=== PATIENT | male | born 1950 | race Caucasian/White ===

== ENCOUNTER → 2018-10-17 07:57 | Outpatient (CLI) | payer OTHER, SELFPAY ==
[2017-06-26 15:34] VITALS: BMI 36.1
[2018-10-17 09:27] LABS: Anion Gap 7 (5-15); BUN 20 mg/dL (7-18); Calcium,Total 8.2 mg/dL (8.5-10.1); Chloride 108 mmol/L (98-107); Cholesterol 152 mg/dL (200); Creatinine, Serum 0.95 mg/dL (0.70-1.30); EST Glomerular Filtration Rate 84 mL/min (>60); Est Glom Filt Rate - Afr Amer 101 mL/min (>60); Glucose 95 mg/dL (74-106); High Density Lipoprotein 37 mg/dL; Potassium 4.1 mmol/L (3.5-5.1); Sodium Level 143 mmol/L (136-145); Thyroid Stim Hormone (TSH) 1.39 uIU/mL (0.358-3.74); Triglycerides 137 mg/dL; Very Low Density Lipoprotein 27 mg/dL (5-40)
== END ==
PROVIDERS: Family Provider Family Medicine; PCP Family Medicine; Referring Provider Family Medicine; Visit Provider Family Medicine
DX: E78.5 Hyperlipidemia, unspecified (principal); E03.9 Hypothyroidism, unspecified; G20 Parkinson's disease
CPT/HCPCS: 36415; 80048; 80061; 84443

== ENCOUNTER → 2019-04-15 17:01 | Outpatient (CLI) | payer OTHER, SELFPAY ==
[2017-06-26 15:34] VITALS: BMI 36.1
[2019-04-15 17:41] LABS: Absolute Neutrophil Count 3.8 X10^3/uL (2.0-7.7); Basophil# 0.02 X10^3/uL; Basophil% 0.3 % (0-1); Eosinophil# 0.12 X10^3/uL; Hematocrit 42.6 % (40-54); Hemoglobin 13.5 g/dl (13.0-16.5); Lymphocyte % 25.2 % (19-41); Mean Corp Hgb Conc 31.7 g/gl (32-36); Mean Corpuscular Hgb 29.2 pg (27.0-32.0); Mean Corpuscular Volume 92.2 fL (80-94); Mean Platelet Vol. 9.6 fl (6.2-12.0); Monocyte# 0.47 X10^3/uL; Monocyte% 7.9 % (0-10); Neutrophil # 3.83 X10^3/uL (2.7-7.7); Neutrophil % 64.4 % (47-70); Platelet Count 257 K/mm3 (150-450); RBC Distribution Width CV 14.3 % (11.6-14.6); RBC Distribution Width SD 47.6 fl (35.1-43.9); Red Blood Count 4.62 M/mm3 (4.6-6.2)
[2019-04-15 17:45] LABS: POSITIVE COUNT NO; POSITIVE DIFFERENTIAL NO; POSITIVE MORPHOLOGY NO
[2019-04-15 18:35] LABS: D-Dimer Quantitative (DVT/PE) 0.73 FEU/ug/m (0.27-0.49)
[2019-04-15 18:41] LABS: ALB/GLOB Ratio 1.1 RATIO (0.9-2.4); AST(SGOT) 18 U/L (15-37); Alanine Aminotransfer ALT/SGPT 16 U/L (16-61); Albumin, Serum 3.6 g/dL (3.2-5.0); Alkaline Phosphatase 72 U/L (45-117); Anion Gap 5 (5-15); BUN 15 mg/dL (7-18); BUN/Creat Ratio 15.7 RATIO (10-20); Calcium,Total 8.3 mg/dL (8.5-10.1); Chloride 108 mmol/L (98-107); Creatinine, Serum 0.96 mg/dL (0.70-1.30); EST Glomerular Filtration Rate 83 mL/min (>60); Est Glom Filt Rate - Afr Amer 101 mL/min (>60); Globulin 3.2 g/dL (2.2-4.2); Glucose 107 mg/dL (74-106); PSA,Total - Annual Screen 2.14 ng/mL (0.00-4.00); Potassium 4.2 mmol/L (3.5-5.1); Protein, Total 6.8 g/dL (6.4-8.2); Sodium Level 142 mmol/L (136-145); Thyroid Stim Hormone (TSH) 1.02 uIU/mL (0.358-3.74)
== END ==
PROVIDERS: Family Provider Family Medicine; PCP Family Medicine; Referring Provider Family Medicine; Visit Provider Family Medicine
DX: Z12.5 Encounter for screening for malignant neoplasm of prostate (principal); M79.89 Other specified soft tissue disorders
CPT/HCPCS: 36415; 80053; 84153; 84443; 85025; 85379; G0103

== ENCOUNTER 2019-04-16 10:03 | Emergency (ER) | payer OTHER, SELFPAY ==
[2019-04-16 10:04] VITALS: BP 151/90; PULSE 70; RESP 19; TEMP 36.5; O2SAT 95; BMI 39.5
--- NOTE | 2019-04-16 10:24 | EKG12_ITS ---
Test Reason : SOB Blood Pressure : / mmHG Vent. Rate : 069 BPM Atrial Rate : 069 BPM P-R Int : 190 ms QRS Dur : 086 ms QT Int : 388 ms P-R-T Axes : 073 -32 003 degrees QTc Int : 415 ms Normal sinus rhythm Left axis deviation Inferior infarct , age undetermined Abnormal ECG When compared with ECG of 01-DEC-2012 05:54, Premature atrial complexes are no longer Present Inferior infarct is now Present Nonspecific T wave abnormality no longer evident in Lateral leads Confirmed by JIL ARREDONDO ([id number]), writer editor FRIDA ANTUNEZ ([id number]) on 04/28/2019 1:01:52 PM Referred By: Zana Antunez Confirmed By:SHERRELL ARREDONDO
--- NOTE | 2019-04-16 10:29 | ED.VIS.GEN ---
History of Present Illness Chief Complaint: Shortness of Breath Detail of Chief Complaint: Sent because of elevated d-dimer Informant: Patient, PCP Onset: Weeks Context: Gradual Onset Timing: Continuous Quality: Shortness of breath for approximately 3 weeks and swelling greater than 1 w Location: Respiratory and lower extremity Current Severity: Mild Maximum Severity: Moderate Worsened by: Increased shortness of breath with exertion Relieved by: Nothing Associated Symptoms: 5 pound weight gain and stable two-pillow orthopnea Narrative: Patient is an elderly male with no history of coronary disease, congestive heart failure who was sent to the emergency room because of a d-dimer of 0.73. I took the call from his physician, Dr. MILIND Antunez. He informed me that he did not believe he had a PE or DVT when he ordered a d-dimer. He ordered it because of bilateral leg swelling. Patient denies fever, chills night sweats. He denies ocular, visual auditory symptoms. He denies rhinorrhea, congestion or postnasal drainage. He denies sore throat. He denies cough or pleuritic chest pain. He denies exertional chest pain. He denies diaphoresis. He denies hematemesis, melena hematochezia. He states he has not been as active and sitting more. He does report stable two-pillow orthopnea. He denies PND. He states he had outpatient tests drawn yesterday and was contacted last evening because of abnormal blood test. - Past Medical History (1) Glaucoma Status: Chronic (2) Hypothyroidism Status: Chronic (3) SAUL (obstructive sleep apnea) Status: Chronic Past Medical History - Allergies and Home Meds Allergies/Adverse Reactions: Allergies varicella virus vaccine live [From Varivax (PF)] Allergy (Verified 04/16/19 10:07) Swelling swelling Primary Care Physician: Zana Antunez MD [Primary Care Provider] - Prior records reviewed: Yes - Obstructive sleep apnea Lives: Alone Smoking Status: Never smoker Alcohol: None Drugs: None - Family History Maternal Family History: Reports: No pertinent history Review of Systems General: Denies: Chills, Fever, Sweats Eyes: Denies: Visual changes - bilaterally, Blurred Vision - bilaterally, Diplopia ENT: Denies: Rhinorrhea, Sore throat Cardiovascular: Denies: Chest pain, Palpitations Respiratory: Reports: Dyspnea, Dyspnea on exertion, Orthopnea. Denies: Cough, Sputum, Paroxysmal nocturnal dyspnea, -, - Gastrointestinal: Denies: Abdominal pain, Nausea, Vomiting, Diarrhea, Melena, Hematochezia Genitourinary: Denies: Dysuria, Hematuria, Frequency Musculoskeletal: Reports: Swelling - Both lower extremities to groin. Denies: Myalgias, Arthralgias, Back pain, Extremity Pain Skin: Denies: Rash, Wounds Neurological: Reports: Weakness. Denies: Headache, Parasthesia, Numbness Hematologic: Denies: Easy bruising, Easy bleeding Allergy: Denies: Uticaria, Swelling of the mouth Physical Exam Vital Signs/Narrative: Vital Signs Temp Pulse Resp BP Pulse Ox 04/16/19 10:04 97.7 F L 70 19 H 151/90 H 95 Inital Vital Signs reviewed: Yes General: Well nourished, Well developed, Obese, No Acute Distress Head: Normocephalic, Atraumatic Eyes: Perrl, EOMI. Negative for: Pale conjunctiva, Scleral icterus, - ENT: Moist mucous membranes, No rhinorrhea Neck: Supple, Nontender, No lymphadenopathy, No JVD, - Cardiovascular: Regular rate, Regular rhythm, No murmurs Respiratory: No distress, CTA bilaterally, Chest nontender Abdomen: Soft, Nontender, Nondistended, Normal bowel sounds, No masses Rectal: Deferred : - - Patient states he saw his urologist last week and was informed that his prostate is slightly enlarged. Back: Nontender, Normal Inspection, - - Mild pitting edema of the sacral region Extremities: Nontender, Edema - 3+ pitting Skin: Normal color, No rash, No Trauma. Negative for: Cyanosis, Jaundice Neurological: Alert, Oriented x3, Cranial nerves II-XII grossly intact, Normal Strength, Normal Sensation Psychological: Depressed Diagnostic/Tx/Re-eval Chest X-Ray - ED: 2 View, Read by ED Physician, Normal, Heart, Lungs, Mediastinum, Bony Structures, No Acute Disease Impressions Chest X-Ray 04/16/19 11:01 IMPRESSION: Stable examination. No acute abnormality is seen. Electronically Signed: Og Esquivel, at 11:16 EDT , Service support , 04/16/19 11:01 Chest PA and Lateral [RAD] Stat Laboratory Results 04/16/19 04/16/19 10:43 10:43 Troponin I < 0.015 B-Natriuretic Peptide 36.3 - Rhythm Strip Rhythm Strip: Sinus Rhythm Rate: 71 Ectopy: None - EKG Initial EKG Interpretation: Sinus Rhythm - Ventricular rate 69. HI interval, QRS duration QT interval are normal. Telephone to the left. Artifact secondary to movements noted. Computer read inferior infarct of undetermined age. There is a insignificant flipped T wave in lead III which is a normal variant. - Medical Decision Making Work from yesterday was reviewed. CBC, conference of metabolic panel were normal. D-dimer was 0.73. Using MD calculator conclusion when corrected for age unlikely pulmonary embolus. With history of weight gain, decreased mobility chronic 2 pillow orthopnea history obstructive sleep apnea suspect right heart failure and not pulmonary embolus. To evaluate patient's symptoms chest x-ray was ordered as well as EKG and troponin. Will also order BNP. Patient was informed of his test results from yesterday and today. Suspect patient's bilateral leg edema secondary to noncompliance with his BiPAP machine for obstructive sleep apnea. Will obtain venous duplex study to evaluate for DVT. If negative will discharge with appropriate home-going instruction for obstructive sleep apnea. And will place or adjust dosage of diuretics. Venous duplex study reveals lymphedema. There is no evidence of DVT. With history of weight gain, lymphedema and noncompliance with CPAP/BiPAP suspect this is contributing to patient's bilateral lymphedema. Since patient is on no diuretic will start on 20 mg a day and have him follow-up with Dr. MILIND Antunez in 3 to 5 days. ED Disposition - Plan for ED Patient: Disposition: Home or Assisted Living Diagnosis: Lymphedema of both lower extremities, Obstructive sleep apnea Instructions: ED Lymphedema, ED Apnea Sleep Obstructive Prescriptions: Furosemide [Lasix] 20 mg PO DAILY #30 tab Referrals: Zana Antunez MD [Primary Care Provider] - 1 Week Additional Instructions: Many of your symptoms are probably related to noncompliance with CPAP/BiPAP machine for your obstructive sleep apnea. It is very important for you to use your machine. Noncompliance may lead to pulmonary hypertension, heart failure, increasing leg edema, hypertension and generalized weakness/fatigue.
--- NOTE | 2019-04-16 11:01 | RAD_ITS ---
STUDY: X-RAY CHEST REASON FOR EXAM: Male, 68 years old. Shortness of breath. History of anasarca. TECHNIQUE: PA and lateral views of the chest. COMPARISON: Comparison is made with prior study dated December 27, 2017. FINDINGS: EKG electrodes are seen. Mild elevation of the right hemidiaphragm. There is no demonstrated pleural abnormality. Normal size heart. Normal mediastinum and lazara. There is prominence of the pulmonary hilar arteries without peripheral pulmonary vascular congestion, suggesting pulmonary hypertension. There is atherosclerotic tortuosity of the aortic arch and descending thoracic aorta. There are diffuse degenerative changes of the visualized thoracic spine. Normal visualized ribs, clavicles, and shoulders. There is no demonstrated abnormality of the visualized soft tissue structures of the upper abdomen. RAD/Chest PA and Lateral IMPRESSION: Stable examination. No acute abnormality is seen. Electronically Signed: Og Esquivel, at 11:16 EDT , Service support ,
[2019-04-16 11:23] LABS: BNP,B-Type NATRIURETIC PEPTIDE 36.3 pg/mL (0-100)
--- NOTE | 2019-04-16 11:29 | VDLE_ITS ---
Reason For Study: Elevated D-dimer RIGHT LEFT GSV is normal. GSV is normal. CFV is compressible, spontaneous, phasic, CFV is compressible, spontaneous, phasic, competent and demonstrates normal competent, and demonstrates normal augmentation. augmentation. FV is compressible, spontaneous, phasic, FV is compressible, spontaneous, phasic, competent and demonstrates normal competent and demonstrates normal augmentation. augmentation. POP V is compressible, spontaneous, phasic, POP V is compressible, spontaneous, phasic, competent and demonstrates normal competent and demonstrates normal augmentation. augmentation. T/P Trunk is compressible. T/P Trunk is compressible. PTV is compressible. PTV is compressible. RT PerV is compressible. LT PerV is compressible. Procedure Exam performed in department. A preliminary report was called and/or faxed to Dr. Wan. Interpretation Summary No evidence for acute deep venous thrombosis bilateral lower extremities with patent and compressible bilateral great saphenous veins. Ordering Physician: Robby Wan Referring Physician: Zana Antunez M.D. Performed By: Destini King RVT
[2019-04-16 12:55] VITALS: BP 146/98; PULSE 66; O2SAT 99
== END 2019-04-16 12:55 | disposition home or self-care (01) ==
PROVIDERS: Emergency Provider Emergency Medicine; Family Provider Family Medicine; PCP Family Medicine
DX: I89.0 Lymphedema, not elsewhere classified (principal); G47.33 Obstructive sleep apnea (adult) (pediatric); E03.9 Hypothyroidism, unspecified; H40.9 Unspecified glaucoma; E66.9 Obesity, unspecified; Z68.39 Body mass index [BMI] 39.0-39.9, adult
CPT/HCPCS: 71046; 83880; 84484; 93005; 93970; 99285; A4216

== ENCOUNTER → 2019-07-12 13:55 | Outpatient (CLI) | payer OTHER, SELFPAY ==
[2019-07-12 15:18] LABS: Absolute Lymphocyte Count 1.65 X10^3/uL (0.83-4.51); Absolute Neutrophil Count 3.8 X10^3/uL (2.0-7.7); Basophil# 0.04 X10^3/uL; Basophil% 0.7 % (0-1); Eosinophil# 0.06 X10^3/uL; Hematocrit 46.3 % (40-54); Hemoglobin 15.1 g/dL (13.0-16.5); Lymphocyte # 1.65 X10^3/ul (4.0); Lymphocyte % 27.2 % (19-41); Mean Corp Hgb Conc 32.6 g/dL (32-36); Mean Corpuscular Hgb 30.3 pg (27.0-32.0); Mean Corpuscular Volume 92.8 fL (80-94); Monocyte% 8.2 % (0-10); NRBC Flagged by Analyzer 0 % (0-5); Neutrophil % 62.6 % (47-70); Platelet Count 256 K/mm3 (150-450); RBC Distribution Width CV 13.7 % (11.6-14.6); RBC Distribution Width SD 46.6 fl (35.1-43.9); Red Blood Count 4.99 M/mm3 (4.6-6.2); White Blood Count 6.1 K/mm3 (4.4-11.0)
[2019-07-12 15:34] LABS: ALB/GLOB Ratio 1.1 RATIO (0.9-2.4); AST(SGOT) 18 U/L (15-37); Alanine Aminotransfer ALT/SGPT 17 U/L (16-61); Albumin, Serum 3.9 g/dL (3.2-5.0); Alkaline Phosphatase 66 U/L (45-117); Anion Gap 4 (5-15); BUN 20 mg/dL (7-18); BUN/Creat Ratio 20.1 RATIO (10-20); Calcium,Total 8.5 mg/dL (8.5-10.1); Chloride 107 mmol/L (98-107); EST Glomerular Filtration Rate 80 mL/min (>60); Est Glom Filt Rate - Afr Amer 96 mL/min (>60); Globulin 3.7 g/dL (2.2-4.2); Glucose 98 mg/dL (74-106); Potassium 3.7 mmol/L (3.5-5.1); Protein, Total 7.6 g/dL (6.4-8.2); Sodium Level 140 mmol/L (136-145)
== END ==
PROVIDERS: Family Provider Family Medicine; PCP Family Medicine; Visit Provider Nurse Practitioner Family
DX: R10.31 Right lower quadrant pain (principal)
CPT/HCPCS: 36415; 80053; 85025

== ENCOUNTER → 2019-07-17 10:01 | Outpatient (CLI) | payer OTHER, SELFPAY ==
--- NOTE | 2019-07-17 10:19 | RAD_ITS ---
STUDY: X-RAY - LUMBAR SPINE REASON FOR EXAM: Male, 69 years old. Back pain TECHNIQUE: 5 view(s) of the lumbar spine were obtained. COMPARISON: None FINDINGS: Normal lumbar lordosis. There is no substantial scoliosis. There is a normal alignment of the vertebrae. There is multilevel endplate spondylosis of the lumbar vertebrae. There is multi-level degenerative disc disease with multi-level disc space narrowing. Postsurgical fusion at L4-5 with artificial intervertebral disc spacer The soft tissue structures are unremarkable. RAD/L/S Spine Min 4 Views IMPRESSION: Degenerative changes of the spine, as detailed above. Electronically Signed: Rodney Tate DO at 11:15 EDT Tel , Service support ,
--- NOTE | 2019-07-17 10:19 | RAD_ITS ---
STUDY: X-RAY - THORACIC SPINE REASON FOR EXAM: Male, 69 years old. Back pain TECHNIQUE: 3 view(s) of the thoracic spine were obtained. COMPARISON: None. FINDINGS: Normal kyphosis of the thoracic spine. There is no substantial scoliosis. There is multilevel endplate spondylosis of the thoracic vertebrae. There is multilevel disc space narrowing of the thoracic spine. The soft tissue structures are unremarkable. RAD/Thoracic Spine 3 Views IMPRESSION: Degenerative disc disease without acute findings Electronically Signed: Rodney Tate DO at 11:15 EDT Tel , Service support ,
== END ==
PROVIDERS: Family Provider Family Medicine; PCP Family Medicine; Referring Provider Family Medicine; Visit Provider Family Medicine
DX: M54.5 Low back pain (principal); M54.6 Pain in thoracic spine
CPT/HCPCS: 72072; 72110

== ENCOUNTER → 2019-10-13 17:05 | Outpatient (CLI) | payer OTHER, SELFPAY ==
[2019-10-13 17:53] LABS: Hemoglobin A1c 5.6 % (4.2-6.3)
[2019-10-13 18:16] LABS: ALB/GLOB Ratio 1.2 RATIO (0.9-2.4); AST(SGOT) 19 U/L (15-37); Alanine Aminotransfer ALT/SGPT 18 U/L (16-61); Albumin, Serum 3.9 g/dL (3.2-5.0); Alkaline Phosphatase 76 U/L (45-117); Anion Gap 6 (5-15); BUN 18 mg/dL (7-18); BUN/Creat Ratio 20.3 RATIO (10-20); Calcium,Total 8.9 mg/dL (8.5-10.1); Chloride 107 mmol/L (98-107); Creatinine, Serum 0.89 mg/dL (0.70-1.30); EST Glomerular Filtration Rate 91 mL/min (>60); Est Glom Filt Rate - Afr Amer 110 mL/min (>60); Globulin 3.3 g/dL (2.2-4.2); Glucose 110 mg/dL (74-106); Potassium 4.2 mmol/L (3.5-5.1); Protein, Total 7.2 g/dL (6.4-8.2); Sodium Level 141 mmol/L (136-145); T4 Free Direct 1.15 ng/dL (0.76-1.46); Thyroid Stim Hormone (TSH) 1.54 uIU/mL (0.358-3.74)
== END ==
PROVIDERS: Family Provider Family Medicine; PCP Family Medicine; Referring Provider Family Medicine; Visit Provider Family Medicine
DX: R73.09 Other abnormal glucose (principal); E66.9 Obesity, unspecified; E03.9 Hypothyroidism, unspecified
CPT/HCPCS: 36415; 80053; 83036; 84439; 84443

== ENCOUNTER → 2019-11-12 20:00 | Outpatient (CLI) | payer OTHER, SELFPAY | PROVIDERS: Family Provider Family Medicine; PCP Family Medicine; Referring Provider Family Medicine; Visit Provider Family Medicine | DX: G47.33 Obstructive sleep apnea (adult) (pediatric) (principal) | CPT/HCPCS: 95811 ==

== ENCOUNTER 2019-11-19 01:56 | Inpatient (IN) | payer OTHER, MEDICARE, SELFPAY ==
[2019-11-19] VITALS (16 sets, daily range): BP systolic 103–189; BP diastolic 66–109; PULSE 57–74; RESP 16–19; TEMP 36.5–37.7; O2SAT 94–99; BMI 38.1; BMI 36.9; BMI 36.8
--- NOTE | 2019-11-19 02:13 | CT_ITS ---
STUDY: CT BRAIN WITHOUT CONTRAST REASON FOR EXAM: Male, 69 years old. Headache for two weeks. Patient has Parkinson''s disease. RADIATION DOSAGE (If Supplied By Facility): CTDIvol = ( 44.99 ) mGy, DLP = ( 846.73 ) mGycm TECHNIQUE: Transaxial CT imaging of the brain was performed without administration of intravenous contrast material. Multiplanar reformations are submitted for interpretation. Individualized dose optimization techniques were used for this CT. COMPARISON: MRI of the brain dated December 23, 2014. FINDINGS: Normal soft tissue structures. Normal calvarium. There is mild cerebral atrophy with widening of the extra-axial spaces and ventricular dilatation. Normal white matter tracts of the cerebral hemispheres. Normal basal ganglia and thalami. Normal brainstem. There is mild cerebellar atrophy. There is no intracranial hemorrhage. There is minimal atherosclerotic calcification of the intracranial arteries. There is mild mucoperiosteal thickening within the ethmoid sinuses. There is moderate deviation of nasal septum towards the right. CT/Brain/Head without Contrast IMPRESSION: 1. Chronic involutional changes of the brain. 2. No CT evidence of acute intracranial hemorrhage. Electronically Signed: Kaylin Antunez MD at 3:36 EST , Service support ,
[2019-11-19] MEDS: Ketorolac 15 MG/ML Vial IV ×2 (02:32→04:45)
[2019-11-19] MEDS: Metoclopramide 10 MG/2 ML Vial 5 MG IV (02:32)
[2019-11-19] MEDS: DiphenhydrAMINE 50 MG/ML Syringe 12.5 MG IV (02:32)
[2019-11-19 02:35] LABS: Absolute Lymphocyte Count 1.73 X10^3/uL (0.83-4.51); Absolute Neutrophil Count 5.1 X10^3/uL (2.0-7.7); Basophil# 0.06 X10^3/uL; Basophil% 0.8 % (0-1); Eosinophil# 0.12 X10^3/uL; Eosinophils% 1.6 % (0-5); Hematocrit 47.1 % (40-54); Hemoglobin 15.2 g/dL (13.0-16.5); Lymphocyte # 1.73 X10^3/ul (4.0); Lymphocyte % 22.6 % (19-41); Mean Corp Hgb Conc 32.3 g/dL (32-36); Mean Corpuscular Hgb 29.7 pg (27.0-32.0); Mean Corpuscular Volume 92.2 fL (80-94); Mean Platelet Vol. 9.1 fl (6.2-12.0); Monocyte# 0.63 X10^3/uL; Monocyte% 8.2 % (0-10); NRBC Flagged by Analyzer 0 % (0-5); Neutrophil # 5.11 X10^3/uL (2.7-7.7); Neutrophil % 66.7 % (47-70); Platelet Count 250 K/mm3 (150-450); RBC Distribution Width CV 13.3 % (11.6-14.6); RBC Distribution Width SD 45.1 fl (35.1-43.9); Red Blood Count 5.11 M/mm3 (4.6-6.2); White Blood Count 7.7 K/mm3 (4.4-11.0)
[2019-11-19 02:52] LABS: Anion Gap 5 (5-15); BUN 20 mg/dL (7-18); BUN/Creat Ratio 19.8 RATIO (10-20); Calcium,Total 9.1 mg/dL (8.5-10.1); Chloride 107 mmol/L (98-107); Creatinine, Serum 1.01 mg/dL (0.70-1.30); EST Glomerular Filtration Rate 78 mL/min (>60); Est Glom Filt Rate - Afr Amer 95 mL/min (>60); Estimated Creatinine Clearance 80.21 ml/min; Glucose 111 mg/dL (74-106); Potassium 3.9 mmol/L (3.5-5.1); Sodium Level 140 mmol/L (136-145)
--- NOTE | 2019-11-19 03:31 | ED.VIS.GEN ---
History of Present Illness Chief Complaint: Headache Informant: Patient, Family Onset: Weeks - 2 weeks Context: Gradual Onset Timing: Waxes and wanes Current Severity: Moderate Maximum Severity: Severe Narrative: Patient presents with a two-week history of headache. He describes a bandlike sensation around his head. He denies light sensitivity or vomiting. No recent head injury. Patient does have a history of Parkinson's and his Mirapex was recently stopped. He is unsure if this is correlating with his headaches. Patient states his headaches do improve for short time after taking carbidopa, but never completely resolved. He was seen by neurology and is scheduled for an outpatient CAT scan of his head next week. - Past Medical History (1) Parkinsons Status: Chronic (2) BPH (benign prostatic hyperplasia) Status: Chronic (3) GERD (gastroesophageal reflux disease) Status: Chronic (4) Glaucoma Status: Chronic (5) Hypothyroidism Status: Chronic (6) SAUL (obstructive sleep apnea) Status: Chronic Past Medical History - Allergies and Home Meds Allergies/Adverse Reactions: Allergies varicella virus vaccine live [From Varivax (PF)] Allergy (Verified 11/19/19 01:57) Swelling swelling Primary Care Physician: Zana Vásquez MD [Primary Care Provider] - Prior records reviewed: Yes Lives: Spouse/ Significant Other Smoking Status: Never smoker - Family History Maternal Family History: Reports: No pertinent history Review of Systems General: Denies: Chills, Fever Eyes: Denies: Visual changes - bilaterally ENT: Denies: Bilateral ear pain Cardiovascular: Denies: Chest pain Respiratory: Denies: Dyspnea, Cough Gastrointestinal: Denies: Abdominal pain, Nausea, Vomiting, Diarrhea Musculoskeletal: Denies: Swelling, Extremity Pain Skin: Denies: Rash Neurological: Reports: Headache. Denies: Parasthesia, Numbness Hematologic: Denies: Easy bruising Allergy: Denies: Uticaria Physical Exam Vital Signs/Narrative: Vital Signs Temp Pulse Resp BP Pulse Ox 11/19/19 02:35 98 11/19/19 01:57 97.7 F L 69 16 188/109 H 98 Inital Vital Signs reviewed: Yes General: Well nourished, Well developed Head: Normocephalic ENT: Moist mucous membranes Neck: Supple Cardiovascular: Regular rate, Regular rhythm Respiratory: No distress, CTA bilaterally Abdomen: Soft, Nontender Skin: Normal color, No rash Neurological: Alert, Oriented x3, - - Good strength and sensation. Underlying Parkinson's noted. Psychological: Normal affect Diagnostic/Tx/Re-eval Impressions Brain CT 11/19/19 02:13 IMPRESSION: 1. Chronic involutional changes of the brain. 2. No CT evidence of acute intracranial hemorrhage. Electronically Signed: Kaylin Antunez MD at 3:36 EST , Service support , 11/19/19 02:13 Brain/Head without Contrast [CT] Stat Laboratory Results 11/19/19 11/19/19 02:33 02:33 WBC 7.7 RBC 5.11 Hgb 15.2 Hct 47.1 MCV 92.2 MCH 29.7 MCHC 32.3 RDW Std Deviation 45.1 H RDW Coeff of Madisyn 13.3 Plt Count 250 MPV 9.1 Immature Gran % (Auto) 0.100 Neut % (Auto) 66.7 Lymph % (Auto) 22.6 Throckmorton % (Auto) 8.2 Eos % (Auto) 1.6 Baso % (Auto) 0.8 Absolute Neuts (auto) 5.1 Absolute Lymphs (auto) 1.73 Nucleated RBC % 0 Sodium 140 Potassium 3.9 Chloride 107 Carbon Dioxide 28.0 Anion Gap 5 BUN 20 H Creatinine 1.01 Estim Creat Clear Calc 80.21 Est GFR (MDRD) Af Amer 95 Est GFR (MDRD) Non-Af 78 BUN/Creatinine Ratio 19.8 Glucose 111 H Calcium 9.1 - Medical Decision Making Patient was initially given small doses of Toradol, Reglan, Benadryl. On repeat evaluation he stated his headache was down to a 4. His blood pressure was still quite elevated, in the 180s systolic. He was given a dose of labetalol and blood pressure improved to the 160s. When I went back into reevaluate him he stated his headache was worsening again and as I recycled the blood pressure in the room it was back in the high 180s systolic. Patient was given another round of Toradol along with a dose of steroids. At this time he states his headache is somewhat improved, but blood pressure when I walk in the room is 220 systolic. Patient's heart rate is in the mid to high 50s. I will start Cardene as it does not tend to drop the heart rate and we can slowly bring his blood pressure down. This may be contributing to his headache. I will speak with hospitalist regarding admission. ED Disposition - Plan for ED Patient: Disposition: Acute Care Hospital [facility] Diagnosis: Hypertensive urgency Referrals: Zana Vásquez MD [Primary Care Provider] -
[2019-11-19] MEDS: MethylPREDNISolone 125 MG/2 ML Vial IV (04:45)
[2019-11-19] MEDS: fentaNYL 100 MCG/2 ML Ampul 25 MCG IV (06:07)
--- NOTE | 2019-11-19 06:38 | EKG12_ITS ---
Test Reason : Blood Pressure : / mmHG Vent. Rate : 060 BPM Atrial Rate : 060 BPM P-R Int : 168 ms QRS Dur : 090 ms QT Int : 412 ms P-R-T Axes : 052 -35 -09 degrees QTc Int : 412 ms Normal sinus rhythm Left axis deviation Abnormal ECG Confirmed by EVELIN WALKER, GALLITO ([id number]), assistant film editor FRIDA ESCOBAR ([id number]) on 11/22/2019 1:30:28 PM Referred By: JEFF Confirmed By:GALLITO WATERS MD
[2019-11-19] MEDS: LORazepam 2 MG/ML Syringe 1 MG IV ×2 (09:42→14:32)
[2019-11-19] MEDS: Aspirin E.C. 81 MG Tablet PO (09:42)
[2019-11-19] MEDS: cloNIDine HCl 0.2 MG Tablet PO (09:42)
[2019-11-19] MEDS: Dorzolamide HCL/Timolol 10 ml Bottle 1 DRP OPHTHALMIC ×2 (10:42→22:05)
[2019-11-19] MEDS: Heparin Injection (Vial) 5,000 UNIT/ML VIAL 5000 UNIT SC ×2 (10:44→22:05)
[2019-11-19] MEDS: Tolterodine Tartrate 4 MG CAP.SA PO (10:45)
[2019-11-19] MEDS: Carbidopa/Levodopa 25/100 Tablet PO ×4 (10:45→22:38)
[2019-11-19] MEDS: CARBIDOPA/LEVODOPA CR 50/200 Tablet PO (10:53)
[2019-11-19] MEDS: Tamsulosin HCl 0.4 MG Capsule PO ×2 (11:19→18:16)
--- NOTE | 2019-11-19 11:50 | CASEMGMT ---
RN ANA [employer] CM to room to meet with patient for initial transition planning/care coordination assessment. RN ANA introduced self and role at [facility]. Pt voices understanding and consents to assessment at this time. Pt resting in bed in no distress at this time. Pt is A/O at this time and answers all questions appropriately. Care providers, pharmacy, and demographics verified/updated at this time. PCP: Thalia Specialists: Tayla (neuro), Veronica (urology) Preferred Pharmacy: [facility] Insurance: [employer], babberly A Prescription Benefit: Yes Living Will/HPOA: States does not have LW or HCPOA . Interested in more information and would like to talk with SW but would like to have his present. SW, Carmen, made aware. Pt asked to let staff know when his comes in to see if SW is available to come talk with them. LNOK: Living Arrangements: Lives with his in one-story home w/basement. Denies difficulty with stairs. Is independent with ADL's, except needs some assistance with donning shoes/socks since his back surgery in 2017. does home mgmt tasks. Transportation: Pt does not drive. Another teacher takes him to/from work. drives and will take him home @ discharge. Denies transportation concerns. DME: States has the following DME: CPAP. Pt states no need for further DME at this time. HHC/SNF: Hx RU in 2017 after back surgery. No history of HHC. Pt wishes to return home and states has no concerns with going home at time of discharge. 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 CM to follow for any discharge planning/needs. Pt voices no further concerns/needs at this time. Advised pt to ask for CM if any further questions/concerns/needs arise. Voices understanding. PLAN: Home PT/OT evals pending. CM to follow. Beatriz PINK RN, CM
--- NOTE | 2019-11-19 12:15 | HP.PCM_ITS ---
Problem List (1) Parkinsons Status: Chronic (2) BPH (benign prostatic hyperplasia) Status: Chronic (3) GERD (gastroesophageal reflux disease) Status: Chronic (4) Hypertensive urgency Status: Acute (5) Glaucoma Status: Chronic (6) Hypothyroidism Status: Chronic (7) SAUL (obstructive sleep apnea) Status: Chronic History of Present Illness Date of Admission: 11/19/19 Chief Complaint: Intractable headache x2 weeks. The patient is a 69 year old M who presents the emergency room due to intractable headache which is been ongoing for 2 weeks. He denies vision changes, unilateral weakness or other neuro symptoms. Patient's blood pressure was noted to be elevated on admission. He denies chest pain, shortness of breath. He was given Toradol and Solu-Medrol in ER, headache somewhat improved however not resolved. Patient reports recent increased anxiety and states he was placed on Zoloft by his neurologist which he began taking yesterday. He has a past medical history of Parkinson's disease, glaucoma, hypothyroidism, obstructive sleep apnea and GERD. Past Medical History Past Medical History (Chronic Problems): Chronic Problems Parkinsons (Chronic) BPH (benign prostatic hyperplasia) (Chronic) GERD (gastroesophageal reflux disease) (Chronic) Glaucoma (Chronic) Hypothyroidism (Chronic) SAUL (obstructive sleep apnea) (Chronic) Allergies varicella virus vaccine live [From Varivax (PF)] Allergy (Verified 11/19/19 01:57) Swelling swelling Home Medications: Ambulatory Orders Medication Instructions Recorded Aspirin E.C. [Ecotrin] 81 mg PO DAILY@0800 06/26/17 Bimatoprost [Lumigan Opthalmic] 1 drop EACH EYE QHS 06/26/17 Dorzolamide HCL/Timolol [Cosopt 1 drop OPHTHALMIC BID 06/26/17 Opth Drops] Levothyroxine Sodium [Synthroid] 200 mcg PO DAILY 06/26/17 Tamsulosin HCl [Flomax] 0.4 mg PO BID 06/26/17 Carbidopa/Levodopa 50/200 [Sinemet 1 tab PO DAILY 11/19/19 CR 50/200] Carbidopa/Levodopa [Carbidopa-Levo 50 mg PO 4X/DAY 11/19/19 25-100 mg Odt] Multivitamin [Daily Multiple 1 ea PO DAILY 11/19/19 Vitamin] Netarsudil Mesylate [Rhopressa] 1 drp OTIC (EAR) DAILY 11/19/19 Tolterodine Tartrate [Detrol LA] 4 mg PO DAILY 11/19/19 Surgical History: - - Lumbar fusion, partial thyroidectomy, uro-lift, cataract surgery, glaucoma drainage implant Psychiatric History: Anxiety Lives: Spouse/ Significant Other Smoking Status: Never smoker Alcohol: None Drugs: None - *Family History Maternal History Items: - - Pacemaker, type 2 diabetes mellitus Paternal History Items: - - Esophageal cancer Review of Systems Constitutional: Denies: Chills, Fever, Weight Change HEENT: Denies: Head Aches, Sinus Congestion, Sinus Drainage Cardiovascular: Denies: Chest Pain, Palpitations Respiratory: Denies: Cough, Shortness of breath at rest, Sputum production Gastrointestinal: Denies: Abdominal Pain, Nausea, Vomiting Genitourinary: Denies: Dysuria Musculoskeletal: Denies: Joint Pain, Joint Tenderness Skin: Denies: Rash, Wounds Neurological: Reports: Headaches. Denies: Change in Speech, Slurred speech, Confusion, Focal weakness, Numbness, Tingling Psychiatric: Reports: Anxiety Hematologic/ Lymphatic: Denies: Easy Bruising, Easy Bleeding VTE Information - Inpt Only VTE Present on Admission: No VTE Mechan Device Prophylaxis: None VTE Pharm Prophylaxis ordered?: Yes Patient Problems: Active and Suspected Problems Hypertensive urgency (Acute) - Physical Exam Vitals/I&O's: Vital Signs Temp Pulse Resp BP Pulse Ox 98.1 F 69 18 119/70 96 11/19/19 11:22 11/19/19 11:22 11/19/19 11:22 11/19/19 11:22 11/19/19 11:22 Oxygen Flow Rate (L/min) 2 Oxygen Delivery Method Room Air Weight: 279 lb 5.211 oz Body Mass Index (BMI) 36.8 Intake and Output for Last 24 Hours 11/17/19 11/18/19 11/19/19 23:59 23:59 23:59 Intake Total 538.33 / 538.33 Balance 538.33 / 538.33 General: Alert, Oriented x3, Cooperative HEENT: Atraumatic, PERRLA, EOMI, Normocephalic, - - Right eye ptosis, chronic Neck: Supple, No JVD, Negative Carotid Bruits Lungs: Clear to auscultation, Normal air movement Cardiovascular: Regular rate, Regular Rhythm, Normal S1, Normal S2, No murmurs Abdomen: Bowel Sounds Present, Soft, Non Tender, Non-Distended Extremities: No clubbing, No cyanosis, No edema, Capillary Refill Less than 3 Seconds Skin: No rashes, No breakdown Musculoskeletal: No Tenderness to Palpation of Joints or Extremities Neurological: Cranial nerves II-XII grossly intact, Neuro grossly intact Psych/Mental Status: Normal Affect, Appropriate Laboratory Results 11/19/19 02:33: WBC 7.7, RBC 5.11, Hgb 15.2, Hct 47.1, MCV 92.2, MCH 29.7, MCHC 32.3, RDW Std Deviation 45.1 H, RDW Coeff of Madisyn 13.3, Plt Count 250, MPV 9.1, Immature Gran % (Auto) 0.100, Neut % (Auto) 66.7, Lymph % (Auto) 22.6, [place] % (Auto) 8.2, Eos % (Auto) 1.6, Baso % (Auto) 0.8, Absolute Neuts (auto) 5.1, Absolute Lymphs (auto) 1.73, Nucleated RBC % 0 11/19/19 02:33: Sodium 140, Potassium 3.9, Chloride 107, Carbon Dioxide 28.0, Anion Gap 5, BUN 20 H, Creatinine 1.01, Estim Creat Clear Calc 80.21, Est GFR (MDRD) Af Amer 95, Est GFR (MDRD) Non-Af 78, BUN/Creatinine Ratio 19.8, Glucose 111 H, Calcium 9.1 Current Medications Aspirin (Ecotrin) 81 mg PO DAILY@0800 [facility] Last Admin: 11/19/19 09:42 Dose: 81 mg Documented by: Carbidopa/Levodopa (Sinemet Cr) 1 tablet PO 0600 [facility] Last Admin: 11/19/19 10:53 Dose: 1 tablet Documented by: Carbidopa/Levodopa (Sinemet) 2 tablet PO 0730,1130,1630,2200 [facility] Dorzolamide/Timolol (Cosopt Opth Drops) 1 drop OPHTHALMIC BID [facility] Last Admin: 11/19/19 10:42 Dose: 1 drop Documented by: Heparin Sodium (Porcine) (Heparin Na) 5,000 unit SC Q12 [facility] Last Admin: 11/19/19 10:44 Dose: 5,000 unit Documented by: Latanoprost (Xalatan Opthalmic) 1 drop EACH EYE QHS [facility] Levothyroxine Sodium (Synthroid) 200 mcg PO DAILY@0600 [facility] Non-Formulary Medication (Netarsudil Mesylate) 1 drp otic (ear) DAILY [facility] Oxycodone HCl (Oxyir) 5 - 10 mg PO Q4H PRN PRN PRN Reason: Pain Score 1-10/10 Pramipexole Dihydrochloride (Mirapex) 1 mg PO TID [facility] Sodium Chloride () 10 - 40 ml IV UD PRN PRN Reason: SALINE FLUSH Tamsulosin HCl (Flomax) 0.4 mg PO BID@0830,1730 [facility] Last Admin: 11/19/19 11:19 Dose: 0.4 mg Documented by: Tolterodine Tartrate (Detrol La) 4 mg PO DAILY [facility] Last Admin: 11/19/19 10:45 Dose: 4 mg Documented by: Assessment/Plan All Active Problems Hypertensive urgency (Acute) 1. Intractable headache-somewhat improved following Toradol, IV Solu-Medrol in ER. IV Depakote x1. Brain CT shows chronic changes. Obtain MRI of brain. 2. Hypertensive urgency-currently improved. Patient is not on antihypertensive regimen at home. He received clonidine x1 on admission. Elevated blood pressure possibly related to #1 as well as patient report of increased anxiety. Continue to monitor. 3. Parkinson's Disease-continue home carbidopa/levodopa regimen. 4. Glaucoma-continue home medication. 5. Hypothyroidism-continue Synthroid. 6. Obstructive sleep apnea-continue home CPAP regimen. 7. Anxiety-initiated on Zoloft yesterday by neurology. Continue Zoloft 50 mg p.o. daily. 9. BPH-continue Flomax, Detrol LA regimen. DVT prophylaxis-heparin subcu This patient was seen by INÉS Brock under the supervision of Dr. Rodriguez.
--- NOTE | 2019-11-19 12:17 | MRI_ITS ---
STUDY: MRI BRAIN WITH AND WITHOUT CONTRAST REASON FOR EXAM: Male, 69 years old. intactable headache, HIGH BLOOD PRESSURE TECHNIQUE: Standardized multiplanar fat and water weighted pulse sequences were obtained. DOTAREM 25 IV was administered for the contrast portion of the examination. COMPARISON: CT brain without contrast November 19, 2019 FINDINGS: Mild diffuse cerebral atrophy.. Normal white matter tracts of the supratentorial brain. Normal bilateral basal ganglia. Normal thalami. There is no extra-axial fluid accumulation. Normal flow voids within the major intracranial circulation suggesting patency by spin echo criteria. Normal venous enhancement. There is no enhancing intra-axial or extra-axial abnormality. Normal sella turcica, pituitary gland, infundibular stalk, optic chiasm and hypothalamus. Normal tectal plate and pineal gland. Normal midbrain, margarita and medulla. Normal cerebellum. Normal basal cisterns. Normal bilateral temporal bones. Normal bilateral internal auditory canals. Moderate bilateral ethmoid sinus disease. Postsurgical changes of the orbits.. Normal calvarium and skull base. Normal visualized soft tissue structures. Normal visualized upper cervical spine. MRI/Brain W/WO Contrast IMPRESSION: Mild cerebral atrophy without evidence for significant white matter disease or acute infarct. No enhancing lesions following contrast administration. Electronically Signed: Trip Hong MD at 16:33 EST , Service support ,
[2019-11-19] MEDS: oxyCODONE 5 MG Tablet PO (12:33)
[2019-11-19] MEDS: Pramipexole Di-HCl 1 MG Tablet PO ×2 (13:36→22:06)
--- NOTE | 2019-11-19 13:54 | CASEMGMT ---
Social Work Received referral from GREGG PEREZ that pt would like to complete Advance directives. SW met with pt and and explained living will and health care POA. Both pt and would like to complete documents and SW assisted with completion. Original given to pt and copy place on chart. ANNETTE Freitas
[2019-11-19] MEDS: 0.9% Saline Lock 10 ML Syringe IV ×2 (14:32→22:16)
--- NOTE | 2019-11-19 15:20 | CASEMGMT ---
GREGG PEREZ NOTE: Reviewed PT/OT notes. Walker and further therapy recommended. To room to talk with pt. Pt out of room at this time @ MRI, but , Ludy, present in room. GREGG PEREZ introduced self and role. Ludy made aware of recommendations. Ludy states that they do have a walker available at home if pt would need it, but she states she does not think pt will need it, once this medication they put him back on starts to kick in. Discussed OP PT/OT. states pt has had OP therapy in the past and also does not feel pt will need it. She was made aware, that if pt decides he would like it, to discuss this with PCP. She voices understanding. Ludy states pt has an appt with his PCP, Dr Vásquez, on 11/26 @ 1400. . Ludy states pt had a CT scan scheduled for 11/23 and she is not sure that it has been cancelled. Call placed to Radiology. Confirmed that CT scan that was scheduled for 11/23 has been cancelled. Beatriz PINK RN, CM
[2019-11-19] MEDS: Latanoprost 0.005% 1 Bottle 1 DRP EACH EYE (22:09)
[2019-11-19] MEDS: Sertraline 50 MG Tablet PO (22:10)
[2019-11-20] VITALS (9 sets, daily range): BP systolic 107–157; BP diastolic 54–96; PULSE 51–66; RESP 16–18; TEMP 36.3–37.4; O2SAT 95–96
[2019-11-20] MEDS: Acetaminophen/Butalbital/Caffe 1 Tablet 2 TABLET PO (03:15)
[2019-11-20] MEDS: Pramipexole Di-HCl 1 MG Tablet PO ×3 (05:34→21:25)
[2019-11-20] MEDS: Levothyroxine 100 MCG Tablet 200 MCG PO (05:35)
[2019-11-20] MEDS: Carbidopa/Levodopa 25/100 Tablet PO ×4 (05:35→17:18)
[2019-11-20] MEDS: CARBIDOPA/LEVODOPA CR 50/200 Tablet PO (05:35)
[2019-11-20] MEDS: Aspirin E.C. 81 MG Tablet PO (08:53)
[2019-11-20] MEDS: Dorzolamide HCL/Timolol 10 ml Bottle 1 DRP OPHTHALMIC ×2 (08:54→21:25)
[2019-11-20] MEDS: Tolterodine Tartrate 4 MG CAP.SA PO (08:54)
[2019-11-20] MEDS: Tamsulosin HCl 0.4 MG Capsule PO ×2 (08:54→17:18)
[2019-11-20] MEDS: Heparin Injection (Vial) 5,000 UNIT/ML VIAL 5000 UNIT SC ×2 (08:55→21:24)
--- NOTE | 2019-11-20 09:08 | NURSING ---
Another bottle home rhopressa eye drops brought in by patient . Sent to pharmacy at this time.
--- NOTE | 2019-11-20 11:27 | PN_ITS ---
Patient Problems: Active and Suspected Problems Hypertensive urgency (Acute) Subjective: XIAO is much better today although not completely resolved. States that he was taking APAP at home 2 tabs q 8 hrs for it but it wasn't helping. States that his neurologist abruptly d/c his Mirapex recently. Pt states that his has felt anxious, had internal tremor, and agitation since the d/c of the Mirapex in addition to his worsened XIAO. Denies any other issues other than dry eyes. Appetite is good. Vitals/I&O's: Vital Signs Temp Pulse Resp BP Pulse Ox 98.3 F 65 16 107/54 L 95 11/20/19 08:52 11/20/19 11:03 11/20/19 08:52 11/20/19 08:52 11/20/19 08:52 Oxygen Flow Rate (L/min) 2 Oxygen Delivery Method Room Air Weight: 126.7 kg Body Mass Index (BMI) 36.8 Intake and Output for Last 24 Hours 11/18/19 11/19/19 11/20/19 23:59 23:59 23:59 Intake Total 1608.33 / 1608.33 360 / 360 Balance 1608.33 / 1608.33 360 / 360 General: Alert, Oriented x3, Cooperative, No apparent distress, Well developed, Well nourished, - - at bedside, sitting up in chair watching TV HEENT: Atraumatic, PERRLA, EOMI, Normocephalic, EAC Clear Oral: Moist Mucosa, No Gingival or Mucosal Lesions/ Ulcerations, - - no thrush Neck: Supple Lungs: Clear to auscultation, Normal air movement, No rhonchi, No wheeze, No rales Cardiovascular: Regular rate, Regular Rhythm, Normal S1, Normal S2, No murmurs, No Ectopic Activity Abdomen: Bowel Sounds Present, Soft, Non Tender, Non-Distended, Obese Extremities: No clubbing, No cyanosis Skin: No rashes, No breakdown Musculoskeletal: No Tenderness to Palpation of Joints or Extremities, No Muscle Wasting Lymphatic: No Cervical, Supraclavicular, or Inguinal Adenopathy Neurological: Cranial nerves II-XII grossly intact, Deep Tendon Reflexes 2+/4 and Symmetrical, Neuro grossly intact, - - no current rigidity Current Medications Acetaminophen/Butalbital/Caffeine (Fioricet) 2 tablet PO Q4H PRN PRN PRN Reason: HEADACHE Last Admin: 11/20/19 03:15 Dose: 2 tablet Documented by: Aspirin (Ecotrin) 81 mg PO DAILY@0800 [facility] Last Admin: 11/20/19 08:53 Dose: 81 mg Documented by: Carbidopa/Levodopa (Sinemet Cr) 1 tablet PO 0600 [facility] Last Admin: 11/20/19 05:35 Dose: 1 tablet Documented by: Carbidopa/Levodopa (Sinemet) 2 tablet PO 0600,1000,1400,1800 [facility] Last Admin: 11/20/19 08:55 Dose: 2 tablet Documented by: Dorzolamide/Timolol (Cosopt Opth Drops) 1 drop OPHTHALMIC BID [facility] Last Admin: 11/20/19 08:54 Dose: 1 drop Documented by: Heparin Sodium (Porcine) (Heparin Na) 5,000 unit SC Q12 [facility] Last Admin: 11/20/19 08:55 Dose: 5,000 unit Documented by: Valproic Acid 500 mg/ Dextrose 55 mls @ 50 mls/hr IV Q8 [facility] Last Infusion: 11/20/19 06:41 Dose: Infused Documented by: Latanoprost (Xalatan Opthalmic) 1 drop EACH EYE QHS [facility] Last Admin: 11/19/19 22:09 Dose: 1 drop Documented by: Levothyroxine Sodium (Synthroid) 200 mcg PO DAILY@0600 [facility] Last Admin: 11/20/19 05:35 Dose: 200 mcg Documented by: Oxycodone HCl (Oxyir) 5 - 10 mg PO Q4H PRN PRN PRN Reason: Pain Score 1-10/10 Last Admin: 11/19/19 12:33 Dose: 10 mg Documented by: Pramipexole Dihydrochloride (Mirapex) 1 mg PO TID [facility] Last Admin: 11/20/19 05:34 Dose: 1 mg Documented by: Sertraline HCl (Zoloft) 50 mg PO QHS [facility] Last Admin: 11/19/19 22:10 Dose: 50 mg Documented by: Sodium Chloride () 10 - 40 ml IV UD PRN PRN Reason: SALINE FLUSH Last Admin: 11/19/19 22:16 Dose: 10 ml Documented by: Tamsulosin HCl (Flomax) 0.4 mg PO BID@0830,1730 [facility] Last Admin: 11/20/19 08:54 Dose: 0.4 mg Documented by: Tolterodine Tartrate (Detrol La) 4 mg PO DAILY [facility] Last Admin: 11/20/19 08:54 Dose: 4 mg Documented by: STROKE Vital Signs/Narrative: Vital Signs Temp Pulse Resp BP Pulse Ox 11/20/19 11:03 65 11/20/19 08:52 98.3 F 61 16 107/54 L 95 Medical Necessity - Tobacco Use Smoking Status: Never smoker Assessment/Plan All Active Problems Hypertensive urgency (Acute) Severe XIAO -much improved but not resolved BP has normalized -? related to Mirapex withdrawal -d/c Depakote and monitor -if remains improved will d/c tomorrow HTN Urgency -suspect related to XIAO and anxiety/Agitation -no meds required -trend BP -resolved Anxiety/Internal Tremor/Agitation -Seems to correlate with discontinuation of Mirapex -all sx can be associate with dopamine agonist withdrawal -Mirapex restarted yesterday and sx are better -continue Mirapex and would recommend weaning if need to d/c Parkinson's Disease -was dx 4 yrs ago -has had increasing doses of Sinemet-->continue home meds -Mirapex was discontinued abruptly -restarted -pt asking for referral to another Neurologist -checking with [facility] -was unable to go to [place] 2/2 insurance ([employer]) Glaucoma -continue home meds -saline eye ggts added Hypothyroidism -continue home meds SAUL -continue home CPAP GERD -continue home meds BPH -continue Flomax Depression -continue zoloft Code Visit Inpatient E&M: 03274 Subs Hosp L2
[2019-11-20] MEDS: Glycerin/Hypromellose/PEG400 15 ml Bottle 2 DRP EACH EYE (17:18)
[2019-11-20] MEDS: Latanoprost 0.005% 1 Bottle 1 DRP EACH EYE (21:26)
[2019-11-20] MEDS: Sertraline 50 MG Tablet PO (21:27)
[2019-11-21] VITALS: PULSE 47
[2019-11-21] MEDS: oxyCODONE 5 MG Tablet PO ×2 (01:32→07:36)
[2019-11-21 02:36] VITALS: BP 129/74; PULSE 57; RESP 18; TEMP 37.4; O2SAT 94
[2019-11-21 04:00] VITALS: PULSE 53
[2019-11-21] MEDS: Levothyroxine 100 MCG Tablet 200 MCG PO (05:00)
[2019-11-21] MEDS: Carbidopa/Levodopa 25/100 Tablet PO ×2 (05:00→09:24)
[2019-11-21] MEDS: Pramipexole Di-HCl 1 MG Tablet PO (05:01)
[2019-11-21] MEDS: CARBIDOPA/LEVODOPA CR 50/200 Tablet PO (05:01)
[2019-11-21 06:55] VITALS: PULSE 53
[2019-11-21 07:23] VITALS: BP 139/80; PULSE 59; RESP 16; TEMP 37.1; O2SAT 96
[2019-11-21] MEDS: Glycerin/Hypromellose/PEG400 15 ml Bottle 2 DRP EACH EYE (07:25)
[2019-11-21] MEDS: Tamsulosin HCl 0.4 MG Capsule PO (07:36)
[2019-11-21] MEDS: Aspirin E.C. 81 MG Tablet PO (07:36)
--- NOTE | 2019-11-21 08:26 | PCM.DC.SUM ---
Discharge Date and Diagnosis - Problem List Patient Problems: Active and Suspected Problems Hypertensive urgency (Acute) Date of Admission: 11/19/19 Date of Discharge: 11/21/19 - Primary Discharge Diagnosis Active and Suspected Problems Hypertensive urgency (Acute) - Secondary Discharge Diagnosis Chronic Problems Parkinsons (Chronic) BPH (benign prostatic hyperplasia) (Chronic) GERD (gastroesophageal reflux disease) (Chronic) Glaucoma (Chronic) Hypothyroidism (Chronic) SAUL (obstructive sleep apnea) (Chronic) Hospital Course and Treatment Imaging Results: CT Head-negative for acute findings MRI-No acute findings Operations: None Procedures: None Summary of Care Provided: Mr Antunez is a 69 year old M who presented to the ED on 11/19/19 with intractable XAIO that had been progressively worsening over the 2-3 weeks prior to admission. He was also found to have markedly elevated BP at that time as well without known h/o HTN. He was treated with Steroids and IV Depakote and admitted to the hospital. He stated that since he was taken off of his Mirapex he has had worsening XIAO, internal tremor, panic attacks and anxiety. He also noticed that his XIAO were worsened when his Sinemet wears off. In addition to the Depakote his Mirapex was reinitiated. His XIAO improved but did not resolve with this and his anxiety was better and internal tremulous feeling abated but he still was having some panic attacks. He was started on Zoloft as outpt for his anxiety but had not started this yet. Depakote was discontinued on 11/20 and he was stable regarding his XIAO and although he still had a XIAO it was much better than he was on admission. It is suspected that his sx are related to dopamine agonist withdrawal. Upon d/c he was instructed to restart his Mirapex and hold off on the Zoloft for about 1.5 weeks and not start if anxiety was better but to start it if it was not improved. He was also given Ativan 1 mg tab BID PRN for panic attacks to help until the full effect of the Mirapex was back in system. He is to F/U with his PCP in 1-2 weeks (has appt on Friday) and was given names of new neurologists as he is currently dissatisfied with his current one. Patient Problems: Active and Suspected Problems Hypertensive urgency (Acute) - Physical Exam Vitals/I&O's: Vital Signs Temp Pulse Resp BP Pulse Ox 98.8 F 59 L 16 139/80 H 96 11/21/19 07:23 11/21/19 07:23 11/21/19 07:23 11/21/19 07:23 11/21/19 07:23 Oxygen Flow Rate (L/min) 2 Oxygen Delivery Method Room Air Weight: 126.7 kg Body Mass Index (BMI) 36.8 Intake and Output for Last 24 Hours 11/19/19 11/20/19 11/21/19 23:59 23:59 23:59 Intake Total 1608.33 / 1608.33 960 / 1200 240 / 240 Output Total 300 / 300 Balance 1608.33 / 1608.33 960 / 1200 -60 / -60 General: Alert, Oriented x3, Cooperative, No apparent distress, Well developed, Well nourished, - - at bedside, sitting up in a chair, appears comfortable HEENT: Atraumatic, PERRLA, EOMI, Normocephalic, EAC Clear Oral: Moist Mucosa, No Gingival or Mucosal Lesions/ Ulcerations, - - mallampati 3 Neck: Supple, No JVD, Negative Carotid Bruits, Negative Hepatojugular Reflux, No Nodes, No Nuchal Rigidity, Trachea Midline, Thyroid Normal Size and Texture Lungs: Clear to auscultation, Normal air movement, No rhonchi, No wheeze, No rales Cardiovascular: Regular rate, Regular Rhythm, Normal S1, Normal S2, No murmurs, No Ectopic Activity Abdomen: Bowel Sounds Present, Soft, Non Tender, Non-Distended, No Hepato-splenomegaly, Obese, No hernias noted Extremities: No clubbing, No cyanosis, No edema, Peripheral Pulses Normal Skin: No rashes, No breakdown Musculoskeletal: No Tenderness to Palpation of Joints or Extremities, No Muscle Wasting Lymphatic: No Cervical, Supraclavicular, or Inguinal Adenopathy Neurological: Cranial nerves II-XII grossly intact, Deep Tendon Reflexes 2+/4 and Symmetrical, Neuro grossly intact, Motor Exam 5/5 strength throughout, - - mild rigidity, mild masked facies Psych/Mental Status: Appropriate, Alert and oriented to time, place, person, mood and affect Current Medications Aspirin (Ecotrin) 81 mg PO DAILY@0800 [facility] Last Admin: 11/21/19 07:36 Dose: 81 mg Documented by: Carbidopa/Levodopa (Sinemet Cr) 1 tablet PO 0600 [facility] Last Admin: 11/21/19 05:01 Dose: 1 tablet Documented by: Carbidopa/Levodopa (Sinemet) 2 tablet PO 0600,1000,1400,1800 [facility] Last Admin: 11/21/19 05:00 Dose: 2 tablet Documented by: Dorzolamide/Timolol (Cosopt Opth Drops) 1 drop OPHTHALMIC BID [facility] Last Admin: 11/20/19 21:25 Dose: 1 drop Documented by: Heparin Sodium (Porcine) (Heparin Na) 5,000 unit SC Q12 [facility] Last Admin: 11/20/19 21:24 Dose: 5,000 unit Documented by: Latanoprost (Xalatan Opthalmic) 1 drop EACH EYE QHS [facility] Last Admin: 11/20/19 21:26 Dose: 1 drop Documented by: Levothyroxine Sodium (Synthroid) 200 mcg PO DAILY@0600 [facility] Last Admin: 11/21/19 05:00 Dose: 200 mcg Documented by: Oxycodone HCl (Oxyir) 5 - 10 mg PO Q4H PRN PRN PRN Reason: Pain Score 1-10/10 Last Admin: 11/21/19 07:36 Dose: 5 mg Documented by: Pramipexole Dihydrochloride (Mirapex) 1 mg PO TID [facility] Last Admin: 11/21/19 05:01 Dose: 1 mg Documented by: Sertraline HCl (Zoloft) 50 mg PO QHS [facility] Last Admin: 11/20/19 21:27 Dose: 50 mg Documented by: Sodium Chloride () 10 - 40 ml IV UD PRN PRN Reason: SALINE FLUSH Last Admin: 11/19/19 22:16 Dose: 10 ml Documented by: Tamsulosin HCl (Flomax) 0.4 mg PO BID@0830,1730 [facility] Last Admin: 11/21/19 07:36 Dose: 0.4 mg Documented by: Tolterodine Tartrate (Detrol La) 4 mg PO DAILY [facility] Last Admin: 11/20/19 08:54 Dose: 4 mg Documented by: Discharge Diet: No Restrictions Discharge Activity: Return to Normal Activity Return to work on:: 11/22/19 May resume sexual activity in: No Restrictions Call your doctor if you observe: Dizziness, Fainting spells Home Medications: Medications to take at Discharge Aspirin E.C. [Ecotrin] 81 mg PO DAILY@0800 06/26/17 Bimatoprost [Lumigan Opthalmic] 1 drop EACH EYE QHS 06/26/17 Dorzolamide HCL/Timolol [Cosopt Opth Drops] 1 drop OPHTHALMIC BID 06/26/17 Levothyroxine Sodium [Synthroid] 200 mcg PO DAILY 06/26/17 Tamsulosin HCl [Flomax] 0.4 mg PO BID 06/26/17 Carbidopa/Levodopa 50/200 [Sinemet CR 50/200] 1 tab PO DAILY 11/19/19 Carbidopa/Levodopa [Carbidopa-Levo 25-100 mg Odt] 50 mg PO 4X/DAY 11/19/19 Multivitamin [Daily Multiple Vitamin] 1 ea PO DAILY 11/19/19 Netarsudil Mesylate [Rhopressa] 1 drp OTIC (EAR) DAILY 11/19/19 Tolterodine Tartrate [Detrol LA] 4 mg PO DAILY 11/19/19 Lorazepam [Ativan] 1 mg PO BID PRN #14 tablet 11/21/19 Pramipexole Di-HCl [Mirapex] 1 mg PO TID tab 11/21/19 Primary Care Physician: Zana Vásquez MD [Primary Care Provider] - Please follow up with your Primary Care Physician in: 1-2 weeks Please Follow Up With: Zana Vásquez MD Medical Necessity - Tobacco Use Smoking Status: Never smoker Tobacco Use: Non-smoker Meaningful Use Info Meaningful Use Diagnoses (Choose all that apply): None applicable Code Visit Inpatient E&M: 36041 Disch Hosp
--- NOTE | 2019-11-21 08:58 | PCM.DC ---
- Discharge Diagnoses Current Active Problems: Current Active and Chronic Problems Parkinsons (Chronic) BPH (benign prostatic hyperplasia) (Chronic) GERD (gastroesophageal reflux disease) (Chronic) Hypertensive urgency (Acute) You will use the following diet at home:: No restrictions Your food should be the consistency of: Regular Discharge Activity: Return to Normal Activity Return to work on:: 11/22/19 May resume sexual activity in: No Restrictions Call your doctor if you observe: Dizziness, Fainting spells Allergies/Adverse Reactions: Allergies varicella virus vaccine live [From Varivax (PF)] Allergy (Verified 11/19/19 01:57) Swelling swelling Medications to take at Discharge Aspirin E.C. [Ecotrin] 81 mg PO DAILY@0800 06/26/17 Bimatoprost [Lumigan Opthalmic] 1 drop EACH EYE QHS 06/26/17 Dorzolamide HCL/Timolol [Cosopt Opth Drops] 1 drop OPHTHALMIC BID 06/26/17 Levothyroxine Sodium [Synthroid] 200 mcg PO DAILY 06/26/17 Tamsulosin HCl [Flomax] 0.4 mg PO BID 06/26/17 Carbidopa/Levodopa 50/200 [Sinemet CR 50/200] 1 tab PO DAILY 11/19/19 Carbidopa/Levodopa [Carbidopa-Levo 25-100 mg Odt] 50 mg PO 4X/DAY 11/19/19 Multivitamin [Daily Multiple Vitamin] 1 ea PO DAILY 11/19/19 Netarsudil Mesylate [Rhopressa] 1 drp OTIC (EAR) DAILY 11/19/19 Tolterodine Tartrate [Detrol LA] 4 mg PO DAILY 11/19/19 Lorazepam [Ativan] 1 mg PO BID PRN #14 tablet 11/21/19 Pramipexole Di-HCl [Mirapex] 1 mg PO TID tab 11/21/19 The following prescriptions were given: Lorazepam [Ativan] 1 mg PO BID PRN #14 tablet PRN Reason: Anxiety Transmission Status: Received by [facility]/pharmacy #[id number] Primary Care Physician: Zana Vásquez MD [Primary Care Provider] - Please follow up with your Primary Care Physician in: 1-2 weeks Test Results: Test results from this visit will be discussed in further detail at your follow-up appointment, if applicable. Please Follow Up With: Zana Vásquez MD
[2019-11-21 09:18] VITALS: BP 123/59; PULSE 60; RESP 14; TEMP 36.9; O2SAT 95
[2019-11-21] MEDS: Tolterodine Tartrate 4 MG CAP.SA PO (09:24)
[2019-11-21] MEDS: Heparin Injection (Vial) 5,000 UNIT/ML VIAL 5000 UNIT SC (09:24)
[2019-11-21] MEDS: Dorzolamide HCL/Timolol 10 ml Bottle 1 DRP OPHTHALMIC (09:25)
== END 2019-11-21 11:03 | disposition home or self-care (01) | DRG 305 ==
LOC: ED 06:38 → PCU 08:03
PROVIDERS: Admitting Provider Internal Medicine; Emergency Provider Emergency Medicine; Family Provider Family Medicine; PCP Family Medicine; Visit Provider Internal Medicine
DX: I16.0 Hypertensive urgency (principal); R51 Headache; G20 Parkinson's disease; H40.9 Unspecified glaucoma; E03.9 Hypothyroidism, unspecified; N40.0 Benign prostatic hyperplasia without lower urinary tract symptoms; G47.33 Obstructive sleep apnea (adult) (pediatric); K21.9 Gastro-esophageal reflux disease without esophagitis
CPT/HCPCS: 70450; 70553; 80048; 85025; 93005; 97110; 97116; 97162; 97166; 97530; 97535; 99284; A9575; J7030; J7050; A4216

== ENCOUNTER → 2020-01-25 16:37 | Outpatient (CLI) | payer OTHER, SELFPAY ==
[2019-11-23 06:26] VITALS: BMI 35.6
== END ==
PROVIDERS: PCP Family Medicine; Referring Provider Urology; Visit Provider Urology
DX: N40.1 Benign prostatic hyperplasia with lower urinary tract symptoms (principal)
CPT/HCPCS: 36415; 84153

== ENCOUNTER → 2020-02-22 14:48 | Outpatient (CLI) | payer OTHER, SELFPAY ==
[2019-11-23 06:26] VITALS: BMI 35.6
[2020-02-22 17:30] LABS: Absolute Lymphocyte Count 1.78 X10^3/uL (0.83-4.51); Absolute Neutrophil Count 4.6 X10^3/uL (2.0-7.7); Basophil# 0.06 X10^3/uL; Basophil% 0.8 % (0-1); Eosinophil# 0.11 X10^3/uL; Eosinophils% 1.6 % (0-5); Hematocrit 45.6 % (40-54); Hemoglobin 14.1 g/dL (13.0-16.5); Lymphocyte # 1.78 X10^3/ul (4.0); Lymphocyte % 25.2 % (19-41); Mean Corp Hgb Conc 30.9 g/dL (32-36); Mean Corpuscular Hgb 29.8 pg (27.0-32.0); Mean Corpuscular Volume 96.4 fL (80-94); Monocyte# 0.51 X10^3/uL; Monocyte% 7.2 % (0-10); NRBC Flagged by Analyzer 0 % (0-5); Neutrophil # 4.59 X10^3/uL (2.7-7.7); Neutrophil % 65.1 % (47-70); Platelet Count 256 K/mm3 (150-450); RBC Distribution Width SD 50.1 fl (35.1-43.9); Red Blood Count 4.73 M/mm3 (4.6-6.2); White Blood Count 7.1 K/mm3 (4.4-11.0)
[2020-02-22 17:51] LABS: ALB/GLOB Ratio 1.1 RATIO (0.9-2.4); AST(SGOT) 29 U/L (15-37); Alanine Aminotransfer ALT/SGPT 18 U/L (16-61); Albumin, Serum 3.8 g/dL (3.2-5.0); Alkaline Phosphatase 66 U/L (45-117); Anion Gap 6 (5-15); BUN 14 mg/dL (7-18); BUN/Creat Ratio 15.3 RATIO (10-20); Calcium,Total 8.8 mg/dL (8.5-10.1); Chloride 108 mmol/L (98-107); Creatinine, Serum 0.92 mg/dL (0.70-1.30); EST Glomerular Filtration Rate 88 mL/min (>60); Est Glom Filt Rate - Afr Amer 106 mL/min (>60); Globulin 3.5 g/dL (2.2-4.2); Glucose 120 mg/dL (74-106); Potassium 4.2 mmol/L (3.5-5.1); Protein, Total 7.3 g/dL (6.4-8.2); Sodium Level 140 mmol/L (136-145); T4 Free Direct 1.09 ng/dL (0.76-1.46); Thyroid Stim Hormone (TSH) 0.92 uIU/mL (0.358-3.74)
[2020-02-23 11:26] LABS: Hemoglobin A1c 5.5 % (4.2-6.3)
== END ==
PROVIDERS: PCP Family Medicine; Referring Provider Family Medicine; Visit Provider Family Medicine
DX: I10 Essential (primary) hypertension (principal); E03.9 Hypothyroidism, unspecified; R73.09 Other abnormal glucose
CPT/HCPCS: 36415; 80053; 83036; 84439; 84443; 85025

== ENCOUNTER → 2020-06-29 07:46 | Outpatient (CLI) | payer OTHER, SELFPAY ==
[2019-11-23 06:26] VITALS: BMI 35.6
--- NOTE | 2020-06-29 07:52 | US_ITS ---
STUDY: SCROTUM ULTRASOUND REASON FOR EXAM: Male, 70 years old. SWELLING PALPABLE LT MASS TECHNIQUE: Ultrasound evaluation of the scrotum was performed with color Doppler and static harris-scale imaging. COMPARISON: None. FINDINGS: RIGHT TESTICLE INTRATESTICULAR: There is a normal size of the right testicle. The right testicle measures 4.9 cm x 4 cm x 3.1 cm. There is a homogenous echotexture. There is normal arterial and normal venous vascularity. There is no demonstrated right testicular mass or cyst. EXTRATESTICULAR: The epididymis is normal in size. The epididymis head measures 1.1 cm x 1.0 cm x 0.6 cm. There is normal vascularity of the epididymis. There is no demonstrated epididymal cystic structure. There is a large hydrocele. There is no demonstrated varicocele. There is no demonstrated extratesticular mass or cyst. LEFT TESTICLE INTRATESTICULAR: There is a normal size of the left testicle. The left testicle measures 4.2 cm x 4.1 cm x 2.1 cm. There is a homogenous echotexture. There is normal arterial and normal venous vascularity. There is no demonstrated left testicular mass or cyst. EXTRATESTICULAR: The epididymis is normal in size. The epididymis head measures 1 cm x 0.7 cm x 0.7 cm. There is normal vascularity of the epididymis. There is no demonstrated epididymal cystic structure. There is a moderate size hydrocele. There are prominent extratesticular veins consistent with a varicocele. There is no demonstrated extratesticular mass or cyst. US/Testicular with Arterial Flow IMPRESSION: Bilateral hydroceles right greater than left. Left varicocele which correlates with the palpable abnormality. Electronically Signed: Og Esquivel, at 10:06 EDT , Service support ,
== END ==
PROVIDERS: PCP Family Medicine; Referring Provider Family Medicine; Visit Provider Family Medicine
DX: N50.89 Other specified disorders of the male genital organs (principal)
CPT/HCPCS: 76870; 93976

== ENCOUNTER → 2020-08-31 06:57 | Outpatient (CLI) | payer OTHER, SELFPAY ==
[2020-08-10 05:50] VITALS: BMI 37.4
--- NOTE | 2020-08-31 15:50 | PFTCOMP ---
COMPLETE PULMONARY FUNCTION TEST INTERPRETATION Brief HPI: Patient is a 70 year old male, currently under the care of myself, who presents to [facility] for complete pulmonary function tests secondary to diagnosis of wheezing. Respiratory therapist reports good effort and reproducible results. Interpretation: Forced expiration spirometry shows a moderately severe large airways obstructive ventilatory defect with an FEV1 of 59% predicted. There is no significant bronchodilator response by strict ATS criteria. Spirograms are of good quality and plateau slowly, indicating slowly emptying areas of the lungs. The respiratory flow volume loop shows decreased expiratory flow rates at all lung volumes consistent with airway obstruction. Lung volumes by body plethysmography show a decreased total lung capacity at 5.6 L, 77% predicted. All other lung volumes are reduced symmetrically. Diffusion capacity by carbon monoxide is normal at 100% predicted. The airway resistance is elevated. No previous pulmonary function tests were available for review. Impression: Irreversible moderately severe mixed ventilatory defect with preserved diffusion capacity. There was some improvement with bronchodilators, but this did not reach significance by strict ATS criteria.
== END ==
PROVIDERS: PCP Family Medicine; Referring Provider Internal Medicine Critical Care Medicine; Visit Provider Internal Medicine Critical Care Medicine
DX: R06.2 Wheezing (principal)
CPT/HCPCS: 94060; 94726; 94729

== ENCOUNTER → 2020-10-07 07:30 | Outpatient (CLI) | payer OTHER, SELFPAY ==
[2020-08-10 05:50] VITALS: BMI 37.4
[2020-10-07 07:35] LABS: Mucous, Urine 0 SEEN /hpf (<or=2+); Red Blood Cells-Urine 0 SEEN /hpf (0-5); Squamous Epithelial Cells - UA 0 SEEN /hpf (0-5); White Blood Cells 0 SEEN /hpf (0-5)
[2020-10-07 08:48] LABS: Absolute Lymphocyte Count 1.43 X10^3/uL (0.83-4.51); Basophil# 0.03 X10^3/uL; Basophil% 0.6 % (0-1); Eosinophil# 0.08 X10^3/uL; Eosinophils% 1.6 % (0-5); Hematocrit 43.9 % (40-54); Hemoglobin 13.7 g/dL (13.0-16.5); Lymphocyte # 1.43 X10^3/ul (4.0); Lymphocyte % 28.7 % (19-41); Mean Corp Hgb Conc 31.2 g/dL (32-36); Mean Corpuscular Hgb 30.4 pg (27.0-32.0); Mean Corpuscular Volume 97.3 fL (80-94); Mean Platelet Vol. 9.6 fl (6.2-12.0); Monocyte# 0.42 X10^3/uL; Monocyte% 8.4 % (0-10); NRBC Flagged by Analyzer 0 % (0-5); Neutrophil # 3.01 X10^3/uL (2.7-7.7); Neutrophil % 60.3 % (47-70); Platelet Count 255 K/mm3 (150-450); RBC Distribution Width CV 13.9 % (11.6-14.6); RBC Distribution Width SD 49.9 fl (35.1-43.9); Red Blood Count 4.51 M/mm3 (4.6-6.2)
[2020-10-07 09:10] LABS: ALB/GLOB Ratio 0.9 RATIO (0.9-2.4); AST(SGOT) 20 U/L (15-37); Alanine Aminotransfer ALT/SGPT 12 U/L (16-61); Albumin, Serum 3.6 g/dL (3.2-5.0); Alkaline Phosphatase 68 U/L (45-117); Anion Gap 4 (5-15); BUN 18 mg/dL (7-18); BUN/Creat Ratio 20.4 RATIO (10-20); Calcium,Total 8.5 mg/dL (8.5-10.1); Chloride 108 mmol/L (98-107); Cholesterol 147 mg/dL (200); Creatinine, Serum 0.88 mg/dL (0.70-1.30); EST Glomerular Filtration Rate 91 mL/min (>60); Est Glom Filt Rate - Afr Amer 110 mL/min (>60); Globulin 3.8 g/dL (2.2-4.2); Glucose 89 mg/dL (74-106); High Density Lipoprotein 45 mg/dL; Potassium 4.1 mmol/L (3.5-5.1); Protein, Total 7.4 g/dL (6.4-8.2); Sodium Level 141 mmol/L (136-145); Thyroid Stim Hormone (TSH) 0.94 uIU/mL (0.358-3.74); Triglycerides 112 mg/dL; Very Low Density Lipoprotein 22 mg/dL (5-40)
[2020-10-07 09:12] LABS: Color, Urine Yellow (Yellow); Glucose, Dipstick Normal (Normal); Ketone-Dipstick 5 mg/dl (Negative); Leukocyte Esterase-Dipstick Negative /ul (Negative); Nitrite-Dipstick Negative (Negative); Occult Blood-Urine Negative /ul (Negative); Protein-Dipstick Negative (Negative); Urine Bilirubin Dipstick Negative (Negative); Urine Clarity Clear (Clear); Urine Urobilinogen Normal (Normal)
[2020-10-07 09:25] LABS: Bacteria RARE /hpf (None Seen)
== END ==
PROVIDERS: PCP Family Medicine; Visit Provider Family Medicine
DX: I10 Essential (primary) hypertension (principal); E03.9 Hypothyroidism, unspecified
CPT/HCPCS: 36415; 80053; 80061; 81001; 84439; 84443; 85025

== ENCOUNTER → 2020-11-14 15:50 | Outpatient (CLI) | payer OTHER, SELFPAY ==
[2020-08-10 05:50] VITALS: BMI 37.4
[2020-11-14 16:33] LABS: Anion Gap 3 (5-15); BUN 21 mg/dL (7-18); BUN/Creat Ratio 22.2 RATIO (10-20); Calcium,Total 8.6 mg/dL (8.5-10.1); Chloride 105 mmol/L (98-107); Creatinine, Serum 0.94 mg/dL (0.70-1.30); EST Glomerular Filtration Rate 84 mL/min (>60); Est Glom Filt Rate - Afr Amer 102 mL/min (>60); Glucose 121 mg/dL (74-106); Sodium Level 138 mmol/L (136-145)
== END ==
PROVIDERS: PCP Family Medicine; Visit Provider Nurse Practitioner Adult Health
DX: I10 Essential (primary) hypertension (principal)
CPT/HCPCS: 36415; 80048

== ENCOUNTER → 2021-02-08 16:06 | Outpatient (CLI) | payer OTHER, SELFPAY ==
[2020-11-22 07:48] VITALS: BMI 37.4
[2021-02-08 17:27] LABS: Absolute Lymphocyte Count 1.95 X10^3/uL (0.83-4.51); Absolute Neutrophil Count 6.4 X10^3/uL (2.0-7.7); Basophil# 0.06 X10^3/uL; Basophil% 0.7 % (0-1); Eosinophil# 0.12 X10^3/uL; Eosinophils% 1.3 % (0-5); Hematocrit 44.1 % (40-54); Hemoglobin 14.1 g/dL (13.0-16.5); Lymphocyte # 1.95 X10^3/ul (4.0); Lymphocyte % 21.4 % (19-41); Mean Corpuscular Hgb 31.2 pg (27.0-32.0); Mean Corpuscular Volume 97.6 fL (80-94); Mean Platelet Vol. 9.5 fl (6.2-12.0); Monocyte# 0.59 X10^3/uL; Monocyte% 6.5 % (0-10); NRBC Flagged by Analyzer 0 % (0-5); Neutrophil # 6.39 X10^3/uL (2.7-7.7); Neutrophil % 69.9 % (47-70); Platelet Count 317 K/mm3 (150-450); RBC Distribution Width CV 13.5 % (11.6-14.6); RBC Distribution Width SD 48.6 fl (35.1-43.9); Red Blood Count 4.52 M/mm3 (4.6-6.2); White Blood Count 9.1 K/mm3 (4.4-11.0)
[2021-02-08 18:05] LABS: ALB/GLOB Ratio 1.1 RATIO (0.9-2.4); AST(SGOT) 21 U/L (15-37); Alanine Aminotransfer ALT/SGPT 13 U/L (16-61); Albumin, Serum 4.1 g/dL (3.2-5.0); Alkaline Phosphatase 62 U/L (45-117); Anion Gap 6 (5-15); BUN 23 mg/dL (7-18); BUN/Creat Ratio 22.8 RATIO (10-20); Calcium,Total 9.2 mg/dL (8.5-10.1); Chloride 104 mmol/L (98-107); Creatinine, Serum 1.01 mg/dL (0.70-1.30); EST Glomerular Filtration Rate 78 mL/min (>60); Est Glom Filt Rate - Afr Amer 94 mL/min (>60); Globulin 3.8 g/dL (2.2-4.2); Glucose 87 mg/dL (74-106); Potassium 4.2 mmol/L (3.5-5.1); Protein, Total 7.9 g/dL (6.4-8.2); Sodium Level 137 mmol/L (136-145); T4 Free Direct 1.33 ng/dL (0.76-1.46); Thyroid Stim Hormone (TSH) 1.02 uIU/mL (0.358-3.74)
== END ==
PROVIDERS: PCP Family Medicine; Referring Provider Family Medicine; Visit Provider Family Medicine
DX: I10 Essential (primary) hypertension (principal); E03.9 Hypothyroidism, unspecified
CPT/HCPCS: 36415; 80053; 84439; 84443; 85025

== ENCOUNTER → 2021-03-08 13:00 | Outpatient (CLI) | payer OTHER, SELFPAY ==
[2021-03-02 11:18] VITALS: BMI 37.3
== END ==
PROVIDERS: PCP Family Medicine; Referring Provider Internal Medicine Critical Care Medicine; Visit Provider Internal Medicine Critical Care Medicine
DX: G47.33 Obstructive sleep apnea (adult) (pediatric) (principal)
CPT/HCPCS: 98960; G0463

== ENCOUNTER 2021-06-06 12:00 | Outpatient (RCR) | payer OTHER, SELFPAY ==
[2021-03-02 11:18] VITALS: BMI 37.3
--- NOTE | 2021-04-18 18:03 | HP.PTEVAL ---
Patient's Visit Information JERED ESCOBAR is a 70 year old M referred to Physical Therapy by Dr. Mel Aguero DPM with a diagnosis of PD and unstable gait. Date of Evaluation: 04/18/21 Physical Therapist: ELISSA German - Visit Plan Frequency: 1x/Week Duration: 6 Weeks Plan: 1X/ week for dual tasking, balance with compliant surfaces and without and EO/EC, gait mechainics, functional dynamic balance, ankle gastroc stretching and DF strengthening with detailed HEP over the next 6 weeks so he can continue at home with the help of his family. HEP; seated opp arm and leg, gastroc towel stretching, and standing heel and toe raises holding onto countertop - Subjective Pt was Dx with PD 8-9 years ago. He is on PD meds. He uses no AD. 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 He does have some episodes of freezing. This past M and T the meds did not kick in from -. But this morning the meds did kick in. He takes the meds the same time everyday. He walks everyday for 30 min. He has an elliptical bike and a TM. Pt has had no falls. He notices that he walks on the sides of his feet and he has to veer sometimes to catch his balance. He is able to do stairs 2 step pattern and uses a railing. He has no dizziness. - Objective Gait: walks with good arm swing, increase veering with gait, trouble walking with head turns, decreased ankle DF with gait and increase feet shuffle. FGA: 12. TUG 10.8 sec. CATSIB: 105. LE MMT: WFL LE strength. Pt does struggle with B ankle DF (only 1/4 normal ROM in standing). Tight B HS and gastroc complex B. Sit to stands: Able to get up without using his arms. Stairs: up and down recip with 2 hand rails. Standing stepping fw and return to feet shoulder width apart.... pt had increase LOB with this activity. Standing opp arm and leg... pt struggled with opp arm and leg and would do the same arm and leg. Sitting opp arm and leg.... pt struggled wtih this as well but not as much as with standing - Balance Scores Functional Gait Assessment Score: 12 % Disability: 60.0000 CATSIB Score (Max score 120 seconds): 105 - Goals Goal 1:: I HEP Goal Time Frame: 6-8 Weeks Goal 2:: Be able to raise toes to 1/2 normal standing ROM with UE support if needed Goal Time Frame: 6-8 Weeks Goal 3:: Increase FGA by 5 points to decrease fall risk (score was 12 at eval) Goal Time Frame: 6-8 Weeks Goal 4:: Increase ability to stand on black foam for 30 seconds with EC and with head movements without LOB Goal Time Frame: 6-8 Weeks Goal 5:: Be able to walk 75 feet without veering Goal Time Frame: 6-8 Weeks Goal 6:: Be able to perform standing opp arm and leg X 5 each leg without messing up Goal Time Frame: 6-8 Weeks - Rehabilitation Potential Rehabilitation Potential: Good - Anticipated Interventions Patient/Client Instruction: Educate patient on: Condition, Plan of Care For the Purpose of:: To increase ROM, To improve muscle performance and motor function, To improve ability to perform ADL's, To increase tolerance to activity/condition/position, To improve performance and independence with ADL's, To decrease level of supervision to perform tasks, To improve ability of physical actions for home/community/work/leisure, To improve gait and locomotor functions, To improve health of tissue, To decrease soft tissue restriction, To increase flexibility/ROM, To improve endurance, To improve balance, To improve safety with gait Therapeutic Exercise to Include: Strength training, Endurance training, Balance training, Coordination, Body mechanics, Postural training, Flexibilty training, Gait and locomotor training, Neuromotor development, Passive ROM, Active ROM For the Purpose of:: To improve muscle performance and motor function, To improve ability to perform ADL's, To increase tolerance to activity/condition/position, To improve performance and independence with ADL's, To decrease level of supervision to perform tasks, To improve ability of physical actions for home/community/work/leisure, To improve gait and locomotor functions, To improve health of tissue, To decrease soft tissue restriction, To increase flexibility/ROM, To improve endurance, To improve balance, To improve safety with gait For the Purpose of:: To improve gait and locomotor functions, To improve safety with gait Manual Therapy Techniques to Include: Passive ROM For the Purpose of:: To increase ROM Thank you for the opportunity to evaluate your patient. For Medicare and Medicare HMO plans, please review the plan of care and approve it. It will need to be FAXED BACK to us at [phone] for Medicare purposes. For Medicare only, by signing this I certify the plan of care. Please let me know if there are questions or concerns regarding this plan of care. Physician Signature: Date:
--- NOTE | 2021-06-06 13:50 | HP.PTREVAL ---
Dr. Mel Aguero, DPM, It has been my pleasure to treat JERED ESCOBAR over the last 7 visits for PD and unstable gait. Please see the progress note below for an update on the physical therapy plan of care! Subjective: Pt reports that this is the last one scheduled. Pt feels that he sees improvement and is more aware of trying to move his head and keep his toes up. He reports that his balance has been good and has not had any falls. He feels that his multi-tasking exercises are good most of the time unless his head is not functioning properly.... and once he gets going it goes smoother. Objective/Function: Standing opp arm and leg X 10 each leg before messing up sequence and no LOB. FGA 22. Able to raise toes up 1/2 normal ROM with hand support Plan Plan: Pt has met all of his goal. See the pt one additional time in 2 weeks to review HEP and see if it needs updating or if pt has questions with HEP. HEP; seated opp arm and leg, gastroc towel stretching, and standing heel and toe raises holding onto countertop Goals Goal 1:: I HEP Goal Time Frame: 6-8 Weeks Goal Progress: Goal Met Goal 2:: Be able to raise toes to 1/2 normal standing ROM with UE support if needed Goal Time Frame: 6-8 Weeks Goal Progress: Goal Met Goal 3:: Increase FGA by 5 points to decrease fall risk (score was 12 at eval) Goal Time Frame: 6-8 Weeks Goal Progress: Goal Met Goal 4:: Increase ability to stand on black foam for 30 seconds with EC and with head movements without LOB Goal Time Frame: 6-8 Weeks Goal Progress: Goal Met Goal 5:: Be able to walk 75 feet without veering Goal Time Frame: 6-8 Weeks Goal Progress: Goal Met Goal 6:: Be able to perform standing opp arm and leg X 5 each leg without messing up Goal Time Frame: 6-8 Weeks Goal Progress: Goal Met Anticipated Interventions Patient/Client Instruction: Educate patient on: Condition, Plan of Care For the Purpose of:: To increase ROM, To improve muscle performance and motor function, To improve ability to perform ADL's, To increase tolerance to activity/condition/position, To improve performance and independence with ADL's, To decrease level of supervision to perform tasks, To improve ability of physical actions for home/community/work/leisure, To improve gait and locomotor functions, To improve health of tissue, To decrease soft tissue restriction, To increase flexibility/ROM, To improve endurance, To improve balance, To improve safety with gait Therapeutic Exercise to Include: Strength training, Endurance training, Balance training, Coordination, Body mechanics, Postural training, Flexibilty training, Gait and locomotor training, Neuromotor development, Passive ROM, Active ROM For the Purpose of:: To improve muscle performance and motor function, To improve ability to perform ADL's, To increase tolerance to activity/condition/position, To improve performance and independence with ADL's, To decrease level of supervision to perform tasks, To improve ability of physical actions for home/community/work/leisure, To improve gait and locomotor functions, To improve health of tissue, To decrease soft tissue restriction, To increase flexibility/ROM, To improve endurance, To improve balance, To improve safety with gait For the Purpose of:: To improve gait and locomotor functions, To improve safety with gait Manual Therapy Techniques to Include: Passive ROM For the Purpose of:: To increase ROM Please do not hesitate to contact me at [phone] by phone or if you have questions or concerns regarding this new plan of care! Sincerely, Mary Grace Flaherty MPT
--- NOTE | 2021-11-07 17:02 | HP.PTDCSUM ---
It has been my pleasure to treat JERED ESCOBAR referred by Dr. Mel Aguero, [facility], with the diagnosis of PD and unstable gait for a total of 7 visit(s). Discharge Date: 11/07/21 Please see the following information for a summary of their discharge status. Subjective: Pt reports that this is the last one scheduled. Pt feels that he sees improvement and is more aware of trying to move his head and keep his toes up. He reports that his balance has been good and has not had any falls. He feels that his multi-tasking exercises are good most of the time unless his head is not functioning properly.... and once he gets going it goes smoother. % Improvement: 50 Objective/Function: Standing opp arm and leg X 10 each leg before messing up sequence and no LOB. FGA 22. Able to raise toes up 1/2 normal ROM with hand support Goal 1:: I HEP Goal Progress: Goal Met Goal 2:: Be able to raise toes to 1/2 normal standing ROM with UE support if needed Goal Progress: Goal Met Goal 3:: Increase FGA by 5 points to decrease fall risk (score was 12 at eval) Goal Progress: Goal Met Goal 4:: Increase ability to stand on black foam for 30 seconds with EC and with head movements without LOB Goal Progress: Goal Met Goal 5:: Be able to walk 75 feet without veering Goal Progress: Goal Met Goal 6:: Be able to perform standing opp arm and leg X 5 each leg without messing up Goal Progress: Goal Met Plan: Pt has met all of his goal. See the pt one additional time in 2 weeks to review HEP and see if it needs updating or if pt has questions with HEP. HEP; seated opp arm and leg, gastroc towel stretching, and standing heel and toe raises holding onto countertop Discharge Comments: Pt did not need further PT exercises and will be discharged If there are questions or concerns regarding this patient's physical therapy, please feel free to call me at [phone]. Thank you for the referral of this patient. Sincerely, Mary Grace Flaherty, MPT Balance/Gait/Functional tests - Balance/Special Test Scores Functional Gait Assessment Score: 22 % Disability: 26.6700 CATSIB Score (Max score 120 seconds): 105 Lower Extremity Functional Score: 48
== END 2021-06-06 19:00 | disposition home or self-care (01) ==
LOC: PT 12:00
PROVIDERS: PCP Family Medicine; Visit Provider Podiatrist
DX: G20 Parkinson's disease (principal); R26.89 Other abnormalities of gait and mobility
CPT/HCPCS: 97110; 97162; 97530

== ENCOUNTER → 2021-06-28 14:38 | Outpatient (CLI) | payer OTHER, SELFPAY ==
[2021-06-08 08:12] VITALS: BMI 36.1
[2021-06-28 18:17] LABS: PSA,Total - Annual Screen 2.68 ng/mL (0.00-4.00)
== END ==
PROVIDERS: PCP Family Medicine; Referring Provider Family Medicine; Visit Provider Family Medicine
DX: Z12.5 Encounter for screening for malignant neoplasm of prostate (principal)
CPT/HCPCS: 36415; 84153; G0103

== ENCOUNTER → 2021-09-22 07:11 | Outpatient (CLI) | payer OTHER, SELFPAY ==
[2021-09-22 07:26] LABS: Bacteria 0 SEEN /hpf (None Seen); Mucous, Urine 0 SEEN /hpf (<or=2+); Red Blood Cells-Urine 0 SEEN /hpf (0-5); Squamous Epithelial Cells - UA 0 SEEN /hpf (0-5)
[2021-09-22 07:46] LABS: Absolute Lymphocyte Count 1.93 X10^3/uL (0.83-4.51); Absolute Neutrophil Count 4.8 X10^3/uL (2.0-7.7); Basophil# 0.04 X10^3/uL; Basophil% 0.5 % (0-1); Eosinophil# 0.11 X10^3/uL; Eosinophils% 1.5 % (0-5); Hematocrit 40.1 % (40-54); Hemoglobin 12.9 g/dL (13.0-16.5); Lymphocyte # 1.93 X10^3/ul (0.83-4.51); Lymphocyte % 25.8 % (19-41); Mean Corp Hgb Conc 32.2 g/dL (32-36); Mean Corpuscular Hgb 31.4 pg (27.0-32.0); Mean Corpuscular Volume 97.6 fL (80-94); Mean Platelet Vol. 9.2 fl (6.2-12.0); Monocyte# 0.61 X10^3/uL; Monocyte% 8.2 % (0-10); NRBC Flagged by Analyzer 0 % (0-5); Neutrophil # 4.76 X10^3/uL (2.7-7.7); Neutrophil % 63.7 % (47-70); Platelet Count 269 K/mm3 (150-450); RBC Distribution Width CV 13.6 % (11.6-14.6); RBC Distribution Width SD 48.7 fl (35.1-43.9); Red Blood Count 4.11 M/mm3 (4.6-6.2); White Blood Count 7.5 K/mm3 (4.4-11.0)
[2021-09-22 07:57] LABS: Color, Urine Yellow (Yellow); Glucose, Dipstick Normal (Normal); Ketone-Dipstick 5 mg/dl (Negative); Leukocyte Esterase-Dipstick Negative /ul (Negative); Nitrite-Dipstick Negative (Negative); Occult Blood-Urine Negative /ul (Negative); Protein-Dipstick 15 mg/dl (Negative); Specific Gravity, Urine 1.025 (1.002-1.030); Urine Bilirubin Dipstick Negative (Negative); Urine Clarity Clear (Clear); Urine Urobilinogen Normal (Normal)
[2021-09-22 08:14] LABS: White Blood Cells 0-5 SEEN /hpf (0-5)
[2021-09-22 08:23] LABS: AST(SGOT) 17 U/L (15-37); Alanine Aminotransfer ALT/SGPT 8 U/L (16-61); Albumin, Serum 3.5 g/dL (3.2-5.0); Alkaline Phosphatase 63 U/L (45-117); Anion Gap 5 (5-15); BUN 22 mg/dL (7-18); BUN/Creat Ratio 27.2 RATIO (10-20); Calcium,Total 8.5 mg/dL (8.5-10.1); Chloride 107 mmol/L (98-107); Cholesterol 162 mg/dL (200); Creatinine, Serum 0.81 mg/dL (0.70-1.30); EST Glomerular Filtration Rate 100 mL/min (>60); Est Glom Filt Rate - Afr Amer 121 mL/min (>60); Globulin 3.6 g/dL (2.2-4.2); Glucose 97 mg/dL (74-106); High Density Lipoprotein 41 mg/dL; Potassium 3.9 mmol/L (3.5-5.1); Protein, Total 7.1 g/dL (6.4-8.2); Sodium Level 141 mmol/L (136-145); T4 Free Direct 1.28 ng/dL (0.76-1.46); Thyroid Stim Hormone (TSH) 0.54 uIU/mL (0.358-3.74); Triglycerides 102 mg/dL; Very Low Density Lipoprotein 20 mg/dL (5-40)
[2021-09-24 16:22] LABS: Ferritin 147 ng/mL (26-388); Iron 82 ug/dL (65-175); Iron Binding Capacity,Total 263 ug/dL (250-450); PERCENT IRON SATURATION 31.2 % (15.0-55.0)
== END ==
PROVIDERS: PCP Family Medicine; Referring Provider Family Medicine; Visit Provider Family Medicine
DX: I10 Essential (primary) hypertension (principal); E03.9 Hypothyroidism, unspecified; D64.9 Anemia, unspecified
CPT/HCPCS: 80053; 80061; 81001; 82728; 83540; 83550; 84439; 84443; 85025

== ENCOUNTER → 2021-10-16 16:50 | Outpatient (CLI) | payer OTHER, SELFPAY ==
--- NOTE | 2021-10-16 16:51 | RAD_ITS ---
EXAM: XR LEFT KNEE COMPLETE, 4 OR MORE VIEWS : 1950 CLINICAL INDICATION: PAIN TECHNIQUE: Four or more views of the left knee. This report was created using [employer] report generation technology. COMPARISON: None. FINDINGS: BONES/JOINTS: There is mild degenerative change with narrowing of the medial knee joint. No acute fracture. No subluxation. Normal alignment. No sclerotic or destructive changes observed. SOFT TISSUES: Unremarkable. No soft tissue swelling or gas. No radiopaque foreign body. RAD/Knee 4 or More Views IMPRESSION: Degenerative changes with narrowing of the medial knee joint. There are no acute osseous abnormalities. at 0317 Reported and signed by: Bonilla Smith MD Electronically Signed: Bonilla Smith MD at 3:16 EST Tel , Service support ,
--- NOTE | 2021-10-16 16:51 | RAD_ITS ---
STUDY: X-RAY - LEFT KNEE REASON FOR EXAM: Male, 71 years old. PAIN TECHNIQUE: 5 view(s) of the knee. COMPARISON: Right knee x-ray July 13, 2013 FINDINGS: There is demineralization of the visualized distal femur. There is demineralization of the tibia and fibula. There is arthrosis of the proximal tibiofibular articulation. There is worsening moderate degenerative arthrosis of the medial femorotibial compartment with moderate joint space narrowing. There is stable mild degenerative arthrosis of the lateral femorotibial compartment. There is moderate degenerative arthrosis of the patellofemoral articulation. There is enthesopathy at the quadriceps insertion. The soft tissue structures are unremarkable. RAD/Knee 4 or More Views IMPRESSION: Worsening arthrosis of the left knee, especially involving the medial compartment.. Electronically Signed: Pennie Stevenson MD at 3:44 EST Tel , Service support ,
== END ==
PROVIDERS: PCP Family Medicine; Referring Provider Family Medicine; Visit Provider Family Medicine
DX: M17.12 Unilateral primary osteoarthritis, left knee (principal); M25.561 Pain in right knee
CPT/HCPCS: 73564

== ENCOUNTER 2022-01-23 16:25 | Outpatient (CLI) | payer OTHER, SELFPAY ==
--- NOTE | 2022-01-23 16:39 | MRI_ITS ---
STUDY: MRI BRAIN WITH AND WITHOUT CONTRAST REASON FOR EXAM: Male, 71 years old. Visual disturbance, Parkinson''s, headache TECHNIQUE: Standardized multiplanar fat and water weighted pulse sequences were obtained. IV 23cc dotarem was administered for the contrast portion of the examination. COMPARISON: 11/19/2019 FINDINGS: There is mild cerebral volume loss with widening of the extra-axial spaces and ventricular dilatation. Normal white matter tracts of the supratentorial brain. There is no evidence for recent intracranial ischemia or other cause of cytotoxic edema on diffusion weighted imaging (DWI). Normal T2* images of the brain without demonstrated susceptibility artifact. There is no demonstrated hemosiderin stain. Normal bilateral basal ganglia. Normal thalami. There is no extra-axial fluid accumulation. Normal flow voids within the major intracranial circulation suggesting patency by spin echo criteria. Normal venous enhancement. There is no enhancing intra-axial or extra-axial abnormality. Normal sella turcica, pituitary gland, infundibular stalk, optic chiasm and hypothalamus. Normal tectal plate and pineal gland. Normal midbrain, margarita and medulla. Normal cerebellum. Normal basal cisterns. Normal bilateral temporal bones. Normal bilateral internal auditory canals. There are bilateral ocular lens implants with otherwise normal intraorbital contents. Normal visualized paranasal sinuses. Normal calvarium and skull base. Normal visualized soft tissue structures. Normal visualized upper cervical spine. MRI/Brain W/WO Contrast IMPRESSION: No acute abnormal intracranial finding. Mild cerebral volume loss. Electronically Signed: Jh Vazquez MD at 5:46 EST ,
[2022-01-23 17:06] LABS: CREATININE FINGERSTICK 0.7 mg/dL (0.70-1.30); EGFR FINGERSTICK > 60.0000 mL/min (>60)
== END 2022-01-23 23:59 | disposition home or self-care (01) ==
PROVIDERS: PCP Family Medicine; Visit Provider Family Medicine
DX: H53.9 Unspecified visual disturbance (principal); G20 Parkinson's disease; R51.9 Headache, unspecified
CPT/HCPCS: 70553; A9575

== ENCOUNTER 2022-02-11 13:54 | Emergency (ER) | payer OTHER, SELFPAY ==
[2022-02-11 13:56] VITALS: BP 179/99; PULSE 69; RESP 18; TEMP 36.9; O2SAT 98; BMI 33.7
--- NOTE | 2022-02-11 14:11 | EKG12_ITS ---
Test Reason : WEAKNESS Blood Pressure : / mmHG Vent. Rate : 074 BPM Atrial Rate : 074 BPM P-R Int : 168 ms QRS Dur : 100 ms QT Int : 408 ms P-R-T Axes : 038 -42 021 degrees QTc Int : 452 ms Normal sinus rhythm Left axis deviation Poor R wave progression Abnormal ECG Confirmed by AKSHAT WALKER, ASHLYN ([id number]), editor department JOEY MACK ([id number]) on 02/14/2022 9:47:37 AM Referred By: JEFF Confirmed By:ASHLYN ODEN MD
--- NOTE | 2022-02-11 14:12 | EDS_ITS ---
HPI History of Present Illness Chief Complaint: Weakness Informant: patient and spouse/S.O. Onset/Context/Timing Onset: Today Narrative Narrative: Patient presents via EMS secondary to generalized weakness. Patient has a history of Parkinson's. He is on medications prescribed by his neurologist in [place]. states lately they have been noticing him having jittery episodes in the evenings. He recently lost around 45 pounds and are wondering if he may be overmedicated now. This morning patient was more animated and jittery which typically only occurs at night. dropped him off at school. Patient states that after going up a flight of steps at school he was very weak and tired and sat down to rest. He did not think he had the strength to walk further and EMS was called. Patient does complain of a headache. He report he does get a headache with these episodes has been having. While in the emergency room they realized patient missed his 9 AM medications today. Patient does report some mild chest tightness. He denies shortness of breath. [facility] Medical History (Updated 02/11/22 @ 17:[address] Mary Parker MD) BPH (benign prostatic hyperplasia) Cataract fragments in both eyes following surgery GERD (gastroesophageal reflux disease) Glaucoma Hypertensive urgency Hypothyroidism SAUL (obstructive sleep apnea) Parkinsons Home Medications aspirin 81 mg PO DAILY@0800 06/26/17 [History Last Taken 11/17/19] bimatoprost 1 drp EACH EYE QHS 06/26/17 [History Last Taken 11/18/19] dorzolamide-timolol 1 drp OPHTHALMIC (EYE) BID 06/26/17 [History Last Taken 11/18/19] levothyroxine 200 mcg PO DAILY 06/26/17 [History Last Taken 11/18/19] tamsulosin 0.4 mg PO BID 06/26/17 [History Last Taken 11/18/19] carbidopa-levodopa 1 tab PO DAILY 11/19/19 [History Last Taken 11/18/19] carbidopa-levodopa 50 mg PO 4X/DAY 11/19/19 [History Last Taken 11/19/19 1] multivitamin 1 ea PO DAILY 11/19/19 [History Last Taken 11/18/19] netarsudil 1 drp OTIC (EAR) DAILY 12/20/19 [History Last Taken 11/18/19] tolterodine 4 mg PO DAILY 11/19/19 [History Last Taken Unknown] lorazepam 1 mg PO BID PRN #14 tab 11/21/19 [Rx Last Taken Unknown] pramipexole 1 mg PO TID tab 11/21/19 [Rx Last Taken Unknown] albuterol sulfate 90 mcg/actuation aerosol inhaler 2 puff INHALATION Q4H PRN #18 g 11/22/20 [Rx Last Taken Unknown] Allergy/AdvReac Type Severity Reaction Status Date / Time varicella virus vaccine live Allergy Swelling Verified 12/11/21 07:11 [From Varivax (PF)] Family History Father Cancer Esophageal Surgical History Fusion of lumbar spine History of thyroidectomy, subtotal Social History Smoking Status: Never smoker ROS ROS ED Constitutional Constitutional ED: Denies chills or fever(s) Eyes Eyes: Denies change in vision ENT ENT ED: Denies sore throat Cardiovascular Cardiovascular: Reports chest pain Respiratory/Chest Respiratory/Chest: Denies cough or dyspnea Gastrointestinal Gastrointestinal: Denies abdominal pain, nausea or vomiting Genitourinary Genitourinary ED: Denies dysuria Musculoskeletal Musculoskeletal: Denies back pain Integumentary Denies rash Neurologic Neurologic: Reports headache(s); Denies weakness Allergic/Immunologic Allergic/Immunologic ED: Denies urticaria EXAM Physical Exam Const Vital Signs: 02/11/22 13:56 02/11/22 14:03 02/11/22 16:34 Temperature 98.4 F Temperature Source Temporal Pulse Rate 69 66 Respiratory Rate 18 14 Respiratory Effort Normal Blood Pressure 179/99 H 152/72 H Blood Pressure Mean 125 98 Pulse Ox 98 98 Oxygen Delivery Method Room Air Room Air Positive well nourished and well developed General Appearance ED: well developed HEENT Reports moist mucous membranes Eyes PERRL and EOMs intact bilaterally Neck supple Chest Wall inspection of chest normal and palpation of chest normal Resp normal respiratory effort and clear to auscultation bilaterally Cardio regular rate and regular rhythm GI normal to inspection, nondistended, normoactive bowel sounds and non-tender Palpation: soft Extremity normal to inspection Neuro oriented x3 Neuro Narrative: No focal neurologic deficits. Sensorium / Orientation: alert Psych mental status grossly normal Skin no rashes or lesions noted MDM MDM MDM Narrative Medical decision making narrative: Lab work and head CT obtained. Patient did take his medications that he had missed earlier this afternoon. Lab Data Attestation: I reviewed the patient's lab results. Labs: Laboratory Results - last 24 hr 02/11/22 02/11/22 14:20 14:20 WBC 10.5 RBC 5.10 Hgb 15.9 Hct 49.0 MCV 96.1 H MCH 31.2 MCHC 32.4 RDW Std Deviation 45.7 H RDW Coeff of Madisyn 12.9 Plt Count 339 MPV 9.6 Immature Gran % (Auto) 0.300 Neut % (Auto) 77.0 H Lymph % (Auto) 14.8 L [place] % (Auto) 6.2 Eos % (Auto) 1.1 Baso % (Auto) 0.6 Absolute Neuts (auto) 8.1 H Absolute Lymphs (auto) 1.56 Nucleated RBC % 0 Sodium 139 Potassium 3.7 Chloride 106 Carbon Dioxide 30.0 Anion Gap 3 L BUN 18 Creatinine 0.88 Estim Creat Clear Calc 89.53 Est GFR (MDRD) Af Amer 110 Est GFR (MDRD) Non-Af 91 BUN/Creatinine Ratio 20.5 H Glucose 116 H Calcium 9.7 Troponin I High Sens 6 Radiography Diagnostic Testing: Clinical Impression(s) from Imaging Studies Brain CT 02/11/22 14:12 IMPRESSION: Normal unenhanced CT scan of the brain. Electronically Signed: Sohan Ramirez MD at 14:46 EDT , EKG Initial EKG: Attestation: I personally reviewed and interpreted this EKG as follows: Interpretation: Sinus Rhythm (Sinus at 74 with no acute ischemia.) Treatment and Re-Evaluation Narrative: Repeat evaluation patient resting comfortably. Vital signs of been stable. I did speak with the patient's neurologist, Dr. Mccain from [facility]. I relayed was concerned about possibly needing medication adjusted as he has recently lost weight. He did request that we cut out the evening dose of Mirapex as this may be causing some of his symptoms. They are to make this adjustment and then monitor his symptoms. is comfortable this plan. Discharge Plan Triage Chief Complaint: Weakness ED Provider: Mary Parker Dx/Rx/DC Orders Clinical Impression: Weakness Instructions: ED Weakness (Uncertain Cause) Prescriptions: No Action albuterol sulfate [Ventolin HFA] 90 mcg/actuation HFA aerosol inhaler 2 puff INHALATION Q4H PRN (Reason: shortness of breath or wheezing) Qty: 18 RF: 6 aspirin 81 MG tablet 81 mg PO DAILY@0800 RF: 0 tamsulosin 0.4 MG capsule 0.4 mg PO BID RF: 0 dorzolamide-timolol 1 DROP bottle 1 drp ophthalmic (eye) BID RF: 0 levothyroxine 200 MCG tablet 200 mcg PO DAILY RF: 0 bimatoprost 1 DROP bottle 1 drp EACH EYE QHS RF: 0 multivitamin 1 EACH tablet 1 ea PO DAILY RF: 0 tolterodine 4 MG capsule,extended release 24hr 4 mg PO DAILY RF: 0 carbidopa-levodopa 50MG-20 tablet extended release 1 tab PO DAILY RF: 0 netarsudil 0.02 % drops 1 drp otic (ear) DAILY RF: 0 carbidopa-levodopa 1 EACH tablet,disintegrating 50 mg PO 4X/DAY RF: 0 pramipexole 1 MG tablet 1 mg PO TID RF: 0 lorazepam 1 MG tablet 1 mg PO BID PRN (Reason: Anxiety) Qty: 14 RF: 0 Primary Care Provider: Zana Vásquez Referrals: Zana Vásquez MD [Primary Care Provider] - Activity Restrictions/Additional Instructions: As discussed with Dr. Mccain, please eliminate your bedtime dose of Mirapex. Disposition Disposition: Home, Self Care
--- NOTE | 2022-02-11 14:12 | CT_ITS ---
STUDY: CT BRAIN WITHOUT CONTRAST REASON FOR EXAM: Male, 71 years old. headache RADIATION DOSAGE (If Supplied By Facility): CTDIvol = ( 44.99 ) mGy, DLP = ( 829.85 ) mGycm TECHNIQUE: Transaxial CT imaging of the brain was performed without administration of intravenous contrast material. Individualized dose optimization techniques were used for this CT. COMPARISON: 11/19/2019 FINDINGS: Normal soft tissue structures. Normal calvarium. Normal size ventricles and extra-axial spaces for the patient''s age. Normal white matter tracts of the cerebral hemispheres. Normal basal ganglia and thalami. Normal brainstem. Normal cerebellum. There is no intracranial hemorrhage. There are no findings of an acute ischemic infarction. Normal visualized paranasal sinuses. CT/Brain/Head without Contrast IMPRESSION: Normal unenhanced CT scan of the brain. Electronically Signed: Sohan Ramirez MD at 14:46 EDT ,
[2022-02-11 14:28] LABS: Absolute Lymphocyte Count 1.56 X10^3/uL (0.83-4.51); Absolute Neutrophil Count 8.1 X10^3/uL (2.0-7.7); Basophil# 0.06 X10^3/uL; Basophil% 0.6 % (0-1); Eosinophil# 0.12 X10^3/uL; Eosinophils% 1.1 % (0-5); Hemoglobin 15.9 g/dL (13.0-16.5); Lymphocyte # 1.56 X10^3/ul (0.83-4.51); Lymphocyte % 14.8 % (19-41); Mean Corp Hgb Conc 32.4 g/dL (32-36); Mean Corpuscular Hgb 31.2 pg (27.0-32.0); Mean Corpuscular Volume 96.1 fL (80-94); Mean Platelet Vol. 9.6 fl (6.2-12.0); Monocyte# 0.65 X10^3/uL; Monocyte% 6.2 % (0-10); NRBC Flagged by Analyzer 0 % (0-5); Neutrophil # 8.09 X10^3/uL (2.7-7.7); Platelet Count 339 K/mm3 (150-450); RBC Distribution Width CV 12.9 % (11.6-14.6); RBC Distribution Width SD 45.7 fl (35.1-43.9); White Blood Count 10.5 K/mm3 (4.4-11.0)
[2022-02-11 14:45] LABS: Anion Gap 3 (5-15); BUN 18 mg/dL (7-18); BUN/Creat Ratio 20.5 RATIO (10-20); Calcium,Total 9.7 mg/dL (8.5-10.1); Chloride 106 mmol/L (98-107); Creatinine, Serum 0.88 mg/dL (0.70-1.30); EST Glomerular Filtration Rate 91 mL/min (>60); Est Glom Filt Rate - Afr Amer 110 mL/min (>60); Estimated Creatinine Clearance 89.53 ml/min; Glucose 116 mg/dL (74-106); Potassium 3.7 mmol/L (3.5-5.1); Sodium Level 139 mmol/L (136-145); Troponin-I HS 6 pg/mL (3.0-78.0)
[2022-02-11 16:34] VITALS: BP 152/72; PULSE 66; RESP 14; O2SAT 98
[2022-02-11 17:23] VITALS: BP 133/88; PULSE 66; RESP 14; TEMP 36.9; O2SAT 98
== END 2022-02-11 17:24 | disposition home or self-care (01) ==
PROVIDERS: Emergency Provider Emergency Medicine; PCP Family Medicine; Visit Provider Emergency Medicine
DX: R53.1 Weakness (principal); G20 Parkinson's disease; E03.9 Hypothyroidism, unspecified; N40.0 Benign prostatic hyperplasia without lower urinary tract symptoms; Z79.82 Long term (current) use of aspirin; Z79.899 Other long term (current) drug therapy
CPT/HCPCS: 70450; 80048; 84484; 85025; 93005; 99285

== ENCOUNTER → 2022-03-21 | Outpatient (CLI) | payer OTHER, SELFPAY ==
[2022-03-21 16:49] LABS: Bacteria 0 SEEN /hpf (None Seen); Red Blood Cells-Urine 0 SEEN /hpf (0-5); Squamous Epithelial Cells - UA 0 SEEN /hpf (0-5); White Blood Cells 0 SEEN /hpf (0-5)
[2022-03-21 17:48] LABS: Absolute Lymphocyte Count 2.69 X10^3/uL (0.83-4.51); Basophil# 0.05 X10^3/uL; Basophil% 0.5 % (0-1); Eosinophil# 0.12 X10^3/uL; Eosinophils% 1.2 % (0-5); Hematocrit 43.2 % (40-54); Hemoglobin 13.7 g/dL (13.0-16.5); Lymphocyte # 2.69 X10^3/ul (0.83-4.51); Mean Corp Hgb Conc 31.7 g/dL (32-36); Mean Corpuscular Hgb 29.9 pg (27.0-32.0); Mean Corpuscular Volume 94.3 fL (80-94); Mean Platelet Vol. 9.2 fl (6.2-12.0); Monocyte# 0.71 X10^3/uL; Monocyte% 7.4 % (0-10); NRBC Flagged by Analyzer 0 % (0-5); Neutrophil # 6.02 X10^3/uL (2.7-7.7); Neutrophil % 62.6 % (47-70); Platelet Count 334 K/mm3 (150-450); RBC Distribution Width CV 13.1 % (11.6-14.6); RBC Distribution Width SD 44.9 fl (35.1-43.9); Red Blood Count 4.58 M/mm3 (4.6-6.2); White Blood Count 9.6 K/mm3 (4.4-11.0)
[2022-03-21 17:54] LABS: Color, Urine Yellow (Yellow); Glucose, Dipstick Normal (Normal); Ketone-Dipstick 15 mg/dl (Negative); Leukocyte Esterase-Dipstick 25 /ul (Negative); Nitrite-Dipstick Negative (Negative); Occult Blood-Urine Negative /ul (Negative); Protein-Dipstick 15 mg/dl (Negative); Urine Bilirubin Dipstick Negative (Negative); Urine Clarity Clear (Clear); Urine Urobilinogen 1 mg/dl (Normal)
[2022-03-21 18:09] LABS: Mucous, Urine 1+ /hpf (<or=2+)
[2022-03-21 18:36] LABS: ALB/GLOB Ratio 1.1 RATIO (0.9-2.4); AST(SGOT) 19 U/L (15-37); Alanine Aminotransfer ALT/SGPT 10 U/L (16-61); Albumin, Serum 3.7 g/dL (3.2-5.0); Alkaline Phosphatase 70 U/L (45-117); Anion Gap 5 (5-15); BUN 20 mg/dL (7-18); BUN/Creat Ratio 25.8 RATIO (10-20); Calcium,Total 8.7 mg/dL (8.5-10.1); Chloride 106 mmol/L (98-107); Cholesterol 167 mg/dL (200); Creatinine, Serum 0.77 mg/dL (0.70-1.30); EST Glomerular Filtration Rate 106 mL/min (>60); Est Glom Filt Rate - Afr Amer 128 mL/min (>60); Globulin 3.5 g/dL (2.2-4.2); Glucose 91 mg/dL (74-106); High Density Lipoprotein 38 mg/dL; Protein, Total 7.2 g/dL (6.4-8.2); Sodium Level 140 mmol/L (136-145); T4 Free Direct 1.21 ng/dL (0.76-1.46); Thyroid Stim Hormone (TSH) 1.67 uIU/mL (0.358-3.74); Triglycerides 141 mg/dL; Very Low Density Lipoprotein 28 mg/dL (5-40)
== END | disposition home or self-care (01) ==
LOC: MFPLAB 16:46
PROVIDERS: PCP Family Medicine; Visit Provider Family Medicine
DX: I10 Essential (primary) hypertension (principal); E03.9 Hypothyroidism, unspecified
CPT/HCPCS: 36415; 80053; 80061; 81001; 84439; 84443; 85025

== ENCOUNTER 2022-05-01 09:29 | Observation (INO) | payer OTHER, SELFPAY ==
[2022-05-01] VITALS (13 sets, daily range): BP systolic 78–159; BP diastolic 51–86; PULSE 46–95; RESP 16–20; TEMP 36.2–37.1; O2SAT 95–100; BMI 32.0; BMI 32.1
--- NOTE | 2022-05-01 09:33 | PCM.HP.STD ---
HPI - General HPI Narrative JERED ESCOBAR, is a 71 M who presents for a TURP and removal of urolift clips [facility] Medical History (Updated 04/24/22 @ 10:12 by Kristen Posada) Anxiety Bladder disease BPH (benign prostatic hyperplasia) Cataract fragments in both eyes following surgery CPAP (continuous positive airway pressure) dependence GERD (gastroesophageal reflux disease) Glaucoma Heartburn History of stress test Hypertension Hypertensive urgency Hypothyroidism Non-smoker SAUL (obstructive sleep apnea) Parkinsons Prostate disease Wears glasses Home Medications aspirin 81 mg PO DAILY@0800 06/26/17 [History Last Taken 04/23/22] bimatoprost 1 drp EACH EYE QHS 06/26/17 [History Last Taken 11/18/19] dorzolamide-timolol 1 drp OPHTHALMIC (EYE) BID 06/26/17 [History Last Taken 11/18/19] levothyroxine 200 mcg PO DAILY 06/26/17 [History Last Taken 05/01/22] multivitamin 1 ea PO DAILY 11/19/19 [History Last Taken 11/18/19] netarsudil 1 drp OTIC (EAR) DAILY 11/19/19 [History Last Taken 11/18/19] lorazepam 1 mg PO BID PRN #14 tab 11/21/19 [Rx Last Taken Unknown] pramipexole 1 mg PO TID tab 11/21/19 [Rx Last Taken Unknown] albuterol sulfate 90 mcg/actuation aerosol inhaler 2 puff INHALATION Q4H PRN #18 g 11/22/20 [Rx Last Taken Unknown] Rytary 3 cap PO TID 04/24/22 [History Last Taken 05/01/22] Rytary 4 cap PO DAILY 04/24/22 [History Last Taken Unknown] carbidopa-levodopa 0.5 tab PO QHS 04/24/22 [History Last Taken Unknown] lisinopril 10 mg PO DAILY 04/24/22 [History Last Taken 05/01/22] rasagiline 1 mg PO DAILY 04/24/22 [History Last Taken Unknown] verapamil 300 mg PO DAILY 04/24/22 [History Last Taken 05/01/22] ciprofloxacin HCl [Cipro] 500 mg PO BID #10 tab 05/01/22 [Rx Last Taken Unknown] Allergy/AdvReac Type Severity Reaction Status Date / Time varicella virus vaccine live Allergy Swelling Verified 05/01/22 08:52 [From Varivax (PF)] Family History Father Cancer Esophageal Surgical History (Updated 04/24/22 @ 10:12 by Kristen Posada) Fusion of lumbar spine History of thyroidectomy, subtotal Hx of bladder repair surgery Hx of colonoscopy Social History Smoking Status: Never smoker Vital Signs Vital Signs Vital Signs: 05/01/22 08:53 Temperature 98.7 F Temperature Source Temporal Pulse Rate 68 Respiratory Rate 16 Respiratory Pattern Normal Blood Pressure 118/81 H Blood Pressure Mean 93 Blood Pressure Source Monitor Blood Pressure Position Semi-Fowlers Blood Pressure Location Left Arm Pulse Ox 100 Oxygen Delivery Method Room Air Weight Weight: 110 kg Body Mass Index (BMI) 32.0
--- NOTE | 2022-05-01 09:34 | PCM.DC ---
Discharge Instructions Diet Discharge Diet: No restrictions Activity Discharge Activity: Return to Normal Activity and May Not Drive (while taking narcotic pain medications.) Dressing / Incision Call your doctor if you observe: Fever of 101 or Higher Follow Up Care Please Follow Up With: Gigi Martin MD When: Call [phone] for an appointment Test Results: Test results from this visit will be discussed in further detail at your follow-up appointment, if applicable. Discharge Plan Admission Primary Reason for Your Visit: TUR Attending Provider: Gigi Martin Primary Care Provider: Zana Vásquez Instructions Patient Instructions: [facility] Discharge Orders/Prescriptions Prescriptions: New ciprofloxacin HCl [Cipro] 500 mg tablet 500 mg PO BID Qty: 10 RF: 0 Continued albuterol sulfate [Ventolin HFA] 90 mcg/actuation HFA aerosol inhaler 2 puff INHALATION Q4H PRN (Reason: shortness of breath or wheezing) Qty: 18 RF: 6 dorzolamide-timolol 1 DROP bottle 1 drp ophthalmic (eye) BID RF: 0 levothyroxine 200 MCG tablet 200 mcg PO DAILY RF: 0 bimatoprost 1 DROP bottle 1 drp EACH EYE QHS RF: 0 multivitamin 1 EACH tablet 1 ea PO DAILY RF: 0 netarsudil 0.02 % drops 1 drp otic (ear) DAILY RF: 0 pramipexole 1 MG tablet 1 mg PO TID RF: 0 lorazepam 1 MG tablet 1 mg PO BID PRN (Reason: Anxiety) Qty: 14 RF: 0 carbidopa-levodopa 50-200 mg Tablet Extended Release 0.5 tab PO QHS RF: 0 lisinopril 10 mg Tablet 10 mg PO DAILY RF: 0 verapamil 300 mg Capsule, [address] 300 mg PO DAILY RF: 0 rasagiline 1 mg Tablet 1 mg PO DAILY RF: 0 Rytary 48.75-195 mg Capsule, Extended Release 4 cap PO DAILY RF: 0 Rytary 48.75-195 mg Capsule, Extended Release 3 cap PO TID RF: 0 Held aspirin 81 MG tablet 81 mg PO DAILY@0800 RF: 0 Hold Instructions: Resume on 05/08/22. Discontinued tamsulosin 0.4 MG capsule 0.4 mg PO QHS RF: 0 mirabegron 50 mg Tablet Extended Release 24 Hr 50 mg PO DAILY RF: 0 Referrals / Follow Up: Gigi Martin MD [STAFF PHYSICIAN] - Zana Vásquez MD [Primary Care Provider] - Disposition Disposition (needs filled in before D/C Order can be placed): Home, Self Care
[2022-05-01] MEDS: Cefazolin 2 GM in 0.9% Normal Saline 100 ML IV (09:48)
--- NOTE | 2022-05-01 09:50 | PROS_PTH ---
PATIENT: JERED ESCOBAR LOC: [facility] U#:[id number] AGE/SX: 71/M ROOM: VT305 RE05/01/[address]: Dr. Gigi Martin MD : 1950 BED: 1 DIS: 05/02/2022 SPEC #: [id number] RECD: 05/01/22 11:04 STATUS: MARIPOSA BOTELLO #: [id number] BRANDI: 05/01/22 09:[address]: Gigi Martin DEPT: SURGICAL PATHOLOGY RECD BY: Radha Roy ENTERED: 05/01/22 11:24 SP TYPE: TURP OTHR DR: Dr. Zana Vásquez MD Tissues: Prostate, NOS Procedures: Surgery Specimen Level IV HEADER OPERATION: Cysto, TUR prostate, Olympus, litholapaxy, removal Urolift clip PRE-OP DIAGNOSIS: BPH, urge incontinence, OAB TISSUE SUBMITTED: Prostate chips MICROSCOPIC DIAGNOSIS Prostate, transurethral resection: Benign nodular hyperplasia, glandular and stromal types. Mild chronic inflammation. AM:hany 05/02/2022 MICROSCOPIC DESCRIPTION Slides are reviewed. GROSS DESCRIPTION Received is one container labeled with the patient's name and designated prostate tissue. The specimen consists of multiple irregular fragments of pink-chen, rubbery, soft tissue that in aggregate weigh 10.5 gm and measure in aggregate 6 x 4 x 0.8 cm. Specification Consultant portions are submitted in seven cassettes. / AM:hany 05/01/2022 TC:5 CPT: 38965
--- NOTE | 2022-05-01 10:44 | OP.PCM_ITS ---
Report of Operation Date of Procedure: 05/01/22 Pre-Operative Diagnosis: foriegn object and bph with obstruction Post-Operative Diagnosis: same Surgery/Procedure Performed:: TURP and cystolithalopaxy (removal of foreign object) small Description of Surgical Findings:: In the preoperative setting I discussed with the patient how the surgery would be done with expect afterwards. We discussed how a prostate resection is done and we discussed the risk of the surgery including, bleeding, infection, retrograde ejaculation, changes with ejaculation or intercourse,. We discussed the possibility that the resection of the prostate may not alleviate his urinary symptoms. We discussed the small risk of developing scar tissue along the urethral channel and strictures. We also discussed the chance of the prostate could grow back and he may need further surgery or treatment in the future for prostate problems. Patient was taken back to the operating room, timeout procedure was performed, he was identified and marked and placed on the operating room table. He underwent general anesthesia. He was placed in dorsolithotomy position. Penis and testicles were prepped and draped in usual sterile fashion. Went into the bladder using the visual obturator with a resectoscope. Once inside the bladder identified the right and left ureteral orifice. I then went into the bladder using a 24 Vincentian cystoscope. We used the bridge through the scope for continuous irrigation. Then using the resectoscope the foreign object (urolift clips) in the prostate was trapped against the back wall and pulled out of the bladder, all 6 clips were removed. There was one stone on one of the clips. I then identified the prostate and the anatomy of the prostate. I marked out the area of the sphincter and the verumontanum was identified. I then proceeded with the prostate resection first resected the median lobe. And then resected the right lobe of the prostate. Then to resect the left lobe of the prostate. I then resected the apical tissue of the prostate. This was a complete resection of all obstructive tissue to improve voiding and relieve obstruction. I then made sure that there was no injury to the sphincter or the verumontanum was still intact. At the end of the resection all the chips were Ellik out of the bladder. I then identified the left and right ureteral orifice and these were confirmed to be in good position and effluxing and not injured. The resectoscope was removed, a 22 Vincentian catheter was placed into the bladder on continuous irrigation. And the urine was fairly light pink color and draining normally. He was taken back to the PACU in good condition. Surgeon: mona Type of Anesthesia: General Drains: [address] Ad[address] VTE Documentation VTE Present on Admission: No VTE Mechan Device Prophylaxis: SCD's VTE Pharm Prophylaxis ordered?: No
[2022-05-01] MEDS: Pramipexole Di-HCl 0.5 MG Tablet PO (16:21)
[2022-05-01] MEDS: Lactated Ringers 1,000 ML 999 ML IV (18:02)
[2022-05-01] MEDS: CARBIDOPA/LEVODOPA 1 EACH CAPSULE.ER 3 EACH PO (18:04)
[2022-05-01] MEDS: NETARSUDIL MESYLATE 1 DRP OPHTHALMIC (20:13)
[2022-05-01] MEDS: CARBIDOPA/LEVODOPA CR 50/200 Tablet PO (21:51)
[2022-05-01] MEDS: Latanoprost 0.005% 1 Bottle 1 DRP EACH EYE (21:52)
[2022-05-02] MEDS: LORazepam 1 MG Tablet PO (01:28)
[2022-05-02 01:47] VITALS: BMI 32.1
[2022-05-02 04:00] VITALS: BP 140/74; PULSE 53; RESP 16; TEMP 36.6; O2SAT 98
[2022-05-02] MEDS: Pramipexole Di-HCl 1 MG Tablet PO (04:19)
[2022-05-02] MEDS: Levothyroxine 100 MCG Tablet 200 MCG PO (04:20)
[2022-05-02] MEDS: CARBIDOPA/LEVODOPA 1 EACH CAPSULE.ER 4 EACH PO (04:22)
[2022-05-02 05:47] VITALS: BMI 32.1
[2022-05-02 08:39] VITALS: BP 103/55; PULSE 67; RESP 18; TEMP 36.7; O2SAT 99
[2022-05-02] MEDS: CARBIDOPA/LEVODOPA 1 EACH CAPSULE.ER 3 EACH PO ×2 (09:08→13:22)
[2022-05-02] MEDS: Pramipexole Di-HCl 0.5 MG Tablet PO ×2 (09:08→13:22)
[2022-05-02] MEDS: Dorzolamide HCL/Timolol 10 ml Bottle 1 DRP EACH EYE (09:09)
== END 2022-05-02 15:45 | disposition home or self-care (01) ==
LOC: SDC 13:10 → MS3 13:10
PROVIDERS: Admitting Provider Urology; PCP Family Medicine; Referring Provider Urology; Visit Provider Urology
PROC: (CPT 52601; principal; 2022-05-01 09:40)
DX: N40.1 Benign prostatic hyperplasia with lower urinary tract symptoms (principal); N13.8 Other obstructive and reflux uropathy; N39.46 Mixed incontinence; N32.81 Overactive bladder; Z79.899 Other long term (current) drug therapy; Z79.82 Long term (current) use of aspirin; I10 Essential (primary) hypertension; N42.0 Calculus of prostate
CPT/HCPCS: 52601; 00914; 52317; 88305; 96360; 99218; J7120; G0378; J2405

== ENCOUNTER 2022-06-15 21:48 | Inpatient (IN) | payer OTHER, MEDICARE, SELFPAY ==
[2022-06-15 21:49] VITALS: BP 108/74; PULSE 69; RESP 13; TEMP 36.3; O2SAT 100; BMI 32.3
--- NOTE | 2022-06-15 22:04 | CT_ITS ---
STUDY: CT BRAIN WITHOUT CONTRAST REASON FOR EXAM: Male, 72 years old. Injury/Pain RADIATION DOSAGE (If Supplied By Facility): CTDIvol = ( 44.99 ) mGy, DLP = ( 880.47 ) mGycm TECHNIQUE: Transaxial CT imaging of the brain was performed without administration of intravenous contrast material. Individualized dose optimization techniques were used for this CT. COMPARISON: No relevant priors. FINDINGS: Normal soft tissue structures. Normal calvarium. There is mild cerebral atrophy with widening of the extra-axial spaces and ventricular dilatation. There are areas of decreased attenuation within the white matter tracts of the supratentorial brain, consistent with microvascular disease changes. Normal basal ganglia and thalami. Normal brainstem. There is mild cerebellar atrophy. There is no intracranial hemorrhage. There are no findings of an acute ischemic infarction. Normal visualized paranasal sinuses. CT/Brain/Head without Contrast IMPRESSION: Chronic involutional changes of the brain. Electronically Signed: Rodney Tate DO at 23:08 EDT ,
--- NOTE | 2022-06-15 22:04 | CT_ITS ---
STUDY: CT CERVICAL SPINE WITHOUT CONTRAST REASON FOR EXAM: Male, 72 years old. Injury/Pain RADIATION DOSAGE (If Supplied By Facility): CTDIvol = ( 23.96 ) mGy, DLP = ( 560.95 ) mGycm TECHNIQUE: High resolution transaxial imaging was performed without contrast material. Sagittal and coronal images were reconstructed. Individualized dose optimization techniques were used for this CT. COMPARISON: None FINDINGS: Normal craniovertebral junction. Normal anterior atlantoaxial articulation. Normal odontoid process. Normal cervical lordosis. Normal vertebral bodies and posterior osseous elements. No acute fracture or listhesis. [id number] multilevel degenerative disc disease without critical stenosis. Normal visualized soft tissue structures. CT/Spine Cervical without Contras IMPRESSION: Multilevel degenerative changes, as described above. Electronically Signed: Rodney Tate DO at 23:08 EDT ,
--- NOTE | 2022-06-15 22:06 | ED.VIS.FALL ---
HPI HPI - Fall History of Present Illness Chief Complaint: Fall Informant: patient Narrative Narrative: Patient is a 72-year-old male presenting from home after mechanical fall. Patient states he tripped over cinderblock. Patient does have Parkinson's disease and is on a daily aspirin but is not on any other blood thinners. He states he landed on his right side and did hit his head. No reported loss of consciousness. He had friends that helped him up. Has not really been able to walk since and when his came home she brought him to the emergency room. Patient is complain of significant pain in his right hip. No other complaints at this time. No numbness or tingling. Did have lumbar fusion approximately [address] Antunez at the [facility]. Denies any back pain at this time. Tetanus Immunization: Unknown [facility] Medical History (Updated 06/16/22 @ 01:[address] Gisselle Dockery, DO) Anxiety Bladder disease BPH (benign prostatic hyperplasia) Cataract fragments in both eyes following surgery CPAP (continuous positive airway pressure) dependence GERD (gastroesophageal reflux disease) Glaucoma Heartburn History of stress test Hypertension Hypertensive urgency Hypothyroidism Non-smoker SAUL (obstructive sleep apnea) Parkinsons Prostate disease Wears glasses Home Medications aspirin 81 mg tablet,delayed release 81 mg PO DAILY@0800 Anticoag 06/26/17 [History Last Taken 04/23/22] bimatoprost 0.03 % drops with applicator, eyelash base 1 drp topical QHS eye drop 06/26/17 [History Last Taken 11/18/19] dorzolamide 22.3 mg-timolol 6.8 mg/mL eye drops 1 drp ophthalmic (eye) BID Eye drops 06/26/17 [History Last Taken 11/18/19] levothyroxine 200 mcg tablet 200 mcg PO DAILY hypothyroid 06/26/17 [History Last Taken 05/01/22] multivitamin 3 tab PO DAILY Supplement 11/19/19 [History Last Taken 11/18/19] lorazepam 1 mg tablet 1 mg PO BID PRN Anxiety #14 tabs 11/21/19 [Rx Last Taken Unknown] carbidopa ER 48.75 mg-levodopa 195 mg capsule,extended release (Rytary) 3 cap PO 4XD SHAKES 04/24/22 [History Last Taken 05/01/22] carbidopa ER 50 mg-levodopa 200 mg tablet,extended release 1 tab PO QHS 04/24/22 [History Last Taken Unknown] lisinopril 10 mg tablet 10 mg PO DAILY BP 04/24/22 [History Last Taken 05/01/22] rasagiline 1 mg tablet 1 mg PO DAILY SHAKES 04/24/22 [History Last Taken 06/15/22 04:30] verapamil 300 mg capsule 24hr pellet CT,ext.release 300 mg PO DAILY BP 04/24/22 [History Last Taken 05/01/22] netarsudil 0.02 % eye drops 1 drp LEFT EYE QPM 05/01/22 [History Last Taken Unknown] pramipexole 0.5 mg tablet (Mirapex) 0.5 mg PO BID SHAKES 05/01/22 [History Last Taken Unknown] pramipexole 1 mg tablet (Mirapex) 1 mg PO DAILY PARKINSONS 05/01/22 [History Last Taken 06/15/22 04:30] Allergy/AdvReac Type Severity Reaction Status Date / Time varicella virus vaccine live Allergy Swelling Verified 06/15/22 21:51 [From Varivax (PF)] Family History (Updated 06/15/22 @ 23:[address] Zari Corbett MD) Father Cancer Esophageal Diabetes Mother Diabetes Family History no significant family his no significant family history Surgical History (Updated 06/15/22 @ 23:[address] Zari Corbett MD) Fusion of lumbar spine History of eye surgery History of thyroidectomy, subtotal Hx of bladder repair surgery Hx of colonoscopy Social History (Updated 06/15/22 @ 23:[address] Zari Corbett MD) household members: spouse Smoking Status: Never smoker alcohol intake: never substance use type: does not use ROS ROS ED Constitutional Constitutional ED: Denies chills or fever(s) Eyes Eyes: Denies change in vision ENT ENT ED: Denies rhinorrhea or sore throat Cardiovascular Cardiovascular: Denies chest pain Respiratory/Chest Respiratory/Chest: Reports cough and other Details: chronic cough ; Denies dyspnea or dyspnea on exertion Gastrointestinal Gastrointestinal: Denies abdominal pain or nausea Genitourinary Genitourinary ED: Denies dysuria or hematuria Musculoskeletal Musculoskeletal: Reports other Details: right hip pain Integumentary Denies rash Neurologic Neurologic: Denies headache(s), paresthesias or weakness Psychiatric Psychiatric: Denies anxiety Hematologic/Lymphatic Hematologic/Lymphatic: Denies easy bleeding or easy bruising EXAM Physical Exam Const Vital Signs: 06/15/22 21:49 06/15/22 22:01 Temperature 97.4 F L Temperature Source Temporal Pulse Rate 69 Respiratory Rate 13 Respiratory Effort Normal Non-Labored Respiratory Depth Normal Respiratory Pattern Normal Blood Pressure 108/74 Blood Pressure Mean 85 Pulse Ox 100 Oxygen Delivery Method Room Air Room Air Positive well nourished and well developed General Appearance ED: well developed HEENT normocephalic and atraumatic; Negative for Rasmussen's sign, raccoon eyes or scalp tenderness Nose: no nasal discharge Tympanic Membrane ED: Yes TM's normal bilaterally Mouth ED: Yes other Mouth: other Other Details: No Malocclusion Eyes PERRL Neck full ROM Neck Narrative: No midline tenderness Thyroid: Negative for tender Chest Wall inspection of chest normal and palpation of chest normal Chest: Negative for crepitus Resp normal respiratory effort, no retractions and clear to auscultation bilaterally Cardio regular rate and regular rhythm Jugular Venous Distention: Negative for JVD Peripheral Pulses: pulses 2+ throughout GI non-tender and non-distended Palpation: soft; Negative for guarding or rebound tenderness present Back/Spine Cervical Spine: Negative for cervical spine tenderness Thoracic Spine / Upper Back: Negative for thoracic spinal tenderness Lumbar Spine / Lower Back: Negative for lumbar spinal tenderness Extremity normal to inspection and full ROM Extremity Narrative: pelvis stable, no deformity of the lower extremities. Patient does have pain in the right hip with logroll of the right lower extremity Neuro oriented x3, moves all extremities and no sensory deficits noted Sensorium / Orientation: alert Motor Exam: strength 5/5 throughout Psych mental status grossly normal Skin no wounds Trauma: Negative for abrasion MDM MDM MDM Narrative Medical decision making narrative: Patient is a 9-year-old male presenting with right hip pain after mechanical fall. He did hit his head and head CT and C-spine is also ordered in addition to x-ray of the right hip. Clinically I suspect patient has a hip fracture given his pain with range of motion of the hip and mechanism of injury. He is initially given IV morphine for pain control with no significant improvement. Then given a dose of IV Dilaudid with improvement. CT of the head and C-spine do not show any acute fracture or acute intracranial process. X-ray interpreted by myself as well as radiology does show femoral neck fracture of the right hip. Case is discussed with Dr. Turner, who will evaluate the patient and likely manage the fracture operatively. Case is discussed with hospitalist will admit the patient. Lab Data Attestation: I reviewed the patient's lab results. Labs: Laboratory Results - last 24 hr 06/15/22 06/15/22 22:15 22:15 WBC 8.6 RBC 4.25 L Hgb 13.2 Hct 41.9 MCV 98.6 H MCH 31.1 MCHC 31.5 L RDW Std Deviation 50.0 H RDW Coeff of Madisyn 13.7 Plt Count 308 MPV 9.2 Immature Gran % (Auto) 0.500 Neut % (Auto) 72.2 H Lymph % (Auto) 18.8 L [place] % (Auto) 7.3 Eos % (Auto) 0.9 Baso % (Auto) 0.3 Absolute Neuts (auto) 6.2 Absolute Lymphs (auto) 1.62 Nucleated RBC % 0 Sodium 141 Potassium 4.0 Chloride 109 H Carbon Dioxide 27.0 Anion Gap 5 BUN 32 H Creatinine 1.03 Estim Creat Clear Calc 75.42 Est GFR (MDRD) Af Amer 92 Est GFR (MDRD) Non-Af 76 BUN/Creatinine Ratio 31.1 H Glucose 120 H Calcium 8.4 L Radiography Diagnostic Testing: Clinical Impression(s) from Imaging Studies Brain CT 06/15/22 22:04 IMPRESSION: Chronic involutional changes of the brain. Electronically Signed: Rodney Tate DO at 23:08 EDT Reading Location ID and State: [address] [place] [address] Tel , Service support , Cervical Spine CT 06/15/22 22:04 IMPRESSION: Multilevel degenerative changes, as described above. Electronically Signed: Rodney Tate DO at 23:08 EDT Reading Location ID and State: [facility] / [place] Tel , Service support , Hip/Pelvis X-Ray 06/15/22 22:30 IMPRESSION: As above Electronically Signed: Rodney Tate DO at 23:09 EDT , Rhythm Strip Rhythm Strip: Sinus Rhythm Rate: 56 Ectopy: None EKG Initial EKG: Attestation: I personally reviewed and interpreted this EKG as follows: Interpretation: Sinus Bradycardia Comments: Sinus bradycardia rate of 56 Left axis Normal intervals Normal ST segments Compared to prior EKG on 02/11/2022 patient is now bradycardic but has no other changes Discharge Plan Dx/Rx/DC Orders Clinical Impression: Closed right hip fracture, Parkinsons, Fall from other slipping, tripping, or stumbling Disposition Disposition: Acute Care Hospital [facility] Discharge Date/Time: 06/16/22 01:24
[2022-06-15] MEDS: Morphine 4 MG/ML Syringe IV (22:17)
[2022-06-15] MEDS: Diphth,Pertuss(Acell),Tet Vac 0.5 ML Vial IM (22:18)
--- NOTE | 2022-06-15 22:30 | RAD_ITS ---
STUDY: X-RAY - PELVIS AND RIGHT HIP REASON FOR EXAM: Male, 72 years old. Injury/Pain TECHNIQUE: 3 views of the pelvis and hip. COMPARISON: None. FINDINGS: Nondisplaced complete fracture of the right femoral neck without evidence of trochanteric involvement RAD/HIP, UNI W/ Pelvis 2-3 Views IMPRESSION: As above Electronically Signed: Rodney Tate DO at 23:09 EDT ,
[2022-06-15 22:52] LABS: Absolute Lymphocyte Count 1.62 X10^3/uL (0.83-4.51); Absolute Neutrophil Count 6.2 X10^3/uL (2.0-7.7); Basophil# 0.03 X10^3/uL; Basophil% 0.3 % (0-1); Eosinophil# 0.08 X10^3/uL; Eosinophils% 0.9 % (0-5); Hematocrit 41.9 % (40-54); Hemoglobin 13.2 g/dL (13.0-16.5); Lymphocyte # 1.62 X10^3/ul (0.83-4.51); Lymphocyte % 18.8 % (19-41); Mean Corp Hgb Conc 31.5 g/dL (32-36); Mean Corpuscular Hgb 31.1 pg (27.0-32.0); Mean Corpuscular Volume 98.6 fL (80-94); Mean Platelet Vol. 9.2 fl (6.2-12.0); Monocyte# 0.63 X10^3/uL; Monocyte% 7.3 % (0-10); NRBC Flagged by Analyzer 0 % (0-5); Neutrophil # 6.21 X10^3/uL (2.7-7.7); Neutrophil % 72.2 % (47-70); Platelet Count 308 K/mm3 (150-450); RBC Distribution Width CV 13.7 % (11.6-14.6); Red Blood Count 4.25 M/mm3 (4.6-6.2); White Blood Count 8.6 K/mm3 (4.4-11.0)
--- NOTE | 2022-06-15 23:10 | EKG12_ITS ---
Test Reason : FALL Blood Pressure : / mmHG Vent. Rate : 056 BPM Atrial Rate : 056 BPM P-R Int : 162 ms QRS Dur : 100 ms QT Int : 418 ms P-R-T Axes : 021 -27 015 degrees QTc Int : 403 ms Sinus bradycardia Otherwise normal ECG Confirmed by EVELIN WALKER, GALLITO ([id number]), associate editor TAWANNA JIM ([id number]) on 06/17/2022 11:09:50 AM Referred By: MARINA Confirmed By:GALLITO WATERS MD
[2022-06-15 23:19] LABS: Anion Gap 5 (5-15); BUN 32 mg/dL (7-18); BUN/Creat Ratio 31.1 RATIO (10-20); Calcium,Total 8.4 mg/dL (8.5-10.1); Chloride 109 mmol/L (98-107); Creatinine, Serum 1.03 mg/dL (0.70-1.30); EST Glomerular Filtration Rate 76 mL/min (>60); Est Glom Filt Rate - Afr Amer 92 mL/min (>60); Estimated Creatinine Clearance 75.42 ml/min; Glucose 120 mg/dL (74-106); Sodium Level 141 mmol/L (136-145)
--- NOTE | 2022-06-15 23:31 | HP.PCM.HOS_ITS ---
HPI - General General Date of Admission: 06/15/22 Date of Service: 06/15/22 Chief Complaint: Fall, Right hip pain. HPI Narrative The patient is a 72 y/o M w/ PMHx: Parkinson's disease, Anxiety and Depression, GERD, SAUL on CPAP q HS, BPH, COPD, Hypothyroidism s/p subtotal thyroidectomy, HTN, HLD, Obesity who presents to the [facility] ED on 06/15/22 with history of mechanical fall noted to have tripped over a cinder block landing on his right side and unfortunately hitting his head at the same time but no loss of consciousness associated with assistance getting up from his friends however he is not been able to walk since prompting his to bring him to the ED for evaluation with ongoing severe significant right hip pain since. He denies any associated paresthesias to the extremity. Notes at rest his pain is 3-4/10, aching but with movement pain 10/10, sharp. Work-up in the ED included T97.4, heart rate 69, BP 108/74, respiratory rate 13, 100% on room air, CBC with WC 8.6, hemoglobin 13.2, platelets 308 without marked shift, BMP chloride 109, BUN/creat 32/1.03, glucose 120 otherwise unremarkable, CT brain with chronic involutional changes, CT cervical spine with multilevel degenerative changes, plain film of the right hip with a nondisplaced complete fracture of the right femoral neck without evidence of trochanteric involvement, EKG SB without acute evidence of ischemia. In the ED patient tetanus updated and patient admi nistered morphine 4 mg IV x1. ED physician discussed case with Dr. Turner. In the ED patient administered morphine, Dilaudid and tetanus update. [facility] Medical History (Updated 06/15/22 @ 23:[address] Zari Corbett MD) Anxiety Bladder disease BPH (benign prostatic hyperplasia) Cataract fragments in both eyes following surgery CPAP (continuous positive airway pressure) dependence GERD (gastroesophageal reflux disease) Glaucoma Heartburn History of stress test Hypertension Hypertensive urgency Hypothyroidism Non-smoker SAUL (obstructive sleep apnea) Parkinsons Prostate disease Wears glasses Home Medications aspirin 81 mg tablet,delayed release 81 mg PO DAILY@0800 Anticoag 06/26/17 [History Last Taken 04/23/22] bimatoprost 0.03 % drops with applicator, eyelash base 1 drp topical QHS eye drop 06/26/17 [History Last Taken 11/18/19] dorzolamide 22.3 mg-timolol 6.8 mg/mL eye drops 1 drp ophthalmic (eye) BID Eye drops 06/26/17 [History Last Taken 11/18/19] levothyroxine 200 mcg tablet 200 mcg PO DAILY hypothyroid 06/26/17 [History Last Taken 05/01/22] multivitamin 3 tab PO DAILY Supplement 11/19/19 [History Last Taken 11/18/19] lorazepam 1 mg tablet 1 mg PO BID PRN Anxiety #14 tabs 11/21/19 [Rx Last Taken Unknown] carbidopa ER 48.75 mg-levodopa 195 mg capsule,extended release (Rytary) 3 cap PO DAILY SHAKES 04/24/22 [History Last Taken 05/01/22] carbidopa ER 50 mg-levodopa 200 mg tablet,extended release 1 tab PO QHS 04/24/22 [History Last Taken Unknown] lisinopril 10 mg tablet 10 mg PO DAILY BP 04/24/22 [History Last Taken 05/01/22] rasagiline 1 mg tablet 1 mg PO DAILY SHAKES 04/24/22 [History Last Taken Unknown] verapamil 300 mg capsule [address]hr pellet CT,ext.release 300 mg PO DAILY BP 04/24/22 [History Last Taken 05/01/22] netarsudil 0.02 % eye drops 1 drp LEFT EYE QPM 05/01/22 [History Last Taken Unknown] pramipexole 0.5 mg tablet (Mirapex) 0.5 mg PO DAILY SHAKES 05/01/22 [History Last Taken Unknown] pramipexole 0.5 mg tablet (Mirapex) 0.5 mg PO DAILY SHAKES 05/01/22 [History Last Taken Unknown] pramipexole 1 mg tablet (Mirapex) 1 mg PO BREAKFAST PARKINSONS 05/01/22 [History Last Taken Unknown] Allergy/AdvReac Type Severity Reaction Status Date / Time varicella virus vaccine live Allergy Swelling Verified 06/15/22 21:51 [From Varivax (PF)] Family History (Updated 06/15/22 @ 23:[address] Zari Corbett MD) Father Cancer Esophageal Diabetes Mother Diabetes Family History no significant family his Surgical History (Updated 06/15/22 @ 23:[address] Zari Corbett MD) Fusion of lumbar spine History of eye surgery History of thyroidectomy, subtotal Hx of bladder repair surgery Hx of colonoscopy Social History (Updated 06/15/22 @ 23:[address] Zari Corbett MD) household members: spouse Smoking Status: Never smoker alcohol intake: never substance use type: does not use ROS ROS Narrative Admission Review of Systems: CONSTITUTIONAL: No weight loss, fever, chills, + weakness or fatigue. HEENT: + History of significant glaucoma. Eyes: No new visual loss, new blurred vision, double vision or yellow sclerae. Ears, Nose, Throat: No hearing loss, sneezing, congestion, runny nose or sore throat. SKIN: No rash or itching, lesions, wounds. CARDIOVASCULAR: No chest pain, chest pressure or chest discomfort, palpitations, edema, orthopnea, syncopal events. RESPIRATORY: No shortness of breath, cough or sputum, wheezing, hemoptysis. GASTROINTESTINAL: No anorexia, nausea, vomiting or diarrhea, abdominal pain, melena, BRBPR. GENITOURINARY: No dysuria, frequency, urgency or retention. NEUROLOGICAL: + Some gait instability/tremors with underlying Parkinson's disease. No headache, dizziness, syncope, paralysis, ataxia, numbness or tingling in the extremities, focal weakness, change in bowel or bladder control, seizure. MUSCULOSKELETAL: + muscle, back pain, joint pain or stiffness. HEMATOLOGIC: No anemia, bleeding or bruising. LYMPHATICS: No enlarged nodes. No history of splenectomy. PSYCHIATRIC: + history of depression or anxiety. ENDOCRINOLOGIC: No reports of sweating, cold or heat intolerance. No polyuria or polydipsia. ALLERGIES: No history of asthma, hives, eczema or rhinitis. Vital Signs Vital Signs Vital Signs: 06/15/22 21:49 06/15/22 22:01 Temperature 97.4 F L Temperature Source Temporal Pulse Rate 69 Respiratory Rate 13 Respiratory Effort Normal Non-Labored Respiratory Depth Normal Respiratory Pattern Normal Blood Pressure 108/74 Blood Pressure Mean 85 Pulse Ox 100 Oxygen Delivery Method Room Air Room Air Weight Weight: 245 lb Body Mass Index (BMI) 32.3 Physical Exam Narrative Physical Examination: General: Awake, alert, oriented x 3 and cooperative, laying in the ED bed, fatigued, uncomfortable appearing. Skin: Normal color, normal turgor, no icterus, no cyanosis. HEENT: AT/NC, EOMI, PERRLA, mildly dry MM, no carotid bruits or JVD noted. Lungs: Mild diminished, greater bases, appropriate effort, no rales, ronchi or wheezing. Heart: Currently regular rate and rhythm; no gallop, rub audible. Abdomen: Soft, obese, NTTP, ND, distant normal BS, no HSM. Extremities: No cyanosis, clubbing, or edema, status post mechanical fall with right hip fracture, rotated, peripheral pulses intact. Neurological: Patient awake, alert, oriented as noted, cognitive function appears baseline intact; pupils equally reactive to light and accommodation, cranial nerves II-XII grossly normal, moving all 4 extremities except expected severe limitation right lower extremity given fall with right hip fracture, strength accordingly severely globally decreased. Psychiatric: Affect appears fatigued, uncomfortable, no acute evidence of depressive or anxiety feelings. Results Lab / Micro Data Result Diagrams: 06/15/22 22:15 06/15/22 22:15 Labs: Laboratory Results - last 24 hr 06/15/22 22:15: WBC 8.6, RBC 4.25 L, Hgb 13.2, Hct 41.9, MCV 98.6 H, MCH 31.1, MCHC 31.5 L, RDW Std Deviation 50.0 H, RDW Coeff of Madisyn 13.7, Plt Count 308, MPV 9.2, Immature Gran % (Auto) 0.500, Neut % (Auto) 72.2 H, Lymph % (Auto) 18.8 L, [place] % (Auto) 7.3, Eos % (Auto) 0.9, Baso % (Auto) 0.3, Absolute Neuts (auto) 6.2, Absolute Lymphs (auto) 1.62, Nucleated RBC % 0 06/15/22 22:15: Sodium 141, Potassium 4.0, Chloride 109 H, Carbon Dioxide 27.0, Anion Gap 5, BUN 32 H, Creatinine 1.03, Estim Creat Clear Calc 75.42, Est GFR (MDRD) Af Amer 92, Est GFR (MDRD) Non-Af 76, BUN/Creatinine Ratio 31.1 H, Glucose 120 H, Calcium 8.4 L Radiology Impression Brain CT 06/15/22 22:04 IMPRESSION: Chronic involutional changes of the brain. Electronically Signed: Rodney Tate DO at 23:08 EDT , Cervical Spine CT 06/15/22 22:04 IMPRESSION: Multilevel degenerative changes, as described above. Electronically Signed: Rodney Tate DO at 23:08 EDT , Hip/Pelvis X-Ray 06/15/22 22:30 IMPRESSION: As above Electronically Signed: Rodney Tate DO at 23:09 EDT , Assessment & Plan Assessment/Plan (1) Closed right hip fracture: PLAN: Plan The patient is a 72 y/o M w/ PMHx: Parkinson's disease, Anxiety and Depression, GERD, SAUL on CPAP q HS, BPH, COPD, Hypothyroidism s/p subtotal thyroidectomy, HTN, HLD, Obesity who presents to the [facility] ED on 06/15/22 with history of mechanical fall noted to have tripped over a cinder block landing on his right side and unfortunately hitting his head at the same time but no loss of consciousness associated with assistance getting up from his friends however he is not been able to walk since prompting his to bring him to the ED for evaluation with ongoing severe significant right hip pain since. #1. General debility, R hip pain s/p mechanical fall w/ right nondisplaced c omplete fracture of the femoral neck without any evidence of trochanteric involvement: Orthopedic surgery consulted from ED. Will admit to [facility], maintain NPO, continue gentle IVFs, trotter placement, monitor I/Os, frequent positioning, fall precautions, PRN pain and anti-emetic regimen. PT/OT following operative intervention. CM consulted for discharge planning. Per NSQIP patient with expected average risk however given history will place this slightly higher for perioperative infection but not specifically any perioperative cardiac event and given underlying committees would expect skilled facility placement following. Agree with progression to OR. #2. Parkinson disease: We will continue patient home pramipexole, rasagiline and rytary home regimen. Complicates presentation, maintain on fall precautions, therapies consulted as well as case management for discharge planning. #3. Anxiety and depression: We will continue patient home as needed Ativan however will hold for sedation or if concern for fall. #4. Hypothyroidism: History of prior subtotal thyroidectomy, continue home synthroid regimen. #5. 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 #6. GERD: Not on any chronic regimen per current list, place on famotidine while NPO. #7. Hypertension: Continue home regimen including verapamil, lisinopril with hold parameters as needed, PRN hydralazine. #8. Hyperlipidemia: Not on regimen, defer to outpatient. #9. Obesity: Weight loss and lifestyle changes encouraged. #10. BPH: From current list not on any chronic regimen, add if necessary or any concern for retention. #11. SAUL: CPAP nightly. #12. DVT prophylaxis: SCDs, hold chemoprophylaxis for planned intervention. #13. CODE status: Patient SHANIA is his who is present and living will is currently in place. Discussed CODE status at length including difference between FULL code, DNR-CCA and DNR-CC status. Following discussions about the differences in these status, requested Full Code status. Advanced Care Planning Face to Face Time: 16 minutes. Charges/Coding Visit Charges Inpatient E&M: 83950 Init Hosp L3 Procedures Hospitalists Procedures: 93879 Advncd Care Plan 30 Min
[2022-06-15] MEDS: HYDROmorphone 0.5 MG/0.5 ML SYRINGE IV (23:32)
--- NOTE | 2022-06-15 23:45 | RAD_ITS ---
STUDY: X-RAY CHEST REASON FOR EXAM: Male, 72 years old. pre op TECHNIQUE: Single AP portable view of the chest. COMPARISON: None. FINDINGS: The lungs are clear and expanded. There is no demonstrated pleural abnormality. Normal size heart. Normal mediastinum and lazara. Normal visualized pulmonary arteries. Normal visualized aortic arch and descending thoracic aorta. Normal visualized thoracic spine. Normal visualized ribs, clavicles, and shoulders. There is no demonstrated abnormality of the visualized soft tissue structures of the upper abdomen. RAD/Chest 1 View (Portable) IMPRESSION: Normal x-ray examination of the chest. Electronically Signed: Rodney Tate DO at 0:12 EDT ,
[2022-06-15 23:53] VITALS: BP 105/60; PULSE 65; RESP 15; TEMP 37.1; O2SAT 97
[2022-06-16] VITALS (14 sets, daily range): BP systolic 93–138; BP diastolic 63–92; PULSE 55–93; RESP 16–18; TEMP 36.6–37.3; O2SAT 93–98; BMI 32.5
[2022-06-16 00:26] LABS: International Normalized Ratio 1.4
[2022-06-16] MEDS: Famotidine 20 MG Tablet PO ×2 (01:57→09:03)
[2022-06-16] MEDS: Morphine 4 MG/ML Syringe IV ×3 (01:57→08:01)
[2022-06-16] MEDS: 0.9% Normal Saline 1,000 ML 100 ML IV (01:57)
[2022-06-16 02:41] LABS: ALB/GLOB Ratio 1.1 RATIO (0.9-2.4); AST(SGOT) 15 U/L (15-37); Alanine Aminotransfer ALT/SGPT 8 U/L (16-61); Albumin, Serum 3.4 g/dL (3.2-5.0); Alkaline Phosphatase 60 U/L (45-117); Anion Gap 6 (5-15); BUN 32 mg/dL (7-18); BUN/Creat Ratio 37.9 RATIO (10-20); Calcium,Total 8.3 mg/dL (8.5-10.1); Chloride 110 mmol/L (98-107); Creatinine, Serum 0.84 mg/dL (0.70-1.30); EST Glomerular Filtration Rate 96 mL/min (>60); Est Glom Filt Rate - Afr Amer 116 mL/min (>60); Estimated Creatinine Clearance 92.48 ml/min; Glucose 112 mg/dL (74-106); Potassium 4.2 mmol/L (3.5-5.1); Protein, Total 6.4 g/dL (6.4-8.2); Sodium Level 140 mmol/L (136-145)
[2022-06-16] MEDS: CLARIFY ORDER 1 EACH NOTE (04:52)
[2022-06-16] MEDS: Levothyroxine 100 MCG Tablet 200 MCG PO (04:54)
[2022-06-16] MEDS: CARBIDOPA/LEVODOPA 1 EACH CAPSULE.ER 3 EACH PO ×4 (04:54→18:28)
[2022-06-16] MEDS: Pramipexole Di-HCl 1 MG Tablet PO (04:54)
[2022-06-16 06:03] LABS: Absolute Lymphocyte Count 2.32 X10^3/uL (0.83-4.51); Absolute Neutrophil Count 9.6 X10^3/uL (2.0-7.7); Basophil# 0.04 X10^3/uL; Basophil% 0.3 % (0-1); Eosinophil# 0.04 X10^3/uL; Eosinophils% 0.3 % (0-5); Hemoglobin 12.3 g/dL (13.0-16.5); Lymphocyte # 2.32 X10^3/ul (0.83-4.51); Lymphocyte % 17.8 % (19-41); Mean Corp Hgb Conc 31.5 g/dL (32-36); Mean Corpuscular Hgb 30.7 pg (27.0-32.0); Mean Corpuscular Volume 97.3 fL (80-94); Mean Platelet Vol. 9.3 fl (6.2-12.0); Monocyte# 0.96 X10^3/uL; Monocyte% 7.4 % (0-10); NRBC Flagged by Analyzer 0 % (0-5); Neutrophil # 9.62 X10^3/uL (2.7-7.7); Neutrophil % 73.8 % (47-70); Platelet Count 262 K/mm3 (150-450); RBC Distribution Width CV 13.7 % (11.6-14.6); RBC Distribution Width SD 48.8 fl (35.1-43.9); Red Blood Count 4.01 M/mm3 (4.6-6.2)
[2022-06-16 06:32] LABS: ALB/GLOB Ratio 1.1 RATIO (0.9-2.4); AST(SGOT) 14 U/L (15-37); Alanine Aminotransfer ALT/SGPT 9 U/L (16-61); Albumin, Serum 3.3 g/dL (3.2-5.0); Alkaline Phosphatase 59 U/L (45-117); Anion Gap 4 (5-15); BUN 28 mg/dL (7-18); BUN/Creat Ratio 41.3 RATIO (10-20); Calcium,Total 8.1 mg/dL (8.5-10.1); Chloride 109 mmol/L (98-107); Creatinine, Serum 0.68 mg/dL (0.70-1.30); EST Glomerular Filtration Rate 123 mL/min (>60); Est Glom Filt Rate - Afr Amer 149 mL/min (>60); Estimated Creatinine Clearance 77.68 ml/min; Glucose 102 mg/dL (74-106); Potassium 3.9 mmol/L (3.5-5.1); Protein, Total 6.3 g/dL (6.4-8.2); Sodium Level 139 mmol/L (136-145)
[2022-06-16 06:42] LABS: Thyroid Stim Hormone (TSH) 0.83 uIU/mL (0.358-3.74)
--- NOTE | 2022-06-16 07:50 | CPS ---
RT set up pt's home CPAP w/humidity for comfort.
[2022-06-16] MEDS: Dorzolamide HCL/Timolol 10 ml Bottle 1 DRP EACH EYE ×2 (09:04→21:35)
[2022-06-16] MEDS: Pramipexole Di-HCl 0.5 MG Tablet PO ×2 (09:05→13:38)
--- NOTE | 2022-06-16 09:36 | NURSING ---
ok to give parkinsons meds per dr. givens. or time still stands at 1100. family and pt aware. pt more intense after clipper prep. will give ms when can
--- NOTE | 2022-06-16 10:33 | RAD_ITS ---
STUDY: FLUOROSCOPIC SPOT FILMS OF THE RIGHT HIP OF 1213 HOURS ON 06/16/2022 REASON FOR EXAM: 72-year-old male for internal hip nailing. TECHNIQUE: 3 views of the pelvis and hip. COMPARISON: None. FINDINGS: There is a documentation of surgical bolting of a right hip fracture in anatomic position. There is stabilized with an intramedullary fred in the proximal femur. RAD/Hip 1 view with Pelvis IMPRESSION: Surgical bolting of a right hip fracture in anatomic position--documented with fluoroscopic spot films. Electronically Signed: Aiden Bradley MD at 23:21 EDT ,
--- NOTE | 2022-06-16 10:48 | NURSING ---
consent for rt hip nailing went over and signed. preop checklist and surgery checkin went over with pt. report called to adelina fan. family here for surgery. pt to ac with chart via bed.
[2022-06-16] MEDS: 0.9% Normal Saline 1,000 ML 15 ML IV (10:51)
--- NOTE | 2022-06-16 10:58 | CON.PCM_ITS ---
Assessment & Plan Assessment/Plan (1) Basicervical fracture of neck of right femur: PLAN: Right hip minimally displaced basicervical femoral neck fracture. Natural history of the disease process and treatment options were discussed the patient. Patient's family was at bedside for the entirety of the encounter. Operative and nonoperative treatment options were discussed. At this time nonoperative treatment was not felt to be an appropriate plan. Cephalomedullary nail was discussed with the appropriate treatment option moving forward. Based on the fracture pattern age and overall health of the patient. Risk and benefits of t his procedure were discussed with the patient and family including but not limited to blood loss, DVTs, PEs, nervous damage, infection, the risk of anesthesia including loss of life. We also discussed risk of nonunion, malunion, hardware failure, avascular necrosis and posttraumatic osteoarthritis. Patient demonstrates an understanding wishes to proceed. 2 g of Ancef were ordered on-call to the operating room. Patient is cleared for surgery. We will proceed with surgery this morning. All parties are in agreement and able to sign informed consent at this time. [facility] Office: HPI Consult Data Date of Consult: 06/16/22 HPI Narrative Reason for Consultation: Right hip pain HPI Narrative: JERED ESCOBAR, is a 72 M who presents today after a mechanical fall yesterday. Patient notes he was walking briskly and not paying attention he tripped over a cinder block. He fell onto his right side. He bumped his right elbow with mild pain today. He also skinned up his right thumb and right knee. However his most significant pain is 8 out of 10 in the right hip worse with motion better with immobilization and pain medications. It was 10 out of 10 at the time of injury. He is unable to bear weight. No associated numbness and tingling. Florencio carrizales lives at home with his family. He ambulates without a cane or walker. He denies any gait disturbances from his Parkinson's disease to date. He was admitted by medicine last night and cleared for surgery this morning. Denies any chest pain or shortness of breath at this time. Does report that his CPAP machine relieves some of the pain. Patient denies any antecedent hip pain. [facility] Medical History Anxiety Bladder disease BPH (benign prostatic hyperplasia) Cataract fragments in both eyes following surgery CPAP (continuous positive airway pressure) dependence GERD (gastroesophageal reflux disease) Glaucoma Heartburn History of stress test Hypertension Hypertensive urgency Hypothyroidism Kidney stones Migraines Non-smoker SAUL (obstructive sleep apnea) Parkinsons Prostate disease Sleep apnea Wears glasses Home Medications aspirin 81 mg tablet,delayed release 81 mg PO DAILY@0800 Anticoag 06/26/17 [History Last Taken 04/23/22] bimatoprost 0.03 % drops with applicator, eyelash base 1 drp topical QHS eye drop 06/26/17 [History Last Taken 11/18/19] dorzolamide 22.3 mg-timolol 6.8 mg/mL eye drops 1 drp ophthalmic (eye) BID Eye drops 06/26/17 [History Last Taken 11/18/19] levothyroxine 200 mcg tablet 200 mcg PO DAILY hypothyroid 06/26/17 [History Last Taken 05/01/22] multivitamin 3 tab PO DAILY Supplement 11/19/19 [History Last Taken 11/18/19] lorazepam 1 mg tablet 1 mg PO BID PRN Anxiety #14 tabs 11/21/19 [Rx Last Taken Unknown] carbidopa ER 48.75 mg-levodopa 195 mg capsule,extended release (Rytary) 3 cap PO 4XD SHAKES 04/24/22 [History Last Taken 05/01/22] carbidopa ER 50 mg-levodopa 200 mg tablet,extended release 1 tab PO QHS 04/24/22 [History Last Taken Unknown] lisinopril 10 mg tablet 10 mg PO DAILY BP 04/24/22 [History Last Taken 05/01/22] rasagiline 1 mg tablet 1 mg PO DAILY SHAKES 04/24/22 [History Last Taken 06/15/22 04:30] verapamil 300 mg capsule 24hr pellet CT,ext.release 300 mg PO DAILY BP 04/24/22 [History Last Taken 05/01/22] netarsudil 0.02 % eye drops 1 drp LEFT EYE QPM eyes 05/01/22 [History Last Taken Unknown] pramipexole 0.5 mg tablet (Mirapex) 0.5 mg PO BID SHAKES 05/01/22 [History Last Taken Unknown] pramipexole 1 mg tablet (Mirapex) 1 mg PO DAILY PARKINSONS 05/01/22 [History Last Taken 06/15/22 04:30] Allergy/AdvReac Type Severity Reaction Status Date / Time varicella virus vaccine live Allergy Swelling Verified 06/15/22 21:51 [From Varivax (PF)] Family History Father Cancer Esophageal Diabetes Mother Diabetes Family History no significant family his Surgical History Fusion of lumbar spine History of eye surgery History of thyroidectomy, subtotal Hx of bladder repair surgery Hx of colonoscopy Social History household members: spouse Smoking Status: Never smoker alcohol intake: never substance use type: does not use ROS Constitutional Constitutional: Reports systems reviewed and no addt'l complaints, except as documented Eyes Eyes: Reports systems reviewed and no addt'l complaints, except as documented ENT HEENT: Reports systems reviewed and no addt'l complaints, except as documented Cardiovascular Cardiovascular: Reports systems reviewed and no addt'l complaints, except as documented Respiratory/Chest Respiratory/Chest: Reports systems reviewed and no addt'l complaints, except as documented Gastrointestinal Gastrointestinal: Reports systems reviewed and no addt'l complaints, except as d ocumented Genitourinary Genitourinary: Reports systems reviewed and no addt'l complaints, except as documented Musculoskeletal Musculoskeletal: Reports systems reviewed and no addt'l complaints, except as documented Integumentary Integumentary: Reports other Details: Abrasion on right thumb and right knee. Neurologic Neurologic: Reports systems reviewed and no addt'l complaints, except as documented Psychiatric Psychiatric: Reports systems reviewed and no addt'l complaints, except as documented Endocrine Endocrinology: Reports systems reviewed and no addt'l complaints, except as documented Hematologic/Lymphatic Hematologic/Lymphatic: Reports systems reviewed and no addt'l complaints, except as documented Allergic/Immunologic Allergic/Immunologic: Reports systems reviewed and no addt'l complaints, except as documented Physical Exam Const alert, oriented x3 and no apparent distress General Appearance: cooperative and comfortable HEENT normocephalic Eyes PERRL Neck No nuchal rigidity Resp normal respiratory effort Cardio Cardio Narrative: Regular pulse rate GI non-distended Extremity Extremity Narrative: Right lower extremity: Skin clean, dry, and intact. Pain with logroll. Lower extremity edema. Motor is intact dorsiflexion, EHL and plantar flexion. Sensation is intact to light touch saphenous, hodan,l superficial peroneal, deep peroneal and tibial distributions. Calves are soft and supple. Skin Skin Narrative: 2 cm abrasion over the anterior knee. Abrasion over dorsal thumb. Neuro oriented x3 and moves all extremities Psych mental status grossly normal Medical Records Data Attestation: I reviewed the patient's medical records Lab / Micro Data Attestation: I reviewed the patient's lab results. Lab results narrative: Chest x-ray, hip x-ray and cervical spine results were reviewed. Patient has a minimally displaced basicervical right femoral neck fracture. Result Diagrams: 06/16/22 05:05 06/16/22 05:05 Labs: Laboratory Results - last 24 hr 06/15/22 22:15: WBC 8.6, RBC 4.25 L, Hgb 13.2, Hct 41.9, MCV 98.6 H, MCH 31.1, MCHC 31.5 L, RDW Std Deviation 50.0 H, RDW Coeff of Madisyn 13.7, Plt Count 308, MPV 9.2, Immature Gran % (Auto) 0.500, Neut % (Auto) 72.2 H, Lymph % (Auto) 18.8 L, Addison % (Auto) 7.3, Eos % (Auto) 0.9, Baso % (Auto) 0.3, Absolute Neuts (auto) 6.2, Absolute Lymphs (auto) 1.62, Nucleated RBC % 0 06/15/22 22:15: Sodium 141, Potassium 4.0, Chloride 109 H, Carbon Dioxide 27.0, Anion Gap 5, BUN 32 H, Creatinine 1.03, Estim Creat Clear Calc 75.42, Est GFR (MDRD) Af Amer 92, Est GFR (MDRD) Non-Af 76, BUN/Creatinine Ratio 31.1 H, Glucose 120 H, Calcium 8.4 L 06/15/22 23:35: PT 17.0 H, INR 1.4 06/16/22 02:10: Sodium 140, Potassium 4.2, Chloride 110 H, Carbon Dioxide 24.0, Anion Gap 6, BUN 32 H, Creatinine 0.84, Estim Creat Clear Calc 92.48, Est GFR (MDRD) Af Amer 116, Est GFR (MDRD) Non-Af 96, BUN/Creatinine Ratio 37.9 H, Glucose 112 H, Calcium 8.3 L, Total Bilirubin 0.40, AST 15, ALT 8 L, Alkaline Phosphatase 60, Total Protein 6.4, Albumin 3.4, Globulin 3.0, Albumin/Globulin Ratio 1.1 06/16/22 05:05: WBC 13.0 H, RBC 4.01 L, Hgb 12.3 L, Hct 39.0 L, MCV 97.3 H, MCH 30.7, MCHC 31.5 L, RDW Std Deviation 48.8 H, RDW Coeff of Madisyn 13.7, Plt Count 262, MPV 9.3, Immature Gran % (Auto) 0.400, Neut % (Auto) 73.8 H, Lymph % (Auto) 17.8 L, Addison % (Auto) 7.4, Eos % (Auto) 0.3, Baso % (Auto) 0.3, Absolute Neuts (auto) 9.6 H, Absolute Lymphs (auto) 2.32, Nucleated RBC % 0 06/16/22 05:05: Sodium 139, Potassium 3.9, Chloride 109 H, Carbon Dioxide 26.0, Anion Gap 4 L, BUN 28 H, Creatinine 0.68 L, Estim Creat Clear Calc 77.68, Est GFR (MDRD) Af Amer 149, Est GFR (MDRD) Non-Af 123, BUN/Creatinine Ratio 41.3 H, Glucose 102, Calcium 8.1 L, Total Bilirubin 0.40, AST 14 L, ALT 9 L, Alkaline Phosphatase 59, Total Protein 6.3 L, Albumin 3.3, Globulin 3.0, Albumin/Globulin Ratio 1.1 06/16/22 05:05: TSH 0.83 06/16/22 05:05: Blood Type O POSITIVE, Antibody Screen NEGATIVE Micro: Microbiology 06/16/22 02:45 Nasal Secretion SARS-CoV-2 Antigen (Rapid) - Final Rhythm Strip Rhythm Strip: Sinus Rhythm Rate: 56 Ectopy: None Radiology Impression Brain CT 06/15/22 22:04 IMPRESSION: Chronic involutional changes of the brain. Electronically Signed: Rodney Tate DO at 23:08 EDT Reading Location ID and State: [facility] / [place] Tel , Service support , Cervical Spine CT 06/15/22 22:04 IMPRESSION: Multilevel degenerative changes, as described above. Electronically Signed: Rodney Tate DO at 23:08 EDT Reading Location ID and State: [facility] / [place] Tel , Service support , Hip/Pelvis X-Ray 06/15/22 22:30 IMPRESSION: As above Electronically Signed: Rodney Tate DO at 23:09 EDT Reading Location ID and State: [facility] / [place] Tel , Service support , Chest X-Ray 06/15/22 23:45 IMPRESSION: Normal x-ray examination of the chest. Electronically Signed: Rodney Tate DO at 0:12 EDT Reading Location ID and State: [facility] / [place] Tel , Service support ,
--- NOTE | 2022-06-16 11:11 | OP.PCM_ITS ---
Report of Operation Date of Procedure: 06/16/22 Pre-Operative Diagnosis: Right basicervical femoral neck hip fracture Post-Operative Diagnosis: Right basicervical femoral neck hip fracture Surgery/Procedure Performed:: Right hip nail Description of Surgical Findings:: Stable reduction Surgeon: Dameon Turner history faculty member: None Type of Anesthesia: Spinal Anesthesiologist: Alfredo Perrin Special Medications: 2 g Ancef Estimated Blood Loss (mL): 200 Fluids Replaced: 1000 mL crystalloid Description of Procedure: Components used: 1. [employer] InterTAN short nail 10 mm, 125 degree neck angle 2. [employer] InterTAN lag screw 100 mm 3. [employer] 32.5 millimeter interlocking screw Procedure: On the date of the procedure the patient's r hip was marked in the preoperative area and patient was taken back to the operating room. Anesthetic was administered and patient was transferred to the table were all bony prominence identified well-padded and the ipsilateral arm was placed across the chest. Patient was then translated down to the perineal post and the operative leg was placed in the boot while the nonoperative leg was lowered and secured. The operative leg was placed in traction and internal rotation and live fluoroscopy was used to verify adequate reduction. The operative leg was then prepped in a sterile fashion with chlorhexidine while the surgeon scrubbed. Upon reentering the room the operative extremity was draped in the standard orthopedic fashion. Skin incision was marked and a timeout was called. Everyone agreed upon the side, the site, the procedure be performed, patient's identity, and antibiotics given. Skin incision was made and the position of the entry guidepin was verified using live fluoroscopy. Once we were satisfied with our position the pin was advanced in the soft tissue protector was placed over the pin. The entry reamer was then advanced into the proximal portion of the femur. A guidewire was placed down the intramedullary canal and fluoroscopy was used to verify that the anterior cortex had not been breached distally as well as satisfactory distal positioning. We then used live fluoroscopy to verify the length of the nail and a [employer] InterTAN short 10 mm 125 degree neck angle hip nail was selected. The nail was then attached to the inserter promotional item and inserted into the intramedullary canal. The appropriate depth was verified and the skin incision for the lag screw was made. The lag screw guidepin was then placed under live fluoroscopy and when a satisfactory position was obtained the length of the screw was measured and the standard technique to drill for the lag screws was performed. The anti-rotation bar was used. At this time a 100 mm lag screw was selected with its corresponding compression screw. The lag screw was then passed and traction was left off the leg. The compression screw was then passed and the fracture was compressed. The final position of the lag screw was verified under fluoroscopy. Attention was then turned to the distal portion of the nail and the distal interlocking guide and fluoroscopy were used to place the distal interlocking screw and a 32.5 mm mm distal interlocking screw was placed using this technique. Live fluoroscopy was used to verify the position of the interlocking screw and the final position of the hip components. Once we were satisfied with our positioning the wounds were copiously irrigated out with normal saline skin was closed with 2-0 Vicryl and alonzo for final skin closure. A sterile dressing was placed with Xeroform. Patient was then awakened by anesthesia transferred from the fracture table back to their hospital bed and transferred to the PACU for recovery. Postoperative plan: Patient will be weight-bear as tolerated. Aspirin 81 mg twice a day for DVT prophylaxis with thigh-high stockings. Follow up in the office in 2 weeks. Complications none Admit VTE Documentation VTE Present on Admission: No VTE Mechan Device Prophylaxis: SCD's and Thigh High ASHLEE Hose VTE Pharm Prophylaxis ordered?: Yes
[2022-06-16] MEDS: Cefazolin 2 GM in 0.9% Normal Saline 100 ML IV (11:36)
--- NOTE | 2022-06-16 12:30 | RAD_ITS ---
STUDY: AP PELVIS AND RIGHT HIP X-RAY SERIES--2 VIEWS 1255 HOURS ON 06/16/2022 REASON FOR EXAM: 72-year-old male post-operative for a right hip orthopedic procedure. TECHNIQUE: 2 views of the pelvis and hip. COMPARISON: None. FINDINGS: 2 surgical screws and a short proximal intramedullary fred and are noted to secure a right femoral neck fracture in anatomic position. There is no dislocation of the femoral head. There is evidence of a mild right joint effusion, mild soft tissue swelling, and mild subcutaneous emphysema lateral to the right hip. There is no evidence of pelvic bone or other hip fractures. RAD/Hip Min 2 Views (Portable) IMPRESSION: 1. Orthopedic stabilization of a right femoral neck fracture in anatomic position. 2. No dislocation of the femoral head. 3. No evidence of fractures or dislocations. 4. Associated soft tissue swelling, joint effusion, and subcutaneous emphysema. Electronically Signed: Aiden Bradley MD at 19:41 EDT ,
--- NOTE | 2022-06-16 14:04 | PCM.PN.HOSP ---
Subjective Subjective Patient reports he is sore but his pain is under control. He reports he was told he is going to the OR today at 11. Currently comfortable with current medications. Hopeful to go home tomorrow if possible. Objective Data Objective Data Vital Signs: Vital Signs Temp Pulse Resp BP Pulse Ox O2 Del Method 98.0 F 93 16 122/67 H 96 Room Air 06/16/22 13:29 06/16/22 13:29 06/16/22 13:29 06/16/22 13:29 06/16/22 13:29 06/16/22 13:29 Oxygen Delivery Method Room Air Weight: 112 kg Body Mass Index (BMI) 32.5 Intake & Output: Intake and Output for Last 24 Hours 06/14/22 06/15/22 06/16/22 23:59 23:59 23:59 Intake Total 1060 / 1060 Output Total 575 / 575 Balance 485 / 485 Lab / Micro Data Result Diagrams: 06/16/22 05:05 06/16/22 05:05 Labs: Laboratory Results - last 24 hr 06/15/22 22:15: WBC 8.6, RBC 4.25 L, Hgb 13.2, Hct 41.9, MCV 98.6 H, MCH 31.1, MCHC 31.5 L, RDW Std Deviation 50.0 H, RDW Coeff of Madisyn 13.7, Plt Count 308, MPV 9.2, Immature Gran % (Auto) 0.500, Neut % (Auto) 72.2 H, Lymph % (Auto) 18.8 L, Mariposa % (Auto) 7.3, Eos % (Auto) 0.9, Baso % (Auto) 0.3, Absolute Neuts (auto) 6.2, Absolute Lymphs (auto) 1.62, Nucleated RBC % 0 06/15/22 22:15: Sodium 141, Potassium 4.0, Chloride 109 H, Carbon Dioxide 27.0, Anion Gap 5, BUN 32 H, Creatinine 1.03, Estim Creat Clear Calc 75.42, Est GFR (MDRD) Af Amer 92, Est GFR (MDRD) Non-Af 76, BUN/Creatinine Ratio 31.1 H, Glucose 120 H, Calcium 8.4 L 06/15/22 23:35: PT 17.0 H, INR 1.4 06/16/22 02:10: Sodium 140, Potassium 4.2, Chloride 110 H, Carbon Dioxide 24.0, Anion Gap 6, BUN 32 H, Creatinine 0.84, Estim Creat Clear Calc 92.48, Est GFR (MDRD) Af Amer 116, Est GFR (MDRD) Non-Af 96, BUN/Creatinine Ratio 37.9 H, Glucose 112 H, Calcium 8.3 L, Total Bilirubin 0.40, AST 15, ALT 8 L, Alkaline Phosphatase 60, Total Protein 6.4, Albumin 3.4, Globulin 3.0, Albumin/Globulin Ratio 1.1 06/16/22 05:05: WBC 13.0 H, RBC 4.01 L, Hgb 12.3 L, Hct 39.0 L, MCV 97.3 H, MCH 30.7, MCHC 31.5 L, RDW Std Deviation 48.8 H, RDW Coeff of Madisyn 13.7, Plt Count 262, MPV 9.3, Immature Gran % (Auto) 0.400, Neut % (Auto) 73.8 H, Lymph % (Auto) 17.8 L, Mariposa % (Auto) 7.4, Eos % (Auto) 0.3, Baso % (Auto) 0.3, Absolute Neuts (auto) 9.6 H, Absolute Lymphs (auto) 2.32, Nucleated RBC % 0 06/16/22 05:05: Sodium 139, Potassium 3.9, Chloride 109 H, Carbon Dioxide 26.0, Anion Gap 4 L, BUN 28 H, Creatinine 0.68 L, Estim Creat Clear Calc 77.68, Est GFR (MDRD) Af Amer 149, Est GFR (MDRD) Non-Af 123, BUN/Creatinine Ratio 41.3 H, Glucose 102, Calcium 8.1 L, Total Bilirubin 0.40, AST 14 L, ALT 9 L, Alkaline Phosphatase 59, Total Protein 6.3 L, Albumin 3.3, Globulin 3.0, Albumin/Globulin Ratio 1.1 06/16/22 05:05: TSH 0.83 06/16/22 05:05: Blood Type O POSITIVE, Antibody Screen NEGATIVE Micro: Microbiology 06/16/22 02:45 Nasal Secretion SARS-CoV-2 Antigen (Rapid) - Final Radiography Diagnostic Testing: Radiology Impression Brain CT 06/15/22 22:04 IMPRESSION: Chronic involutional changes of the brain. Electronically Signed: Rodney Tate DO at 23:08 EDT , Cervical Spine CT 06/15/22 22:04 IMPRESSION: Multilevel degenerative changes, as described above. Electronically Signed: Rodney Tate DO at 23:08 EDT , Hip/Pelvis X-Ray 06/15/22 22:30 IMPRESSION: As above Electronically Signed: Rodney Tate DO at 23:09 EDT , Chest X-Ray 06/15/22 23:45 IMPRESSION: Normal x-ray examination of the chest. Electronically Signed: Rodney Tate DO at 0:12 EDT , Rhythm Strip Rhythm Strip: Sinus Rhythm Rate: 56 Ectopy: None Physical Exam Const alert, oriented x3, no apparent distress, healthy appearing and well nourished Constitutional Narrative: Obese, older white male lying in bed flat, appears comfortable, nontoxic, at bedside HEENT head/scalp atraumatic and moist oral mucous membranes HEENT Narrative: Mallampati 3, no thrush Resp normal respiratory effort, no retractions, no use of accessory muscles and clear to auscultation bilaterally Auscultation: Negative for crackles, rales, rhonchi or wheezes Cardio regular rate, regular rhythm, S1 normal heart sound, S2 normal heart sound, no murmurs, no rub, no gallops, no clicks and no JVD GI normal to inspection, nondistended, normoactive bowel sounds, soft to palpation, non-tender and non-distended Extremity no clubbing, cyanosis or edema Extremity Narrative: Right lower extremity is shortened and externally rotated Neuro oriented x3, CN's II-XII intact bilaterally, no focal motor deficits and no sensory deficits noted Neuro Narrative: Decreased movement right lower extremity secondary to pain all other extremities with normal and symmetrical movement Speech: speech normal Psych affect normal Psych Narrative: Very pleasant Assessment & Plan Assessment/Plan (1) Basicervical fracture of neck of right femur: (2) Leukocytosis: PLAN: Plan Nondisplaced complete right femoral neck fracture status post mechanical fall -OR today -Hold aspirin -PT/OT after surgery -DVT prophylaxis per surgery -Weightbearing status per surgery Leukocytosis -Suspect reactive -We will continue to monitor -Would expect increased tomorrow potentially with surgery today. Parkinson's disease -Continue home medications -Physical and Occupational Therapy consults for gait training with fracture prior to discharge postoperatively Hypothyroidism -Continue Synthroid COPD -As needed albuterol -Patient is not on any medications -No PFTs noted GERD -Documented history but not on any chronic medications -Continue famotidine Hypertension -Continue verapamil, lisinopril -As needed hydralazine Hyperlipidemia -Not on an outpatient regimen -Will defer to outpatient management BPH -Patient not on chronic medication -Monitor for postoperative retention SAUL -Continue nightly CPAP Anxiety/depression -Continue home as needed medications Obesity -Complicates treatment, prognosis, outcomes -Recommend weight loss DVT prophylaxis -SCDs -Chemoprophylaxis per orthopedic surgery CODE STATUS -Full code Charges/Coding Visit Charges Inpatient E&M: 95297 Subs Hosp L2
[2022-06-16] MEDS: Acetaminophen 500 MG Tablet 1000 MG PO ×2 (14:40→21:43)
[2022-06-16] MEDS: oxyCODONE 5 MG Tablet PO ×2 (14:40→18:29)
[2022-06-16] MEDS: Aspirin 81 MG TAB.CHEW PO (18:28)
[2022-06-16] MEDS: Ensure Surgery 237 ML LIQUID PO (18:29)
[2022-06-16] MEDS: Cefazolin 1 GM/50 ML BAG IV (20:02)
[2022-06-16] MEDS: 0.9% Saline Lock 10 ML Syringe IV (20:02)
[2022-06-16] MEDS: NETARSUDIL MESYLATE 1 DRP OPHTHALMIC (21:35)
[2022-06-16] MEDS: Senna/Docusate Sodium 1 Tablet 2 TABLET PO (21:38)
[2022-06-16] MEDS: CARBIDOPA/LEVODOPA CR 50/200 Tablet PO (21:39)
[2022-06-16] MEDS: MELATONIN 3 MG TABLET PO (21:43)
[2022-06-16] MEDS: LORazepam 1 MG Tablet PO (21:43)
[2022-06-16] MEDS: Latanoprost 0.005% 1 Bottle 1 DRP EACH EYE (21:44)
[2022-06-17 02:00] VITALS: BP 153/93; PULSE 60; RESP 18; TEMP 36.8; O2SAT 98
[2022-06-17] MEDS: Cefazolin 1 GM/50 ML BAG IV (04:26)
[2022-06-17] MEDS: Pramipexole Di-HCl 1 MG Tablet PO (04:27)
[2022-06-17] MEDS: CARBIDOPA/LEVODOPA 1 EACH CAPSULE.ER 3 EACH PO ×3 (04:28→13:45)
[2022-06-17] MEDS: Acetaminophen 500 MG Tablet 1000 MG PO ×2 (06:14→13:45)
[2022-06-17] MEDS: Levothyroxine 100 MCG Tablet 200 MCG PO (06:14)
[2022-06-17] MEDS: oxyCODONE 5 MG Tablet PO (06:24)
[2022-06-17 06:27] LABS: Absolute Lymphocyte Count 1.22 X10^3/uL (0.83-4.51); Absolute Neutrophil Count 9.3 X10^3/uL (2.0-7.7); Basophil# 0.02 X10^3/uL; Basophil% 0.2 % (0-1); Hematocrit 39.9 % (40-54); Hemoglobin 12.6 g/dL (13.0-16.5); Lymphocyte # 1.22 X10^3/ul (0.83-4.51); Lymphocyte % 10.7 % (19-41); Mean Corp Hgb Conc 31.6 g/dL (32-36); Mean Corpuscular Hgb 30.5 pg (27.0-32.0); Mean Corpuscular Volume 96.6 fL (80-94); Mean Platelet Vol. 9.1 fl (6.2-12.0); Monocyte# 0.81 X10^3/uL; Monocyte% 7.1 % (0-10); NRBC Flagged by Analyzer 0 % (0-5); Neutrophil # 9.34 X10^3/uL (2.7-7.7); Neutrophil % 81.7 % (47-70); Platelet Count 263 K/mm3 (150-450); RBC Distribution Width CV 13.5 % (11.6-14.6); RBC Distribution Width SD 48.2 fl (35.1-43.9); Red Blood Count 4.13 M/mm3 (4.6-6.2); White Blood Count 11.4 K/mm3 (4.4-11.0)
[2022-06-17 07:02] LABS: Anion Gap 6 (5-15); BUN 22 mg/dL (7-18); BUN/Creat Ratio 31.4 RATIO (10-20); Calcium,Total 8.7 mg/dL (8.5-10.1); Chloride 104 mmol/L (98-107); EST Glomerular Filtration Rate 119 mL/min (>60); Est Glom Filt Rate - Afr Amer 143 mL/min (>60); Estimated Creatinine Clearance 77.68 ml/min; Glucose 129 mg/dL (74-106); Potassium 4.1 mmol/L (3.5-5.1); Sodium Level 138 mmol/L (136-145)
--- NOTE | 2022-06-17 07:18 | PCM.PN.ORT ---
Subjective Subjective Patient is doing well. Pain under control. No chest pain or shortness of breath. No acute events overnight. Patient does report this morning that he has a father who had significant blood clots related to malignancy and surgeries to the best of his knowledge. He does not think there is any other history of spontaneous or significant DVTs in the family. 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 Objective Data Objective Data Vital Signs: Vital Signs Temp Pulse Resp BP Pulse Ox O2 Del Method 98.2 F 60 18 153/93 H 98 Room Air 06/17/22 02:00 06/17/22 02:00 06/17/22 02:00 06/17/22 02:00 06/17/22 02:00 06/17/22 02:00 Oxygen Delivery Method Room Air Weight: 246 lb 14.684 oz Body Mass Index (BMI) 32.5 Intake & Output: Intake and Output for Last 24 Hours 06/15/22 06/16/22 06/17/22 23:59 23:59 23:59 Intake Total 1470 / 1710 290 / 290 Output Total 875 / 1325 900 / 900 Balance 595 / 385 -610 / -610 Lab / Micro Data Attestation: I reviewed the patient's lab results. Result Diagrams: 06/17/22 Unknown 06/17/22 Unknown Labs: Laboratory Results - last 24 hr 06/16/22 05:05: Blood Type O POSITIVE, Antibody Screen NEGATIVE 06/17/22 : WBC 11.4 H, RBC 4.13 L, Hgb 12.6 L, Hct 39.9 L, MCV 96.6 H, MCH 30.5, MCHC 31.6 L, RDW Std Deviation 48.2 H, RDW Coeff of Madisyn 13.5, Plt Count 263, MPV 9.1, Immature Gran % (Auto) 0.300, Neut % (Auto) 81.7 H, Lymph % (Auto) 10.7 L, [place] % (Auto) 7.1, Eos % (Auto) 0.0, Baso % (Auto) 0.2, Absolute Neuts (auto) 9.3 H, Absolute Lymphs (auto) 1.22, Nucleated RBC % 0 06/17/22 : Sodium 138, Potassium 4.1, Chloride 104, Carbon Dioxide 28.0, Anion Gap 6, BUN 22 H, Creatinine 0.70, Estim Creat Clear Calc 77.68, Est GFR (MDRD) Af Amer 143, Est GFR (MDRD) Non-Af 119, BUN/Creatinine Ratio 31.4 H, Glucose 129 H, Calcium 8.7 Micro: Microbiology 06/16/22 02:45 Nasal Secretion SARS-CoV-2 Antigen (Rapid) - Final Radiography Diagnostic Testing: Radiology Impression Hip/Pelvis X-Ray 06/16/22 10:33 IMPRESSION: Surgical bolting of a right hip fracture in anatomic position--documented with fluoroscopic spot films. Electronically Signed: Aiden Bradley MD at 23:21 EDT , Hip X-Ray 06/16/22 12:30 IMPRESSION: 1. Orthopedic stabilization of a right femoral neck fracture in anatomic position. 2. No dislocation of the femoral head. 3. No evidence of fractures or dislocations. 4. Associated soft tissue swelling, joint effusion, and subcutaneous emphysema. Electronically Signed: Aiden Bradley MD at 19:41 EDT , Rhythm Strip Rate: 56 Physical Exam Const alert, oriented x3 and no apparent distress Resp normal respiratory effort Effort and Inspection: able to speak in complete sentences Extremity Extremity Narrative: Right lower extremity: Proximal dressing is clean dry and intact. Distal dressing does have spotting roughly half dollar in size does not appear to be expanding Sensations intact to light touch saphenous, sural, superficial peroneal, deep peroneal, and tibial distributions Motors intact EHL, DF, PF calves are soft and supple Assessment & Plan Assessment/Plan (1) Basicervical fracture of neck of right femur: PLAN: Postop day 1 right hip cephalomedullary nail Pain control: Per primary service recommend Tylenol and NSAIDs as first-line, narcotics as needed currently well controlled DVT prophylaxis: Aspirin 81 mg twice daily. Patient has no personal history of DVTs. He has a father who had it related to malignancy we discussed this. He is going to check and see if there is any other significant family history. If not aspirin to be sufficient upon discharge. Therapy: Weightbearing as tolerated, activity as tolerated we will see how response to therapy to determine intensiveness of therapy on discharge Dressing: Discontinue dressing on postop day 5. Change dressings as needed. Patient may shower with current dressing on. Disposition: Per primary service. Patient orthopedically stable. Appears medically stable at this time. Recommend follow-up in the office in 2 weeks after surgery. Remove dressing postop day 5 leave open to air if clean and dry. Cristine can be removed on postop day 12. Aspirin 81 mg twice daily for DVT prophylaxis for 4 weeks. Please call orthopedics for any further questions or concerns [facility] Office:
[2022-06-17 08:34] VITALS: BP 129/80; PULSE 105; RESP 16; TEMP 36.6; O2SAT 99
[2022-06-17] MEDS: Ensure Surgery 237 ML LIQUID PO (08:48)
[2022-06-17] MEDS: Aspirin 81 MG TAB.CHEW PO (08:48)
[2022-06-17] MEDS: Pramipexole Di-HCl 0.5 MG Tablet PO ×2 (08:48→13:45)
[2022-06-17] MEDS: Dorzolamide HCL/Timolol 10 ml Bottle 1 DRP EACH EYE (09:55)
[2022-06-17] MEDS: Senna/Docusate Sodium 1 Tablet 2 TABLET PO (09:56)
[2022-06-17] MEDS: VERAPAMIL HCL 300 MG CAP24H.PCT PO (09:56)
[2022-06-17] MEDS: Lisinopril 10 MG Tablet PO (09:57)
--- NOTE | 2022-06-17 10:24 | CASEMGMT ---
Social Work SW met with pt and and introduced self and role of SW. Met for assessment and to discuss discharge plan. Pt is A/O at this time and answers some questions and defers others to his . appropriately. Care providers and pharmacy verified at this time. 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 Pt has a living will and a health care POA naming his Ludy Antunez. Documents are on file. LNOK: Ludy Antunez Living Arrangements: Pt lives at home with his in a one story home with 4 steps with handrails to enter. Pt is independent with ADLs. Pt continues to work. Transportation: Pt does not drive. Pt's provides needed transportation DME: Pt has a walker that was his mother in laws. If pt needs a walker at discharge it may benefit him to get a new one that fits correctly. HHC/SNF: pt was previously in [facility]. No previous home health or SNF Plan: SW spoke with pt regarding discharge plan. Pt and do no feel pt can return home at this time and will need rehabilitation prior to returning home. SW provided pt with list of IRF providers including quality and resource use data and consistent with the patient's preferred geographic region, medical needs and insurance network. Pt preferred provider is [facility]. Referral to Julia in [facility] and they are able to accept pt. Precert to be started at this time. Pt and made aware that [facility] can accept pt and precert will be needed prior to d/c. Pt agreeable to d/c plan. [facility] Inpatient Rehab Unit, pending precert. ANNETTE Freitas
--- NOTE | 2022-06-17 12:32 | PCM.PN.HOSP ---
Subjective Subjective Follow-up on postop medical management/acute right femoral neck fracture: Patient was seen and examined. His pain is fairly controlled. He worked with PT and OT earlier on. Objective Data Objective Data Vital Signs: Vital Signs Temp Pulse Resp BP Pulse Ox O2 Del Method 97.8 F 105 H 16 129/80 H 99 Room Air 06/17/22 08:34 06/17/22 08:34 06/17/22 08:34 06/17/22 08:34 06/17/22 08:34 06/17/22 09:01 Oxygen Delivery Method Room Air Weight: 112 kg Body Mass Index (BMI) 32.5 Intake & Output: Intake and Output for Last 24 Hours 06/15/22 06/16/22 06/17/22 23:59 23:59 23:59 Intake Total 1470 / 1710 290 / 290 Output Total 875 / 1325 1250 / 1250 Balance 595 / 385 -960 / -960 Lab / Micro Data Result Diagrams: 06/17/22 Unknown 06/17/22 Unknown Labs: Laboratory Results - last 24 hr 06/17/22 : WBC 11.4 H, RBC 4.13 L, Hgb 12.6 L, Hct 39.9 L, MCV 96.6 H, MCH 30.5, MCHC 31.6 L, RDW Std Deviation 48.2 H, RDW Coeff of Madisyn 13.5, Plt Count 263, MPV 9.1, Immature Gran % (Auto) 0.300, Neut % (Auto) 81.7 H, Lymph % (Auto) 10.7 L, [place] % (Auto) 7.1, Eos % (Auto) 0.0, Baso % (Auto) 0.2, Absolute Neuts (auto) 9.3 H, Absolute Lymphs (auto) 1.22, Nucleated RBC % 0 06/17/22 : Sodium 138, Potassium 4.1, Chloride 104, Carbon Dioxide 28.0, Anion Gap 6, BUN 22 H, Creatinine 0.70, Estim Creat Clear Calc 77.68, Est GFR (MDRD) Af Amer 143, Est GFR (MDRD) Non-Af 119, BUN/Creatinine Ratio 31.4 H, Glucose 129 H, Calcium 8.7 Micro: Microbiology 06/16/22 02:45 Nasal Secretion SARS-CoV-2 Antigen (Rapid) - Final Radiography Diagnostic Testing: Radiology Impression Hip/Pelvis X-Ray 06/16/22 10:33 IMPRESSION: Surgical bolting of a right hip fracture in anatomic position--documented with fluoroscopic spot films. Electronically Signed: Aiden Bradley MD at 23:21 EDT , Hip X-Ray 06/16/22 12:30 IMPRESSION: 1. Orthopedic stabilization of a right femoral neck fracture in anatomic position. 2. No dislocation of the femoral head. 3. No evidence of fractures or dislocations. 4. Associated soft tissue swelling, joint effusion, and subcutaneous emphysema. Electronically Signed: Aiden Bradley MD at 19:41 EDT , Rhythm Strip Rhythm Strip: Sinus Rhythm Rate: 56 Ectopy: None Physical Exam Narrative Physical exam: General: Alert, Oriented x3, Cooperative, sitting up in a chair, HEENT: Atraumatic Oral: Moist Mucosa Neck: Supple Lungs: Clear to auscultation Cardiovascular: HS I+II, regular, no murmurs Abdomen: Bowel Sounds Present, Soft, Non Tender Extremities: No edema, in thigh-high ASHLEE hoses, dressing over the right hip with cooling mat over the hip Skin: No rashes, No breakdown Neurological: Grossly intact Psych/Mental Status: Appropriate Assessment & Plan Assessment/Plan (1) Basicervical fracture of neck of right femur: (2) Leukocytosis: PLAN: Plan 1. POD #1 status post right cephalomedullary nailing for acute nondisplaced complete right femoral neck fracture Status post mechanical fall, traumatic Continue on pain regimen per orthopedic surgery PT and OT to evaluate and treat Social work/case management for discharge planning 2. Parkinson's disease, continue Sinemet, pramipexole, rasagiline 3. Hypertension, controlled, continue on lisinopril, hydralazine as needed, verapamil 4. Rest of chronic medical conditions including hypothyroidism, COPD/GERD/BPH, SAUL on CPAP/anxiety/depression Remained stable, home meds reviewed 5. DVT prophylaxis?aspirin twice daily per orthopedic surgery Charges/Coding Visit Charges Inpatient E&M: 81779 Subs Hosp L2
[2022-06-17 13:34] VITALS: BP 122/71; PULSE 74; RESP 16; TEMP 36.4; O2SAT 93
--- NOTE | 2022-06-17 14:21 | DCINST_ITS ---
Discharge Instructions Diet Discharge Diet: Low fat / Low cholesterol and 2000 mg Sodium Diet Activity Discharge Activity: Return to Normal Activity Weight Bearing Status: Weight bearing as tolerated Follow Up Care Test Results: Test results from this visit will be discussed in further detail at your follow- up appointment, if applicable. Discharge Plan Admission Admit Date/Time: 06/15/22 23:32 Attending Provider: Gemma Vasquez Primary Care Provider: Zana Vásquez Consulting Providers: Dameon Turner ; Zari Corbett ; Nehal Che Instructions Additional Instructions / Restrictions: Discontinue dressing on postop day 5.? Change dressings as needed.? Patient may shower with current dressing on. Recommend follow-up in the office in 2 weeks after surgery.? Remove dressing postop day 5 leave open to air if clean and dry.? [place] can be removed on postop day 12.? Aspirin 81 mg twice daily for DVT prophylaxis for 4 weeks. Discharge Orders/Prescriptions Prescriptions: New acetaminophen 500 mg Tablet 1,000 mg PO Q8 Qty: 0 0RF aspirin 81 mg Tablet,Chewable 81 mg PO BIDCM Qty: 0 0RF Ensure Surgery 0.08-1.4 gram-kcal/mL Liquid 237 ml PO TIDCM Qty: 0 0RF sennosides-docusate sodium [Stool Softener-Stimulant Laxat] 8.6-50 mg Tablet 2 tab PO BID 30 Days Qty: 0 0RF pramipexole 0.5 mg Tablet 0.5 mg PO 1330 30 Days Qty: 30 0RF oxycodone 5 mg Tablet 2.5 - 5 mg PO Q4H PRN PRN (Reason: Pain Score 4-10) Qty: 0 0RF Continued dorzolamide-timolol 1 DROP bottle 1 drp ophthalmic (eye) BID Label Comments: glaucoma medication Rx Instructions: LEFT EYE ONLY levothyroxine 200 MCG tablet 200 mcg PO DAILY Label Comments: hypothyroidism bimatoprost 1 DROP bottle 1 drp topical QHS Label Comments: glaucoma medication Rx Instructions: LEFT EYE multivitamin 1 EACH tablet 3 tab PO DAILY lorazepam 1 MG tablet 1 mg PO BID PRN (Reason: Anxiety) Qty: 14 0RF carbidopa-levodopa 50-200 mg Tablet Extended Release 1 tab PO QHS lisinopril 10 mg Tablet 10 mg PO DAILY verapamil 300 mg Capsule, [address] 300 mg PO DAILY rasagiline 1 mg Tablet 1 mg PO DAILY Rx Instructions: GIVEN AT 0430 EVERY MORNING Rytary 48.75-195 mg Capsule, Extended Release 3 cap PO 4XD Rx Instructions: GIVEN AT 0430, 0900, 1330 & 1830 pramipexole [Mirapex] 1 mg Tablet 1 mg PO DAILY Rx Instructions: GIVE AT 0430 DAILY pramipexole [Mirapex] 0.5 mg Tablet 0.5 mg PO BID Rx Instructions: GIVEN AT 0900 & 1330 netarsudil 0.02 % Drops 1 drp LEFT EYE QPM Discontinued aspirin 81 MG tablet 81 mg PO DAILY@0800 Hold Instructions: Resume on 05/08/22. Label Comments: heart health Referrals / Follow Up: Zana Vásquez MD [Primary Care Provider] - Within 1 Week Disposition Disposition (needs filled in before D/C Order can be placed): Inpatient Rehab Unit/Facility
--- NOTE | 2022-06-17 14:26 | PCM.DC.SUM ---
Providers Date of Admission: 06/15/22 Date of Discharge: 06/17/22 Primary Care Physician: Dr. Zana Vásquez MD Consultations 06/16/22 01:38 Consult: Orthopedics Routine Consulting Provider: Dameon Turner Reason for Consult: Fall, R hip fracture EMERGENT Consult: No MD Notified: Yes Date Notified: 06/15/22 Time Notified: 23:35 Method of Notification: ED Physician Initiated Reason For Visit: FALL, R HIP FRACTURE Diagnosis Discharge Diagnosis (1) Basicervical fracture of neck of right femur: Status: Acute Code(s): S72.041A - Displaced fracture of base of neck of right femur, initial encounter for closed fracture (2) Leukocytosis: Status: Acute Code(s): D72.829 - Elevated white blood cell count, unspecified Medications at Discharge Home Medications bimatoprost 0.03 % drops with applicator, eyelash base 1 drp topical QHS eye drop 06/26/17 dorzolamide 22.3 mg-timolol 6.8 mg/mL eye drops 1 drp ophthalmic (eye) BID Eye drops 06/26/17 levothyroxine 200 mcg tablet 200 mcg PO DAILY hypothyroid 06/26/17 multivitamin 3 tab PO DAILY Supplement 11/19/19 lorazepam 1 mg tablet 1 mg PO BID PRN Anxiety #14 tabs 11/21/19 carbidopa ER 48.75 mg-levodopa 195 mg capsule,extended release (Rytary) 3 cap PO 4XD SHAKES 04/24/22 carbidopa ER 50 mg-levodopa 200 mg tablet,extended release 1 tab PO QHS 04/24/22 lisinopril 10 mg tablet 10 mg PO DAILY BP 04/24/22 rasagiline 1 mg tablet 1 mg PO DAILY SHAKES 04/24/22 verapamil 300 mg capsule 24hr pellet CT,ext.release 300 mg PO DAILY BP 04/24/22 netarsudil 0.02 % eye drops 1 drp LEFT EYE QPM eyes 05/01/22 pramipexole 0.5 mg tablet (Mirapex) 0.5 mg PO BID SHAKES 05/01/22 pramipexole 1 mg tablet (Mirapex) 1 mg PO DAILY PARKINSONS 05/01/22 acetaminophen 500 mg tablet 1,000 mg PO Q8 #0 tabs 06/17/22 aspirin 81 mg chewable tablet 81 mg PO BIDCM #0 tabs 06/17/22 nut.tx.comp. immune systm,reg 0.08 gram-1.4 kcal/mL oral liquid (Ensure Surgery) 237 ml PO TIDCM #0 mL 06/17/22 oxycodone 5 mg tablet 2.5 - 5 mg PO Q4H PRN PRN Pain Score 4-10 #0 tabs 06/17/22 pramipexole 0.5 mg tablet 0.5 mg PO 1330 30 days #30 tabs 06/17/22 sennosides 8.6 mg-docusate sodium 50 mg tablet (Stool Softener-Stimulant Laxative) 2 tab PO BID 30 days #0 tabs 06/17/22 Hospital Course Operations total hip replacement (right, 06/16/22) Procedures None Summary of Care Provided Minutes Spent on Discharge: 35 Hospital Course: 72-year-old male with past medical history of Parkinson's disease, anxiety/depression, GERD, SAUL on CPAP who presented after mechanical fall. Patient tripped over a cinder block and landed on his right side, hitting his head but did not lose consciousness. He was unable to walk after that. In the ED, CT of the brain was negative. CT of the cervical spine showed chronic degenerative changes. X-ray of the hip showed nondisplaced fracture of the right femoral neck. Patient underwent right hip cephalomedullary nailing on 06/16/22. Postoperatively, patient continued to do well. He was seen by PT and OT and skilled for discharged to acute rehab. Patient will follow up with orthopedics in 2 weeks. Wound instructions attached. He will be on aspirin 81 mg twice daily for DVT prophylaxis. Physical Exam Narrative See progress note of the day Weight / BMI Weight Weight: 112 kg Body Mass Index (BMI) 32.5 ABG / Lab / Microbiology Data Result Diagrams: 06/17/22 Unknown 06/17/22 Unknown Laboratory: Laboratory Results - last 24 hr 06/17/22 : WBC 11.4 H, RBC 4.13 L, Hgb 12.6 L, Hct 39.9 L, MCV 96.6 H, MCH 30.5, MCHC 31.6 L, RDW Std Deviation 48.2 H, RDW Coeff of Madisyn 13.5, Plt Count 263, MPV 9.1, Immature Gran % (Auto) 0.300, Neut % (Auto) 81.7 H, Lymph % (Auto) 10.7 L, [place] % (Auto) 7.1, Eos % (Auto) 0.0, Baso % (Auto) 0.2, Absolute Neuts (auto) 9.3 H, Absolute Lymphs (auto) 1.22, Nucleated RBC % 0 06/17/22 : Sodium 138, Potassium 4.1, Chloride 104, Carbon Dioxide 28.0, Anion Gap 6, BUN 22 H, Creatinine 0.70, Estim Creat Clear Calc 77.68, Est GFR (MDRD) Af Amer 143, Est GFR (MDRD) Non-Af 119, BUN/Creatinine Ratio 31.4 H, Glucose 129 H, Calcium 8.7 Microbiology: Microbiology 06/16/22 02:45 Nasal Secretion SARS-CoV-2 Antigen (Rapid) - Final Radiography Diagnostic Testing: Radiology Impression Hip/Pelvis X-Ray 06/16/22 10:33 IMPRESSION: Surgical bolting of a right hip fracture in anatomic position--documented with fluoroscopic spot films. Electronically Signed: Aiden Bradley MD at 23:21 EDT , Hip X-Ray 06/16/22 12:30 IMPRESSION: 1. Orthopedic stabilization of a right femoral neck fracture in anatomic position. 2. No dislocation of the femoral head. 3. No evidence of fractures or dislocations. 4. Associated soft tissue swelling, joint effusion, and subcutaneous emphysema. Electronically Signed: Aiden Bradley MD at 19:41 EDT , D/C Instructions Discharge Diet: Low fat / Low cholesterol and 2000 mg Sodium Diet Weight Bearing Status: Weight bearing as tolerated Meaningful Use Info Meaningful Use Diagnoses (Choose all that apply): None applicable Discharge Plan Admission Admit Date/Time: 06/15/22 23:32 Primary Reason for Your Visit: Acute right femoral neck fracture Attending Provider: Gemma Vasquez Primary Care Provider: Zana Vásquez Consulting Providers: Dameon Turner ; Zari Corbett ; Nehal Che Instructions Additional Instructions / Restrictions: Discontinue dressing on postop day 5.? Change dressings as needed.? Patient may shower with current dressing on. Recommend follow-up in the office in 2 weeks after surgery.? Remove dressing postop day 5 leave open to air if clean and dry.? Cristine can be removed on postop day 12.? Aspirin 81 mg twice daily for DVT prophylaxis for 4 weeks. Discharge Orders/Prescriptions Prescriptions: New acetaminophen 500 mg Tablet 1,000 mg PO Q8 Qty: 0 0RF aspirin 81 mg Tablet,Chewable 81 mg PO BIDCM Qty: 0 0RF Ensure Surgery 0.08-1.4 gram-kcal/mL Liquid 237 ml PO TIDCM Qty: 0 0RF sennosides-docusate sodium [Stool Softener-Stimulant Laxat] 8.6-50 mg Tablet 2 tab PO BID 30 Days Qty: 0 0RF pramipexole 0.5 mg Tablet 0.5 mg PO 1330 30 Days Qty: 30 0RF oxycodone 5 mg Tablet 2.5 - 5 mg PO Q4H PRN PRN (Reason: Pain Score 4-10) Qty: 0 0RF Continued dorzolamide-timolol 1 DROP bottle 1 drp ophthalmic (eye) BID Label Comments: glaucoma medication Rx Instructions: LEFT EYE ONLY levothyroxine 200 MCG tablet 200 mcg PO DAILY Label Comments: hypothyroidism bimatoprost 1 DROP bottle 1 drp topical QHS Label Comments: glaucoma medication Rx Instructions: LEFT EYE multivitamin 1 EACH tablet 3 tab PO DAILY lorazepam 1 MG tablet 1 mg PO BID PRN (Reason: Anxiety) Qty: 14 0RF carbidopa-levodopa 50-200 mg Tablet Extended Release 1 tab PO QHS lisinopril 10 mg Tablet 10 mg PO DAILY verapamil 300 mg Capsule, [address] 300 mg PO DAILY rasagiline 1 mg Tablet 1 mg PO DAILY Rx Instructions: GIVEN AT 0430 EVERY MORNING Rytary 48.75-195 mg Capsule, Extended Release 3 cap PO 4XD Rx Instructions: GIVEN AT 0430, 0900, 1330 & 1830 pramipexole [Mirapex] 1 mg Tablet 1 mg PO DAILY Rx Instructions: GIVE AT 0430 DAILY pramipexole [Mirapex] 0.5 mg Tablet 0.5 mg PO BID Rx Instructions: GIVEN AT 0900 & 1330 netarsudil 0.02 % Drops 1 drp LEFT EYE QPM Discontinued aspirin 81 MG tablet 81 mg PO DAILY@0800 Hold Instructions: Resume on 05/08/22. Label Comments: heart health Referrals / Follow Up: Zana Vásquez MD [Primary Care Provider] - Within 1 Week Disposition Disposition (needs filled in before D/C Order can be placed): Inpatient Rehab Unit/Facility Charges/Coding Visit Charges Inpatient E&M: 83330 Disch Hosp
--- NOTE | 2022-06-17 14:31 | CASEMGMT ---
Social Work SW received message from Inpatient Rehab that precert has been obtained and pt can be admitted. Pt notified and agreeable to discharge plan. Physician notified and will discharge pt today. [facility] notified that pt is to be discharged today. Nursing updated. Plan: [facility] Inpatient Rehab, today ANNETTE Freitas
== END 2022-06-17 16:39 | DRG 482 ==
LOC: ED 23:57 → MS3 06-16 00:15
PROVIDERS: Anesthesiology; Internal Medicine; Specialist; Admitting Provider Family Medicine; Emergency Provider Emergency Medicine; PCP Family Medicine; Visit Provider Internal Medicine
PROC: 0QS606Z Reposition Right Upper Femur with Intramedullary Internal Fixation Device, Open Approach (ICD-10-PCS; principal; 2022-06-16 11:00)
DX: S72.041A Displaced fracture of base of neck of right femur, initial encounter for closed fracture (principal); Z68.32 Body mass index [BMI] 32.0-32.9, adult; G20 Parkinson's disease; J44.9 Chronic obstructive pulmonary disease, unspecified; I10 Essential (primary) hypertension; W01.10XA Fall on same level from slipping, tripping and stumbling with subsequent striking against unspecified object, initial encounter; E78.5 Hyperlipidemia, unspecified; K21.9 Gastro-esophageal reflux disease without esophagitis; E89.0 Postprocedural hypothyroidism; G47.33 Obstructive sleep apnea (adult) (pediatric); F41.9 Anxiety disorder, unspecified; N40.0 Benign prostatic hyperplasia without lower urinary tract symptoms; F32.A Depression, unspecified; E66.9 Obesity, unspecified; Z98.1 Arthrodesis status; Z79.82 Long term (current) use of aspirin; Z79.899 Other long term (current) drug therapy; Z23 Encounter for immunization
CPT/HCPCS: 36415; 70450; 71045; 72125; 73501; 73502; 76000; 80048; 80053; 84443; 85025; 85610; 86850; 86900; 86901; 87426; 90715; 93005; 97162; 97166; 99251; 99284; C1713; J7030; A4216; G0463; J2405

== ENCOUNTER 2022-06-17 17:04 | Inpatient (IN) | payer OTHER, MEDICARE, SELFPAY ==
[2022-06-17 17:12] VITALS: BP 102/52; PULSE 79; RESP 18; TEMP 37; O2SAT 97; BMI 33.2
--- NOTE | 2022-06-17 17:29 | HP.PCM_ITS ---
[facility] - General General Date of Admission: 06/17/22 Date of Service: 06/17/22 Chief Complaint: Debility secondary to a recent fall resulting in a R hip fracture complicated by the pt suffering from PD. HPI Narrative JERED ESCOBAR, is a 72 YO M with a past medical history of Parkinson's disease, obstructive sleep apnea on CPAP, anxiety/depression, BPH, GERD, glaucoma (has a stent in the R eye to decrease the pressure and has ptosis of t he R eye which is chronic), COPD, hypothyroidism(status post subtotal thyroidectomy),HTN, HLD and obesity who presented to the ED at [facility] on 06/15/22 c/o R hip pain after a fall over a cinder block c/o severe R hip pain and inability to ambulate. He also struck his head during the fall. A noncontrast CT brain showed chronic involutional changes only. CT scan of the cervical spine showed multilevel degenerative changes with no fractures or dislocations. X-ray of the right hip revealed a nondisplaced complete fracture of the right femoral neck without evidence of trochanteric involvement. He was admitted to the hospital and Dr. Hector Turner was consulted to repair the fx. He was taken to surgery on 06/16/22 for placement of a R hip nail. Post-operatively he was seen by PT/OT and admission to acute inpt rehab was recommended. He was transferred to acute inpt rehab on 06/17/22 for 3 hours of therapy daily to restore function/independence at or near his level prior to the fall. 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 All lab, imaging and notes from the acute hospital stay were reviewed. He tells me that his pain is adequately controlled. He had difficulty sleeping last night due to anxiety and this is a chronic problem. He takes a OTC sleep aid he gets from [employer] and a CBD gummy every night to sleep at home. [facility] Medical History (Updated 06/17/22 @ 18:[address] Sheryl López DO) Anxiety Bladder disease BPH (benign prostatic hyperplasia) Cataract fragments in both eyes following surgery GERD (gastroesophageal reflux disease) Glaucoma History of stress test Hypertension Hypothyroidism Kidney stones Migraines Non-smoker SAUL (obstructive sleep apnea) Parkinsons Prostate disease Wears glasses Home Medications bimatoprost 0.03 % drops with applicator, eyelash base 1 drp topical QHS eye drop 06/26/17 [History Last Taken 06/16/22] dorzolamide 22.3 mg-timolol 6.8 mg/mL eye drops 1 drp ophthalmic (eye) BID Eye drops 06/26/17 [History Last Taken 06/17/22] levothyroxine 200 mcg tablet 200 mcg PO DAILY hypothyroid 06/26/17 [History Last Taken 06/17/22] multivitamin 3 tab PO DAILY Supplement 11/19/19 [History Last Taken 11/18/19] lorazepam 1 mg tablet 1 mg PO BID PRN Anxiety #14 tabs 11/21/19 [Rx Last Taken 06/16/22] carbidopa ER 48.75 mg-levodopa 195 mg capsule,extended release (Rytary) 3 cap PO 4XD SHAKES 04/24/22 [History Last Taken 06/17/22 13:45] carbidopa ER 50 mg-levodopa 200 mg tablet,extended release 1 tab PO QHS Check with primary doctor 04/24/22 [History Last Taken 06/16/22] lisinopril 10 mg tablet 10 mg PO DAILY BP 04/24/22 [History Last Taken 06/17/22] rasagiline 1 mg tablet 1 mg PO DAILY SHAKES 04/24/22 [History Last Taken 06/17/22] verapamil 300 mg capsule 24hr pellet CT,ext.release 300 mg PO DAILY BP 04/24/22 [History Last Taken 06/17/22] netarsudil 0.02 % eye drops 1 drp LEFT EYE QPM eyes 05/01/22 [History Last Taken 06/16/22] pramipexole 0.5 mg tablet (Mirapex) 0.5 mg PO BID SHAKES 05/01/22 [History Last Taken 06/17/22] pramipexole 1 mg tablet (Mirapex) 1 mg PO DAILY PARKINSONS 05/01/22 [History Last Taken 06/17/22] acetaminophen 500 mg tablet 1,000 mg PO Q8 Check with primary doctor 06/17/22 [History Last Taken 06/17/22 13:45] aspirin 81 mg chewable tablet 81 mg PO BIDCM Check with primary doctor 06/17/22 [History Last Taken 06/17/22 08:45] nut.tx.comp. immune systm,reg 0.08 gram-1.4 kcal/mL oral liquid (Ensure Surgery) 237 ml PO TIDCM Check with primary doctor 06/17/22 [History Last Taken Unknown] oxycodone 5 mg tablet 2.5 - 5 mg PO Q4H PRN PRN Pain Score 4-10 #0 tabs 06/17/22 [Rx Last Taken 06/17/22 06:25] pramipexole 0.5 mg tablet 0.5 mg PO 1330 Check with primary doctor 06/17/22 [History Last Taken 06/17/22 13:45] sennosides 8.6 mg-docusate sodium 50 mg tablet (Stool Softener-Stimulant Laxative) 2 tab PO BID Check with primary doctor 06/17/22 [History Last Taken 06/17/22] Allergy/AdvReac Type Severity Reaction Status Date / Time varicella virus vaccine live Allergy Swelling Verified 06/15/22 21:51 [From Varivax (PF)] Family History (Updated 06/18/22 @ 10:[address] Sheryl López DO) Father Cancer Esophageal Diabetes VTE (venous thromboembolism) Multiple blood clots every time he went into the hospital. Pt can not recall whether the blood clots started before or after he was diagnosed with esophageal CA. Mother Diabetes Other COPD (chronic obstructive pulmonary disease) Surgical History (Updated 06/17/22 @ 18:[address] Sheryl López DO) Fusion of lumbar spine History of eye surgery History of thyroidectomy, subtotal Hx of bladder repair surgery Hx of colonoscopy Social History (Updated 06/17/22 @ 18:[address] Sheryl López DO) household members: spouse and other details: Spouse's name is Ludy. 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 Smoking Status: Never smoker alcohol intake: never substance use type: does not use ROS Review of Systems ROS Unobtainable: Denies due to encephalopathy, due to endotracheal tube, due to mental condition or due to mental status Constitutional Constitutional: Reports weakness; Denies anorexia, change in weight, chills, fatigue, fever(s) or night sweats Eyes Eyes: Reports blurry vision right (due to Glaucoma and high pressures. He has a drain in the R eye that has caused ptosis but, at least he has some vision in the eye. ) and ptosis; Denies discharge from eye(s) ENT HEENT: Denies abnormal hearing, dysphagia, headache(s), hearing loss, nasal congestion or sore throat Cardiovascular Cardiovascular: Denies chest pain, dyspnea on exertion, edema, lightheadedness, orthopnea, palpitations, paroxysmal nocturnal dyspnea or syncope Respiratory/Chest Respiratory/Chest: Denies cough, dyspnea, shortness of breath at rest, shortness of breath with exertion or wheezing Gastrointestinal Gastrointestinal: Reports other Details: Had a BM today ; Denies abdominal pain, constipation, diarrhea, dyspepsia, hematemesis, hematochezia, nausea or vomiting Genitourinary Genitourinary: Denies dysuria, hematuria, nocturia, urinary frequency, urinary hesitancy, urinary incontinence or urinary urgency Musculoskeletal Musculoskeletal: Reports joint pain and other Details: R hip pain due to fx and subsequent nailing to repair. ; Denies back pain, joint swelling or neck pain Neurologic Neurologic: Denies confusion, disequilibrium, dizziness, focal weakness, headache(s), paresthesias, seizures or tremor(s) Psychiatric Psychiatric: Reports anxiety; Denies depression, homicidal ideation or suicidal ideation Endocrine Endocrinology: Denies change in body appearance, polydipsia or polyuria Hematologic/Lymphatic Hematologic/Lymphatic: Denies easy bleeding, easy bruising or lymphadenopathy Allergic/Immunologic Allergic/Immunologic: Denies rhinitis, eczemia or asthma Vital Signs Vital Signs Vital Signs: 06/17/22 17:12 Temperature 98.6 F Temperature Source Oral Pulse Rate 79 Respiratory Rate 18 Blood Pressure 102/52 L Blood Pressure Mean 68 Blood Pressure Source Monitor Blood Pressure Position Sitting Blood Pressure Location Right Arm Pulse Ox 97 Oxygen Delivery Method Room Air Weight Weight: 251 lb 12.286 oz Body Mass Index (BMI) 33.2 Physical Exam Const alert, oriented x3 and no apparent distress Constitutional Narrative: Making good eye contact, appropriate General Appearance: cooperative, comfortable and well kempt HEENT normocephalic HEENT Narrative: Dry mucous membranes Eyes PERRL, EOMs intact bilaterally, conjunctivae normal and no scleral icterus Eyes Narrative: He has ptosis of the right eye which is chronic. Visual Acuity: other Other Details: Decreased vision in the right eye secondary to glaucoma. Neck no lymphadenopathy, supple, no JVD and no carotid bruits Chest inspection of chest normal Chest: symmetrical chest wall rise Resp normal respiratory effort, no use of accessory muscles and clear to auscultation bilaterally Resp Narrative: Not tachypneic and no conversational dyspnea. Cardio regular rate, regular rhythm, S1 normal heart sound, S2 normal heart sound, no murmurs, no rub, no gallops and peripheral pulses 2+ throughout GI normal to inspection, nondistended, normoactive bowel sounds, soft to palpation and non-tender GI Narrative: No guarding with palpation. Bladder is not distended. Extremity no clubbing, cyanosis or edema and no calf tenderness Extremity Narrative: Negative Gabriel's and Whitney's signs Peripheral Pulses: Yes pulses 2+ throughout Skin Skin Narrative: No rashes, no skin breakdown. The dressing over the R hip is to remain on for 7 days post op. There is a small amount of dried blood on the dressing and it extends a little past the blue line marked on the dressing. Neuro oriented x3, CN's II-XII intact bilaterally, moves all extremities and no focal motor deficits Motor Exam: strength 5/5 throughout Psych mental status grossly normal, thought process normal, cooperative, affect normal, speech normal, activity/motor behavior normal, denies hallucinations and denies suicidal ideation Psych Narrative: Appropriate, making good eye contact. Able to stay on topic and focus. No flight of ideas. Does not appear anxious or depressed. Conversant and relating well to staff. Speech: normal speech Mood & Affect: euthymic mood Results Lab / Micro Data Result Diagrams: 06/18/22 05:22 06/18/22 05:22 Assessment & Plan Assessment/Plan (1) Physical debility: (2) Fall from other slipping, tripping, or stumbling: (3) Basicervical fracture of neck of right femur: (4) History of open reduction and internal fixation (ORIF) procedure: (5) Acute blood loss as cause of postoperative anemia: (6) S/P TURP: PLAN: On 05/01/[address] Martin. 6 clips from a prior urolift were removed at that time as well. (7) Obstructive Sleep Apnea-Hypopnea Syndrome: PLAN: Continue CPAP....pt brought his machine with him to rehab. (8) Parkinsons: (9) Glaucoma: (10) Stage 2 moderate COPD by GOLD classification: (11) Fusion of lumbar spine: (12) BPH (benign prostatic hyperplasia): (13) GERD (gastroesophageal reflux disease): (14) Hypothyroidism: (15) History of thyroidectomy, subtotal: (16) Obesity (BMI 30-39.9): PLAN: Plan PLAN PT for gait stability OT for ADL's ST for evaluation Analgesics as needed Bowel protocol Fall precautions Assess for Anxiety/Depression GI prophylaxis not necessary - no hx of PUD and asymptomatic at this time. Not c/o GERD at this time. DVT prophylaxis with Eliquis 2.5 mg p.o. twice daily. The patient's father had an extensive history of VTE and Jered does not know if the hx preceded the esophageal cancer or not. He has never had a DVT and he denies DVT in siblings but, he is very worried about having a blood clot and it is increasing his anxiety. Dr. Turner is agreeable with the Eliquis. Follow up with Dr. Turner, Dr. Vásquez, neurology and ophthalmology following DC from [facility] Rehab AM lab including CMP, CBC, Mag and Phos ordered for the AM Unit Exclusion This patient is an acute care inpatient being housed in the excluded unit because of capacity issues related to the disaster or emergency.: Yes Charges/Coding Visit Charges Inpatient E&M: 45125 Init Hosp L3
[2022-06-17] MEDS: oxyCODONE 5 MG Tablet PO ×2 (18:32→22:48)
[2022-06-17] MEDS: CARBIDOPA/LEVODOPA 1 EACH CAPSULE.ER 3 EACH PO (18:48)
[2022-06-17 19:15] VITALS: BP 104/49; PULSE 84; RESP 18; TEMP 36.8; O2SAT 98
[2022-06-17] MEDS: Acetaminophen 500 MG Tablet 1000 MG PO (21:28)
[2022-06-17] MEDS: Senna/Docusate Sodium 1 Tablet 2 TABLET PO (21:29)
[2022-06-17] MEDS: CARBIDOPA/LEVODOPA CR 50/200 Tablet PO (21:29)
[2022-06-17] MEDS: APIXABAN 2.5 MG TABLET PO (21:31)
[2022-06-17] MEDS: Latanoprost 0.005% 1 Bottle 1 DRP LEFT EYE (21:32)
[2022-06-17] MEDS: Dorzolamide HCL/Timolol 10 ml Bottle 1 DRP LEFT EYE (21:33)
[2022-06-17] MEDS: NETARSUDIL MESYLATE 1 DRP OPHTHALMIC (21:33)
--- NOTE | 2022-06-17 23:33 | NURSING ---
Pt called staff re;pain to rt hip. While in room pt wondered if his blood pressure had dropped because he felt so tired all of a sudden. VS were wnl. BP was 135/78, HR 82, SpO2 94%, RR 17, and Temp was 97.8. Pt took Oxyir 5mg for 9/10 pain. This RN assisted pt in repositioning for more comfort in bed and provided snack. Will continue to monitor.
--- NOTE | 2022-06-18 01:32 | NURSING ---
Pt questioning dose of Rytary ER states he only takes ER tab once per day between 2129 and 2199. Notified Marielle ESCOBEDO with pt concerns, will leave note for Dr. López with concern.
--- NOTE | 2022-06-18 02:11 | NURSING ---
Reviewed and agree with TRAIN ANNOUNCER documentation and assessment charting.
[2022-06-18] MEDS: Pramipexole Di-HCl 1 MG Tablet PO (04:42)
[2022-06-18] MEDS: CARBIDOPA/LEVODOPA 1 EACH CAPSULE.ER 4 EACH PO ×2 (05:10→09:57)
[2022-06-18 05:28] LABS: Hematocrit 38.8 % (40-54); Hemoglobin 12.2 g/dL (13.0-16.5); Mean Corp Hgb Conc 31.4 g/dL (32-36); Mean Corpuscular Hgb 30.7 pg (27.0-32.0); Mean Corpuscular Volume 97.7 fL (80-94); Mean Platelet Vol. 8.8 fl (6.2-12.0); Platelet Count 263 K/mm3 (150-450); RBC Distribution Width CV 13.6 % (11.6-14.6); RBC Distribution Width SD 49.4 fl (35.1-43.9); Red Blood Count 3.97 M/mm3 (4.6-6.2); White Blood Count 11.5 K/mm3 (4.4-11.0)
[2022-06-18 05:50] LABS: Anion Gap 6 (5-15); BUN 22 mg/dL (7-18); BUN/Creat Ratio 29.7 RATIO (10-20); Calcium,Total 8.3 mg/dL (8.5-10.1); Chloride 106 mmol/L (98-107); Creatinine, Serum 0.74 mg/dL (0.70-1.30); EST Glomerular Filtration Rate 111 mL/min (>60); Est Glom Filt Rate - Afr Amer 134 mL/min (>60); Estimated Creatinine Clearance 77.68 ml/min; Glucose 105 mg/dL (74-106); Potassium 3.8 mmol/L (3.5-5.1); Sodium Level 141 mmol/L (136-145)
[2022-06-18] MEDS: Levothyroxine 100 MCG Tablet 200 MCG PO (06:36)
[2022-06-18] MEDS: Acetaminophen 500 MG Tablet 1000 MG PO ×3 (06:36→21:20)
--- NOTE | 2022-06-18 07:17 | NURSING ---
Pt took off CPAP @ 0215, stating it was making his nose sore. Applied 2L O2, pt wore O2 remaining of this am.
[2022-06-18] MEDS: Multivitamins,Therapeutic Tablet 3 TABLET PO (08:03)
[2022-06-18] MEDS: Pramipexole Di-HCl 0.5 MG Tablet PO ×2 (08:03→13:41)
[2022-06-18] MEDS: Ensure Surgery 237 ML LIQUID PO ×2 (08:04→12:13)
[2022-06-18] MEDS: oxyCODONE 5 MG Tablet PO ×3 (08:19→17:03)
[2022-06-18] MEDS: Lisinopril 10 MG Tablet PO (09:56)
[2022-06-18] MEDS: APIXABAN 2.5 MG TABLET PO ×2 (09:56→20:05)
[2022-06-18] MEDS: Senna/Docusate Sodium 1 Tablet 2 TABLET PO ×2 (09:56→20:08)
[2022-06-18] MEDS: Dorzolamide HCL/Timolol 10 ml Bottle 1 DRP LEFT EYE ×2 (09:56→20:06)
[2022-06-18] MEDS: VERAPAMIL HCL 300 MG CAP24H.PCT PO (09:57)
[2022-06-18 10:00] VITALS: BP 108/52; PULSE 77; RESP 16; TEMP 36.6; O2SAT 96
--- NOTE | 2022-06-18 10:01 | SLEEP ---
Assessed patient's home CPAP device for c/o water coming out the tubing when he tried to use it last night. It appears his humidifier was overfilled. I re-educated him making sure to not fill past the max line on the water chamber. His device filter was dirty so I also changed that, as well as verified his CPAP setting of 14cm as prescribed. He will alert nursing and/or sleep lab if he needs further assistance while in RU.
[2022-06-18] MEDS: Menthol/Lanolin/Calamine/Znox 113 GM Tube 1 APPLIC TOPICAL ×2 (13:41→21:20)
[2022-06-18] MEDS: CARBIDOPA/LEVODOPA 1 EACH CAPSULE.ER 3 EACH PO ×2 (13:43→18:06)
--- NOTE | 2022-06-18 16:04 | CHAPLAIN ---
Type of Pastoral Visit ___ Initial Visit ___ Follow-up Visit ___ On-call Visit ___ General Patient Visit ___ Spiritual Assessment ___ Family Conference ___ Bereavement ___ Rapid Response ___ Code Blue ___ Other (describe below) Pastoral Care Referral From ___ Patient ___ Family ___ Nurse ___ Physician ___ Doctorate Of Chiropractic ___ [employer] Off Bearer ___ Other (describe below) Sacrament/Intervention ___ Active listening ___ Anointing ___ Presybeterian ___ Bereavement ___ Communion ___ Yoanna exploration ___ ___ Life review ___ Prayer ___ Reconciliation ___ Sacrament of Sick ___ Supportive presence ___ Wedding ___ Other (describe below) Pastoral Comments introduced self and role to patient; pt is lying down in bed with eyes closed but awake; pt states that he is very tired after therapy; offered a visit at another time and pt readily agreed to the same
[2022-06-18 19:34] VITALS: BP 127/77; PULSE 71; RESP 16; TEMP 37.1; O2SAT 98
[2022-06-18] MEDS: NETARSUDIL MESYLATE 1 DRP OPHTHALMIC (20:06)
[2022-06-18] MEDS: Latanoprost 0.005% 1 Bottle 1 DRP LEFT EYE (20:09)
[2022-06-18] MEDS: CARBIDOPA/LEVODOPA CR 50/200 Tablet PO (21:20)
[2022-06-18 21:27] VITALS: PULSE 78; RESP 17
[2022-06-19] MEDS: oxyCODONE 5 MG Tablet PO ×2 (03:20→09:21)
[2022-06-19] MEDS: Pramipexole Di-HCl 1 MG Tablet PO (04:55)
[2022-06-19] MEDS: Acetaminophen 500 MG Tablet 1000 MG PO ×3 (05:47→21:30)
[2022-06-19] MEDS: Levothyroxine 100 MCG Tablet 200 MCG PO (05:49)
[2022-06-19] MEDS: CARBIDOPA/LEVODOPA 1 EACH CAPSULE.ER 3 EACH PO ×4 (05:49→17:57)
[2022-06-19] MEDS: Menthol/Lanolin/Calamine/Znox 113 GM Tube 1 APPLIC TOPICAL ×3 (05:50→21:27)
[2022-06-19] MEDS: Multivitamins,Therapeutic Tablet 3 TABLET PO (08:06)
[2022-06-19 08:12] VITALS: BP 142/84; PULSE 61; RESP 16; TEMP 37.2; O2SAT 97
[2022-06-19] MEDS: Senna/Docusate Sodium 1 Tablet 2 TABLET PO ×2 (09:16→21:31)
[2022-06-19] MEDS: Dorzolamide HCL/Timolol 10 ml Bottle 1 DRP LEFT EYE ×2 (09:16→21:28)
[2022-06-19] MEDS: Pramipexole Di-HCl 0.5 MG Tablet PO ×2 (09:17→13:41)
[2022-06-19] MEDS: Lisinopril 10 MG Tablet PO (09:17)
[2022-06-19] MEDS: VERAPAMIL HCL 300 MG CAP24H.PCT PO (09:17)
[2022-06-19] MEDS: APIXABAN 2.5 MG TABLET PO ×2 (09:17→21:32)
--- NOTE | 2022-06-19 11:08 | PCM.PN.BLA ---
Progress Note Afebrile VSS Maintaining appropriate oxygen saturation on RA Oral intake is good Discussed with nursing - no problems that need addressed Reviewed the PT/OT/ST notes Medication list reviewed. Kan is c/o severe pain in the R lateral hip and thigh. He denies pain in the R buttock or distal to the knee. Pain increases with movement. He has been getting 5 mg of Oxycodone about 3 X's a day and tells me that it is not relieving the pain at all. He slept well last night. Denies SOB, CP, palpitations, lightheadedness, dysuria, calf pain. He is glad to be on Eliquis because he is afraid of getting a blood clot. Physical Exam Const alert and oriented x3 Constitutional Narrative: Appears uncomfortable.......just finished with therapy. General Appearance: cooperative Resp Resp Narrative: Clear to auscultation Cardio Cardio Narrative: Regular rate and rhythm, no gallop GI GI Narrative: Soft, nontender, nondistended, normal bowel sounds heard, no guarding with palpation. Extremity Extremity Narrative: No significant ankle edema. No calf pain. Skin Skin Narrative: The incision is intact with no purulent discharge, dg-incisional erythema or increased warmth to touch. Bruising is resolving. Assessment & Plan Assessment/Plan (1) Physical debility: PLAN: Continue PT/OT. (2) Basicervical fracture of neck of right femur: PLAN: Pain control is not adequate and it is impairing his ability to do therapy. 5 mg of oxycodone is not effective in relieving pain. We will increase the oxycodone to 10 mg p.o. every 4 hours as needed for pain. Continue scheduled Tylenol. I reviewed his OARRS report and he has had no prescriptions for any controlled substances in the past 2 years. (3) History of open reduction and internal fixation (ORIF) procedure: PLAN: Continue Eliquis 2.5 mg twice daily for DVT prophylaxis. (4) Acute blood loss as cause of postoperative anemia: PLAN: Hemoglobin is stable. Visit Charges Inpatient E&M: 19597 Subs Hosp L2
[2022-06-19] MEDS: oxyCODONE 5 MG Tablet 10 MG PO ×2 (13:40→17:57)
--- NOTE | 2022-06-19 16:45 | CHAPLAIN ---
Type of Pastoral Visit _x__ Initial Visit ___ Follow-up Visit ___ On-call Visit ___ General Patient Visit ___ Spiritual Assessment ___ Family Conference ___ Bereavement ___ Rapid Response ___ Code Blue ___ Other (describe below) Pastoral Care Referral From _x__ Patient ___ Family ___ Nurse ___ Physician ___ Weathercaster ___ Gauge Controller ___ Other (describe below) Sacrament/Intervention _x__ Active listening ___ Anointing ___ Gnosticism ___ Bereavement ___ Communion _x__ Yoanna exploration ___ _x__ Life review _x__ Prayer ___ Reconciliation ___ Sacrament of Sick _x__ Supportive presence ___ Wedding ___ Other (describe below) Pastoral Comments patient was lying in bed and awake following therapy this afternoon; pt was able to talk and he gave life review and perspective; pt disclosed that he has Parkinsons and his fall resulted in this break/surgery/need for rehab; 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
[2022-06-19 20:36] VITALS: BP 108/60; PULSE 62; RESP 16; TEMP 36.7; O2SAT 95
[2022-06-19] MEDS: NETARSUDIL MESYLATE 1 DRP OPHTHALMIC (21:22)
[2022-06-19] MEDS: Latanoprost 0.005% 1 Bottle 1 DRP LEFT EYE (21:30)
[2022-06-19] MEDS: CARBIDOPA/LEVODOPA CR 50/200 Tablet PO (21:31)
[2022-06-19 22:00] VITALS: PULSE 62; RESP 17; O2SAT 95
--- NOTE | 2022-06-19 23:03 | NURSING ---
francine warning issued at 2054 and pt moved into hallway in wheelchair till warning lifted at 2129.
[2022-06-20] MEDS: oxyCODONE 5 MG Tablet 10 MG PO ×5 (04:27→21:35)
[2022-06-20] MEDS: Pramipexole Di-HCl 1 MG Tablet PO (04:30)
[2022-06-20] MEDS: CARBIDOPA/LEVODOPA 1 EACH CAPSULE.ER 3 EACH PO ×4 (04:30→17:35)
[2022-06-20] MEDS: Menthol/Lanolin/Calamine/Znox 113 GM Tube 1 APPLIC TOPICAL ×3 (04:30→21:09)
[2022-06-20] MEDS: Acetaminophen 500 MG Tablet 1000 MG PO ×3 (06:32→21:03)
[2022-06-20] MEDS: Levothyroxine 100 MCG Tablet 200 MCG PO (06:32)
[2022-06-20 07:36] VITALS: BP 105/66; PULSE 58; RESP 17; TEMP 36.9; O2SAT 95
[2022-06-20] MEDS: Pramipexole Di-HCl 0.5 MG Tablet PO ×2 (09:10→13:32)
[2022-06-20] MEDS: Lisinopril 10 MG Tablet PO (09:10)
[2022-06-20] MEDS: Senna/Docusate Sodium 1 Tablet 2 TABLET PO ×2 (09:10→21:04)
[2022-06-20] MEDS: APIXABAN 2.5 MG TABLET PO ×2 (09:10→21:04)
[2022-06-20] MEDS: Multivitamins,Therapeutic Tablet 3 TABLET PO (09:10)
[2022-06-20] MEDS: Dorzolamide HCL/Timolol 10 ml Bottle 1 DRP LEFT EYE ×2 (09:10→21:05)
[2022-06-20] MEDS: VERAPAMIL HCL 300 MG CAP24H.PCT PO (09:11)
--- NOTE | 2022-06-20 13:31 | CASEMGMT ---
Social Work IDT met with patient and for Team meeting. Discussed patient's progress in PT/OT/SN. Explained [facility] CM insurance with [employer] 06/25 and continued stay is not guaranteed with each review. The goal is for pt to return home with and 17 y.o. granddaughter. 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 Will ReTeam next week. SW to continue to follow for discharge planning. LEYDI MeadowsW
[2022-06-20] MEDS: Polyethylene Glycol 3350 17 GM PACKET PO ×2 (13:33→21:04)
--- NOTE | 2022-06-20 16:45 | PCM.PN.BLA ---
Progress Note Louie was seen on team rounds today. His Ludy was present in the room. Afebrile VSS Maintaining appropriate oxygen saturation on RA Oral intake is good. He is not on I&O's but is eating 75 to 100% of his meals. Discussed with nursing - I got a note from assistant casino shift manager that he is sleeping poorly. He tells me that he wakes up every few hours and does not know why......states it is not pain that awakens him. He has chronic insomnia and uses sleep aid medications OTC at home and CBD gummies. Reviewed the PT/OT notes Medication list reviewed. He did not take any pain medication after 5 PM yesterday and this morning was in pain. He tells me that the 10 mg works better for him. He denies chest pain, shortness of breath, palpitations, lightheadedness, N/V/abdominal pain, dysuria, and cough. Physical Exam Const alert, oriented x3 and no apparent distress Constitutional Narrative: Appears uncomfortable.......just finished with therapy. General Appearance: cooperative, comfortable and well kempt Eyes Eyes Narrative: He has ptosis of the right eye which is chronic. Neck supple Resp normal respiratory effort and clear to auscultation bilaterally Resp Narrative: Clear to auscultation Cardio regular rate, regular rhythm, no murmurs and no gallops GI normal to inspection, nondistended, normoactive bowel sounds, soft to palpation and non-tender GI Narrative: Soft, nontender, nondistended, normal bowel sounds heard, no guarding with palpation. Extremity no calf tenderness Extremity Narrative: No significant ankle edema. No calf pain. Skin Skin Narrative: The incision is intact with no purulent discharge, dg-incisional erythema or increased warmth to touch. Bruising is resolving. Psych cooperative and affect normal Speech: normal speech Mood & Affect: euthymic mood Assessment & Plan Assessment/Plan (1) Physical debility: PLAN: Continue PT/OT. (2) Basicervical fracture of neck of right femur: PLAN: Pain control is not adequate and it is impairing his ability to do therapy. 5 mg of oxycodone is not effective in relieving pain. We will increase the oxycodone to 10 mg p.o. every 4 hours as needed for pain. Continue scheduled Tylenol. I reviewed his OARRS report and he has had no prescriptions for any controlled substances in the past 2 years. (3) History of open reduction and internal fixation (ORIF) procedure: PLAN: Continue Eliquis 2.5 mg twice daily for DVT prophylaxis. (4) Acute blood loss as cause of postoperative anemia: PLAN: Hemoglobin is stable. PLAN: Plan Continue PT/OT. Visit Charges Inpatient E&M: 41900 Subs Hosp L2
[2022-06-20 19:51] VITALS: BP 117/67; PULSE 66; RESP 15; TEMP 36.7; O2SAT 100
[2022-06-20] MEDS: Morphine 4 MG/ML Syringe 2 MG IV (20:27)
[2022-06-20] MEDS: 0.9% Saline Lock 10 ML Syringe IV (20:29)
--- NOTE | 2022-06-20 20:43 | RAD_ITS ---
STUDY: RIGHT HIP AND PELVIS X-RAY SERIES OF 2039 HOURS ON 06/20/2022 REASON FOR EXAM: 72-year-old male with right hip pain. TECHNIQUE: 3 views of the pelvis and right hip. COMPARISON: None. FINDINGS: Mild demineralization. Internal fixation of a right hip fracture with 2 surgical bolts and a proximal right femoral intramedullary fred-- in anatomic position. No dislocation of the right hip joint. No pelvic bone fractures. Evidence of a previous L4-5 laminectomy with pedicle screws and posterior suspension rods. No osteomyelitis or periostitis. Moderate constipation. RAD/HIP, UNI W/ Pelvis 2-3 Views IMPRESSION: 1. Internal fixation right hip fracture with 2 surgical bolts in the proximal right femoral intramedullary ferd--in anatomic position. 2. Previous L4-5 laminectomy with pedicle screws and posterior suspension rods. 3. No new fractures or dislocations. 4. No osteomyelitis or periostitis. 5. Moderate constipation. 6. Mild demineralization. Electronically Signed: Aiden Bradley MD at 23:58 EDT ,
[2022-06-20] MEDS: traZODone 100 MG Tablet PO (21:03)
[2022-06-20] MEDS: CARBIDOPA/LEVODOPA CR 50/200 Tablet PO (21:03)
[2022-06-20] MEDS: Latanoprost 0.005% 1 Bottle 1 DRP LEFT EYE (21:05)
[2022-06-20] MEDS: NETARSUDIL MESYLATE 1 DRP OPHTHALMIC (21:05)
--- NOTE | 2022-06-21 01:13 | NURSING ---
Pt states he heard a popping sound at 6pm and when attempted to move from chair to bed. pt states his hip was more painful and feels stiff. contacted hospitalist and got an order for Iv morphine x1 and hip xray.
[2022-06-21] MEDS: Pramipexole Di-HCl 1 MG Tablet PO (04:34)
[2022-06-21] MEDS: CARBIDOPA/LEVODOPA 1 EACH CAPSULE.ER 3 EACH PO ×4 (04:34→17:57)
[2022-06-21] MEDS: Menthol/Lanolin/Calamine/Znox 113 GM Tube 1 APPLIC TOPICAL ×3 (04:35→20:17)
[2022-06-21] MEDS: Acetaminophen 500 MG Tablet 1000 MG PO ×3 (05:32→20:25)
[2022-06-21] MEDS: oxyCODONE 5 MG Tablet 10 MG PO ×4 (05:33→21:06)
[2022-06-21] MEDS: Levothyroxine 100 MCG Tablet 200 MCG PO (05:33)
[2022-06-21 07:57] VITALS: BP 142/79; PULSE 65; RESP 16; TEMP 36.4; O2SAT 96
[2022-06-21] MEDS: Dorzolamide HCL/Timolol 10 ml Bottle 1 DRP LEFT EYE ×2 (08:05→20:26)
[2022-06-21] MEDS: APIXABAN 2.5 MG TABLET PO ×2 (08:06→20:25)
[2022-06-21] MEDS: Polyethylene Glycol 3350 17 GM PACKET PO ×2 (08:06→20:25)
[2022-06-21] MEDS: Senna/Docusate Sodium 1 Tablet 2 TABLET PO ×2 (08:06→20:26)
[2022-06-21] MEDS: VERAPAMIL HCL 300 MG CAP24H.PCT PO (08:06)
[2022-06-21] MEDS: Lisinopril 10 MG Tablet PO (08:10)
[2022-06-21] MEDS: Multivitamins,Therapeutic Tablet 3 TABLET PO (08:13)
[2022-06-21] MEDS: Pramipexole Di-HCl 0.5 MG Tablet PO ×2 (09:12→14:15)
[2022-06-21] MEDS: NETARSUDIL MESYLATE 1 DRP OPHTHALMIC (20:15)
[2022-06-21] MEDS: Latanoprost 0.005% 1 Bottle 1 DRP LEFT EYE (20:27)
[2022-06-21 20:38] VITALS: BP 109/66; PULSE 67; RESP 16; TEMP 36.8; O2SAT 97
[2022-06-21] MEDS: CARBIDOPA/LEVODOPA CR 50/200 Tablet PO (21:04)
[2022-06-21] MEDS: traZODone 100 MG Tablet PO (21:04)
[2022-06-21] MEDS: LORazepam 1 MG Tablet PO (22:47)
[2022-06-22] MEDS: CARBIDOPA/LEVODOPA 1 EACH CAPSULE.ER 3 EACH PO ×4 (04:57→18:09)
[2022-06-22] MEDS: Pramipexole Di-HCl 1 MG Tablet PO (04:57)
[2022-06-22] MEDS: Menthol/Lanolin/Calamine/Znox 113 GM Tube 1 APPLIC TOPICAL ×3 (05:01→21:38)
[2022-06-22] MEDS: oxyCODONE 5 MG Tablet 10 MG PO ×4 (05:04→19:44)
[2022-06-22] MEDS: Levothyroxine 100 MCG Tablet 200 MCG PO (05:56)
[2022-06-22] MEDS: Acetaminophen 500 MG Tablet 1000 MG PO ×3 (05:56→21:41)
[2022-06-22 07:15] VITALS: BP 97/72; PULSE 63; RESP 18; TEMP 36.4; O2SAT 94
[2022-06-22] MEDS: Multivitamins,Therapeutic Tablet 3 TABLET PO (07:42)
[2022-06-22] MEDS: APIXABAN 2.5 MG TABLET PO ×2 (07:43→21:39)
[2022-06-22] MEDS: Polyethylene Glycol 3350 17 GM PACKET PO ×2 (07:45→21:40)
[2022-06-22] MEDS: Senna/Docusate Sodium 1 Tablet 2 TABLET PO ×2 (07:45→21:41)
[2022-06-22] MEDS: Dorzolamide HCL/Timolol 10 ml Bottle 1 DRP LEFT EYE ×2 (07:47→21:38)
[2022-06-22 08:00] VITALS: BP 83/50; PULSE 68
[2022-06-22] MEDS: Pramipexole Di-HCl 0.5 MG Tablet PO ×2 (09:06→13:49)
[2022-06-22 09:53] VITALS: BP 87/57; PULSE 66
[2022-06-22 19:12] VITALS: BP 118/57; PULSE 76; RESP 16; TEMP 36.2; O2SAT 95
[2022-06-22] MEDS: NETARSUDIL MESYLATE 1 DRP OPHTHALMIC (20:10)
[2022-06-22] MEDS: traZODone 100 MG Tablet PO (21:39)
[2022-06-22] MEDS: CARBIDOPA/LEVODOPA CR 50/200 Tablet PO (21:41)
[2022-06-22] MEDS: Latanoprost 0.005% 1 Bottle 1 DRP LEFT EYE (21:42)
[2022-06-22] MEDS: 0.9% Saline Lock 10 ML Syringe IV (23:07)
[2022-06-22] MEDS: LORazepam 1 MG Tablet PO (23:16)
[2022-06-23] MEDS: Pramipexole Di-HCl 1 MG Tablet PO (04:38)
[2022-06-23] MEDS: oxyCODONE 5 MG Tablet 10 MG PO (04:48)
[2022-06-23] MEDS: Acetaminophen 500 MG Tablet 1000 MG PO ×3 (05:15→22:10)
[2022-06-23] MEDS: CARBIDOPA/LEVODOPA 1 EACH CAPSULE.ER 3 EACH PO ×4 (05:15→18:01)
[2022-06-23] MEDS: Menthol/Lanolin/Calamine/Znox 113 GM Tube 1 APPLIC TOPICAL ×3 (05:16→22:06)
[2022-06-23] MEDS: Levothyroxine 100 MCG Tablet 200 MCG PO (05:16)
[2022-06-23 07:02] VITALS: BP 149/85; PULSE 62; RESP 12; TEMP 36.5; O2SAT 98
[2022-06-23] MEDS: Polyethylene Glycol 3350 17 GM PACKET PO ×2 (08:23→22:08)
[2022-06-23] MEDS: Dorzolamide HCL/Timolol 10 ml Bottle 1 DRP LEFT EYE ×2 (08:23→22:07)
[2022-06-23] MEDS: Multivitamins,Therapeutic Tablet 3 TABLET PO (08:23)
[2022-06-23] MEDS: APIXABAN 2.5 MG TABLET PO ×2 (08:24→22:08)
[2022-06-23] MEDS: Senna/Docusate Sodium 1 Tablet 2 TABLET PO ×2 (08:24→22:10)
[2022-06-23] MEDS: VERAPAMIL HCL 300 MG CAP24H.PCT PO (08:28)
[2022-06-23] MEDS: Lisinopril 10 MG Tablet PO (08:28)
[2022-06-23] MEDS: Pramipexole Di-HCl 0.5 MG Tablet PO ×2 (09:02→13:50)
[2022-06-23] MEDS: 0.9% Saline Lock 10 ML Syringe IV ×2 (13:05→22:17)
[2022-06-23 19:00] VITALS: BP 124/71; PULSE 63; RESP 16; TEMP 36.4; O2SAT 100
[2022-06-23] MEDS: NETARSUDIL MESYLATE 1 DRP OPHTHALMIC (22:05)
[2022-06-23] MEDS: traZODone 100 MG Tablet PO (22:07)
[2022-06-23] MEDS: CARBIDOPA/LEVODOPA CR 50/200 Tablet PO (22:10)
[2022-06-23] MEDS: Latanoprost 0.005% 1 Bottle 1 DRP LEFT EYE (22:11)
--- NOTE | 2022-06-24 01:54 | NURSING ---
REVIEWED AND AGREE WITH WOOD STOCK BLANK HANDLER'S FUNCTIONAL ASSESSMENT AND HANDOFF CHARTING.
[2022-06-24] MEDS: Pramipexole Di-HCl 1 MG Tablet PO (04:49)
[2022-06-24] MEDS: CARBIDOPA/LEVODOPA 1 EACH CAPSULE.ER 3 EACH PO ×4 (04:50→17:25)
[2022-06-24] MEDS: Menthol/Lanolin/Calamine/Znox 113 GM Tube 1 APPLIC TOPICAL ×3 (06:05→20:54)
[2022-06-24] MEDS: Acetaminophen 500 MG Tablet 1000 MG PO ×3 (06:06→21:00)
[2022-06-24] MEDS: Levothyroxine 100 MCG Tablet 200 MCG PO (06:06)
[2022-06-24 07:03] VITALS: BP 145/76; PULSE 67; RESP 18; TEMP 36.4; O2SAT 98
[2022-06-24] MEDS: Dorzolamide HCL/Timolol 10 ml Bottle 1 DRP LEFT EYE ×2 (07:49→20:54)
[2022-06-24] MEDS: Lisinopril 10 MG Tablet PO (07:53)
[2022-06-24] MEDS: Multivitamins,Therapeutic Tablet 3 TABLET PO (07:53)
[2022-06-24] MEDS: APIXABAN 2.5 MG TABLET PO ×2 (07:53→20:53)
[2022-06-24] MEDS: Polyethylene Glycol 3350 17 GM PACKET PO ×2 (07:53→20:55)
[2022-06-24] MEDS: Senna/Docusate Sodium 1 Tablet 2 TABLET PO ×2 (07:53→20:56)
[2022-06-24] MEDS: Pramipexole Di-HCl 0.5 MG Tablet PO ×2 (09:12→13:32)
[2022-06-24] MEDS: VERAPAMIL HCL 300 MG CAP24H.PCT PO (09:13)
[2022-06-24] MEDS: oxyCODONE 5 MG Tablet 10 MG PO ×2 (10:24→17:19)
--- NOTE | 2022-06-24 14:58 | PN_ITS ---
Subjective Subjective Afebrile VSS Maintaining appropriate oxygen saturation on RA Oral intake is good Discussed with nursing - no problems that need addressed Reviewed the PT/OT/ST notes Medication list reviewed. He has not taken any Ativan since 06/22/2022. He has been taking oxycodone 10 mg usually 4 times a day. Louie tells me that he is sleeping better at night. Pain is adequately controlled at the present time. He denies chest pain, shortness of breath, palpitations, lightheadedness, calf pain, nausea/vomiting. He is having regular bowel movements and eating well. Objective Data Objective Data Vital Signs: Vital Signs Temp Pulse Resp BP Pulse Ox O2 Del Method O2 Flow Rate 97.5 F L 67 18 145/76 H 98 Room Air 2 06/24/22 07:03 06/24/22 07:03 06/24/22 07:03 06/24/22 07:03 06/24/22 07:03 06/24/22 07:03 06/22/22 07:15 Oxygen Flow Rate (L/min) 2 Oxygen Delivery Method Room Air Weight: 250 lb 10.649 oz Body Mass Index (BMI) 33.2 Intake & Output: Intake and Output for Last 24 Hours 06/22/22 06/23/22 06/24/22 23:59 23:59 23:59 Intake Total 1360 / 1360 240 / 240 50 / 50 Output Total 800 / 800 775 / 775 Balance 560 / 560 240 / 240 -725 / -725 Lab / Micro Data Result Diagrams: 06/18/22 05:22 06/18/22 05:22 Physical Exam Const alert, oriented x3 and no apparent distress Constitutional Narrative: Appears uncomfortable.......just finished with therapy. General Appearance: cooperative, comfortable and well kempt Eyes Eyes Narrative: He has ptosis of the right eye which is chronic. Chest inspection of chest normal Chest: symmetrical chest wall rise Resp normal respiratory effort, no use of accessory muscles and clear to auscultation bilaterally Cardio regular rate, regular rhythm, no murmurs and no gallops GI normal to inspection, nondistended, normoactive bowel sounds, soft to palpation and non-tender GI Narrative: Soft, nontender, nondistended, normal bowel sounds heard, no guarding with palpation. Extremity no calf tenderness Extremity Narrative: No significant ankle edema. Skin Skin Narrative: The incision is intact with no purulent discharge, dg-incisional erythema or increased warmth to touch. Bruising is resolving. Neuro oriented x3, CN's II-XII intact bilaterally and moves all extremities Psych mental status grossly normal, thought process normal, cooperative, affect normal, speech normal, activity/motor behavior normal, denies hallucinations and denies suicidal ideation Psych Narrative: the staff mentioned that he sometimes says odd things, like burping makes the pain better....meaning the leg pain? He has non sequiturs. Speech: normal speech Mood & Affect: euthymic mood Thought Content: No delusion(s) and No hallucination(s) Assessment & Plan Assessment/Plan (1) Physical debility: PLAN: Continue PT/OT. (2) Basicervical fracture of neck of right femur: PLAN: Pain control is not adequate and it is impairing his ability to do t herapy. 5 mg of oxycodone is not effective in relieving pain. We will increase the oxycodone to 10 mg p.o. every 4 hours as needed for pain. Continue scheduled Tylenol. I reviewed his [place] report and he has had no prescriptions for any controlled substances in the past 2 years. (3) History of open reduction and internal fixation (ORIF) procedure: PLAN: Continue Eliquis 2.5 mg twice daily for DVT prophylaxis for 4 weeks from the date of the surgery. (4) Acute blood loss as cause of postoperative anemia: PLAN: Hemoglobin is stable. PLAN: Plan Continue PT/OT. Charges/Coding Visit Charges Inpatient E&M: 59312 Subs Hosp L2
[2022-06-24 19:25] VITALS: BP 144/66; PULSE 81; RESP 15; TEMP 37.2; O2SAT 96
[2022-06-24] MEDS: NETARSUDIL MESYLATE 1 DRP OPHTHALMIC (20:03)
[2022-06-24] MEDS: traZODone 100 MG Tablet PO (20:54)
[2022-06-24] MEDS: CARBIDOPA/LEVODOPA CR 50/200 Tablet PO (20:56)
[2022-06-24] MEDS: Latanoprost 0.005% 1 Bottle 1 DRP LEFT EYE (20:56)
[2022-06-24 22:00] VITALS: PULSE 81; RESP 16; O2SAT 96
[2022-06-24] MEDS: 0.9% Saline Lock 10 ML Syringe IV (22:34)
[2022-06-25] MEDS: oxyCODONE 5 MG Tablet 10 MG PO ×4 (04:32→18:11)
[2022-06-25] MEDS: Pramipexole Di-HCl 1 MG Tablet PO (04:32)
[2022-06-25] MEDS: 0.9% Saline Lock 10 ML Syringe IV (04:34)
[2022-06-25] MEDS: CARBIDOPA/LEVODOPA 1 EACH CAPSULE.ER 3 EACH PO ×4 (04:41→18:09)
[2022-06-25] MEDS: Levothyroxine 100 MCG Tablet 200 MCG PO (05:27)
[2022-06-25] MEDS: Acetaminophen 500 MG Tablet 1000 MG PO ×3 (05:27→21:48)
[2022-06-25] MEDS: Menthol/Lanolin/Calamine/Znox 113 GM Tube 1 APPLIC TOPICAL ×2 (05:29→20:22)
[2022-06-25 07:56] VITALS: BP 151/85; PULSE 70; RESP 16; TEMP 36.9; O2SAT 98
[2022-06-25] MEDS: Senna/Docusate Sodium 1 Tablet 2 TABLET PO ×2 (08:59→20:25)
[2022-06-25] MEDS: VERAPAMIL HCL 300 MG CAP24H.PCT PO (08:59)
[2022-06-25] MEDS: Pramipexole Di-HCl 0.5 MG Tablet PO ×2 (09:00→13:36)
[2022-06-25] MEDS: Dorzolamide HCL/Timolol 10 ml Bottle 1 DRP LEFT EYE ×2 (09:00→20:25)
[2022-06-25] MEDS: Lisinopril 10 MG Tablet PO (09:00)
[2022-06-25] MEDS: APIXABAN 2.5 MG TABLET PO ×2 (09:00→20:24)
[2022-06-25] MEDS: Multivitamins,Therapeutic Tablet 3 TABLET PO (09:00)
[2022-06-25 19:13] VITALS: BP 147/78; PULSE 72; RESP 16; TEMP 36.6; O2SAT 98
[2022-06-25] MEDS: NETARSUDIL MESYLATE 1 DRP OPHTHALMIC (20:20)
[2022-06-25] MEDS: traZODone 100 MG Tablet PO (20:24)
[2022-06-25] MEDS: Polyethylene Glycol 3350 17 GM PACKET PO (20:24)
[2022-06-25] MEDS: Latanoprost 0.005% 1 Bottle 1 DRP LEFT EYE (20:43)
[2022-06-25] MEDS: CARBIDOPA/LEVODOPA CR 50/200 Tablet PO (21:48)
[2022-06-25 22:00] VITALS: PULSE 55; RESP 16; O2SAT 98
[2022-06-26] MEDS: Pramipexole Di-HCl 1 MG Tablet PO (04:34)
[2022-06-26] MEDS: CARBIDOPA/LEVODOPA 1 EACH CAPSULE.ER 3 EACH PO ×4 (04:35→18:09)
[2022-06-26] MEDS: Menthol/Lanolin/Calamine/Znox 113 GM Tube 1 APPLIC TOPICAL ×2 (05:06→21:26)
[2022-06-26] MEDS: Acetaminophen 500 MG Tablet 1000 MG PO ×3 (05:06→21:43)
[2022-06-26] MEDS: Levothyroxine 100 MCG Tablet 200 MCG PO (05:07)
[2022-06-26 07:32] VITALS: BP 125/77; PULSE 63; RESP 16; TEMP 36.9; O2SAT 95
[2022-06-26] MEDS: VERAPAMIL HCL 300 MG CAP24H.PCT PO (09:01)
[2022-06-26] MEDS: Senna/Docusate Sodium 1 Tablet 2 TABLET PO ×2 (09:02→21:28)
[2022-06-26] MEDS: Multivitamins,Therapeutic Tablet 3 TABLET PO (09:02)
[2022-06-26] MEDS: Dorzolamide HCL/Timolol 10 ml Bottle 1 DRP LEFT EYE ×2 (09:02→21:26)
[2022-06-26] MEDS: Lisinopril 10 MG Tablet PO (09:02)
[2022-06-26] MEDS: APIXABAN 2.5 MG TABLET PO ×2 (09:02→21:28)
[2022-06-26] MEDS: oxyCODONE 5 MG Tablet 10 MG PO (09:02)
[2022-06-26] MEDS: Pramipexole Di-HCl 0.5 MG Tablet PO ×2 (09:02→13:05)
--- NOTE | 2022-06-26 14:05 | PCM.PROGNOTE ---
Subjective Subjective Afebrile VSS Maintaining appropriate oxygen saturation on RA Oral intake is not being followed. He is eating well and has good urine output. Discussed with nursing - He seems to forget that he has taken pain medication and is asking for it more often than he can get it. He does not appear to be in pain....he is not restless/fidgety or grimacing. He is able to do PT and is doing better. Reviewed the PT/OT notes - he is having some difficulty following instructions per the therapists and is having difficulty with memory. He nods off to sleep during the day easily and he is wearing the CPAP at night. therapy wonders if he is being overmedicated. Medication list reviewed. He tells me that he is feeling better and he is sleeping better. Objective Data Objective Data Vital Signs: Vital Signs Temp Pulse Resp BP Pulse Ox O2 Del Method O2 Flow Rate 98.5 F 63 16 125/77 H 95 Room Air 2 06/26/22 07:32 06/26/22 07:32 06/26/22 07:32 06/26/22 07:32 06/26/22 07:32 06/26/22 07:32 06/22/22 07:15 Oxygen Flow Rate (L/min) 2 Oxygen Delivery Method Room Air Weight: 254 lb 3.088 oz Body Mass Index (BMI) 33.2 Intake & Output: Intake and Output for Last 24 Hours 06/24/22 06/25/22 06/26/22 23:59 23:59 23:59 Intake Total 50 / 50 720 / 720 360 / 360 Output Total 775 / 775 Balance -725 / -725 720 / 720 360 / 360 Lab / Micro Data Result Diagrams: 06/18/22 05:22 06/18/22 05:22 Assessment & Plan Assessment/Plan (1) Physical debility: (2) Basicervical fracture of neck of right femur: (3) History of open reduction and internal fixation (ORIF) procedure: (4) Acute blood loss as cause of postoperative anemia: (5) Obstructive Sleep Apnea-Hypopnea Syndrome: (6) Parkinsons: (7) SAUL (obstructive sleep apnea): PLAN: Plan 1. Continue PT/OT 2. PT and OT are concerned about he cognitive function. Will consult ST for cognitive evaluation. 3. Decrease the Oxycodone to 5 mg Q 4H PRN pain 4. Continue Trazodone for sleep/insomnia Charges/Coding Visit Charges Inpatient E&M: 04658 Subs Hosp L2
[2022-06-26] MEDS: NETARSUDIL MESYLATE 1 DRP OPHTHALMIC (21:26)
[2022-06-26] MEDS: traZODone 100 MG Tablet PO (21:27)
[2022-06-26] MEDS: oxyCODONE 5 MG Tablet PO (21:30)
[2022-06-26] MEDS: CARBIDOPA/LEVODOPA CR 50/200 Tablet PO (21:31)
[2022-06-26] MEDS: Latanoprost 0.005% 1 Bottle 1 DRP LEFT EYE (21:43)
[2022-06-26 22:00] VITALS: BP 103/56; PULSE 70; RESP 16; TEMP 36.4; O2SAT 95
[2022-06-27] MEDS: Pramipexole Di-HCl 1 MG Tablet PO (04:45)
[2022-06-27] MEDS: Menthol/Lanolin/Calamine/Znox 113 GM Tube 1 APPLIC TOPICAL ×2 (04:46→13:11)
[2022-06-27] MEDS: Levothyroxine 100 MCG Tablet 200 MCG PO (04:46)
[2022-06-27] MEDS: CARBIDOPA/LEVODOPA 1 EACH CAPSULE.ER 3 EACH PO ×4 (04:47→17:05)
[2022-06-27] MEDS: Acetaminophen 500 MG Tablet 1000 MG PO ×3 (04:47→21:20)
--- NOTE | 2022-06-27 06:29 | NURSING ---
Patient alert and oriented, medications taken without difficulty, prn pain med given at HS with good results. Cpap worn at HS. Patient slept throughout night waking only to use urinal.
[2022-06-27 07:12] VITALS: BP 130/73; PULSE 63; RESP 18; TEMP 36.6; O2SAT 96
[2022-06-27] MEDS: LORazepam 1 MG Tablet PO ×2 (07:53→21:19)
[2022-06-27] MEDS: Multivitamins,Therapeutic Tablet 3 TABLET PO (07:55)
[2022-06-27] MEDS: Polyethylene Glycol 3350 17 GM PACKET PO (08:01)
[2022-06-27] MEDS: Pramipexole Di-HCl 0.5 MG Tablet PO ×2 (08:05→13:02)
[2022-06-27] MEDS: Senna/Docusate Sodium 1 Tablet 2 TABLET PO ×2 (08:06→21:21)
[2022-06-27] MEDS: Lisinopril 10 MG Tablet PO (08:07)
[2022-06-27] MEDS: VERAPAMIL HCL 300 MG CAP24H.PCT PO (08:07)
[2022-06-27] MEDS: Dorzolamide HCL/Timolol 10 ml Bottle 1 DRP LEFT EYE ×2 (08:08→21:19)
[2022-06-27] MEDS: APIXABAN 2.5 MG TABLET PO ×2 (08:10→21:21)
[2022-06-27] MEDS: oxyCODONE 5 MG Tablet PO ×2 (09:53→14:51)
--- NOTE | 2022-06-27 10:17 | PN_ITS ---
Subjective Subjective Kan will be seen on TEAM rounds today. Afebrile VSS-blood pressure is well controlled and the heart rate is within normal limits. Maintaining appropriate oxygen saturation on RA Oral intake is adequate Discussed with nursing - no problems that need addressed Reviewed the PT/OT notes - His ability to do PT and stay focused varies with the time of day.....suspect this is due to the timing of the Parkinson's medications more than the narcotics. Medication list reviewed. Tells me that he slept well last night. He denies any calf pain, shortness of breath, chest pain, palpitations, lightheadedness, nausea/vomiting/abdominal pain, dysuria. there are times during the day when his energy and attention w ane......mid morning, mod afternoon and about 6-7 PM. These times seem to coordinate with the time just prior to the next dose of carbidopa/levodopa. He denies anxiety and is feeling pretty good. Having regular BM's. He has pain in the leg but, it is tolerable now and improves when he sits down and rests. After reviewing the nurses notes I found out that he was incontinent of urine today and he has frequency and urgency. Objective Data Objective Data Vital Signs: Vital Signs Temp Pulse Resp BP Pulse Ox O2 Del Method O2 Flow Rate 97.8 F 63 18 130/73 H 96 Room Air 2 06/27/22 07:12 06/27/22 07:12 06/27/22 07:12 06/27/22 07:12 06/27/22 07:12 06/27/22 07:12 06/22/22 07:15 Oxygen Flow Rate (L/min) 2 Oxygen Delivery Method Room Air Weight: 254 lb 3.088 oz Body Mass Index (BMI) 33.2 Intake & Output: Intake and Output for Last 24 Hours 06/25/22 06/26/22 06/27/22 23:59 23:59 23:59 Intake Total 720 / 720 360 / 360 360 / 360 Balance 720 / 720 360 / 360 360 / 360 Lab / Micro Data Result Diagrams: 06/18/22 05:22 06/18/22 05:22 Physical Exam Narrative Appears comfortable sitting back in the recliner resting prior to his PT session at 11AM. He arouses easily by calling his name. He does not appear anxious. No tremors. He is calm and cooperative. Const oriented x3 HEENT normocephalic Neck supple Resp normal respiratory effort, normal air movement and clear to auscultation bilaterally Cardio regular rate, regular rhythm and no gallops GI normal to inspection, nondistended, normoactive bowel sounds, soft to palpation and non-tender Extremity normal capillary refill and no calf tenderness General Extremity: Negative for edema Skin General Skin Exam: no breakdown Rashes: no rashes Assessment & Plan Assessment/Plan (1) Physical debility: PLAN: Continue therapy. (2) History of open reduction and internal fixation (ORIF) procedure: PLAN: Will follow up with orthospedics. (3) Leukocytosis: (4) Basicervical fracture of neck of right femur: (5) Parkinsons: PLAN: Continue the current drug regimen. I suspect we are getting some increased fatigue due to end of dose failure......will D/W therapy and have them schedule before 9 AM and after 11 AM. (6) Urinary urgency: PLAN: Check a UA. Charges/Coding Visit Charges Inpatient E&M: 30376 Subs Hosp L2
--- NOTE | 2022-06-27 13:30 | CASEMGMT ---
Team meeting held in pt room with pt present. Pt progress in PT/OT were discussed and pt is making significant functional gains. SW informed pt that insurance has authorized continued stay with next review on 07/04/22. Pt is appreciative that more time has been given and feels he is making progress toward goal of independence. Pt plans to return home with his at time of discharge. Will reteam next week. SW to continue to follow for support and d/c planning. ANNETTE Freitsa
[2022-06-27 19:17] VITALS: BP 128/46; PULSE 70; RESP 18; TEMP 36.6; O2SAT 97
[2022-06-27 20:10] VITALS: O2SAT 98
[2022-06-27] MEDS: NETARSUDIL MESYLATE 1 DRP OPHTHALMIC (21:19)
[2022-06-27] MEDS: traZODone 100 MG Tablet PO (21:20)
[2022-06-27] MEDS: CARBIDOPA/LEVODOPA CR 50/200 Tablet PO (21:21)
[2022-06-27] MEDS: Latanoprost 0.005% 1 Bottle 1 DRP LEFT EYE (21:22)
[2022-06-28] MEDS: Pramipexole Di-HCl 1 MG Tablet PO (05:04)
[2022-06-28] MEDS: CARBIDOPA/LEVODOPA 1 EACH CAPSULE.ER 3 EACH PO ×4 (05:05→18:04)
[2022-06-28] MEDS: Levothyroxine 100 MCG Tablet 200 MCG PO (06:04)
[2022-06-28] MEDS: Acetaminophen 500 MG Tablet 1000 MG PO ×3 (06:06→21:41)
[2022-06-28] MEDS: Menthol/Lanolin/Calamine/Znox 113 GM Tube 1 APPLIC TOPICAL ×3 (06:07→21:42)
[2022-06-28 07:47] VITALS: BP 135/91; PULSE 69; RESP 16; TEMP 36.5; O2SAT 95
[2022-06-28] MEDS: Dorzolamide HCL/Timolol 10 ml Bottle 1 DRP LEFT EYE ×2 (09:12→21:42)
[2022-06-28] MEDS: VERAPAMIL HCL 300 MG CAP24H.PCT PO (09:12)
[2022-06-28] MEDS: oxyCODONE 5 MG Tablet PO ×2 (09:13→22:03)
[2022-06-28] MEDS: Pramipexole Di-HCl 0.5 MG Tablet PO ×2 (09:16→13:17)
[2022-06-28] MEDS: Multivitamins,Therapeutic Tablet 3 TABLET PO (09:16)
[2022-06-28] MEDS: Senna/Docusate Sodium 1 Tablet 2 TABLET PO ×2 (09:16→21:41)
[2022-06-28] MEDS: Lisinopril 10 MG Tablet PO (09:17)
[2022-06-28] MEDS: APIXABAN 2.5 MG TABLET PO ×2 (09:17→21:42)
[2022-06-28] MEDS: LORazepam 1 MG Tablet PO (15:53)
[2022-06-28 16:51] LABS: Mucous, Urine 0 SEEN /hpf (<or=2+)
[2022-06-28 16:54] LABS: Color, Urine Yellow (Yellow); Glucose, Dipstick Normal (Normal); Ketone-Dipstick Negative (Negative); Leukocyte Esterase-Dipstick 500 /ul (Negative); Nitrite-Dipstick Negative (Negative); Occult Blood-Urine 50 /ul (Negative); Protein-Dipstick 15 mg/dl (Negative); Urine Bilirubin Dipstick Negative (Negative); Urine Clarity Clear (Clear); Urine Urobilinogen Normal (Normal)
[2022-06-28 17:18] LABS: Bacteria RARE /hpf (None Seen); Red Blood Cells-Urine 10-25 SEEN /hpf (0-5); Squamous Epithelial Cells - UA 0-5 SEEN /hpf (0-5); White Blood Cells 10-25 SEEN /hpf (0-5)
[2022-06-28 19:33] VITALS: BP 146/84; PULSE 72; RESP 16; TEMP 36.2; O2SAT 98
[2022-06-28] MEDS: NETARSUDIL MESYLATE 1 DRP OPHTHALMIC (21:21)
[2022-06-28] MEDS: Latanoprost 0.005% 1 Bottle 1 DRP LEFT EYE (21:41)
[2022-06-28] MEDS: CARBIDOPA/LEVODOPA CR 50/200 Tablet PO (21:41)
[2022-06-28] MEDS: Polyethylene Glycol 3350 17 GM PACKET PO (21:42)
[2022-06-28] MEDS: traZODone 100 MG Tablet PO (21:42)
[2022-06-29] MEDS: CARBIDOPA/LEVODOPA 1 EACH CAPSULE.ER 3 EACH PO ×4 (04:57→17:56)
[2022-06-29] MEDS: Pramipexole Di-HCl 1 MG Tablet PO (04:59)
[2022-06-29] MEDS: Menthol/Lanolin/Calamine/Znox 113 GM Tube 1 APPLIC TOPICAL ×3 (05:59→21:16)
[2022-06-29] MEDS: Acetaminophen 500 MG Tablet 1000 MG PO ×3 (05:59→21:20)
[2022-06-29] MEDS: Levothyroxine 100 MCG Tablet 200 MCG PO (06:00)
[2022-06-29 07:52] VITALS: BP 143/75; PULSE 66; RESP 16; TEMP 37; O2SAT 95
[2022-06-29] MEDS: oxyCODONE 5 MG Tablet PO ×2 (08:09→12:07)
[2022-06-29] MEDS: LORazepam 1 MG Tablet PO ×2 (08:09→21:20)
[2022-06-29] MEDS: Lisinopril 10 MG Tablet PO (08:09)
[2022-06-29] MEDS: Pramipexole Di-HCl 0.5 MG Tablet PO ×2 (08:10→13:25)
[2022-06-29] MEDS: Senna/Docusate Sodium 1 Tablet 2 TABLET PO ×2 (08:10→21:19)
[2022-06-29] MEDS: Multivitamins,Therapeutic Tablet 3 TABLET PO (08:10)
[2022-06-29] MEDS: APIXABAN 2.5 MG TABLET PO ×2 (08:10→21:19)
[2022-06-29] MEDS: Polyethylene Glycol 3350 17 GM PACKET PO (08:11)
[2022-06-29] MEDS: VERAPAMIL HCL 300 MG CAP24H.PCT PO (08:11)
[2022-06-29] MEDS: Dorzolamide HCL/Timolol 10 ml Bottle 1 DRP LEFT EYE ×2 (08:14→21:16)
[2022-06-29 21:09] VITALS: BP 125/70; PULSE 72; RESP 18; TEMP 36.9; O2SAT 97
[2022-06-29] MEDS: NETARSUDIL MESYLATE 1 DRP OPHTHALMIC (21:16)
[2022-06-29] MEDS: Latanoprost 0.005% 1 Bottle 1 DRP LEFT EYE (21:16)
[2022-06-29] MEDS: traZODone 100 MG Tablet PO (21:19)
[2022-06-29] MEDS: CARBIDOPA/LEVODOPA CR 50/200 Tablet PO (21:20)
[2022-06-30] MEDS: CARBIDOPA/LEVODOPA 1 EACH CAPSULE.ER 3 EACH PO ×4 (05:09→17:53)
[2022-06-30] MEDS: Pramipexole Di-HCl 1 MG Tablet PO (05:11)
[2022-06-30] MEDS: Levothyroxine 100 MCG Tablet 200 MCG PO (06:11)
[2022-06-30] MEDS: Acetaminophen 500 MG Tablet 1000 MG PO ×3 (06:13→21:16)
[2022-06-30] MEDS: Menthol/Lanolin/Calamine/Znox 113 GM Tube 1 APPLIC TOPICAL ×3 (06:14→21:17)
[2022-06-30] MEDS: Multivitamins,Therapeutic Tablet 3 TABLET PO (08:28)
[2022-06-30] MEDS: Pramipexole Di-HCl 0.5 MG Tablet PO ×2 (08:29→13:32)
[2022-06-30] MEDS: LORazepam 1 MG Tablet PO ×2 (08:37→21:20)
[2022-06-30] MEDS: VERAPAMIL HCL 300 MG CAP24H.PCT PO (08:39)
[2022-06-30] MEDS: Lisinopril 10 MG Tablet PO (08:39)
[2022-06-30] MEDS: Dorzolamide HCL/Timolol 10 ml Bottle 1 DRP LEFT EYE ×2 (08:40→21:15)
[2022-06-30] MEDS: Senna/Docusate Sodium 1 Tablet 2 TABLET PO ×2 (08:42→21:15)
[2022-06-30] MEDS: APIXABAN 2.5 MG TABLET PO ×2 (08:42→21:15)
[2022-06-30] MEDS: Polyethylene Glycol 3350 17 GM PACKET PO ×2 (08:46→21:16)
[2022-06-30 10:00] VITALS: BP 115/64; PULSE 66; RESP 18; TEMP 36.3; O2SAT 99
[2022-06-30] MEDS: NETARSUDIL MESYLATE 1 DRP OPHTHALMIC (21:12)
[2022-06-30] MEDS: traZODone 100 MG Tablet PO (21:15)
[2022-06-30] MEDS: CARBIDOPA/LEVODOPA CR 50/200 Tablet PO (21:15)
[2022-06-30] MEDS: Latanoprost 0.005% 1 Bottle 1 DRP LEFT EYE (21:16)
[2022-06-30 21:31] VITALS: BP 136/77; PULSE 62; RESP 16; TEMP 36.9; O2SAT 98
[2022-06-30 22:00] VITALS: PULSE 62
[2022-07-01] MEDS: CARBIDOPA/LEVODOPA 1 EACH CAPSULE.ER 3 EACH PO ×3 (04:31→18:32)
[2022-07-01] MEDS: Pramipexole Di-HCl 1 MG Tablet PO (04:40)
[2022-07-01] MEDS: Levothyroxine 100 MCG Tablet 200 MCG PO (06:11)
[2022-07-01] MEDS: Acetaminophen 500 MG Tablet 1000 MG PO ×3 (06:11→21:36)
[2022-07-01] MEDS: Menthol/Lanolin/Calamine/Znox 113 GM Tube 1 APPLIC TOPICAL ×3 (06:12→21:50)
[2022-07-01 07:27] VITALS: BP 102/61; PULSE 77; RESP 16; TEMP 36.8; O2SAT 96
[2022-07-01] MEDS: Pramipexole Di-HCl 0.5 MG Tablet PO ×2 (09:14→13:32)
[2022-07-01] MEDS: APIXABAN 2.5 MG TABLET PO ×2 (09:14→21:36)
[2022-07-01] MEDS: Multivitamins,Therapeutic Tablet 3 TABLET PO (09:14)
[2022-07-01] MEDS: VERAPAMIL HCL 300 MG CAP24H.PCT PO (09:15)
[2022-07-01] MEDS: Senna/Docusate Sodium 1 Tablet 2 TABLET PO ×2 (09:15→21:36)
[2022-07-01] MEDS: Lisinopril 10 MG Tablet PO (09:15)
[2022-07-01] MEDS: Polyethylene Glycol 3350 17 GM PACKET PO ×2 (09:15→21:37)
[2022-07-01] MEDS: Dorzolamide HCL/Timolol 10 ml Bottle 1 DRP LEFT EYE ×2 (09:16→21:46)
[2022-07-01] MEDS: oxyCODONE 5 MG Tablet PO ×3 (09:27→18:37)
--- NOTE | 2022-07-01 10:44 | PN_ITS ---
Subjective Subjective Afebrile VSS Maintaining appropriate oxygen saturation on RA Oral intake is good Discussed with nursing - no problems that need addressed Reviewed the PT/OT notes Medication list reviewed. The UA done last week had RBC's and WBC's in equal amounts and rare bacteria. I elected not to start an antibiotic because he was afebrile. The urine culture had no growth. Kan wanted to discuss the dosing of the PD meds. He had been getting hyper during the day and His neurologist at [facility] decreased the dosage on 2 of the 4 doses he takes a day (he was taking 4 tablets 4 X's a day. This helped but, he still felt a little hyper so he took it upon himself to decrease the dose on the all of 4 doses to 3 tabs. He is wondering if this is why he is feeling so fatigued at around 9 AM and in the early afternoon. Kan denies chest pain, shortness of breath, lightheadedness, palpitations, dysuria, calf pain, constipation. He is sleeping well at night and appetite is good. No cough and no sore throat or nasal congestion. Objective Data Objective Data Vital Signs: Vital Signs Temp Pulse Resp BP Pulse Ox O2 Del Method O2 Flow Rate 98.3 F 77 16 102/61 96 Room Air 2 07/01/22 07:27 07/01/22 07:27 07/01/22 07:27 07/01/22 07:27 07/01/22 07:27 07/01/22 07:27 06/22/22 07:15 Oxygen Flow Rate (L/min) 2 Oxygen Delivery Method Room Air Weight: 254 lb 3.088 oz Body Mass Index (BMI) 33.2 Intake & Output: Intake and Output for Last 24 Hours 06/29/22 06/30/22 07/01/22 23:59 23:59 23:59 Intake Total 1110 / 1110 550 / 550 120 / 120 Output Total 1300 / 1300 1150 / 1150 350 / 350 Balance -190 / -190 -600 / -600 -230 / -230 Lab / Micro Data Result Diagrams: 06/18/22 05:22 06/18/22 05:22 Micro: Microbiology 06/29/22 11:40 Urine, Clean Catch Urine Culture - Preliminary Culture exhibits no growth. Physical Exam Const alert, oriented x3 and no apparent distress General Appearance: cooperative, comfortable and well kempt Eyes PERRL, EOMs intact bilaterally and conjunctivae normal Eyes Narrative: He has ptosis of the right eye which is chronic. Chest Chest: symmetrical chest wall rise Resp normal respiratory effort, normal air movement and clear to auscultation bilaterally Cardio regular rate, regular rhythm, no murmurs and no gallops GI normal to inspection, nondistended, normoactive bowel sounds, soft to palpation and non-tender Extremity no calf tenderness Extremity Narrative: No significant ankle edema. General Extremity: Negative for edema Skin Skin Narrative: The incision is intact with no purulent discharge, dg-incisional erythema or increased warmth to touch. Bruising is resolving. General Skin Exam: no breakdown Rashes: no rashes Psych Psych Narrative: the staff mentioned that he sometimes says odd things, like burping makes the pain better....meaning the leg pain? He has non sequiturs. Speech: normal speech Mood & Affect: euthymic mood Thought Content: No delusion(s) and No hallucination(s) Assessment & Plan Assessment/Plan (1) Physical debility: PLAN: Continue PT/OT. (2) History of open reduction and internal fixation (ORIF) procedure: (3) Acute blood loss as cause of postoperative anemia: (4) Leukocytosis: (5) Basicervical fracture of neck of right femur: (6) Parkinsons: PLAN: 1. Increase the first 3 doses of carbidopa/levodopa to 4 tablets. Continue the other Parkinson's meds as previously ordered. PLAN: Plan 1. Check a CBC without differential, mag, Phos, BMP, albumin in the AM. Charges/Coding Visit Charges Inpatient E&M: 01314 Subs Hosp L2
[2022-07-01] MEDS: CARBIDOPA/LEVODOPA 1 EACH CAPSULE.ER 4 EACH PO (13:33)
[2022-07-01 19:15] VITALS: BP 123/63; PULSE 77; RESP 20; TEMP 36.7; O2SAT 95
[2022-07-01 19:30] VITALS: BP 135/75; PULSE 78
[2022-07-01 21:30] VITALS: PULSE 77; RESP 20; O2SAT 95
[2022-07-01] MEDS: NETARSUDIL MESYLATE 1 DRP OPHTHALMIC (21:34)
[2022-07-01] MEDS: CARBIDOPA/LEVODOPA CR 50/200 Tablet PO (21:36)
[2022-07-01] MEDS: traZODone 100 MG Tablet PO (21:36)
[2022-07-01] MEDS: LORazepam 1 MG Tablet PO (21:45)
[2022-07-01] MEDS: Latanoprost 0.005% 1 Bottle 1 DRP LEFT EYE (22:06)
--- NOTE | 2022-07-02 03:08 | NURSING ---
07/01/2022 @ 1915. Pt spouse alerted staff of pt feeling funny. Staff assessed pt of any status change. Pt sitting in chair and VS WNL, bp- 135/75 & HR- 78. Pt alert with no s/sx of disorientation, but anxiety exhibited, stating he was having a good day and now feels a setback. Pt able to transfer to bed from recliner and got self into bed. Dr Caldwell made aware of pt concerns via voicemail message by previous shift RN. Dr Caldwell called RU and this RN talked to Dr Caldwell. No new orders at this time. Ativan prn provided for anxiety before bed. This nurse has continued to monitor for any changes and thus far has found pt calmly reclining in bed with tv on, CPAP on.
--- NOTE | 2022-07-02 03:58 | NURSING ---
Reviewed and agree with SCRAP PREPARER documentation and assessment charting.
[2022-07-02] MEDS: CARBIDOPA/LEVODOPA 1 EACH CAPSULE.ER 4 EACH PO ×3 (04:39→13:53)
[2022-07-02] MEDS: Pramipexole Di-HCl 1 MG Tablet PO (04:41)
[2022-07-02 05:38] LABS: Hematocrit 37.1 % (40-54); Hemoglobin 11.3 g/dL (13.0-16.5); Mean Corp Hgb Conc 30.5 g/dL (32-36); Mean Corpuscular Hgb 29.9 pg (27.0-32.0); Mean Corpuscular Volume 98.1 fL (80-94); Mean Platelet Vol. 8.4 fl (6.2-12.0); Platelet Count 417 K/mm3 (150-450); RBC Distribution Width CV 13.2 % (11.6-14.6); RBC Distribution Width SD 47.1 fl (35.1-43.9); Red Blood Count 3.78 M/mm3 (4.6-6.2); White Blood Count 6.7 K/mm3 (4.4-11.0)
[2022-07-02 06:04] LABS: Albumin, Serum 3.1 g/dL (3.2-5.0); Anion Gap 5 (5-15); BUN 20 mg/dL (7-18); BUN/Creat Ratio 25.8 RATIO (10-20); Calcium,Total 8.8 mg/dL (8.5-10.1); Chloride 105 mmol/L (98-107); Creatinine, Serum 0.77 mg/dL (0.70-1.30); EST Glomerular Filtration Rate 106 mL/min (>60); Est Glom Filt Rate - Afr Amer 128 mL/min (>60); Estimated Creatinine Clearance 77.68 ml/min; Glucose 103 mg/dL (74-106); Magnesium 2.2 mg/dL (1.6-2.6); Phosphorus 3.7 mg/dL (2.5-4.9); Potassium 4.1 mmol/L (3.5-5.1); Sodium Level 140 mmol/L (136-145)
[2022-07-02] MEDS: Levothyroxine 100 MCG Tablet 200 MCG PO (06:30)
[2022-07-02] MEDS: Acetaminophen 500 MG Tablet 1000 MG PO ×3 (06:30→22:36)
[2022-07-02] MEDS: Menthol/Lanolin/Calamine/Znox 113 GM Tube 1 APPLIC TOPICAL ×3 (06:31→22:39)
[2022-07-02 07:45] VITALS: BP 139/84; PULSE 68; RESP 17; TEMP 36.6; O2SAT 98
[2022-07-02] MEDS: Multivitamins,Therapeutic Tablet 3 TABLET PO (08:25)
[2022-07-02] MEDS: Polyethylene Glycol 3350 17 GM PACKET PO (08:25)
[2022-07-02] MEDS: APIXABAN 2.5 MG TABLET PO ×2 (08:26→22:36)
[2022-07-02] MEDS: Senna/Docusate Sodium 1 Tablet 2 TABLET PO ×2 (08:26→22:36)
[2022-07-02] MEDS: Dorzolamide HCL/Timolol 10 ml Bottle 1 DRP LEFT EYE ×2 (08:26→22:37)
[2022-07-02] MEDS: Lisinopril 10 MG Tablet PO (08:26)
[2022-07-02] MEDS: Pramipexole Di-HCl 0.5 MG Tablet PO ×2 (08:26→13:54)
[2022-07-02] MEDS: VERAPAMIL HCL 300 MG CAP24H.PCT PO (08:27)
--- NOTE | 2022-07-02 10:54 | PN_ITS ---
Subjective Subjective Afebrile VSS Maintaining appropriate oxygen saturation on RA Oral intake is good Discussed with nursing - Kan not infrequently c/o feeling funny to the nurses. He perseverates on his health and anything he thinks is out of the ordinary he notifies nursing. PE and mental status are stable. Reviewed the PT/OT/ST notes Medication list reviewed. All lab today was personally reviewed. White blood cell count today is down to 6.7. Hemoglobin is 11.3, down from 12.2 on 06/18/2022 however he is better hydrated. Platelets are 417,000 which is normal. BMP is unremarkable. Mag, Phos and calcium are all within normal limits. He continues to sleep well. He feels like he is less tired with the increase in the carbidopa /levodopa from 3 tablets to 4 tablets TID. He denies chest pain, shortness of breath, palpitations, lightheadedness, dysuria, nausea/vomiting. Objective Data Objective Data Vital Signs: Vital Signs Temp Pulse Resp BP Pulse Ox O2 Del Method O2 Flow Rate 97.9 F 68 17 139/84 H 98 Room Air 2 07/02/22 07:45 07/02/22 07:45 07/02/22 07:45 07/02/22 07:45 07/02/22 07:45 07/02/22 07:45 06/22/22 07:15 Oxygen Flow Rate (L/min) 2 Oxygen Delivery Method Room Air Weight: 254 lb 3.088 oz Body Mass Index (BMI) 33.2 Intake & Output: Intake and Output for Last 24 Hours 06/30/22 07/01/22 07/02/22 23:59 23:59 23:59 Intake Total 550 / 550 120 / 120 120 / 120 Output Total 1150 / 1150 350 / 350 950 / 950 Balance -600 / -600 -230 / -230 -830 / -830 Lab / Micro Data Result Diagrams: 07/02/22 05:26 07/02/22 05:26 Labs: Laboratory Results - last 24 hr 07/02/22 05:26: WBC 6.7, RBC 3.78 L, Hgb 11.3 L, Hct 37.1 L, MCV 98.1 H, MCH 29.9, MCHC 30.5 L, RDW Std Deviation 47.1 H, RDW Coeff of Madisyn 13.2, Plt Count 417, MPV 8.4 07/02/22 05:26: Sodium 140, Potassium 4.1, Chloride 105, Carbon Dioxide 30.0, Anion Gap 5, BUN 20 H, Creatinine 0.77, Estim Creat Clear Calc 77.68, Est GFR (MDRD) Af Amer 128, Est GFR (MDRD) Non-Af 106, BUN/Creatinine Ratio 25.8 H, Glucose 103, Calcium 8.8, Phosphorus 3.7, Magnesium 2.2, Albumin 3.1 L Micro: Microbiology 06/29/22 11:40 Urine, Clean Catch Urine Culture - Final Culture exhibits no growth. Physical Exam Const alert, oriented x3 and no apparent distress General Appearance: cooperative HEENT moist oral mucous membranes Resp normal respiratory effort and clear to auscultation bilaterally Cardio regular rate, regular rhythm and no gallops GI normal to inspection, nondistended, normoactive bowel sounds, soft to palpation and non-tender Extremity no calf tenderness General Extremity: Negative for edema Skin General Skin Exam: no breakdown Rashes: no rashes Assessment & Plan Assessment/Plan (1) Physical debility: PLAN: Continue PT/OT. (2) Acute blood loss as cause of postoperative anemia: PLAN: Stable (3) History of open reduction and internal fixation (ORIF) procedure: (4) Basicervical fracture of neck of right femur: (5) Parkinsons: PLAN: Continue the current dose of carbidopa/levodopa and he will follow-up with his neurologist at the [facility] post discharge. Charges/Coding Visit Charges Inpatient E&M: 02317 Subs Hosp L1
[2022-07-02] MEDS: CARBIDOPA/LEVODOPA 1 EACH CAPSULE.ER 3 EACH PO (18:07)
[2022-07-02 19:10] VITALS: BP 112/60; PULSE 71; RESP 18; TEMP 36.5; O2SAT 94
[2022-07-02 20:00] VITALS: PULSE 71; RESP 18; O2SAT 94
[2022-07-02] MEDS: NETARSUDIL MESYLATE 1 DRP OPHTHALMIC (20:47)
[2022-07-02] MEDS: CARBIDOPA/LEVODOPA CR 50/200 Tablet PO (22:36)
[2022-07-02] MEDS: traZODone 100 MG Tablet PO (22:36)
[2022-07-02] MEDS: Latanoprost 0.005% 1 Bottle 1 DRP LEFT EYE (22:37)
[2022-07-02] MEDS: LORazepam 1 MG Tablet PO (23:19)
--- NOTE | 2022-07-03 03:39 | NURSING ---
Reviewed and agree with ELECTRONICS COMMODITY MANAGER documentation and assessment charting.
[2022-07-03] MEDS: CARBIDOPA/LEVODOPA 1 EACH CAPSULE.ER 4 EACH PO ×3 (04:17→13:32)
[2022-07-03] MEDS: Pramipexole Di-HCl 1 MG Tablet PO ×2 (04:17→13:32)
[2022-07-03] MEDS: Levothyroxine 100 MCG Tablet 200 MCG PO (06:23)
[2022-07-03] MEDS: Menthol/Lanolin/Calamine/Znox 113 GM Tube 1 APPLIC TOPICAL ×3 (06:23→22:13)
[2022-07-03] MEDS: Acetaminophen 500 MG Tablet 1000 MG PO ×3 (06:23→20:21)
[2022-07-03 07:57] VITALS: BP 138/81; PULSE 66; RESP 17; TEMP 36.4; O2SAT 98
[2022-07-03] MEDS: Pramipexole Di-HCl 0.5 MG Tablet PO ×2 (08:47→13:33)
[2022-07-03] MEDS: Multivitamins,Therapeutic Tablet 3 TABLET PO (08:47)
[2022-07-03] MEDS: Lisinopril 10 MG Tablet PO (08:48)
[2022-07-03] MEDS: APIXABAN 2.5 MG TABLET PO ×2 (08:48→22:11)
[2022-07-03] MEDS: Senna/Docusate Sodium 1 Tablet 2 TABLET PO (08:48)
[2022-07-03] MEDS: Dorzolamide HCL/Timolol 10 ml Bottle 1 DRP LEFT EYE ×2 (08:49→22:11)
[2022-07-03] MEDS: VERAPAMIL HCL 300 MG CAP24H.PCT PO (08:50)
[2022-07-03] MEDS: oxyCODONE 5 MG Tablet PO ×2 (11:57→17:35)
[2022-07-03] MEDS: CARBIDOPA/LEVODOPA 1 EACH CAPSULE.ER 3 EACH PO (18:16)
[2022-07-03] MEDS: NETARSUDIL MESYLATE 1 DRP OPHTHALMIC (20:21)
[2022-07-03 20:25] VITALS: BP 106/56; PULSE 76; RESP 16; TEMP 36.7; O2SAT 96
[2022-07-03] MEDS: LORazepam 1 MG Tablet PO (22:10)
[2022-07-03] MEDS: Latanoprost 0.005% 1 Bottle 1 DRP LEFT EYE (22:11)
[2022-07-03] MEDS: CARBIDOPA/LEVODOPA CR 50/200 Tablet PO (22:12)
[2022-07-03] MEDS: traZODone 100 MG Tablet PO (22:12)
[2022-07-04] MEDS: CARBIDOPA/LEVODOPA 1 EACH CAPSULE.ER 4 EACH PO ×3 (04:13→13:12)
[2022-07-04] MEDS: Pramipexole Di-HCl 1 MG Tablet PO (04:33)
[2022-07-04] MEDS: Acetaminophen 500 MG Tablet 1000 MG PO ×3 (06:44→21:36)
[2022-07-04] MEDS: Levothyroxine 100 MCG Tablet 200 MCG PO (06:44)
[2022-07-04] MEDS: Menthol/Lanolin/Calamine/Znox 113 GM Tube 1 APPLIC TOPICAL ×3 (06:44→21:40)
[2022-07-04] MEDS: oxyCODONE 5 MG Tablet PO (06:58)
[2022-07-04] MEDS: Dorzolamide HCL/Timolol 10 ml Bottle 1 DRP LEFT EYE ×2 (09:20→21:36)
[2022-07-04] MEDS: VERAPAMIL HCL 300 MG CAP24H.PCT PO (09:21)
[2022-07-04] MEDS: Senna/Docusate Sodium 1 Tablet 2 TABLET PO ×2 (09:22→21:37)
[2022-07-04] MEDS: Polyethylene Glycol 3350 17 GM PACKET PO ×2 (09:22→21:38)
[2022-07-04] MEDS: Pramipexole Di-HCl 0.5 MG Tablet PO ×2 (09:23→13:11)
[2022-07-04] MEDS: APIXABAN 2.5 MG TABLET PO ×2 (09:23→21:37)
[2022-07-04] MEDS: Multivitamins,Therapeutic Tablet 3 TABLET PO (09:23)
[2022-07-04] MEDS: Lisinopril 10 MG Tablet PO (09:24)
--- NOTE | 2022-07-04 09:49 | PCM.PROGNOTE ---
Subjective Subjective Louie was seen on team rounds today. His Ludy was present in the room for rounds. Afebrile VSS Maintaining appropriate oxygen saturation on RA Oral intake is good Discussed with nursing - no problems that need addressed Reviewed the PT/OT/ST notes Medication list reviewed. He is complaining of feeling fatigued today. He requested Ativan this morning but he was requesting it to help his fatigue and not for anxiety. He usually takes 1 mg daily, mostly at bedtime. He is open to trying something else for anxiety that will not interfere with his level of awareness and cause confusion/disequilibrium/fatigue. Louie denies chest pain, shortness of breath, palpitations, lightheadedness, N/V/D/C/abdominal pain, dysuria. Objective Data Objective Data Vital Signs: Vital Signs Temp Pulse Resp BP Pulse Ox O2 Del Method O2 Flow Rate 98.1 F 76 16 106/56 L 96 CPAP 2 07/03/22 20:25 07/03/22 20:25 07/03/22 20:25 07/03/22 20:25 07/03/22 20:25 07/03/22 22:15 06/22/22 07:15 Oxygen Flow Rate (L/min) 2 Oxygen Delivery Method CPAP Weight: 251 lb 12.286 oz Body Mass Index (BMI) 33.2 Intake & Output: Intake and Output for Last 24 Hours 07/02/22 07/03/22 07/04/22 23:59 23:59 23:59 Intake Total 120 / 120 720 / 720 240 / 240 Output Total 950 / 950 825 / 825 Balance -830 / -830 -105 / -105 240 / 240 Lab / Micro Data Result Diagrams: 07/02/22 05:26 07/02/22 05:26 Micro: Microbiology 06/29/22 11:40 Urine, Clean Catch Urine Culture - Final Culture exhibits no growth. Physical Exam Const alert, oriented x3 and no apparent distress General Appearance: cooperative Resp clear to auscultation bilaterally Cardio regular rate, regular rhythm and no gallops GI normal to inspection, nondistended, normoactive bowel sounds, soft to palpation and non-tender Extremity no calf tenderness General Extremity: Negative for edema Skin Skin Narrative: The incision is intact with no dehiscence, no purulent discharge, and no erythema. Swelling and ecchymosis are resolving. Assessment & Plan Assessment/Plan (1) Chronic anxiety: PLAN: DC the Ativan. It is long acting and I suspect this is causing the fatigue today. Will order Xanax 0.25 mg BID PRN panic attack only and start Buspar 5 mg BID to treat chronic anxiety. (2) Basicervical fracture of neck of right femur: (3) History of open reduction and internal fixation (ORIF) procedure: (4) Parkinsons: PLAN: 1. Continue PT/OT 2. Continue the increased dose of carbidopa/levodopa 3 times a day 3. Continue trazodone at bed to help him sleep 4. Ativan has been discontinued and will start BuSpar 5 mg twice daily. 5. Continue to monitor. 6. We are getting closer to the point where he is independent enough to be at home with his to assist him. I suspect will be able to DC the end of next week and his will come in for family training prior to DC. Charges/Coding Visit Charges Inpatient E&M: 21690 Subs Hosp L2
[2022-07-04 10:00] VITALS: BP 146/87; PULSE 72; RESP 16; TEMP 36.4; O2SAT 99
[2022-07-04] MEDS: LORazepam 1 MG Tablet PO (10:34)
--- NOTE | 2022-07-04 13:45 | CASEMGMT ---
Social Work Team meeting held. Patient present as well as patient spouse, Ludy. Patient progressing in physical and occupational therapy. Team recommending for patient to continue with further care and treatment on the Rehab Unit. This delinquency prevention social worker communicating that continued stay approval was obtained by insurance with next update due on 07/11/2022. Patient agreeable with continued stay on the Rehab Unit, I am just not ready to go home yet. Patient to be re-teamed next week. Social Work to continue to follow. Mike HOLLEY, ORIANA
[2022-07-04] MEDS: CARBIDOPA/LEVODOPA 1 EACH CAPSULE.ER 3 EACH PO (18:41)
[2022-07-04 19:50] VITALS: BP 113/70; PULSE 66; RESP 22; TEMP 36.7; O2SAT 95
[2022-07-04] MEDS: NETARSUDIL MESYLATE 1 DRP OPHTHALMIC (21:34)
[2022-07-04] MEDS: Latanoprost 0.005% 1 Bottle 1 DRP LEFT EYE (21:36)
[2022-07-04] MEDS: busPIRone 5 MG Tablet PO (21:36)
[2022-07-04] MEDS: CARBIDOPA/LEVODOPA CR 50/200 Tablet PO (21:37)
[2022-07-04] MEDS: traZODone 100 MG Tablet PO (21:38)
[2022-07-05] MEDS: Pramipexole Di-HCl 1 MG Tablet PO (04:22)
[2022-07-05] MEDS: CARBIDOPA/LEVODOPA 1 EACH CAPSULE.ER 4 EACH PO ×3 (04:23→13:42)
[2022-07-05] MEDS: Levothyroxine 100 MCG Tablet 200 MCG PO (06:17)
[2022-07-05] MEDS: Acetaminophen 500 MG Tablet 1000 MG PO ×3 (06:17→21:35)
[2022-07-05] MEDS: Menthol/Lanolin/Calamine/Znox 113 GM Tube 1 APPLIC TOPICAL ×3 (06:17→21:55)
[2022-07-05 07:36] VITALS: BP 144/72; PULSE 62; RESP 16; TEMP 36.7; O2SAT 96
[2022-07-05] MEDS: Multivitamins,Therapeutic Tablet 3 TABLET PO (09:50)
[2022-07-05] MEDS: Pramipexole Di-HCl 0.5 MG Tablet PO ×2 (09:50→13:42)
[2022-07-05] MEDS: Senna/Docusate Sodium 1 Tablet 2 TABLET PO ×2 (09:51→21:37)
[2022-07-05] MEDS: busPIRone 5 MG Tablet PO ×2 (09:51→21:34)
[2022-07-05] MEDS: Lisinopril 10 MG Tablet PO (09:51)
[2022-07-05] MEDS: VERAPAMIL HCL 300 MG CAP24H.PCT PO (09:51)
[2022-07-05] MEDS: APIXABAN 2.5 MG TABLET PO ×2 (09:51→21:38)
[2022-07-05] MEDS: Polyethylene Glycol 3350 17 GM PACKET PO (09:51)
[2022-07-05] MEDS: Dorzolamide HCL/Timolol 10 ml Bottle 1 DRP LEFT EYE ×2 (09:52→21:54)
[2022-07-05] MEDS: oxyCODONE 5 MG Tablet PO ×2 (12:02→20:20)
[2022-07-05] MEDS: CARBIDOPA/LEVODOPA 1 EACH CAPSULE.ER 3 EACH PO (18:52)
[2022-07-05] MEDS: NETARSUDIL MESYLATE 1 DRP OPHTHALMIC (20:19)
[2022-07-05 20:23] VITALS: BP 100/57; PULSE 65; RESP 18; TEMP 36.9; O2SAT 98
[2022-07-05] MEDS: Latanoprost 0.005% 1 Bottle 1 DRP LEFT EYE (21:34)
[2022-07-05] MEDS: CARBIDOPA/LEVODOPA CR 50/200 Tablet PO (21:37)
[2022-07-05] MEDS: traZODone 100 MG Tablet PO (21:38)
[2022-07-05] MEDS: ALPRAZolam 0.25 MG Tablet 0.125 MG PO (21:42)
[2022-07-06] MEDS: CARBIDOPA/LEVODOPA 1 EACH CAPSULE.ER 4 EACH PO ×3 (04:03→13:42)
[2022-07-06] MEDS: Pramipexole Di-HCl 1 MG Tablet PO (04:06)
[2022-07-06] MEDS: Acetaminophen 500 MG Tablet 1000 MG PO ×3 (06:30→22:35)
[2022-07-06] MEDS: Levothyroxine 100 MCG Tablet 200 MCG PO (06:30)
[2022-07-06] MEDS: Menthol/Lanolin/Calamine/Znox 113 GM Tube 1 APPLIC TOPICAL ×3 (06:33→22:37)
[2022-07-06] MEDS: Polyethylene Glycol 3350 17 GM PACKET PO (08:44)
[2022-07-06] MEDS: APIXABAN 2.5 MG TABLET PO ×2 (08:44→22:35)
[2022-07-06] MEDS: Dorzolamide HCL/Timolol 10 ml Bottle 1 DRP LEFT EYE ×2 (08:44→22:38)
[2022-07-06] MEDS: Senna/Docusate Sodium 1 Tablet 2 TABLET PO ×2 (08:44→22:35)
[2022-07-06] MEDS: busPIRone 5 MG Tablet PO ×2 (08:45→22:35)
[2022-07-06] MEDS: VERAPAMIL HCL 300 MG CAP24H.PCT PO (08:45)
[2022-07-06] MEDS: Pramipexole Di-HCl 0.5 MG Tablet PO ×2 (08:45→13:42)
[2022-07-06] MEDS: Multivitamins,Therapeutic Tablet 3 TABLET PO (08:45)
[2022-07-06] MEDS: Lisinopril 10 MG Tablet PO (08:46)
[2022-07-06 09:36] VITALS: BP 148/83; PULSE 68; RESP 16; TEMP 36.4; O2SAT 96
[2022-07-06] MEDS: CARBIDOPA/LEVODOPA 1 EACH CAPSULE.ER 3 EACH PO (17:52)
--- NOTE | 2022-07-06 18:06 | NURSING ---
pt outside via [place] with granddaughter. in very good spirits, stated, im going to have a good night tonight. i hope your hear bambi with me
[2022-07-06] MEDS: NETARSUDIL MESYLATE 1 DRP OPHTHALMIC (21:52)
[2022-07-06] MEDS: Latanoprost 0.005% 1 Bottle 1 DRP LEFT EYE (22:29)
[2022-07-06 22:35] VITALS: BP 105/48; PULSE 77; RESP 18; TEMP 36.9; O2SAT 100
[2022-07-06] MEDS: CARBIDOPA/LEVODOPA CR 50/200 Tablet PO (22:36)
[2022-07-06] MEDS: oxyCODONE 5 MG Tablet PO (22:38)
[2022-07-06] MEDS: traZODone 100 MG Tablet PO (22:40)
[2022-07-06] MEDS: ALPRAZolam 0.25 MG Tablet 0.125 MG PO (22:40)
[2022-07-07] MEDS: Pramipexole Di-HCl 1 MG Tablet PO (04:20)
[2022-07-07] MEDS: CARBIDOPA/LEVODOPA 1 EACH CAPSULE.ER 4 EACH PO ×3 (04:21→14:04)
[2022-07-07] MEDS: Levothyroxine 100 MCG Tablet 200 MCG PO (06:39)
[2022-07-07] MEDS: Acetaminophen 500 MG Tablet 1000 MG PO ×3 (06:39→21:39)
[2022-07-07] MEDS: Menthol/Lanolin/Calamine/Znox 113 GM Tube 1 APPLIC TOPICAL ×2 (06:39→21:41)
[2022-07-07 07:46] VITALS: BP 114/72; PULSE 54; RESP 16; TEMP 36.4; O2SAT 98
[2022-07-07] MEDS: busPIRone 5 MG Tablet PO ×2 (08:44→21:39)
[2022-07-07] MEDS: Pramipexole Di-HCl 0.5 MG Tablet PO ×2 (08:44→14:04)
[2022-07-07] MEDS: Lisinopril 10 MG Tablet PO (08:44)
[2022-07-07] MEDS: Multivitamins,Therapeutic Tablet 3 TABLET PO (08:44)
[2022-07-07] MEDS: Senna/Docusate Sodium 1 Tablet 2 TABLET PO ×2 (08:44→21:39)
[2022-07-07] MEDS: Polyethylene Glycol 3350 17 GM PACKET PO (08:44)
[2022-07-07] MEDS: Dorzolamide HCL/Timolol 10 ml Bottle 1 DRP LEFT EYE ×2 (08:44→21:55)
[2022-07-07] MEDS: APIXABAN 2.5 MG TABLET PO ×2 (08:45→21:39)
[2022-07-07] MEDS: VERAPAMIL HCL 300 MG CAP24H.PCT PO (08:46)
--- NOTE | 2022-07-07 13:02 | PN_ITS ---
Progress Note Afebrile VSS Maintaining appropriate oxygen saturation on RA Oral intake is [] Discussed with nursing - no problems that need addressed Reviewed the PT/OT/ST notes Medication list reviewed. No withdrawal sx from discontinuing the Ativan 1 mg PRN. He tells the nurses he is having a panic attack but, He is not tachycardic or tachypneic, he is not diaphoretic and he is sitting in his recliner and appears in no distress. He was in the BR and had a BM and urinated and then he was worried about urinating on the floor and he good a head sensation and he thinks this is a panic attack. We had a long discussion about stress/panic attacks/benzodiazepine use in patients with PD who fall and psychotherapy. I suggested he follow up with a psychologist to help him identify what constitutes a panic attack and how to control sx without taking a medication that can impair mental status and balance and lead to falls. Physical Exam Const alert, oriented x3 and no apparent distress Constitutional Narrative: Does not appear anxious. Not restless, no fidgeting, no tremors, no diaphoretic. He is perseverating about having a funny sensation in the area of his forehead. Appear Comfortable sitting in the recliner. Looking forward to a visit from his family. General Appearance: cooperative HEENT normocephalic and moist oral mucous membranes Eyes PERRL, EOMs intact bilaterally, conjunctivae normal and no scleral icterus Resp normal respiratory effort, normal air movement and clear to auscultation bilaterally Cardio regular rate, regular rhythm and no gallops GI normal to inspection, nondistended, normoactive bowel sounds, soft to palpation and non-tender Assessment & Plan Assessment/Plan (1) Chronic anxiety: PLAN: I suggested to Kan that he follow up with a MUSCULOSKELETAL PHYSICIAN or a psychologist for tx of anxiety. He admits to having a lot of stress in his life for the past 3 years. He was not sleeping well at home. Saw someone who put him on Stress Vitamins and he also has been taking Ativan BUT, no appropriately. The other day he felt tired so he took Ativan thinking it would make him feel better. Benzodiazepines are dangerous drugs in a pt who does not know the indications for taking the medications and he has PD and this will increase his risk for falls. Will Ask for him to be seen by Behavioral Health or SW and given resources to follow up for counselling. (2) Physical debility: PLAN: Continue therapy. Plan is for DC home and I suspect by the end of the week he will be stable for DC. I am going to DC the benzo's Visit Charges Inpatient E&M: 97212 Subs Hosp L2
[2022-07-07] MEDS: CARBIDOPA/LEVODOPA 1 EACH CAPSULE.ER 3 EACH PO (18:04)
[2022-07-07 19:29] VITALS: BP 114/71; PULSE 72; RESP 18; TEMP 36.8; O2SAT 98
[2022-07-07 21:30] VITALS: PULSE 72; RESP 18; O2SAT 98
[2022-07-07] MEDS: NETARSUDIL MESYLATE 1 DRP OPHTHALMIC (21:37)
[2022-07-07] MEDS: traZODone 100 MG Tablet PO (21:39)
[2022-07-07] MEDS: CARBIDOPA/LEVODOPA CR 50/200 Tablet PO (21:40)
[2022-07-07] MEDS: Latanoprost 0.005% 1 Bottle 1 DRP LEFT EYE (21:48)
--- NOTE | 2022-07-08 03:04 | NURSING ---
Reviewed and agree with BOBCAT OPERATOR documentation and assessment charting.
[2022-07-08] MEDS: oxyCODONE 5 MG Tablet PO ×2 (03:34→22:25)
[2022-07-08] MEDS: CARBIDOPA/LEVODOPA 1 EACH CAPSULE.ER 4 EACH PO ×3 (04:31→14:13)
[2022-07-08] MEDS: Pramipexole Di-HCl 1 MG Tablet PO (04:31)
[2022-07-08] MEDS: Levothyroxine 100 MCG Tablet 200 MCG PO (06:17)
[2022-07-08] MEDS: Acetaminophen 500 MG Tablet 1000 MG PO ×3 (06:18→22:24)
[2022-07-08] MEDS: Lisinopril 10 MG Tablet PO (09:13)
[2022-07-08] MEDS: APIXABAN 2.5 MG TABLET PO ×2 (09:13→22:24)
[2022-07-08] MEDS: VERAPAMIL HCL 300 MG CAP24H.PCT PO (09:13)
[2022-07-08] MEDS: Senna/Docusate Sodium 1 Tablet 2 TABLET PO ×2 (09:13→22:24)
[2022-07-08] MEDS: Multivitamins,Therapeutic Tablet 3 TABLET PO (09:13)
[2022-07-08] MEDS: busPIRone 5 MG Tablet PO (09:13)
[2022-07-08] MEDS: Pramipexole Di-HCl 0.5 MG Tablet PO ×2 (09:13→14:13)
[2022-07-08] MEDS: Polyethylene Glycol 3350 17 GM PACKET PO (09:14)
[2022-07-08] MEDS: Dorzolamide HCL/Timolol 10 ml Bottle 1 DRP LEFT EYE ×2 (09:14→22:26)
[2022-07-08] MEDS: Menthol/Lanolin/Calamine/Znox 113 GM Tube 1 APPLIC TOPICAL ×2 (09:18→22:26)
[2022-07-08 10:00] VITALS: BP 152/88; PULSE 63; RESP 17; TEMP 36.9; O2SAT 97
[2022-07-08] MEDS: CARBIDOPA/LEVODOPA 1 EACH CAPSULE.ER 3 EACH PO (17:39)
[2022-07-08 19:19] VITALS: BP 110/69; PULSE 79; RESP 14; TEMP 37.1; O2SAT 95
[2022-07-08] MEDS: NETARSUDIL MESYLATE 1 DRP OPHTHALMIC (21:04)
[2022-07-08 22:20] VITALS: PULSE 87; RESP 14; O2SAT 95
[2022-07-08] MEDS: Latanoprost 0.005% 1 Bottle 1 DRP LEFT EYE (22:23)
[2022-07-08] MEDS: CARBIDOPA/LEVODOPA CR 50/200 Tablet PO (22:24)
[2022-07-08] MEDS: traZODone 100 MG Tablet PO (22:24)
--- NOTE | 2022-07-09 01:36 | NURSING ---
Reviewed and agree with COMMERCIAL LENDER documentation and assessment charting.
[2022-07-09] MEDS: CARBIDOPA/LEVODOPA 1 EACH CAPSULE.ER 4 EACH PO ×3 (04:48→13:49)
[2022-07-09] MEDS: Pramipexole Di-HCl 1 MG Tablet PO (04:48)
[2022-07-09] MEDS: Levothyroxine 100 MCG Tablet 200 MCG PO (05:10)
[2022-07-09] MEDS: Acetaminophen 500 MG Tablet 1000 MG PO ×3 (05:10→21:16)
[2022-07-09 07:24] VITALS: BP 118/70; PULSE 61; RESP 16; TEMP 35.9; O2SAT 96
[2022-07-09] MEDS: oxyCODONE 5 MG Tablet PO ×2 (08:39→17:14)
[2022-07-09] MEDS: VERAPAMIL HCL 300 MG CAP24H.PCT PO (09:24)
[2022-07-09] MEDS: Lisinopril 10 MG Tablet PO (09:25)
[2022-07-09] MEDS: Multivitamins,Therapeutic Tablet 3 TABLET PO (09:25)
[2022-07-09] MEDS: APIXABAN 2.5 MG TABLET PO ×2 (09:25→21:16)
[2022-07-09] MEDS: Dorzolamide HCL/Timolol 10 ml Bottle 1 DRP LEFT EYE ×2 (09:25→21:15)
[2022-07-09] MEDS: Pramipexole Di-HCl 0.5 MG Tablet PO ×2 (09:25→13:50)
[2022-07-09] MEDS: Menthol/Lanolin/Calamine/Znox 113 GM Tube 1 APPLIC TOPICAL ×2 (09:29→21:19)
[2022-07-09] MEDS: CARBIDOPA/LEVODOPA 1 EACH CAPSULE.ER 3 EACH PO (17:58)
[2022-07-09 19:46] VITALS: BP 135/72; PULSE 60; RESP 20; TEMP 36.9; O2SAT 100
[2022-07-09] MEDS: Latanoprost 0.005% 1 Bottle 1 DRP LEFT EYE (21:15)
[2022-07-09] MEDS: NETARSUDIL MESYLATE 1 DRP OPHTHALMIC (21:15)
[2022-07-09] MEDS: Polyethylene Glycol 3350 17 GM PACKET PO (21:15)
[2022-07-09] MEDS: traZODone 100 MG Tablet PO (21:16)
[2022-07-09] MEDS: Senna/Docusate Sodium 1 Tablet 2 TABLET PO (21:16)
[2022-07-09] MEDS: CARBIDOPA/LEVODOPA CR 50/200 Tablet PO (21:16)
[2022-07-10] MEDS: CARBIDOPA/LEVODOPA 1 EACH CAPSULE.ER 4 EACH PO ×3 (04:38→13:29)
[2022-07-10] MEDS: Pramipexole Di-HCl 1 MG Tablet PO (04:39)
[2022-07-10] MEDS: Acetaminophen 500 MG Tablet 1000 MG PO ×3 (04:54→22:05)
[2022-07-10] MEDS: Levothyroxine 100 MCG Tablet 200 MCG PO (04:55)
[2022-07-10 07:45] VITALS: BP 104/62; PULSE 56; RESP 16; TEMP 36.7; O2SAT 98
[2022-07-10] MEDS: APIXABAN 2.5 MG TABLET PO ×2 (09:23→22:05)
[2022-07-10] MEDS: Multivitamins,Therapeutic Tablet 3 TABLET PO (09:23)
[2022-07-10] MEDS: Dorzolamide HCL/Timolol 10 ml Bottle 1 DRP LEFT EYE ×2 (09:23→22:07)
[2022-07-10] MEDS: Pramipexole Di-HCl 0.5 MG Tablet PO ×2 (09:23→13:30)
[2022-07-10] MEDS: VERAPAMIL HCL 300 MG CAP24H.PCT PO ×2 (09:24→22:05)
[2022-07-10] MEDS: Lisinopril 10 MG Tablet PO (09:24)
[2022-07-10] MEDS: Polyethylene Glycol 3350 17 GM PACKET PO ×2 (09:25→22:08)
[2022-07-10] MEDS: Senna/Docusate Sodium 1 Tablet 2 TABLET PO ×2 (09:25→22:05)
[2022-07-10] MEDS: oxyCODONE 5 MG Tablet PO ×4 (09:28→22:04)
[2022-07-10] MEDS: Menthol/Lanolin/Calamine/Znox 113 GM Tube 1 APPLIC TOPICAL ×2 (09:32→22:08)
--- NOTE | 2022-07-10 15:33 | CASEMGMT ---
Social Work Spoke with pt to discuss DC plans as pt is progressing very well and insurance update is 07/11. IDT recommending DC home and to set date with pt. Pt phoned to inquire about DC date. All parties agreeable to DC 07/12. Discussed HHC vs OP. Pt requesting OP at [facility]. No DME needs. to transport. Plan: DC home with 07/12, [facility] PT Referral made to [facility]. Shala Garcia ,HIDE COOKING OPERATOR DYE PADDER OPERATOR
[2022-07-10] MEDS: CARBIDOPA/LEVODOPA 1 EACH CAPSULE.ER 3 EACH PO (17:30)
[2022-07-10 22:05] VITALS: BP 149/79; PULSE 80; RESP 18; TEMP 36.4; O2SAT 95
[2022-07-10] MEDS: traZODone 100 MG Tablet PO (22:05)
[2022-07-10] MEDS: NETARSUDIL MESYLATE 1 DRP OPHTHALMIC (22:07)
[2022-07-10] MEDS: Latanoprost 0.005% 1 Bottle 1 DRP LEFT EYE (22:07)
[2022-07-10] MEDS: CARBIDOPA/LEVODOPA CR 50/200 Tablet PO (22:09)
[2022-07-11] MEDS: Levothyroxine 100 MCG Tablet 200 MCG PO (04:44)
[2022-07-11] MEDS: Acetaminophen 500 MG Tablet 1000 MG PO ×3 (04:44→22:07)
[2022-07-11] MEDS: Pramipexole Di-HCl 1 MG Tablet PO (04:44)
[2022-07-11] MEDS: CARBIDOPA/LEVODOPA 1 EACH CAPSULE.ER 4 EACH PO ×3 (04:46→13:42)
[2022-07-11] MEDS: oxyCODONE 5 MG Tablet PO ×2 (04:49→09:57)
[2022-07-11] MEDS: Multivitamins,Therapeutic Tablet 3 TABLET PO (07:38)
[2022-07-11 08:00] VITALS: BP 159/73; PULSE 60; RESP 16; TEMP 36.7; O2SAT 100
[2022-07-11] MEDS: Pramipexole Di-HCl 0.5 MG Tablet PO ×2 (09:07→13:40)
[2022-07-11] MEDS: Polyethylene Glycol 3350 17 GM PACKET PO (09:08)
[2022-07-11] MEDS: Senna/Docusate Sodium 1 Tablet 2 TABLET PO ×2 (09:08→22:08)
[2022-07-11] MEDS: APIXABAN 2.5 MG TABLET PO ×2 (09:08→22:08)
[2022-07-11] MEDS: Lisinopril 10 MG Tablet PO (09:08)
[2022-07-11] MEDS: Dorzolamide HCL/Timolol 10 ml Bottle 1 DRP LEFT EYE ×2 (09:09→22:08)
--- NOTE | 2022-07-11 13:22 | CASEMGMT ---
Social Work IDT met with patient and for Team meeting. Discussed patient's progress in PT/OT/SN. Explained [employer] insurance. Confirmed DC plan is to return home with 07/12 with [facility] PT, no DME needs. Shala Garcia, JEWELRY MECHANIC IMAGING MANAGER
[2022-07-11] MEDS: Menthol/Lanolin/Calamine/Znox 113 GM Tube 1 APPLIC TOPICAL ×2 (13:41→22:09)
[2022-07-11] MEDS: CARBIDOPA/LEVODOPA 1 EACH CAPSULE.ER 3 EACH PO (17:57)
--- NOTE | 2022-07-11 18:03 | NURSING ---
agree with tong leija clinical assessment and findings this shift 07/11
[2022-07-11] MEDS: NETARSUDIL MESYLATE 1 DRP OPHTHALMIC (20:48)
[2022-07-11 22:00] VITALS: BP 107/58; PULSE 68; RESP 16; TEMP 36.7; O2SAT 97
[2022-07-11] MEDS: Latanoprost 0.005% 1 Bottle 1 DRP LEFT EYE (22:07)
[2022-07-11] MEDS: CARBIDOPA/LEVODOPA CR 50/200 Tablet PO (22:08)
[2022-07-11] MEDS: traZODone 100 MG Tablet PO (22:08)
[2022-07-12] MEDS: CARBIDOPA/LEVODOPA 1 EACH CAPSULE.ER 4 EACH PO ×2 (04:38→09:47)
[2022-07-12] MEDS: Pramipexole Di-HCl 1 MG Tablet PO (04:41)
[2022-07-12] MEDS: Levothyroxine 100 MCG Tablet 200 MCG PO (05:33)
[2022-07-12] MEDS: Acetaminophen 500 MG Tablet 1000 MG PO ×2 (05:33→13:34)
[2022-07-12 08:29] VITALS: BP 144/86; PULSE 58; RESP 16; TEMP 36.3; O2SAT 98
[2022-07-12] MEDS: oxyCODONE 5 MG Tablet PO (09:46)
[2022-07-12] MEDS: Polyethylene Glycol 3350 17 GM PACKET PO (09:46)
[2022-07-12] MEDS: Multivitamins,Therapeutic Tablet 3 TABLET PO (09:46)
[2022-07-12] MEDS: Dorzolamide HCL/Timolol 10 ml Bottle 1 DRP LEFT EYE (09:48)
[2022-07-12] MEDS: APIXABAN 2.5 MG TABLET PO (09:49)
[2022-07-12] MEDS: VERAPAMIL HCL 300 MG CAP24H.PCT PO (09:52)
[2022-07-12] MEDS: Pramipexole Di-HCl 0.5 MG Tablet PO ×2 (09:52→13:34)
[2022-07-12] MEDS: Senna/Docusate Sodium 1 Tablet 2 TABLET PO (09:52)
[2022-07-12] MEDS: Lisinopril 10 MG Tablet PO (09:54)
--- NOTE | 2022-07-12 10:44 | DCINST_ITS ---
Discharge Instructions Diet Discharge Diet: - (Heart healthy diet- LOW FAT and LOW SALT) Activity Discharge Activity: May Not Drive, May Shower, Use Walker and - Ice area for (Minutes): 15 (Icing the incision area for 15 minutes after exercise is a good idea it helps with pain and with decreasing inflammation. ) Weight Bearing Status: Full weight bearing Lifting Restrictions: no more than 10 lbs Keep extremity elevated above heart level: Right Leg Dressing / Incision Call your doctor if your incision/area has: Continuous Slow Oozing, Increased Pain/ Swelling, Increased Redness and Foul Smelling Discharge Call your doctor if you observe: Fever of 101 or Higher, Shortness of breath, Dizziness, Fainting spells, Chest pain, Calf discomfort and Uncontrolled pain Suture Line Care: Avoid Pulling/Pushing and Avoid Pinching/Bending Cleanse incision/area with: Soap & Water Additional Dressing/Incision Instructions:: You can leave the incision area open to air with no dressing but, if your clothes are irritating the area you can cover with a dry dressing. Follow Up Care Please Follow Up With: Dameon Turner MD Test Results: Test results from this visit will be discussed in further detail at your follow- up appointment, if applicable. Pending Tests Upon Discharge: none Discharge Plan Admission Admit Date/Time: 06/17/22 17:04 Primary Reason for Your Visit: Debility secondary to right hip fracture Attending Provider: Sheryl López Primary Care Provider: Zana Vásquez Instructions Patient Instructions: Journaling for Mental Health, Anxiety Disorders Tx, BARBRA Additional Instructions / Restrictions: 1. You have done very well in therapy. Maintaining the progress you have achieved in therapy is a good goal. They have a exercise program at [facility] for Parkinson's patients on it focuses on maintaining mobility/balance and strength. I think you would really benefit from attending this program. you will also0 have a chance to socialize with other folks with Parkinson's and talk about what you have been experiencing. 2. Parkinson's disease causes problems with balance and walking. Medications like CBD, Ativan, Xanax and Valium can make the balance worse and increases your risk for falls. I have stopped these medications while you have been in therapy and you are doing well. You have a lot of stress and have a hard time letting go of things. You tend to perseverate on problems. As we get older this often happens and people worry about all kind of things - their health, inflation, government, finances, what will happen in the future, your kids etc. This can make you crazy and leads to not being able to sleep, startling easily, having palpitations and episodic lightheadedness. Some people somaticize stress and having headaches, neck pain, dizziness, palpitations, a sensation of not being right and this can lead to multiple trips to the doctor. Often medications get prescribed that actually make things worse and cause confusion, falls, sedation. I think you would do great in therapy to learn how to manage your stress. I have given you some literature to read about how to control stress without medication. I am sending you home on Trazodone which is the medication I have been giving you to help you sleep at night. You are on many medications for Parkinson's and all medications have interactions with other medications. It would be best if you could learn to relax and control stress with meditation, yoga, journaling, finding a hobby that interests you and distracts you from worrying, talking online in a chat for people suffering from anxiety or in person (support group). I think that getting some psychotherapy would really help to identify what is making you anxious. The [facility] is on [facility] and the phone number is [phone]. Many of the hospital staff went there during when we were insanely busy and people were dying right and left........many of the nurses had to change where they work in order to relieve the stress......we lost several ICU nurses because of this. 3. If you or Ludy have any questions after you leave rehab please do not hesit ate to call me. OFFICE: [phone] CELL: [phone] You are going to great at home, congratulations! You have worked hard and you are READY to make some changes in your life and focus on quality of life and this means good emotional health as well as good physical health. Discharge Orders/Prescriptions Prescriptions: New oxycodone 5 mg Tablet 5 mg PO Q6H PRN PRN (Reason: Pain Score 4-10) 7 Days Qty: 28 0RF polyethylene glycol 3350 17 gram Powder In Packet 17 g PO BID Qty: 60 0RF trazodone 100 mg Tablet 100 mg PO QHS Qty: 30 0RF Continued dorzolamide-timolol 1 DROP bottle 1 drp ophthalmic (eye) BID Label Comments: glaucoma medication Rx Instructions: LEFT EYE ONLY levothyroxine 200 MCG tablet 200 mcg PO DAILY Label Comments: hypothyroidism bimatoprost 1 DROP bottle 1 drp topical QHS Label Comments: glaucoma medication Rx Instructions: LEFT EYE multivitamin 1 EACH tablet 3 tab PO DAILY carbidopa-levodopa 50-200 mg Tablet Extended Release 1 tab PO QHS lisinopril 10 mg Tablet 10 mg PO DAILY verapamil 300 mg Capsule, [address] 300 mg PO DAILY Rytary 48.75-195 mg Capsule, Extended Release 3 cap PO 4XD Rx Instructions: GIVEN AT 0430, 0900, 1330 & 1830 pramipexole [Mirapex] 0.5 mg Tablet 0.5 mg PO BID Rx Instructions: GIVEN AT 0900 & 1330 netarsudil 0.02 % Drops 1 drp LEFT EYE QPM acetaminophen 500 mg tablet 1,000 mg PO Q8 pramipexole 0.5 mg tablet 0.5 mg PO 1330 Changed aspirin 81 mg tablet,chewable 81 mg PO DAILY Qty: 1 0RF Senna Plus 8.6-50 mg capsule 2 tab-cap PO BID Qty: 120 0RF Discontinued lorazepam 1 MG tablet 1 mg PO BID PRN (Reason: Anxiety) Qty: 14 0RF oxycodone 5 mg Tablet 2.5 - 5 mg PO Q4H PRN PRN (Reason: Pain Score 4-10) Qty: 0 0RF Ensure Surgery 0.08-1.4 gram-kcal/mL liquid 237 ml PO TIDCM No Action rasagiline 1 mg Tablet 1 mg PO DAILY Rx Instructions: GIVEN AT 0430 EVERY MORNING pramipexole [Mirapex] 1 mg Tablet 1 mg PO DAILY Rx Instructions: GIVE AT 0430 DAILY Referrals / Follow Up: Zana Vásquez MD [Primary Care Provider] - 07/19/22 2:20 pm Dameon Turner MD [Med Staff - Active Staff] - 07/15/22 3:15 pm Disposition Disposition (needs filled in before D/C Order can be placed): Home, Self Care
--- NOTE | 2022-07-12 11:34 | PCM.DC.SUM ---
Providers Date of Admission: 06/17/22 Date of Discharge: 07/12/22 Primary Care Physician: Dr. Zana Vásquez MD Reason For Visit: R HIP FRACTURE Diagnosis Discharge Diagnosis (1) Physical debility: Status: Acute Code(s): R53.81 - Other malaise Plan: Continue therapy as an OP at [facility]. (2) Basicervical fracture of neck of right femur: Status: Acute Code(s): S72.041A - Displaced fracture of base of neck of right femur, initial encounter for closed fracture (3) History of open reduction and internal fixation (ORIF) procedure: Status: Acute Code(s): Z98.890 - Other specified postprocedural states Plan: Dr. Turner - surgery 06/16/22 for placement of R hip nail (4) Acute blood loss as cause of postoperative anemia: Status: Acute Code(s): D62 - Acute posthemorrhagic anemia (5) Chronic anxiety: Status: Chronic Code(s): F41.9 - Anxiety disorder, unspecified Plan: I suggested to Jered that he follow up with a POWER EQUIPMENT TECHNOLOGY INSTRUCTOR or a psychologist for tx of anxiety. He admits to having a lot of stress in his life for the past 3 years. He was not sleeping well at home. Saw someone who put him on Stress Vitamins and he also has been taking Ativan BUT, not appropriately. The other day he felt tired so he took Ativan thinking it would make him feel better. Ativan was discontinued during his stay in rehab. (6) Parkinson's disease: Status: Acute Code(s): G20 - Parkinson's disease Plan: Will follow with the neurologist he sees at [facility] Plan 1. DC home. No DME needed. OP PT at [facility] 2. follow up with a therapist at the [facility] on [facility] to learn to control anxiety. 3. Follow up with Dr. Vásquez and Dr. Turner post DC. Medications at Discharge Home Medications bimatoprost 0.03 % drops with applicator, eyelash base 1 drp topical QHS eye drop 06/26/17 dorzolamide 22.3 mg-timolol 6.8 mg/mL eye drops 1 drp ophthalmic (eye) BID Eye drops 06/26/17 levothyroxine 200 mcg tablet 200 mcg PO DAILY hypothyroid 06/26/17 multivitamin 3 tab PO DAILY Supplement 11/19/19 carbidopa ER 48.75 mg-levodopa 195 mg capsule,extended release (Rytary) 3 cap PO 4XD SHAKES 04/24/22 carbidopa ER 50 mg-levodopa 200 mg tablet,extended release 1 tab PO QHS Check with primary doctor 04/24/22 lisinopril 10 mg tablet 10 mg PO DAILY BP 04/24/22 rasagiline 1 mg tablet 1 mg PO DAILY SHAKES 04/24/22 verapamil 300 mg capsule 24hr pellet CT,ext.release 300 mg PO DAILY BP 04/24/22 netarsudil 0.02 % eye drops 1 drp LEFT EYE QPM eyes 05/01/22 pramipexole 0.5 mg tablet (Mirapex) 0.5 mg PO BID SHAKES 05/01/22 pramipexole 1 mg tablet (Mirapex) 1 mg PO DAILY PARKINSONS 05/01/22 acetaminophen 500 mg tablet 1,000 mg PO Q8 Check with primary doctor 06/17/22 pramipexole 0.5 mg tablet 0.5 mg PO 1330 Check with primary doctor 06/17/22 aspirin 81 mg chewable tablet 81 mg PO DAILY Check with primary doctor #1 TAB 07/12/22 oxycodone 5 mg tablet 5 mg PO Q6H PRN PRN Pain Score 4-10 7 days #28 tabs 07/12/22 polyethylene glycol 3350 17 gram oral powder packet 17 g PO BID #60 ea 07/12/22 sennosides 8.6 mg-docusate sodium 50 mg capsule (Senna Plus) 2 tab-cap PO BID #120 caps 07/12/22 trazodone 100 mg tablet 100 mg PO QHS #30 tabs 07/12/22 Hospital Course Operations - (Right hip nailing on 06/16/[address] 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 He also struck his head during the fall.? A noncontrast CT brain showed chronic involutional changes only.? CT scan of the cervical spine showed multilevel degenerative changes with no fractures or dislocations.? X-ray of the right hip revealed a nondisplaced complete fracture of the right femoral neck without evidence of trochanteric involvement.? He was admitted to the hospital and Dr. Hector Turner was consulted to repair the fx. He was taken to surgery on 06/16/22 for placement of a R hip nail.? Post-operatively he was seen by PT/OT and admission to acute inpt rehab was recommended.? He was transferred to acute inpt rehab on 06/17/22 for 3 hours of therapy daily to restore function/independence at or near his level prior to the fall.? 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 .? Jered is an anxious person and takes Ativan PRN and CBD gummies. He can not sleep at night and this has been a problem for some time. He tends to perseverate on his health and has somatic sx related to anxiety. He equates any physical symptom he is having with anxiety. for example. One day he was feeling very tired and he thought Ativan might help so he took Ativan and became even more tired. We discussed sx of anxiety and panic attacks during his admission. I explained to Jered that Ativan and sedating medications are not really very good for people with PD because it affects consciousness and can lead to increased gait instability and falls. I started him on Trazodone at night and he has been sleeping well most nights. We initially decreased the dose of the Ativan and then prior to DC discontinued Ativan completely. I also recommended he avoid CBD gummies, antihistamines and ETOH. Prior to DC his balance was much improved and so was his strength. Prior to discharge he was able to complete 14 sit to stands in 30 seconds using his arms to assist. He was able to complete the tug test and 18.8 seconds using a wheeled walker which was down from 45.34 seconds at admission. He was able to ambulate with a front wheeled walker 125 feet at standby assist demonstrating efficient praful speed and step length. He was able to stand using the urinal at contact-guard assist and manage his close and the urinal. He could ascend/descend 13 steps in the stairwell with 2 handrails at contact-guard assist. Louie was discharged on 07/12/2022 to home with his Ludy. He plans on going to [email or web address] for PT. He had no DME needs. Prior to discharge he and I discussed attending the exercise classes for patients with Parkinson's disease offered at [facility] after he is done with PT for the hip fracture. I work release was given to him to return to work on 08/31/22. He plans on following up with a psychotherapist to learn how to control his anxiety without needing medication that would potentially increase his risk for falls due to gait instability due to PD. Weight / BMI Weight Weight: 250 lb 7.122 oz Body Mass Index (BMI) 33.2 ABG / Lab / Microbiology Data Result Diagrams: 07/02/22 05:26 07/02/22 05:26 Microbiology: Microbiology 06/29/22 11:40 Urine, Clean Catch Urine Culture - Final Culture exhibits no growth. D/C Instructions Discharge Diet: - (Heart healthy diet- LOW FAT and LOW SALT) Ice area for (Minutes): 15 (Icing the incision area for 15 minutes after exercise is a good idea it helps with pain and with decreasing inflammation. ) Weight Bearing Status: Full weight bearing Keep extremity elevated above heart level: Right Leg Call your doctor if your incision/area has: Continuous Slow Oozing, Increased Pain/ Swelling, Increased Redness and Foul Smelling Discharge Call your doctor if you observe: Fever of 101 or Higher, Shortness of breath, Dizziness, Fainting spells, Chest pain, Calf discomfort and Uncontrolled pain Suture Line Care: Avoid Pulling/Pushing and Avoid Pinching/Bending Cleanse incision/area with: Soap & Water Additional Dressing/Incision Instructions: You can leave the incision area open to air with no dressing but, if your clothes are irritating the area you can cover with a dry dressing. Pending Tests Upon Discharge: none Please Follow Up With: Dameon Turner MD Meaningful Use Info Meaningful Use Diagnoses (Choose all that apply): None applicable Discharge Plan Admission Admit Date/Time: 06/17/22 17:04 Primary Reason for Your Visit: Debility secondary to right hip fracture Attending Provider: Sheryl López Primary Care Provider: Zana Vásquez Instructions Forms: Work Excuse, Work / School Excuse Patient Instructions: Journaling for Mental Health, Anxiety Disorders Tx, BARBRA Additional Instructions / Restrictions: 1. You have done very well in therapy. Maintaining the progress you have achieved in therapy is a good goal. They have a exercise program at [facility] for Parkinson's patients on it focuses on maintaining mobility/balance and strength. I think you would really benefit from attending this program. you will also0 have a chance to socialize with other folks with Parkinson's and talk about what you have been experiencing. 2. Parkinson's disease causes problems with balance and walking. Medications like CBD, Ativan, Xanax and Valium can make the balance worse and increases your risk for falls. I have stopped these medications while you have been in therapy and you are doing well. You have a lot of stress and have a hard time letting go of things. You tend to perseverate on problems. As we get older this often happens and people worry about all kind of things - their health, inflation, government, finances, what will happen in the future, your kids etc. This can make you crazy and leads to not being able to sleep, startling easily, having palpitations and episodic lightheadedness. Some people somaticize stress and having headaches, neck pain, dizziness, palpitations, a sensation of not being right and this can lead to multiple trips to the doctor. Often medications get prescribed that actually make things worse and cause confusion, falls, sedation. I think you would do great in therapy to learn how to manage your stress. I have given you some literature to read about how to control stress without medication. I am sending you home on Trazodone which is the medication I have been giving you to help you sleep at night. You are on many medications for Parkinson's and all medications have interactions with other medications. It would be best if you could learn to relax and control stress with meditation, yoga, journaling, finding a hobby that interests you and distracts you from worrying, talking online in a chat for people suffering from anxiety or in person (support group). I think that getting some psychotherapy would really help to identify what is making you anxious. The [facility] is on [facility] and the phone number is [phone]. Many of the hospital staff went there during when we were insanely busy and people were dying right and left........many of the nurses had to change where they work in order to relieve the stress......we lost several ICU nurses because of this. 3. If you or Ludy have any questions after you leave rehab please do not hesitate to call me. OFFICE: [phone] CELL: [phone] You are going to great at home, congratulations! You have worked hard and you are READY to make some changes in your life and focus on quality of life and this means good emotional health as well as good physical health. Discharge Orders/Prescriptions Prescriptions: New oxycodone 5 mg Tablet 5 mg PO Q6H PRN PRN (Reason: Pain Score 4-10) 7 Days Qty: 28 0RF polyethylene glycol 3350 17 gram Powder In Packet 17 g PO BID Qty: 60 0RF trazodone 100 mg Tablet 100 mg PO QHS Qty: 30 0RF Continued dorzolamide-timolol 1 DROP bottle 1 drp ophthalmic (eye) BID Label Comments: glaucoma medication Rx Instructions: LEFT EYE ONLY levothyroxine 200 MCG tablet 200 mcg PO DAILY Label Comments: hypothyroidism bimatoprost 1 DROP bottle 1 drp topical QHS Label Comments: glaucoma medication Rx Instructions: LEFT EYE multivitamin 1 EACH tablet 3 tab PO DAILY carbidopa-levodopa 50-200 mg Tablet Extended Release 1 tab PO QHS lisinopril 10 mg Tablet 10 mg PO DAILY verapamil 300 mg Capsule, [address] 300 mg PO DAILY Rytary 48.75-195 mg Capsule, Extended Release 3 cap PO 4XD Rx Instructions: GIVEN AT 0430, 0900, 1330 & 1830 pramipexole [Mirapex] 0.5 mg Tablet 0.5 mg PO BID Rx Instructions: GIVEN AT 0900 & 1330 netarsudil 0.02 % Drops 1 drp LEFT EYE QPM acetaminophen 500 mg tablet 1,000 mg PO Q8 pramipexole 0.5 mg tablet 0.5 mg PO 1330 Changed aspirin 81 mg tablet,chewable 81 mg PO DAILY Qty: 1 0RF Senna Plus 8.6-50 mg capsule 2 tab-cap PO BID Qty: 120 0RF Discontinued lorazepam 1 MG tablet 1 mg PO BID PRN (Reason: Anxiety) Qty: 14 0RF oxycodone 5 mg Tablet 2.5 - 5 mg PO Q4H PRN PRN (Reason: Pain Score 4-10) Qty: 0 0RF Ensure Surgery 0.08-1.4 gram-kcal/mL liquid 237 ml PO TIDCM No Action rasagiline 1 mg Tablet 1 mg PO DAILY Rx Instructions: GIVEN AT 0430 EVERY MORNING pramipexole [Mirapex] 1 mg Tablet 1 mg PO DAILY Rx Instructions: GIVE AT 0430 DAILY Referrals / Follow Up: Zana Vásquez MD [Primary Care Provider] - 07/19/22 2:20 pm Dameon Turner MD [Med Staff - Active Staff] - 07/15/22 3:15 pm Disposition Disposition (needs filled in before D/C Order can be placed): Home, Self Care Charges/Coding Visit Charges Inpatient E&M: 46489 Disch Hosp
[2022-07-12 13:40] VITALS: BP 144/86; PULSE 58; RESP 16; TEMP 36.3; O2SAT 98
--- NOTE | 2022-07-12 13:40 | NURSING ---
Discharge instruct provided and and patient verbalized understanding.
== END 2022-07-12 13:40 | disposition home or self-care (01) | DRG 561 ==
PROVIDERS: Admitting Provider Internal Medicine; PCP Family Medicine; Visit Provider Internal Medicine
DX: S72.001D Fracture of unspecified part of neck of right femur, subsequent encounter for closed fracture with routine healing (principal); E66.9 Obesity, unspecified; G20 Parkinson's disease; J44.9 Chronic obstructive pulmonary disease, unspecified; E78.5 Hyperlipidemia, unspecified; K21.9 Gastro-esophageal reflux disease without esophagitis; W01.0XXD Fall on same level from slipping, tripping and stumbling without subsequent striking against object, subsequent encounter; E89.0 Postprocedural hypothyroidism; G47.33 Obstructive sleep apnea (adult) (pediatric); F41.9 Anxiety disorder, unspecified; I10 Essential (primary) hypertension; G47.00 Insomnia, unspecified; H40.9 Unspecified glaucoma; F32.A Depression, unspecified; N40.0 Benign prostatic hyperplasia without lower urinary tract symptoms; Z68.33 Body mass index [BMI] 33.0-33.9, adult; Z79.899 Other long term (current) drug therapy; Z79.890 Hormone replacement therapy; Z79.82 Long term (current) use of aspirin
CPT/HCPCS: 36415; 73502; 80048; 81001; 82040; 83735; 84100; 85027; 87086; 92523; 97110; 97112; 97116; 97140; 97162; 97166; 97530; 97535; 97802; 97803; A4216

== ENCOUNTER 2022-08-13 17:36 | Inpatient (IN) | payer OTHER, MEDICARE, SELFPAY ==
[2022-08-13] VITALS (7 sets, daily range): BP systolic 84–112; BP diastolic 69–80; PULSE 93–127; RESP 18–32; TEMP 35.7–36.7; O2SAT 90–98; BMI 32.4; BMI 31.7
--- NOTE | 2022-08-13 18:27 | EKG12_ITS ---
Test Reason : PALPS Blood Pressure : / mmHG Vent. Rate : 107 BPM Atrial Rate : 000 BPM P-R Int : 000 ms QRS Dur : 086 ms QT Int : 286 ms P-R-T Axes : 000 -31 027 degrees QTc Int : 381 ms Atrial fibrillation with rapid ventricular response Left axis deviation Abnormal ECG Confirmed by EVELIN WALKER, GALLITO ([id number]), supervising editor news reel JOEY MACK ([id number]) on 08/14/2022 2:02:52 PM Referred By: SONYA Confirmed By:GALLITO WATERS MD
--- NOTE | 2022-08-13 18:29 | EX.ED.DYSGE1 ---
HPI History of Present Illness Chief Complaint: Palpitations Informant: patient Narrative Narrative: Sent in by PCP office today after evaluation for new onset A. fib. Patient reports was lightheaded today fell to the ground the driveway when going to doctors office. Unclear of any syncopal episodes no chest pains. Sinus congestion cough for 3 weeks. History of Parkinson's syndrome. He did have a fall in May right hip fracture with surgery he is back home he still going through therapy last therapy this coming Friday. Denies any history of dysrhythmias. Denies urinary symptoms denies vomiting or diarrhea. Decreased p.o. intake at home. Blood pressure in the 80s in the office. [facility] Medical History Anxiety Bladder disease BPH (benign prostatic hyperplasia) Cataract fragments in both eyes following surgery Chronic anxiety GERD (gastroesophageal reflux disease) Glaucoma History of stress test Hypertension Hypothyroidism Kidney stones Migraines Non-smoker Obesity (BMI 30-39.9) Obstructive Sleep Apnea-Hypopnea Syndrome Parkinsons Prostate disease Stage 2 moderate COPD by GOLD classification Wears glasses Home Medications bimatoprost 0.03 % drops with applicator, eyelash base 1 drp topical QHS eye drop 06/26/17 [History Last Taken 06/16/22] dorzolamide 22.3 mg-timolol 6.8 mg/mL eye drops 1 drp ophthalmic (eye) BID Eye drops 06/26/17 [History Last Taken 06/17/22] levothyroxine 200 mcg tablet 200 mcg PO DAILY hypothyroid 06/26/17 [History Last Taken 06/17/22] multivitamin 3 tab PO DAILY Supplement 11/19/19 [History Last Taken 11/18/19] carbidopa ER 48.75 mg-levodopa 195 mg capsule,extended release (Rytary) 3 cap PO 4XD SHAKES 04/24/22 [History Last Taken 06/17/22 13:45] carbidopa ER 50 mg-levodopa 200 mg tablet,extended release 1 tab PO QHS Check with primary doctor 04/24/22 [History Last Taken 06/16/22] lisinopril 10 mg tablet 10 mg PO DAILY BP 04/24/22 [History Last Taken 06/17/22] rasagiline 1 mg tablet 1 mg PO DAILY SHAKES 04/24/22 [History Last Taken 06/17/22] verapamil 300 mg capsule 24hr pellet CT,ext.release 300 mg PO DAILY BP 04/24/22 [History Last Taken 06/17/22] netarsudil 0.02 % eye drops 1 drp LEFT EYE QPM eyes 05/01/22 [History Last Taken 06/16/22] pramipexole 0.5 mg tablet (Mirapex) 0.5 mg PO BID SHAKES 05/01/22 [History Last Taken 06/17/22] pramipexole 1 mg tablet (Mirapex) 1 mg PO DAILY PARKINSONS 05/01/22 [History Last Taken 06/17/22] acetaminophen 500 mg tablet 1,000 mg PO Q8 Check with primary doctor 06/17/22 [History Last Taken 06/17/22 13:45] pramipexole 0.5 mg tablet 0.5 mg PO 1330 Check with primary doctor 06/17/22 [History Last Taken 06/17/22 13:45] aspirin 81 mg chewable tablet 81 mg PO DAILY Check with primary doctor #1 TAB 07/12/22 [Rx Last Taken 06/17/22 08:45] oxycodone 5 mg tablet 5 mg PO Q6H PRN PRN Pain Score 4-10 7 days #28 tabs 07/12/22 [Rx Last Taken Unknown] polyethylene glycol 3350 17 gram oral powder packet 17 g PO BID #60 ea 07/12/22 [Rx Last Taken Unknown] sennosides 8.6 mg-docusate sodium 50 mg capsule (Senna Plus) 2 tab-cap PO BID #120 caps 07/12/22 [Rx Last Taken Unknown] trazodone 100 mg tablet 100 mg PO QHS #30 tabs 07/12/22 [Rx Last Taken Unknown] Allergy/AdvReac Type Severity Reaction Status Date / Time varicella virus vaccine live Allergy Swelling Verified 06/15/22 21:51 [From Varivax (PF)] Family History Father Cancer Esophageal Diabetes VTE (venous thromboembolism) Multiple blood clots every time he went into the hospital. Pt can not recall whether the blood clots started before or after he was diagnosed with esophageal CA. Mother Diabetes Other COPD (chronic obstructive pulmonary disease) Surgical History Fusion of lumbar spine History of eye surgery History of thyroidectomy, subtotal Hx of bladder repair surgery Hx of colonoscopy S/P TURP Social History household members: spouse and other details: Spouse's name is Ludy. 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 Smoking Status: Never smoker alcohol intake: never substance use type: does not use ROS ROS ED Constitutional Constitutional ED: Denies chills, fever(s) or sweats Eyes Eyes: Denies change in vision ENT ENT ED: Denies dysphagia or sore throat Cardiovascular Cardiovascular: Reports other Details: Lightheaded symptoms ; Denies chest pain, leg edema, palpitations or racing heartbeat Respiratory/Chest Respiratory/Chest: Denies cough, dyspnea or dyspnea on exertion Gastrointestinal Gastrointestinal: Denies abdominal pain, diarrhea, nausea or vomiting Genitourinary Genitourinary ED: Denies dysuria, hematuria or urinary frequency Musculoskeletal Musculoskeletal: Denies back pain, extremity pain or neck pain Integumentary Denies rash or wounds Neurologic Neurologic: Denies headache(s), paresthesias or weakness EXAM Physical Exam Const Vital Signs: 08/13/22 17:37 08/13/22 17:50 08/13/22 18:31 Temperature 96.3 F L Temperature Source Temporal Pulse Rate 127 H 103 H Respiratory Rate 32 H 20 H Respiratory Effort Normal Non-Labored Respiratory Pattern Normal Blood Pressure 84/69 L Blood Pressure Mean 74 Pulse Ox 93 95 Oxygen Delivery Method Room Air Room Air 08/13/22 19:32 08/13/22 20:23 Temperature Temperature Source Pulse Rate 106 H 125 H Respiratory Rate 20 H 25 H Respiratory Effort Respiratory Pattern Blood Pressure 103/80 Blood Pressure Mean 87 Pulse Ox 94 90 Oxygen Delivery Method Room Air Room Air Positive well nourished and well developed General Appearance ED: well developed and NAD HEENT Reports dry mucous membranes normocephalic and atraumatic Mouth ED: Yes dry mucous membranes Mouth: dry mucous membranes Eyes PERRL, EOMs intact bilaterally and conjunctivae normal General Eye ED: Yes normal appearance of both eyes Neck no lymphadenopathy and supple General: Negative for tenderness Chest Wall Chest: Negative for tenderness Resp normal respiratory effort and normal air movement Effort and Inspection: symmetric chest movement; Negative for respiratory distress Cardio no murmurs Rate: tachycardic Rhythm: abnormal rhythm Peripheral Pulses: pulses 2+ throughout GI normal to inspection, nondistended, normoactive bowel sounds and non-tender Palpation: Negative for guarding or rebound tenderness present Back/Spine no CVA tenderness and no thoracic nor lumbar tenderness Extremity normal to inspection General Extremety ED: Negative for edema or tenderness General Extremity: Negative for edema Neuro oriented x3 and no sensory deficits noted Sensorium / Orientation: awake and alert Skin Skin Narrative: Healed incisions right hip region. Superficial abrasion and proximal anterior tib-fib on the right. No bleeding. No ecchymosis. MDM MDM MDM Narrative Medical decision making narrative: Patient presents hypotension 84/69 on arrival. Dry mucosal membranes. No recent vomiting diarrhea admits to decreased p.o. intake. He is nearly done with a liter of fluids blood pressure still in the 80s additional liter was given. EKG A. fib with RVR however rate was only 107. He reported upper respiratory symptoms for the past 3 weeks COVID-negative chest x-ray reviewed by myself and read by radiology shows no acute process. Urine did note signs of infection culture sent. His white count is 14.6. Hemoglobin 12.8. Creatinine 1.08 up from 0.77 previously. Blood pressure responding to fluids. He was given 1 dose of IV Lopressor on recheck heart rate in the 120s. After 1 dose heart rate in the 90s to low 100s. Blood pressure 106 systolic. [id number] score is a 2. I spoke with hospitalist Dr. Laboy for admission. We will give therapeutic Lovenox. I was asked by hospitalist to discuss with cardiology on-call to update. I spoke with Dr. Tabares updated patient's history and findings. He will see as an inpatient. Lab Data Attestation: I reviewed the patient's lab results. Labs: Laboratory Results - last 24 hr 08/13/22 08/13/22 08/13/22 17:40 17:40 17:40 WBC 14.6 H RBC 4.25 L Hgb 12.8 L Hct 40.6 MCV 95.5 H MCH 30.1 MCHC 31.5 L RDW Std Deviation 46.2 H RDW Coeff of Madisyn 13.2 Plt Count 459 H MPV 9.0 Immature Gran % (Auto) 0.500 Neut % (Auto) 74.8 H Lymph % (Auto) 16.2 L Culberson % (Auto) 7.8 Eos % (Auto) 0.4 Baso % (Auto) 0.3 Absolute Neuts (auto) 10.9 H Absolute Lymphs (auto) 2.35 Nucleated RBC % 0 Sodium 139 Potassium 4.1 Chloride 105 Carbon Dioxide 28.0 Anion Gap 6 BUN 27 H Creatinine 1.08 Estim Creat Clear Calc 71.93 Est GFR (MDRD) Af Amer 87 Est GFR (MDRD) Non-Af 72 BUN/Creatinine Ratio 25.0 H Glucose 95 Calcium 9.1 Magnesium 2.0 Total Bilirubin 0.50 AST 13 L ALT 7 L Alkaline Phosphatase 162 H Total Protein 7.1 Albumin 3.3 Globulin 3.8 Albumin/Globulin Ratio 0.9 Urine Color Urine Clarity Urine pH Ur Specific [place] Urine Protein Urine Glucose (UA) Urine Ketones Urine Occult Blood Urine Nitrite Urine Bilirubin Urine Urobilinogen Ur Leukocyte Esterase Urine RBC Urine WBC Ur Squamous Epith Cells Urine Bacteria Hyaline Casts Fine Granular Casts Urine Mucus 08/13/22 19:04 WBC RBC Hgb Hct MCV MCH MCHC RDW Std Deviation RDW Coeff of Madisyn Plt Count MPV Immature Gran % (Auto) Neut % (Auto) Lymph % (Auto) [place]bers[place] % (Auto) Eos % (Auto) Baso % (Auto) Absolute Neuts (auto) Absolute Lymphs (auto) Nucleated RBC % Sodium Potassium Chloride Carbon Dioxide Anion Gap BUN Creatinine Estim Creat Clear Calc Est GFR (MDRD) Af Amer Est GFR (MDRD) Non-Af BUN/Creatinine Ratio Glucose Calcium Magnesium Total Bilirubin AST ALT Alkaline Phosphatase Total Protein Albumin Globulin Albumin/Globulin Ratio Urine Color Yellow Urine Clarity Clear Urine pH 5.0 Ur Specific [place] 1.025 Urine Protein 30 H Urine Glucose (UA) Normal Urine Ketones 15 H Urine Occult Blood Negative Urine Nitrite Negative Urine Bilirubin Negative Urine Urobilinogen 1 H Ur Leukocyte Esterase 100 H Urine RBC 0-5 SEEN Urine WBC 10-25 SEEN Ur Squamous Epith Cells 5-10 SEEN Urine Bacteria 2+ Hyaline Casts 10-25 SEEN Fine Granular Casts 25-50 SEEN Urine Mucus 3+ Radiography Diagnostic Testing: Clinical Impression(s) from Imaging Studies Chest X-Ray 08/13/22 18:36 IMPRESSION: No acute cardiopulmonary pathology. Electronically Signed: Trip Hong MD at 18:59 EDT , EKG Initial EKG: Attestation: I personally reviewed and interpreted this EKG as follows: Comments: A. fib RVR 107, no ST or T wave changes. Discharge Plan Dx/Rx/DC Orders Clinical Impression: Atrial fibrillation with RVR, Parkinson's disease, Acute UTI, Acute renal insufficiency, Near syncope, Transient hypotension, Abrasion of leg, right Disposition Disposition: Acute Care Hospital [facility] Discharge Date/Time: 08/13/22 21:45
[2022-08-13 18:34] LABS: Absolute Lymphocyte Count 2.35 X10^3/uL (0.83-4.51); Absolute Neutrophil Count 10.9 X10^3/uL (2.0-7.7); Basophil# 0.05 X10^3/uL; Basophil% 0.3 % (0-1); Eosinophil# 0.06 X10^3/uL; Eosinophils% 0.4 % (0-5); Hematocrit 40.6 % (40-54); Hemoglobin 12.8 g/dL (13.0-16.5); Lymphocyte # 2.35 X10^3/ul (0.83-4.51); Lymphocyte % 16.2 % (19-41); Mean Corp Hgb Conc 31.5 g/dL (32-36); Mean Corpuscular Hgb 30.1 pg (27.0-32.0); Mean Corpuscular Volume 95.5 fL (80-94); Monocyte# 1.14 X10^3/uL; Monocyte% 7.8 % (0-10); NRBC Flagged by Analyzer 0 % (0-5); Neutrophil # 10.87 X10^3/uL (2.7-7.7); Neutrophil % 74.8 % (47-70); Platelet Count 459 K/mm3 (150-450); RBC Distribution Width CV 13.2 % (11.6-14.6); RBC Distribution Width SD 46.2 fl (35.1-43.9); Red Blood Count 4.25 M/mm3 (4.6-6.2); White Blood Count 14.6 K/mm3 (4.4-11.0)
--- NOTE | 2022-08-13 18:36 | RAD_ITS ---
STUDY: X-RAY CHEST REASON FOR EXAM: Male, 72 years old. cough TECHNIQUE: AP portable COMPARISON: 04/16/2019. FINDINGS: The lungs are clear and expanded. There is no demonstrated pleural abnormality. Normal size heart. Normal mediastinum and lazara. Normal visualized pulmonary arteries. Normal visualized aortic arch and descending thoracic aorta. Dorsal spine and shoulders demonstrate degenerative change. Normal visualized ribs, clavicles, and shoulders. There is no demonstrated abnormality of the visualized soft tissue structures of the upper abdomen. RAD/Chest 1 View (Portable) IMPRESSION: No acute cardiopulmonary pathology. Electronically Signed: Trip Hong MD at 18:59 EDT ,
[2022-08-13] MEDS: 0.9% Normal Saline 1,000 ML 1000 ML IV (18:38)
[2022-08-13 18:49] LABS: ALB/GLOB Ratio 0.9 RATIO (0.9-2.4); AST(SGOT) 13 U/L (15-37); Alanine Aminotransfer ALT/SGPT 7 U/L (16-61); Albumin, Serum 3.3 g/dL (3.2-5.0); Alkaline Phosphatase 162 U/L (45-117); Anion Gap 6 (5-15); BUN 27 mg/dL (7-18); Calcium,Total 9.1 mg/dL (8.5-10.1); Chloride 105 mmol/L (98-107); Creatinine, Serum 1.08 mg/dL (0.70-1.30); EST Glomerular Filtration Rate 72 mL/min (>60); Est Glom Filt Rate - Afr Amer 87 mL/min (>60); Estimated Creatinine Clearance 71.93 ml/min; Globulin 3.8 g/dL (2.2-4.2); Glucose 95 mg/dL (74-106); Potassium 4.1 mmol/L (3.5-5.1); Protein, Total 7.1 g/dL (6.4-8.2); Sodium Level 139 mmol/L (136-145)
[2022-08-13 19:24] LABS: Color, Urine Yellow (Yellow); Glucose, Dipstick Normal (Normal); Ketone-Dipstick 15 mg/dl (Negative); Leukocyte Esterase-Dipstick 100 /ul (Negative); Nitrite-Dipstick Negative (Negative); Occult Blood-Urine Negative /ul (Negative); Protein-Dipstick 30 mg/dl (Negative); Specific Gravity, Urine 1.025 (1.002-1.030); Urine Bilirubin Dipstick Negative (Negative); Urine Clarity Clear (Clear); Urine Urobilinogen 1 mg/dl (Normal)
[2022-08-13 19:34] LABS: White Blood Cells 10-25 SEEN /hpf (0-5)
[2022-08-13 19:35] LABS: Bacteria 2+ /hpf (None Seen); Mucous, Urine 3+ /hpf (<or=2+); Red Blood Cells-Urine 0-5 SEEN /hpf (0-5)
[2022-08-13 19:36] LABS: Fine Granular Cast- Urine 25-50 SEEN /lpf (0-5); Hyaline Cast 10-25 SEEN /lpf (0-5)
[2022-08-13 19:37] LABS: Squamous Epithelial Cells - UA 5-10 SEEN /hpf (0-5)
[2022-08-13] MEDS: Ceftriaxone 1 GM/50 ML BAG IV (20:33)
[2022-08-13] MEDS: Metoprolol Tartrate 5 MG/5 ML Vial IV (20:45)
--- NOTE | 2022-08-13 20:53 | PCM.HP.STD ---
[facility] - General General Date of Admission: 08/13/22 Date of Service: 08/13/22 Chief Complaint: Palpitations HPI Narrative JERED ESCOBAR, is a 72 M with a significant history of Parkinson disease; hypertension and who had right hip fracture status post pinning 2 months ago with follow-up rehabilitation with eventual discharge home presented to the emergency department with palpitation that started on the same day of presentation. Associated with symptom is nasal congestion; a productive cough with thick yellow sputum and malaise. The patient went to his PCPs on the same day on presentation. Patient fell to his knees at the PCPs office. Because PCP realized the patient was in A. fib; patient was sent to the emergency department. Patient report that both at home and at PCPs office patient blood pressure could not be obtained. At the emergency department patient was found to be hypotensive and received normal saline bolus. [facility] Medical History Anxiety Bladder disease BPH (benign prostatic hyperplasia) Cataract fragments in both eyes following surgery Chronic anxiety GERD (gastroesophageal reflux disease) Glaucoma History of stress test Hypertension Hypothyroidism Kidney stones Migraines Non-smoker Obesity (BMI 30-39.9) Obstructive Sleep Apnea-Hypopnea Syndrome Parkinsons Prostate disease Stage 2 moderate COPD by GOLD classification Wears glasses Home Medications bimatoprost 0.03 % drops with applicator, eyelash base 1 drp topical QHS eye drop 06/26/17 [History Last Taken 06/16/22] dorzolamide 22.3 mg-timolol 6.8 mg/mL eye drops 1 drp ophthalmic (eye) BID Eye drops 06/26/17 [History Last Taken 06/17/22] levothyroxine 200 mcg tablet 200 mcg PO DAILY hypothyroid 06/26/17 [History Last Taken 06/17/22] multivitamin 3 tab PO DAILY Supplement 11/19/19 [History Last Taken 11/18/19] carbidopa ER 48.75 mg-levodopa 195 mg capsule,extended release (Rytary) 3 cap PO 4XD SHAKES 04/24/22 [History Last Taken 06/17/22 13:45] carbidopa ER 50 mg-levodopa 200 mg tablet,extended release 1 tab PO QHS Check with primary doctor 04/24/22 [History Last Taken 06/16/22] lisinopril 10 mg tablet 10 mg PO DAILY BP 04/24/22 [History Last Taken 06/17/22] rasagiline 1 mg tablet 1 mg PO DAILY SHAKES 04/24/22 [History Last Taken 06/17/22] verapamil 300 mg capsule 24hr pellet CT,ext.release 300 mg PO DAILY BP 04/24/22 [History Last Taken 06/17/22] netarsudil 0.02 % eye drops 1 drp LEFT EYE QPM eyes 05/01/22 [History Last Taken 06/16/22] pramipexole 0.5 mg tablet (Mirapex) 0.5 mg PO BID SHAKES 05/01/22 [History Last Taken 06/17/22] pramipexole 1 mg tablet (Mirapex) 1 mg PO DAILY PARKINSONS 05/01/22 [History Last Taken 06/17/22] acetaminophen 500 mg tablet 1,000 mg PO Q8 Check with primary doctor 06/17/22 [History Last Taken 06/17/22 13:45] pramipexole 0.5 mg tablet 0.5 mg PO 1330 Check with primary doctor 06/17/22 [History Last Taken 06/17/22 13:45] aspirin 81 mg chewable tablet 81 mg PO DAILY Check with primary doctor #1 TAB 07/12/22 [Rx Last Taken 06/17/22 08:45] oxycodone 5 mg tablet 5 mg PO Q6H PRN PRN Pain Score 4-10 7 days #28 tabs 07/12/22 [Rx Last Taken Unknown] polyethylene glycol 3350 17 gram oral powder packet 17 g PO BID #60 ea 07/12/22 [Rx Last Taken Unknown] sennosides 8.6 mg-docusate sodium 50 mg capsule (Senna Plus) 2 tab-cap PO BID #120 caps 07/12/22 [Rx Last Taken Unknown] trazodone 100 mg tablet 100 mg PO QHS #30 tabs 07/12/22 [Rx Last Taken Unknown] Allergy/AdvReac Type Severity Reaction Status Date / Time varicella virus vaccine live Allergy Swelling Verified 06/15/22 21:51 [From Varivax (PF)] Family History Father Cancer Esophageal Diabetes VTE (venous thromboembolism) Multiple blood clots every time he went into the hospital. Pt can not recall whether the blood clots started before or after he was diagnosed with esophageal CA. Mother Diabetes Other COPD (chronic obstructive pulmonary disease) Surgical History Fusion of lumbar spine History of eye surgery History of thyroidectomy, subtotal Hx of bladder repair surgery Hx of colonoscopy S/P TURP Social History household members: spouse and other details: Spouse's name is Ludy. 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 Smoking Status: Never smoker alcohol intake: never substance use type: does not use ROS ROS Narrative Constitutional: Denies fever, chills, fatigue, anorexia and change in weight. Reports diaphoresis Eyes: Denies blurry vision, change in eye color, change in vision, discharge from eye(s), double vision, erythema, eye pain, loss of vision or other HEENT: Reports nasal congestion. Denies abnormal hearing, dysphagia, ear pain, epistaxis, headache(s), hearing loss, nasal discharge, or other Cardiovascular: Denies chest pain or palpitations. Denies dyspnea on exertion, orthopnea and paroxysmal nocturnal dyspnea Respiratory/Chest: Reports productive cough. Denies wheezing Gastrointestinal: Denies abdominal pain, coffee ground emesis, constipation, diarrhea, dyspepsia, hematemesis, hematochezia, loose stools, melena, nausea, vomiting or other Genitourinary: Denies burning urination, difficulty urinating, dysuria, hematuria, nocturia, urinary frequency, urinary hesitancy, urinary incontinence, urinary urgency or other Musculoskeletal: Reports right hip pain. Denies myalgia. Neurologic: Dyskinetic movements. Psychiatric: Denies anxiety, depression, homicidal ideation, suicidal ideation or other Endocrinology: Denies change in body appearance, cold intolerance, excessive sweating, heat intolerance, polydipsia, polyuria or other Hematologic/Lymphatic: Denies anemia, easy bleeding, easy bruising, lymphadenopathy or other Integumentary: Abrasion on bilateral knees. Denies rashes Allergic/Immunologic: Denies rhinitis, hives, eczema, or other Vital Signs Vital Signs Vital Signs: 08/13/22 17:37 08/13/22 17:50 08/13/22 18:31 Temperature 96.3 F L Temperature Source Temporal Pulse Rate 127 H 103 H Respiratory Rate 32 H 20 H Respiratory Effort Normal Non-Labored Respiratory Pattern Normal Blood Pressure 84/69 L Blood Pressure Mean 74 Pulse Ox 93 95 Oxygen Delivery Method Room Air Room Air 08/13/22 19:32 08/13/22 20:23 Temperature Temperature Source Pulse Rate 106 H 125 H Respiratory Rate 20 H 25 H Respiratory Effort Respiratory Pattern Blood Pressure 103/80 Blood Pressure Mean 87 Pulse Ox 94 90 Oxygen Delivery Method Room Air Room Air Weight Weight: 111.6 kg Body Mass Index (BMI) 32.4 Physical Exam Narrative Physical exam: General: Well-nourished, well-developed. Head: Normocephalic, atraumatic, no tenderness Eyes: Vision is grossly intact. EOMI ENT, no trauma, moist mucous membranes, no rhinorrhea Neck: Nontender, full range of motion. CVS: Regular rate and rhythm. S1-S2 present. No murmur, gallop or rub. Respiratory : clear to auscultation bilaterally, chest wall nontender, no wheezing Abdomen: Soft, nontender, nondistended, normal bowel sounds, no masses : Deferred Back: Nontender, no CVA tenderness. Extremities: Nontender full range of motion, no trauma Skin: Diaphoretic. Abrasions on bilateral knees; right worse than left. Neuro: Alert, oriented, cranial nerves II through XII grossly intact. Dyskinetic body movements. Psychiatry: Normal mood. Normal affect. Not depressed. Not anxious. Results Lab / Micro Data Result Diagrams: 08/13/22 17:40 08/13/22 17:40 Labs: Laboratory Results - last 24 hr 08/13/22 17:40: WBC 14.6 H, RBC 4.25 L, Hgb 12.8 L, Hct 40.6, MCV 95.5 H, MCH 30.1, MCHC 31.5 L, RDW Std Deviation 46.2 H, RDW Coeff of Madisyn 13.2, Plt Count 459 H, MPV 9.0, Immature Gran % (Auto) 0.500, Neut % (Auto) 74.8 H, Lymph % (Auto) 16.2 L, [place] % (Auto) 7.8, Eos % (Auto) 0.4, Baso % (Auto) 0.3, Absolute Neuts (auto) 10.9 H, Absolute Lymphs (auto) 2.35, Nucleated RBC % 0 08/13/22 17:40: Sodium 139, Potassium 4.1, Chloride 105, Carbon Dioxide 28.0, Anion Gap 6, BUN 27 H, Creatinine 1.08, Estim Creat Clear Calc 71.93, Est GFR (MDRD) Af Amer 87, Est GFR (MDRD) Non-Af 72, BUN/Creatinine Ratio 25.0 H, Glucose 95, Calcium 9.1, Total Bilirubin 0.50, AST 13 L, ALT 7 L, Alkaline Phosphatase 162 H, Total Protein 7.1, Albumin 3.3, Globulin 3.8, Albumin/Globulin Ratio 0.9 08/13/22 19:04: Urine Color Yellow, Urine Clarity Clear, Urine pH 5.0, Ur Specific [place] 1.025, Urine Protein 30 H, Urine Glucose (UA) Normal, Urine Ketones 15 H, Urine Occult Blood Negative, Urine Nitrite Negative, Urine Bilirubin Negative, Urine Urobilinogen 1 H, Ur Leukocyte Esterase 100 H, Urine RBC 0-5 SEEN, Urine WBC 10-25 SEEN, Ur Squamous Epith Cells 5-10 SEEN, Urine Bacteria 2+, Hyaline Casts 10-25 SEEN, Fine Granular Casts 25-50 SEEN, Urine Mucus 3+ Micro: Microbiology 08/13/22 18:31 Nasal Secretion SARS-CoV-2 Antigen (Rapid) - Final Radiology Impression Chest X-Ray 08/13/22 18:36 IMPRESSION: No acute cardiopulmonary pathology. Electronically Signed: Trip Hong MD at 18:59 EDT Reading Location ID and State: [facility] [place] / [place] , Service support , Assessment & Plan Assessment/Plan (1) Atrial fibrillation with RVR: (2) Acute UTI: (3) BECKY (acute kidney injury): PLAN: Plan Afib with RVR Notified by ED doctor that on monitor patient's heart rate was in the 130s; A. fib. EKG showed heart rate of 107, A. fib. Received Lopressor IV at emergency department Place on PCU on telemetry Obtain echo [id number] VASc score of at least 2. Lovenox 1 mg per kilogram subcutaneous every 12 hours Potassium normal. Check magnesium Checks x-ray was visualized and independent interpreted. No acute cardiopulmonary pathology. I agree with radiologist interpretation. Consult [facility] Hypotension Systolic blood pressure in the ED in the 80s. Improved with IV fluids. Parameters placed on home verapamil. Home lisinopril held for BECKY and hypotension. Trend blood pressures. Acute UTI Patient with abnormal urinalysis. CBC showed white count of 14.6 with neutrophilia; and lymphopenia. Denies urinary symptoms. In view of his constellation of symptoms ceftriaxone started emergency department and continued. Follow urine culture BECKY Creatinine on presentation was 1.08. Baseline creatinine is approximately 0.75. Gentle IV hydration ordered. Avoid nephrotoxins. Home lisinopril held. Trend BMP. Hypothyroidism In view of A. fib with RVR, TSH ordered. Levothyroxine continued. History of Right basicervical femoral neck hip fracture status post right hip nail Date of procedure 06/16/2022 As needed Tylenol ordered for pain. DVT prophylaxis: Not indicated as patient has been started on Lovenox for A. fib Charges/Coding Visit Charges Inpatient E&M: 81054 Init Hosp L3
[2022-08-13] MEDS: Enoxaparin 120 MG/0.8 ML Syringe SC (21:25)
--- NOTE | 2022-08-13 21:32 | ED.RN ---
pt's bp and hr wnl (106/86, 93). ok to give one dose of metoprolol, per dr hawkins
[2022-08-13] MEDS: 0.9% Normal Saline 1,000 ML 100 ML IV (22:08)
[2022-08-13] MEDS: Dorzolamide HCL/Timolol 10 ml Bottle 1 DRP LEFT EYE (22:11)
[2022-08-13] MEDS: guaiFENesin 1,200 MG Tablet 1200 MG PO (22:13)
[2022-08-13] MEDS: traZODone 100 MG Tablet PO (22:13)
[2022-08-13] MEDS: Latanoprost 0.005% 1 Bottle 1 DRP LEFT EYE (22:14)
[2022-08-13] MEDS: Senna/Docusate Sodium 1 Tablet PO (22:14)
[2022-08-13] MEDS: CLARIFY ORDER 1 EACH NOTE (22:14)
[2022-08-13] MEDS: CARBIDOPA/LEVODOPA CR 50/200 Tablet PO (22:14)
[2022-08-13] MEDS: Acetaminophen 500 MG Tablet 1000 MG PO (22:18)
[2022-08-14] VITALS (32 sets, daily range): BP systolic 99–136; BP diastolic 63–97; PULSE 72–130; RESP 13–24; TEMP 36.2–36.8; O2SAT 95–100
[2022-08-14] MEDS: Pramipexole Di-HCl 1 MG Tablet PO (04:32)
--- NOTE | 2022-08-14 05:46 | NURSING ---
Pt takes Rytary (carbidopa 48.75 mg/levodopa 195 mg) at home 4x daily. This medication is nonformulary and pt states his can bring it in later today for pharmacy to verify. However, pt takes 4 capsules Rytary at 0430, and states that it is very important for him to receive this. Pt did have his medications in a pill organizer with him on admission. Pt asked if he could take it from there since his had not brought the bottle in yet. Pharmacy unable to verify medication since it wasn't in the original bottle. This RN spoke w/ Dr. Laboy and he gave permission to allow pt to take the 4 Rytary pills from his organizer. This RN also verified medication via drug identifier online and with patient. Patient states that he will have his bring the bottle in later today.
--- NOTE | 2022-08-14 05:55 | ECHOD_ITS ---
Reason For Study: AFIB Procedure This was a 2D Doppler, Color Flow transthoracic echocardiogram. The exam was of adequate technical quality. Exam performed in department. Left Ventricle Normal LV size. Left ventricular systolic function is normal. The estimated ejection fraction is 70 %. Unable to assess diastolic dysfunction due to arrhythmia. No regional wall motion abnormalities noted. Right Ventricle Normal RV size. Normal systolic function. Atria Normal left atrium. Normal right atrium. No doppler evidence for ASD. Mitral Valve There is no mitral annular calcification. Normal mitral valve. Trivial mitral valve insufficiency. Tricuspid Valve Normal tricuspid valve. Mild tricuspid valve insufficiency. Right ventricular systolic pressure estimated to be 34 mmHg. Aortic Valve Trisinus/trileaflet aortic valve. Mild focal aortic valve calcification. Pulmonic Valve The pulmonic valve is not well visualized. Trivial pulmonic valve insufficiency. Great Vessels Normal sized aortic root. Pericardium/Pleural No pericardial effusion. MMode/2D Measurements & Calculations LVIDd: 4.2 cm IVSd: 1.1 cm Ao root diam: 3.6 cm LVIDs: 1.9 cm LVPWd: 2.0 cm RVDd: 4.5 cm FS: 55.0 % LAV(MOD-bp): 71.9 ml LVAd ap4: 28.2 cm2 SV(MOD-sp4): 53.6 ml LAV(MOD-bp) Indexed: 30.9 ml/m2 LVLd ap4: 8.0 cm LAV(MOD-sp2): 83.3 ml EDV(MOD-sp4): 79.1 ml LAV(MOD-sp4): 52.8 ml EDV(sp4-el): 83.6 ml LVAs ap4: 13.1 cm2 LVLs ap4: 6.4 cm ESV(MOD-sp4): 25.5 ml ESV(sp4-el): 23.0 ml EF(MOD-sp4): 67.8 % EF(sp4-el): 72.5 % SV(sp4-el): 60.6 ml LA A4 area: 19.1 cm2 LA dimension(2D): 3.4 cm RA A4 area: 22.1 cm2 Doppler Measurements & Calculations MV E max abad: 91.0 cm/sec Ao V2 max: 155.5 cm/sec LV V1 max: 108.4 cm/sec Ao max P.7 mmHg LV V1 max P.7 mmHg Ao V2 mean: 105.0 cm/sec LV V1 mean P.8 mmHg Ao mean P.1 mmHg LV V1 mean: 78.4 cm/sec Ao V2 VTI: 24.2 cm LV V1 VTI: 16.9 cm PA V2 max: 86.6 cm/sec TR max abad: 279.2 cm/sec PA V2 mean: 61.1 cm/sec TR max P.2 mmHg ECHO/Echo Complete Interpretation Summary Left ventricular systolic function is normal. The estimated ejection fraction is 70 %. Trivial mitral valve insufficiency. Mild tricuspid valve insufficiency. Mild focal aortic valve calcification. Trivial pulmonic valve insufficiency. Right ventricular systolic pressure estimated to be 34 mmHg. Unable to assess diastolic dysfunction due to arrhythmia. Ordering Physician: Romulo Laboy Referring Physician: Zana Vásquez Performed By: Abbey Abarca RCS
[2022-08-14] MEDS: Levothyroxine 100 MCG Tablet 200 MCG PO (06:03)
[2022-08-14 06:33] LABS: Absolute Lymphocyte Count 2.22 X10^3/uL (0.83-4.51); Absolute Neutrophil Count 4.4 X10^3/uL (2.0-7.7); Basophil# 0.05 X10^3/uL; Basophil% 0.7 % (0-1); Eosinophil# 0.07 X10^3/uL; Eosinophils% 0.9 % (0-5); Hematocrit 36.4 % (40-54); Hemoglobin 11.5 g/dL (13.0-16.5); Lymphocyte # 2.22 X10^3/ul (0.83-4.51); Lymphocyte % 30.1 % (19-41); Mean Corp Hgb Conc 31.6 g/dL (32-36); Mean Corpuscular Hgb 30.7 pg (27.0-32.0); Mean Corpuscular Volume 97.1 fL (80-94); Mean Platelet Vol. 8.9 fl (6.2-12.0); Monocyte# 0.64 X10^3/uL; Monocyte% 8.7 % (0-10); NRBC Flagged by Analyzer 0 % (0-5); Neutrophil # 4.37 X10^3/uL (2.7-7.7); Neutrophil % 59.3 % (47-70); Platelet Count 362 K/mm3 (150-450); RBC Distribution Width CV 13.3 % (11.6-14.6); RBC Distribution Width SD 47.6 fl (35.1-43.9); Red Blood Count 3.75 M/mm3 (4.6-6.2); White Blood Count 7.4 K/mm3 (4.4-11.0)
[2022-08-14 07:05] LABS: Anion Gap 4 (5-15); BUN 27 mg/dL (7-18); BUN/Creat Ratio 38.6 RATIO (10-20); Chloride 108 mmol/L (98-107); EST Glomerular Filtration Rate 119 mL/min (>60); Est Glom Filt Rate - Afr Amer 144 mL/min (>60); Estimated Creatinine Clearance 77.68 ml/min; Glucose 92 mg/dL (74-106); Potassium 4.1 mmol/L (3.5-5.1); Sodium Level 141 mmol/L (136-145); Thyroid Stim Hormone (TSH) 0.09 uIU/mL (0.358-3.74)
[2022-08-14] MEDS: 0.9% Normal Saline 1,000 ML 100 ML IV ×2 (07:40→20:00)
[2022-08-14] MEDS: Aspirin 81 MG TAB.CHEW PO (07:42)
[2022-08-14] MEDS: Multivitamins,Therapeutic Tablet 1 TABLET PO (07:42)
--- NOTE | 2022-08-14 09:10 | PCM.CONS.C ---
Assessment & Plan Assessment/Plan (1) Atrial fibrillation with RVR: PLAN: The patient presented with atrial fibrillation with RVR. The etiology may be multifactorial secondary to the patient's age, history of hypertension, superimposed upon the patient's recent noncardiac surgical procedures. There may be also concern as the patient has undergone recent noncardiac surgical procedures and hospitalizations as to whether or not there could be any thromboembolic disease such as pulmonary emboli which would contribute to this finding despite his lack of acute respiratory related symptoms. Also, the duration of the atrial fibrillation is uncertain, however, based upon the patient's history it may have initiated yesterday. At the present time the patient is being monitored. It would not be unreasonable to obtain a D-dimer level. If this is abnormal the patient would be considered for a chest CTA to evaluate for any thromboembolic disease that would be a contributing factor. The patient is also to undergo further evaluation of his cardiac anatomy and function with a transthoracic echocardiogram. In the interim it would be reasonable to continue medical management. This could include attempt at rate control therapy with agents such as beta-blockers and/or calcium channel antagonist. It may be reasonable, especially if it is thought the atrial fibrillation initiated yesterday, to attempt regaining sinus rhythm with an agent such as IV amiodarone. The patient will also continue anticoagulant therapy with adjustment as deemed appropriate. Ideally the patient would be on long-term oral systemic anticoagulant therapy as long as the risk factor benefit is felt to be in his favor taking into consideration his Parkinson's disease and any concerns of potential falls/injuries. (2) Transient hypotension: PLAN: The patient was noted to have transient hypotension. Is unclear as to whether this was related to his atrial dysrhythmia. At the same time according to the [facility] ED staff in the hospital staff there was concerns about possible decreased intravascular volume and dehydration. The patient was treated as noted above with improvement in his blood pressure. (3) HTN (hypertension): PLAN: The patient is reported as having a history of hypertension. He has been on medical therapy with a a calcium channel antagonist (verapamil) as well as PHAN inhibitor (lisinopril). These medications can be adjusted as deemed appropriate. (4) Parkinson's disease: PLAN: The patient has a history of Parkinson's disease. This would have to be taken into consideration with respect to his ongoing cardiovascular evaluation and care. Addt'l Comments The patient's case was discussed and reviewed with the patient and previously with the [facility] emergency department staff. This note was generated using a voice recognition system and there may be incorrect words, spelling or punctuation that were not noted when reviewing the office note prior to saving. 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 The patient states to the best of his knowledge he has no previous cardiovascular history/diagnosis. It appears he did undergo a pharmacologic stress nuclear imaging study on 12-13-2012 at [facility] which was reported as a normal pharmacologic myocardial perfusion scan with a preserved ejection fraction of 65%. He states that he has been told in the past on physical examinations that he has a irregular heartbeat . He did have ECGs performed at [facility] in January and May of this year which were reported as demonstrating sinus rhythm at that time. He states that yesterday he did not feel well. He felt somewhat more lightheaded. He states that he did feel as if his heart may have been going faster. After a while he felt better then worse again. Based upon feeling worse he requested an outpatient visit with his PCP group. This was performed. An ECG was obtained which demonstrated atrial fibrillation. He was subsequent recommended to be evaluated in the emergency department. In the [facility] emergency department he was evaluated and found to be in atrial fibrillation. There was concerns of hypotension. For his atrial fibrillation and hypotension he was treated with a combination of IV Lopressor and IV fluids. He was reported as having slowing of his ventricular rate and improvement of his blood pressure. He was subsequently treated with additional medical therapy with subcutaneous enoxaparin/Lovenox. He was recommended for further inpatient evaluation and care. The patient states that he does not recall having any chest discomfort. He does not recall having any respiratory symptoms with respect to acute shortness of breath/dyspnea. He has denied any ongoing longstanding lower extremity peripheral pitting edema. There is been no report of near syncope or syncope. He states while walking from his automobile, with his walker, into the PCP office he subsequently felt as if he went down to his knees but did not lose consciousness. He states he was assisted upright and was able to continue walking into the office. He notes that he does not usually have falling episodes and/or associated injuries. His ED evaluation demonstrated that he had an elevated WBC. There was concerns of a UTI. There were also concerns based upon respiratory related symptoms as to whether or not he may have had an underlying pulmonary disease process present. His chest x-ray was reported as clear by radiology. He states this morning he feels good . He has not sensed any of the symptoms that he had yesterday. Based upon his cardiac quality assurance monitor final he remains in atrial fibrillation with variable ventricular response. He has not received any additional rate limiting therapy, antiarrhythmic therapy, but has continued with orders for work anticoagulation therapy with enoxaparin/Lovenox. He has also been requested to have further evaluation with a transthoracic echocardiogram. [facility] Medical History Anxiety Bladder disease BPH (benign prostatic hyperplasia) Cataract fragments in both eyes following surgery Chronic anxiety GERD (gastroesophageal reflux disease) Glaucoma History of stress test Hypertension Hypothyroidism Kidney stones Migraines Non-smoker Obesity (BMI 30-39.9) Obstructive Sleep Apnea-Hypopnea Syndrome Parkinsons Prostate disease Stage 2 moderate COPD by GOLD classification Wears glasses Home Medications bimatoprost 0.03 % drops with applicator, eyelash base 1 drp topical QHS eye drop 06/26/17 [History Last Taken 06/16/22] dorzolamide 22.3 mg-timolol 6.8 mg/mL eye drops 1 drp ophthalmic (eye) BID Eye drops 06/26/17 [History Last Taken 06/17/22] levothyroxine 200 mcg tablet 200 mcg PO DAILY hypothyroid 06/26/17 [History Last Taken 06/17/22] multivitamin 3 tab PO DAILY Supplement 11/19/19 [History Last Taken 11/18/19] carbidopa ER 48.75 mg-levodopa 195 mg capsule,extended release (Rytary) 3 cap PO 4XD SHAKES 04/24/22 [History Last Taken 06/17/22 13:45] carbidopa ER 50 mg-levodopa 200 mg tablet,extended release 1 tab PO QHS Check with primary doctor 04/24/22 [History Last Taken 06/16/22] lisinopril 10 mg tablet 10 mg PO DAILY BP 04/24/22 [History Last Taken 06/17/22] rasagiline 1 mg tablet 1 mg PO DAILY SHAKES 04/24/22 [History Last Taken 06/17/22] verapamil 300 mg capsule 24hr pellet CT,ext.release 300 mg PO DAILY BP 04/24/22 [History Last Taken 06/17/22] netarsudil 0.02 % eye drops 1 drp LEFT EYE QPM eyes 05/01/22 [History Last Taken 06/16/22] pramipexole 0.5 mg tablet (Mirapex) 0.5 mg PO BID SHAKES 05/01/22 [History Last Taken 06/17/22] pramipexole 1 mg tablet (Mirapex) 1 mg PO DAILY PARKINSONS 05/01/22 [History Last Taken 06/17/22] acetaminophen 500 mg tablet 1,000 mg PO Q8 Check with primary doctor 06/17/22 [History Last Taken 06/17/22 13:45] pramipexole 0.5 mg tablet 0.5 mg PO 1330 Check with primary doctor 06/17/22 [History Last Taken 06/17/22 13:45] aspirin 81 mg chewable tablet 81 mg PO DAILY Check with primary doctor #1 TAB 07/12/22 [Rx Last Taken 06/17/22 08:45] oxycodone 5 mg tablet 5 mg PO Q6H PRN PRN Pain Score 4-10 7 days #28 tabs 07/12/22 [Rx Last Taken Unknown] polyethylene glycol 3350 17 gram oral powder packet 17 g PO BID #60 ea 07/12/22 [Rx Last Taken Unknown] sennosides 8.6 mg-docusate sodium 50 mg capsule (Senna Plus) 2 tab-cap PO BID #120 caps 07/12/22 [Rx Last Taken Unknown] trazodone 100 mg tablet 100 mg PO QHS #30 tabs 07/12/22 [Rx Last Taken Unknown] Allergy/AdvReac Type Severity Reaction Status Date / Time varicella virus vaccine live Allergy Swelling Verified 06/15/22 21:51 [From Varivax (PF)] Family History Father Cancer Esophageal Diabetes VTE (venous thromboembolism) Multiple blood clots every time he went into the hospital. Pt can not recall whether the blood clots started before or after he was diagnosed with esophageal CA. Mother Diabetes Other COPD (chronic obstructive pulmonary disease) Surgical History Fusion of lumbar spine History of eye surgery History of thyroidectomy, subtotal Hx of bladder repair surgery Hx of colonoscopy S/P TURP Social History household members: spouse and other details: Spouse's name is Ludy. 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 Smoking Status: Never smoker alcohol intake: never substance use type: does not use ROS Constitutional Constitutional: Reports as per HPI Eyes Eyes: Reports as per HPI ENT HEENT: Reports as per HPI Cardiovascular Cardiovascular: Reports lightheadedness and palpitations Respiratory/Chest Respiratory/Chest: Reports as per HPI Gastrointestinal Gastrointestinal: Reports as per HPI Genitourinary Genitourinary: Reports as per HPI Musculoskeletal Musculoskeletal: Reports as per HPI Integumentary Integumentary: Reports as per HPI Neurologic Neurologic: Reports as per HPI Psychiatric Psychiatric: Reports as per HPI Physical Exam Const alert, oriented x3 and no apparent distress HEENT normocephalic, head/scalp atraumatic and hearing grossly normal bilaterally Eyes PERRL, EOMs intact bilaterally, conjunctivae normal and no scleral icterus Neck full ROM, supple and no JVD Carotids: normal carotid upstroke Resp normal respiratory effort and clear to auscultation bilaterally Cardio Rhythm: abnormal rhythm irregularly irregular Heart Sounds: S1 normal and S2 normal GI normal to inspection, nondistended, normoactive bowel sounds Extremity no pedal edema Skin no rashes or lesions noted Psych mental status grossly normal Risk Stratification Risk Stratification Applicable: Yes Age >/= 65: Yes >/= 3 CAD Risk Factors (HTN, HLD, DM, family hx of CAD, or current smoker): No Aspirin Use in the Past 7 Days: Yes Severe Angina (>/= episodes in 24 hours): No EKG ST Changes >/= 0.5mm: No Positive Cardiac Marker: No XIOMARA Risk Stratification Score: 2 XIOMARA % Risk: 8% Risk Procedure Criteria Type of Procedure Procedure Type: Elective Elective Risks - COVID COVID Risk Discussion: The surgeon/proceduralist and patient have discussed in detail the risk of exposure to and/or potential harm posed by the COVID-19 virus with having a surgery/procedure at this time versus the risk of delaying the surgery/procedure. It is not possible to know either the risk of delaying the surgery or procedure or chance of getting an infection with perfect accuracy, but a joint decision was made between the patient and the surgeon/proceduralist to proceed at this time with the scheduled surgery/procedure as indicated on the consent form. Objective Data Vital Signs: Vital Signs Temp Pulse Resp BP Pulse Ox O2 Del Method 98.1 F 93 18 112/67 98 Room Air 08/14/22 08:08/14/22 08:26 08/14/22 08:08/14/22 08:08/14/22 08:08/14/22 08:26 Oxygen Delivery Method Room Air Weight: 240 lb 11.916 oz Body Mass Index (BMI) 31.7 Intake & Output: Intake and Output for Last 24 Hours 08/12/22 08/13/22 08/14/22 23:59 23:59 23:59 Intake Total 1050 / 1450 1653.33 / 1653.33 Output Total 200 / 200 Balance 1050 / 1450 1453.33 / 1453.33 Lab / Micro Data Result Diagrams: 08/14/22 05:45 08/14/22 05:45 Labs: Laboratory Results - last 24 hr 08/13/22 17:40: WBC 14.6 H, RBC 4.25 L, Hgb 12.8 L, Hct 40.6, MCV 95.5 H, MCH 30.1, MCHC 31.5 L, RDW Std Deviation 46.2 H, RDW Coeff of Madisyn 13.2, Plt Count 459 H, MPV 9.0, Immature Gran % (Auto) 0.500, Neut % (Auto) 74.8 H, Lymph % (Auto) 16.2 L, [place] % (Auto) 7.8, Eos % (Auto) 0.4, Baso % (Auto) 0.3, Absolute Neuts (auto) 10.9 H, Absolute Lymphs (auto) 2.35, Nucleated RBC % 0 08/13/22 17:40: Sodium 139, Potassium 4.1, Chloride 105, Carbon Dioxide 28.0, Anion Gap 6, BUN 27 H, Creatinine 1.08, Estim Creat Clear Calc 71.93, Est GFR (MDRD) Af Amer 87, Est GFR (MDRD) Non-Af 72, BUN/Creatinine Ratio 25.0 H, Glucose 95, Calcium 9.1, Total Bilirubin 0.50, AST 13 L, ALT 7 L, Alkaline Phosphatase 162 H, Total Protein 7.1, Albumin 3.3, Globulin 3.8, Albumin/Globulin Ratio 0.9 08/13/22 17:40: Magnesium 2.0 08/13/22 19:04: Urine Color Yellow, Urine Clarity Clear, Urine pH 5.0, Ur Specific [place] 1.025, Urine Protein 30 H, Urine Glucose (UA) Normal, Urine Ketones 15 H, Urine Occult Blood Negative, Urine Nitrite Negative, Urine Bilirubin Negative, Urine Urobilinogen 1 H, Ur Leukocyte Esterase 100 H, Urine RBC 0-5 SEEN, Urine WBC 10-25 SEEN, Ur Squamous Epith Cells 5-10 SEEN, Urine Bacteria 2+, Hyaline Casts 10-25 SEEN, Fine Granular Casts 25-50 SEEN, Urine Mucus 3+ 08/14/22 05:45: WBC 7.4, RBC 3.75 L, Hgb 11.5 L, Hct 36.4 L, MCV 97.1 H, MCH 30.7, MCHC 31.6 L, RDW Std Deviation 47.6 H, RDW Coeff of Madisyn 13.3, Plt Count 362, MPV 8.9, Immature Gran % (Auto) 0.300, Neut % (Auto) 59.3, Lymph % (Auto) 30.1, [place] % (Auto) 8.7, Eos % (Auto) 0.9, Baso % (Auto) 0.7, Absolute Neuts (auto) 4.4, Absolute Lymphs (auto) 2.22, Nucleated RBC % 0 08/14/22 05:45: Sodium 141, Potassium 4.1, Chloride 108 H, Carbon Dioxide 29.0, Anion Gap 4 L, BUN 27 H, Creatinine 0.70, Estim Creat Clear Calc 77.68, Est GFR (MDRD) Af Amer 144, Est GFR (MDRD) Non-Af 119, BUN/Creatinine Ratio 38.6 H, Glucose 92, Calcium 8.0 L, TSH 0.09 L Micro: Microbiology 08/13/22 18:31 Nasal Secretion SARS-CoV-2 Antigen (Rapid) - Final Cardiology Labs/Tests 08/13/22 17:40: WBC 14.6 H, RBC 4.25 L, Hgb 12.8 L, Hct 40.6, MCV 95.5 H, MCH 30.1, MCHC 31.5 L, Plt Count 459 H, MPV 9.0, Immature Gran % (Auto) 0.500, Neut % (Auto) 74.8 H, Lymph % (Auto) 16.2 L, [place] % (Auto) 7.8, Eos % (Auto) 0.4, Baso % (Auto) 0.3, Absolute Neuts (auto) 10.9 H, Nucleated RBC % 0 08/13/22 17:40: Sodium 139, Potassium 4.1, Chloride 105, Carbon Dioxide 28.0, Anion Gap 6, BUN 27 H, Creatinine 1.08, Est GFR (MDRD) Af Amer 87, Est GFR (MDRD) Non-Af 72, BUN/Creatinine Ratio 25.0 H, Glucose 95, Calcium 9.1, Total Bilirubin 0.50 08/13/22 17:40: Magnesium 2.0 08/13/22 19:04: Urine Color Yellow, Urine Clarity Clear, Urine pH 5.0, Ur Specific [place] 1.025, Urine Protein 30 H, Urine Glucose (UA) Normal, Urine Ketones 15 H, Urine Occult Blood Negative, Urine Nitrite Negative, Urine Bilirubin Negative, Urine Urobilinogen 1 H, Ur Leukocyte Esterase 100 H, Urine RBC 0-5 SEEN, Urine WBC 10-25 SEEN 08/14/22 05:45: WBC 7.4, RBC 3.75 L, Hgb 11.5 L, Hct 36.4 L, MCV 97.1 H, MCH 30.7, MCHC 31.6 L, Plt Count 362, MPV 8.9, Immature Gran % (Auto) 0.300, Neut % (Auto) 59.3, Lymph % (Auto) 30.1, [place] % (Auto) 8.7, Eos % (Auto) 0.9, Baso % (Auto) 0.7, Absolute Neuts (auto) 4.4, Nucleated RBC % 0 08/14/22 05:45: Sodium 141, Potassium 4.1, Chloride 108 H, Carbon Dioxide 29.0, Anion Gap 4 L, BUN 27 H, Creatinine 0.70, Est GFR (MDRD) Af Amer 144, Est GFR (MDRD) Non-Af 119, BUN/Creatinine Ratio 38.6 H, Glucose 92, Calcium 8.0 L Rhythm: Atrial fibrillation EKG: Atrial fibrillation ECHO: Pending Stress Test: As noted above Radiography Diagnostic Testing: Radiology Impression Chest X-Ray 08/13/22 18:36 IMPRESSION: No acute cardiopulmonary pathology. Electronically Signed: Trip Hong MD at 18:59 EDT ,
--- NOTE | 2022-08-14 09:25 | NURSING ---
This RN gave pt's home medication, Rytary 3 capsules from pt's home pill organizer per nursing communication order.
[2022-08-14] MEDS: guaiFENesin 1,200 MG Tablet 1200 MG PO ×2 (09:31→21:59)
[2022-08-14] MEDS: Pramipexole Di-HCl 0.5 MG Tablet PO ×2 (09:32→12:46)
[2022-08-14] MEDS: Senna/Docusate Sodium 1 Tablet PO ×2 (09:32→22:02)
[2022-08-14] MEDS: Enoxaparin 120 MG/0.8 ML Syringe 110 MG SC ×2 (09:33→22:00)
[2022-08-14] MEDS: Dorzolamide HCL/Timolol 10 ml Bottle 1 DRP LEFT EYE ×2 (09:34→22:12)
[2022-08-14] MEDS: Acetaminophen 500 MG Tablet 1000 MG PO (10:05)
--- NOTE | 2022-08-14 10:35 | CASEMGMT ---
GREGG PEREZ assessment: Face to Face with patient for initial transition planning/care coordination assessment. GREGG PEREZ introduced self and role at [facility], pt voices understanding and consents to assessment. Pt is A/Ox4 and answers all questions appropriately. Pt is lying in bed in no distress on room air.? Care providers, pharmacy,?and demographics verified. ? Presentation: Pt sent from PCP office for new onset afib, dizziness, fall, hypotensive in office Admitting dx: New onset Afib RVR, UTI, hypotension PCP: Thalia Specialists: emily Tsang for parkinsons; More podiatry Preferred Pharmacy: [facility] Insurance: [employer] A Prescription Benefit:? Yes Living Will/HPOA: Pt has LW/HPOA and is aware that they are on file at [facility]. Pt's , Ludy Antunez, is listed as HPOA. LNOK: Ludy Antunez, /HPOA Living Arrangements: Pt lives with in 1 story home and states no concerns at home. Pt is independent with ADL's. Transportation: Pt's drives and states no transportation concerns. Pt states had recent hip fx in May 2022 and is still off work for same. DME/HHC: Pt has a [employer] and grab bars. Pt states no need for any further DME. Pt states has been to IP rehab recently for hip fx and then was set up with OP therapy at [facility]. Pt states no concerns with going home at time of discharge. 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 Pt does not smoke cigarettes or drink ETOH. Pt states no further concerns/needs. CM to follow for anti-coagulant and any further discharge planning/needs. Advised pt to ask for CM if any further questions/concerns/needs arise, voices understanding. Pt Goal: Home ? Plan[place] GREGG PEREZ
[2022-08-14] MEDS: Amiodarone 360 MG in Dextrose 5% Viaflo Bag 192.8 ML 33.3 MG CONT INF (10:52)
[2022-08-14 11:15] LABS: D-Dimer Quantitative (DVT/PE) 0.92 FEU/ug/m (0.27-0.49)
--- NOTE | 2022-08-14 11:56 | CT_ITS ---
STUDY: CTA CHEST REASON FOR EXAM: Male, 72 years old. Abnormal D Dimer; atrial fibrillation; r/o PE RADIATION DOSAGE (If Supplied By Facility): CTDIvol = ( 11.47 ) mGy, DLP = ( 525.80 ) mGycm TECHNIQUE: The examination was performed with the intravenous administration of IV 100mL [id number]-370. Post-processing of the angiographic images was performed, with multiplanar reformation and 3D reconstruction. Individualized dose optimization techniques were used for this CT. COMPARISON: Comparison is made with prior chest radiograph dated 08/13/2022. FINDINGS: Normal enhancement of the main pulmonary artery and right and left pulmonary arteries. Normal enhancement of the bilateral peripheral pulmonary arteries. There is no demonstrated pulmonary embolism. Normal thoracic aorta and visualized great vessels. There is no demonstrated aortic dissection. There are calcifications of the coronary arteries. Normal mediastinum. Normal hilar regions. Normal visualized trachea and bronchi. The lungs are well expanded. Mild degree of increased markings at the lung bases suggestive of a atelectasis and/or infiltrate slightly worse on the left lung base. Normal pleura. Normal chest wall structures. There are degenerative changes of thoracic spine. There is a 1.4 cm hypodensity in the posterior aspect of the right lobe liver suggestive of a small cyst. CT/CTA Chest W/WO Contrast IMPRESSION: No evidence of pulmonary embolism. Increased markings at the lung bases most prominent at the left lung base suggestive of bibasilar atelectasis. Electronically Signed: Og Esquivel MD at 13:10 EDT ,
[2022-08-14] MEDS: VERAPAMIL HCL 300 MG CAP24H.PCT PO (12:46)
[2022-08-14] MEDS: CARBIDOPA/LEVODOPA 1 EACH CAPSULE.ER 3 EACH PO ×2 (12:47→18:08)
--- NOTE | 2022-08-14 13:28 | PN.HOSP_ITS ---
Documented by User: Destiny Mccrary NP, NETWORK SECURITY CONSULTANT-C 08/14/22 13:41 Subjective Subjective Patient seen and examined. States he feels fatigued. Denies chest pain, shortness of breath, palpitations. Denies other symptoms or complaints. Objective Data Objective Data Vital Signs: Vital Signs Temp Pulse Resp BP Pulse Ox O2 Del Method 97.9 F 102 H 22 H 110/83 H 99 Room Air 08/14/22 10:52 08/14/22 11:00 08/14/22 11:00 08/14/22 11:00 08/14/22 11:00 08/14/22 11:00 Oxygen Delivery Method Room Air Weight: 240 lb 11.916 oz Body Mass Index (BMI) 31.7 Intake & Output: Intake and Output for Last 24 Hours 08/12/22 08/13/22 08/14/22 23:59 23:59 23:59 Intake Total 1050 / 1450 2260.77 / 2260.77 Output Total 200 / 200 Balance 1050 / 1450 2060.77 / 2060.77 Lab / Micro Data Result Diagrams: 08/14/22 05:45 08/14/22 05:45 Labs: Laboratory Results - last 24 hr 08/13/22 17:40: WBC 14.6 H, RBC 4.25 L, Hgb 12.8 L, Hct 40.6, MCV 95.5 H, MCH 30.1, MCHC 31.5 L, RDW Std Deviation 46.2 H, RDW Coeff of Madisyn 13.2, Plt Count 459 H, MPV 9.0, Immature Gran % (Auto) 0.500, Neut % (Auto) 74.8 H, Lymph % (Auto) 16.2 L, [place] % (Auto) 7.8, Eos % (Auto) 0.4, Baso % (Auto) 0.3, Absolute Neuts (auto) 10.9 H, Absolute Lymphs (auto) 2.35, Nucleated RBC % 0 08/13/22 17:40: Sodium 139, Potassium 4.1, Chloride 105, Carbon Dioxide 28.0, Anion Gap 6, BUN 27 H, Creatinine 1.08, Estim Creat Clear Calc 71.93, Est GFR (MDRD) Af Amer 87, Est GFR (MDRD) Non-Af 72, BUN/Creatinine Ratio 25.0 H, Glucose 95, Calcium 9.1, Total Bilirubin 0.50, AST 13 L, ALT 7 L, Alkaline Phosphatase 162 H, Total Protein 7.1, Albumin 3.3, Globulin 3.8, Albumin/Globulin Ratio 0.9 08/13/22 17:40: Magnesium 2.0 08/13/22 19:04: Urine Color Yellow, Urine Clarity Clear, Urine pH 5.0, Ur Specific [place] 1.025, Urine Protein 30 H, Urine Glucose (UA) Normal, Urine Ketones 15 H, Urine Occult Blood Negative, Urine Nitrite Negative, Urine Bilirubin Negative, Urine Urobilinogen 1 H, Ur Leukocyte Esterase 100 H, Urine RBC 0-5 SEEN, Urine WBC 10-25 SEEN, Ur Squamous Epith Cells 5-10 SEEN, Urine Bacteria 2+, Hyaline Casts 10-25 SEEN, Fine Granular Casts 25-50 SEEN, Urine Mucus 3+ 08/14/22 05:45: WBC 7.4, RBC 3.75 L, Hgb 11.5 L, Hct 36.4 L, MCV 97.1 H, MCH 30.7, MCHC 31.6 L, RDW Std Deviation 47.6 H, RDW Coeff of Madisyn 13.3, Plt Count 362, MPV 8.9, Immature Gran % (Auto) 0.300, Neut % (Auto) 59.3, Lymph % (Auto) 30.1, [place] % (Auto) 8.7, Eos % (Auto) 0.9, Baso % (Auto) 0.7, Absolute Neuts (auto) 4.4, Absolute Lymphs (auto) 2.22, Nucleated RBC % 0 08/14/22 05:45: Sodium 141, Potassium 4.1, Chloride 108 H, Carbon Dioxide 29.0, Anion Gap 4 L, BUN 27 H, Creatinine 0.70, Estim Creat Clear Calc 77.68, Est GFR (MDRD) Af Amer 144, Est GFR (MDRD) Non-Af 119, BUN/Creatinine Ratio 38.6 H, Glucose 92, Calcium 8.0 L, TSH 0.09 L 08/14/22 10:55: D-Dimer Quant (PE/DVT) 0.92 H* Micro: Microbiology 08/13/22 19:04 Urine, Clean Catch Urine Culture - Preliminary Culture exhibits no growth. 08/13/22 18:31 Nasal Secretion SARS-CoV-2 Antigen (Rapid) - Final Radiography Diagnostic Testing: Radiology Impression Chest X-Ray 08/13/22 18:36 IMPRESSION: No acute cardiopulmonary pathology. Electronically Signed: Trip Hong MD at 18:59 EDT , Echocardiogram 08/14/22 05:55 Interpretation Summary Left ventricular systolic function is normal. The estimated ejection fraction is 70 %. Trivial mitral valve insufficiency. Mild tricuspid valve insufficiency. Mild focal aortic valve calcification. Trivial pulmonic valve insufficiency. Right ventricular systolic pressure estimated to be 34 mmHg. Unable to assess diastolic dysfunction due to arrhythmia. Ordering Physician: Romulo Laboy Referring Physician: Zana Vásquez Performed By: Abbey Abarca RCS Chest CTA 08/14/22 11:56 IMPRESSION: No evidence of pulmonary embolism. Increased markings at the lung bases most prominent at the left lung base suggestive of bibasilar atelectasis. Electronically Signed: Og Esquivel MD at 13:10 EDT , Physical Exam Const alert and oriented x3 HEENT normocephalic and moist oral mucous membranes Eyes PERRL, EOMs intact bilaterally and conjunctivae normal Neck no lymphadenopathy Resp normal respiratory effort and clear to auscultation bilaterally Cardio no murmurs Cardio Narrative: A. fib with RVR Peripheral Pulses: pulses 2+ throughout GI normal to inspection, nondistended, normoactive bowel sounds, non-tender and non-distended Extremity normal to inspection Skin no rashes or lesions noted Lesions: no lesions Rashes: no rashes Trauma: no lacerations or abrasions Neuro CN's II-XII intact bilaterally, no focal motor deficits, no sensory deficits no cal and deep tendon reflexes 2+ bilaterally Psych mental status grossly normal and affect normal Assessment & Plan Assessment/Plan (1) Atrial fibrillation with RVR: PLAN: Plan 1.? New onset A. fib with RVR-cardiology consulted. Therapeutic Lovenox. Echocardiogram with EF 70%. IV amiodarone. Patient will need NOAC at discharge. 2.? Acute UTI-ruled out. Urine culture with no growth. DC Rocephin. 3. Parkinson's Disease-continue home carbidopa/levodopa regimen. 4. Glaucoma-continue home medication. 5. Hypothyroidism-continue Synthroid. TSH low. Check T4 6. Obstructive sleep apnea-continue home CPAP regimen. 7. Anxiety-continue home regimen. 9. Hypertension-continue BP regimen with hold parameters. DVT prophylaxis-Lovenox sc This patient was seen by INÉS Brock under the supervision of Dr. Rice. Time spent examining patient, reviewing data and subsequent management of care: 15 minutes Documented by User: Dr. Griffin Rice, 08/14/22 14:20 Objective Data Lab / Micro Data Result Diagrams: 08/14/22 05:45 08/14/22 05:45 Assessment & Plan Assessment/Plan (1) Atrial fibrillation with RVR: Charges/Coding Addendum Addendum: Patient seen and examined independently. Data and vitals reviewed. I agree with the above note by the nurse practitioner. Feels well. No acute distress and afebrile. Heart rate irregularly irregular. Lungs are clear to auscultation bilaterally. Abdomen is soft nontender nondistended with normal bowel sounds. Assessment and plan 1. Atrial fibrillation with RVR: Ongoing. Started on amiodarone drip. Cardiology following. 2D echocardiogram showed an EF of 70%. Visit Charges Inpatient E&M: 78494 Subs Hosp L2
[2022-08-14 14:05] LABS: T4 Free Direct 1.47 ng/dL (0.76-1.46)
[2022-08-14] MEDS: Digoxin 250 MCG/ML Ampul 500 MCG IV (14:30)
[2022-08-14] MEDS: 0.9% Saline Lock 10 ML Syringe IV (14:31)
[2022-08-14] MEDS: Amiodarone 360 MG in Dextrose 5% Viaflo Bag 192.8 ML 16.7 MG CONT INF (16:34)
[2022-08-14] MEDS: Latanoprost 0.005% 1 Bottle 1 DRP LEFT EYE (21:58)
[2022-08-14] MEDS: traZODone 100 MG Tablet PO (22:00)
[2022-08-14] MEDS: NETARSUDIL MESYLATE 1 DRP OPHTHALMIC (22:01)
[2022-08-14] MEDS: CARBIDOPA/LEVODOPA CR 50/200 Tablet PO (22:02)
[2022-08-14] MEDS: Digoxin 250 MCG/ML Ampul IV (22:13)
[2022-08-15] VITALS (29 sets, daily range): BP systolic 91–130; BP diastolic 62–95; PULSE 73–100; RESP 14–34; TEMP 35.8–36.9; O2SAT 94–100
[2022-08-15] MEDS: Amiodarone 360 MG in Dextrose 5% Viaflo Bag 192.8 ML 16.7 MG CONT INF (04:25)
[2022-08-15] MEDS: Pramipexole Di-HCl 1 MG Tablet PO (04:33)
[2022-08-15] MEDS: CARBIDOPA/LEVODOPA 1 EACH CAPSULE.ER 4 EACH PO (04:34)
[2022-08-15] MEDS: 0.9% Normal Saline 1,000 ML 100 ML IV (05:38)
[2022-08-15] MEDS: Levothyroxine 100 MCG Tablet 200 MCG PO (05:57)
[2022-08-15 06:41] LABS: Absolute Lymphocyte Count 1.98 X10^3/uL (0.83-4.51); Absolute Neutrophil Count 3.1 X10^3/uL (2.0-7.7); Basophil# 0.03 X10^3/uL; Basophil% 0.5 % (0-1); Eosinophil# 0.11 X10^3/uL; Eosinophils% 1.9 % (0-5); Hemoglobin 11.6 g/dL (13.0-16.5); Lymphocyte # 1.98 X10^3/ul (0.83-4.51); Lymphocyte % 33.8 % (19-41); Mean Corp Hgb Conc 31.4 g/dL (32-36); Mean Corpuscular Hgb 30.5 pg (27.0-32.0); Mean Corpuscular Volume 97.4 fL (80-94); Mean Platelet Vol. 8.8 fl (6.2-12.0); Monocyte# 0.58 X10^3/uL; Monocyte% 9.9 % (0-10); NRBC Flagged by Analyzer 0 % (0-5); Neutrophil # 3.14 X10^3/uL (2.7-7.7); Neutrophil % 53.6 % (47-70); Platelet Count 350 K/mm3 (150-450); RBC Distribution Width CV 13.4 % (11.6-14.6); RBC Distribution Width SD 47.8 fl (35.1-43.9); White Blood Count 5.9 K/mm3 (4.4-11.0)
[2022-08-15 07:17] LABS: Anion Gap 6 (5-15); BUN 12 mg/dL (7-18); BUN/Creat Ratio 17.9 RATIO (10-20); Calcium,Total 8.1 mg/dL (8.5-10.1); Chloride 108 mmol/L (98-107); Creatinine, Serum 0.67 mg/dL (0.70-1.30); EST Glomerular Filtration Rate 124 mL/min (>60); Est Glom Filt Rate - Afr Amer 151 mL/min (>60); Estimated Creatinine Clearance 77.68 ml/min; Glucose 102 mg/dL (74-106); Potassium 3.9 mmol/L (3.5-5.1); Sodium Level 141 mmol/L (136-145)
--- NOTE | 2022-08-15 08:24 | PN.HOSP_ITS ---
Subjective Subjective Feels very hyperactive with his parkinson's. This is typical for him. Objective Data Objective Data Vital Signs: Vital Signs Temp Pulse Resp BP Pulse Ox O2 Del Method 35.9 C L 91 20 H 102/62 94 Room Air 08/15/22 07:30 08/15/22 08:00 08/15/22 08:00 08/15/22 08:00 08/15/22 08:00 08/15/22 08:06 Oxygen Delivery Method Room Air Weight: 109.2 kg Body Mass Index (BMI) 31.7 Intake & Output: Intake and Output for Last 24 Hours 08/13/22 08/14/22 08/15/22 23:59 23:59 23:59 Intake Total 1050 / 1450 3963.77 / 3980.47 1113.63 / 1113.63 Output Total 1575 / 1575 400 / 400 Balance 1050 / 1450 2388.77 / 2405.47 713.63 / 713.63 Lab / Micro Data Result Diagrams: 08/15/22 06:05 08/15/22 06:05 Labs: Laboratory Results - last 24 hr 08/14/22 05:45: Free T4 1.47 H 08/14/22 10:55: D-Dimer Quant (PE/DVT) 0.92 H* 08/15/22 06:05: WBC 5.9, RBC 3.80 L, Hgb 11.6 L, Hct 37.0 L, MCV 97.4 H, MCH 30.5, MCHC 31.4 L, RDW Std Deviation 47.8 H, RDW Coeff of Madisyn 13.4, Plt Count 350, MPV 8.8, Immature Gran % (Auto) 0.300, Neut % (Auto) 53.6, Lymph % (Auto) 33.8, [place] % (Auto) 9.9, Eos % (Auto) 1.9, Baso % (Auto) 0.5, Absolute Neuts (auto) 3.1, Absolute Lymphs (auto) 1.98, Nucleated RBC % 0 08/15/22 06:05: Sodium 141, Potassium 3.9, Chloride 108 H, Carbon Dioxide 27.0, Anion Gap 6, BUN 12, Creatinine 0.67 L, Estim Creat Clear Calc 77.68, Est GFR (MDRD) Af Amer 151, Est GFR (MDRD) Non-Af 124, BUN/Creatinine Ratio 17.9, Glucose 102, Calcium 8.1 L Micro: Microbiology 08/13/22 19:04 Urine, Clean Catch Urine Culture - Preliminary Culture exhibits no growth. 08/13/22 18:31 Nasal Secretion SARS-CoV-2 Antigen (Rapid) - Final Radiography Diagnostic Testing: Radiology Impression Echocardiogram 08/14/22 05:55 Interpretation Summary Left ventricular systolic function is normal. The estimated ejection fraction is 70 %. Trivial mitral valve insufficiency. Mild tricuspid valve insufficiency. Mild focal aortic valve calcification. Trivial pulmonic valve insufficiency. Right ventricular systolic pressure estimated to be 34 mmHg. Unable to assess diastolic dysfunction due to arrhythmia. Ordering Physician: Romulo Laboy Referring Physician: Zana Vásquez Performed By: Abbey Abarca RCS Chest CTA 08/14/22 11:56 IMPRESSION: No evidence of pulmonary embolism. Increased markings at the lung bases most prominent at the left lung base suggestive of bibasilar atelectasis. Electronically Signed: Og Esquivel MD at 13:10 EDT , Physical Exam Neck no lymphadenopathy Resp normal respiratory effort, no retractions, no use of accessory muscles and clear to auscultation bilaterally Cardio regular rate, regular rhythm and S1 normal heart sound GI normal to inspection, nondistended, normoactive bowel sounds and soft to palpation Extremity normal to inspection Psych affect normal Assessment & Plan Assessment/Plan (1) Atrial fibrillation with RVR: PLAN: Ongoing.? Started on amiodarone drip.? Cardiology following.? 2D echocardiogram showed an EF of 70%. Cardiology on consult PLAN: Plan Acute UTI-ruled out. Urine culture with no growth. DC Rocephin. Chronic conditions: * Parkinson's Disease-continue home carbidopa/levodopa regimen. * Glaucoma-continue home medication. * Hypothyroidism-continue Synthroid. TSH low. Check T4 * Obstructive sleep apnea-continue home CPAP regimen. * Anxiety-continue home regimen. * Hypertension-continue BP regimen with hold parameters. DVT prophylaxis-Lovenox sc Charges/Coding Visit Charges Inpatient E&M: 93301 Subs Hosp L2
[2022-08-15] MEDS: Multivitamins,Therapeutic Tablet 1 TABLET PO (09:14)
[2022-08-15] MEDS: Senna/Docusate Sodium 1 Tablet PO ×2 (09:14→22:01)
[2022-08-15] MEDS: Pramipexole Di-HCl 0.5 MG Tablet PO ×2 (09:14→14:31)
[2022-08-15] MEDS: Aspirin 81 MG TAB.CHEW PO (09:14)
[2022-08-15] MEDS: guaiFENesin 1,200 MG Tablet 1200 MG PO ×2 (09:14→22:00)
[2022-08-15] MEDS: Dorzolamide HCL/Timolol 10 ml Bottle 1 DRP LEFT EYE ×2 (09:15→22:00)
[2022-08-15] MEDS: CARBIDOPA/LEVODOPA 1 EACH CAPSULE.ER 3 EACH PO ×3 (09:16→18:27)
[2022-08-15] MEDS: Enoxaparin 120 MG/0.8 ML Syringe 110 MG SC ×2 (09:18→22:00)
--- NOTE | 2022-08-15 09:33 | PN.CARD_ITS ---
Subjective Subjective The patient nena awake and alert. He states he feels better today. He has no new acute complaints. Objective Data Vital Signs: Vital Signs Temp Pulse Resp BP Pulse Ox O2 Del Method 96.7 F L 92 24 H 114/72 96 Room Air 08/15/22 07:30 08/15/22 09:32 08/15/22 09:00 08/15/22 09:32 08/15/22 09:00 08/15/22 09:00 Oxygen Delivery Method Room Air Weight: 240 lb 11.916 oz Body Mass Index (BMI) 31.7 Intake & Output: Intake and Output for Last 24 Hours 08/13/22 08/14/22 08/15/22 23:59 23:59 23:59 Intake Total 1050 / 1450 3963.77 / 3980.47 1130.33 / 1130.33 Output Total 1575 / 1575 400 / 400 Balance 1050 / 1450 2388.77 / 2405.47 730.33 / 730.33 Lab / Micro Data Result Diagrams: 08/15/22 06:05 08/15/22 06:05 Labs: Laboratory Results - last 24 hr 08/14/22 05:45: Free T4 1.47 H 08/14/22 10:55: D-Dimer Quant (PE/DVT) 0.92 H* 08/15/22 06:05: WBC 5.9, RBC 3.80 L, Hgb 11.6 L, Hct 37.0 L, MCV 97.4 H, MCH 30.5, MCHC 31.4 L, RDW Std Deviation 47.8 H, RDW Coeff of Madisyn 13.4, Plt Count 350, MPV 8.8, Immature Gran % (Auto) 0.300, Neut % (Auto) 53.6, Lymph % (Auto) 33.8, [place] % (Auto) 9.9, Eos % (Auto) 1.9, Baso % (Auto) 0.5, Absolute Neuts (auto) 3.1, Absolute Lymphs (auto) 1.98, Nucleated RBC % 0 08/15/22 06:05: Sodium 141, Potassium 3.9, Chloride 108 H, Carbon Dioxide 27.0, Anion Gap 6, BUN 12, Creatinine 0.67 L, Estim Creat Clear Calc 77.68, Est GFR (MDRD) Af Amer 151, Est GFR (MDRD) Non-Af 124, BUN/Creatinine Ratio 17.9, Glucose 102, Calcium 8.1 L Micro: Microbiology 08/13/22 19:04 Urine, Clean Catch Urine Culture - Preliminary Culture exhibits no growth. Cardiology Labs/Tests 08/14/22 10:55: D-Dimer Quant (PE/DVT) 0.92 H* 08/15/22 06:05: WBC 5.9, RBC 3.80 L, Hgb 11.6 L, Hct 37.0 L, MCV 97.4 H, MCH 30.5, MCHC 31.4 L, Plt Count 350, MPV 8.8, Immature Gran % (Auto) 0.300, Neut % (Auto) 53.6, Lymph % (Auto) 33.8, [place] % (Auto) 9.9, Eos % (Auto) 1.9, Baso % (Auto) 0.5, Absolute Neuts (auto) 3.1, Nucleated RBC % 0 08/15/22 06:05: Sodium 141, Potassium 3.9, Chloride 108 H, Carbon Dioxide 27.0, Anion Gap 6, BUN 12, Creatinine 0.67 L, Est GFR (MDRD) Af Amer 151, Est GFR (MDRD) Non-Af 124, BUN/Creatinine Ratio 17.9, Glucose 102, Calcium 8.1 L Rhythm: Atrial fibrillation Radiography Diagnostic Testing: Radiology Impression Echocardiogram 08/14/22 05:55 Interpretation Summary Left ventricular systolic function is normal. The estimated ejection fraction is 70 %. Trivial mitral valve insufficiency. Mild tricuspid valve insufficiency. Mild focal aortic valve calcification. Trivial pulmonic valve insufficiency. Right ventricular systolic pressure estimated to be 34 mmHg. Unable to assess diastolic dysfunction due to arrhythmia. Ordering Physician: Romulo Laboy Referring Physician: Zana Vásquez Performed By: Abbey Abarca RCS Chest CTA 08/14/22 11:56 IMPRESSION: No evidence of pulmonary embolism. Increased markings at the lung bases most prominent at the left lung base suggestive of bibasilar atelectasis. Electronically Signed: Og Esquivel MD at 13:10 EDT , Physical Exam Const alert, oriented x3 and no apparent distress HEENT normocephalic, head/scalp atraumatic and hearing grossly normal bilaterally Eyes PERRL, EOMs intact bilaterally, conjunctivae normal and no scleral icterus Neck full ROM, supple and no JVD Carotids: normal carotid upstroke Resp normal respiratory effort and clear to auscultation bilaterally Cardio Rhythm: abnormal rhythm irregularly irregular Heart Sounds: S1 normal and S2 normal GI normal to inspection, nondistended, normoactive bowel sounds Extremity no pedal edema Skin no rashes or lesions noted Psych mental status grossly normal Assessment & Plan Assessment/Plan (1) Atrial fibrillation with RVR: PLAN: The patient presented with atrial fibrillation with RVR. The etiology may be multifactorial secondary to the patient's age, history of hypertension, superimposed upon the patient's recent noncardiac surgical procedures. There may be also concern as the patient has undergone recent noncardiac surgical procedures and hospitalizations as to whether or not there could be any thromboembolic disease such as pulmonary emboli which would contribute to this finding despite his lack of acute respiratory related symptoms. The patient has undergone further evaluation with a transthoracic echocardiogram. The results are noted. At the present time the patient will continue rate control therapy with adjustment of his rate control medications from his calcium channel antagonist to a beta-miley. He will also continue his antiarrhythmic therapy with attempts at regaining sinus rhythm with adjustment of his IV medication to oral medication. He will continue his current anticoagulant therapy. If it does not appear he requires any other invasive evaluation or care then he will be altered to an oral anticoagulant. (2) Transient hypotension: PLAN: The patient was noted to have transient hypotension. Is unclear as to whether this was related to his atrial dysrhythmia. At the same time according to the [facility] ED staff in the hospital staff there was concerns about possible decreased intravascular volume and dehydration. The patient was treated as noted above with improvement in his blood pressure. His blood pressures medications will be adjusted over time. (3) HTN (hypertension): PLAN: His blood pressures have not been elevated at this time. His medications will continue to be adjusted. (4) Parkinson's disease: PLAN: The patient has a history of Parkinson's disease. This would have to be taken into consideration with respect to his ongoing car diovascular evaluation and care. Addt'l Comments This note was generated using a voice recognition system and there may be incorrect words, spelling or punctuation that were not noted when reviewing the office note prior to saving.
[2022-08-15] MEDS: Acetaminophen 500 MG Tablet 1000 MG PO (09:37)
[2022-08-15] MEDS: Metoprolol Tartrate 50 MG Tablet PO ×2 (09:38→21:59)
--- NOTE | 2022-08-15 11:47 | CASEMGMT ---
Patient has a Healthcare Power of Metal Door Assembler and a Healthcare Living Will on file at [facility]. Patient's Healthcare Power of Metal Door Assembler is his Ludy. Gale BEE
[2022-08-15] MEDS: Amiodarone 200 MG Tablet PO ×2 (14:37→22:00)
--- NOTE | 2022-08-15 19:29 | PN_ITS ---
Sepsis Attestation Supportive Findings: The patient presented with sepsis due to [infection] with acute sepsis related organ dysfunction as evidenced by [organ dysfunction/s - list below]. Organ Dysfunction Criteria * SBP < 90 mmHg or MAP < 65 mmHg * SBP decrease of more than 40 mmHg * Acute Respiratory Failure -> New need for BiPAP/CPAP or mechanical ventilation * Creatinine > 2.0 mg/dL * UOP < 0.5 mL/kg/hour for 2 consecutive hours * Total Bili > 2 mg/dL * Platelet < 100,000 * INR > 1.5 or aPTT > 60 sec * Lactate > 2 mmol/LThe patient presented with sepsis due to [infection] with acute sepsis related organ dysfunction as evidenced by [organ dysfunction/s - list below]. Organ Dysfunction Criteria * SBP < 90 mmHg or MAP < 65 mmHg * SBP decrease of more than 40 mmHg * Acute Respiratory Failure -> New need for BiPAP/CPAP or mechanical ventilation * Creatinine > 2.0 mg/dL * UOP < 0.5 mL/kg/hour for 2 consecutive hours * Total Bili > 2 mg/dL * Platelet < 100,000 * INR > 1.5 or aPTT > 60 sec * Lactate > 2 mmol/L Fluid resuscitation [was/was not] ordered for patient. Fluid resuscitation [wa s/was not] ordered at a volume of 30 mLs/kg due to [see Fluid Volume Resuscitation below]. Fluid Volume Resuscitation * Concern for fluid overload * Heart Failure * Renal Failure * BP responded to a lesser volume * Patient has an implanted VAD * Patient or authorized advocate refused IV fluid administration * * Fluid resuscitation [was/was not] ordered for patient. Fluid resuscitation [was/was not] ordered at a volume of 30 mLs/kg due to [see list below]. Potential reasons for adjusting volume of Fluid Resuscitation Concern for fluid overload Heart Failure Renal Failure BP responded to a lesser volume Patient has an implanted VAD Patient or authorized advocate refused IV fluid administration
--- NOTE | 2022-08-15 19:29 | PCM.PN.BLA ---
Sepsis Attestation Supportive Findings: The patient presented with sepsis due to [infection] with acute sepsis related organ dysfunction as evidenced by [organ dysfunction/s - list below]. Organ Dysfunction Criteria SBP < 90 mmHg or MAP < 65 mmHg SBP decrease of more than 40 mmHg Acute Respiratory Failure -> New need for BiPAP/CPAP or mechanical ventilation Creatinine > 2.0 mg/dL UOP < 0.5 mL/kg/hour for 2 consecutive hours Total Bili > 2 mg/dL Platelet < 100,000 INR > 1.5 or aPTT > 60 sec Lactate > 2 mmol/LThe patient presented with sepsis due to [infection] with acute sepsis related organ dysfunction as evidenced by [organ dysfunction/s - list below]. Organ Dysfunction Criteria SBP < 90 mmHg or MAP < 65 mmHg SBP decrease of more than 40 mmHg Acute Respiratory Failure -> New need for BiPAP/CPAP or mechanical ventilation Creatinine > 2.0 mg/dL UOP < 0.5 mL/kg/hour for 2 consecutive hours Total Bili > 2 mg/dL Platelet < 100,000 INR > 1.5 or aPTT > 60 sec Lactate > 2 mmol/L Fluid resuscitation [was/was not] ordered for patient. Fluid resuscitation [was/was not] ordered at a volume of 30 mLs/kg due to [see Fluid Volume Resuscitation below]. Fluid Volume Resuscitation Concern for fluid overload Heart Failure Renal Failure BP responded to a lesser volume Patient has an implanted VAD Patient or authorized advocate refused IV fluid administration Fluid resuscitation [was/was not] ordered for patient. Fluid resuscitation [was/was not] ordered at a volume of 30 mLs/kg due to [see list below]. Potential reasons for adjusting volume of Fluid Resuscitation Concern for fluid overload Heart Failure Renal Failure BP responded to a lesser volume Patient has an implanted VAD Patient or authorized advocate refused IV fluid administration
[2022-08-15] MEDS: traZODone 100 MG Tablet PO (22:00)
[2022-08-15] MEDS: CARBIDOPA/LEVODOPA CR 50/200 Tablet PO (22:01)
[2022-08-15] MEDS: NETARSUDIL MESYLATE 1 DRP OPHTHALMIC (22:01)
[2022-08-15] MEDS: BENZOCAINE/MENTHOL 1 LOZENGE MUCOUS MEM (22:02)
[2022-08-15] MEDS: Latanoprost 0.005% 1 Bottle 1 DRP LEFT EYE (22:02)
[2022-08-16 03:00] VITALS: BP 131/99; PULSE 68; RESP 12; TEMP 36.6; O2SAT 97
[2022-08-16] MEDS: Pramipexole Di-HCl 1 MG Tablet PO (04:30)
[2022-08-16] MEDS: CARBIDOPA/LEVODOPA 1 EACH CAPSULE.ER 4 EACH PO (04:31)
[2022-08-16] MEDS: Levothyroxine 100 MCG Tablet 200 MCG PO (05:26)
[2022-08-16] MEDS: Amiodarone 200 MG Tablet PO (05:26)
[2022-08-16 07:32] VITALS: PULSE 95
--- NOTE | 2022-08-16 08:05 | PCM.PN.CARD ---
Subjective Subjective The patient states he is feeling well. He has no new acute complaints from a cardiovascular standpoint. Objective Data Vital Signs: Vital Signs Temp Pulse Resp BP Pulse Ox O2 Del Method 97.8 F 95 12 131/99 H 97 CPAP 08/16/22 03:00 08/16/22 07:32 08/16/22 03:00 08/16/22 03:00 08/16/22 03:00 08/16/22 03:21 Oxygen Delivery Method CPAP Weight: 240 lb 11.916 oz Body Mass Index (BMI) 31.7 Intake & Output: Intake and Output for Last 24 Hours 08/14/22 08/15/22 08/16/22 23:59 23:59 23:59 Intake Total 3963.77 / 3980.47 2938.79 / 2938.79 400 / 400 Output Total 1575 / 1575 3125 / 3125 825 / 825 Balance 2388.77 / 2405.47 -186.21 / -186.21 -425 / -425 Lab / Micro Data Result Diagrams: 08/15/22 06:05 08/15/22 06:05 Cardiology Labs/Tests Rhythm: Atrial fibrillation EKG: ECHO: Stress Test: Cardiac Cath: PCI: CT Surgery: Holter monitor: EPS: PPM: CXR: Chest CT Scan: Physical Exam Const alert, oriented x3 and no apparent distress HEENT normocephalic, head/scalp atraumatic and hearing grossly normal bilaterally Eyes PERRL, EOMs intact bilaterally, conjunctivae normal and no scleral icterus Neck full ROM, supple and no JVD Carotids: normal carotid upstroke Resp normal respiratory effort and clear to auscultation bilaterally Cardio Rhythm: abnormal rhythm irregularly irregular Heart Sounds: S1 normal and S2 normal GI normal to inspection, nondistended, normoactive bowel sounds Extremity no pedal edema Skin no rashes or lesions noted Psych mental status grossly normal Assessment & Plan Assessment/Plan (1) Atrial fibrillation with RVR: PLAN: The patient presented with atrial fibrillation with RVR. The etiology may be multifactorial secondary to the patient's age, history of hypertension, superimposed upon the patient's recent noncardiac surgical procedures. There may be also concern as the patient has undergone recent noncardiac surgical procedures and hospitalizations as to whether or not there could be any thromboembolic disease such as pulmonary emboli which would contribute to this finding despite his lack of acute respiratory related symptoms. The patient has undergone further evaluation with a transthoracic echocardiogram. The results are noted. The patient's medications have been adjusted. His calcium channel antagonist has been placed on hold. He has been placed on a beta-miley to assist with rate control. His IV amiodarone has been converted to oral amiodarone. As his rate appears to have come under better control and there are no immediate plans for any additional invasive evaluation at this time it appears his subcutaneous anticoagulant can be changed to an oral anticoagulant such as apixaban/Eliquis. As he appears to be symptomatically stable and his heart rate has come under better control and his blood pressure appears to be stable at this time the tentative plan will be to continue medical therapy for rate control, antiarrhythmic control, and anticoagulant therapy with future outpatient cardiovascular follow-up with plans to consider synchronized biphasic DC cardioversion in the future if the patient does not convert to sinus rhythm in the interim. (2) Transient hypotension: PLAN: The patient was noted to have transient hypotension. Is unclear as to whether this was related to his atrial dysrhythmia. At the same time according to the [facility] ED staff in the hospital staff there was concerns about possible decreased intravascular volume and dehydration. The patient was treated as noted above with improvement in his blood pressure. As his blood pressure has improved he will reinitiate his antihypertensive therapy. (3) HTN (hypertension): PLAN: As the patient's blood pressure has elevated it would be reasonable to reinitiate his antihypertensive therapy with his lisinopril as long as tolerated. (4) Parkinson's disease: PLAN: The patient has a history of Parkinson's disease. This would have to be taken into consideration with respect to his ongoing cardiovascular evaluation and care. Addt'l Comments Overall, from a cardiovascular standpoint, the patient does appear to be symptomatically and hemodynamically improved compared to admission. He will continue combined medical management as noted. The tentative plan will be if he remains stable for the patient to be released home for continued outpatient follow-up. The above was discussed and reviewed with the patient. This note was generated using a voice recognition system and there may be incorrect words, spelling or punctuation that were not noted when reviewing the office note prior to saving.
[2022-08-16 08:22] VITALS: BP 133/83; PULSE 97
[2022-08-16] MEDS: Pramipexole Di-HCl 0.5 MG Tablet PO (08:22)
[2022-08-16] MEDS: Metoprolol Tartrate 50 MG Tablet PO (08:22)
[2022-08-16] MEDS: Aspirin 81 MG TAB.CHEW PO (08:23)
[2022-08-16] MEDS: Multivitamins,Therapeutic Tablet 1 TABLET PO (08:23)
[2022-08-16] MEDS: guaiFENesin 1,200 MG Tablet 1200 MG PO (08:24)
[2022-08-16] MEDS: CARBIDOPA/LEVODOPA 1 EACH CAPSULE.ER 3 EACH PO (08:25)
[2022-08-16] MEDS: Dorzolamide HCL/Timolol 10 ml Bottle 1 DRP LEFT EYE (08:26)
[2022-08-16] MEDS: Lisinopril 10 MG Tablet PO (08:34)
[2022-08-16] MEDS: APIXABAN 5 MG TABLET PO (08:35)
[2022-08-16] MEDS: Senna/Docusate Sodium 1 Tablet PO (08:35)
[2022-08-16] MEDS: BENZOCAINE/MENTHOL 1 LOZENGE MUCOUS MEM (08:36)
--- NOTE | 2022-08-16 08:55 | PN.HOSP_ITS ---
Subjective Subjective Feels good. Objective Data Objective Data Vital Signs: Vital Signs Temp Pulse Resp BP Pulse Ox O2 Del Method 36.6 C 97 12 133/83 H 97 CPAP 08/16/22 03:00 08/16/22 08:22 08/16/22 03:00 08/16/22 08:22 08/16/22 03:00 08/16/22 03:21 Oxygen Delivery Method CPAP Weight: 109.2 kg Body Mass Index (BMI) 31.7 Intake & Output: Intake and Output for Last 24 Hours 08/14/22 08/15/22 08/16/22 23:59 23:59 23:59 Intake Total 3963.77 / 3980.47 2938.79 / 2938.79 400 / 400 Output Total 1575 / 1575 3125 / 3125 825 / 825 Balance 2388.77 / 2405.47 -186.21 / -186.21 -425 / -425 Lab / Micro Data Result Diagrams: 08/15/22 06:05 08/15/22 06:05 Micro: Microbiology 08/13/22 19:04 Urine, Clean Catch Urine Culture - Final Culture exhibits no growth. 08/13/22 18:31 Nasal Secretion SARS-CoV-2 Antigen (Rapid) - Final Physical Exam Const Constitutional Narrative: noted diffuse chorea Resp normal respiratory effort and no retractions Cardio regular rate, regular rhythm, S1 normal heart sound and S2 normal heart sound GI normal to inspection, nondistended, normoactive bowel sounds Psych affect normal Assessment & Plan Assessment/Plan (1) Atrial fibrillation with RVR: PLAN: Improved on PO Amiodarone, metoprolol anticoagulation with Apixaban Follow up with cardiology PLAN: Plan Chronic conditions: * Parkinson's Disease-continue home carbidopa/levodopa regimen. * Glaucoma-continue home medication. * Hypothyroidism-continue Synthroid.? TSH low.? Check T4 * Obstructive sleep apnea-continue home CPAP regimen. * Anxiety-continue home regimen. * Hypertension-continue BP regimen with hold parameters. DVT prophylaxis-anticoagulated Charges/Coding Visit Charges Inpatient E&M: 06401 Subs Hosp L2
[2022-08-16 09:00] VITALS: BP 133/83; PULSE 97; RESP 18; TEMP 36.4; O2SAT 97
--- NOTE | 2022-08-16 10:51 | PCM.DC ---
Discharge Instructions Diet Discharge Diet: Low fat / Low cholesterol Dressing / Incision Call your doctor if you observe: Increased palpitations (irregular heartbeat) Follow Up Care Test Results: Test results from this visit will be discussed in further detail at your follow-up appointment, if applicable. Discharge Plan Admission Admit Date/Time: 08/13/22 20:41 Primary Reason for Your Visit: atrial fibrillation with RVR Attending Provider: Griffin Rice Primary Care Provider: Zana Vásquez Consulting Providers: Jh Tabares ; Romulo Laboy Discharge Orders/Prescriptions Prescriptions: New amiodarone 200 mg Tablet 200 mg PO DAILY Qty: 60 0RF Rx Instructions: 3 times daily through 08/21/2022, then 2 times daily from 08/22-, then daily starting 08/29/2022 Eliquis 5 mg Tablet 5 mg PO BID Qty: 60 0RF metoprolol tartrate 50 mg Tablet 50 mg PO BID Qty: 60 0RF Continued dorzolamide-timolol 1 DROP bottle 1 drp ophthalmic (eye) BID Label Comments: glaucoma medication Rx Instructions: LEFT EYE ONLY levothyroxine 200 MCG tablet 200 mcg PO DAILY Label Comments: hypothyroidism bimatoprost 1 DROP bottle 1 drp topical QHS Label Comments: glaucoma medication Rx Instructions: LEFT EYE multivitamin 1 EACH tablet 3 tab PO DAILY carbidopa-levodopa 50-200 mg Tablet Extended Release 1 tab PO QHS lisinopril 10 mg Tablet 10 mg PO DAILY verapamil 300 mg Capsule, [address] 300 mg PO DAILY rasagiline 1 mg Tablet 1 mg PO DAILY Rx Instructions: GIVEN AT 0430 EVERY MORNING Rytary 48.75-195 mg Capsule, Extended Release See Rx Instructions .ROUTE .COMPLEX Rx Instructions: 3 cap orally ;GIVEN AT 0430, 0900, 1330 & 1830.Takes 3 capsules all times except for 0430 when he takes 4 capsules. pramipexole [Mirapex] 1 mg Tablet 1 mg PO DAILY Rx Instructions: GIVE AT 0430 DAILY pramipexole [Mirapex] 0.5 mg Tablet 0.5 mg PO BID Rx Instructions: GIVEN AT 0900 & 1330 netarsudil 0.02 % Drops 1 drp LEFT EYE QPM acetaminophen 500 mg tablet 1,000 mg PO Q8 pramipexole 0.5 mg tablet 0.5 mg PO 1330 polyethylene glycol 3350 17 gram Powder In Packet 17 g PO BID Qty: 60 0RF trazodone 100 mg Tablet 100 mg PO QHS Qty: 30 0RF aspirin 81 mg tablet,chewable 81 mg PO DAILY Qty: 1 0RF Senna Plus 8.6-50 mg capsule 2 tab-cap PO BID Qty: 120 0RF Discontinued oxycodone 5 mg Tablet 5 mg PO Q6H PRN PRN (Reason: Pain Score 4-10) 7 Days Qty: 28 0RF Referrals / Follow Up: [facility] [Provider Group] - Within 1 Month Zana Vásquez MD [Primary Care Provider] - Within 2 Weeks Disposition Disposition (needs filled in before D/C Order can be placed): Home, Self Care
--- NOTE | 2022-08-16 10:59 | DS.PCM_ITS ---
Providers Date of Admission: 08/13/22 Primary Care Physician: Dr. Zana Vásquez MD Consultations 08/13/22 21:41 Consult: Cardiology Routine Consulting Provider: Jh Tabares Reason for Consult: Afib with RVR EMERGENT Consult: Yes MD Notified: Yes Date Notified: 08/13/22 Time Notified: 20:51 Method of Notification: ED Physician Initiated Method of Consult:: In-Person Reason For Visit: AFIB RVR, UTI, TRANSIENT HYPOTENSION Diagnosis Discharge Diagnosis (1) Atrial fibrillation with RVR: Status: Acute Code(s): I48.91 - Unspecified atrial fibrillation Plan: Improved on PO Amiodarone, metoprolol anticoagulation with Apixaban Follow up with cardiology Plan Chronic conditions: * Parkinson's Disease-continue home carbidopa/levodopa regimen. * Glaucoma-continue home medication. * Hypothyroidism-continue Synthroid.? TSH low.? Check T4 * Obstructive sleep apnea-continue home CPAP regimen. * Anxiety-continue home regimen. * Hypertension-continue BP regimen with hold parameters. DVT prophylaxis-anticoagulated Medications at Discharge Home Medications bimatoprost 0.03 % drops with applicator, eyelash base 1 drp topical QHS eye drop 06/26/17 dorzolamide 22.3 mg-timolol 6.8 mg/mL eye drops 1 drp ophthalmic (eye) BID Eye drops 06/26/17 levothyroxine 200 mcg tablet 200 mcg PO DAILY hypothyroid 06/26/17 multivitamin 3 tab PO DAILY Supplement 11/19/19 carbidopa ER 48.75 mg-levodopa 195 mg capsule,extended release (Rytary) See Rx Instructions .Route .COMPLEX SHAKES 04/24/22 carbidopa ER 50 mg-levodopa 200 mg tablet,extended release 1 tab PO QHS Check with primary doctor 04/24/22 lisinopril 10 mg tablet 10 mg PO DAILY BP 04/24/22 rasagiline 1 mg tablet 1 mg PO DAILY SHAKES 04/24/22 verapamil 300 mg capsule 24hr pellet CT,ext.release 300 mg PO DAILY BP 04/24/22 netarsudil 0.02 % eye drops 1 drp LEFT EYE QPM eyes 05/01/22 pramipexole 0.5 mg tablet (Mirapex) 0.5 mg PO BID SHAKES 05/01/22 pramipexole 1 mg tablet (Mirapex) 1 mg PO DAILY PARKINSONS 05/01/22 acetaminophen 500 mg tablet 1,000 mg PO Q8 Check with primary doctor 06/17/22 pramipexole 0.5 mg tablet 0.5 mg PO 1330 Check with primary doctor 06/17/22 aspirin 81 mg chewable tablet 81 mg PO DAILY Check with primary doctor #1 TAB 07/12/22 polyethylene glycol 3350 17 gram oral powder packet 17 g PO BID #60 ea 07/12/22 sennosides 8.6 mg-docusate sodium 50 mg capsule (Senna Plus) 2 tab-cap PO BID #120 caps 07/12/22 trazodone 100 mg tablet 100 mg PO QHS #30 tabs 07/12/22 amiodarone 200 mg tablet 200 mg PO DAILY #60 tabs 08/16/22 apixaban 5 mg tablet (Eliquis) 5 mg PO BID #60 tabs 08/16/22 metoprolol tartrate 50 mg tablet 50 mg PO BID #60 tabs 08/16/22 Hospital Course Operations None Procedures 2-D Echocardiogram Summary of Care Provided Minutes Spent on Discharge: 32 Weight / BMI Weight Weight: 109.2 kg Body Mass Index (BMI) 31.7 ABG / Lab / Microbiology Data Result Diagrams: 08/15/22 06:05 08/15/22 06:05 Microbiology: Microbiology 08/13/22 19:04 Urine, Clean Catch Urine Culture - Final Culture exhibits no growth. 08/13/22 18:31 Nasal Secretion SARS-CoV-2 Antigen (Rapid) - Final D/C Instructions Discharge Diet: Low fat / Low cholesterol Call your doctor if you observe: Increased palpitations (irregular heartbeat) Meaningful Use Info Meaningful Use Diagnoses (Choose all that apply): None applicable Discharge Plan Admission Admit Date/Time: 08/13/22 20:41 Primary Reason for Your Visit: atrial fibrillation with RVR Attending Provider: Griffin Rice Primary Care Provider: Zana Vásquez Consulting Providers: Jh Tabares ; Rmoulo Laboy Discharge Orders/Prescriptions Prescriptions: New amiodarone 200 mg Tablet 200 mg PO DAILY Qty: 60 0RF Rx Instructions: 3 times daily through 08/21/2022, then 2 times daily from 08/22-, then daily starting 08/29/2022 Eliquis 5 mg Tablet 5 mg PO BID Qty: 60 0RF metoprolol tartrate 50 mg Tablet 50 mg PO BID Qty: 60 0RF Continued dorzolamide-timolol 1 DROP bottle 1 drp ophthalmic (eye) BID Label Comments: glaucoma medication Rx Instructions: LEFT EYE ONLY levothyroxine 200 MCG tablet 200 mcg PO DAILY Label Comments: hypothyroidism bimatoprost 1 DROP bottle 1 drp topical QHS Label Comments: glaucoma medication Rx Instructions: LEFT EYE multivitamin 1 EACH tablet 3 tab PO DAILY carbidopa-levodopa 50-200 mg Tablet Extended Release 1 tab PO QHS lisinopril 10 mg Tablet 10 mg PO DAILY verapamil 300 mg Capsule, [address] 300 mg PO DAILY rasagiline 1 mg Tablet 1 mg PO DAILY Rx Instructions: GIVEN AT 0430 EVERY MORNING Rytary 48.75-195 mg Capsule, Extended Release See Rx Instructions .ROUTE .COMPLEX Rx Instructions: 3 cap orally ;GIVEN AT 0430, 0900, 1330 & 1830.Takes 3 capsules all times except for 0430 when he takes 4 capsules. pramipexole [Mirapex] 1 mg Tablet 1 mg PO DAILY Rx Instructions: GIVE AT 0430 DAILY pramipexole [Mirapex] 0.5 mg Tablet 0.5 mg PO BID Rx Instructions: GIVEN AT 0900 & 1330 netarsudil 0.02 % Drops 1 drp LEFT EYE QPM acetaminophen 500 mg tablet 1,000 mg PO Q8 pramipexole 0.5 mg tablet 0.5 mg PO 1330 polyethylene glycol 3350 17 gram Powder In Packet 17 g PO BID Qty: 60 0RF trazodone 100 mg Tablet 100 mg PO QHS Qty: 30 0RF aspirin 81 mg tablet,chewable 81 mg PO DAILY Qty: 1 0RF Senna Plus 8.6-50 mg capsule 2 tab-cap PO BID Qty: 120 0RF Discontinued oxycodone 5 mg Tablet 5 mg PO Q6H PRN PRN (Reason: Pain Score 4-10) 7 Days Qty: 28 0RF Referrals / Follow Up: [facility] [Provider Group] - Within 1 Month Zana Vásquez MD [Primary Care Provider] - Within 2 Weeks Disposition Disposition (needs filled in before D/C Order can be placed): Home, Self Care Charges/Coding Visit Charges Inpatient E&M: 36461 Disch Hosp
[2022-08-16 11:51] VITALS: PULSE 83
--- NOTE | 2022-08-16 12:00 | CASEMGMT ---
Pt to be sent home on Eliquis at discharge at discharge and med e-scribed to pharmacy. Call to pharmacy and per tech, pt has no co-pay for med. Pt updated, voices understanding. Pt was already getting OP therapy and states has one more therapy session to go. Pt states will discuss need for any further therapy at his last session and voices no further questions/concerns/needs. Regi ESCOBEDO CM
--- NOTE | 2022-08-16 13:30 | CHAPLAIN ---
Type of Pastoral Visit _x__ Initial Visit ___ Follow-up Visit ___ On-call Visit ___ General Patient Visit ___ Spiritual Assessment ___ Family Conference ___ Bereavement ___ Rapid Response ___ Code Blue ___ Other (describe below) Pastoral Care Referral From _x__ Patient ___ Family ___ Nurse ___ Physician ___ Injection Molding Supervisor ___ Co Founder And Cto ___ Other (describe below) Sacrament/Intervention _x__ Active listening ___ Anointing ___ Lutheran ___ Bereavement ___ Communion ___ Yoanna exploration ___ ___ Life review _x__ Prayer ___ Reconciliation ___ Sacrament of Sick _x__ Supportive presence ___ Wedding ___ Other (describe below) Pastoral Comments this patient was seen in a previous admission and remembers this hammer driver; pt gives update on his health situation and reason for being admitted; 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
[2022-08-16 14:13] VITALS: BP 120/91; PULSE 83; RESP 16; TEMP 36.7; O2SAT 98
== END 2022-08-16 14:10 | disposition home or self-care (01) | DRG 309 ==
LOC: ED 20:50 → PCU 20:58
PROVIDERS: Internal Medicine Cardiovascular Disease; Nurse Practitioner Family; Admitting Provider Hospitalist; Emergency Provider Emergency Medicine; PCP Family Medicine
DX: I48.91 Unspecified atrial fibrillation (principal); N17.9 Acute kidney failure, unspecified; I95.89 Other hypotension; J44.9 Chronic obstructive pulmonary disease, unspecified; G20 Parkinson's disease; E89.0 Postprocedural hypothyroidism; I10 Essential (primary) hypertension; G47.33 Obstructive sleep apnea (adult) (pediatric); F41.9 Anxiety disorder, unspecified; H40.9 Unspecified glaucoma; E66.9 Obesity, unspecified; Z68.32 Body mass index [BMI] 32.0-32.9, adult; Z79.01 Long term (current) use of anticoagulants; Z79.82 Long term (current) use of aspirin; Z79.899 Other long term (current) drug therapy
CPT/HCPCS: 36415; 71045; 71275; 80048; 80053; 81001; 83735; 84439; 84443; 85025; 85379; 87086; 87811; 93005; 93306; 97162; 97166; 97535; 99285; J7030; Q9967; A4216

== ENCOUNTER → 2022-08-24 | Outpatient (CLI) | payer OTHER, SELFPAY ==
[2022-08-24 08:08] LABS: Anion Gap 5 (5-15); BUN 20 mg/dL (7-18); BUN/Creat Ratio 24.5 RATIO (10-20); Calcium,Total 8.7 mg/dL (8.5-10.1); Chloride 106 mmol/L (98-107); Cholesterol 116 mg/dL (200); Creatinine, Serum 0.82 mg/dL (0.70-1.30); EST Glomerular Filtration Rate 99 mL/min (>60); Est Glom Filt Rate - Afr Amer 120 mL/min (>60); Free T3 2.2 pg/mL (2.18-3.98); Glucose 108 mg/dL (74-106); High Density Lipoprotein 39 mg/dL; Sodium Level 141 mmol/L (136-145); T4 Free Direct 1.98 ng/dL (0.76-1.46); Thyroid Stim Hormone (TSH) 0.18 uIU/mL (0.358-3.74); Triglycerides 78 mg/dL; Very Low Density Lipoprotein 16 mg/dL (5-40)
== END | disposition home or self-care (01) ==
LOC: MTLAB 07:00 → LAB 07:01
PROVIDERS: PCP Family Medicine; Referring Provider Family Medicine; Visit Provider Family Medicine
DX: E03.9 Hypothyroidism, unspecified (principal); I10 Essential (primary) hypertension
CPT/HCPCS: 36415; 80048; 80061; 84439; 84443; 84481

== ENCOUNTER → 2022-09-12 | Outpatient (CLI) | payer OTHER, SELFPAY ==
[2022-09-12 17:47] LABS: Absolute Lymphocyte Count 2.66 X10^3/uL (0.83-4.51); Absolute Neutrophil Count 6.9 X10^3/uL (2.0-7.7); Basophil# 0.08 X10^3/uL; Basophil% 0.8 % (0-1); Eosinophil# 0.15 X10^3/uL; Eosinophils% 1.4 % (0-5); Hematocrit 42.8 % (40-54); Hemoglobin 13.1 g/dL (13.0-16.5); Lymphocyte # 2.66 X10^3/ul (0.83-4.51); Mean Corp Hgb Conc 30.6 g/dL (32-36); Mean Corpuscular Hgb 29.8 pg (27.0-32.0); Mean Corpuscular Volume 97.3 fL (80-94); Mean Platelet Vol. 9.2 fl (6.2-12.0); Monocyte# 0.87 X10^3/uL; Monocyte% 8.2 % (0-10); NRBC Flagged by Analyzer 0 % (0-5); Neutrophil # 6.85 X10^3/uL (2.7-7.7); Neutrophil % 64.2 % (47-70); Platelet Count 303 K/mm3 (150-450); RBC Distribution Width CV 13.9 % (11.6-14.6); RBC Distribution Width SD 50.2 fl (35.1-43.9); White Blood Count 10.7 K/mm3 (4.4-11.0)
[2022-09-12 18:28] LABS: Vitamin B12 402 pg/mL (211-911)
[2022-09-12 19:07] LABS: ALB/GLOB Ratio 1.1 RATIO (0.9-2.4); AST(SGOT) 11 U/L (15-37); Alanine Aminotransfer ALT/SGPT 7 U/L (16-61); Albumin, Serum 3.6 g/dL (3.2-5.0); Alkaline Phosphatase 151 U/L (45-117); Anion Gap 5 (5-15); BUN 30 mg/dL (7-18); BUN/Creat Ratio 25.6 RATIO (10-20); Calcium,Total 8.9 mg/dL (8.5-10.1); Chloride 106 mmol/L (98-107); Creatinine, Serum 1.17 mg/dL (0.70-1.30); EST Glomerular Filtration Rate 66 mL/min (>60); Est Glom Filt Rate - Afr Amer 79 mL/min (>60); Ferritin 149 ng/mL (26-388); Globulin 3.4 g/dL (2.2-4.2); Glucose 81 mg/dL (74-106); Iron 41 ug/dL (65-175); Iron Binding Capacity,Total 297 ug/dL (250-450); Magnesium 2.1 mg/dL (1.6-2.6); Potassium 4.2 mmol/L (3.5-5.1); Sodium Level 140 mmol/L (136-145); T4 Free Direct 1.79 ng/dL (0.76-1.46); Thyroid Stim Hormone (TSH) 0.29 uIU/mL (0.358-3.74)
== END | disposition home or self-care (01) ==
LOC: MFPLAB 16:44
PROVIDERS: PCP Family Medicine; Referring Provider Family Medicine; Visit Provider Family Medicine
DX: I48.91 Unspecified atrial fibrillation (principal); D64.9 Anemia, unspecified; E03.9 Hypothyroidism, unspecified
CPT/HCPCS: 36415; 80053; 82607; 82728; 82746; 83540; 83550; 83735; 84439; 84443; 85025

== ENCOUNTER 2022-09-18 17:30 | Outpatient (RCR) | payer OTHER, SELFPAY ==
--- NOTE | 2022-07-17 14:52 | HP.PTEVAL_ITS ---
Patient's Visit Information JERED ESCOBAR is a 72 year old M referred to Physical Therapy by Dr. Sheryl López DO with a diagnosis of R hip fx with nailing. Date of Evaluation: 07/17/22 Physical Therapist: Erick De La Cruz DPT - Visit Plan Frequency: 3x /Week Duration: 6 Weeks Plan: Start with L hip ROM, especially to ext to regain neutral positioning, add in hip/core strengthening. Progress walking pattern and endurance. Add in general strengthening. WBAT. - Subjective Pt. is here today for his initial evaluation with diagnosis of R hip fracture after mechanical fall. He reports falling over cinder block at home. DOS: 06/16/22. Pt. had a R hip nailing. 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 He reports sleeping pretty well, he has some increase in pain, but is doing better now. He was on inpatient rehab for ~1 month. He got back home on Friday07/12/22. He lives with spouse and grand daughter. He is walking with FWW at home, but reports increased pain while doing so. Pt. denies N/T. PMH: Parkinson's, thyroid disease, back surgery ~5 years ago. He is hopeful to reduce symptoms in order to get back to all recreational walking and work without limitations. - Pain R groin Pain Intensity (Out of 10): 4 Pain Intensity Range: 0, 7 - Objective POSTURE: Pt. has increased wt. shift to L side in stance. Pt. off loads RLE with use of UEs on walker. Tends to lean fwrd onto walker. Normal sitting balance noted. PALPATION: pt. had no pain with palpation of quad or IT band. He does have tenderness at anterior hip and hip flexor region. No calf pain, no distal LE symptoms. NEURO: Pt. has normal DTR of BLEs, normal sensation in BLEs. ROM: L LE: normal ROM of ankle, knee and hip. Tightness noted in hip flexor and HS. RLE: ankle- full motion, knee- full motion; hip: PROM: flexion 90deg, abd 30deg, ext lacking 10deg. MMT: LLE 5/5 throughout without increase in symptoms. RLE: ankle 5/5 throughout no issues; knee: flexion 5/5 NE, ext 4/5 increase NW at anterior hip; hip: flexion 3/5, abd 3/5, ext 4/5. GAIT: pt. ambulates with FWW with heavy use of AD. Pt. has antalgic pattern during R stance phase. He. lacks extension during R stance phase as well, resulting in a more step to pattern on L side. He has increased pain occasionally during stance phase as well. TU.9sec with FWW. 30sec sit to stand rep test: 11 with use of UEs - Balance/Special Test Scores Lower Extremity Functional Score: 4 TUG Test Time Seconds: 27.9 30 Second Chair Rise Test Seconds: 11 - Goals Goal 1:: LTG: Pt. to be I with HEP. Goal Time Frame: 4-6 Weeks Goal 2:: STG: Pt. to be able to sleep throughout the night without increase in symptoms. Goal Time Frame: 2 Weeks Goal 3:: STG: Pt. to have increased R hip extension to 5 deg allowing for increased tolerance to lying flat and to allow for better gait mechanics. Goal Time Frame: 2-4 Weeks Goal 4:: LTG: Pt. to have increase R hip strength to at least 5-/5 throughout allowing for increased ability to negotiate steps and complete all work duties without increase in symptoms. Goal Time Frame: 4-6 Weeks Goal 5:: LTG: Pt. to complete TUG with time less than 12 sec. indicating increased functional mobility. Goal Time Frame: 4-6 Weeks Goal 6:: LTG: Pt. to ambulate with SPC vs no AD with normal gait pattern without increase in pain for at least 750' allowing for safety mobility at work and community. Goal Time Frame: 4-6 Weeks - Rehabilitation Potential Physical Therapy Diagnosis: Pt. has signs and symptoms consistent with R hip fx and subsequent nailing. DOS: 06/16/22. Pt. now has marked hypomobility, weakness, increased pain, and increased difficulty walking. Pt. would benefit from PT to address his hypomobility, weakness then progressing back to all functional mobility. Rehabilitation Potential: Excellent - Anticipated Interventions Patient/Client Instruction: Educate patient on: Condition, Plan of Care, Risk Factors, Benefits of Fitness Program For the Purpose of:: To foster healthy habits, To improve decision making, To facilitate caregiver knowledge, To improve self management, To prevent re- injury, To improve ability to perform tasks related to life management, To improve tolerance to ADL's Therapeutic Exercise to Include: Strength training, Power training, Endurance training, Balance training, Coordination, Agility training, Postural training, Flexibilty training, Gait and locomotor training, Passive ROM, Active ROM, Dynamic Lumbar Stabilization For the Purpose of:: To decrease pain, To decrease swelling/inflammation, To increase ROM, To improve nutrient delivery to tissue, To increase oxygenation perfusion, To improve muscle performance and motor function, To improve ability to perform ADL's, To increase tolerance to activity/condition/position, To improve performance and independence with ADL's, To decrease level of supervision to perform tasks, To improve ability of physical actions for rommel e/community/work/leisure, To improve gait and locomotor functions, To improve health of tissue, To decrease soft tissue restriction, To increase flexibility/ROM Thank you for the opportunity to evaluate your patient. For Medicare and Medicare HMO plans, please review the plan of care and approve it. It will need to be FAXED BACK to us at [phone] for Medicare purposes. For Medicare only, by signing this I certify the plan of care. Please let me know if there are questions or concerns regarding this plan of care. Physician Signature: Date:
--- NOTE | 2022-09-30 11:01 | HP.PTREVAL ---
Dr. Zana Vásquez MD, It has been my pleasure to treat KAN ESCOBAR over the last 9 visits for R hip fx with nailing 06/16/22. Please see the progress note below for an update on the physical therapy plan of care! Subjective: Pt. reports he is still having some issues with his R hip, but overall is doing better. He reports 2 weeks ago going into Afib and had to be admitted to hospital. The following week he had a retinal detachment and had to have a procedure to correct. Due to his recent eye surgery he reports having a black area where he has limited vision. he arrives using FWW today, but reports not using in home, except for at night and AMs when he is not felling the best. Objective/Function: TU.3 sec without AD. This timing does suggest use of AD for some stability. FGA: with out use of AD. GAIT: Pt. ambulated with FWW with good stability, but is a bit impulsive with his movements. He occasional picks up his walker and just walks with it, takes 1 arm off frequently to talk and gets AD out in from of his at times. He will have intermittent shuffling pattern, but is able to correct with VC/TCing. GAIT: without AD he has a more crouched pattern with B knees bent, but still stable. He has less fwrd lean, but more lateral balance instability noted. I did walk with SPC as well. He had decent pattern with this for most of his gait, but would occassionally get the cane too close and having to step around. I talked to him about continuing to use FWW currently, but we will progress to cane if able. pt. is recovering from a retinal surgery and is haivng some trouble with vision as well. Plan Plan: I would like to continue to see Kan. He is progressing, but still has some pain in his hip, but also has some gait issues that I would like to be more improved with his balance and gait. Cont. to work on reduced use of AD, consider cane if doing well. Progress as able. Balance/Gait/Functional tests - Balance/Special Test Scores Functional Gait Assessment Score: 20 % Disability: 33.3400 Lower Extremity Functional Score: 4 TUG Test Time Seconds: 15.3 Tug Test: <20 sec.=mostly independent 30 Second Chair Rise Test Seconds: 15 Goals Goal 1:: LTG: Pt. to be I with HEP. Goal Time Frame: 4-6 Weeks Goal 2:: STG: Pt. to be able to sleep throughout the night without increase in symptoms. Goal Time Frame: 2 Weeks Goal 3:: STG: Pt. to have increased R hip extension to 5 deg allowing for increased tolerance to lying flat and to allow for better gait mechanics. Goal Time Frame: 2-4 Weeks Goal 4:: LTG: Pt. to have increase R hip strength to at least 5-/5 throughout allowing for increased ability to negotiate steps and complete all work duties without increase in symptoms. Goal Time Frame: 4-6 Weeks Goal 5:: LTG: Pt. to complete TUG with time less than 12 sec. indicating increased functional mobility. Goal Time Frame: 4-6 Weeks Goal 6:: LTG: Pt. to ambulate with SPC vs no AD with normal gait pattern without increase in pain for at least 750' allowing for safety mobility at work and community. Goal Time Frame: 4-6 Weeks Anticipated Interventions Patient/Client Instruction: Educate patient on: Condition, Plan of Care, Risk Factors, Benefits of Fitness Program For the Purpose of:: To foster healthy habits, To improve decision making, To facilitate caregiver knowledge, To improve self management, To prevent re-injury, To improve ability to perform tasks related to life management, To improve tolerance to ADL's Therapeutic Exercise to Include: Strength training, Power training, Endurance training, Balance training, Coordination, Agility training, Postural training, Flexibilty training, Gait and locomotor training, Passive ROM, Active ROM, Dynamic Lumbar Stabilization For the Purpose of:: To decrease pain, To decrease swelling/inflammation, To increase ROM, To improve nutrient delivery to tissue, To increase oxygenation perfusion, To improve muscle performance and motor function, To improve ability to perform ADL's, To increase tolerance to activity/condition/position, To improve performance and independence with ADL's, To decrease level of supervision to perform tasks, To improve ability of physical actions for home/community/work/leisure, To improve gait and locomotor functions, To improve health of tissue, To decrease soft tissue restriction, To increase flexibility/ROM Please do not hesitate to contact me at [phone] by phone or if you have questions or concerns regarding this new plan of care! Sincerely, Erick De La Cruz, DPT
== END 2022-09-18 19:00 | disposition home or self-care (01) ==
LOC: PT 17:30
PROVIDERS: PCP Family Medicine; Referring Provider Internal Medicine; Visit Provider Family Medicine
DX: S72.001D Fracture of unspecified part of neck of right femur, subsequent encounter for closed fracture with routine healing (principal)
CPT/HCPCS: 97110; 97161; 97164

== ENCOUNTER → 2022-10-14 | Outpatient (CLI) | payer OTHER, SELFPAY ==
[2022-10-14 16:01] LABS: PSA,Total- Diagnostic 0.91 ng/mL (0.0-4.0)
== END | disposition home or self-care (01) ==
PROVIDERS: PCP Family Medicine; Referring Provider Registered Nurse; Visit Provider Registered Nurse
DX: Z12.5 Encounter for screening for malignant neoplasm of prostate (principal)
CPT/HCPCS: 36415; 84153

== ENCOUNTER → 2022-10-23 | Outpatient (CLI) | payer OTHER, SELFPAY ==
[2022-10-23 13:26] LABS: Free T3 2.2 pg/mL (2.18-3.98); T4 Free Direct 1.73 ng/dL (0.76-1.46); Thyroid Stim Hormone (TSH) 0.52 uIU/mL (0.358-3.74)
== END | disposition home or self-care (01) ==
LOC: MFPLAB 09:40
PROVIDERS: PCP Family Medicine; Visit Provider Family Medicine
DX: E03.9 Hypothyroidism, unspecified (principal)
CPT/HCPCS: 36415; 84439; 84443; 84481

== ENCOUNTER → 2022-11-21 | Outpatient (CLI) | payer OTHER, SELFPAY ==
--- NOTE | 2022-11-21 11:19 | RAD_ITS ---
STUDY: X-RAY CHEST REASON FOR EXAM: Male, 72 years old. BRONCHITIS TECHNIQUE: XR Chest 2 Views COMPARISON: 08.13.22 FINDINGS: There is atherosclerotic calcification of the aortic arch with tortuosity. There are diffuse degenerative changes of the visualized thoracic spine. There is degenerative osteoarthritis of the bilateral shoulders. There is no demonstrated pleural abnormality. Normal size heart. Normal mediastinum and lazara. Normal visualized pulmonary arteries. There is no demonstrated abnormality of the visualized soft tissue structures of the upper abdomen. RAD/Chest PA and Lateral IMPRESSION: There are no acute findings. Electronically Signed: Rosendo Balderrama MD at 20:16 EST ,
== END | disposition home or self-care (01) ==
LOC: MTRAD 11:17
PROVIDERS: PCP Family Medicine; Referring Provider Family Medicine; Visit Provider Family Medicine
DX: M19.011 Primary osteoarthritis, right shoulder (principal); M19.012 Primary osteoarthritis, left shoulder; J20.9 Acute bronchitis, unspecified
CPT/HCPCS: 71046

== ENCOUNTER → 2023-01-03 | Outpatient (CLI) | payer OTHER, SELFPAY ==
[2023-01-03] MEDS: CARBIDOPA/LEVODOPA CR 50/200 Tablet PO (22:09)
--- NOTE | 2023-01-04 05:10 | NURSING ---
Addendum entered by Jesica Victoria 01/04/23 05:16: verified with Moraima wright, not [employer] Original Note: azilect 1mg tablet given, 3 capsules levodopa given, verifeid with alexus wright
[2023-01-04] MEDS: CARBIDOPA/LEVODOPA 1 EACH CAPSULE.ER 3 EACH PO (05:15)
== END | disposition home or self-care (01) ==
LOC: SL 21:00
PROVIDERS: PCP Family Medicine; Referring Provider Internal Medicine Critical Care Medicine; Visit Provider Internal Medicine Critical Care Medicine
DX: G47.33 Obstructive sleep apnea (adult) (pediatric) (principal); J44.9 Chronic obstructive pulmonary disease, unspecified
CPT/HCPCS: 95811

== ENCOUNTER → 2023-02-18 | Outpatient (CLI) | payer OTHER, SELFPAY ==
[2023-02-18 18:05] LABS: Absolute Neutrophil Count 3.9 X10^3/uL (2.0-7.7); Basophil# 0.05 X10^3/uL; Basophil% 0.7 % (0-1); Eosinophil# 0.14 X10^3/uL; Eosinophils% 1.9 % (0-5); Hematocrit 42.7 % (40-54); Hemoglobin 13.1 g/dL (13.0-16.5); Lymphocyte % 33.9 % (19-41); Mean Corp Hgb Conc 30.7 g/dL (32-36); Mean Corpuscular Hgb 31.3 pg (27.0-32.0); Mean Corpuscular Volume 101.9 fL (80-94); Mean Platelet Vol. 9.2 fl (6.2-12.0); Monocyte# 0.73 X10^3/uL; Monocyte% 9.9 % (0-10); NRBC Flagged by Analyzer 0 % (0-5); Neutrophil # 3.94 X10^3/uL (2.7-7.7); Neutrophil % 53.5 % (47-70); Platelet Count 329 K/mm3 (150-450); RBC Distribution Width CV 13.1 % (11.6-14.6); RBC Distribution Width SD 48.8 fl (35.1-43.9); Red Blood Count 4.19 M/mm3 (4.6-6.2); White Blood Count 7.4 K/mm3 (4.4-11.0)
[2023-02-18 19:08] LABS: Bacteria 0 SEEN /hpf (None Seen); Mucous, Urine 0 SEEN /hpf (<or=2+); Red Blood Cells-Urine 0 SEEN /hpf (0-5); Squamous Epithelial Cells - UA 0 SEEN /hpf (0-5)
[2023-02-18 19:17] LABS: Color, Urine Yellow (Yellow); Glucose, Dipstick Normal (Normal); Ketone-Dipstick 15 mg/dl (Negative); Leukocyte Esterase-Dipstick Negative /ul (Negative); Nitrite-Dipstick Negative (Negative); Occult Blood-Urine Negative /ul (Negative); Protein-Dipstick 15 mg/dl (Negative); Specific Gravity, Urine 1.025 (1.002-1.030); Urine Bilirubin Dipstick Negative (Negative); Urine Clarity Clear (Clear); Urine Urobilinogen 1 mg/dl (Normal)
[2023-02-18 19:32] LABS: White Blood Cells 0-5 SEEN /hpf (0-5)
[2023-02-18 20:40] LABS: ALB/GLOB Ratio 1.2 RATIO (0.9-2.4); AST(SGOT) 19 U/L (15-37); Alanine Aminotransfer ALT/SGPT 15 U/L (16-61); Albumin, Serum 3.8 g/dL (3.2-5.0); Alkaline Phosphatase 84 U/L (45-117); Anion Gap 8 (5-15); BUN 16 mg/dL (7-18); BUN/Creat Ratio 20.5 RATIO (10-20); Calcium,Total 8.7 mg/dL (8.5-10.1); Chloride 105 mmol/L (98-107); Cholesterol 173 mg/dL (200); Creatinine, Serum 0.78 mg/dL (0.70-1.30); EST Glomerular Filtration Rate 105 mL/min (>60); Est Glom Filt Rate - Afr Amer 127 mL/min (>60); Globulin 3.2 g/dL (2.2-4.2); Glucose 86 mg/dL (74-106); High Density Lipoprotein 39 mg/dL; Potassium 3.9 mmol/L (3.5-5.1); Sodium Level 141 mmol/L (136-145); Triglycerides 211 mg/dL; Very Low Density Lipoprotein 42 mg/dL (5-40)
== END | disposition home or self-care (01) ==
LOC: MTLAB 15:15
PROVIDERS: Family Medicine; PCP Family Medicine; Referring Provider Family Medicine; Visit Provider Family Medicine
DX: I10 Essential (primary) hypertension (principal); E03.9 Hypothyroidism, unspecified
CPT/HCPCS: 36415; 80053; 80061; 81001; 83735; 84436; 84439; 84443; 84481; 85025

== ENCOUNTER → 2023-06-06 | Outpatient (CLI) | payer OTHER, SELFPAY ==
[2023-06-06 12:35] LABS: Absolute Neutrophil Count 4.4 X10^3/uL (2.0-7.7); Basophil# 0.05 X10^3/uL; Basophil% 0.7 % (0-1); Eosinophil# 0.05 X10^3/uL; Eosinophils% 0.7 % (0-5); Hemoglobin 13.9 g/dL (13.0-16.5); Mean Corp Hgb Conc 32.3 g/dL (32-36); Mean Corpuscular Volume 99.1 fL (80-94); Mean Platelet Vol. 8.9 fl (6.2-12.0); Monocyte# 0.57 X10^3/uL; Monocyte% 8.4 % (0-10); NRBC Flagged by Analyzer 0 % (0-5); Neutrophil # 4.42 X10^3/uL (2.7-7.7); Neutrophil % 64.9 % (47-70); Platelet Count 301 K/mm3 (150-450); RBC Distribution Width CV 13.7 % (11.6-14.6); RBC Distribution Width SD 50.4 fl (35.1-43.9); Red Blood Count 4.34 M/mm3 (4.6-6.2); White Blood Count 6.8 K/mm3 (4.4-11.0)
[2023-06-06 22:35] LABS: ALB/GLOB Ratio 1.1 RATIO (0.9-2.4); AST(SGOT) 18 U/L (15-37); Alanine Aminotransfer ALT/SGPT 10 U/L (16-61); Albumin, Serum 3.9 g/dL (3.2-5.0); Alkaline Phosphatase 74 U/L (45-117); Anion Gap 3 (5-15); BUN 21 mg/dL (7-18); BUN/Creat Ratio 23.1 RATIO (10-20); Calcium,Total 8.8 mg/dL (8.5-10.1); Chloride 105 mmol/L (98-107); Cholesterol 170 mg/dL (200); Creatinine, Serum 0.91 mg/dL (0.70-1.30); EST Glomerular Filtration Rate 87 mL/min (>60); Est Glom Filt Rate - Afr Amer 106 mL/min (>60); Globulin 3.4 g/dL (2.2-4.2); Glucose 98 mg/dL (74-106); High Density Lipoprotein 41 mg/dL; Magnesium 2.2 mg/dL (1.6-2.6); Potassium 4.6 mmol/L (3.5-5.1); Protein, Total 7.3 g/dL (6.4-8.2); Sodium Level 140 mmol/L (136-145); T4 Free Direct 1.32 ng/dL (0.76-1.46); Thyroid Stim Hormone (TSH) 0.71 uIU/mL (0.358-3.74); Triglycerides 188 mg/dL; Very Low Density Lipoprotein 38 mg/dL (5-40)
== END | disposition home or self-care (01) ==
LOC: MTLAB 10:59
PROVIDERS: PCP Family Medicine; Referring Provider Family Medicine; Visit Provider Family Medicine
DX: E03.9 Hypothyroidism, unspecified (principal); I48.91 Unspecified atrial fibrillation; I10 Essential (primary) hypertension
CPT/HCPCS: 36415; 80053; 80061; 83735; 84439; 84443; 85025

== ENCOUNTER → 2023-06-20 | Outpatient (CLI) | payer OTHER, SELFPAY ==
--- NOTE | 2023-06-20 12:21 | STRESSREP ---
Stress Test Report Date: 06/20/2023 Procedure: Pharmacologic stress nuclear imaging study Indications: Chest pain Consent: Per the patient Procedure: The patient underwent pharmacologic (Regadenoson 0.4mg ) evaluation with a peak heart rate of 102 beats per minute (68%predicted maximal heart rate) and a peak blood pressure of 140/61 mmHg. The baseline ECG demonstrated normal sinus rhythm. The peak pharmacologic ECG demonstrated no ischemic changes. There were no cardiac dysrhythmias pretest, during pharmacologic infusion, or recovery. There was no complaint of chest discomfort during pharmacologic infusion or recovery. The patient was injected with 15.0 millicuries of technetium 99m Cardiolite and subsequently rest SPECT Cardiolite nuclear imaging was obtained in the horizontal long, vertical long, and short axis views. The patient underwent pharmacologic (Regadenoson) evaluation. The patient was injected with 44.7 millicuries of technetium 99m Cardiolite and subsequently stress SPECT Cardiolite nuclear imaging was obtained in the horizontal long, vertical long, and short axis views. A gated Cardiolite study at peak stress was obtained. The examination was stopped secondary to completion of protocol. Rest and stress SPECT Cardiolite nuclear imaging status post realignment, normalization, and attenuation correction demonstrate no fixed or reversible perfusion defects. There is end systolic thickening and brightening. The gated Cardiolite study demonstrates myocardial thickening and inward wall motion. The reported LVEF is 73%. Impression: 1. Pharmacologic (Regadenoson) evaluation 2. Peak pharmacologic ECG with no ischemic changes. 3. There were no cardiac dysrhythmias pretest, during pharmacologic infusion, or recovery. 5. Rest and stress SPECT Cardiolite nuclear imaging demonstrate relative uniform tracer uptake and myocardial perfusion appearing within normal limits. 6. The gated Cardiolite study reports an LVEF of 73%. This note was generated with [employer] software. It may contain incorrect words, spelling, and punctuation that were not noted in checking the note before signing.
== END | disposition home or self-care (01) ==
LOC: CVS 06:29
PROVIDERS: PCP Family Medicine; Referring Provider Nurse Practitioner Family; Visit Provider Nurse Practitioner Family
DX: R07.9 Chest pain, unspecified (principal); I48.91 Unspecified atrial fibrillation; I10 Essential (primary) hypertension; Z79.899 Other long term (current) drug therapy
CPT/HCPCS: 78452; 93017; A9500; A4216; J2785

== ENCOUNTER → 2023-07-14 | Outpatient (CLI) | payer OTHER, SELFPAY ==
[2023-07-14 16:31] LABS: PSA,Total - Annual Screen 1.24 ng/mL (0.00-4.00)
== END | disposition home or self-care (01) ==
LOC: MFPLAB 12:23
PROVIDERS: PCP Family Medicine; Visit Provider Family Medicine
DX: R35.0 Frequency of micturition (principal)
CPT/HCPCS: 36415; 84153; 87086; G0103

== ENCOUNTER → 2023-07-18 | Outpatient (CLI) | payer OTHER, SELFPAY ==
--- NOTE | 2023-07-18 10:30 | RAD_ITS ---
STUDY: X-RAY - ABDOMEN/PELVIS REASON FOR EXAM: Male, 73 years old. Hematuria TECHNIQUE: Two AP supine views of the abdomen and pelvis. COMPARISON: None. FINDINGS: Normal visualized lung bases. There is an abundance of fecal material throughout the colon. There is no demonstrated free abdominal air. The visualized liver, spleen and kidneys are grossly normal in size and morphology. Normal soft tissue structures. Normal visualized osseous structures. Surgical hardware at L4 4 and L5 free of complication. Surgical hardware in the right femur free of complication RAD/Abdomen Single View IMPRESSION: No abnormal findings, retained stool Electronically Signed: Eric Garcia MD at 14:22 EDT ,
== END | disposition home or self-care (01) ==
PROVIDERS: PCP Family Medicine; Referring Provider Family Medicine; Visit Provider Family Medicine
DX: R35.0 Frequency of micturition (principal); R31.9 Hematuria, unspecified
CPT/HCPCS: 74018; 87086

== ENCOUNTER → 2023-08-19 | Outpatient (CLI) | payer OTHER, SELFPAY | END | disposition home or self-care (01) | LOC: PSN 09:18 | PROVIDERS: PCP Family Medicine; Referring Provider Nurse Practitioner Family; Visit Provider Nurse Practitioner Family | DX: R55 Syncope and collapse (principal); I48.0 Paroxysmal atrial fibrillation | CPT/HCPCS: 93225; 93226 ==

== ENCOUNTER → 2023-09-10 | Outpatient (CLI) | payer OTHER, SELFPAY ==
--- NOTE | 2023-09-10 14:28 | CT_ITS ---
INDICATION: GROSS HEMATURIA EXAMINATION: CT Abdomen And Pelvis WO/W Contrast Injection TECHNIQUE: Helically acquired images were obtained of the abdomen and pelvis before and after IV contrast. A radiation dose optimization technique was used for this scan. IV Contrast dosage and agent: [id number] Oral contrast: None. COMPARISON: None. FINDINGS: Visualized lung bases: Unremarkable Liver: Scattered hepatic cysts. Gallbladder: Few small intraluminal stones seen. Spleen: Unremarkable Pancreas: Unremarkable Adrenal Glands: Unremarkable Kidneys/Ureters: Multiple bilateral simple cysts. No hydronephrosis. No obstructing stone, mass or stricture. Vasculature: Mild scattered aortoiliac atherosclerotic calcifications. GI Tract: Unremarkable Lymphadenopathy: None Peritoneum: No ascites. Bladder: Unremarkable Reproductive organs: Unremarkable Bones/Soft tissues: There are diffuse degenerative changes of the spine. Posterior fusion L4-L5. Small left inguinal fat-containing hernia. Right proximal femur hardware. CT/CT Abd/Pelvis W/WO Contrast IMPRESSION: No acute abnormalities in the abdomen or pelvis. Specifically, no findings to explain patient''s hematuria. Electronically Signed: Stan Hayes MD at 17:07 EDT ,
[2023-09-10 15:00] LABS: CREATININE FINGERSTICK < 0.9 mg/dL (0.70-1.30); EGFR FINGERSTICK > 60.0000 mL/min (>60)
== END | disposition home or self-care (01) ==
LOC: CT 14:27
PROVIDERS: PCP Family Medicine; Referring Provider Urology; Visit Provider Urology
DX: R31.0 Gross hematuria (principal)
CPT/HCPCS: 74178; Q9967

== ENCOUNTER → 2023-09-18 | Outpatient (CLI) | payer OTHER, SELFPAY ==
[2023-09-18 09:43] LABS: Hematocrit 43.3 % (40-54); Hemoglobin 13.5 g/dL (13.0-16.5); Mean Corp Hgb Conc 31.2 g/dL (32-36); Mean Corpuscular Volume 99.3 fL (80-94); Platelet Count 322 K/mm3 (150-450); RBC Distribution Width SD 51.3 fl (35.1-43.9); Red Blood Count 4.36 M/mm3 (4.6-6.2); White Blood Count 8.5 K/mm3 (4.4-11.0)
[2023-09-18 10:07] LABS: Anion Gap 4 (5-15); BUN 16 mg/dL (7-18); BUN/Creat Ratio 17.3 RATIO (10-20); Calcium,Total 8.5 mg/dL (8.5-10.1); Chloride 104 mmol/L (98-107); Creatinine, Serum 0.93 mg/dL (0.70-1.30); EST Glomerular Filtration Rate 86 mL/min (>60); Est Glom Filt Rate - Afr Amer 103 mL/min (>60); Glucose 100 mg/dL (74-106); Potassium 4.6 mmol/L (3.5-5.1); Sodium Level 139 mmol/L (136-145)
== END | disposition home or self-care (01) ==
LOC: LAB 09:07
PROVIDERS: PCP Family Medicine; Referring Provider Urology; Visit Provider Urology
DX: Z01.812 Encounter for preprocedural laboratory examination (principal)
CPT/HCPCS: 36415; 80048; 85027

== ENCOUNTER → 2023-10-18 | Outpatient (CLI) | payer OTHER, SELFPAY ==
[2023-10-18 08:51] LABS: Absolute Lymphocyte Count 1.56 X10^3/uL (0.83-4.51); Absolute Neutrophil Count 3.6 X10^3/uL (2.0-7.7); Basophil# 0.05 X10^3/uL; Basophil% 0.9 % (0-1); Eosinophil# 0.07 X10^3/uL; Eosinophils% 1.2 % (0-5); Hematocrit 43.8 % (40-54); Hemoglobin 13.5 g/dL (13.0-16.5); Lymphocyte # 1.56 X10^3/ul (0.83-4.51); Lymphocyte % 27.3 % (19-41); Mean Corp Hgb Conc 30.8 g/dL (32-36); Mean Corpuscular Hgb 30.2 pg (27.0-32.0); Monocyte# 0.47 X10^3/uL; Monocyte% 8.2 % (0-10); NRBC Flagged by Analyzer 0 % (0-5); Neutrophil # 3.55 X10^3/uL (2.7-7.7); Neutrophil % 62.1 % (47-70); Platelet Count 315 K/mm3 (150-450); RBC Distribution Width CV 13.9 % (11.6-14.6); RBC Distribution Width SD 50.7 fl (35.1-43.9); Red Blood Count 4.47 M/mm3 (4.6-6.2); White Blood Count 5.7 K/mm3 (4.4-11.0)
[2023-10-18 09:35] LABS: AST(SGOT) 16 U/L (15-37); Alanine Aminotransfer ALT/SGPT 8 U/L (16-61); Albumin, Serum 3.8 g/dL (3.2-5.0); Alkaline Phosphatase 79 U/L (45-117); Anion Gap 4 (5-15); BUN 22 mg/dL (7-18); BUN/Creat Ratio 24.9 RATIO (10-20); Calcium,Total 8.8 mg/dL (8.5-10.1); Chloride 107 mmol/L (98-107); Cholesterol 172 mg/dL (200); Creatinine, Serum 0.88 mg/dL (0.70-1.30); EST Glomerular Filtration Rate 90 mL/min (>60); Est Glom Filt Rate - Afr Amer 109 mL/min (>60); Globulin 3.7 g/dL (2.2-4.2); Glucose 104 mg/dL (74-106); High Density Lipoprotein 52 mg/dL; Potassium 4.8 mmol/L (3.5-5.1); Protein, Total 7.5 g/dL (6.4-8.2); Sodium Level 139 mmol/L (136-145); Thyroid Stim Hormone (TSH) 0.96 uIU/mL (0.358-3.74); Triglycerides 122 mg/dL; Very Low Density Lipoprotein 24 mg/dL (5-40)
[2023-10-21 14:43] LABS: Hemoglobin A1c 5.5 % (3.8-5.6)
== END | disposition home or self-care (01) ==
LOC: LAB 07:59
PROVIDERS: PCP Family Medicine; Visit Provider Family Medicine
DX: I10 Essential (primary) hypertension (principal); E03.9 Hypothyroidism, unspecified; R73.09 Other abnormal glucose
CPT/HCPCS: 36415; 80053; 80061; 83036; 84439; 84443; 85025

== ENCOUNTER → 2023-11-28 | Outpatient (CLI) | payer OTHER, SELFPAY ==
--- OUTSIDE RECORDS SUMMARY | 2023-11-28 10:05 | XMS RPT_ITS | CCD ---
Author Name Unknown Address [address] [place] [address] Organization [facility] Care Team Providers Care Residence Counselor Name Role Phone ANDERS ESCOBAR Unavailable Unavailable ANDERS ESCOBAR Unavailable Unavailable ANDERS ESCOBAR Unavailable Unavailable Angella Solorio Unavailable Yayo Lloyd Primary Care Provider Yayo Lloyd Primary Care Provider Yayo Lloyd Primary Care Provider [phone] Yayo Lloyd Primary Care Provider [phone] Yayo Lloyd Primary Care Provider MADIHA CABA Attending Unavailable YAYO LLOYD Primary Care UnavailYayo Bolivar MD Primary Care Provider DARIO JONES Referring Unavailable DARIO JONES Attending Unavailable YAYO LLOYD Primary Care Unavailable DARIO JONES Attending Unavailable YAYO LLOYD Primary Care Unavailable GALE KOO Referring Unavailable GALE KOO Attending Unavailable YAYO LLOYD Primary Care Unavailable GALE KOO Attending Unavailable YAYO LLOYD Primary Care Unavailable DARIO JONES Referring Unavailable DARIO JONES Attending Unavailable YAYO LLOYD Primary Care Unavailable Allergies Allergy Classification Reported Allergen(s) Allergy Type Date of Onset Reaction(s) Facility (1 source) SHINGLES VACCINE; Translations: [SHINGLES VACCINE] food allergy 7 localized edema [facility] [place] [facility] Work Phone: Medications Current Medications Medication Drug Class(es) Dates Sig (Normalized) Sig (Original) amantadine hydrochloride 100 mg oral capsule (1 source) Influenza A M2 Protein Inhibitor Start: 11-14-2023 End: 11-13-2024 take 1 capsule by mouth once daily amantadine HCl (SYMMETREL) 100 mg capsule Take 1 capsule by mouth once daily. 30 capsule 11 11/14/2023 11/13/2024 Active Completed/Discontinued Medications Medication Drug Class(es) Dates Sig (Normalized) Sig (Original) amiodarone hydrochloride 200 mg oral tablet (8 sources) Antiarrhythmic Start: 01-20-2023 amiodarone (PACERONE) 200 mg tablet apixaban 5 mg oral tablet (8 sources) Factor Xa Inhibitor Start: 01-25-2023 ELIQUIS 5 mg tab(s) aspirin (13 sources) Nonsteroidal Anti-inflammatory Drug Start: 06-02-2018 ADULT ASPIRIN EC LOW STRENGTH 81 MG TBEC 1 tablet daily ASPIRIN [id number] Patricia Rodriguez LPN Problems Active Problems Problem Classification Problem Date Documented Date Episodic/Chronic Cardiac dysrhythmias (1 source) Atrial fibrillation; Translations: [Unspecified atrial fibrillation] Onset: 11-14-2023 11-14-2023 Chronic Other acquired deformities (1 source) Spondylolisthesis; Translations: [Spondylolisthesis, lumbar region] Onset: 05-06-2017 05-06-2017 Chronic Other connective tissue disease (1 source) Arthrodesis status; Translations: [Arthrodesis status] Onset: 06-09-2018 06-09-2018 Episodic Other hereditary and degenerative nervous system conditions (5 sources) Drug-induced dyskinesia; Translations: [Drug induced subacute dyskinesia] Episodic Other nutritional; endocrine; and metabolic disorders (4 sources) Obese class I; Translations: [Obesity, unspecified] Onset: 08-01-2023 08-01-2023 Chronic Parkinson`s disease (20 sources) Parkinson's disease; Translations: [Parkinson's disease] Onset: 09-28-2020 09-28-2020 Chronic Parkinson`s disease (1 source) Parkinson`s disease; Translations: [Parkinson's disease without dyskinesia, with fluctuating manifestations] Onset: 09-28-2020 Schizophrenia and other psychotic disorders (1 source) Psychotic disorder; 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] Chronic Spondylosis; intervertebral disc disorders; other back problems (1 source) Prolapsed lumbar intervertebral disc; Translations: [Other intervertebral disc displacement, lumbar region] Onset: 05-06-2017 05-06-2017 Chronic Past or Other Problems Problem Classification Problem Date Documented Da te Episodic/Chronic Other acquired deformities (3 sources) Spondylolisthesi s, lumbar region; Translations: [Spondylolisthes is, lumbar region] Onset: 07-15-2017 Episodic Other bone disease and musculoskeletal deformities (1 source) Disorder of bone; Translations: [Disorder of bone density and structure, unspecified] Onset: 05-06-2017 05-06-2017 Episodic Spondylosis; intervertebral disc disorders; other back problems (2 sources) Spinal stenosis, lumbar region; Translations: [Spinal stenosis, lumbar region] Onset: 05-06-2017 05-06-2017 Episodic Unclassified (1 source) Problem Results Test Name Value Interpretation Reference Range Facil ity Vital Signs Date Time Vital Sign Value Performing Clinician Facility 03-06-2023 15:18-0400 Body height 185.4 cm Dario Jones MD Work Phone: [facility] 03-06-2023 15:18-0400 Body weight 116.03 kg Dario Jones MD Work Phone: [facility] 03-06-2023 15:18-0400 SaO2% (BldA) [Mass fraction] 99 % Dario Jones MD Work Phone: [facility] NEGATED: Highlighted [id number] 10:51-0400 BMI (Body Mass Index) 38.4 kg/m2 [facility] Work Phone: NEGATED: Highlighted [id number] 10:51-0400 BP Diastolic 90 mm[Hg] [facility] Work Phone: NEGATED: Highlighted [id number] 10:51-0400 BP Systolic 148 mm[Hg] [facility] Work Phone: NEGATED: Highlighted [id number] 10:51-0400 BP Systolic 142 mm[Hg] [facility] Work Phone: NEGATED: Highlighted [id number] 10:51-0400 Height 185.42 cm [facility] Work Phone: NEGATED: Highlighted [id number] 10:51-0400 Height 185 cm [facility] Work Phone: NEGATED: Highlighted [id number] 10:51-0400 Pulse (Heart Rate) 60 /min [facility] Work Phone: NEGATED: Highlighted [id number] 10:51-0400 Weight 131.54 kg [facility] Work Phone: NEGATED: Highlighted [id number] 10:51-0400 Weight 132 kg [facility] Work Phone: Encounters Encounter Date Encounter Type Care Provider Facility Start: 11-14-2023 End: 11-14-2023 ambulatory Dario Jones MD Work Phone: [facility] Procedures Date Procedure Procedure Detail Performing Clinician Start: 07-20-2022 Adult depression scr eening assessment Dario Jones MD Work Phone: Start: 02-27-2022 Adult depression scr eening assessment Gale THOMASC Work Phone: Start: 07-05-2021 Adult depression scr eening assessment Mita Scott RN Start: 06-09-2018 End: 06-09-2018 Blood pressure outside of normal parameters - follow-up documented Angella Sexton COAGULATION OPERATOR-[employer]PER ASSEMBLER Work Phone: Start: 06-09-2018 End: 06-09-2018 BMI documented as above normal parameters - follow-up documented Angella Sexton COAGULATION OPERATOR-CAMPER ASSEMBLER Work Phone: Start: 06-09-2018 End: 06-09-2018 Current medications documented Angella Carlie RADFORD-CAMPER ASSEMBLER Work Phone: Start: 06-09-2018 End: 06-09-2018 Pain assessment documented as negative - follow-up not required Angella SNOWDEN Work Phone: Start: 06-09-2018 End: 06-09-2018 Tobacco non-user Angella Sexton APRN-CAMPER ASSEMBLER Work Phone: Plan of Treatment Date Care Activity Detail Author Start: 06-15-2032 Urine microalbumin profile DTaP,Tdap,Td Vaccine (4 - Td or Tdap) [facility] Start: 08-01-2023 Covid-19 Vaccine () Covid-19 Vaccine () [facility] Start: 08-01-2023 Influenza vaccination [facility] Start: 07-20-2023 Adult depression screening assessment DEPRESSION SCREENING [facility] Start: 02-27-2023 Adult depression screening assessment DEPRESSION SCREENING [facility] Start: 02-20-2023 COVID-19 VACCINE (4 - Pfizer series) COVID-19 VACCINE (4 - Pfizer series) [facility] Start: 12-01-2022 ADVANCE DIRECTIVE DISCUSSION ADVANCE DIRECTIVE DISCUSSION [facility] Start: 12-01-2022 DEPRESSION ASSESSMENT DEPRESSION ASSESSMENT [facility] Start: 08-01-2022 Influenza vaccination INFLUENZA (#1) [facility] Start: 07-05-2022 Adult depression screening assessment DEPRESSION SCREENING [facility] Start: 05-20-2022 COVID-19 VACCINE (3 - Booster for Pfizer series) COVID-19 VACCINE (3 - Booster for Pfizer series) [facility] Start: 02-14-2022 COVID-19 VACCINE (3 - Booster for Pfizer series) COVID-19 VACCINE (3 - Booster for Pfizer series) [facility] Start: 12-01-2021 ADVANCE DIRECTIVE DISCUSSION ADVANCE DIRECTIVE DISCUSSION [facility] Start: 12-01-2021 DEPRESSION ASSESSMENT DEPRESSION ASSESSMENT [facility] Start: 06-09-2018 End: 06-09-2018 Radex spine lumbosacral minimum 4 views XR LUMBAR 4VWS FLEX/EX [facility] Work Phone: Start: 06-09-2018 End: 06-09-2018 Appointment Appointment [facility] Work Phone: Start: 2017 Pneumococcal Vaccine: 65+ (1 - PCV) Pneumococcal Vaccine: 65+ (1 - PCV) [facility] Start: 2017 PNEUMOCOCCAL: 65+ (1 - PCV) PNEUMOCOCCAL: 65+ (1 - PCV) [facility] Start: 2017 PNEUMOVAX AGE 65 AND OVER WITH 5YR LOOKBACK (#1) PNEUMOVAX AGE 65 AND OVER WITH 5YR LOOKBACK (#1) [facility] Start: 06-17-2015 Shingrix Vaccine (2 of 3) Shingrix Vaccine (2 of 3) [facility] Start: 2012 RSV Vaccine (1 - 1-dose 60+ series) RSV Vaccine (1 - 1-dose 60+ series) [facility] Start: 2002 SHINGRIX VACCINE (1 of 2) SHINGRIX VACCINE (1 of 2) [facility] Start: 1997 COLOGUARD (FIT-DNA) COLOGUARD (FIT-DNA) [facility] Start: 1997 Colonoscopy COLONOSCOPY [facility] Start: 1997 COLORECTAL CANCER SCREENING COLORECTAL CANCER SCREENING [facility] Start: [address] COLONOGRAPHY [facility] Start: 1997 DIABETES SCREEN DIABETES SCREEN [facility] Start: 1997 Diabetes Screening Diabetes Screening [facility] Start: 1997 FECAL OCCULT BLOOD FECAL OCCULT BLOOD [facility] Start: 1997 Screening for malignant neoplasm of colon [facility] Start: 1997 SIGMOIDOSCOPY SIGMOIDOSCOPY [facility] Start: 1987 Lipid 1996 panel - Serum or Plasma Lipid Screening [facility] Start: 1987 Lipid panel Lipid Screening [facility] Start: 1987 LIPID SCREEN LIPID SCREEN [facility] Start: 1971 Urine microalbumin profile [facility] Start: 1970 HEPATITIS C SCREENING HEPATITIS C SCREENING [facility] Start: 1970 Hepatitis C screening Hepatitis C Screening [facility] Patient Education \[id number]-[email or web address]\[email or web address]_ PtEducatio n\[email or web address].pdf [facility] Work Phone: [facility] Immunizations Immunization Date Immunization Notes Care Provider Rigoberto carriechandrakant 10-23-2022 influenza virus vaccine, unspecified formulation Gale Koo PA-C Work Phone: [facility] No information available. Kandy Flores AT [facility] Work Phone: Payers Date Payer Category Payer Unknown [id number] 2022 Unknown [id number] 2019 Unknown [employer] PPO [id number] 2019-Present [phone] [address] [place] [address] PPO [id number] 2019 Unknown [id number] Unknown [id number] Social History Date Type Detail Facility Start: 06-09-2018 End: 06-09-2018 Assertion Unknown if ever smoked [facility] Work Phone: Start: 09-26-2020 End: 03-06-2023 Tobacco smoking status NHIS Never smoked tobacco [facility] Start: 09-26-2020 End: 03-06-2023 Tobacco use and exposure Smokeless tobacco non-user [facility] Start: 09-28-2020 End: 03-06-2023 Alcohol intake Lifetime non-drinker (finding) [facility] Start: 09-26-2020 History SDOH Alcohol Frequency 1 [facility] Start: 1950 Sex Assigned At Male [facility] Start: 02-17-2022 End: 07-19-2022 Exposure to SARS-CoV-2 (event) Not sure [facility] Start: 03-06-2023 End: 07-09-2023 History of Social function [facility] Start: 03-06-2023 End: 07-09-2023 Tobacco use panel [facility] Adult Depression Screening Assessment 1 [facility] Start: 07-03-2021 Gender identity Identifies as male gender (finding) [facility] Start: 04-23-2021 Sexual orientation Heterosexual (brandi bettie) [facility] How often to you hav e a drink containing alcohol? Never [facility] NEGATED: Highlighted rowStart: 06-09-2018 End: 06-09-2018 Employment detail Never smoker [facility] [place] [facility] Work Phone: Clinical Notes 01-30-2022 to 11-14-2023 Dario Jones MD - 11/14/2023 10:06 AM Gale Lyons PA-C - 09/02/2023 5:56 PM Gale Duron PA-C - 07/31/2023 3:07 PM EDTPatient InstructionsPatient Instructions Note Date & Type Note Facility 11-14-2023 Note HNO ID: [id number] Author: Dario Jones MD Service: ? Author Type: Physician Type: Progress Notes Filed: 11/14/2023 3:19 PM Note Text: [facility] - FOLLOW UP EVALUATION - VIRTUAL VISIT Yayo Lloyd MD, MD [facility] [address] [facility] [address] Dear Yayo Lloyd MD, MD: I had the pleasure of seeing Mr. Escobar for follow-up today. As you know he is a 73 year old right-handed male with a history of Parkinson's disease since 2013. We had a visit using: [employer] I have communicated my name and active licensure. The patient's identity and physical location were verified at the time of this visit. Either the patient or their legal parts representative has been informed of the risks and benefits of -- and alternatives to -- treatment through a remote evaluation and consents to proceed with the evaluation remotely. Subjective During his previous visit the following plan was made: Previous plan-07/09/2023 Visit: Parkinson's Disease- Continue your medications as noted below. Dizziness- Increase water intake to 6-8 glasses of water per day. Check your blood pressure sitting and standing. Follow up with primary care/ cardiology about headaches with high blood pressure readings. 3. Follow up as scheduled with Dr. Jones. Interval History He feels like the Parkinson's disease is taking over his body. His knees and fingers get tight. This may last 2-3-4 hours. This morning this hit him at 930AM. He didn't feel better until 130. Now after the 2PM dose he is fine. His on time is variable. His stomach is boating all the time. Movement Disorders Medications Schedule - as of the start of the visit: Medications 5AM 930AM 2PM 630PM 11PM Rytary 195 3 2 2 2 Sinemet 50/200 CR 1 rasagiline 1 mg 1 Parkinson's Motor Complications Medication benefit onset: 60 minutes (Comment: 1-2 hours) Medication duration: 4.5 hours Medication duration: (Comment: 4-4.5 hrs) Wearing off: yes Painful off-state dystonia: yes Dyskinesia: yes Prior Anti-Parkinson Therapies Carbidopa/Levodopa Carbidopa/Levodopa CR Carbidopa/Levodopa ER (Rytary) Pramipexole ALLERGIES No Known Allergies Current Outpatient Medications Medication Sig amantadine HCl (SYMMETREL) 100 mg capsule Take 1 capsule by mouth once daily. carbidopa-levodopa (RYTARY) 36.25-145 mg capsule Take 1 capsule four times a day with each dose of Rytary 195s escitalopram oxalate (LEXAPRO) 5 mg tablet Take 1 tablet by mouth once daily. carbidopa-levodopa CR (SINEMET CR) 50-200 mg per tablet Take 1 tablet by mouth once daily. rasagiline (AZILECT) 1 mg tab Take 1 tablet by mouth once daily. carbidopa-levodopa (RYTARY) 48.75-195 mg capsule Take 3 capsules at 4:30a, take 3 caps at 9a, take 3 caps at 1:30p, 3 caps at 6p dorzolamide-timolol (COSOPT) 22.3-6.8 mg/mL ophthalmic solution INSTILL 1 DROP INTO LEFT EYE TWICE DAILY DIRECTED metoprolol tartrate, short acting, (LOPRESSOR) 25 mg tablet amiodarone (PACERONE) 200 mg tablet ELIQUIS 5 mg tab(s) lisinopril (ZESTRIL) 5 mg tablet levothyroxine 137 mcg cap Take 137 mcg by mouth once daily. [id number] ORAL Take 3 capsules by mouth once daily. alpha lipoic acid 600 mg tab Take 600 tablets by mouth twice daily. No current facility-administered medications for this visit. Questionnaires: In addition, the following areas that may be affected by abnormal involuntary movements were evaluated: Daily activities Difficulties with eatin (none) Difficulties in dressin (none) Difficulties with hygiene activities: 0 (none) Difficulties with handwritin (none) Difficulties with doing hobbies and other activities: 0 (none) Difficulties turning in bed: Yes (mild) Difficulties getting out of bed, car or chair: Yes (slight) Tremors/Gait/Balance Shaking or tremors: 0 (none) Walking and balance problems: 0 (none) Number of falls in the Last Month: 0 Gait freezin (none) Autonomic/Pain Lightheadeness on standin (none) Urinary problems: Yes (slight) Constipation problems: Yes (moderate) Pain and other sensations: Yes (mild) Speech/Swallowing Speech problems: 0 (none) Droolin (none) Chewing and swallowing problems: 0 (none) Sleep/Fatigue Sleep problems: Yes (moderate) Daytime sleepiness: Yes (slight) Fatigue: Yes (mild) Mood/Behavior Depression: PHQ-9 Score: 4 usually representing no significant (0-4) depression. Anxiety: BARBRA-7 Total Score: 4 usually representing no significant (0-4) anxiety. Finally, the following table shows the patient's overall global physical and mental health using the PROMIS scale: PROMIS-10 Flowsheet Row Distance Health from 11/14/2023 in [facility] Distance Health from 07/09/2023 in Neurology Global Physical Health T Score 44.9 -- Global Mental Health T Score 43.5 43.5 0-10 Standard Pain Scale 4 -- *PROMIS-10 scoring scale: mean = 50, over 50 (more content not included)... [facility] 11-14-2023 History of Presen t illness Narrative [facility] - FOLLOW UP EVALUATION - VIRTUAL VISIT Yayo Lloyd MD, MD [address] [facility] [address] Dear Yayo Lloyd MD, MD: I had the pleasure of seeing Mr. Escobar for follow-up today. As you know he is a 73 year old right-handed male with a history of Parkinson's disease since 2013. We had a visit using: [employer] I have communicated my name and active licensure. The patient's identity and physical location were verified at the time of this visit. Either the patient or their legal parts representative has been informed of the risks and benefits of -- and alternatives to -- treatment through a remote evaluation and consents to proceed with the evaluation remotely. Subjective During his previous visit the following plan was made: Previous plan-07/09/2023 Visit: Parkinson's Disease- Continue your medications as noted below. Dizziness- Increase water intake to 6-8 glasses of water per day. Check your blood pressure sitting and standing. Follow up with primary care/ cardiology about headaches with high blood pressure readings. 3. Follow up as scheduled with Dr. Jones. Interval History He feels like the Parkinson's disease is taking over his body. His knees and fingers get tight. This may last 2-3-4 hours. This morning this hit him at 930AM. He didn't feel better until 130. Now after the 2PM dose he is fine. His on time is variable. His stomach is boating all the time. Movement Disorders Medications Schedule - as of the start of the visit: Medications 5AM 930AM 2PM 630PM 11PM Rytary 195 3 2 2 2 Sinemet 50/200 CR 1 rasagiline 1 mg 1 Parkinson's Motor Complications Medication benefit onset: 60 minutes (Comment: 1-2 hours) Medication duration: 4.5 hours Medication duration: (Comment: 4-4.5 hrs) Wearing off: yes Painful off-state dystonia: yes Dyskinesia: yes Prior Anti-Parkinson Therapies Carbidopa/Levodopa Carbidopa/Levodopa CR Carbidopa/Levodopa ER (Rytary) Pramipexole ALLERGIES No Known Allergies Current Outpatient Medications Medication Sig amantadine HCl (SYMMETREL) 100 mg capsule Take 1 capsule by mouth once daily. carbidopa-levodopa (RYTARY) 36.25-145 mg capsule Take 1 capsule four times a day with each dose of Rytary 195s escitalopram oxalate (LEXAPRO) 5 mg tablet Take 1 tablet by mouth once daily. carbidopa-levodopa CR (SINEMET CR) 50-200 mg per tablet Take 1 tablet by mouth once daily. rasagiline (AZILECT) 1 mg tab Take 1 tablet by mouth once daily. carbidopa-levodopa (RYTARY) 48.75-195 mg capsule Take 3 capsules at 4:30a, take 3 caps at 9a, take 3 caps at 1:30p, 3 caps at 6p dorzolamide-timolol (COSOPT) 22.3-6.8 mg/mL ophthalmic solution INSTILL 1 DROP INTO LEFT EYE TWICE DAILY DIRECTED metoprolol tartrate, short acting, (LOPRESSOR) 25 mg tablet amiodarone (PACERONE) 200 mg tablet ELIQUIS 5 mg tab(s) lisinopril (ZESTRIL) 5 mg tablet levothyroxine 137 mcg cap Take 137 mcg by mouth once daily. [id number] ORAL Take 3 capsules by mouth once daily. alpha lipoic acid 600 mg tab Take 600 tablets by mouth twice daily. No current facility-administered medications for this visit. Questionnaires: In addition, the following areas that may be affected by abnormal involuntary movements were evaluated: Daily activities Difficulties with eatin (none) Difficulties in dressin (none) Difficulties with hygiene activities: 0 (none) Difficulties with handwritin (none) Difficulties with doing hobbies and other activities: 0 (none) Difficulties turning in bed: Yes (mild) Difficulties getting out of bed, car or chair: Yes (slight) Tremors/Gait/Balance Shaking or tremors: 0 (none) Walking and balance problems: 0 (none) Number of falls in the Last Month: 0 Gait freezin (none) Autonomic/Pain Lightheadeness on standin (none) Urinary problems: Yes (slight) Constipation problems: Yes (moderate) Pain and other sensations: Yes (mild) Speech/Swallowing Speech problems: 0 (none) Droolin (none) Chewing and swallowing problems: 0 (none) Sleep/Fatigue Sleep problems: Yes (moderate) Daytime sleepiness: Yes (slight) Fatigue: Yes (mild) Mood/Behavior Depression: PHQ-9 Score: 4 usually representing no significant (0-4) depression. Anxiety: BARBRA-7 Total Score: 4 usually representing no significant (0-4) anxiety. Finally, the following table shows the patient's overall global physical and mental health using the PROMIS scale: PROMIS-10 Flowsheet Row Distance Health from 11/14/2023 in [facility] Distance Health from 07/09/2023 in Neurology Global Physical Health T Score 44.9 -- Global Mental Health T Score 43.5 43.5 0-10 Standard Pain Scale 4 -- *PROMIS-10 scoring scale: mean = 50, over 50 is above average, under 50 is below average In addition, the following non-motor symptoms and palliative concerns were evaluated: Sleep/Fatigue: REM sleep behavior disorder: no Restless Legs Syndrome: no Leg swelling: Impaired sense of smell: Cognition: Cognitive impairment: no MoCA Cognitive assessment: Hallucinations and delusions: yes He may look at a coat rack and see a person there Apathy: no Impulse control disorder: Palliative Concerns: Caregiver burden: Spiritual concerns: Advanced directives on file: Palliative services: Therapy and Exercise: Last PT Date: Last OT Date: Date: Exercises Regularly: Objective Neurological Exam Motor Moderate dyskinesia. Pertinent Studies 10/06/2015 Vandana Scan FINDINGS: There is fairly symmetric activity within the head of the caudate bilaterally, however there is significantly diminished activity within the bilateral putamina; findings are compatible with a parkinsonian syndrome. IMPRESSION: Findings compatible with a parkinsonian syndrome. 11/19/2019 MRI Brain w w/o contrast Mild cerebral atrophy without significant white matter disease. No enhancement. Assessment and Plan: Assessment Mr. Escobar is a right-handed 73 year old male with Parkinson's disease with motor fluctuations and moderate dyskinesia. The following are the current problems noted and addressed during this visit: Parkinson's disease without dyskinesia, with fluctuating manifestations (primary encounter diagnosis) Longstanding persistent atrial fibrillation (hcc) Plan 11/14/2023 Visit: Parkinson's disease with unpredictable fluctuations and dyskinesia - Start Amantadine 100 mg once daily at 6AM. Updated Movement Disorder Medication Schedule: Medications 6AM 10AM 2PM 6PM 10PM Rytary 195 3 2 2 2 Sinemet 50/200 CR 1 Amantadine 100 mg 1 Thank you for allowing me to be part of the clinical care of this patient! I look forward to continued participation in the patient s care with you. Please do not hesitate to call with any questions. Sincerely, Dario Jones MD documented in this encounter [facility] 09-02-2023 Note HNO ID: [id number] Author: Gale Koo PA-C Service: ? Author Type: Physician Mounter Hand Type: Progress Notes Filed: 09/02/2023 6:04 PM Note Text: [facility] - VIRTUAL VIS[facility] PCP: Yayo Lloyd MD, MD I performed this clinical encounter by utilizing a real time telehealth video connection between my location and the patient's location. The patient's location was confirmed during the visit. I obtained verbal consent from the patient to perform this clinical encounter utilizing video and prepared the patient by answering any questions they had about the telehealth interaction. I had the pleasure of seeing Mr. Escobar for follow up today by virtual visit. As you know he is a 73 year old right-handed male with a history of PD. Interval History Since Last Visit: He was seen in July and the Rytary dosing was changed to help with dyskinenesias. They have improved a bit but he not following the schedule as put forth at the last visit. Allergies: ALLERGIES No Known Allergies Current Medications: Current Outpatient Medications Medication Sig carbidopa-levodopa (RYTARY) 36.25-145 mg capsule Take 1 capsule four times a day with each dose of Rytary 195s escitalopram oxalate (LEXAPRO) 5 mg tablet Take 1 tablet by mouth once daily. carbidopa-levodopa CR (SINEMET CR) 50-200 mg per tablet Take 1 tablet by mouth once daily. rasagiline (AZILECT) 1 mg tab Take 1 tablet by mouth once daily. carbidopa-levodopa (RYTARY) 48.75-195 mg capsule Take 3 capsules at 4:30a, take 3 caps at 9a, take 3 caps at 1:30p, 3 caps at 6p dorzolamide-timolol (COSOPT) 22.3-6.8 mg/mL ophthalmic solution INSTILL 1 DROP INTO LEFT EYE TWICE DAILY DIRECTED metoprolol tartrate, short acting, (LOPRESSOR) 25 mg tablet amiodarone (PACERONE) 200 mg tablet ELIQUIS 5 mg tab(s) lisinopril (ZESTRIL) 5 mg tablet levothyroxine 137 mcg cap Take 137 mcg by mouth once daily. [id number] ORAL Take 3 capsules by mouth once daily. alpha lipoic acid 600 mg tab Take 600 tablets by mouth twice daily. No current facility-administered medications for this visit. Examination: AANDOx3 speech normal moderate dyskinesias Assessment and Plan: Mr. Escobar is a right-handed 73 year old male with idiopathic Parkinson's disease treated with Rytary with continued symptom control but with moderate dyskinesias. We discussed a new schedule for the Rytary using both 195 and 145 caps. Stopping the Rasagiline is also recommended. The following are the current problems noted and addressed during this visit: Levodopa-induced dyskinesia (primary encounter diagnosis) Plan: for the dyskinesias - Rytary 195 2,2,1,1, Rytary 145 1,1,2,1 stop Rasagiline Approximately 20 minutes was spent with the patient, of which more than 50% of the time was spent in counseling and/developing a treatment plan . The patient understands and agrees with the plan of care outlined. Gale Koo PA-C [facility] 09-02-2023 History of Presen t illness Narrative [facility] - [facility]UAL VISIT PCP: Yayo Lloyd MD, MD I performed this clinical encounter by utilizing a real time telehealth video connection between my location and the patient's location. The patient's location was confirmed during the visit. I obtained verbal consent from the patient to perform this clinical encounter utilizing video and prepared the patient by answering any questions they had about the telehealth interaction. I had the pleasure of seeing Mr. Escobar for follow up today by virtual visit. As you know he is a 73 year old right-handed male with a history of PD. Interval History Since Last Visit: He was seen in July and the Rytary dosing was changed to help with dyskinenesias. They have improved a bit but he not following the schedule as put forth at the last visit. Allergies: ALLERGIES No Known Allergies Current Medications: Current Outpatient Medications Medication Sig carbidopa-levodopa (RYTARY) 36.25-145 mg capsule Take 1 capsule four times a day with each dose of Rytary 195s escitalopram oxalate (LEXAPRO) 5 mg tablet Take 1 tablet by mouth once daily. carbidopa-levodopa CR (SINEMET CR) 50-200 mg per tablet Take 1 tablet by mouth once daily. rasagiline (AZILECT) 1 mg tab Take 1 tablet by mouth once daily. carbidopa-levodopa (RYTARY) 48.75-195 mg capsule Take 3 capsules at 4:30a, take 3 caps at 9a, take 3 caps at 1:30p, 3 caps at 6p dorzolamide-timolol (COSOPT) 22.3-6.8 mg/mL ophthalmic solution INSTILL 1 DROP INTO LEFT EYE TWICE DAILY DIRECTED metoprolol tartrate, short acting, (LOPRESSOR) 25 mg tablet amiodarone (PACERONE) 200 mg tablet ELIQUIS 5 mg tab(s) lisinopril (ZESTRIL) 5 mg tablet levothyroxine 137 mcg cap Take 137 mcg by mouth once daily. [id number] ORAL Take 3 capsules by mouth once daily. alpha lipoic acid 600 mg tab Take 600 tablets by mouth twice daily. No current facility-administered medications for this visit. Examination: A&Ox3 speech normal moderate dyskinesias Assessment and Plan: Mr. Escobar is a right-handed 73 year old male with idiopathic Parkinson's disease treated with Rytary with continued symptom control but with moderate dyskinesias. We discussed a new schedule for the Rytary using both 195 and 145 caps. Stopping the Rasagiline is also recommended. The following are the current problems noted and addressed during this visit: Levodopa-induced dyskinesia (primary encounter diagnosis) Plan: for the dyskinesias - Rytary 195 2,2,1,1, Rytary 145 1,1,2,1 stop Rasagiline Approximately 20 minutes was spent with the patient, of which more than 50% of the time was spent in counseling and/developing a treatment plan . The patient understands and agrees with the plan of care outlined. Gale Koo PA-C documented in this encounter [facility] 07-31-2023 Note HNO ID: [id number] Author: Gale Koo PA-C Service: ? Author Type: Physician Mounter Hand Type: Progress Notes Filed: 08/01/2023 3:03 PM Note Text: [facility] - VIRTUAL VISIT PCP: Yayo Lloyd MD, MD I performed this clinical encounter by utilizing a real time telehealth video connection between my location and the patient's location. The patient's location was confirmed during the visit. I obtained verbal consent from the patient to perform this clinical encounter utilizing video and prepared the patient by answering any questions they had about the telehealth interaction. I had the pleasure of seeing Mr. Escobar for follow up today by virtual visit. As you know he is a 73 year old right-handed male with a history of PD. Interval History Since Last Visit: Today he relates that he has episodic sensations that start in his feet , travel to his bilateral UE and end up at his head. He feels these happen with wearing off medications. He is taking Rytary 195 3 tabs 4 times a day with significant dyskinesias. He reduced the Rytary to 2 caps 4 times a day and felt terrible but 3 Caps he feels is too much. In addition, the following areas that may be affected by abnormal involuntary movements were evaluated: Daily activities Difficulties with eatin (none) Difficulties in dressing: Yes (slight) Difficulties with hygiene activities: 0 (none) Difficulties with handwriting: Yes (moderate) Difficulties with doing hobbies and other activities: 0 (none) Difficulties turning in bed: Yes (slight) Difficulties getting out of bed, car or chair: Yes (slight) Tremors/Gait/Balance Shaking or tremors: 0 (none) Walking and balance problems: 0 (none) Number of falls in the Last Month: once Gait freezin (none) Autonomic/Pain Lightheadeness on standing: Yes (mild) Urinary problems: Yes (mild) Constipation problems: Yes (slight) Pain and other sensations: Yes (mild) Speech/Swallowing Speech problems: 0 (none) Droolin (none) Chewing and swallowing problems: 0 (none) Sleep/Fatigue Sleep problems: Yes (mild) Daytime sleepiness: 0 (none) Fatigue: Yes (slight) REM sleep behavior disorder: no Restless Legs Syndrome: no Finally, the following table shows the patient's overall global physical and mental health using the PROMIS scale: PROMIS-10 Flowsheet Row [facility] from 07/09/2023 in Neurology [facility] from 12/20/2022 in Neurological [facility] Global Physical Health T Score -- 47.7 Global Mental Health T Score 43.5 43.5 0-10 Standard Pain Scale -- 5 *PROMIS-10 scoring scale: mean = 50, over 50 is above average, under 50 is below average Allergies: ALLERGIES No Known Allergies Current Medications: Current Outpatient Medications Medication Sig escitalopram oxalate (LEXAPRO) 5 mg tablet Take 1 tablet by mouth once daily. carbidopa-levodopa CR (SINEMET CR) 50-200 mg per tablet Take 1 tablet by mouth once daily. rasagiline (AZILECT) 1 mg tab Take 1 tablet by mouth once daily. carbidopa-levodopa (RYTARY) 48.75-195 mg capsule Take 3 capsules at 4:30a, take 3 caps at 9a, take 3 caps at 1:30p, 3 caps at 6p dorzolamide-timolol (COSOPT) 22.3-6.8 mg/mL ophthalmic solution INSTILL 1 DROP INTO LEFT EYE TWICE DAILY DIRECTED metoprolol tartrate, short acting, (LOPRESSOR) 25 mg tablet amiodarone (PACERONE) 200 mg tablet ELIQUIS 5 mg tab(s) lisinopril (ZESTRIL) 5 mg tablet levothyroxine 137 mcg cap Take 137 mcg by mouth once daily. [id number] ORAL Take 3 capsules by mouth once daily. alpha lipoic acid 600 mg tab Take 600 tablets by mouth twice daily. No current facility-administered medications for this visit. Examination: AANDOx3 speech normal moderate to severe dyskinesias involving the trunk and upper extremities. Assessment and Plan: Mr. Escobar is a right-handed 73 year old male with idiopathic Parkinson's disease treated with Rytary. 3 Caps of the 195 is too much for him in regards to the Dyskinesias and 2 caps is not enough and there is bothersome wearing off. changing one capsule to the 145mg dosing may provide the right amount of medication. The following are the current problems noted and addressed during this visit: No diagnosis found. Plan: for the PD - please change the Rytary to 2 caps of the 195 and 1 cap of the 145 4 times a day. if still dyskinetic then stop the rasagline. Approximately 30 minutes was spent with the patient, of which more than 50% of the time was spent in counseling and developing a treatment plan . The patient understands and agrees with the plan of care outlined. Gale Koo PA-C [facility] 07-31-2023 History of Presen t illness Narrative [facility] - VIRTUAL VISIT PCP: Yayo Lloyd MD, MD I performed this clinical encounter by utilizing a real time telehealth video connection between my location and the patient's location. The patient's location was confirmed during the visit. I obtained verbal consent from the patient to perform this clinical encounter utilizing video and prepared the patient by answering any questions they had about the telehealth interaction. I had the pleasure of seeing Mr. Escobar for follow up today by virtual visit. As you know he is a 73 year old right-handed male with a history of PD. Interval History Since Last Visit: Today he relates that he has episodic sensations that start in his feet , travel to his bilateral UE and end up at his head. He feels these happen with wearing off medications. He is taking Rytary 195 3 tabs 4 times a day with significant dyskinesias. He reduced the Rytary to 2 caps 4 times a day and felt terrible but 3 Caps he feels is too much. In addition, the following areas that may be affected by abnormal involuntary movements were evaluated: Daily activities Difficulties with eatin (none) Difficulties in dressing: Yes (slight) Difficulties with hygiene activities: 0 (none) Difficulties with handwriting: Yes (moderate) Difficulties with doing hobbies and other activities: 0 (none) Difficulties turning in bed: Yes (slight) Difficulties getting out of bed, car or chair: Yes (slight) Tremors/Gait/Balance Shaking or tremors: 0 (none) Walking and balance problems: 0 (none) Number of falls in the Last Month: once Gait freezin (none) Autonomic/Pain Lightheadeness on standing: Yes (mild) Urinary problems: Yes (mild) Constipation problems: Yes (slight) Pain and other sensations: Yes (mild) Speech/Swallowing Speech problems: 0 (none) Droolin (none) Chewing and swallowing problems: 0 (none) Sleep/Fatigue Sleep problems: Yes (mild) Daytime sleepiness: 0 (none) Fatigue: Yes (slight) REM sleep behavior disorder: no Restless Legs Syndrome: no Finally, the following table shows the patient's overall global physical and mental health using the PROMIS scale: PROMIS-10 Flowsheet Row [facility] from 07/09/2023 in Neurology [facility] from 12/20/2022 in Neurological [facility] Global Physical Health T Score -- 47.7 Global Mental Health T Score 43.5 43.5 0-10 Standard Pain Scale -- 5 *PROMIS-10 scoring scale: mean = 50, over 50 is above average, under 50 is below average Allergies: ALLERGIES No Known Allergies Current Medications: Current Outpatient Medications Medication Sig escitalopram oxalate (LEXAPRO) 5 mg tablet Take 1 tablet by mouth once daily. carbidopa-levodopa CR (SINEMET CR) 50-200 mg per tablet Take 1 tablet by mouth once daily. rasagiline (AZILECT) 1 mg tab Take 1 tablet by mouth once daily. carbidopa-levodopa (RYTARY) 48.75-195 mg capsule Take 3 capsules at 4:30a, take 3 caps at 9a, take 3 caps at 1:30p, 3 caps at 6p dorzolamide-timolol (COSOPT) 22.3-6.8 mg/mL ophthalmic solution INSTILL 1 DROP INTO LEFT EYE TWICE DAILY DIRECTED metoprolol tartrate, short acting, (LOPRESSOR) 25 mg tablet amiodarone (PACERONE) 200 mg tablet ELIQUIS 5 mg tab(s) lisinopril (ZESTRIL) 5 mg tablet levothyroxine 137 mcg cap Take 137 mcg by mouth once daily. [id number] ORAL Take 3 capsules by mouth once daily. alpha lipoic acid 600 mg tab Take 600 tablets by mouth twice daily. No current facility-administered medications for this visit. Examination: A&Ox3 speech normal moderate to severe dyskinesias involving the trunk and upper extremities. Assessment and Plan: Mr. Esocbar is a right-handed 73 year old male with idiopathic Parkinson's disease treated with Rytary. 3 Caps of the 195 is too much for him in regards to the Dyskinesias and 2 caps is not enough and there is bothersome wearing off. changing one capsule to the 145mg dosing may provide the right amount of medication. The following are the current problems noted and addressed during this visit: No diagnosis found. Plan: for the PD - please change the Rytary to 2 caps of the 195 and 1 cap of the 145 4 times a day. if still dyskinetic then stop the rasagline. Approximately 30 minutes was spent with the patient, of which more than 50% of the time was spent in counseling and developing a treatment plan . The patient understands and agrees with the plan of care outlined. Gale Koo PA-C documented in this encounter [facility] 07-24-2023 Miscellaneous Notes Message left for Mrs. Escobar to return call to office to discuss Kan's symptoms. NI PHONE Name of caller: Kan Relationship to patient: Self If not self Will need patient permission to release results or disclose health information with called documented in fyi. Was permission obtained from patient? Yes Patient identified by Name and Date of . ( Kan Escobar, 1950). Yes Reason for Call : Patient calling to speak with a nurse. He reports spells that over the last two days have worsened. These began a couple of months ago originally and only lasted 20 minutes at a time. Yesterday he had one that last 8 hours and one this morning that started at 7 am and just went away. He says during these he gets heaviness in his legs and his feet get numb. Then these go up into his fingers and head. He gets numbness in hands, headaches that cause his blood pressure to rise. He also urinates every 15-30 minutes during these spells. Number to return call [phone] Ludy Escobar (Spouse) Okay to leave a message? Yes documented in this encounter [facility] 07-09-2023 Instructions Madiha Caba APRN.ERIK - 07/09/2023 6:18 PM EDT It was a pleasure to see you today. We addressed the following diagnoses: Parkinson's disease (hcc) (primary encounter diagnosis) My recommendations are as follows: 07/09/2023 Visit: Parkinson's Disease- Continue your medications as noted below. Dizziness- Increase water intake to 6-8 glasses of water per day. Check your blood pressure sitting and standing. Follow up with primary care/ cardiology about headaches with high blood pressure readings. 3. Follow up as scheduled with Dr. Jones. Movement Disorders Medication Schedule: Medications 5AM 930AM 2PM 630PM 11PM Rytary 195 3 2 2 2 Sinemet 50/200 CR 1 rasagiline 1 mg 1 No follow-ups on file. If there are any concerns before your next visit, please call or you can send a message through [employer]. You can also now schedule and select appointments through [employer]. Madiha Caba APRN.ERIK documented in this encounter [facility] 07-09-2023 Note HNO ID: [id number] Author: Madiha Caba APRN.ERIK Service: ? Author Type: Nurse Practitioner Type: Progress Notes Filed: 07/09/2023 6:18 PM Note Text: [facility] - FOLLOW UP EVALUATION - VIRTUAL VISIT Yayo Lloyd [address] [facility] [address] [facility] [id number] Dear Yayo Lloyd: I had the pleasure of seeing Mr. Escobar for follow-up today. As you know he is a 73 year old right-handed male with a history of Parkinson's disease since 2013. He is seen with his . We had a visit using: [employer] I have communicated my name and active licensure. The patient's identity and physical location were verified at the time of this visit. Either the patient or their legal parts representative has been informed of the risks and benefits of -- and alternatives to -- treatment through a remote evaluation and consents to proceed with the evaluation remotely. Subjective During his previous visit the following plan was made: Previous plan-03/06/2023 Visit: Parkinson's disease - Stable. Will watch for change in dyskinesia or worsening hallucinations. Dyskinesia - Stable. Hallucinations - Mild, could use Seroquel if worse. Interval History Presents for vv. When he stands up and starts walking he has been having dizziness, started 2 days ago. Not drinking enough. Dyskinesas are bothersome on [id number] 3 capsules so he reduced to 3/2/2/2 which has helped the dyskinesias in the afternoon. He still has full body dyskinesias moderate in the morning with the 3 caps of Rytary 195. Not effecting his balance. No longer having hallucinations since reducing Rytary. Used to see people at his house. Movement Disorders Medications Schedule - as of the start of the visit: Medications 5AM 930AM 2PM 630PM 11PM Rytary 195 3 2 2 2 Sinemet 50/200 CR 1 rasagiline 1 mg 1 Parkinson's Motor Complications Medication benefit onset: 60 minutes (Comment: 1-2 hours) Medication duration: 4.5 hours Medication duration: (Comment: 4-4.5 hrs) Wearing off: yes Painful off-state dystonia: no Dyskinesia: no Prior Anti-Parkinson Therapies Carbidopa/Levodopa Carbidopa/Levodopa CR Carbidopa/Levodopa ER (Rytary) Pramipexole ALLERGIES No Known Allergies Current Outpatient Medications Medication Sig escitalopram oxalate (LEXAPRO) 5 mg tablet Take 1 tablet by mouth once daily. carbidopa-levodopa CR (SINEMET CR) 50-200 mg per tablet Take 1 tablet by mouth once daily. rasagiline (AZILECT) 1 mg tab Take 1 tablet by mouth once daily. carbidopa-levodopa (RYTARY) 48.75-195 mg capsule Take 3 capsules at 4:30a, take 3 caps at 9a, take 3 caps at 1:30p, 3 caps at 6p dorzolamide-timolol (COSOPT) 22.3-6.8 mg/mL ophthalmic solution INSTILL 1 DROP INTO LEFT EYE TWICE DAILY DIRECTED metoprolol tartrate, short acting, (LOPRESSOR) 25 mg tablet amiodarone (PACERONE) 200 mg tablet ELIQUIS 5 mg tab(s) lisinopril (ZESTRIL) 5 mg tablet levothyroxine 137 mcg cap Take 137 mcg by mouth once daily. [id number] ORAL Take 3 capsules by mouth once daily. alpha lipoic acid 600 mg tab Take 600 tablets by mouth twice daily. No current facility-administered medications for this visit. Questionnaires: In addition, the following areas that may be affected by abnormal involuntary movements were evaluated: Daily activities Difficulties with eatin (none) Difficulties in dressin (none) Difficulties with hygiene activities: 0 (none) Difficulties with handwriting: Yes (moderate) Difficulties with doing hobbies and other activities: Yes (slight) Difficulties turning in bed: Yes (slight) Difficulties getting out of bed, car or chair: Yes (slight) Tremors/Gait/Balance Shaking or tremors: 0 (none) Walking and balance problems: Yes (slight) Number of falls in the Last Month: 0 Gait freezin (none) Autonomic/Pain Lightheadeness on standing: Yes (mild) Urinary problems: 0 (none) Constipation problems: Yes (slight) Pain and other sensations: Yes (moderate) Speech/Swallowing Speech problems: 0 (none) Droolin (none) Chewing and swallowing problems: 0 (none) Sleep/Fatigue Sleep problems: Yes (moderate) Daytime sleepiness: Yes (slight) Fatigue: Yes (mild) Mood/Behavior Depression: PHQ-9 Score: 4 usually representing no significant (0-4) depression. Anxiety: BARBRA-7 Total Score: 1 usually representing no significant (0-4) anxiety. Finally, the following table shows the patient's overall global physical and mental health using the PROMIS scale: PROMIS-10 Flowsheet Row [facility] from 07/09/2023 in Neurology [facility] from 12/20/2022 in Neurological [facility] Global Physical Health T Score -- 47.7 Global Mental Health T Score 43.5 43.5 0-10 Standard Pain Scale -- 5 *PROMIS-10 scoring scale: mean = 50, over 50 is above average, under 50 is below average Objective He is accompanied by his spouse. General: Awake, eva (more content not included)... [facility] 07-09-2023 History of Presen t illness Narrative [facility] - FOLLOW UP EVALUATION - VIRTUAL VISIT Yayo Lloyd [address] [facility] [place] [address] [facility] [address] Dear Yayo Lloyd: I had the pleasure of seeing Mr. Escobar for follow-up today. As you know he is a 73 year old right-handed male with a history of Parkinson's disease since 2013. He is seen with his . We had a visit using: [employer] I have communicated my name and active licensure. The patient's identity and physical location were verified at the time of this visit. Either the patient or their legal parts representative has been informed of the risks and benefits of -- and alternatives to -- treatment through a remote evaluation and consents to proceed with the evaluation remotely. Subjective During his previous visit the following plan was made: Previous plan-03/06/2023 Visit: Parkinson's disease - Stable. Will watch for change in dyskinesia or worsening hallucinations. Dyskinesia - Stable. Hallucinations - Mild, could use Seroquel if worse. Interval History Presents for vv. When he stands up and starts walking he has been having dizziness, started 2 days ago. Not drinking enough. Dyskinesas are bothersome on [id number] 3 capsules so he reduced to 3/2/2/2 which has helped the dyskinesias in the afternoon. He still has full body dyskinesias moderate in the morning with the 3 caps of Rytary 195. Not effecting his balance. No longer having hallucinations since reducing Rytary. Used to see people at his house. Movement Disorders Medications Schedule - as of the start of the visit: Medications 5AM 930AM 2PM 630PM 11PM Rytary 195 3 2 2 2 Sinemet 50/200 CR 1 rasagiline 1 mg 1 Parkinson's Motor Complications Medication benefit onset: 60 minutes (Comment: 1-2 hours) Medication duration: 4.5 hours Medication duration: (Comment: 4-4.5 hrs) Wearing off: yes Painful off-state dystonia: no Dyskinesia: no Prior Anti-Parkinson Therapies Carbidopa/Levodopa Carbidopa/Levodopa CR Carbidopa/Levodopa ER (Rytary) Pramipexole ALLERGIES No Known Allergies Current Outpatient Medications Medication Sig escitalopram oxalate (LEXAPRO) 5 mg tablet Take 1 tablet by mouth once daily. carbidopa-levodopa CR (SINEMET CR) 50-200 mg per tablet Take 1 tablet by mouth once daily. rasagiline (AZILECT) 1 mg tab Take 1 tablet by mouth once daily. carbidopa-levodopa (RYTARY) 48.75-195 mg capsule Take 3 capsules at 4:30a, take 3 caps at 9a, take 3 caps at 1:30p, 3 caps at 6p dorzolamide-timolol (COSOPT) 22.3-6.8 mg/mL ophthalmic solution INSTILL 1 DROP INTO LEFT EYE TWICE DAILY DIRECTED metoprolol tartrate, short acting, (LOPRESSOR) 25 mg tablet amiodarone (PACERONE) 200 mg tablet ELIQUIS 5 mg tab(s) lisinopril (ZESTRIL) 5 mg tablet levothyroxine 137 mcg cap Take 137 mcg by mouth once daily. [id number] ORAL Take 3 capsules by mouth once daily. alpha lipoic acid 600 mg tab Take 600 tablets by mouth twice daily. No current facility-administered medications for this visit. Questionnaires: In addition, the following areas that may be affected by abnormal involuntary movements were evaluated: Daily activities Difficulties with eatin (none) Difficulties in dressin (none) Difficulties with hygiene activities: 0 (none) Difficulties with handwriting: Yes (moderate) Difficulties with doing hobbies and other activities: Yes (slight) Difficulties turning in bed: Yes (slight) Difficulties getting out of bed, car or chair: Yes (slight) Tremors/Gait/Balance Shaking or tremors: 0 (none) Walking and balance problems: Yes (slight) Number of falls in the Last Month: 0 Gait freezin (none) Autonomic/Pain Lightheadeness on standing: Yes (mild) Urinary problems: 0 (none) Constipation problems: Yes (slight) Pain and other sensations: Yes (moderate) Speech/Swallowing Speech problems: 0 (none) Droolin (none) Chewing and swallowing problems: 0 (none) Sleep/Fatigue Sleep problems: Yes (moderate) Daytime sleepiness: Yes (slight) Fatigue: Yes (mild) Mood/Behavior Depression: PHQ-9 Score: 4 usually representing no significant (0-4) depression. Anxiety: BARBRA-7 Total Score: 1 usually representing no significant (0-4) anxiety. Finally, the following table shows the patient's overall global physical and mental health using the PROMIS scale: PROMIS-10 Flowsheet Row Distance Health from 07/09/2023 in Neurology Distance Health from 12/20/2022 in [facility] Global Physical Health T Score -- 47.7 Global Mental Health T Score 43.5 43.5 0-10 Standard Pain Scale -- 5 *PROMIS-10 scoring scale: mean = 50, over 50 is above average, under 50 is below average Objective He is accompanied by his spouse. General: Awake, alert, interactive, no acute distress, good nutritional status, normal development, well-kept man. Moderate whole body dyskineisas noted. Movement Disorders Scales Performed: MDS-UPDRS Motor subscale condition of exam Medication Off/On/Naiive ON Time of UPDRS 09 Time of Last Medication 0600 Last Medication Taken Rytary 195 DBS Right N/A DBS Left N/A MDS-UPDRS Motor subscale scores Speech 1-Slight. Loss of modulation, diction or volume, but still all words easy to understand. Facial Expression 1-Slight. Minimal masked facies manifested only by decreased frequency of blinking. Rigidity Neck Rigidity Right Upper Extremity Rigidity Left Upper Extremity Rigidity Right Lower Extremity Rigidity Left Lower Extremity Finger Taps Right 1-Slight. a) the regular rhythm is broken with one or two interruptions or hesitations of the tapping movement, b) slight slowing, c) the amplitude decrements near the end of the 10 taps. Finger Taps Left 1-Slight. a) the regular rhythm is broken with one or two interruptions or hesitations of the tapping movement, b) slight slowing, c) the amplitude decrements near the end of the 10 taps. Hand Movements Right 1-Slight. a) the regular rhythm is broken with one or two interruptions or hesitations of the movement, b) slight slowing, c) the amplitude decrements near the end of the task. Hand Movements Left 1-Slight. a) the regular rhythm is broken with one or two interruptions or hesitations of the movement, b) slight slowing, c) the amplitude decrements near the end of the task. Arm Movements Right 1-Slight. a) the regular rhythm is broken with one or two interruptions or hesitations of the movement, b) slight slowing, c) the amplitude decrements near the end of the sequence. Arm Movements Left 1-Slight. a) the regular rhythm is broken with one or two interruptions or hesitations of the movement, b) slight slowing, c) the amplitude decrements near the end of the sequence. Toe Taps Right Toe Taps Left Leg Agility Right Leg Agility Left Arise From Chair 0-Normal. No problems. Able to arise quickly without hesitation. Gait 0-Normal. No problems. Gait Freezing 0-Normal. No freezing. Posture Stability Posture 1-Slight. Not quite erect, but posture could be normal for older person. Body Bradykinesia 2-Mild. Mild global slowness and poverty of spontaneous movements. Postural Tremor Hand Right Postural Tremor Hand Left Kinetic Tremor Right 0-Normal. No tremor. Kinetic Tremor Left 0-Normal. No tremor. Rest Tremor Amplitude Right Upper Extremity 0-Normal. No tremor. Rest Tremor Amplitude Left Upper Extremity 0-Normal. No tremor. Rest Tremor Amplitude Right Lower Extremity 0-Normal. No tremor. Rest Tremor Amplitude Right Lower Extremity 0-Normal. No tremor. Rest Tremor Amplitude Lip/Jaw 0-Normal. No tremor. Rest Tremor Constancy 0-Normal. No tremor. MDS-UPDRS Motor subscale totals Left Total Right Total Midline Total Tremor Total / 10 PIGD Total / 3 Overall Total % Change Compared to Last Filed Total Pertinent Studies 10/06/2015 [facility] Scan FINDINGS: There is fairly symmetric activity within the head of the caudate bilaterally, however there is significantly diminished activity within the bilateral putamina; findings are compatible with a parkinsonian syndrome. IMPRESSION: Findings compatible with a parkinsonian syndrome. 11/19/2019 MRI Brain w w/o contrast Mild cerebral atrophy without significant white matter disease. No enhancement. Assessment and Plan: Assessment Mr. Escobar is a right-handed 73 year old male with Parkinson's disease with motor fluctuations and moderate dyskinesia. He presents today virtually for a sooner follow up appointment for new onset dizziness. For the last two days he had dizziness upon standing. He has not noticed the dizziness today. He does not drink much water. He was advised on conservative treatment for orthostasis and advised to check orthostatic vitals at home when he experiences dizziness. He also reports some headaches with higher blood pressure. The following are the current problems noted and addressed during this visit: Parkinson's disease (hcc) (primary encounter diagnosis) Plan 07/09/2023 Visit: Parkinson's Disease- Continue your medications as noted below. Dizziness- Increase water intake to 6-8 glasses of water per day. Check your blood pressure sitting and standing. Follow up with primary care/ cardiology about headaches with high blood pressure readings. 3. Follow up as scheduled with Dr. Jones. Interested in clinical research? Not currently Updated Movement Disorder Medication Schedule: Medications 5AM 930AM 2PM 630PM 11PM Rytary 195 3 2 2 2 Sinemet 50/200 CR 1 rasagiline 1 mg 1 Level of service : 71372 ( 30-39 min). Time spent 35 min on the day of service, which included preparing to see the patient, [id number] patient care, completing clinical documentation, obtaining and/or reviewing separately obtained history, performing a medically appropriate examination, and counseling and educating the patient/family/caregiver. Thank you for allowing me to be part of the clinical care of this patient! I look forward to continued participation in the patient s care with you. Please do not hesitate to call with any questions. Sincerely, Madiha Caba APRN.ERIK documented in this encounter [facility] 06-09-2023 Miscellaneous Notes Patient's phones requesting 90 day refills as follows due to Rx coverage/insurance changed: When approved Rx escribed to [facility]. 03/06/23 FUV w/Dr. Jones Requested Prescriptions Pending Prescriptions Disp Refills rasagiline (AZILECT) 1 mg tab 90 tablet 3 Sig: Take 1 tablet by mouth once daily. carbidopa-levodopa (RYTARY) 48.75-195 mg capsule 1080 capsule 3 Sig: Take 3 capsules at 4:30a, take 3 caps at 9a, take 3 caps at 1:30p, 3 caps at 6p Please review and advise. [place] [facility] [place] [place] in this encounter [facility] 04-30-2023 Miscellaneous Notes I spoke with Mrs. Escobar to clarify new Rytary dose times. Mrs. Escobar verbalizes good understanding. Kan will continue to take rasagiline once daily and Sinemet CR at 2200. Message left on for MrLoc & Mrs. Escobar to change time of Rytary doses for [place] to 6am, 10am, 2pm & 6pm per Dr. Jones's recommendation. Sounds like a big change in short time, was doing well so I would wonder about UTI still. This was a 4.5 hour schedule. Could reduce to 4 hour interval, with the same amount of Rytary 4 times daily and see if that covers him better. e.g. 6AM, 10AM, 2PM, 6PM Dario Jones MD Spoke to pt and his , he states his freezing, wearing off and increased fatigue is worse in the afternoon and early evening. He thinks the Rytary is only lasting about 3 hours. He also mentioned he took his 1:30pm dose andit still has not kicked in yet (current time 3:15pm). Pt denied any cold symptoms, falls or infection. Pt is aware his concern will be forwarded to Dr Jones for review. Updated Movement Disorders Medication Schedule: Medications 5AM 930AM 2PM 630PM 11PM Rytary 195 3 3 3 3 Sinemet 50/200 CR 1 rasagiline 1 mg Lala Kiser RN NI PHONE NAME OF CALLER: Ludy RELATIONSHIP TO PATIENT: spouse PATIENT ID'D BY NAME/: yes REASON FOR CALL: States that his medication is not lasting as long as it used to - wearing off too soon and experiencing breakthrough symptoms. Would like to discuss. CALLBACK #: [phone] OK TO LEAVE MESSAGE: yes LAST FUV: March 2023 with II documented in this encounter [facility] 03-06-2023 Note HNO ID: [id number] Author: Dario Jones MD Service: ? Author Type: Physician Type: Progress Notes Filed: 03/06/2023 9:52 PM Note Text: [facility] - FOLLOW UP EVALUATION MD Sandra Silva [address] [facility] [address] Dear Yayo Lloyd MD: I had the pleasure of seeing Mr. Escobar for follow-up today. As you know he is a 72 year old right-handed male with a history of Parkinson's disease since 2013. He is seen with his . Subjective Previous Plan-12/20/2022 Visit: Parkinson's disease - No changes Headache and glaucoma - follow with jailer. 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 His Parkinson's disease is doing fairly well. He gets some times when he is more off and his legs feel heavy. He had this at 130PM today before his 2PM dose. He has some hallucinations still. Movement Disorders Medications Schedule - as of the start of the visit: Medications 430AM 9AM 130PM 6PM 11PM Rytary 195 3 3 3 3 Sinemet 50/200 CR 1 rasagiline 1 mg 1 Parkinson's Motor Complications Medication benefit onset: 60 minutes (Comment: 1-2 hours) Medication duration: 4.5 hours Medication duration: (Comment: 4-4.5 hrs) Wearing off: yes Painful off-state dystonia: no Dyskinesia: no Prior Anti-Parkinson Therapies Carbidopa/Levodopa Carbidopa/Levodopa CR Carbidopa/Levodopa ER (Rytary) Pramipexole Questionnaires: In addition, the following areas that may be affected by abnormal involuntary movements were evaluated: Daily activities Difficulties with eatin (none) Difficulties in dressin (none) Difficulties with hygiene activities: 0 (none) Difficulties with handwritin (none) Difficulties with doing hobbies and other activities: 0 (none) Difficulties turning in bed: Yes (slight) Difficulties getting out of bed, car or chair: 0 (none) Tremors/Gait/Balance Shaking or tremors: 0 (none) Walking and balance problems: 0 (none) Number of falls in the Last Month: 1 Gait freezin (none) Autonomic/Pain Lightheadeness on standin (none) Urinary problems: 0 (none) Constipation problems: Yes (mild) Pain and other sensations: Yes (moderate) Speech/Swallowing Speech problems: 0 (none) Droolin (none) Chewing and swallowing problems: 0 (none) Sleep/Fatigue Sleep problems: Yes (mild) Daytime sleepiness: Yes (mild) Fatigue: Yes (mild) Mood/Behavior Depression: PHQ-9 Score: 3 usually representing no significant (0-4) depression. Anxiety: BARBRA-7 Total Score: 4 usually representing no significant (0-4) anxiety. Finally, the following table shows the patient's overall global physical and mental health using the PROMIS scale: PROMIS-10 Flowsheet Row Distance Health from 12/20/2022 in [facility] Distance Health from 10/10/2022 in [facility] Global Physical Health T Score 47.7 44.9 Global Mental Health T Score 43.5 41.1 0-10 Standard Pain Scale 5 4 *PROMIS-10 scoring scale: mean = 50, over 50 is above average, under 50 is below average ALLERGIES No Known Allergies Current Outpatient Medications Medication Sig dorzolamide-timolol (COSOPT) 22.3-6.8 mg/mL ophthalmic solution INSTILL 1 DROP INTO LEFT EYE TWICE DAILY DIRECTED metoprolol tartrate, short acting, (LOPRESSOR) 25 mg tablet amiodarone (PACERONE) 200 mg tablet ELIQUIS 5 mg tab(s) lisinopril (ZESTRIL) 5 mg tablet escitalopram oxalate (LEXAPRO) 5 mg tablet carbidopa-levodopa (RYTARY) 48.75-195 mg capsule Take 4 capsules at 5AM and 3 capsules at 930AM, 2PM and 630PM (Patient taking differently: Take 3 capsules at 4:30a, take 3 caps at 9a, take 3 caps at 1:30p, 3 caps at 6p.) carbidopa-levodopa CR (SINEMET CR) 50-200 mg per tablet Take 1 tablet by mouth daily at bedtime. levothyroxine 137 mcg cap Take 137 mcg by mouth once daily. rasagiline (AZILECT) 1 mg tab Take 1 tablet by mouth once daily. (Patient taking differently: Take 1 mg by mouth once daily. Pt takes 1 tab at 4:30am.) [id number] ORAL Take 3 capsules by mouth once daily. alpha lipoic acid 600 mg tab Take 600 tablets by mouth twice daily. QUEtiapine (SEROQUEL) 25 mg tablet Take 0.5 tablets by mouth daily at bedtime. (Patient not taking: Reported on 03/04/2023) GLUTATHIONE ORAL Take 2 capsules by mouth. (Patient not taking: Reported on 03/04/2023) netarsudil (RHOPRESSA) 0.02 % 1 Drop daily at bedtime. (Patient not taking: Reported on 03/04/2023) bimatoprost (LUMIGAN) 0.01 % drop ophthalmic drops 1 Drop daily at bedtime. (Patient not taking: Reported on 03/04/2023) Stanton [id number] 500 mg-500 mcg -1 mg-12.5 mg cap Take by mouth. (Patient not taking: Reported on 03/04/2023) No current facility-administered medications for this visit. Objective Vital Signs: Ht 185.4 cm (6' 1 ) Wt 116 kg (255 lb 12.8 oz) SpO2 99% BMI 33.75 kg/m? Orthostatic V (more content not included)... [facility] 03-06-2023 Instructions Dario Jones MD - 03/06/2023 3:49 PM EDT It was a pleasure to see you today. We addressed the following diagnoses: Parkinson's disease (hcc) (primary encounter diagnosis) Levodopa-induced dyskinesia My recommendations are as follows: Movement Disorders Medication Schedule: Medications 5AM 930AM 2PM 630PM 11PM Rytary 195 3 3 3 3 Sinemet 50/200 CR 1 rasagiline 1 mg 1 Return at or around: 09/05/23 If there are any concerns before your next visit, please call or you can send a message through [employer]. You can also now schedule and select appointments through [employer]. Dario Jones MD documented in this encounter [facility] 03-06-2023 History of Presen t illness Narrative [facility] - FOLLOW UP EVALUATION MD Sandra Silva [address] [facility] [place] [address] [facility] [address] Dear Yayo Lloyd MD: I had the pleasure of seeing Mr. Escobar for follow-up today. As you know he is a 72 year old right-handed male with a history of Parkinson's disease since 2013. He is seen with his . Subjective Previous Plan-12/20/2022 Visit: Parkinson's disease - No changes Headache and glaucoma - follow with jailer. 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 His Parkinson's disease is doing fairly well. He gets some times when he is more off and his legs feel heavy. He had this at 130PM today before his 2PM dose. He has some hallucinations still. Movement Disorders Medications Schedule - as of the start of the visit: Medications 430AM 9AM 130PM 6PM 11PM Rytary 195 3 3 3 3 Sinemet 50/200 CR 1 rasagiline 1 mg 1 Parkinson's Motor Complications Medication benefit onset: 60 minutes (Comment: 1-2 hours) Medication duration: 4.5 hours Medication duration: (Comment: 4-4.5 hrs) Wearing off: yes Painful off-state dystonia: no Dyskinesia: no Prior Anti-Parkinson Therapies Carbidopa/Levodopa Carbidopa/Levodopa CR Carbidopa/Levodopa ER (Rytary) Pramipexole Questionnaires: In addition, the following areas that may be affected by abnormal involuntary movements were evaluated: Daily activities Difficulties with eatin (none) Difficulties in dressin (none) Difficulties with hygiene activities: 0 (none) Difficulties with handwritin (none) Difficulties with doing hobbies and other activities: 0 (none) Difficulties turning in bed: Yes (slight) Difficulties getting out of bed, car or chair: 0 (none) Tremors/Gait/Balance Shaking or tremors: 0 (none) Walking and balance problems: 0 (none) Number of falls in the Last Month: 1 Gait freezin (none) Autonomic/Pain Lightheadeness on standin (none) Urinary problems: 0 (none) Constipation problems: Yes (mild) Pain and other sensations: Yes (moderate) Speech/Swallowing Speech problems: 0 (none) Droolin (none) Chewing and swallowing problems: 0 (none) Sleep/Fatigue Sleep problems: Yes (mild) Daytime sleepiness: Yes (mild) Fatigue: Yes (mild) Mood/Behavior Depression: PHQ-9 Score: 3 usually representing no significant (0-4) depression. Anxiety: BARBRA-7 Total Score: 4 usually representing no significant (0-4) anxiety. Finally, the following table shows the patient's overall global physical and mental health using the PROMIS scale: PROMIS-10 Flowsheet Row Distance Health from 12/20/2022 in [facility] Distance Health from 10/10/2022 in [facility] Global Physical Health T Score 47.7 44.9 Global Mental Health T Score 43.5 41.1 0-10 Standard Pain Scale 5 4 *PROMIS-10 scoring scale: mean = 50, over 50 is above average, under 50 is below average ALLERGIES No Known Allergies Current Outpatient Medications Medication Sig dorzolamide-timolol (COSOPT) 22.3-6.8 mg/mL ophthalmic solution INSTILL 1 DROP INTO LEFT EYE TWICE DAILY DIRECTED metoprolol tartrate, short acting, (LOPRESSOR) 25 mg tablet amiodarone (PACERONE) 200 mg tablet ELIQUIS 5 mg tab(s) lisinopril (ZESTRIL) 5 mg tablet escitalopram oxalate (LEXAPRO) 5 mg tablet carbidopa-levodopa (RYTARY) 48.75-195 mg capsule Take 4 capsules at 5AM and 3 capsules at 930AM, 2PM and 630PM (Patient taking differently: Take 3 capsules at 4:30a, take 3 caps at 9a, take 3 caps at 1:30p, 3 caps at 6p.) carbidopa-levodopa CR (SINEMET CR) 50-200 mg per tablet Take 1 tablet by mouth daily at bedtime. levothyroxine 137 mcg cap Take 137 mcg by mouth once daily. rasagiline (AZILECT) 1 mg tab Take 1 tablet by mouth once daily. (Patient taking differently: Take 1 mg by mouth once daily. Pt takes 1 tab at 4:30am.) [id number] ORAL Take 3 capsules by mouth once daily. alpha lipoic acid 600 mg tab Take 600 tablets by mouth twice daily. QUEtiapine (SEROQUEL) 25 mg tablet Take 0.5 tablets by mouth daily at bedtime. (Patient not taking: Reported on 03/04/2023) GLUTATHIONE ORAL Take 2 capsules by mouth. (Patient not taking: Reported on 03/04/2023) netarsudil (RHOPRESSA) 0.02 % 1 Drop daily at bedtime. (Patient not taking: Reported on 03/04/2023) bimatoprost (LUMIGAN) 0.01 % drop ophthalmic drops 1 Drop daily at bedtime. (Patient not taking: Reported on 03/04/2023) Stanton [id number] 500 mg-500 mcg -1 mg-12.5 mg cap Take by mouth. (Patient not taking: Reported on 03/04/2023) No current facility-administered medications for this visit. Objective Vital Signs: Ht 185.4 cm (6' 1 ) Wt 116 kg (255 lb 12.8 oz) SpO2 99% BMI 33.75 kg/m Orthostatic Vitals: Sitting: BP 134/78 Pulse 58 Standing: BP 124/81 Pulse 64 Weight: 116 kg (255 lb 12.8 oz) Height: 185.4 cm (6' 1 ) No LMP for male patient. Body mass index is 33.75 kg/m . General Neurological Examination: Neurological Exam Motor See UPDRS. There is moderate dyskinesia. Movement Disorders Scales Performed: MDS-UPDRS Motor subscale condition of exam Medication Off/On/Naiive ON Time of UPDRS 1543 Time of Last Medication 1330 Last Medication Taken Sinemet 25/100 X 2 DBS Right N/A DBS Left N/A MDS-UPDRS Motor subscale scores Speech 1-Slight. Loss of modulation, diction or volume, but still all words easy to understand. Facial Expression 1-Slight. Minimal masked facies manifested only by decreased frequency of blinking. Rigidity Neck 2-Mild. Rigidity detected without the activation maneuver, but full range of motion is easily achieved. Rigidity Right Upper Extremity 1-Slight. Rigidity only detected with activation maneuver. Rigidity Left Upper Extremity 2-Mild. Rigidity detected without the activation maneuver, but full range of motion is easily achieved. Rigidity Right Lower Extremity 2-Mild. Rigidity detected without the activation maneuver, but full range of motion is easily achieved. Rigidity Left Lower Extremity 2-Mild. Rigidity detected without the activation maneuver, but full range of motion is easily achieved. Finger Taps Right 1-Slight. a) the regular rhythm is broken with one or two interruptions or hesitations of the tapping movement, b) slight slowing, c) the amplitude decrements near the end of the 10 taps. Finger Taps Left 1-Slight. a) the regular rhythm is broken with one or two interruptions or hesitations of the tapping movement, b) slight slowing, c) the amplitude decrements near the end of the 10 taps. Hand Movements Right 1-Slight. a) the regular rhythm is broken with one or two interruptions or hesitations of the movement, b) slight slowing, c) the amplitude decrements near the end of the task. Hand Movements Left 0-Normal. No problem. Arm Movements Right 0-Normal. No problems. Arm Movements Left 0-Normal. No problems. Toe Taps Right 1-Slight. a) the regular rhythm is broken with one or two interruptions or hesitations of the tapping movement, b) slight slowing, c) the amplitude decrements near the end of the ten taps. Toe Taps Left 2-Mild. a) 3 to 5 interruptions during the tapping movements, b) mild slowing, c) the amplitude decrements midway in the task. Leg Agility Right 1-Slight. a) the regular rhythm is broken with one or two interruptions or hesitations of the movement, b) slight slowing, c) the amplitude decrements near the end of the task. Leg Agility Left 2-Mild. a) 3 to 5 interruptions during the movements, b) mild slowness, c) the amplitude decrements midway in the task. Arise From Chair 0-Normal. No problems. Able to arise quickly without hesitation. Gait 1-Slight. Independent walking with minor gait impairment. Gait Freezing 0-Normal. No freezing. Posture Stability 1-Slight. 3-5 steps, but subject recovers unaided. Posture 0-Normal. No problems. Body Bradykinesia 2-Mild. Mild global slowness and poverty of spontaneous movements. Postural Tremor Hand Right 0-Normal. No tremor. Postural Tremor Hand Left 0-Normal. No tremor. Kinetic Tremor Right 0-Normal. No tremor. Kinetic Tremor Left 0-Normal. No tremor. Rest Tremor Amplitude Right Upper Extremity 0-Normal. No tremor. Rest Tremor Amplitude Left Upper Extremity 0-Normal. No tremor. Rest Tremor Amplitude Right Lower Extremity 0-Normal. No tremor. Rest Tremor Amplitude Right Lower Extremity 0-Normal. No tremor. Rest Tremor Amplitude Lip/Jaw 0-Normal. No tremor. Rest Tremor Constancy 0-Normal. No tremor. MDS-UPDRS Motor subscale totals Left Total 9 Right Total 7 Midline Total 8 Tremor Total / 10 0 PIGD Total / 3 2 Overall Total 24 % Change Compared to Last Filed Total Pertinent Studies 10/06/2015 Vandana Scan FINDINGS: There is fairly symmetric activity within the head of the caudate bilaterally, however there is significantly diminished activity within the bilateral putamina; findings are compatible with a parkinsonian syndrome. IMPRESSION: Findings compatible with a parkinsonian syndrome. 11/19/2019 MRI Brain w w/o contrast Mild cerebral atrophy without significant white matter disease. No enhancement. Assessment and Plan: Assessment Mr. Escobar is a right-handed 72 year old year old male with Parkinson's disease with motor fluctuations and moderate dyskinesia. The following are the current problems noted and addressed during this visit: No diagnosis found. Plan 03/06/2023 Visit: Parkinson's disease - Stable. Will watch for change in dyskinesia or worsening hallucinations. Dyskinesia - Stable. Hallucinations - Mild, could use Seroquel if worse. Patient's perception of importance for healthcare provider to let them know of research trials for which they may be eligible? Very Important Updated Movement Disorders Medication Schedule: Medications 5AM 930AM 2PM 630PM 11PM Rytary 195 3 3 3 3 Sinemet 50/200 CR 1 rasagiline 1 mg 1 Medical Decision Making: Problems: Moderate: 1+ chronic illnesses with change and 2+ stable chronic illnesses Risk: Moderate: Drug management and Moderate risk from testing/treatment Medical Decision Making Level: 4 - Moderate Thank you for allowing me to be part of the clinical care of this patient! I look forward to continued participation in the patient s care with you. Please do not hesitate to call with any questions. Sincerely, Dario Jones MD documented in this encounter [facility] 01-30-2023 Miscellaneous Notes Pt's requesting refill as follows: Last FUV Dec 2022 with [facility] - he is almost out and needs to ship RAY. Requested Prescriptions Pending Prescriptions Disp Refills carbidopa-levodopa (RYTARY) 48.75-195 mg capsule 390 capsule 3 Sig: Take 4 capsules at 5AM and 3 capsules at 930AM, 2PM and 630PM Upon approval, script will be sent electronically to the patient's pharmacy. Ashley Ortiz, [facility] III documented in this encounter [facility] 12-20-2022 Note HNO ID: [id number] Author: Dario Jones MD Service: ? Author Type: Physician Type: Progress Notes Filed: 12/20/2022 2:27 PM Note Text: [facility] - FOLLOW UP EVALUATION - VIRTUAL VISIT Yayo Lloyd MD [address] [address] Dear Yayo Lloyd MD: I had the pleasure of seeing Mr. Escobar for follow-up today. As you know he is a 72 year old right-handed male with a history of Parkinson's disease since 2013. He is seen with his . We had a visit using: [employer] I received consent from the patient to perform the visit using this platform. Subjective During his previous visit the following plan was made: Previous plan-10/10/2022 Visit: Parkinson's disease with Hallucinations - Stop AM Mirapex. Continue Rytary, rasagiline and Sinemet CR. If hallucinations worsen take Seroquel 25 mg, 1/2 tablet at bedtime. Interval History He had eye surgery. 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 Now he is having trouble seeing still. He has been feeling sick every day. He is getting migraine like headaches now too. He has not been hallucinating much, just once in the last week. We had given him Seroquel. He may have had trouble tolerating this and isn't taking right now. His Parkinson's disease symptoms have been alright. He was having some dyskinesia with 4 Rytary and is better with 3. Movement Disorders Medications Schedule - as of the start of the visit: Medications 5AM 930AM 2PM 630PM 11PM Rytary 195 4 3 3 3 Sinemet 50/200 CR 1 rasagiline 1 mg 1 Parkinson's Motor Complications Medication benefit onset: 60 minutes (Comment: 1-2 hours) Medication duration: 4.5 hours Medication duration: (Comment: 4-4.5 hrs) Wearing off: yes Painful off-state dystonia: no Dyskinesia: no Prior Anti-Parkinson Therapies Carbidopa/Levodopa Carbidopa/Levodopa CR Carbidopa/Levodopa ER (Rytary) Pramipexole ALLERGIES No Known Allergies Current Outpatient Medications Medication Sig QUEtiapine (SEROQUEL) 25 mg tablet Take 0.5 tablets by mouth daily at bedtime. levothyroxine (SYNTHROID) 175 mcg tablet Take 1 tablet by mouth once daily. carbidopa-levodopa (RYTARY) 48.75-195 mg capsule Take 4 capsules at 5AM and 3 capsules at 930AM, 2PM and 630PM carbidopa-levodopa CR (SINEMET CR) 50-200 mg per tablet Take 1 tablet by mouth daily at bedtime. carbidopa-levodopa CR (SINEMET CR) 50-200 mg per tablet Take 1 tablet by mouth daily at bedtime. pramipexole (MIRAPEX) 1 mg tablet Take 0.5 tablets by mouth three times daily. rasagiline (AZILECT) 1 mg tab Take 1 tablet by mouth once daily. GLUTATHIONE ORAL Take 2 capsules by mouth. netarsudil (RHOPRESSA) 0.02 % 1 Drop daily at bedtime. bimatoprost (LUMIGAN) 0.01 % drop ophthalmic drops 1 Drop daily at bedtime. dorzolamide-timolol (COSOPT) 22.3-6.8 mg/mL ophthalmic solution 1 Drop twice daily. Stanton [id number] 500 mg-500 mcg -1 mg-12.5 mg cap Take by mouth. NMBUOBG-SEHMJONBS-NHRL ORAL Take 3 capsules by mouth once daily. alpha lipoic acid 600 mg tab Take 600 tablets by mouth twice daily. aspirin, enteric coated (ASPIRIN, ENTERIC COATED) 81 mg EC tablet Take 81 mg by mouth once daily. Lactobacillus acidophilus (PROBIOTIC ORAL) Take by mouth once daily. No current facility-administered medications for this visit. Questionnaires: In addition, the following areas that may be affected by abnormal involuntary movements were evaluated: Daily activities Difficulties with eatin (none) Difficulties in dressin (none) Difficulties with hygiene activities: 0 (none) Difficulties with handwritin (none) Difficulties with doing hobbies and other activities: 0 (none) Difficulties turning in bed: 0 (none) Difficulties getting out of bed, car or chair: 0 (none) Tremors/Gait/Balance Shaking or tremors: 0 (none) Walking and balance problems: Yes (slight) Number of falls in the Last Month: 0 Gait freezin (none) Autonomic/Pain Lightheadeness on standing: Yes (slight) Urinary problems: 0 (none) Constipation problems: Yes (mild) Pain and other sensations: Yes (severe) Speech/Swallowing Speech problems: 0 (none) Droolin (none) Chewing and swallowing problems: 0 (none) Sleep/Fatigue Sleep problems: Yes (moderate) Daytime sleepiness: Yes (mild) Fatigue: Yes (slight) Mood/Behavior Depression: PHQ-9 Score: 5 usually representing mild (5-9) depression. Anxiety: BARBRA-7 Total Score: 7 usually representing mild (5-9) anxiety. Finally, the following table shows the patient's overall global physical and mental health using the PROMIS scale: PROMIS-10 Flowsheet Row Distance Health from 12/20/2022 in [facility] Distance Health from 10/10/2022 in [facility] Global Physical Health T Score 47.7 44.9 Global Mental Health T Score 43.5 41.1 0-10 Standard Pain Scale 5 4 * (more content not included)... [facility] 12-20-2022 History of Presen t illness Narrative [facility] - FOLLOW UP EVALUATION - VIRTUAL VISIT Yayo Lloyd MD [address] [facility] [address] Dear Yayo Lloyd MD: I had the pleasure of seeing Mr. Escobar for follow-up today. As you know he is a 72 year old right-handed male with a history of Parkinson's disease since 2013. He is seen with his . We had a visit using: [employer] I received consent from the patient to perform the visit using this platform. Subjective During his previous visit the following plan was made: Previous plan-10/10/2022 Visit: Parkinson's disease with Hallucinations - Stop AM Mirapex. Continue Rytary, rasagiline and Sinemet CR. If hallucinations worsen take Seroquel 25 mg, 1/2 tablet at bedtime. Interval History He had eye surgery. 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 Now he is having trouble seeing still. He has been feeling sick every day. He is getting migraine like headaches now too. He has not been hallucinating much, just once in the last week. We had given him Seroquel. He may have had trouble tolerating this and isn't taking right now. His Parkinson's disease symptoms have been alright. He was having some dyskinesia with 4 Rytary and is better with 3. Movement Disorders Medications Schedule - as of the start of the visit: Medications 5AM 930AM 2PM 630PM 11PM Rytary 195 4 3 3 3 Sinemet 50/200 CR 1 rasagiline 1 mg 1 Parkinson's Motor Complications Medication benefit onset: 60 minutes (Comment: 1-2 hours) Medication duration: 4.5 hours Medication duration: (Comment: 4-4.5 hrs) Wearing off: yes Painful off-state dystonia: no Dyskinesia: no Prior Anti-Parkinson Therapies Carbidopa/Levodopa Carbidopa/Levodopa CR Carbidopa/Levodopa ER (Rytary) Pramipexole ALLERGIES No Known Allergies Current Outpatient Medications Medication Sig QUEtiapine (SEROQUEL) 25 mg tablet Take 0.5 tablets by mouth daily at bedtime. levothyroxine (SYNTHROID) 175 mcg tablet Take 1 tablet by mouth once daily. carbidopa-levodopa (RYTARY) 48.75-195 mg capsule Take 4 capsules at 5AM and 3 capsules at 930AM, 2PM and 630PM carbidopa-levodopa CR (SINEMET CR) 50-200 mg per tablet Take 1 tablet by mouth daily at bedtime. carbidopa-levodopa CR (SINEMET CR) 50-200 mg per tablet Take 1 tablet by mouth daily at bedtime. pramipexole (MIRAPEX) 1 mg tablet Take 0.5 tablets by mouth three times daily. rasagiline (AZILECT) 1 mg tab Take 1 tablet by mouth once daily. GLUTATHIONE ORAL Take 2 capsules by mouth. netarsudil (RHOPRESSA) 0.02 % 1 Drop daily at bedtime. bimatoprost (LUMIGAN) 0.01 % drop ophthalmic drops 1 Drop daily at bedtime. dorzolamide-timolol (COSOPT) 22.3-6.8 mg/mL ophthalmic solution 1 Drop twice daily. Stanton [id number]-Etvihhussxw 500 mg-500 mcg -1 mg-12.5 mg cap Take by mouth. SQGRESU-WEKGNNDFZ-LOTN ORAL Take 3 capsules by mouth once daily. alpha lipoic acid 600 mg tab Take 600 tablets by mouth twice daily. aspirin, enteric coated (ASPIRIN, ENTERIC COATED) 81 mg EC tablet Take 81 mg by mouth once daily. Lactobacillus acidophilus (PROBIOTIC ORAL) Take by mouth once daily. No current facility-administered medications for this visit. Questionnaires: In addition, the following areas that may be affected by abnormal involuntary movements were evaluated: Daily activities Difficulties with eatin (none) Difficulties in dressin (none) Difficulties with hygiene activities: 0 (none) Difficulties with handwritin (none) Difficulties with doing hobbies and other activities: 0 (none) Difficulties turning in bed: 0 (none) Difficulties getting out of bed, car or chair: 0 (none) Tremors/Gait/Balance Shaking or tremors: 0 (none) Walking and balance problems: Yes (slight) Number of falls in the Last Month: 0 Gait freezin (none) Autonomic/Pain Lightheadeness on standing: Yes (slight) Urinary problems: 0 (none) Constipation problems: Yes (mild) Pain and other sensations: Yes (severe) Speech/Swallowing Speech problems: 0 (none) Droolin (none) Chewing and swallowing problems: 0 (none) Sleep/Fatigue Sleep problems: Yes (moderate) Daytime sleepiness: Yes (mild) Fatigue: Yes (slight) Mood/Behavior Depression: PHQ-9 Score: 5 usually representing mild (5-9) depression. Anxiety: BARBRA-7 Total Score: 7 usually representing mild (5-9) anxiety. Finally, the following table shows the patient's overall global physical and mental health using the PROMIS scale: PROMIS-10 Flowsheet Row Distance Health from 12/20/2022 in [facility] Distance Health from 10/10/2022 in [facility] Global Physical Health T Score 47.7 44.9 Global Mental Health T Score 43.5 41.1 0-10 Standard Pain Scale 5 4 *PROMIS-10 scoring scale: mean = 50, over 50 is above average, under 50 is below average In addition, the following non-motor symptoms and palliative concerns were evaluated: Sleep/Fatigue: REM sleep behavior disorder: no Restless Legs Syndrome: no Leg swelling: Impaired sense of smell: Cognition: Cognitive impairment: no MoCA Cognitive assessment: Hallucinations and delusions: yes He may look at a coat rack and see a person there Apathy: no Impulse control disorder: Palliative Concerns: Caregiver burden: Spiritual concerns: Advanced directives on file: Palliative services: Therapy and Exercise: Last PT Date: Last OT Date: Date: Exercises Regularly: Objective Neurological Exam Motor Mild hypophonia, He is slight slower on the left > right. No dyskinesia or tremor. Pertinent Studies 10/06/2015 Vandana Scan FINDINGS: There is fairly symmetric activity within the head of the caudate bilaterally, however there is significantly diminished activity within the bilateral putamina; findings are compatible with a parkinsonian syndrome. IMPRESSION: Findings compatible with a parkinsonian syndrome. 11/19/2019 MRI Brain w w/o contrast Mild cerebral atrophy without significant white matter disease. No enhancement. Assessment and Plan: Assessment Mr. Escobar is a right-handed 72 year old male with Parkinson's disease with motor fluctuations and moderate dyskinesia. The following are the current problems noted and addressed during this visit: Parkinson's disease (hcc) (primary encounter diagnosis) Levodopa-induced dyskinesia Plan 12/20/2022 Visit: Parkinson's disease - No changes Headache and glaucoma - follow with jailer. Updated Movement Disorder Medication Schedule: Medications 5AM 930AM 2PM 630PM 11PM Rytary 195 3 3 3 3 Sinemet 50/200 CR 1 rasagiline 1 mg 1 Medical Decision Making: Problems: Moderate: 1+ chronic illnesses with change Risk: Moderate: Drug management Medical Decision Making Level: 4 - Moderate Thank you for allowing me to be part of the clinical care of this patient! I look forward to continued participation in the patient s care with you. Please do not hesitate to call with any questions. Sincerely, Dario Jones MD documented in this encounter [facility] 10-10-2022 History of Presen t illness Narrative [facility] - FOLLOW UP EVALUATION Yayo Lloyd MD [address] [facility] [address] I had the pleasure of seeing Mr. Escobar for follow up today. He is a 72 year old right-handed male with a history of Parkinson's disease since 2013. He is seen alone. We had a visit using: [employer] I received consent from the patient to perform the visit using this platform. Subjective Previous Plan-07/26/2022 Visit: Parkinson's disease - Stable despite circumstances. Mild re-emergance of hallucinations - Will watch. Will reduce Mirapex now, and can start Seroquel if becomes worse. 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 He sweats a lot. This is more when sitting. He has lost weight he is now 220. He is still having some hallucinations but better. He is down to 0.5 mg of Mirapex. He is in the process of retiring from [employer]. Parkinson's Medication Schedule - as of the start of the visit: Medications 5AM 930AM 2PM 630PM 11PM Rytary 195 4 3 3 3 Sinemet 50/200 CR 1 Mirapex 1 mg 1 0.5 0.5 rasagiline 1 mg 0.5 Parkinson's Motor Complications Medication benefit onset: 60 minutes (Comment: 1-2 hours) Medication duration: 4.5 hours Medication duration: (Comment: 4-4.5 hrs) Wearing off: yes Painful off-state dystonia: no Dyskinesia: no Prior Anti-Parkinson Therapies Carbidopa/Levodopa Carbidopa/Levodopa CR Carbidopa/Levodopa ER (Rytary) Pramipexole Questionnaires In addition, the following areas that may be affected by abnormal involuntary movements were evaluated: Daily activities Difficulties with eatin (none) Difficulties in dressing: Yes (slight) Difficulties with hygiene activities: Yes (slight) Difficulties with handwriting: Yes (slight) Difficulties with doing hobbies and other activities: Yes (slight) Difficulties turning in bed: 0 (none) Difficulties getting out of bed, car or chair: 0 (none) Tremors/Gait/Balance Shaking or tremors: 0 (none) Walking and balance problems: 0 (none) Number of falls in the Last Month: none Gait freezin (none) Autonomic/Pain Lightheadeness on standin (none) Urinary problems: 0 (none) Constipation problems: Yes (slight) Pain and other sensations: 0 (none) Speech/Swallowing Speech problems: Droolin (none) Chewing and swallowing problems: 0 (none) Sleep/Fatigue Sleep problems: Yes (slight) Daytime sleepiness: Yes (slight) Fatigue: Yes (slight) Mood/Behavior Depression: PHQ-9 Score: 5 usually representing mild (5-9) depression. Anxiety: Finally, the following table shows the patient's overall global physical and mental health using the PROMIS scale: PROMIS-10 Flowsheet Row Distance Health from 10/10/2022 in [facility] Distance Health from 07/26/2022 in [facility] Global Physical Health T Score 44.9 39.8 Global Mental Health T Score 41.1 33.8 0-10 Standard Pain Scale 4 3 *PROMIS-10 scoring scale: mean = 50, over 50 is above average, under 50 is below average In addition, the following Parkinson Lifestyle-associated features were evaluated: Conditions Prior to Dx: Depression: No Anxiety: No Melanoma: No Constipation: No Yelling: No Head Trauma: No Habits/exposures Prior to Dx Smoking: Caffeinated coffee (1-cup+): Caffeinated soda/tea (2 cups+): Alcohol (1 bottle/shot/glass+): Exercise (3x/wk+): Ibuprofen use (1x/wk+): Pesticides: Welding: In addition, the following non-motor symptoms and palliative concerns were evaluated: Sleep/Fatigue: REM sleep behavior disorder: no Restless Legs Syndrome: no Leg swelling: Impaired sense of smell: Cognition: Cognitive impairment: no Hallucinations and delusions: yes He may look at a coat rack and see a person there Apathy: no Impulse control disorder: Palliative Concerns: Caregiver burden: Spiritual concerns: Advanced directives on file: Palliative services: ALLERGIES No Known Allergies Current Outpatient Medications Medication Sig carbidopa-levodopa (RYTARY) 48.75-195 mg capsule Take 4 capsules at 5AM and 3 capsules at 930AM, 2PM and 630PM carbidopa-levodopa CR (SINEMET CR) 50-200 mg per tablet Take 1 tablet by mouth daily at bedtime. carbidopa-levodopa CR (SINEMET CR) 50-200 mg per tablet Take 1 tablet by mouth daily at bedtime. pramipexole (MIRAPEX) 1 mg tablet Take 0.5 tablets by mouth three times daily. rasagiline (AZILECT) 1 mg tab Take 1 tablet by mouth once daily. GLUTATHIONE ORAL Take 2 capsules by mouth. netarsudil (RHOPRESSA) 0.02 % 1 Drop daily at bedtime. bimatoprost (LUMIGAN) 0.01 % drop ophthalmic drops 1 Drop daily at bedtime. dorzolamide-timolol (COSOPT) 22.3-6.8 mg/mL ophthalmic solution 1 Drop twice daily. Stanton [id number] 500 mg-500 mcg -1 mg-12.5 mg cap Take by mouth. AOTNUAE-EMEVORMVX-YHCE ORAL Take 3 capsules by mouth once daily. alpha lipoic acid 600 mg tab Take 600 tablets by mouth twice daily. aspirin, enteric coated (ASPIRIN, ENTERIC COATED) 81 mg EC tablet Take 81 mg by mouth once daily. Lactobacillus acidophilus (PROBIOTIC ORAL) Take by mouth once daily. mirabegron (MYRBETRIQ) 50 mg Tb24 Take 50 mg by mouth once daily. tolterodine ER (DETROL LA) 4 mg 24 hr capsule Take 4 mg by mouth once daily. levothyroxine (SYNTHROID) 200 mcg tablet Take 200 mcg by mouth once daily. No current facility-administered medications for this visit. Objective General Neurological Examination: Neurological Exam Motor Moderate dyskinesia. . Pertinent Studies 10/06/2015 Vandana Scan FINDINGS: There is fairly symmetric activity within the head of the caudate bilaterally, however there is significantly diminished activity within the bilateral putamina; findings are compatible with a parkinsonian syndrome. IMPRESSION: Findings compatible with a parkinsonian syndrome. 11/19/2019 MRI Brain w w/o contrast Mild cerebral atrophy without significant white matter disease. No enhancement. Assessment and Plan: Assessment Mr. Escobar is a right-handed 72 year old year old male with Parkinson's disease with motor fluctuations and moderate dyskinesia. The following are the current problems noted and addressed during this visit: Parkinson's disease (hcc) Plan 10/10/2022 Visit: Parkinson's disease with Hallucinations - Stop AM Mirapex. Continue Rytary, rasagiline and Sinemet CR. If hallucinations worsen take Seroquel 25 mg, 1/2 tablet at bedtime. Updated Parkinson's Medication Schedule: Medications 5AM 930AM 2PM 630PM 11PM Rytary 195 4 3 3 3 Sinemet 50/200 CR 1 rasagiline 1 mg 1 Medical Decision Making: Problems: Moderate: 1+ chronic illnesses with change Risk: Moderate: Drug management Medical Decision Making Level: 4 - Moderate Thank you for allowing me to be part of the clinical care of this patient! I look forward to continued participation in the patient s care with you. Please do not hesitate to call with any questions. Sincerely, Dario Jones MD documented in this encounter [facility] 09-20-2022 Miscellaneous Notes Images from the original note were not included. Last OV 07/26/22 [facility] Next f/up 10/11/22 [facility] Patient phones requesting refills as follows: Requested Prescriptions Pending Prescriptions Disp Refills carbidopa-levodopa (RYTARY) 48.75-195 mg capsule 390 capsule 3 Sig: Take 4 capsules at 5AM and 3 capsules at 930AM, 2PM and 630PM Plan 07/26/2022 Visit: Updated Parkinson's Medication Schedule: Medications 5AM 930AM 2PM 630PM 11PM Rytary 195 4 3 3 3 documented in this encounter [facility] 07-31-2022 Miscellaneous Notes Last OV 07/26/22 [facility] Next OV 10/11/22 [facility] Requested Prescriptions Pending Prescriptions Disp Refills rasagiline (AZILECT) 1 mg tab 90 tablet 3 Sig: Take 1 tablet by mouth once daily. Please review and advise[place] [facility] [place] documented in this encounter [facility] 07-31-2022 Miscellaneous Notes Patient requests via [employer] refills as follows: When approved Rx escribed to [facility]. 07/26/22 FU w/Dr. Dario Jones Requested Prescriptions Pending Prescriptions Disp Refills carbidopa-levodopa CR (SINEMET CR) 50-200 mg per tablet 90 tablet 3 Sig: Take 1 tablet by mouth daily at bedtime. pramipexole (MIRAPEX) 1 mg tablet 135 tablet 3 Sig: Take 0.5 tablets by mouth three times daily. Please review and advise. [facility] in this encounter [facility] 07-31-2022 Miscellaneous Notes Patient requests via [employer] refills as follows: When approved Rx escribed to [facility]. 07/26/22 FU w/Dr. Dario Jones Requested Prescriptions Pending Prescriptions Disp Refills carbidopa-levodopa CR (SINEMET CR) 50-200 mg per tablet 90 tablet 3 Sig: Take 1 tablet by mouth daily at bedtime. pramipexole (MIRAPEX) 1 mg tablet 135 tablet 3 Sig: Take 0.5 tablets by mouth three times daily. Please review and advise. [place] [facility] [place] in this encounter [facility] 07-26-2022 History of Presen t illness Narrative [facility] - FOLLOW UP EVALUATION Yayo Lloyd MD [address] [facility] [address] I had the pleasure of seeing Mr. Escobar for follow up today. He is a 72 year old right-handed male with a history of Parkinson's disease since 2013. He is seen with his . We had a visit using: [employer] I received consent from the patient to perform the visit using this platform. Subjective Previous Plan-04/19/2022 Visit: Parkinson's disease with dyskinesia - No changes today. Could consider Amantadine in the future but will have to watch the medication balance carefully for hallucinations. Interval History: He was in the hospital for 24 days. He tripped over a cement block and broke his hip. He was admitted at [facility]. He had hit fixed but did not have a hip replacement. He has some pain from this now. He takes tylenol. Its worse at night. His Parkinson's disease has been OK through all this. They were good at giving him his medications on schedule. He had cut back the first dose of Rytary to 3 before the hospital but then had to increase back to 4/3/3/3 after the hospital. Parkinson's Medication Schedule - as of the start of the visit: Medications 5AM 930AM 2PM 630PM 11PM Rytary 195 4 3 3 3 Sinemet 50/200 CR 1 Mirapex 1 mg 1 0.5 0.5 rasagiline 1 mg 0.5 Parkinson's Motor Complications Medication benefit onset: 60 minutes (Comment: 1-2 hours) Medication duration: 4.5 hours Medication duration: (Comment: 4-4.5 hrs) Wearing off: yes Painful off-state dystonia: no Dyskinesia: no Prior Anti-Parkinson Therapies Carbidopa/Levodopa Carbidopa/Levodopa CR Carbidopa/Levodopa ER (Rytary) Pramipexole In addition, the following Parkinson-associated features were evaluated: Daily activities Difficulties with eatin (none) Difficulties in dressin (none) Difficulties with hygiene activities: 0 (none) Difficulties with handwritin (none) Difficulties with doing hobbies and other activities: 0 (none) Difficulties turning in bed: No Difficulties getting out of bed, car or chair: 0 (none) Tremors/Gait/Balance Shaking or tremors: 0 (none) Walking and balance problems: Yes: Number of falls in the Last Month: tripped over a cement block. broke hip Gait freezin (none) Autonomic/Pain Lightheadeness on standin (none) Urinary problems: 0 (none) Constipation problems: Yes (mild) Pain and other sensations: Yes (mild) Speech/Swallowing Speech problems: No Drooling: No Chewing and swallowing problems: 0 (none) Sleep/Fatigue Problems sleeping at night: Yes (mild) Daytime sleepiness: Yes (mild) Fatigue: Yes (mild) REM sleep behavior disorder: no Restless Legs Syndrome: no Mood/Behavior/Cognition Cognitive impairment: no No Data Recorded Hallucinations and delusions: yes He may look at a coat rack and see a person there Apathy: no Depression: PQH-9 = 2 usually representing no significant (0-4) depression. Anxiety: Yes Finally, the following table shows the patient's overall global physical and mental health using the PROMIS scale relative to the previous visit: PROMIS-10 Flowsheet Row Distance [facility] from 07/26/2022 in [facility] from 02/27/2022 in Neurology Global Physical Health T Score 39.8 42.3 Global Mental Health T Score 33.8 38.8 0-10 Standard Pain Scale 3 4 *PROMIS-10 scoring scale: mean = 50, over 50 is above average, under 50 is below average ALLERGIES No Known Allergies Current Outpatient Medications Medication Sig carbidopa-levodopa CR (SINEMET CR) 50-200 mg per tablet Take 1 tablet by mouth daily at bedtime. pramipexole (MIRAPEX) 1 mg tablet Take 0.5 tablets by mouth three times daily. carbidopa-levodopa CR (SINEMET CR) 50-200 mg per tablet Take 1 tablet by mouth daily at bedtime. pramipexole (MIRAPEX) 1 mg tablet Take 0.5 tablets by mouth three times daily. rasagiline (AZILECT) 1 mg tab Take 1 tablet by mouth once daily. carbidopa-levodopa (RYTARY) 48.75-195 mg capsule Take 4 capsules at 5AM and 930AM, 2PM and 3 capsules at and 630PM GLUTATHIONE ORAL Take 2 capsules by mouth. netarsudil (RHOPRESSA) 0.02 % 1 Drop daily at bedtime. bimatoprost (LUMIGAN) 0.01 % drop ophthalmic drops 1 Drop daily at bedtime. dorzolamide-timolol (COSOPT) 22.3-6.8 mg/mL ophthalmic solution 1 Drop twice daily. Stanton 4-[id number]-[id number]-C8-Fwpsornwqtj 500 mg-500 mcg -1 mg-12.5 mg cap Take by mouth. [id number]-XBDDBDWSC-SLGI ORAL Take 3 capsules by mouth once daily. alpha lipoic acid 600 mg tab Take 600 tablets by mouth twice daily. aspirin, enteric coated (ASPIRIN, ENTERIC COATED) 81 mg EC tablet Take 81 mg by mouth once daily. Lactobacillus acidophilus (PROBIOTIC ORAL) Take by mouth once daily. verapamil ER (VERELAN) 240 mg 24 hr capsule Take 240 mg by mouth once daily. mirabegron (MYRBETRIQ) 50 mg Tb24 Take 50 mg by mouth once daily. tolterodine ER (DETROL LA) 4 mg 24 hr capsule Take 4 mg by mouth once daily. levothyroxine (SYNTHROID) 200 mcg tablet Take 200 mcg by mouth once daily. No current facility-administered medications for this visit. Objective Neurological Exam Motor Moderate dyskinesia. Favors right him with walking. Pertinent Studies 10/06/2015 Vandana Scan FINDINGS: There is fairly symmetric activity within the head of the caudate bilaterally, however there is significantly diminished activity within the bilateral putamina; findings are compatible with a parkinsonian syndrome. IMPRESSION: Findings compatible with a parkinsonian syndrome. 11/19/2019 MRI Brain w w/o contrast Mild cerebral atrophy without significant white matter disease. No enhancement. Assessment and Plan: Assessment Mr. Escobar is a right-handed 72 year old male with Parkinson's disease with motor fluctuations and moderate dyskinesia. The following are the current problems noted and addressed during this visit: Parkinson's disease (hcc) (primary encounter diagnosis) Plan 07/26/2022 Visit: Parkinson's disease - Stable despite circumstances. Mild re-emergance of hallucinations - Will watch. Will reduce Mirapex now, and can start Seroquel if becomes worse. Updated Parkinson's Medication Schedule: Medications 5AM 930AM 2PM 630PM 11PM Rytary 195 4 3 3 3 Sinemet 50/200 CR 1 Mirapex 1 mg 1 0.5 0.5 rasagiline 1 mg 0.5 Return at or around: 10/26/22 Medical Decision Making: Problems: Moderate: 2+ stable chronic illnesses High: Chronic illness with severe change Risk: Moderate: Drug management Medical Decision Making Level: 4 - Moderate Thank you for allowing me to be part of the clinical care of this patient! I look forward to continued participation in the patient s care with you. Please do not hesitate to call with any questions. Sincerely, Dario Jones MD documented in this encounter [facility] 04-19-2022 Instructions Dario Jones MD - 04/19/2022 4:46 PM EDT It was a pleasure to see you today. We addressed the following diagnoses: Parkinson's disease (hcc) Levodopa-induced dyskinesia (primary encounter diagnosis) My recommendations are as follows: 04/19/2022 Visit: Parkinson's disease with dyskinesia - No changes today. Could consider Amantadine in the future but will have to watch the medication balance carefully for hallucinations. If there are any concerns before your next visit, please call or you can send a message through [employer]. You can also now schedule and select appointments through [employer]. Dario Jones MD documented in this encounter [facility] 04-19-2022 History of Presen t illness Narrative [facility] - FOLLOW UP EVALUATION Yayo Lloyd MD [address] [facility] [address] I had the pleasure of seeing Mr. Escobar for follow up today. He is a 71 year old right-handed male with a history of Parkinson's disease since 2013. He is seen alone. We had a visit using: [employer] I received consent from the patient to perform the visit using this platform. Subjective Previous Plan-01/11/2022 Visit: Parkinson's disease - No changes today. Episode of Hallucinations - Happened once, will observe. Let us know if recurring. Interval History He is doing better with less dyskinesia with the Rytary reduced to 4//01/31. He has not been on amantadine. He is happy with his level of dyskinesia. The hallucinations are gone. He has some visual distortions around lights that may be from glaucoma. Memory and thinking is fine. He has lost 52 lbs. He is having prostate surgery in 2 weeks. 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 He has kidney stones. Parkinson's Medication Schedule - as of the start of the visit: 5AM 930AM 2PM 630PM 11PM Rytary 195 4 3 3 3 Sinemet 50/200 CR 1 Mirapex 1 mg 1 0.5 0.5 rasagiline 1 mg 0.5 Parkinson's Motor Complications Medication benefit onset: 60 minutes (Comment: 1-2 hours) Medication duration: 4.5 hours Medication duration: (Comment: 4-4.5 hrs) Wearing off: yes Painful off-state dystonia: no Dyskinesia: no Prior Anti-Parkinson Therapies Carbidopa/Levodopa Carbidopa/Levodopa CR Carbidopa/Levodopa ER (Rytary) Pramipexole ALLERGIES No Known Allergies Current Outpatient Medications Medication Sig rasagiline (AZILECT) 1 mg tab Take 1 tablet by mouth once daily. carbidopa-levodopa (RYTARY) 48.75-195 mg capsule Take 4 capsules at 5AM and 930AM, 2PM and 3 capsules at and 630PM pramipexole (MIRAPEX) 1 mg tablet Take 1 tablet by mouth three times daily. carbidopa-levodopa CR (SINEMET CR) 50-200 mg per tablet Take 1 tablet by mouth daily at bedtime. GLUTATHIONE ORAL Take 2 capsules by mouth. netarsudil (RHOPRESSA) 0.02 % 1 Drop daily at bedtime. bimatoprost (LUMIGAN) 0.01 % drop ophthalmic drops 1 Drop daily at bedtime. dorzolamide-timolol (COSOPT) 22.3-6.8 mg/mL ophthalmic solution 1 Drop twice daily. Stanton 3-[id number]-[id number]-A9-Hgmsdwtkegw 500 mg-500 mcg -1 mg-12.5 mg cap Take by mouth. EJQTJIG-XYHHQEALD-RNIX ORAL Take 3 capsules by mouth once daily. alpha lipoic acid 600 mg tab Take 600 tablets by mouth twice daily. aspirin, enteric coated (ASPIRIN, ENTERIC COATED) 81 mg EC tablet Take 81 mg by mouth once daily. Lactobacillus acidophilus (PROBIOTIC ORAL) Take by mouth once daily. verapamil ER (VERELAN) 240 mg 24 hr capsule Take 240 mg by mouth once daily. mirabegron (MYRBETRIQ) 50 mg Tb24 Take 50 mg by mouth once daily. tolterodine ER (DETROL LA) 4 mg 24 hr capsule Take 4 mg by mouth once daily. levothyroxine (SYNTHROID) 200 mcg tablet Take 200 mcg by mouth once daily. No current facility-administered medications for this visit. Objective General Neurological Examination: Neurological Exam Motor He has moderate dyskinesia. There is minimal bradykinesia and hypophonia. Pertinent Studies 10/06/2015 Vandana Scan FINDINGS: There is fairly symmetric activity within the head of the caudate bilaterally, however there is significantly diminished activity within the bilateral putamina; findings are compatible with a parkinsonian syndrome. IMPRESSION: Findings compatible with a parkinsonian syndrome. 11/19/2019 MRI Brain w w/o contrast Mild cerebral atrophy without significant white matter disease. No enhancement. Assessment and Plan: Assessment Mr. Escobar is a right-handed 71 year old male with a history of Parkinson's disease since 2013. The following are the current problems noted and addressed during this visit: Parkinson's disease (hcc) Levodopa-induced dyskinesia (primary encounter diagnosis) Plan 04/19/2022 Visit: Parkinson's disease with dyskinesia - No changes today. Could consider Amantadine in the future but will have to watch the medication balance carefully for hallucinations. Updated Parkinson's Medication Schedule: 5AM 930AM 2PM 630PM 11PM Rytary 195 4 3 3 3 Sinemet 50/200 CR 1 Mirapex 1 mg 1 0.5 0.5 rasagiline 1 mg 0.5 Return at or around: 07/20/22 Medical Decision Making: Problems: Low: Stable chronic illness Risk: Moderate: Drug management Medical Decision Making Level: 3 - Low Thank you for allowing me to be part of the clinical care of this patient! I look forward to continued participation in the patient s care with you. Please do not hesitate to call with any questions. Sincerely, Dario Jones MD documented in this encounter [facility] 04-09-2022 Miscellaneous Notes Patient phones requesting refills as follows: When approved Rx escribed to [facility]. 02/27/22 [facility] w/Gale Koo PA-C Pending Prescriptions Disp Refills RASAGILINE 1 MG TABLET 90 tablet 3 Sig: Take 1 tablet by mouth once daily. TACOS: No Please review and advise. [facility] documented in this encounter [facility] 04-01-2022 Miscellaneous Notes Talked to him. Discussed reducing Rytary to 4/01/31 Spouse calls stating that patient is highly active on Rytary. He's the Energizer Bunny. He can't sit still and he's moving all the time and he can't control it . She says he's lost about 50 pounds and she wonders if now it's too much medication. The moving all the time started prior to losing weight but now it's gotten worse as he's lost weight. She says they have noticed at school when he walks down the hallway. She is asking if Rytary should go back to 3 instead of 4. Ph. [phone] Left a message to call back I spoke with Kan's who states he is currently takina 9a 2p 6p Rytary 195mg 4 4 4 3 Pramipexole 1 mg 1 0.5 0.5 rasagiline 1 mg 1 Sinemet CR 50-200 mg, 1 tab QHS He stopped the night time dose of pramipexole a while ago and he has a surge of energy in the afternoon/ evening. March 26, 2022 3:02 PM Have him eliminate the 11PM dose of Mirapex and see if that helps. calling to say that since change patient has not improved at all. He has so much energy in the evening and she believes this is why he is losing weight. She wants to know if there should be any changes to Rytary? Or other medications. Noted will see how he does with the medication change. Dario Jones MD I spoke with Mrs. Escobar to inform her to decrease Mirapex to 1/2 tab for each dose and she states Kan is currently taking Mirapex 1 tab at4:30a, 1/2 tab at 9a and 1/2 tab at 1p. Mrs. Escobar also states Kan has lost 50 lbs and does not have much of an appetite March 06, 2022 7:58 PM I would suggest reducing the Mirapex to 0.5 mg per dose. Dario Jones MD attempted to contact patient. did not leave voice mail. NI PHONE Name of caller : Kan Escobar Relationship to patient : Self If not self Will need patient permission to release results or disclose health information with called documented in fyi. Was permission obtained from patient ? Yes Patient identified by Name and Date of . ( Kan Escobar, 1950). Yes Reason for Call : Pt called to learn if Rytary can be decreased since he has too much energy and have had hallucinations? Number to return [phone] Okay to leave a message ? Yes Last office visit 02/27/22 with Gale Koo PA-C Next office visit 04/19/[address] Dario Jones Thank you calling [facility] [place]. You will receive a return call within 48 hours ( or 2 business days if close to the weekend). If you feel that this is an urgent issue and needs immediate attention, it is recommended that you contact your primary care provider office or proceed to your nearest Urgent Care Center of Emergency Room ED for evaluation/treatment. documented in this encounter [facility] 02-27-2022 Note HNO ID: [id number] Author: Gale Koo PA-C Service: ? Author Type: Physician Mounter Hand Type: Progress Notes Filed: 02/27/2022 1:52 PM Note Text: [facility] - VIRTUAL VISIT PCP: Yayo Lloyd MD I performed this clinical encounter by utilizing a real time telehealth video connection between my location and the patient's location. The patient's location was confirmed during the visit. I obtained verbal consent from the patient to perform this clinical encounter utilizing video and prepared the patient by answering any questions they had about the telehealth interaction. I had the pleasure of seeing Mr. Escobar for follow up today by virtual visit. As you know he is a 71 year old right-handed male with a history of parkinson's disease Interval History Since Last Visit: Louie was seen by Dr. Jones about a month ago, at that visit there were no medication changes warranted but he was told to monitor his hallucinations. Today he states that he has a great deal of anxiety, followed by rapid onset of feeling quite drained. He relates this to one instance of forgetting to take his first Sinemet dose before work and then feeling quite poorly needing to have the EMS take him to a local emergency room. His hallucinations have become almost nightly he has them in the evening and sees flashing lights and red-colored objects His medications are Rytary 195 4 tablets for the first 3 doses and 3 tablets as his last dose usually about 4 hours apart. He is taking a Sinemet CR 5200 at bedtime, his Mirapex 1 mg 1 tablet at five 1 tablet at 9:30 AM and then half of a tablet at bedtime. And daily rasagiline half a tablet. Allergies: ALLERGIES No Known Allergies Current Medications: Current Outpatient Medications Medication Sig - carbidopa-levodopa (RYTARY) 48.75-195 mg capsule Take 4 capsules at 5AM and 930AM, 2PM and 3 capsules at and 630PM - pramipexole (MIRAPEX) 1 mg tablet Take 1 tablet by mouth three times daily. - carbidopa-levodopa CR (SINEMET CR) 50-200 mg per tablet Take 1 tablet by mouth daily at bedtime. - rasagiline (AZILECT) 1 mg tab Take 1 tablet by mouth once daily. - GLUTATHIONE ORAL Take 2 capsules by mouth. - netarsudil (RHOPRESSA) 0.02 % 1 Drop daily at bedtime. - bimatoprost (LUMIGAN) 0.01 % drop ophthalmic drops 1 Drop daily at bedtime. - dorzolamide-timolol (COSOPT) 22.3-6.8 mg/mL ophthalmic solution 1 Drop twice daily. - Stanton [id number]-[id number]-D3-Ijqwbfbytke 500 mg-500 mcg -1 mg-12.5 mg cap Take by mouth. - SAOKPKQ-XZXDFMAAG-WZIT ORAL Take 3 capsules by mouth once daily. - alpha lipoic acid 600 mg tab Take 600 tablets by mouth twice daily. - aspirin, enteric coated (ASPIRIN, ENTERIC COATED) 81 mg EC tablet Take 81 mg by mouth once daily. - Lactobacillus acidophilus (PROBIOTIC ORAL) Take by mouth once daily. - verapamil ER (VERELAN) 240 mg 24 hr capsule Take 240 mg by mouth once daily. - mirabegron (MYRBETRIQ) 50 mg Tb24 Take 50 mg by mouth once daily. - tolterodine ER (DETROL LA) 4 mg 24 hr capsule Take 4 mg by mouth once daily. - levothyroxine (SYNTHROID) 200 mcg tablet Take 200 mcg by mouth once daily. No current facility-administered medications for this visit. Examination: Alert and oriented x3 Speech normal Significant dyskinesias Assessment and Plan: Mr. Escobar is a right-handed 71 year old male with idiopathic Parkinson's disease. He has developed dyskinesias since his last visit, his wearing off time usually is about 30 minutes before the next dose and his hallucinations have become a bit more frequent. He is equating his dyskinesias with increased anxiety. We discussed the difference between dyskinesias and feeling anxious, and to try to reduce the dyskinesias we will initially reduce the second dose of the Mirapex to just half of a tablet. This may also improve his hallucinations. He will send a [employer] message in a few days to let us know how he is doing. The following are the current problems noted and addressed during this visit: Parkinson's disease (hcc) (primary encounter diagnosis) Plan: 1. for the PD - reduce the second dose of Mirapex to 0.5 tabs 2. hallucinations - monitor for now 3. - 4. - Approximately 20 minutes was spent with the patient, of which more than 50% of the time was spent in counseling and developing a treatment paln The patient understands and agrees with the plan of care outlined. Gale Koo PA-C [facility] 01-30-2022 Miscellaneous Notes Noted and reviewed. Relatively normal MRI. PCP ordered. MRI report rec'd via fax from [facility]. Available to view in scanned documents. 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 Parkinson's disease (HCC) Paralysis agitans [facility] Diagnosis Parkinson's disease (HCC)- Primary Paralysis agitans Levodopa-induced dyskinesia Subacute 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 [facility] Diagnosis Parkinson's disease (HCC)- Primary Paralysis agitans Levodopa-induced dyskinesia Subacute 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 [facility] Diagnosis Parkinson's disease (HCC)- Primary Paralysis agitans [facility] Diagnosis Parkinson's disease (HCC)- Primary Paralysis agitans Obesity, Class I, BMI 30-34.9 Obesity, unspecified [facility] Diagnosis Levodopa-induced dyskinesia- Primary Subacute 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 Parkinson's disease Paralysis agitans [facility] Diagnosis Parkinson's disease without dyskinesia, with fluctuating manifestations- Primary Levodopa-induced dyskinesia Subacute 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 documented in this encounter [facility] Summary Purpose Family History No Family History Records FoundThere may be information available, but it has not been provided by the sender.No Family History Records FoundNo Family History Records FoundNo Family History Records Found Advance Directives No Advanced Directives Records FoundThere may be information available, but it has not been provided by the sender.No Advanced Directives Records FoundNo Advanced Directives Records FoundNo Advanced Directives Records Found Instructions Instruction Description Start Date Please follow-up with Primar y Care Physician or Accounting Software Specialist for treatment or adjustment of medication regarding elevated blood pressure.Patient advised to follow-up with Primary Care Physician for BMI management. Assessments There may be information available, but it has not been provided by the sender. Review of System There may be information available, but it has not been provided by the sender. Reason for Referral Specialty Diagnoses / Procedures Referred By Addy t Referred To Contact Diagnoses Parkinson's disease (HCC) Procedures PROVIDER ORDERED FOLLOW UP OFFICE/OUTPATIENT [facility] 60-74 MINUTES Dario Jones MD [address] [place] [address] Referral ID Status Reason Start Date Expiration Date Visits Requested Visits Authorized [id number] Pending Review PCP Requested Referral 04/19/2022 07/18/2022 1 1 Referral ID Status Reason Start Date Expiration Date Visits Requested Visits Authorized [id number] Pending Review PCP Requested Referral 07/26/2022 10/24/2022 1 1 Referral ID Status Reason Start Date Expiration Date Visits Requested Visits Authorized [id number] Pending Review PCP Requested Referral 12/09/2022 01/08/2023 1 1 Referral ID Status Reason Start Date Expiration Date Visits Requested Visits Authorized [id number] Pending Review PCP Requested Referral 01/08/2023 1 1 Referral ID Status Reason Start Date Expiration Date Visits Requested Visits Authorized [id number] Pending Review PCP Requested Referral 03/06/2023 06/04/2023 1 1 Specialty Diagnoses / Procedures Referred By Contac t Referred To Contact Magy Grimm MD [address] [place] [address] Referral ID Status Reason Start Date Expiration Date V isits Requested Visits Authorized [id number] Pending Review 1 1 Specialty Diagnoses / Procedures Referred By Contac t Referred To Contact Diagnoses Parkinson's disease (HCC) Procedures PROVIDER ORDERED FOLLOW UP OFFICE/OUTPATIENT [facility] 60-74 MINUTES Gale Koo PA-C [address] [place] [address] Referral ID Status Reason Start Date Expiration Date Visits Requested Visits Authorized [id number] Pending Review PCP Requested Referral 08/30/2023 07/30/2024 1 1 Specialty Diagnoses / Procedures Referred By Contac t Referred To Contact Diagnoses Parkinson's disease without dyskinesia, with fluctuating manifestations Procedures PROVIDER ORDERED FOLLOW UP OFFICE/OUTPATIENT [facility] 60-74 MINUTES Dario Jones MD [address] [place] [address] Referral ID Status Reason Start Date Expiration Date Visits Requested Visits Authorized [id number] Authorized PCP Requested Referral 01/13/2024 02/12/2024 1 1 Additional Source Comments (unrecognized sect ion and content) No Status Records FoundNo Status Records FoundNo Status Records FoundNo Status Records Found INFORMATION SOURCE (unrecogn ized section and content) DATE CREATED AUTHOR AUTHOR'S ORGANIZ ATION 03/01/2022 [facility] DATE CREATED AUTHOR AUTHOR'S ORGANIZ ATION 07/10/2023 [facility] DATE CREATED AUTHOR AUTHOR'S ORGANIZ ATION 11/27/2023 [facility] Source Comments (unrecognize d section and content) In the event this informatio n is protected by the Federal Confidentiality of Alcohol and Drug Abuse Patient Records regulations: The Federal rules restrict any use of the information to criminally investigate or prosecute any alcohol or drug abuse patient.[facility] Center[facility] the event this information is protected by the Federal Confidentiality of Alcohol and Drug Abuse Patient Records regulations: The Federal rules restrict any use of the information to criminally investigate or prosecute any alcohol or drug abuse patient.[facility] CenterIn the event this information is protected by the Federal Confidentiality of Alcohol and Drug Abuse Patient Records regulations: The Federal rules restrict any use of the information to criminally investigate or prosecute any alcohol or drug abuse patient.[facility] CenterIn the event this information is protected by the Federal Confidentiality of Alcohol and Drug Abuse Patient Records regulations: The Federal rules restrict any use of the information to criminally investigate or prosecute any alcohol or drug abuse patient.[facility] CenterIn the event this information is protected by the Federal Confidentiality of Alcohol and Drug Abuse Patient Records regulations: The Federal rules restrict any use of the information to criminally investigate or prosecute any alcohol or drug abuse patient.[facility] CenterIn the event this information is protected by the Federal Confidentiality of Alcohol and Drug Abuse Patient Records regulations: The Federal rules restrict any use of the information to criminally investigate or prosecute any alcohol or drug abuse patient.[facility] CenterIn the event this information is protected by the Federal Confidentiality of Alcohol and Drug Abuse Patient Records regulations: The Federal rules restrict any use of the information to criminally investigate or prosecute any alcohol or drug abuse patient.[facility] CenterIn the event this information is protected by the Federal Confidentiality of Alcohol and Drug Abuse Patient Records regulations: The Federal rules restrict any use of the information to criminally investigate or prosecute any alcohol or drug abuse patient.[facility] CenterIn the event this information is protected by the Federal Confidentiality of Alcohol and Drug Abuse Patient Records regulations: The Federal rules restrict any use of the information to criminally investigate or prosecute any alcohol or drug abuse patient.[facility] CenterIn the event this information is protected by the Federal Confidentiality of Alcohol and Drug Abuse Patient Records regulations: The Federal rules restrict any use of the information to criminally investigate or prosecute any alcohol or drug abuse patient.[facility] CenterIn the event this information is protected by the Federal Confidentiality of Alcohol and Drug Abuse Patient Records regulations: The Federal rules restrict any use of the information to criminally investigate or prosecute any alcohol or drug abuse patient.[facility] CenterIn the event this information is protected by the Federal Confidentiality of Alcohol and Drug Abuse Patient Records regulations: The Federal rules restrict any use of the information to criminally investigate or prosecute any alcohol or drug abuse patient.[facility] CenterIn the event this information is protected by the Federal Confidentiality of Alcohol and Drug Abuse Patient Records regulations: The Federal rules restrict any use of the information to criminally investigate or prosecute any alcohol or drug abuse patient.[facility] CenterIn the event this information is protected by the Federal Confidentiality of Alcohol and Drug Abuse Patient Records regulations: The Federal rules restrict any use of the information to criminally investigate or prosecute any alcohol or drug abuse patient.[facility] CenterIn the event this information is protected by the Federal Confidentiality of Alcohol and Drug Abuse Patient Records regulations: The Federal rules restrict any use of the information to criminally investigate or prosecute any alcohol or drug abuse patient.[facility] CenterIn the event this information is protected by the Federal Confidentiality of Alcohol and Drug Abuse Patient Records regulations: The Federal rules restrict any use of the information to criminally investigate or prosecute any alcohol or drug abuse patient.[facility] CenterIn the event this information is protected by the Federal Confidentiality of Alcohol and Drug Abuse Patient Records regulations: The Federal rules restrict any use of the information to criminally investigate or prosecute any alcohol or drug abuse patient.[facility] CenterIn the event this information is protected by the Federal Confidentiality of Alcohol and Drug Abuse Patient Records regulations: The Federal rules restrict any use of the information to criminally investigate or prosecute any alcohol or drug abuse patient.[facility] CenterIn the event this information is protected by the Federal Confidentiality of Alcohol and Drug Abuse Patient Records regulations: The Federal rules restrict any use of the information to criminally investigate or prosecute any alcohol or drug abuse patient.[facility] CenterIn the event this information is protected by the Federal Confidentiality of Alcohol and Drug Abuse Patient Records regulations: The Federal rules restrict any use of the information to criminally investigate or prosecute any alcohol or drug abuse patient.[facility] CenterIn the event this information is protected by the Federal Confidentiality of Alcohol and Drug Abuse Patient Records regulations: The Federal rules restrict any use of the information to criminally investigate or prosecute any alcohol or drug abuse patient.[facility] Reason for Visit (unrecogniz ed section and content) Specialty Diagnoses / Procedures Referred By Addy huitron Referred To Contact Neurology / [facility] Diagnoses Parkinsons Disease Procedures VIDEO SPEC MD Adán Crews Benjamin Lee, MD [address] [place] [address] Referral ID Status Reason Start Date Expiration Date Visits Re quested Visits Authorized [id number] Closed 07/26/2022 10/24/2022 1 1 Reason Comments Opened In Error Reason Comments Medication Question/Rytary Reason Onset Date Comments Refill Request 04/09/2022 Reason Onset Date Comments Refill Request 07/31/2022 Reason Onset Date Comments Refill Request 09/20/2022 Reason Comments Parkinson's Disease Specialty Diagnoses / Procedures Referred By Addy t Referred To Contact Diagnoses Parkinson's disease (HCC) Procedures PROVIDER ORDERED FOLLOW UP OFFICE/OUTPATIENT NEW [facility] 60-74 MINUTES Dario Jones MD [address] [place] [address] Referral ID Status Reason Start Date Expiration Date Visits Requested Visits Authorized [id number] Pending Review PCP Requested Referral 07/26/2022 10/24/2022 1 1 Reason Comments MRI Report Reason Comments Parkinson's Disease Specialty Diagnoses / Procedures Referred By Contac t Referred To Contact Diagnoses Parkinson's disease (HCC) Procedures PROVIDER ORDERED FOLLOW UP OFFICE/OUTPATIENT NEW HIGH MDM 60-74 MINUTES Dario Jones MD [address] [facility] [facility] [place] [address] Referral ID Status Reason Start Date Expiration Date Visits Requested Visits Authorized [id number] Pending Review PCP Requested Referral 12/09/2022 01/08/2023 1 1 Reason Onset Date Comments Refill Request 01/30/2023 Rytary Referral ID Status Reason Start Date Expiration Date V isits Requested Visits Authorized [id number] Closed PCP Requested Referral 10/10/2022 01/08/2023 1 1 Reason Comments Symptom Management Reason Onset Date Comments Refill Request 06/09/2023 Reason Comments Numbness Reason Comments Established Patient Reason Comments Established Patient Specialty Diagnoses / Procedures Referred By Contac t Referred To Contact Diagnoses Parkinson's disease Procedures PROVIDER ORDERED FOLLOW UP OFFICE/OUTPATIENT NEW HIGH MDM 60-74 MINUTES Gale Koo PA-C [address] [place] [address] Referral ID Status Reason Start Date Expiration Date Visits Requested Visits Authorized [id number] Pending Review PCP Requested Referral 08/30/2023 07/30/2024 1 1 Care Teams (unrecognized sec tion and content) Residence Counselor Relationship Specialty Start Date End Date Yayo Lloyd [address] [place], [place] [id number] PCP - General Family Practice 08/23/20 Residence Counselor Relationship Specialty Start Date End Date Yayo Lloyd [address] [place], [place] [id number] PCP - General Family Practice 08/23/20 Residence Counselor Relationship Specialty Start Date End Date Thalia Yayo Spears [address] [place] [address] PCP - General Family Practice 08/23/20 Residence Counselor Relationship Specialty Start Date End Date Thalia Yayo Spears [address] [place] [address] PCP - General Family Practice 08/23/20 Residence Counselor Relationship Specialty Start Date End Date Thalia Yayo Fazalabi [address] [place] [address] PCP - General Family Practice 08/23/20 Residence Counselor Relationship Specialty Start Date End Date Yayo Lloyd Edabi [address] [place] [address] PCP - General Family Practice 08/23/20 Residence Counselor Relationship Specialty Start Date End Date Yayo Lloyd Edabi [address] [place] [address] PCP - General Family Medicine 08/23/20 Residence Counselor Relationship Specialty Start Date End Date Yayo Lloyd Edabi [address] [place] [address] PCP - General Family Medicine 08/23/20 Residence Counselor Relationship Specialty Start Date End Date Yayo Lloyd [address] [place] [address] PCP - General Family Medicine 08/23/20 Residence Counselor Relationship Specialty Start Date End Date Yayo Lloyd Edabi [address] [place] [address] PCP - General Family Medicine 08/23/20 Residence Counselor Relationship Specialty Start Date End Date Yayo Lloyd [address] [place] [address] PCP - General Family Medicine 08/23/20 Residence Counselor Relationship Specialty Start Date End Date Yayo Lloyd [address] [place] [address] PCP - General Family Medicine 08/23/20 Residence Counselor Relationship Specialty Start Date End Date Yayo Lloyd [address] [place] [address] PCP - General Family Medicine 08/23/20 Residence Counselor Relationship Specialty Start Date End Date Yayo Lloyd MD [address] [place] [address] PCP - General Family Medicine 08/23/20 Residence Counselor Relationship Specialty Start Date End Date Yayo Lloyd MD [address] [place] [address] PCP - General Family Medicine 08/23/20 Residence Counselor Relationship Specialty Start Date End Date Yayo Lloyd MD [address] [place] [address] PCP - General Family Medicine 08/23/20 Residence Counselor Relationship Specialty Start Date End Date Yayo Lloyd MD [address] [place] [address] PCP - General Family Medicine 08/23/20 FOR RECORDS PERTAINING TO PATIENTS WHO ARE OR HAVE BEEN ENROLLED IN A CHEMICAL DEPENDENCY/SUBSTANCEABUSE PROGRAM, SOME INFORMATION MAY BE OMITTED. This clinical summary was aggregated from multiple sources. Caution should be exercised in using it in the provision of clinical care. This summary normalizes information from multiple sources, and as a consequence, information in this document may materially change the coding, format and clinical context of patient data. In addition, data may be omitted in some cases. CLINICAL DECISIONS SHOULD BE BASED ON THE PRIMARY CLINICAL RECORDS. [employer] [facility]. provides no warranty or guarantee of the accuracy or completeness of information in this document.
[2023-11-28 12:32] LABS: Absolute Lymphocyte Count 1.88 X10^3/uL (0.83-4.51); Absolute Neutrophil Count 4.6 X10^3/uL (2.0-7.7); Basophil# 0.04 X10^3/uL; Basophil% 0.6 % (0-1); Eosinophil# 0.08 X10^3/uL; Eosinophils% 1.1 % (0-5); Hematocrit 43.1 % (40-54); Hemoglobin 13.4 g/dL (13.0-16.5); Lymphocyte # 1.88 X10^3/ul (0.83-4.51); Lymphocyte % 26.5 % (19-41); Mean Corp Hgb Conc 31.1 g/dL (32-36); Mean Corpuscular Hgb 30.9 pg (27.0-32.0); Mean Corpuscular Volume 99.3 fL (80-94); Mean Platelet Vol. 9.2 fl (6.2-12.0); Monocyte# 0.53 X10^3/uL; Monocyte% 7.5 % (0-10); NRBC Flagged by Analyzer 0 % (0-5); Neutrophil # 4.55 X10^3/uL (2.7-7.7); Platelet Count 286 K/mm3 (150-450); RBC Distribution Width CV 13.8 % (11.6-14.6); RBC Distribution Width SD 50.4 fl (35.1-43.9); Red Blood Count 4.34 M/mm3 (4.6-6.2); White Blood Count 7.1 K/mm3 (4.4-11.0)
[2023-11-28 12:51] LABS: ALB/GLOB Ratio 1.2 RATIO (0.9-2.4); AST(SGOT) 13 U/L (15-37); Alanine Aminotransfer ALT/SGPT 13 U/L (16-61); Albumin, Serum 3.7 g/dL (3.2-5.0); Alkaline Phosphatase 74 U/L (45-117); Anion Gap 5 (5-15); BUN 16 mg/dL (7-18); BUN/Creat Ratio 18.1 RATIO (10-20); Calcium,Total 8.3 mg/dL (8.5-10.1); Chloride 106 mmol/L (98-107); Cholesterol 167 mg/dL (200); Creatinine, Serum 0.89 mg/dL (0.70-1.30); EST Glomerular Filtration Rate 90 mL/min (>60); Est Glom Filt Rate - Afr Amer 109 mL/min (>60); Ferritin 111 ng/mL (26-388); Globulin 3.2 g/dL (2.2-4.2); Glucose 77 mg/dL (74-106); High Density Lipoprotein 40 mg/dL; Iron 75 ug/dL (65-175); Iron Binding Capacity,Total 281 ug/dL (250-450); Magnesium 2.4 mg/dL (1.6-2.6); Potassium 4.1 mmol/L (3.5-5.1); Protein, Total 6.9 g/dL (6.4-8.2); Sodium Level 141 mmol/L (136-145); T4 Free Direct 1.45 ng/dL (0.76-1.46); Thyroid Stim Hormone (TSH) 1.45 uIU/mL (0.358-3.74); Triglycerides 231 mg/dL; Very Low Density Lipoprotein 46 mg/dL (5-40)
[2023-11-28 13:03] LABS: Hemoglobin A1c 5.2 % (3.8-5.6)
== END | disposition home or self-care (01) ==
LOC: MTLAB 09:35
PROVIDERS: PCP Family Medicine; Referring Provider Family Medicine; Visit Provider Family Medicine
DX: I10 Essential (primary) hypertension (principal); I48.91 Unspecified atrial fibrillation; E61.1 Iron deficiency; R73.09 Other abnormal glucose; E03.9 Hypothyroidism, unspecified
CPT/HCPCS: 36415; 80053; 80061; 82728; 83036; 83540; 83550; 83735; 84439; 84443; 85025

== ENCOUNTER → 2023-12-26 | Outpatient (CLI) | payer OTHER, SELFPAY ==
--- NOTE | 2023-12-26 10:07 | NM_ITS ---
CLINICAL: 73-year-old male with history of early satiety. SEMI-SOLID PHASE 99m Tc SULFUR COLLOID GASTRIC EMPTYING STUDY COMPARISON: None available FINDINGS: The patient was administered 1.0 mCi of 99m Tc sulfur colloid mixed with oatmeal and consumed per os. Image acquisitions in the anterior-posterior projections were obtained for 60 minutes. There is prompt visualization of the stomach. There is no gastroesophageal reflux identified. The T ? raw data emptying was calculated to be 30.13 minutes, (Normal: 12-56 minutes). NM/Gastric Emptying Study IMPRESSION: 1. NORMAL 99m Tc sulfur colloid semi-solid phase (oatmeal) gastric emptying imaging examination. A. There is normal and preserved semi-solid phase gastric emptying compared to normal controls. (Taylor et al, J Nucl Med Tech 38: 186, 2010). Electronically Signed: Sohan Marsh DO at 9:07 EST ,
--- OUTSIDE RECORDS SUMMARY | 2023-12-26 10:25 | XMS RPT_ITS | CCD ---
Author Name Unknown Address [address] [place] [address] Organization [facility] Care Team Providers Care 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 Name Role Phone ANDERS ESCOBAR Unavailable Unavailable ANDERS ESCOBAR Unavailable Unavailable ANDERS ESCOBAR Unavailable Unavailable Angella Solorio Unavailable Yayo Lloyd Primary Care Provider Yayo Lloyd Primary Care Provider Yayo Lloyd Primary Care Provider [phone] Yayo Lloyd Primary Care Provider [phone] Yayo Lloyd Primary Care Provider MADIHA CABA Attending Unavailable YAYO LLOYD Primary Care UnavailYayo Bolivar MD Primary Care Provider DARIO JONES Attending Unavailable DARIO JONES Referring Unavailable YAYO LLOYD Primary Care Unavailable YAYO LLOYD Primary Care Unavailable DARIO JONES Attending Unavailable YAYO LLOYD Primary Care Unavailable GALE KOO Attending Unavailable GALE KOO Referring Unavailable YAYO LLOYD Primary Care Unavailable GALE KOO Attending Unavailable DARIO JONES Referring Unavailable YAYO LLOYD Primary Care Unavailable DARIO JONES Attending Unavailable Allergies Allergy Classification Reported Allergen(s) Allergy Type Date of Onset Reaction(s) Facility (1 source) SHINGLES VACCINE; Translations: [SHINGLES VACCINE] food allergy 7 localized edema [facility] Work Phone: Medications [...] 81 MG TBEC 1 tablet daily ASPIRIN [id number] Patricia Rodriguez LPN Problems Active Problems Problem [...] 185.4 cm Dario Jones MD Work Phone: [facility] 03-06-2023 15:18-0400 Body weight 116.03 kg Dario Jones MD Work Phone: [facility] 03-06-2023 15:18-0400 SaO2% (BldA) [Mass fraction] 99 % Dario Jones MD Work Phone: [facility] NEGATED: Highlighted [id number] 10:51-0400 BMI (Body Mass Index) 38.4 kg/m2 [facility] Work Phone: NEGATED: Highlighted [id number] 10:51-0400 BP Diastolic 90 mm[Hg] [facility] Work Phone: NEGATED: Highlighted [id number] 10:51-0400 BP Systolic 148 mm[Hg] [facility] Work Phone: NEGATED: Highlighted [id number] 10:51-0400 BP Systolic 142 mm[Hg] [facility] Work Phone: NEGATED: Highlighted [id number] 10:51-0400 Height 185.42 cm [facility] Work Phone: NEGATED: Highlighted [id number] 10:51-0400 Height 185 cm [facility] Work Phone: NEGATED: Highlighted [id number] 10:51-0400 Pulse (Heart Rate) 60 /min [facility] Work Phone: NEGATED: Highlighted [id number] 10:51-0400 Weight 131.54 kg [facility] Work Phone: NEGATED: Highlighted [id number] 10:51-0400 Weight 132 kg [facility] Work Phone: Encounters Encounter Date Encounter Type Care Provider Facility Start: 11-14-2023 End: 11-14-2023 ambulatory Dario Jones MD Work Phone: [facility] Procedures Date Procedure Procedure Detail Performing Clinician Start: 07-20-2022 Adult depression scr eening assessment Dario Jones MD Work Phone: Start: 02-27-2022 Adult depression scr eening assessment Gale THOMASC Work Phone: Start: 07-05-2021 Adult depression scr eening assessment Mita Scott RN Start: 06-09-2018 End: 06-09-2018 Blood pressure outside of normal parameters - follow-up documented Angella Sexton UNDER PRESSER-ADHESIVE SPRAYER Work Phone: Start: 06-09-2018 End: 06-09-2018 BMI documented as above normal parameters - follow-up documented Angella Sexton UNDER PRESSER-ADHESIVE SPRAYER Work Phone: Start: 06-09-2018 End: 06-09-2018 Current medications documented Angella Carlie RADFORD-ADHESIVE SPRAYER Work Phone: Start: 06-09-2018 End: 06-09-2018 Pain assessment documented as negative - follow-up not required Angella SNOWDEN Work Phone: Start: 06-09-2018 End: 06-09-2018 Tobacco non-user Angella Sexton APRN-ADHESIVE SPRAYER Work Phone: Plan of Treatment Date Care Activity Detail Author Start: 06-15-2032 Urine microalbumin profile DTaP,Tdap,Td Vaccine (4 - Td or Tdap) [facility] Start: 08-01-2023 Covid-19 Vaccine () Covid-19 Vaccine () [facility] Start: 08-01-2023 Influenza vaccination [facility] Start: 07-20-2023 Adult depression screening assessment DEPRESSION SCREENING [facility] Start: 02-27-2023 Adult depression screening assessment DEPRESSION SCREENING [facility] Start: 02-20-2023 COVID-19 VACCINE (4 - Pfizer series) COVID-19 VACCINE (4 - Pfizer series) [facility] Start: 12-01-2022 ADVANCE DIRECTIVE DISCUSSION ADVANCE DIRECTIVE DISCUSSION [facility] Start: 12-01-2022 DEPRESSION ASSESSMENT DEPRESSION ASSESSMENT [facility] Start: 08-01-2022 Influenza vaccination INFLUENZA (#1) [facility] Start: 07-05-2022 Adult depression screening assessment DEPRESSION SCREENING [facility] Start: 05-20-2022 COVID-19 VACCINE (3 - Booster for Pfizer series) COVID-19 VACCINE (3 - Booster for Pfizer series) [facility] Start: 02-14-2022 COVID-19 VACCINE (3 - Booster for Pfizer series) COVID-19 VACCINE (3 - Booster for Pfizer series) [facility] Start: 12-01-2021 ADVANCE DIRECTIVE DISCUSSION ADVANCE DIRECTIVE DISCUSSION [facility] Start: 12-01-2021 DEPRESSION ASSESSMENT DEPRESSION ASSESSMENT [facility] Start: 06-09-2018 End: 06-09-2018 Radex spine lumbosacral minimum 4 views XR LUMBAR 4VWS FLEX/EX [facility] Work Phone: Start: 06-09-2018 End: 06-09-2018 Appointment Appointment [facility] Work Phone: Start: 2017 Pneumococcal Vaccine: 65+ (1 - PCV) Pneumococcal Vaccine: 65+ (1 - PCV) [facility] Start: 2017 PNEUMOCOCCAL: 65+ (1 - PCV) PNEUMOCOCCAL: 65+ (1 - PCV) [facility] Start: 2017 PNEUMOVAX AGE 65 AND OVER WITH 5YR LOOKBACK (#1) PNEUMOVAX AGE 65 AND OVER WITH 5YR LOOKBACK (#1) [facility] Start: 06-17-2015 Shingrix Vaccine (2 of 3) Shingrix Vaccine (2 of 3) [facility] Start: 2012 RSV Vaccine (1 - 1-dose 60+ series) RSV Vaccine (1 - 1-dose 60+ series) [facility] Start: 2002 SHINGRIX VACCINE (1 of 2) SHINGRIX VACCINE (1 of 2) [facility] Start: 1997 COLOGUARD (FIT-DNA) COLOGUARD (FIT-DNA) [facility] Start: 1997 Colonoscopy COLONOSCOPY [facility] Start: 1997 COLORECTAL CANCER SCREENING COLORECTAL CANCER SCREENING [facility] Start: [address] COLONOGRAPHY [facility] Start: 1997 DIABETES SCREEN DIABETES SCREEN [facility] Start: 1997 Diabetes Screening Diabetes Screening [facility] Start: 1997 FECAL OCCULT BLOOD FECAL OCCULT BLOOD [facility] Start: 1997 Screening for malignant neoplasm of colon [facility] Start: 1997 SIGMOIDOSCOPY SIGMOIDOSCOPY [facility] Start: 1987 Lipid 1996 panel - Serum or Plasma Lipid Screening [facility] Start: 1987 Lipid panel Lipid Screening [facility] Start: 1987 LIPID SCREEN LIPID SCREEN [facility] Start: 1971 Urine microalbumin profile [facility] Start: 1970 HEPATITIS C SCREENING HEPATITIS C SCREENING [facility] Start: 1970 Hepatitis C screening Hepatitis C Screening [facility] Patient Education \cps-sql1\CPS_ PtEducatio n\htn.pdf [facility]: [facility] Immunizations Immunization Date Immunization Notes Care Provider Rigoberto carriechandrakant 10-23-2022 influenza virus vaccine, unspecified formulation Gale Koo PA-C Work Phone: [facility] No information available. Kandy Flores AT [facility] Work Phone: Payers Date Payer Category Payer Unknown [id number] 2022 Unknown [id number] 2019 Unknown [employer] PPO [id number] 2019-Present [phone] [address] [place] [address] PPO [id number] 2019 Unknown [id number] Unknown [id number] Social History Date Type Detail Facility Start: 06-09-2018 End: 06-09-2018 Assertion Unknown if ever smoked [facility] Work Phone: Start: 09-26-2020 End: 03-06-2023 Tobacco smoking status NHIS Never smoked tobacco [facility] Start: 09-26-2020 End: 03-06-2023 Tobacco use and exposure Smokeless tobacco non-user [facility] Start: 09-28-2020 End: 03-06-2023 Alcohol intake Lifetime non-drinker (finding) [facility] Start: 09-26-2020 History SDOH Alcohol Frequency 1 [facility] Start: 1950 Sex Assigned At Male [facility] Start: 02-17-2022 End: 07-19-2022 Exposure to SARS-CoV-2 (event) Not sure [facility] Start: 03-06-2023 End: 07-09-2023 History of Social function [facility] Start: 03-06-2023 End: 07-09-2023 Tobacco use panel [facility] Adult Depression Screening Assessment 1 [facility] Start: 07-03-2021 Gender identity Identifies as male gender (finding) [facility] Start: 04-23-2021 Sexual orientation Heterosexual (brandi bettie) [facility] How often to you hav e a drink containing alcohol? Never [facility] NEGATED: Highlighted rowStart: 06-09-2018 End: 06-09-2018 Employment detail Never smoker [facility] Work Phone: Clinical Notes 01-30-2022 to 11-14-2023 Dario Jones MD - 11/14/2023 10:06 AM Gale Lyons PA-C - 09/02/2023 5:56 PM Gale Duron PA-C - 07/31/2023 3:07 PM EDTPatient InstructionsPatient Instructions Note Date & Type Note Facility 11-14-2023 Note HNO ID: [id number] Author: Dario Jones MD Service: ? Author Type: Physician Type: Progress Notes Filed: 11/14/2023 3:19 PM Note Text: [facility] - FOLLOW UP EVALUATION - VIRTUAL VISIT Yayo Lloyd MD, MD [facility] [address] [facility] [address] [facility] [address] Dear Yayo Lloyd MD, MD: I had the pleasure of seeing Mr. Escobar for follow-up today. As you know he is a 73 year old right-handed male with a history of Parkinson's disease since 2013. We had a visit using: [employer] I have communicated my name and active licensure. The patient's identity and physical location were verified at the time of this visit. Either the patient or their legal agency service representative has been informed of the risks [...] Take 137 mcg by mouth once daily. JBEXZFV-QBIFLIJLD-EXKD ORAL Take 3 capsules by mouth once [...] [facility] from 11/14/2023 in [facility] from 07/09/2023 in Neurology Global Physical Health T Score 44.9 -- Global Mental Health T Score 43.5 43.5 0-10 Standard Pain Scale 4 -- *PROMIS-10 scoring scale: mean = 50, over 50 (more content not included)... [facility] 11-14-2023 History of Presen t illness Narrative [facility] - FOLLOW UP EVALUATION - VIRTUAL VISIT Yayo Lloyd MD, MD [address] [facility] [address] Dear Yayo Lloyd MD, MD: I had the pleasure of seeing Mr. Escobar for follow-up today. As you know he is a 73 year old right-handed male with a history of Parkinson's disease since 2013. We had a visit using: [employer] I have communicated my name and active licensure. The patient's identity and physical location were verified at the time of this visit. Either the patient or their legal agency service representative has been informed of the risks [...] Take 137 mcg by mouth once daily. LDILMBF-CEJFKKYDR-MCPP ORAL Take 3 capsules by mouth once [...] [facility] from 11/14/2023 in [facility] from 07/09/2023 in Neurology Global [...] Dario Jones MD documented in this encounter [facility] 09-02-2023 Note HNO ID: [id number] Author: Gale Koo PA-C Service: ? Author Type: Physician Honest John Rocket Crew Member Type: Progress Notes Filed: 09/02/2023 6:04 PM [...] Take 137 mcg by mouth once daily. XNJJJJO-LTPZMPPWX-JQEM ORAL Take 3 capsules by mouth once [...] plan of care outlined. Gale Koo PA-C [facility] 09-02-2023 History of Presen t illness Narrative [...] Take 137 mcg by mouth once daily. ICFDKUP-JOHJGDKPF-GWXQ ORAL Take 3 capsules by mouth once [...] Gale Koo PA-C documented in this encounter [facility] 07-31-2023 Note HNO ID: [id number] Author: Gale Koo PA-C Service: ? Author Type: Physician Honest John Rocket Crew Member Type: Progress Notes Filed: 08/01/2023 3:03 PM [...] [facility] from 12/20/2022 in [facility] Global Physical Health T Score -- 47.7 [...] Take 137 mcg by mouth once daily. CLCPEAV-IYIYGIGCR-NZEB ORAL Take 3 capsules by mouth once [...] plan of care outlined. Gale Koo PA-C [facility] 07-31-2023 History of Presen t illness Narrative [...] [facility] from 12/20/2022 in [facility] Global Physical Health T Score -- 47.7 [...] Take 137 mcg by mouth once daily. MPTKNKH-ZDSVWFPIJ-YXKG ORAL Take 3 capsules by mouth once [...] Gale Koo PA-C documented in this encounter [facility] 07-24-2023 Miscellaneous Notes Message left for Mrs. [...] during these spells. Number to return call [phone] Ludy Escobar (Spouse) Okay to leave a message? Yes documented in this encounter [facility] 07-09-2023 Instructions Madiha Caba APRN.ERIK - 07/09/2023 [...] or you can send a message through [employer]. You can also now schedule and select appointments through [employer]. Madiha Caba APRN.ERIK documented in this encounter [facility] 07-09-2023 Note HNO ID: [id number] Author: Madiha Caba APRN.ERIK Service: ? Author Type: Nurse Practitioner Type: Progress Notes Filed: 07/09/2023 6:18 PM Note Text: [facility] - FOLLOW UP EVALUATION - VIRTUAL VISIT Yayo Lloyd [address] [facility] [address] [facility] [address] Dear Yayo Lloyd: I had the pleasure of seeing Mr. Escobar for follow-up today. As you know he is a 73 year old right-handed male with a history of Parkinson's disease since 2013. He is seen with his . We had a visit using: [employer] I have communicated my name and active licensure. The patient's identity and physical location were verified at the time of this visit. Either the patient or their legal agency service representative has been informed of the risks [...] Not drinking enough. Dyskinesas are bothersome on [id number] 3 capsules so he reduced to 3/2/2/2 [...] Take 137 mcg by mouth once daily. DFVGSFR-VINQGIWHY-MSBD ORAL Take 3 capsules by mouth once [...] [facility] from 12/20/2022 in [facility] Global Physical Health T Score -- 47.7 Global Mental Health T Score 43.5 43.5 0-10 Standard Pain Scale -- 5 *PROMIS-10 scoring scale: mean = 50, over 50 is above average, under 50 is below average Objective He is accompanied by his spouse. General: Awake, eva (more content not included)... [facility] 07-09-2023 History of Presen t illness Narrative [facility] - FOLLOW UP EVALUATION - VIRTUAL VISIT Yayo Lloyd [address] [facility] [facility] [address] [facility] [address] Dear Yayo Lloyd: I had the pleasure of seeing Mr. Escobar for follow-up today. As you know he is a 73 year old right-handed male with a history of Parkinson's disease since 2013. He is seen with his . We had a visit using: [employer] I have communicated my name and active licensure. The patient's identity and physical location were verified at the time of this visit. Either the patient or their legal agency service representative has been informed of the risks [...] Not drinking enough. Dyskinesas are bothersome on [id number] 3 capsules so he reduced to 3/2/2/2 [...] Take 137 mcg by mouth once daily. FEQKLKR-PRCNWYDXE-DZUR ORAL Take 3 capsules by mouth once [...] [facility] from 12/20/2022 in [facility] Global Physical Health T Score -- 47.7 [...] 1 mg 1 Level of service : [id number] ( 30-39 min). Time spent 35 min on the day of service, which included preparing to see the patient, fpsf-yd-lxgd patient care, completing clinical documentation, obtaining and/or [...] Madiha Caba APRN.ERIK documented in this encounter [facility] 06-09-2023 Miscellaneous Notes Patient's phones requesting 90 [...] 6p Please review and advise. [facility] documented in this encounter [facility] 04-30-2023 Miscellaneous Notes I spoke with Mrs. Escobar to clarify new Rytary dose times. Mrs. Escobar verbalizes good understanding. Kan will continue to take rasagiline once daily and Sinemet CR at 2200. Message left on for MrLoc & Mrs. Escobar to change time of Rytary doses for Kan to 6am, 10am, 2pm & 6pm per [...] symptoms. Would like to discuss. CALLBACK #: [phone] OK TO LEAVE MESSAGE: yes LAST FUV: March 2023 with II documented in this encounter [facility] 03-06-2023 Note HNO ID: [id number] Author: Dario Jones MD Service: ? Author Type: Physician Type: Progress Notes Filed: 03/06/2023 9:52 PM Note Text: [facility] - FOLLOW UP EVALUATION MD Sandra [address] [facility] [address] Dear Yayo Lloyd MD: I had the pleasure of seeing Mr. Escobar for follow-up today. As you know he is a 72 year old right-handed male with a history of Parkinson's disease since 2013. He is seen with his . 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 Interval History: He is having more problems [...] Row [facility] from 12/20/2022 in [facility] from 10/10/2022 in [facility] Global Physical Health T Score 47.7 44.9 [...] daily. Pt takes 1 tab at 4:30am.) XNTIYPC-FRFSUHIJH-QJCD ORAL Take 3 capsules by mouth once [...] bedtime. (Patient not taking: Reported on 03/04/2023) Lengby 0-K35-OXW86-IU-K4-Kphbcmgfyfk 500 mg-500 mcg -1 mg-12.5 mg cap Take by mouth. (Patient not taking: Reported on 03/04/2023) No current facility-administered medications for this visit. Objective Vital Signs: Ht 185.4 cm (6' 1 ) Wt 116 kg (255 lb 12.8 oz) SpO2 99% BMI 33.75 kg/m? Orthostatic V (more content not included)... [facility] 03-06-2023 Instructions Dario Jones MD - 03/06/2023 [...] or you can send a message through [employer]. You can also now schedule and select appointments through [employer]. Dario Jones MD documented in this encounter [facility] 03-06-2023 History of Presen t illness Narrative [facility] - FOLLOW UP EVALUATION MD Sandra Silva [address] [facility] [address] [facility] [address] Dear Yayo Lloyd MD: I had the pleasure of seeing Mr. Escobar for follow-up today. As you know he is a 72 year old right-handed male with a history of Parkinson's disease since 2013. He is seen with his . 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 Interval History: He is having more problems [...] Row [facility] from 12/20/2022 in [facility] from 10/10/2022 in [facility] Global Physical Health T Score 47.7 44.9 [...] daily. Pt takes 1 tab at 4:30am.) EDVIIZV-TDEMGMWKN-RFDT ORAL Take 3 capsules by mouth once [...] bedtime. (Patient not taking: Reported on 03/04/2023) Lengby 0-N81-CNV95-BP-P5-Ujwxxpqgfve 500 mg-500 mcg -1 mg-12.5 mg cap [...] Dario Jones MD documented in this encounter [facility] 01-30-2023 Miscellaneous Notes Pt's requesting refill as [...] electronically to the patient's pharmacy. Ashley Ortiz, Pairer Substandard III documented in this encounter [facility] 12-20-2022 Note HNO ID: [id number] Author: Dario Jones MD Service: ? Author Type: Physician Type: Progress Notes Filed: 12/20/2022 2:27 PM Note Text: [facility] - FOLLOW UP EVALUATION - VIRTUAL VISIT Yayo Lloyd MD [address] [address] Dear Yayo Lloyd MD: I had the pleasure of seeing Mr. Escobar for follow-up today. As you know he is a 72 year old right-handed male with a history of Parkinson's disease since 2013. He is seen with his . We had a visit using: Pro[employer] I received consent from the patient to [...] mg/mL ophthalmic solution 1 Drop twice daily. Lengby 4-B79-MVF38-CM-J7-Ptzxwekkvzp 500 mg-500 mcg -1 mg-12.5 mg cap Take by mouth. TXZHJYK-KZMANTOAY-JKUJ ORAL Take 3 capsules by mouth once [...] [facility] from 12/20/2022 in [facility] from 10/10/2022 in [facility] Global Physical Health T Score 47.7 44.9 Global Mental Health T Score 43.5 41.1 0-10 Standard Pain Scale 5 4 * (more content not included)... [facility] 12-20-2022 History of Presen t illness Narrative [facility] - FOLLOW UP EVALUATION - VIRTUAL VISIT Yayo Lloyd MD [address] [facility] [address] Dear Yayo Lloyd MD: I had the pleasure of seeing Mr. Escobar for follow-up today. As you know he is a 72 year old right-handed male with a history of Parkinson's disease since 2013. He is seen with his . We had a visit using: [employer] I received consent from the patient to [...] mg/mL ophthalmic solution 1 Drop twice daily. Lengby 5-J74-BAV00-BE-M5-Actqmmemhul 500 mg-500 mcg -1 mg-12.5 mg cap Take by mouth. 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 Updated Movement Disorder Medication Schedule: Medications 5AM [...] Dario Jones MD documented in this encounter [facility] 10-10-2022 History of Presen t illness Narrative [facility] - FOLLOW UP EVALUATION Yayo Lloyd MD [address] [facility] [address] I had the pleasure of seeing Mr. Escobar for follow up today. He is a 72 year old right-handed male with a history of Parkinson's disease since 2013. He is seen alone. We had a visit using: [employer] I received consent from the patient to [...] is in the process of retiring from [employer]. Parkinson's Medication Schedule - as of [...] Row [facility] from 10/10/2022 in [facility] from 07/26/2022 in [facility] Global Physical Health T Score 44.9 39.8 [...] mg/mL ophthalmic solution 1 Drop twice daily. Lengby 7-G76-PGI96-IK-L2-Mjfdcjgvrur 500 mg-500 mcg -1 mg-12.5 mg cap Take by mouth. IPWFLRJ-ONBLZTYXN-EIUY ORAL Take 3 capsules by mouth once [...] Dario Jones MD documented in this encounter [facility] 09-20-2022 Miscellaneous Notes Images from the original [...] 3 3 3 documented in this encounter [facility] 07-31-2022 Miscellaneous Notes Last OV 07/26/22 BLW Next OV 10/11/22 BLW Requested Prescriptions Pending Prescriptions Disp Refills rasagiline (AZILECT) 1 mg tab 90 tablet 3 Sig: Take 1 tablet by mouth once daily. Please review and advise. [facility] [place] Lema documented in this encounter [facility] 07-31-2022 Miscellaneous Notes Patient requests via Consult A Doctorhart refills as follows: When approved Rx escribed to [facility]. 07/26/22 FU w/Dr. Dario Jones Requested Prescriptions Pending Prescriptions Disp Refills carbidopa-levodopa CR (SINEMET CR) 50-200 mg per tablet 90 tablet 3 Sig: Take 1 tablet by mouth daily at bedtime. pramipexole (MIRAPEX) 1 mg tablet 135 tablet 3 Sig: Take 0.5 tablets by mouth three times daily. Please review and advise. [facility] documented in this encounter [facility] 07-31-2022 Miscellaneous Notes Patient requests via Consult A Doctorhart refills as follows: When approved Rx escribed to [facility]. 07/26/22 FU w/Dr. Dario Jones Requested Prescriptions Pending Prescriptions Disp Refills carbidopa-levodopa CR (SINEMET CR) 50-200 mg per tablet 90 tablet 3 Sig: Take 1 tablet by mouth daily at bedtime. pramipexole (MIRAPEX) 1 mg tablet 135 tablet 3 Sig: Take 0.5 tablets by mouth three times daily. Please review and advise. [facility] documented in this encounter [facility] 07-26-2022 History of Presen t illness Narrative [facility] - FOLLOW UP EVALUATION Yayo Lloyd MD [address] [facility] [id number] I had the pleasure of seeing Mr. Escobar for follow up today. He is a 72 year old right-handed male with a history of Parkinson's disease since 2013. He is seen with his . We had a visit using: [employer] I received consent from the patient to [...] broke his hip. He was admitted at [facility]. He had hit fixed but did [...] [facility] from 07/26/2022 in Neurological [facility] from 02/27/2022 in Neurology Global [...] mg/mL ophthalmic solution 1 Drop twice daily. Lengby 7-Z25-UFT37-KN-J4-Znubiycorlx 500 mg-500 mcg -1 mg-12.5 mg cap Take by mouth. ZOPRTJS-XTCAWEPUR-VNHY ORAL Take 3 capsules by mouth once [...] Dario Jones MD documented in this encounter [facility] 04-19-2022 Instructions Dario Jones MD - 04/19/2022 [...] or you can send a message through [employer]. You can also now schedule and select appointments through [employer]. Dario Jones MD documented in this encounter [facility] 04-19-2022 History of Presen t illness Narrative [facility] - FOLLOW UP EVALUATION Yayo Lloyd MD [address] [facility] [id number] I had the pleasure of seeing Mr. Escobar for follow up today. He is a 71 year old right-handed male with a history of Parkinson's disease since 2013. He is seen alone. We had a visit using: Progn[employer] I received consent from the patient to [...] mg/mL ophthalmic solution 1 Drop twice daily. Lengby 3-N45-[id number]-AP-M1-Jyhkehijedc 500 mg-500 mcg -1 mg-12.5 mg cap Take by mouth. AKSMIFS-WUTLUQTIA-HQJS ORAL Take 3 capsules by mouth once [...] Dario Jones MD documented in this encounter [facility] 04-09-2022 Miscellaneous Notes Patient phones requesting refills as follows: When approved Rx escribed to [facility]. 02/27/22 SHAUN w/Gale Koo PA-C Pending Prescriptions Disp Refills RASAGILINE 1 MG TABLET 90 tablet 3 Sig: Take 1 tablet by mouth once daily. TACOS: No Please review and advise. [facility] documented in this encounter [facility] 04-01-2022 Miscellaneous Notes Talked to him. Discussed [...] back to 3 instead of 4. Ph. [phone] Left a message to call back I [...] and have had hallucinations? Number to return [phone] Okay to leave a message ? Yes Last office visit 02/27/22 with Gale Koo PA-C Next office visit 04/19/[address] Dario Jones Thank you calling [facility] [place]. You will receive a return call within 48 hours ( or 2 business days if close to the weekend). If you feel that this is an urgent issue and needs immediate attention, it is recommended that you contact your primary care provider office or proceed to your nearest Urgent Care Center of Emergency Room ED for evaluation/treatment. documented in this encounter [facility] 02-27-2022 Note HNO ID: [id number] Author: Gale Koo PA-C Service: ? Author Type: Physician [employer]est [employer] Member Type: Progress Notes Filed: 02/27/2022 1:52 PM [...] ophthalmic solution 1 Drop twice daily. - Lengby 3-K55-WQF95-IJ-L7-Zvadmqowykz 500 mg-500 mcg -1 mg-12.5 mg cap Take by mouth. - OSIKQEH-OAXZARERU-ENWA ORAL Take 3 capsules by mouth once [...] improve his hallucinations. He will send a [employer] message in a few days to let [...] plan of care outlined. Gale Koo PA-C [facility] 01-30-2022 Miscellaneous Notes Noted and reviewed. Relatively normal MRI. PCP ordered. MRI report rec'd via fax from [facility]. Available to view in scanned documents. 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 Parkinson's disease (HCC) Paralysis agitans [facility] Diagnosis Parkinson's disease (HCC)- Primary Paralysis agitans Levodopa-induced dyskinesia Subacute 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 [facility] Diagnosis Parkinson's disease (HCC)- Primary Paralysis agitans Levodopa-induced dyskinesia Subacute 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 [facility] Diagnosis Parkinson's disease (HCC)- Primary Paralysis agitans [facility] Diagnosis Parkinson's disease (HCC)- Primary Paralysis agitans Obesity, Class I, BMI 30-34.9 Obesity, unspecified [facility] Diagnosis Levodopa-induced dyskinesia- Primary Subacute 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 Parkinson's disease Paralysis agitans [facility] Diagnosis Parkinson's disease without dyskinesia, with fluctuating manifestations- Primary Levodopa-induced dyskinesia Subacute 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 60-74 MINUTES Dario Jones MD [address] [place] [address] Referral ID Status Reason Start Date Expiration Date Visits Requested Visits Authorized [id number] Pending Review PCP Requested Referral 04/19/2022 07/18/2022 1 1 Referral ID Status Reason Start Date Expiration Date Visits Requested Visits Authorized [id number] Pending Review PCP Requested Referral 07/26/2022 10/24/2022 1 1 Referral ID Status Reason Start Date Expiration Date Visits Requested Visits Authorized [id number] Pending Review PCP Requested Referral 12/09/2022 01/08/2023 1 1 Referral ID Status Reason Start Date Expiration Date Visits Requested Visits Authorized [id number] Pending Review PCP Requested Referral 01/08/2023 1 1 Referral ID Status Reason Start Date Expiration Date Visits Requested Visits Authorized [id number] Pending Review PCP Requested Referral 03/06/2023 06/04/2023 1 1 Specialty Diagnoses / Procedures Referred By Contac t Referred To Contact Magy Grimm MD [address] [place] [address] Referral ID Status Reason Start Date Expiration Date V isits Requested Visits Authorized [id number] Pending Review 1 1 Specialty Diagnoses / Procedures Referred By Contac t Referred To Contact Diagnoses Parkinson's disease (HCC) Procedures PROVIDER ORDERED FOLLOW UP OFFICE/OUTPATIENT [facility] 60-74 MINUTES Gale Koo PA-C [address] [place] [address] Referral ID Status Reason Start Date Expiration Date Visits Requested Visits Authorized [id number] Pending Review PCP Requested Referral 08/30/2023 07/30/2024 1 1 Specialty Diagnoses / Procedures Referred By Contac t Referred To Contact Diagnoses Parkinson's disease without dyskinesia, with fluctuating manifestations Procedures PROVIDER ORDERED FOLLOW UP OFFICE/OUTPATIENT [facility] 60-74 MINUTES Dario Jones MD [address] [place] [address] Referral ID Status Reason Start Date Expiration Date Visits Requested Visits Authorized [id number] Authorized PCP Requested Referral 01/13/2024 02/12/2024 1 1 Additional Source Comments (unrecognized sect ion and content) No Status Records FoundNo Status Records FoundNo Status Records FoundNo Status Records Found INFORMATION SOURCE (unrecogn ized section and content) DATE CREATED AUTHOR AUTHOR'S ORGANIZ ATION 03/01/2022 [facility] DATE CREATED AUTHOR AUTHOR'S ORGANIZ ATION 07/10/2023 [facility] DATE CREATED AUTHOR AUTHOR'S ORGANIZ ATION 12/09/2023 [facility] Source Comments (unrecognize d section and content) In the event this informatio n is protected by the Federal Confidentiality of Alcohol and Drug Abuse Patient Records regulations: The Federal rules restrict any use of the information to criminally investigate or prosecute any alcohol or drug abuse patient.[facility] the event this information is protected by the Federal Confidentiality of Alcohol and Drug Abuse Patient Records regulations: The Federal rules restrict any use of the information to criminally investigate or prosecute any alcohol or drug abuse patient.[facility] the event this information is protected by the Federal Confidentiality of Alcohol and Drug Abuse Patient Records regulations: The Federal rules restrict any use of the information to criminally investigate or prosecute any alcohol or drug abuse patient.[facility] the event this information is protected by the Federal Confidentiality of Alcohol and Drug Abuse Patient Records regulations: The Federal rules restrict any use of the information to criminally investigate or prosecute any alcohol or drug abuse patient.[facility] the event this information is protected by the Federal Confidentiality of Alcohol and Drug Abuse Patient Records regulations: The Federal rules restrict any use of the information to criminally investigate or prosecute any alcohol or drug abuse patient.[facility] the event this information is protected by the Federal Confidentiality of Alcohol and Drug Abuse Patient Records regulations: The Federal rules restrict any use of the information to criminally investigate or prosecute any alcohol or drug abuse patient.[facility] the event this information is protected by the Federal Confidentiality of Alcohol and Drug Abuse Patient Records regulations: The Federal rules restrict any use of the information to criminally investigate or prosecute any alcohol or drug abuse patient.[facility] the event this information is protected by the Federal Confidentiality of Alcohol and Drug Abuse Patient Records regulations: The Federal rules restrict any use of the information to criminally investigate or prosecute any alcohol or drug abuse patient.[facility] the event this information is protected by the Federal Confidentiality of Alcohol and Drug Abuse Patient Records regulations: The Federal rules restrict any use of the information to criminally investigate or prosecute any alcohol or drug abuse patient.[facility] the event this information is protected by the Federal Confidentiality of Alcohol and Drug Abuse Patient Records regulations: The Federal rules restrict any use of the information to criminally investigate or prosecute any alcohol or drug abuse patient.[facility] the event this information is protected by the Federal Confidentiality of Alcohol and Drug Abuse Patient Records regulations: The Federal rules restrict any use of the information to criminally investigate or prosecute any alcohol or drug abuse patient.[facility] the event this information is protected by the Federal Confidentiality of Alcohol and Drug Abuse Patient Records regulations: The Federal rules restrict any use of the information to criminally investigate or prosecute any alcohol or drug abuse patient.[facility] the event this information is protected by the Federal Confidentiality of Alcohol and Drug Abuse Patient Records regulations: The Federal rules restrict any use of the information to criminally investigate or prosecute any alcohol or drug abuse patient.[facility] Hospital[facility] the event this information is protected by the Federal Confidentiality of Alcohol and Drug Abuse Patient Records regulations: The Federal rules restrict any use of the information to criminally investigate or prosecute any alcohol or drug abuse patient.[facility] Hospital[facility] the event this information is protected by the Federal Confidentiality of Alcohol and Drug Abuse Patient Records regulations: The Federal rules restrict any use of the information to criminally investigate or prosecute any alcohol or drug abuse patient.[facility] the event this information is protected by the Federal Confidentiality of Alcohol and Drug Abuse Patient Records regulations: The Federal rules restrict any use of the information to criminally investigate or prosecute any alcohol or drug abuse patient.[facility] Hospital[facility] the event this information is protected by the Federal Confidentiality of Alcohol and Drug Abuse Patient Records regulations: The Federal rules restrict any use of the information to criminally investigate or prosecute any alcohol or drug abuse patient.[facility] the event this information is protected by the Federal Confidentiality of Alcohol and Drug Abuse Patient Records regulations: The Federal rules restrict any use of the information to criminally investigate or prosecute any alcohol or drug abuse patient.[facility] Hospital[facility] the event this information is protected by the Federal Confidentiality of Alcohol and Drug Abuse Patient Records regulations: The Federal rules restrict any use of the information to criminally investigate or prosecute any alcohol or drug abuse patient.[facility] the event this information is protected by the Federal Confidentiality of Alcohol and Drug Abuse Patient Records regulations: The Federal rules restrict any use of the information to criminally investigate or prosecute any alcohol or drug abuse patient.[facility] Hospital[facility] the event this information is protected by the Federal Confidentiality of Alcohol and Drug Abuse Patient Records regulations: The Federal rules restrict any use of the information to criminally investigate or prosecute any alcohol or drug abuse patient.[facility] Reason for Visit (unrecogniz ed section and content) Specialty Diagnoses / Procedures Referred By Addy huitron Referred To Contact Neurology / NEUROLOGICAL SABIANIST Diagnoses Parkinsons Disease Procedures VIDEO SPEC MD Adán Cerws Benjamin Lee, MD [address] [place] [address] Referral ID Status Reason Start Date Expiration Date Visits Re quested Visits Authorized [id number] Closed 07/26/2022 10/24/2022 1 1 Reason Comments Opened In Error Reason Comments Medication Question/Rytary Reason Onset Date Comments Refill Request 04/09/2022 Reason Onset Date Comments Refill Request 07/31/2022 Reason Onset Date Comments Refill Request 09/20/2022 Reason Comments Parkinson's Disease Specialty Diagnoses / Procedures Referred By Addy t Referred To Contact Diagnoses Parkinson's disease (HCC) Procedures PROVIDER ORDERED FOLLOW UP OFFICE/OUTPATIENT [facility] 60-74 MINUTES Dario Jones MD [address] [place] [address] Referral ID Status Reason Start Date Expiration Date Visits Requested Visits Authorized [id number] Pending Review PCP Requested Referral 07/26/2022 10/24/2022 1 1 Reason Comments MRI Report Reason Comments Parkinson's Disease Specialty Diagnoses / Procedures Referred By Contac t Referred To Contact Diagnoses Parkinson's disease (HCC) Procedures PROVIDER ORDERED FOLLOW UP OFFICE/OUTPATIENT [facility] 60-74 MINUTES Dario Jones MD [address] [address] Referral ID Status Reason Start Date Expiration Date Visits Requested Visits Authorized [id number] Pending Review PCP Requested Referral 12/09/2022 01/08/2023 1 1 Reason Onset Date Comments Refill Request 01/30/2023 Rytary Referral ID Status Reason Start Date Expiration Date V isits Requested Visits Authorized [id number] Closed PCP Requested Referral 10/10/2022 01/08/2023 1 1 Reason Comments Symptom Management Reason Onset Date Comments Refill Request 06/09/2023 Reason Comments Numbness Reason Comments Established Patient Reason Comments Established Patient Specialty Diagnoses / Procedures Referred By Contac t Referred To Contact Diagnoses Parkinson's disease Procedures PROVIDER ORDERED FOLLOW UP OFFICE/OUTPATIENT [facility] 60-74 MINUTES Gale Koo PA-C [address] [place] [address] Referral ID Status Reason Start Date Expiration Date Visits Requested Visits Authorized [id number] Pending Review PCP Requested Referral 08/30/2023 07/30/2024 1 1 Care Teams (unrecognized sec tion and content) 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 Relationship Specialty Start Date End Date Yayo Lloyd [address] [place], [place] [address] PCP - General Family Practice 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 Relationship Specialty Start Date End Date Yayo Lloyd [address] [place], [place] [id number] PCP - General Family Practice 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 Relationship Specialty Start Date End Date Thalia Yayo Spears [address] [place] [address] PCP - General Family Practice 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 Relationship Specialty Start Date End Date Thalia Yayo Spears [address] [place] [address] PCP - General Family Practice 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 Relationship Specialty Start Date End Date Thalia Yayo Fazalabi [address] [place] [address] PCP - General Family Practice 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 Relationship Specialty Start Date End Date Yayo Lloyd Edabi [address] [place] [address] PCP - General Family Practice 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 Relationship Specialty Start Date End Date Yayo Lloyd Edabi [address] [place] [address] PCP - General Family Medicine 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 Relationship Specialty Start Date End Date Yayo Lloyd Edabi [address] [place] [address] PCP - General Family Medicine 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 Relationship Specialty Start Date End Date Yayo Lloyd [address] [place] [address] PCP - General Family Medicine 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 Relationship Specialty Start Date End Date Yayo Lloyd Edabi [address] [place] [address] PCP - General Family Medicine 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 Relationship Specialty Start Date End Date Yayo Lloyd [address] [place] [address] PCP - General Family Medicine 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 Relationship Specialty Start Date End Date Yayo Lloyd [address] [place] [address] PCP - General Family Medicine 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 Relationship Specialty Start Date End Date Yayo Lloyd [address] [place] [address] PCP - General Family Medicine 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 Relationship Specialty Start Date End Date Yayo Lloyd MD [address] [place] [address] PCP - General Family Medicine 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 [employer] [facility]. provides no warranty or guarantee of the accuracy or completeness of information in this document.
== END | disposition home or self-care (01) ==
LOC: NM 10:04
PROVIDERS: PCP Family Medicine; Referring Provider Family Medicine; Visit Provider Family Medicine
DX: R68.81 Early satiety (principal)
CPT/HCPCS: 78264; A9541

== ENCOUNTER → 2024-01-19 | Outpatient (CLI) | payer OTHER, SELFPAY ==
--- OUTSIDE RECORDS SUMMARY | 2024-01-19 14:13 | XMS RPT_ITS | CCD ---
Author Name Unknown Address [address] [place] [address] Organization [facility] Care Team Providers Care Household Personal Assistant Name Role Phone ANDERS ESCOBAR Unavailable Unavailable ANDERS ESCOBAR Unavailable Unavailable ANDERS ESCOBAR Unavailable Unavailable Angella Solorio Unavailable Yayo Lloyd Primary Care Provider [phone] Yayo Lloyd Primary Care Provider [phone] Yayo Lloyd Primary Care Provider [phone] Yayo Lloyd Primary Care Provider [phone] Yayo Lloyd Primary Care Provider [phone] MADIHA CABA Attending Unavailable YAYO LLOYD Primary Care UnavailYayo Bolivar MD Primary Care Provider YAYO LLOYD Primary Care Unavailable DARIO JONES Attending Unavailable YAYO LLOYD Primary Care Unavailable GALE KOO Referring Unavailable GALE KOO Attending Unavailable YAYO LLOYD Primary Care Unavailable GALE KOO Attending Unavailable YAYO LLOYD Primary Care Unavailable DARIO JONES Referring Unavailable DARIO JONES Attending Unavailable Allergies Allergy Classification Reported Allergen(s) Allergy Type Date of Onset Reaction(s) Facility (1 source) SHINGLES VACCINE; Translations: [SHINGLES VACCINE] food allergy [address] [facility] Work Phone: Medications Current Medications Medication Drug Class(es) Dates Sig (Normalized) Sig (Original) amantadine hydrochloride 100 mg oral capsule (2 sources) Influenza A M2 Protein Inhibitor Start: 11-14-2023 End: 11-13-2024 take 1 capsule by mouth once daily amantadine HCl (SYMMETREL) 100 mg capsule Take 1 capsule by mouth once daily. 30 capsule 11 11/14/2023 11/13/2024 Active Completed/Discontinued Medications Medication Drug Class(es) Dates Sig (Normalized) Sig (Original) amiodarone hydrochloride 200 mg oral tablet (10 sources) Antiarrhythmic Start: 01-20-2023 amiodarone (PACERONE) 200 mg tablet apixaban 5 mg oral tablet (10 sources) Factor Xa Inhibitor Start: 01-25-2023 ELIQUIS 5 mg tab(s) aspirin (13 sources) Nonsteroidal Anti-inflammatory Drug Start: 06-02-2018 ADULT ASPIRIN EC LOW STRENGTH 81 MG TBEC 1 tablet daily ASPIRIN [id number] Patricia Rodriguez LPN Problems Active Problems Problem Classification Problem Date Documented Date Episodic/Chronic Cardiac dysrhythmias (3 sources) Atrial fibrillation; Translations: [Unspecified atrial fibrillation] Onset: 11-14-2023 11-14-2023 Chronic Other acquired deformities (1 source) Spondylolisthesis; Translations: [Spondylolisthesis, lumbar region] Onset: 05-06-2017 05-06-2017 Chronic Other connective tissue disease (1 source) Arthrodesis status; Translations: [Arthrodesis status] Onset: 06-09-2018 06-09-2018 Episodic Other hereditary and degenerative nervous system conditions (5 sources) Drug-induced dyskinesia; Translations: [Drug induced subacute dyskinesia] Episodic Other nutritional; endocrine; and metabolic disorders (6 sources) Obese class I; Translations: [Obesity, unspecified] [...] 185.4 cm Dario Jones MD Work Phone: [facility] 03-06-2023 15:18-0400 Body weight 116.03 kg Dario Jones MD Work Phone: [facility] 03-06-2023 15:18-0400 SaO2% (BldA) [Mass fraction] 99 % Dario Jones MD Work Phone: [facility] NEGATED: Highlighted [id number] 10:51-0400 BMI (Body Mass Index) 38.4 kg/m2 [facility] Work Phone: NEGATED: Highlighted [id number] 10:51-0400 BP Diastolic 90 mm[Hg] [facility] Work Phone: NEGATED: Highlighted [id number] 10:51-0400 BP Systolic 148 mm[Hg] [facility] Work Phone: NEGATED: Highlighted [id number] 10:51-0400 BP Systolic 142 mm[Hg] [facility] Work Phone: NEGATED: Highlighted [id number] 10:51-0400 Height 185.42 cm [facility] Work Phone: NEGATED: Highlighted [id number] 10:51-0400 Height 185 cm [facility] Work Phone: NEGATED: Highlighted [id number] 10:51-0400 Pulse (Heart Rate) 60 /min [facility] Work Phone: NEGATED: Highlighted [id number] 10:51-0400 Weight 131.54 kg [facility] Work Phone: NEGATED: Highlighted [id number] 10:51-0400 Weight 132 kg [facility] Work Phone: Encounters Encounter Date Encounter Type Care Provider Facility Start: 01-16-2024 End: 01-16-2024 ambulatory Dario Jones MD Work Phone: [facility] Procedures Date Procedure Procedure Detail Performing Clinician Start: 07-20-2022 Adult depression scr eening assessment Dario Jones MD Work Phone: Start: 02-27-2022 Adult depression scr eening assessment Gale THOMASC Work Phone: Start: 07-05-2021 Adult depression scr eening assessment Mita Scott RN Start: 06-09-2018 End: 06-09-2018 Blood pressure outside of normal parameters - follow-up documented Angella Sexton PAYROLL MANAGER-[employer]UMENT [employer] Work Phone: Start: 06-09-2018 End: 06-09-2018 BMI documented as above normal parameters - follow-up documented Angella Sexton PAYROLL MANAGER-[employer] Work Phone: Start: 06-09-2018 End: 06-09-2018 Current medications documented Angella Sexton PAYROLL MANAGER-[employer]UMENT [employer] Work Phone: Start: 06-09-2018 End: 06-09-2018 Pain assessment documented as negative - follow-up not required Angella Carlie PAYROLL MANAGER-[employer]UMENT [employer] Work Phone: Start: 06-09-2018 End: 06-09-2018 Tobacco non-user Angella Nicolasadanielbud PAYROLL MANAGER-[employer] IN[employer]UMENT [employer]KER Work Phone: Plan of Treatment Date Care Activity Detail Author Start: 06-15-2032 Urine microalbumin profile DTaP,Tdap,Td Vaccine (4 - Td or Tdap) [facility] Start: 12-01-2023 Advance Directive Discussion Advance Directive Discussion [facility] Start: 12-01-2023 Depression Assessment Depression Assessment [facility] Start: 08-01-2023 Covid-19 Vaccine () Covid-19 Vaccine () [facility] Start: 08-01-2023 Influenza vaccination [facility] Start: 07-20-2023 Adult depression screening assessment DEPRESSION SCREENING [facility] Start: 02-27-2023 Adult depression screening assessment DEPRESSION SCREENING [facility] Start: 02-20-2023 COVID-19 VACCINE (4 - Pfizer series) COVID-19 VACCINE (4 - Pfizer series) [facility] Start: 12-01-2022 ADVANCE DIRECTIVE DISCUSSION ADVANCE DIRECTIVE DISCUSSION [facility] Start: 12-01-2022 DEPRESSION ASSESSMENT DEPRESSION ASSESSMENT [facility] Start: 08-01-2022 Influenza vaccination INFLUENZA (#1) [facility] Start: 07-05-2022 Adult depression screening assessment DEPRESSION SCREENING [facility] Start: 05-20-2022 COVID-19 VACCINE (3 - Booster for Pfizer series) COVID-19 VACCINE (3 - Booster for Pfizer series) [facility] Start: 02-14-2022 COVID-19 VACCINE (3 - Booster for Pfizer series) COVID-19 VACCINE (3 - Booster for Pfizer series) [facility] Start: 12-01-2021 ADVANCE DIRECTIVE DISCUSSION ADVANCE DIRECTIVE DISCUSSION [facility] Start: 12-01-2021 DEPRESSION ASSESSMENT DEPRESSION ASSESSMENT [facility] Start: 06-09-2018 End: 06-09-2018 Radex spine lumbosacral minimum 4 views XR LUMBAR 4VWS FLEX/EX [facility] Work Phone: Start: 06-09-2018 End: 06-09-2018 Appointment Appointment [facility] Work Phone: Start: 2017 Pneumococcal Vaccine: 65+ (1 - PCV) Pneumococcal Vaccine: 65+ (1 - PCV) [facility] Start: 2017 PNEUMOCOCCAL: 65+ (1 - PCV) PNEUMOCOCCAL: 65+ (1 - PCV) [facility] Start: 2017 PNEUMOVAX AGE 65 AND OVER WITH 5YR LOOKBACK (#1) PNEUMOVAX AGE 65 AND OVER WITH 5YR LOOKBACK (#1) [facility] Start: 06-17-2015 Shingrix Vaccine (2 of 3) Shingrix Vaccine (2 of 3) [facility] Start: 2012 RSV Vaccine (1 - 1-dose 60+ series) RSV Vaccine (1 - 1-dose 60+ series) [facility] Start: 2002 SHINGRIX VACCINE (1 of 2) SHINGRIX VACCINE (1 of 2) [facility] Start: 1997 COLOGUARD (FIT-DNA) COLOGUARD (FIT-DNA) [facility] Start: 1997 Colonoscopy COLONOSCOPY [facility] Start: 1997 COLORECTAL CANCER SCREENING COLORECTAL CANCER SCREENING [facility] Start: [address] COLONOGRAPHY [facility] Start: 1997 DIABETES SCREEN DIABETES SCREEN [facility] Start: 1997 Diabetes Screening Diabetes Screening [facility] Start: 1997 FECAL OCCULT BLOOD FECAL OCCULT BLOOD [facility] Start: 1997 Screening for malignant neoplasm of colon [facility] Start: 1997 SIGMOIDOSCOPY SIGMOIDOSCOPY [facility] Start: 1987 Lipid 1996 panel - Serum or Plasma Lipid Screening [facility] Start: 1987 Lipid panel Lipid Screening [facility] Start: 1987 LIPID SCREEN LIPID SCREEN [facility] Start: 1971 Urine microalbumin profile [facility] Start: 1970 HEPATITIS C SCREENING HEPATITIS C SCREENING [facility] Start: 1970 Hepatitis C screening Hepatitis C Screening [facility] Patient Education \cps-sql1\CPS_ PtEducatio n\htn.pdf [facility] Immunizations Immunization Date Immunization Notes Care Provider Rigoebrto fontenot 10-23-2022 influenza virus vaccine, unspecified formulation Gale Koo PA-C Work Phone: [facility] No information available. Kandy Flores AT [facility] Work Phone: Payers Date Payer Category Payer Unknown [id number] 2022 Unknown [id number] 2019 Unknown [employer] PPO [id number] 2019-Present [phone] [address] [place] [address] PPO [id number] 2019 Unknown [id number] 2017 Medicare MEDICARE MEDICAR E A [id number] 2017-Present [phone] [address] [place] [address] Medicare [id number] Unknown [id number] Social History Date Type Detail Facility Start: 06-09-2018 End: 06-09-2018 Assertion Unknown if ever smoked [facility] Work Phone: Start: 09-26-2020 End: 03-06-2023 Tobacco smoking status NHIS Never smoked tobacco [facility] Start: 09-26-2020 End: 03-06-2023 Tobacco use and exposure Smokeless tobacco non-user [facility] Start: 09-28-2020 End: 03-06-2023 Alcohol intake Lifetime non-drinker (finding) [facility] Start: 09-26-2020 History SDOH Alcohol Frequency 1 [facility] Start: 1950 Sex Assigned At Male C [facility] Start: 02-17-2022 End: 07-19-2022 Exposure to SARS-CoV-2 (event) Not sure [facility] Start: 03-06-2023 End: 07-09-2023 History of Social function [facility] Start: 03-06-2023 End: 07-09-2023 Tobacco use panel [facility] Adult Depression Screening Assessment 1 [facility] Start: 07-03-2021 Gender identity Identifies as male gender (finding) [facility] Start: 04-23-2021 Sexual orientation Heterosexual (fin ding) [facility] How often to you hav e a drink containing alcohol? Never [facility] NEGATED: Highlighted rowStart: 06-09-2018 End: 06-09-2018 Employment detail Never smoker [facility] Work Phone: Clinical Notes 01-30-2022 to 11-14-2023 Dario Jones MD - 11/14/2023 10:06 AM Gale Lyons PA-C - 09/02/2023 5:56 PM Gale Duron PA-C - 07/31/2023 3:07 PM EDTPatient InstructionsPatient Instructions Note Date & Type Note Facility 11-14-2023 Note HNO ID: [id number] Author: Dario Jones MD Service: ? Author Type: Physician Type: Progress Notes Filed: 11/14/2023 3:19 PM Note Text: [facility] - FOLLOW UP EVALUATION - VIRTUAL VISIT Yayo Lloyd MD, MD Sandra [facility] [address] [facility] [address] Dear Yayo Lloyd MD, MD: I had the pleasure of seeing Mr. Escobar for follow-up today. As you know he is a 73 year old right-handed male with a history of Parkinson's disease since 2013. We had a visit using: [employer] I have communicated my name and active licensure. The patient's identity and physical location were verified at the time of this visit. Either the patient or their legal retail service representative has been informed of the [...] Take 137 mcg by mouth once daily. [id number] ORAL Take 3 capsules by mouth once [...] Row [facility] from 11/14/2023 in [facility] from 07/09/2023 in Neurology Global Physical Health T Score 44.9 -- Global Mental Health T Score 43.5 43.5 0-10 Standard Pain Scale 4 -- *PROMIS-10 scoring scale: mean = 50, over 50 (more content not included)... [facility] 11-14-2023 History of Presen t illness Narrative [facility] - FOLLOW UP EVALUATION - VIRTUAL VISIT Yayo Lloyd MD, MD [address] [facility] [address] Dear Yayo Lloyd MD, MD: I had the pleasure of seeing Mr. Escobar for follow-up today. As you know he is a 73 year old right-handed male with a history of Parkinson's disease since 2013. We had a visit using: [employer] I have communicated my name and active licensure. The patient's identity and physical location were verified at the time of this visit. Either the patient or their legal retail service representative has been informed of the [...] Take 137 mcg by mouth once daily. [id number]-GGTH ORAL Take 3 capsules by mouth once [...] Row [facility] from 11/14/2023 in [facility] Distance [facility] from 07/09/2023 in Neurology Global [...] Exercise: Last PT Date: Last OT Date: Last ST Date: Exercises Regularly: Objective Neurological Exam Motor [...] Dario Jones MD documented in this encounter [facility] 09-02-2023 Note HNO ID: [id number] Author: Gale Koo PA-C Service: ? Author Type: Physician Shiatsu Therapist Type: Progress Notes Filed: 09/02/2023 6:04 PM [...] Take 137 mcg by mouth once daily. [id number] ORAL Take 3 capsules by mouth once [...] plan of care outlined. Gale Koo PA-C [facility] 09-02-2023 History of Presen t [...] Take 137 mcg by mouth once daily. [id number]-CMCTKYHSQ-KFKP ORAL Take 3 capsules by mouth once [...] Gale Koo PA-C documented in this encounter [facility] 07-31-2023 Note HNO ID: [id number] Author: Gale Koo PA-C Service: ? Author Type: Physician Shiatsu Therapist Type: Progress Notes Filed: 08/01/2023 3:03 PM [...] Neurology [facility] from 12/20/2022 in [facility] Global Physical Health T Score -- 47.7 [...] Take 137 mcg by mouth once daily. [id number]-OCEU ORAL Take 3 capsules by mouth once [...] plan of care outlined. Gale Koo PA-C [facility] 07-31-2023 History of Presen t [...] Neurology [facility] from 12/20/2022 in [facility] Global Physical Health T Score -- 47.7 [...] Take 137 mcg by mouth once daily. [id number]-[id number]-GFBH ORAL Take 3 capsules by mouth once [...] Gale Koo PA-C documented in this encounter [facility] 07-24-2023 Miscellaneous Notes Message left [...] during these spells. Number to return call [phone] Ludy Escobar (Spouse) Okay to leave a message? Yes documented in this encounter [facility] 07-09-2023 Instructions Madiha Caba APRN.ERIK [...] or you can send a message through [employer]. You can also now schedule and select appointments through [employer]. Madiha Caba APRN.[employer]UMENT [employer] documented in this encounter [facility] 07-09-2023 Note HNO ID: [id number] Author: Madiha Caba APRN.[employer] Service: ? Author Type: Nurse Practitioner Type: Progress Notes Filed: 07/09/2023 6:18 PM Note Text: [facility] - FOLLOW UP EVALUATION - VIRTUAL VISIT Yayo Lloyd [address] [facility] [address] Dear Yayo Lloyd: I had the pleasure of seeing Mr. Escobar for follow-up today. As you know he is a 73 year old right-handed male with a history of Parkinson's disease since 2013. He is seen with his . We had a visit using: [employer] I have communicated my name and active licensure. The patient's identity and physical location were verified at the time of this visit. Either the patient or their legal retail service representative has been informed of the [...] Not drinking enough. Dyskinesas are bothersome on [id number] 3 capsules so he reduced to 3/2/2/2 [...] Take 137 mcg by mouth once daily. COPWABL-DVDFVBWVD-TQTF ORAL Take 3 capsules by mouth once [...] Neurology [facility] from 12/20/2022 in [facility] Global Physical Health T Score -- 47.7 Global Mental Health T Score 43.5 43.5 0-10 Standard Pain Scale -- 5 *PROMIS-10 scoring scale: mean = 50, over 50 is above average, under 50 is below average Objective He is accompanied by his spouse. General: Awake, eva (more content not included)... [facility] 07-09-2023 History of Presen t illness Narrative [facility] - FOLLOW UP EVALUATION - VIRTUAL VISIT Yayo Lloyd [address] [facility] [address] Dear Yayo Lloyd: I had the pleasure of seeing Mr. Escobar for follow-up today. As you know he is a 73 year old right-handed male with a history of Parkinson's disease since 2013. He is seen with his . We had a visit using: [employer] I have communicated my name and active licensure. The patient's identity and physical location were verified at the time of this visit. Either the patient or their legal retail service representative has been informed of the [...] Not drinking enough. Dyskinesas are bothersome on [id number] 3 capsules so he reduced to 3/2/2/2 [...] Take 137 mcg by mouth once daily. [id number]-JZBTDJVEH-NPGN ORAL Take 3 capsules by mouth once [...] Neurology [facility] from 12/20/2022 in [facility] Global Physical Health T Score -- 47.7 [...] exam Medication Off/On/Naiive ON Time of UPDRS 0901 Time of Last Medication 0600 Last Medication [...] 1 mg 1 Level of service : 28034 ( 30-39 min). Time spent 35 min on the day of service, which included preparing to see the patient, avgr-lh-roxi patient care, completing clinical documentation, obtaining and/or [...] Madiha Caba APRN.ERIK documented in this encounter [facility] 07-04-2023 Miscellaneous Notes RN called to follow up on prior auth. Rytary 48.75-195mg approved indefinitely on 06/18. [employer] is sending over the approval notification via fax. Patient pharmacy was already notified. Gissell Montemayor RN RN completed and faxed [employer] PA request for Rytary via [employer]. Kan Escobar ([place]: [id number] Status: Sent to plan today Next Steps: The plan will fax you a determination, typically within 1 to 5 business days. Drug: Rytary 48.75-195MG er capsules Form: [employer] Prior Authorization Request Form Follow Up: Prior Authorization for [employer] Members phone [facility] requesting approval fax to be sent to them when received (f) [phone] Prior Authorization for Medications Requested by (MyChart, Pharmacy, Patient Call, Fax) : Fax Pharmacy Name: [facility] Phone # : [phone] Name of Medication : Rytary Dose : 48.75-195mg If renewal, auth date expiration: Prescribing Provider: Adán Last OV: March 2023 with Adán Insurance Provider : [employer] Is insurance card scanned in, including Rx info? Rx ID number: [id number] Rx BIN: Rx PCN: Rx Grp: [id number] Insurance CoverMyMeds [place]: E-PA? No documented in this encounter [facility] 06-09-2023 Miscellaneous Notes Patient's phones [...] at 6p Please review and advise. Little Michelle' documented in this encounter [facility] 04-30-2023 Miscellaneous Notes I spoke with Mrs. Escobar to clarify new Rytary dose times. Mrs. Escobar verbalizes good understanding. Kan will continue to take rasagiline once daily and Sinemet CR at 2200. Message left on VM for & Mrs. Escobar to change time of [...] symptoms. Would like to discuss. CALLBACK #: [phone] OK TO LEAVE MESSAGE: yes LAST FUV: March 2023 with II documented in this encounter [facility] 03-06-2023 Note HNO ID: [id number] Author: Dario Jones MD Service: ? Author Type: Physician Type: Progress Notes Filed: 03/06/2023 9:52 PM Note Text: [facility] - FOLLOW UP EVALUATION Yayo Lloyd MD [address] [facility] [address] [facility] [address] Dear Yayo Lloyd MD: I had the pleasure of seeing Mr. Escobar for follow-up today. As you know he is a 72 year old right-handed male with a history of Parkinson's disease since 2013. He is seen with his . 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 Interval History: He is having more problems [...] Row Distance Health from 12/20/2022 in [facility] Distance [facility] from 10/10/2022 in [facility] Global Physical Health T Score 47.7 44.9 [...] daily. Pt takes 1 tab at 4:30am.) [id number]-[id number]-RDBC ORAL Take 3 capsules by mouth once [...] bedtime. (Patient not taking: Reported on 03/04/2023) Talmo [id number]-Hcoylthgiby 500 mg-500 mcg -1 mg-12.5 mg cap Take by mouth. (Patient not taking: Reported on 03/04/2023) No current facility-administered medications for this visit. Objective Vital Signs: Ht 185.4 cm (6' 1 ) Wt 116 kg (255 lb 12.8 oz) SpO2 99% BMI 33.75 kg/m? Orthostatic V (more content not included)... [facility] 03-06-2023 Instructions Dario Jones MD [...] or you can send a message through [employer]. You can also now schedule and select appointments through [employer]. Dario Jones MD documented in this encounter [facility] 03-06-2023 History of Presen t illness Narrative [facility] - FOLLOW UP EVALUATION Yayo Lloyd MD [address] [facility] [address] Dear Yayo Lloyd MD: I had the pleasure of seeing Mr. Escobar for follow-up today. As you know he is a 72 year old right-handed male with a history of Parkinson's disease since 2013. He is seen with his . 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 Interval History: He is having more problems [...] Row Distance Health from 12/20/2022 in [facility] Distance Health from 10/10/2022 in [facility] Global Physical Health T Score 47.7 44.9 [...] daily. Pt takes 1 tab at 4:30am.) [id number]-AETDLXNNY-YFUV ORAL Take 3 capsules by mouth once [...] bedtime. (Patient not taking: Reported on 03/04/2023) Talmo [id number]-[id number]-Boarmhjrpyc 500 mg-500 mcg -1 mg-12.5 mg cap [...] Dario Jones MD documented in this encounter [facility] 01-30-2023 Miscellaneous Notes Pt's requesting [...] electronically to the patient's pharmacy. Ashley Ortiz, Director Of Sustainability III documented in this encounter [facility] 12-20-2022 History of Presen t illness Narrative [facility] - FOLLOW UP EVALUATION - VIRTUAL VISIT Yayo Lloyd MD [address] [facility] [address] Dear Yayo Lloyd MD: I had the pleasure of seeing Mr. Escobar for follow-up today. As you know he is a 72 year old right-handed male with a history of Parkinson's disease since 2013. He is seen with his . We had a visit using: [employer] I received consent from the patient [...] mg/mL ophthalmic solution 1 Drop twice daily. Talmo 1-I92-[id number]-DE-T4-Nzvlpylozlv 500 mg-500 mcg -1 mg-12.5 mg cap Take by mouth. 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 Updated Movement Disorder Medication Schedule: Medications 5AM [...] Dario Jones MD documented in this encounter [facility] 10-10-2022 History of Presen t illness Narrative [facility] - FOLLOW UP EVALUATION Yayo Lloyd MD [address] [facility] [address] I had the pleasure of seeing Mr. Ecsobar for follow up today. He is a 72 year old right-handed male with a history of Parkinson's disease since 2013. He is seen alone. 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 Parkinson's Medication Schedule - as of the [...] Row [facility] from 10/10/2022 in Neurological Jainism [facility] from 07/26/2022 in Neurological Jainism Global Physical Health T Score 44.9 39.8 [...] mg/mL ophthalmic solution 1 Drop twice daily. Talmo 3-Z38-AJA16-RF-M7-Xcdhnwoblzk 500 mg-500 mcg -1 mg-12.5 mg cap Take by mouth. [id number]-WMLN ORAL Take 3 capsules by mouth once [...] Dario Jones MD documented in this encounter [facility] 09-20-2022 Miscellaneous Notes Images from [...] 3 3 3 documented in this encounter [facility] 07-31-2022 Miscellaneous Notes Last OV 07/26/22 BLW Next OV 10/11/22 BLW Requested Prescriptions Pending Prescriptions Disp Refills rasagiline (AZILECT) 1 mg tab 90 tablet 3 Sig: Take 1 tablet by mouth once daily. Please review and advise. [facility] Robbin Lema documented in this encounter [facility] 07-31-2022 Miscellaneous Notes Patient requests via MyChart refills as follows: When approved Rx escribed to [facility]. 07/26/22 FU w/Dr. Dario Jones Requested Prescriptions Pending Prescriptions Disp Refills carbidopa-levodopa CR (SINEMET CR) 50-200 mg per tablet 90 tablet 3 Sig: Take 1 tablet by mouth daily at bedtime. pramipexole (MIRAPEX) 1 mg tablet 135 tablet 3 Sig: Take 0.5 tablets by mouth three times daily. Please review and advise. [facility] documented in this encounter [facility] 07-31-2022 Miscellaneous Notes Patient requests via MyChart refills as follows: When approved Rx escribed to [facility]. 07/26/22 FU w/Dr. Dario Jones Requested Prescriptions Pending Prescriptions Disp Refills carbidopa-levodopa CR (SINEMET CR) 50-200 mg per tablet 90 tablet 3 Sig: Take 1 tablet by mouth daily at bedtime. pramipexole (MIRAPEX) 1 mg tablet 135 tablet 3 Sig: Take 0.5 tablets by mouth three times daily. Please review and advise. [facility] documented in this encounter [facility] 07-26-2022 History of Presen t illness Narrative [facility] - FOLLOW UP EVALUATION MD Sandra [address] [facility] [address] I had the pleasure of seeing Mr. Escobar for follow up today. He is a 72 year old right-handed male with a history of Parkinson's disease since 2013. He is seen with his . We had a visit using: [employer] I received consent from the patient [...] broke his hip. He was admitted at [facility]. He had hit fixed but did [...] Row [facility] from 07/26/2022 in Neurological Jainism [facility] from 02/27/2022 in Neurology Global [...] mg/mL ophthalmic solution 1 Drop twice daily. Talmo 6-N81-MHD90-HS-P6-Fanjygovsik 500 mg-500 mcg -1 mg-12.5 mg cap Take by mouth. TNCYOCI-ZSFBWXARS-BIDF ORAL Take 3 capsules by mouth once [...] Dario Jones MD documented in this encounter [facility] 04-19-2022 Instructions Dario Jones MD [...] or you can send a message through [employer]. You can also now schedule and select appointments through [employer]. Dario Jones MD documented in this encounter [facility] 04-19-2022 History of Presen t illness Narrative [facility] - FOLLOW UP EVALUATION Yayo Lloyd MD [address] [facility] [address] I had the pleasure of seeing Mr. Escobar for follow up today. He is a 71 year old right-handed male with a history of Parkinson's disease since 2013. He is seen alone. We had a visit using: [employer] I received consent from the patient to perform the visit using this platform. Subjective Previous Plan-01/11/2022 Visit: Parkinson's disease - No changes today. Episode of Hallucinations - Happened once, will observe. Let us know if recurring. Interval History He is doing better with less dyskinesia with the Rytary reduced to 4/3/3/3. He has not been on amantadine. He [...] mg/mL ophthalmic solution 1 Drop twice daily. Talmo 1-Y18-KQB45-CP-S9-Ngyffjegtyt 500 mg-500 mcg -1 mg-12.5 mg cap Take by mouth. [id number]-RXDIZIQDI-FCTS ORAL Take 3 capsules by mouth once [...] Dario Jones MD documented in this encounter [facility] 04-09-2022 Miscellaneous Notes Patient phones requesting refills as follows: When approved Rx escribed to [facility]. 02/27/22 SHAUN wilson/Gale Koo PA-C Pending Prescriptions Disp Refills RASAGILINE 1 MG TABLET 90 tablet 3 Sig: Take 1 tablet by mouth once daily. TACOS: No Please review and advise. [facility] documented in this encounter [facility] 04-01-2022 Miscellaneous Notes Talked to him. Discussed reducing Rytary to 4/3/3/3 Spouse calls stating that patient is highly [...] back to 3 instead of 4. Ph. [phone] Left a message to call back I [...] and have had hallucinations? Number to return [phone] Okay to leave a message ? Yes Last office visit 02/27/22 with Gale Koo PA-C Next office visit 04/19/[address] Dario Jones Thank you calling [facility]. You will receive a return call within 48 hours ( or 2 business days if close to the weekend). If you feel that this is an urgent issue and needs immediate attention, it is recommended that you contact your primary care provider office or proceed to your nearest Urgent Care Center of Emergency Room ED for evaluation/treatment. documented in this encounter [facility] 02-27-2022 Note HNO ID: [id number] Author: Gale Koo PA-C Service: ? Author Type: Physician Shiatsu Therapist Type: Progress Notes Filed: 02/27/2022 1:52 PM [...] ophthalmic solution 1 Drop twice daily. - Talmo 5-U41-LLK15-TO-T7-Thjkfwaetts 500 mg-500 mcg -1 mg-12.5 mg cap Take by mouth. - RTDYBMS-OELWNQTZT-EZGM ORAL Take 3 capsules by mouth once [...] improve his hallucinations. He will send a MyChart message in a few days to let [...] plan of care outlined. Gale Koo PA-C [facility] 01-30-2022 Miscellaneous Notes Noted and reviewed. Relatively normal MRI. PCP ordered. MRI report rec'd via fax from [facility]. Available to view in scanned documents. 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 Parkinson's disease (HCC) Paralysis agitans [facility] Parkinson's [facility] (HCC)- Primary Paralysis agitans Levodopa-induced dyskinesia Subacute 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 [facility] Diagnosis Parkinson's disease (HCC)- Primary Paralysis agitans Levodopa-induced dyskinesia Subacute 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 [facility] Diagnosis Parkinson's disease (HCC)- Primary Paralysis agitans [facility] Diagnosis Parkinson's disease (HCC)- Primary Paralysis agitans Obesity, Class I, BMI 30-34.9 Obesity, unspecified [facility] Diagnosis Levodopa-induced dyskinesia- Primary Subacute 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 Parkinson's disease Paralysis agitans [facility] Parkinson's disease without dyskinesia, with fluctuating manifestations- Primary Levodopa-induced dyskinesia Subacute 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 [facility] Diagnosis Parkinson's disease with dyskinesia and fluctuating manifestations documented in this encounter [facility] Summary Purpose Family History No [...] follow-up with Primar y Care Physician or Doughmaker for treatment or adjustment of medication regarding [...] Referred By Addy huitron Referred To Contact Diagnoses Parkinson's disease (HCC) Procedures PROVIDER ORDERED FOLLOW UP OFFICE/OUTPATIENT [facility] 60-74 MINUTES Dario Jones MD [address] [id number] Referral ID Status Reason Start Date Expiration Date Visits Requested Visits Authorized [id number] Pending Review PCP Requested Referral 04/19/2022 07/18/2022 1 1 Referral ID Status Reason Start Date Expiration Date Visits Requested Visits Authorized [id number] Pending Review PCP Requested Referral 07/26/2022 10/24/2022 1 1 Referral ID Status Reason Start Date Expiration Date Visits Requested Visits Authorized [id number] Pending Review PCP Requested Referral 12/09/2022 01/08/2023 1 1 Referral ID Status Reason Start Date Expiration Date Visits Requested Visits Authorized [id number] Pending Review PCP Requested Referral 01/08/2023 1 1 Referral ID Status Reason Start Date Expiration Date Visits Requested Visits Authorized [id number] Pending Review PCP Requested Referral 03/06/2023 06/04/2023 1 1 Specialty Diagnoses / Procedures Referred By Contac t Referred To Contact Magy Grimm MD [address] [place] [address] Referral ID Status Reason Start Date Expiration Date V isits Requested Visits Authorized [id number] Pending Review 1 1 Specialty Diagnoses / Procedures Referred By Contac t Referred To Contact Diagnoses Parkinson's disease (HCC) Procedures PROVIDER ORDERED FOLLOW UP OFFICE/OUTPATIENT NEW HIGH MDM 60-74 MINUTES Gale Koo PA-C [address] [place] [address] Referral ID Status Reason Start Date Expiration Date Visits Requested Visits Authorized [id number] Pending Review PCP Requested Referral 08/30/2023 07/30/2024 1 1 Specialty Diagnoses / Procedures Referred By Contac t Referred To Contact Diagnoses Parkinson's disease without dyskinesia, with fluctuating manifestations Procedures PROVIDER ORDERED FOLLOW UP OFFICE/OUTPATIENT NEW HIGH MDM 60-74 MINUTES Dario Jones MD [address] [place] [address] Referral ID Status Reason Start Date Expiration Date Visits Requested Visits Authorized [id number] Authorized PCP Requested Referral 01/13/2024 02/12/2024 1 1 Additional Source Comments (unrecognized sect ion and content) No Status Records FoundNo Status Records FoundNo Status Records FoundNo Status Records Found INFORMATION SOURCE (unrecogn ized section and content) DATE CREATED AUTHOR AUTHOR'S ORGANIZ ATION 03/01/2022 [facility] DATE CREATED AUTHOR AUTHOR'S ORGANIZ ATION 07/10/2023 [facility] DATE CREATED AUTHOR AUTHOR'S ORGANIZ ATION 01/04/2024 [facility] Source Comments (unrecognize d section and content) In the event this informatio n is protected by the Federal Confidentiality of Alcohol and Drug Abuse Patient Records regulations: The Federal rules restrict any use of the information to criminally investigate or prosecute any alcohol or drug abuse patient.[facility] the event this information is protected by the Federal Confidentiality of Alcohol and Drug Abuse Patient Records regulations: The Federal rules restrict any use of the information to criminally investigate or prosecute any alcohol or drug abuse patient.[facility] the event this information is protected by the Federal Confidentiality of Alcohol and Drug Abuse Patient Records regulations: The Federal rules restrict any use of the information to criminally investigate or prosecute any alcohol or drug abuse patient.[facility] the event this information is protected by the Federal Confidentiality of Alcohol and Drug Abuse Patient Records regulations: The Federal rules restrict any use of the information to criminally investigate or prosecute any alcohol or drug abuse patient.[facility] the event this information is protected by the Federal Confidentiality of Alcohol and Drug Abuse Patient Records regulations: The Federal rules restrict any use of the information to criminally investigate or prosecute any alcohol or drug abuse patient.[facility] the event this information is protected by the Federal Confidentiality of Alcohol and Drug Abuse Patient Records regulations: The Federal rules restrict any use of the information to criminally investigate or prosecute any alcohol or drug abuse patient.[facility] the event this information is protected by the Federal Confidentiality of Alcohol and Drug Abuse Patient Records regulations: The Federal rules restrict any use of the information to criminally investigate or prosecute any alcohol or drug abuse patient.[facility] the event this information is protected by the Federal Confidentiality of Alcohol and Drug Abuse Patient Records regulations: The Federal rules restrict any use of the information to criminally investigate or prosecute any alcohol or drug abuse patient.[facility] the event this information is protected by the Federal Confidentiality of Alcohol and Drug Abuse Patient Records regulations: The Federal rules restrict any use of the information to criminally investigate or prosecute any alcohol or drug abuse patient.[facility] the event this information is protected by the Federal Confidentiality of Alcohol and Drug Abuse Patient Records regulations: The Federal rules restrict any use of the information to criminally investigate or prosecute any alcohol or drug abuse patient.[facility] the event this information is protected by the Federal Confidentiality of Alcohol and Drug Abuse Patient Records regulations: The Federal rules restrict any use of the information to criminally investigate or prosecute any alcohol or drug abuse patient.[facility] the event this information is protected by the Federal Confidentiality of Alcohol and Drug Abuse Patient Records regulations: The Federal rules restrict any use of the information to criminally investigate or prosecute any alcohol or drug abuse patient.[facility] the event this information is protected by the Federal Confidentiality of Alcohol and Drug Abuse Patient Records regulations: The Federal rules restrict any use of the information to criminally investigate or prosecute any alcohol or drug abuse patient.[facility] the event this information is protected by the Federal Confidentiality of Alcohol and Drug Abuse Patient Records regulations: The Federal rules restrict any use of the information to criminally investigate or prosecute any alcohol or drug abuse patient.[facility] Center[facility] the event this information is protected by the Federal Confidentiality of Alcohol and Drug Abuse Patient Records regulations: The Federal rules restrict any use of the information to criminally investigate or prosecute any alcohol or drug abuse patient.[facility] Center[facility] the event this information is protected by the Federal Confidentiality of Alcohol and Drug Abuse Patient Records regulations: The Federal rules restrict any use of the information to criminally investigate or prosecute any alcohol or drug abuse patient.[facility] Center[facility] the event this information is protected by the Federal Confidentiality of Alcohol and Drug Abuse Patient Records regulations: The Federal rules restrict any use of the information to criminally investigate or prosecute any alcohol or drug abuse patient.[facility] Center[facility] the event this information is protected by the Federal Confidentiality of Alcohol and Drug Abuse Patient Records regulations: The Federal rules restrict any use of the information to criminally investigate or prosecute any alcohol or drug abuse patient.[facility] Center[facility] the event this information is protected by the Federal Confidentiality of Alcohol and Drug Abuse Patient Records regulations: The Federal rules restrict any use of the information to criminally investigate or prosecute any alcohol or drug abuse patient.[facility] CenterIn the event this information is protected by the Federal Confidentiality of Alcohol and Drug Abuse Patient Records regulations: The Federal rules restrict any use of the information to criminally investigate or prosecute any alcohol or drug abuse patient.[facility] CenterIn the event this information is protected by the Federal Confidentiality of Alcohol and Drug Abuse Patient Records regulations: The Federal rules restrict any use of the information to criminally investigate or prosecute any alcohol or drug abuse patient.[facility] CenterIn the event this information is protected by the Federal Confidentiality of Alcohol and Drug Abuse Patient Records regulations: The Federal rules restrict any use of the information to criminally investigate or prosecute any alcohol or drug abuse patient.[facility] CenterIn the event this information is protected by the Federal Confidentiality of Alcohol and Drug Abuse Patient Records regulations: The Federal rules restrict any use of the information to criminally investigate or prosecute any alcohol or drug abuse patient.[facility] Reason for Visit (unrecogniz ed section and content) Specialty Diagnoses / Procedures Referred By Addy huitron Referred To Contact Neurology / NEUROLOGICAL BAPTISM Diagnoses Parkinsons Disease Procedures VIDEO SPEC MD Adán Crews, Dario Che MD [address] [place] [address] Referral ID Status Reason Start Date Expiration Date Visits Re quested Visits Authorized [id number] Closed 07/26/2022 10/24/2022 1 1 Reason Comments [...] HIGH MDM 60-74 MINUTES Dario Jones MD [address] [place] [address] Referral ID Status Reason Start Date Expiration Date Visits Requested Visits Authorized [id number] Pending Review PCP Requested Referral 07/26/2022 10/24/2022 1 1 Reason Comments MRI Report Reason Comments Parkinson's Disease Specialty Diagnoses / Procedures Referred By Contac t Referred To Contact Diagnoses Parkinson's disease (HCC) Procedures PROVIDER ORDERED FOLLOW UP OFFICE/OUTPATIENT NEW HIGH MDM 60-74 MINUTES Dario Jones MD [address] [place] [address] Referral ID Status Reason Start Date Expiration Date Visits Requested Visits Authorized [id number] Pending Review PCP Requested Referral 12/09/2022 01/08/2023 1 1 Reason Onset Date Comments Refill Request 01/30/2023 Rytary Referral ID Status Reason Start Date Expiration Date V isits Requested Visits Authorized [id number] Closed PCP Requested Referral 10/10/2022 01/08/2023 1 1 Reason Comments Symptom Management Reason Onset Date Comments Refill Request 06/09/2023 Reason Comments Numbness Reason Comments Established Patient Reason Comments Established Patient Specialty Diagnoses / Procedures Referred By Contac t Referred To Contact Diagnoses Parkinson's disease Procedures PROVIDER ORDERED FOLLOW UP OFFICE/OUTPATIENT NEW HIGH MDM 60-74 MINUTES Gale Koo PA-C [address] [place] [address] Referral ID Status Reason Start Date Expiration Date Visits Requested Visits Authorized [id number] Pending Review PCP Requested Referral 08/30/2023 07/30/2024 1 1 Reason Comments prior authorization Rytary 48.75-195 mg Specialty Diagnoses / Procedures Referred By Contlisa t Referred To Contact Diagnoses Parkinson's disease without dyskinesia, with fluctuating manifestations Procedures PROVIDER ORDERED FOLLOW UP OFFICE/OUTPATIENT NEW HIGH MDM 60-74 MINUTES Dario Jones MD [address] [place] [address] Referral ID Status Reason Start Date Expiration Date Visits Requested Visits Authorized [id number] Authorized PCP Requested Referral 01/13/2024 02/12/2024 1 1 Care Teams (unrecognized sec tion and content) Household Personal Assistant Relationship Specialty Start Date End Date Yayo Lloyd [address] [place] [address] PCP - General Family Practice 08/23/20 Household Personal Assistant Relationship Specialty Start Date End Date Yayo Lloyd [address] [place] [address] PCP - General Family Practice 08/23/20 Household Personal Assistant Relationship Specialty Start Date End Date Yayo Lloyd [address] [place] [address] PCP - General Family Practice 08/23/20 Household Personal Assistant Relationship Specialty Start Date End Date Yayo Lloyd [address] [place] [address] PCP - General Family Practice 08/23/20 Household Personal Assistant Relationship Specialty Start Date End Date Yayo Lloyd [address] [place] [address] PCP - General Family Practice 08/23/20 Household Personal Assistant Relationship Specialty Start Date End Date Yayo Lloyd [address] [place] [address] PCP - General Family Practice 08/23/20 Household Personal Assistant Relationship Specialty Start Date End Date Deepashaun Yayo Spears [address] [place] [address] PCP - General Family Medicine 08/23/20 Household Personal Assistant Relationship Specialty Start Date End Date Yayo Lloyd [address] [place] [address] PCP - General Family Medicine 08/23/20 Household Personal Assistant Relationship Specialty Start Date End Date Sameertravonshaun Yayo Spears [address] [facility] [address] [place] [address] PCP - General Family Medicine 08/23/20 Household Personal Assistant Relationship Specialty Start Date End Date Thalia Yayo Diehlabi [address] [facility] [address] [place] [address] PCP - General Family Medicine 08/23/20 Household Personal Assistant Relationship Specialty Start Date End Date Thalia Yayo Spears [address] [facility] [address] [place] [address] PCP - General Family Medicine 08/23/20 Household Personal Assistant Relationship Specialty Start Date End Date Thalia Yayo Regan [address] [facility] [address] [place] [address] PCP - General Family Medicine 08/23/20 Household Personal Assistant Relationship Specialty Start Date End Date Thalia Yayo Regan [address] [facility] [address] [place] [address] PCP - General Family Medicine 08/23/20 Household Personal Assistant Relationship Specialty Start Date End Date Yayo Lloyd MD [address] [place] [address] PCP - General Family Medicine 08/23/20 Household Personal Assistant Relationship Specialty Start Date End Date Yayo Lloyd MD [address] [place] [address] PCP - General Family Medicine 08/23/20 Household Personal Assistant Relationship Specialty Start Date End Date Yayo Lloyd MD [address] [place] [address] PCP - General Family Medicine 08/23/20 Household Personal Assistant Relationship Specialty Start Date End Date Yayo Lloyd MD [address] [place] [address] PCP - General Family Medicine 08/23/20 Household Personal Assistant Relationship Specialty Start Date End Date Yayo Lloyd MD [address] [place] [address] PCP - General Family Medicine 08/23/20 Household Personal Assistant Relationship Specialty Start Date End Date Yayo Lloyd MD [address] [place] [address] PCP - General Family Medicine 08/23/20 FOR [...] BE BASED ON THE PRIMARY CLINICAL RECORDS. [facility]. provides no warranty or guarantee of the accuracy or completeness of information in this document.
[2024-01-19 16:08] LABS: Absolute Lymphocyte Count 2.29 X10^3/uL (0.83-4.51); Basophil# 0.06 X10^3/uL; Basophil% 0.7 % (0-1); Eosinophil# 0.05 X10^3/uL; Eosinophils% 0.6 % (0-5); Hematocrit 42.2 % (40-54); Hemoglobin 13.3 g/dL (13.0-16.5); Lymphocyte # 2.29 X10^3/ul (0.83-4.51); Mean Corp Hgb Conc 31.5 g/dL (32-36); Mean Corpuscular Hgb 30.9 pg (27.0-32.0); Mean Corpuscular Volume 98.1 fL (80-94); Mean Platelet Vol. 9.2 fl (6.2-12.0); Monocyte# 0.77 X10^3/uL; Monocyte% 9.4 % (0-10); NRBC Flagged by Analyzer 0 % (0-5); Neutrophil % 61.2 % (47-70); Platelet Count 354 K/mm3 (150-450); RBC Distribution Width CV 13.8 % (11.6-14.6); RBC Distribution Width SD 49.2 fl (35.1-43.9); White Blood Count 8.2 K/mm3 (4.4-11.0)
[2024-01-19 16:13] LABS: ALB/GLOB Ratio 1.1 RATIO (0.9-2.4); AST(SGOT) 17 U/L (15-37); Alanine Aminotransfer ALT/SGPT 11 U/L (16-61); Albumin, Serum 3.7 g/dL (3.2-5.0); Alkaline Phosphatase 78 U/L (45-117); Anion Gap 2 (5-15); BUN 18 mg/dL (7-18); BUN/Creat Ratio 19.1 RATIO (10-20); Calcium,Total 8.8 mg/dL (8.5-10.1); Chloride 108 mmol/L (98-107); Creatinine, Serum 0.94 mg/dL (0.70-1.30); EST Glomerular Filtration Rate 84 mL/min (>60); Est Glom Filt Rate - Afr Amer 101 mL/min (>60); Globulin 3.3 g/dL (2.2-4.2); Glucose 98 mg/dL (74-106); Potassium 4.2 mmol/L (3.5-5.1); Sodium Level 139 mmol/L (136-145)
[2024-01-19 16:45] LABS: BNP,B-Type NATRIURETIC PEPTIDE 84.6 pg/mL (0-100)
== END | disposition home or self-care (01) ==
PROVIDERS: PCP Family Medicine; Referring Provider Nurse Practitioner Family; Visit Provider Nurse Practitioner Family
DX: R06.09 Other forms of dyspnea (principal)
CPT/HCPCS: 36415; 80053; 83880; 85025

== ENCOUNTER → 2024-01-28 | Outpatient (CLI) | payer OTHER, SELFPAY ==
[2024-01-28 14:01] LABS: T4 Free Direct 1.47 ng/dL (0.76-1.46)
[2024-01-28 14:02] LABS: ALB/GLOB Ratio 1.2 RATIO (0.9-2.4); AST(SGOT) 13 U/L (15-37); Alanine Aminotransfer ALT/SGPT 7 U/L (16-61); Albumin, Serum 3.9 g/dL (3.2-5.0); Alkaline Phosphatase 74 U/L (45-117); Anion Gap 5 (5-15); BUN 21 mg/dL (7-18); BUN/Creat Ratio 25.3 RATIO (10-20); Calcium,Total 8.9 mg/dL (8.5-10.1); Chloride 107 mmol/L (98-107); Creatinine, Serum 0.83 mg/dL (0.70-1.30); EST Glomerular Filtration Rate 97 mL/min (>60); Est Glom Filt Rate - Afr Amer 117 mL/min (>60); Globulin 3.3 g/dL (2.2-4.2); Glucose 85 mg/dL (74-106); Potassium 4.2 mmol/L (3.5-5.1); Protein, Total 7.2 g/dL (6.4-8.2); Sodium Level 141 mmol/L (136-145)
== END | disposition home or self-care (01) ==
PROVIDERS: PCP Family Medicine; Referring Provider Internal Medicine Cardiovascular Disease; Visit Provider Internal Medicine Cardiovascular Disease
DX: R06.09 Other forms of dyspnea (principal); J44.9 Chronic obstructive pulmonary disease, unspecified; G20.A1 Parkinson's disease without dyskinesia, without mention of fluctuations; G47.33 Obstructive sleep apnea (adult) (pediatric); R07.9 Chest pain, unspecified; E03.9 Hypothyroidism, unspecified
CPT/HCPCS: 36415; 80053; 84439; 84443

== ENCOUNTER → 2024-02-04 | Outpatient (CLI) | payer OTHER, SELFPAY ==
--- OUTSIDE RECORDS SUMMARY | 2024-02-04 08:44 | XMS RPT_ITS | CCD ---
Author Name Unknown Address [address] [place] [address] Organization [facility] Care Team Providers Care Building Services Coordinator Name Role Phone ANDERS ESCOBAR Unavailable Unavailable ANDERS ESCOBAR Unavailable Unavailable ANDERS ESCOBAR Unavailable Unavailable Angella Solorio Unavailable Yayo Lloyd Primary Care Provider Yayo Lloyd Primary Care Provider Yayo Lloyd Primary Care Provider Yayo Lloyd Primary Care Provider [phone] Yayo Lolyd Primary Care Provider MADIHA CABA Attending Unavailable [...] [SHINGLES VACCINE] food allergy 7 localized edema [facility] [place] [facility] Work Phone: Medications Current Medications Medication Drug Class(es) Dates Sig (Normalized) Sig (Original) QUEtiapine 25 mg oral tablet (10 sources) Atypical Antipsychotic Start: 01-23-2024 End: 01-22-2025 take 0.5 tablet by mouth once daily at bedtime QUEtiapine (SEROQUEL) 25 mg tablet Take 0.5 tablets by mouth daily at bedtime. 15 tablet 11 01/23/2024 01/22/2025 Active Completed/Discontinued Medications Medication Drug Class(es) Dates Sig (Normalized) Sig (Original) amantadine hydrochloride 100 mg oral capsule (3 sources) Influenza A M2 Protein Inhibitor Start: 11-14-2023 End: 11-13-2024 take 1 capsule by mouth once daily amantadine HCl (SYMMETREL) 100 mg capsule Take 1 capsule by mouth once daily. 30 capsule 11 11/14/2023 01/23/2024 Discontinued Problems Active Problems Problem Classification Problem Date Documented Da te Episodic/Chronic Cardiac dysrhythmias (5 sources) Atrial fibrillation; Translations: [Unspecified atrial fibrillation] Onset: 11-14-2023 11-14-2023 Chronic Other acquired deformities (1 source) Spondylolisthesis; Translations: [Spondylolisthesis, lumbar region] Onset: 05-06-2017 05-06-2017 Chronic Other connective tissue disease (1 source) Arthrodesis status; Translations: [Arthrodesis status] Onset: 06-09-2018 06-09-2018 Episodic Other gastrointestinal disorders (1 source) Constipation; Translations: [Constipation, unspecified] 01-23-2024 Episodic Other hereditary and degenerative nervous system conditions (5 sources) Drug-induced dyskinesia; Translations: [Drug induced subacute dyskinesia] Episodic Other nutritional; endocrine; and metabolic disorders (8 sources) Obese class I; Translations: [Obesity, unspecified] [...] 185.4 cm Dario Jones MD Work Phone: [facility] 03-06-2023 15:18-0400 Body weight 116.03 kg Dario Jones MD Work Phone: [facility] 03-06-2023 15:18-0400 SaO2% (BldA) [Mass fraction] 99 % Dario Jones MD Work Phone: [facility] NEGATED: Highlighted [id number] 10:51-0400 BMI (Body Mass Index) 38.4 kg/m2 [facility] Work Phone: NEGATED: Highlighted [id number] 10:51-0400 BP Diastolic 90 mm[Hg] [facility] Work Phone: NEGATED: Highlighted [id number] 10:51-0400 BP Systolic 148 mm[Hg] [facility] Work Phone: NEGATED: Highlighted [id number] 10:51-0400 BP Systolic 142 mm[Hg] [facility] Work Phone: NEGATED: Highlighted [id number] 10:51-0400 Height 185.42 cm [facility] Work Phone: NEGATED: Highlighted [id number] 10:51-0400 Height 185 cm [facility] Work Phone: NEGATED: Highlighted [id number] 10:51-0400 Pulse (Heart Rate) 60 /min [facility] Work Phone: NEGATED: Highlighted [id number] 10:51-0400 Weight 131.54 kg [facility] Work Phone: NEGATED: Highlighted [id number] 10:51-0400 Weight 132 kg [facility] Work Phone: Encounters Encounter Date Encounter Type Care Provider Facility Start: 02-02-2024 Refill Dario cohen MD Work Phone: Neurological Scientologist Procedures Date Procedure Procedure Detail Performing Clinician Start: 07-20-2022 Adult depression scr eening assessment Dario Jones MD Work Phone: Start: 02-27-2022 Adult depression scr eening assessment Gale PALACIOS-C Work Phone: Start: 07-05-2021 Adult depression scr eening assessment Mita Scott RN Start: 06-09-2018 End: 06-09-2018 Blood pressure outside of normal parameters - follow-up documented Angella Sexton DIRECTOR PERIOPERATIVE-ENERGY AND CONSERVATION TECHNICIAN Work Phone: Start: 06-09-2018 End: 06-09-2018 BMI documented as above normal parameters - follow-up documented Angella Sexton DIRECTOR PERIOPERATIVE-ENERGY AND CONSERVATION TECHNICIAN Work Phone: Start: 06-09-2018 End: 06-09-2018 Current medications documented Angella Sexton DIRECTOR PERIOPERATIVE-ENERGY AND CONSERVATION TECHNICIAN Work Phone: Start: 06-09-2018 End: 06-09-2018 Pain assessment documented as negative - follow-up not required Angella Sexton DIRECTOR PERIOPERATIVE-ENERGY AND CONSERVATION TECHNICIAN Work Phone: Start: 06-09-2018 End: 06-09-2018 Tobacco non-user Angella Carlie DIRECTOR PERIOPERATIVE-ENERGY AND CONSERVATION TECHNICIAN Work Phone: Plan of Treatment Date Care Activity Detail Author Start: 06-15-2032 Urine microalbumin profile DTaP,Tdap,Td Vaccine (4 - Td or Tdap) [facility] Start: 12-01-2023 Advance Directive Discussion Advance Directive Discussion [facility] Start: 12-01-2023 Depression Assessment Depression Assessment [facility] Start: 08-01-2023 Covid-19 Vaccine () Covid-19 Vaccine () [facility] Start: 08-01-2023 Influenza vaccination [facility] Start: 07-20-2023 Adult depression screening assessment DEPRESSION SCREENING [facility] Start: 02-27-2023 Adult depression screening assessment DEPRESSION SCREENING [facility] Start: 02-20-2023 COVID-19 VACCINE (4 - Pfizer series) COVID-19 VACCINE (4 - Pfizer series) [facility] Start: 12-01-2022 ADVANCE DIRECTIVE DISCUSSION ADVANCE DIRECTIVE DISCUSSION [facility] Start: 12-01-2022 DEPRESSION ASSESSMENT DEPRESSION ASSESSMENT [facility] Start: 08-01-2022 Influenza vaccination INFLUENZA (#1) [facility] Start: 07-05-2022 Adult depression screening assessment DEPRESSION SCREENING [facility] Start: 05-20-2022 COVID-19 VACCINE (3 - Booster for Pfizer series) COVID-19 VACCINE (3 - Booster for Pfizer series) [facility] Start: 02-14-2022 COVID-19 VACCINE (3 - Booster for Pfizer series) COVID-19 VACCINE (3 - Booster for Pfizer series) [facility] Start: 12-01-2021 ADVANCE DIRECTIVE DISCUSSION ADVANCE DIRECTIVE DISCUSSION [facility] Start: 12-01-2021 DEPRESSION ASSESSMENT DEPRESSION ASSESSMENT [facility] Start: 06-09-2018 End: 06-09-2018 Radex spine lumbosacral minimum 4 views XR LUMBAR 4VWS FLEX/EX [facility] [place] [facility] Work Phone: Start: 06-09-2018 End: 06-09-2018 Appointment Appointment [facility] Work Phone: Start: 2017 Pneumococcal Vaccine: 65+ (1 - PCV) Pneumococcal Vaccine: 65+ (1 - PCV) [facility] Start: 2017 PNEUMOCOCCAL: 65+ (1 - PCV) PNEUMOCOCCAL: 65+ (1 - PCV) [facility] Start: 2017 PNEUMOVAX AGE 65 AND OVER WITH 5YR LOOKBACK (#1) PNEUMOVAX AGE 65 AND OVER WITH 5YR LOOKBACK (#1) [facility] Start: 06-17-2015 Shingrix Vaccine (2 of 3) Shingrix Vaccine (2 of 3) [facility] Start: 2012 RSV Vaccine (1 - 1-dose 60+ series) RSV Vaccine (1 - 1-dose 60+ series) [facility] Start: 2002 SHINGRIX VACCINE (1 of 2) SHINGRIX VACCINE (1 of 2) [facility] Start: 1997 COLOGUARD (FIT-DNA) COLOGUARD (FIT-DNA) [facility] Start: 1997 Colonoscopy COLONOSCOPY [facility] Start: 1997 COLORECTAL CANCER SCREENING COLORECTAL CANCER SCREENING [facility] Start: [address] COLONOGRAPHY [facility] Start: 1997 DIABETES SCREEN DIABETES SCREEN [facility] Start: 1997 Diabetes Screening Diabetes Screening [facility] Start: 1997 FECAL OCCULT BLOOD FECAL OCCULT BLOOD [facility] Start: 1997 Screening for malignant neoplasm of colon [facility] Start: 1997 SIGMOIDOSCOPY SIGMOIDOSCOPY [facility] Start: 1987 Lipid 1996 panel - Serum or Plasma Lipid Screening [facility] Start: 1987 Lipid panel Lipid Screening [facility] Start: 1987 LIPID SCREEN LIPID SCREEN [facility] Start: 1971 Urine microalbumin profile [facility] Start: 1970 HEPATITIS C SCREENING HEPATITIS C SCREENING [facility] Start: 1970 Hepatitis C screening Hepatitis C Screening [facility] Patient Education \cps-sql1\CPS_ PtEducatio n\htn.pdf [facility] Work Phone: [facility] Immunizations Immunization Date Immunization Notes Care Provider Rigoberto fontenot 10-23-2022 influenza virus vaccine, unspecified formulation Gale Koo PA-C Work Phone: [facility] No information available. Kandy Flores AT [facility] [place] [facility] Work Phone: Payers Date Payer Category Payer Unknown [id number] 2022 Unknown [id number] 2019 Unknown [employer] PPO [id number] 2019-Present [phone] [address] [place] [address] PPO [id number] 2019 Unknown [id number] 2017 Medicare MEDICARE MEDICAR E A [id number] 2017-Present [phone] [address] [place] [address] Medicare [id number] Unknown [id number] Social History Date Type Detail Facility Start: 06-09-2018 End: 06-09-2018 Assertion Unknown if ever smoked [facility] Work Phone: Start: 09-26-2020 End: 03-06-2023 Tobacco smoking status NHIS Never smoked tobacco [facility] Start: 09-26-2020 End: 03-06-2023 Tobacco use and exposure Smokeless tobacco non-user [facility] Start: 09-28-2020 End: 03-06-2023 Alcohol intake Lifetime non-drinker (finding) [facility] Start: 09-26-2020 History SDOH Alcohol Frequency 1 [facility] Start: 1950 Sex Assigned At Male [facility] Start: 02-17-2022 End: 07-19-2022 Exposure to SARS-CoV-2 (event) Not sure [facility] Start: 03-06-2023 End: 07-09-2023 History of Social function [facility] Start: 03-06-2023 End: 07-09-2023 Tobacco use panel [facility] Adult Depression Screening Assessment 1 [facility] Start: 07-03-2021 Gender identity Identifies as male gender (finding) [facility] Start: 04-23-2021 Sexual orientation Heterosexual (fin ding) [facility] How often to you hav e a drink containing alcohol? Never [facility] NEGATED: Highlighted rowStart: 06-09-2018 End: 06-09-2018 Employment detail Never smoker [facility] Work Phone: Clinical Notes 01-30-2022 to 02-02-2024 Telephone Encounter - Kenia Enriquez - 02/02/2024 3:50 PM ESTPatient InstructionsDario Jones MD - 01/23/2024 3:20 PM Dario Nelson MD - 11/14/2023 10:06 AM EST Note Date & Type Note Facility 02-02-2024 Miscellaneous Notes calling to request for lower dose Rytary (36.25-145). She says that he still uses this sometimes and it helps. Request from patient requesting refill. Please E-Scribe to [facility]. Last OV: 01/23/24 with BLW Future OV: none Requested Prescriptions Pending Prescriptions Disp Refills carbidopa-levodopa (RYTARY) 36.25-145 mg capsule 360 capsule 3 Sig: Take 1 capsule four times a day with each dose of Rytary 195s Kenia Caldwell documented in this encounter [facility] 01-23-2024 Instructions Dario Jones MD - 01/23/2024 3:41 PM EST It was a pleasure to see you today. We addressed the following diagnoses: Parkinson's disease with dyskinesia and fluctuating manifestations (hcc) (primary encounter diagnosis) Constipation, unspecified constipation type My recommendations are as follows: 01/23/2024 Visit: Constipation - Try MiraLax once daily instead of Ducolax. Hallucinations - try Seroquel 25 mg, 1/2 tablet at bedtime Movement Disorders Medication Schedule: Medications 6AM 10AM 2PM 6PM 10PM Rytary 195 3 2 2 2 Sinemet 50/200 CR 1 Seroquel 25 mg 0.5 Trazedone 50 mg 1 Return at or around: 04/22/24 If there are any concerns before your next visit, please call or you can send a message through [employer]. You can also now schedule and select appointments through [employer]. Dario Jones MD documented in this encounter [facility] 01-23-2024 History of Presen t illness Narrative [facility] - FOLLOW UP EVALUATION - VIRTUAL VISIT Yayo Lloyd MD, MD [address] [facility] [address] [facility] [address] Dear Yayo Lloyd MD, MD: I had the pleasure of seeing Mr. Escobar for follow-up today. As you know he is a 73 year old right-handed male with a history of Parkinson's disease since 2013. He is seen with his . We had a visit using: Postify I have communicated my name and active licensure. The patient's identity and physical location were verified at the time of this visit. Either the patient or their legal canvas products sales representative has been informed of the risks and benefits of -- and alternatives to -- treatment through a remote evaluation and consents to proceed with the evaluation remotely. Subjective During his previous visit the following plan was made: Previous plan-11/14/2023 Visit: Parkinson's disease with unpredictable fluctuations and dyskinesia - Start Amantadine 100 mg once daily at 6AM. Interval History He is doing OK. He has some bloating and gas. In the last week he has had better bowel movements without laxatives. He was taking Ducolax. He was given trazodone 50 mg for sleep which. He was having hallucinations and is no longer taking amantadine. He is still having some. His feet cramp up and curl sometimes. There is not a pattern to this. Movement Disorders Medications Schedule - as of the start of the visit: Medications 6AM 10AM 2PM 6PM 10PM Rytary 195 3 2 2 2 Sinemet 50/200 CR 1 Amantadine 100 mg 1 Parkinson's Motor Complications Medication benefit onset: 60 minutes (Comment: 1-2 hours) Medication duration: 4.5 hours Medication duration: (Comment: 4-4.5 hrs) Wearing off: yes Painful off-state dystonia: yes Dyskinesia: yes Prior Anti-Parkinson Therapies Carbidopa/Levodopa Carbidopa/Levodopa CR Carbidopa/Levodopa ER (Rytary) Pramipexole ALLERGIES No Known Allergies Current Outpatient Medications Medication Sig QUEtiapine (SEROQUEL) 25 mg tablet Take 0.5 tablets by mouth daily at bedtime. traZODone (DESYREL) 50 mg tablet Take 50 mg by mouth every evening. escitalopram oxalate (LEXAPRO) 5 mg tablet Take [...] Take 137 mcg by mouth once daily. [id number] ORAL Take 3 capsules by mouth once [...] Lightheadeness on standing: Yes (slight) Urinary problems: Yes (slight) Constipation problems: Yes (slight) Pain and other sensations: Yes (slight) Speech/Swallowing Speech problems: 0 (none) Drooling: Yes (slight) Chewing and swallowing problems: 0 (none) Sleep/Fatigue Sleep problems: Yes (slight) Daytime sleepiness: Yes (slight) Fatigue: Yes (slight) Objective Neurological Exam Motor Mild dyskinesia. Pertinent Studies 10/06/2015 Vandana Scan FINDINGS: [...] and addressed during this visit: Parkinson's disease with dyskinesia and fluctuating manifestations (hcc) (primary encounter diagnosis) Constipation, unspecified constipation type Plan 01/23/2024 Visit: Constipation - Try MiraLax once daily instead of Ducolax. Hallucinations - try Seroquel 25 mg, 1/2 tablet at bedtime Updated Movement Disorder Medication Schedule: Medications 6AM 10AM 2PM 6PM 10PM Rytary 195 3 2 2 2 Sinemet 50/200 CR 1 Seroquel 25 mg 0.5 Trazedone 50 mg 1 Thank you for allowing me to be part of the clinical care of this patient! I look forward to continued participation in the patient s care with you. Please do not hesitate to call with any questions. Sincerely, Dario Jones MD documented in this encounter [facility] 11-14-2023 Note HNO ID: [id number] Author: Dario Jones MD Service: ? Author Type: Physician Type: Progress Notes Filed: 11/14/2023 3:19 PM Note Text: [facility] - FOLLOW UP EVALUATION - VIRTUAL VISIT Yayo Lloyd MD, MD [address] [facility] [address] Dear Yayo Lloyd MD, MD: I had the pleasure of seeing Mr. Escobar for follow-up today. As you know he is a 73 year old right-handed male with a history of Parkinson's disease since 2013. We had a visit using: Postify I have communicated my name and active licensure. The patient's identity and physical location were verified at the time of this visit. Either the patient or their legal canvas products sales representative has been informed of the risks [...] Take 137 mcg by mouth once daily. [id number] ORAL Take 3 capsules by mouth once [...] Row [facility] from 11/14/2023 in Neurological Scientologist [facility] from 07/09/2023 in Neurology Global Physical Health T Score 44.9 -- Global Mental Health T Score 43.5 43.5 0-10 Standard Pain Scale 4 -- *PROMIS-10 scoring scale: mean = 50, over 50 (more content not included)... [facility] 11-14-2023 History of Presen t illness Narrative [facility] - FOLLOW UP EVALUATION - VIRTUAL VISIT Yayo Lloyd MD, MD [address] [address] Dear Yayo Lloyd MD, MD: I had the pleasure of seeing Mr. Escobar for follow-up today. As you know he is a 73 year old right-handed male with a history of Parkinson's disease since 2013. We had a visit using: Postify I have communicated my name and active licensure. The patient's identity and physical location were verified at the time of this visit. Either the patient or their legal canvas products sales representative has been informed of the risks [...] Take 137 mcg by mouth once daily. [id number]-[id number]-[id number] ORAL Take 3 capsules by mouth once [...] Row [facility] from 11/14/2023 in Neurological Scientologist [facility] from 07/09/2023 in Neurology Global [...] Dario Jones MD documented in this encounter [facility] 09-02-2023 Note HNO ID: [id number] Author: Gale Koo PA-C Service: ? Author Type: Physician Field Applications Specialist Type: Progress Notes Filed: 09/02/2023 6:04 PM [...] Take 137 mcg by mouth once daily. [id number] ORAL Take 3 capsules by mouth once [...] plan of care outlined. Gale Koo PA-C [facility] 09-02-2023 History of Presen t illness Narrative [facility] - VIRTUAL VISIT PCP: Yayo Lloyd MD, I performed this clinical encounter by utilizing [...] Take 137 mcg by mouth once daily. [id number] ORAL Take 3 capsules by mouth once [...] Gale Koo PA-C documented in this encounter [facility] 07-31-2023 Note HNO ID: [id number] Author: Gale Koo PA-C Service: ? Author Type: Physician Field Applications Specialist Type: Progress Notes Filed: 08/01/2023 3:03 PM [...] Neurology [facility] from 12/20/2022 in Neurological Scientologist Global Physical Health T Score -- 47.7 [...] Take 137 mcg by mouth once daily. [id number] ORAL Take 3 capsules by mouth once [...] plan of care outlined. Gale Koo PA-C [facility] 07-31-2023 History of Presen t [...] Neurology [facility] from 12/20/2022 in Neurological Scientologist Global Physical Health T Score -- 47.7 [...] Take 137 mcg by mouth once daily. [id number]-IMBD ORAL Take 3 capsules by mouth once [...] Gale Koo PA-C documented in this encounter [facility] 07-24-2023 Miscellaneous Notes Message left for [...] during these spells. Number to return call [phone] Ludy Escobar (Spouse) Okay to leave a message? Yes documented in this encounter [facility] 07-09-2023 Instructions Madiha Caba APRN.CNP - 07/09/2023 6:18 PM EDT It was [...] or you can send a message through [employer]. You can also now schedule and select appointments through [employer]. Madiha Caba APRN.ERIK documented in this encounter [facility] 07-09-2023 Note HNO ID: [id number] Author: Madiha Caba APRN.CNP Service: ? Author Type: Nurse Practitioner Type: Progress Notes Filed: 07/09/2023 6:18 PM Note Text: [facility] - FOLLOW UP EVALUATION - VIRTUAL VISIT Yayo Lloyd [address] [facility] [address] [facility] [address] Dear Yayo Lloyd: I had the pleasure of seeing Mr. Escobar for follow-up today. As you know he is a 73 year old right-handed male with a history of Parkinson's disease since 2013. He is seen with his . We had a visit using: [employer] I have communicated my name and active licensure. The patient's identity and physical location were verified at the time of this visit. Either the patient or their legal canvas products sales representative has been informed of the risks [...] Not drinking enough. Dyskinesas are bothersome on [id number] 3 capsules so he reduced to 3/2/2/2 [...] Take 137 mcg by mouth once daily. [id number]-XJUL ORAL Take 3 capsules by mouth once [...] Neurology [facility] from 12/20/2022 in Neurological Scientologist Global Physical Health T Score -- 47.7 Global Mental Health T Score 43.5 43.5 0-10 Standard Pain Scale -- 5 *PROMIS-10 scoring scale: mean = 50, over 50 is above average, under 50 is below average Objective He is accompanied by his spouse. General: Awake, eva (more content not included)... [facility] 07-09-2023 History of Presen t illness Narrative [facility] - FOLLOW UP EVALUATION - VIRTUAL VISIT Yayo Lloyd [address] [facility] [address] Dear Yayo Lloyd: I had the pleasure of seeing Mr. Escobar for follow-up today. As you know he is a 73 year old right-handed male with a history of Parkinson's disease since 2013. He is seen with his . We had a visit using: Kuratur I have communicated my name and active licensure. The patient's identity and physical location were verified at the time of this visit. Either the patient or their legal canvas products sales representative has been informed of the risks [...] Not drinking enough. Dyskinesas are bothersome on [id number] 3 capsules so he reduced to 3/2/2/2 [...] Take 137 mcg by mouth once daily. [id number]-[id number] ORAL Take 3 capsules by mouth once [...] Neurology [facility] from 12/20/2022 in Neurological Scientologist Global Physical Health T Score -- 47.7 [...] 1 mg 1 Level of service : 17939 ( 30-39 min). Time spent 35 min on the day of service, which included preparing to see the patient, [id number] patient care, completing clinical documentation, obtaining and/or [...] Madiha Caba APRN.ERIK documented in this encounter [facility] 07-04-2023 Miscellaneous Notes RN called to follow up on prior auth. Rytary 48.75-195mg approved indefinitely on 06/18. [employer] is sending over the approval notification via fax. Patient pharmacy was already notified. Gissell Montemayor RN RN completed and faxed [employer] PA request for Rytary via CoverMeds. Kan Escobar (Hill: [id number])-[facility] Status: Sent to plan today Next Steps: The plan will fax you a determination, typically within 1 to 5 business days. Drug: Rytary 48.75-195MG er capsules Form: TrueIvanpts Prior Authorization Request Form Follow Up: Prior Authorization for [employer] Members phone fao Pharmacy requesting approval fax to be sent to them when received () [phone] Prior Authorization for Medications Requested by ([facility], Patient Call, Fax) : Fax Pharmacy Name: [facility] Phone # : [phone] Name of Medication : Rytary Dose : 48.75-195mg If renewal, auth date expiration: Prescribing Provider: Adán Last OV: March 2023 with Adán Insurance Provider : Dariusz Tyler Is insurance card scanned in, including Rx info? Rx ID number: [id number] Rx BIN: Rx PCN: Rx Grp: [id number] Insurance CoverMyMeds [place]: E-PA? No documented in this encounter [facility] 06-09-2023 Miscellaneous Notes Patient's phones requesting 90 day refills as follows due to Rx coverage/insurance changed: When approved Rx escribed to [facility]. 03/06/23 FUDaphne w/Dr. Jones Requested Prescriptions Pending Prescriptions Disp Refills rasagiline (AZILECT) 1 mg tab 90 tablet 3 Sig: Take 1 tablet by mouth once daily. carbidopa-levodopa (RYTARY) 48.75-195 mg capsule 1080 capsule 3 Sig: Take 3 capsules at 4:30a, take 3 caps at 9a, take 3 caps at 1:30p, 3 caps at 6p Please review and advise. Little Michelle' documented in this encounter [facility] 04-30-2023 Miscellaneous Notes I spoke with [...] symptoms. Would like to discuss. CALLBACK #: [phone] OK TO LEAVE MESSAGE: yes LAST FUV: March 2023 with II documented in this encounter [facility] 03-06-2023 Note HNO ID: [id number] Author: Dario Jones MD Service: ? Author Type: Physician Type: Progress Notes Filed: 03/06/2023 9:52 PM Note Text: [facility] - FOLLOW UP EVALUATION Yayo Lloyd MD [address] [facility] [address] [facility] [address] Dear Yayo Lloyd MD: I had the pleasure of seeing Mr. Escobar for follow-up today. As you know he is a 72 year old right-handed male with a history of Parkinson's disease since 2013. He is seen with his . 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 Interval History: He is having more problems [...] Row [facility] from 12/20/2022 in Neurological Scientologist [facility] from 10/10/2022 in Neurological Scientologist Global Physical Health T Score 47.7 44.9 [...] daily. Pt takes 1 tab at 4:30am.) DFCRIGO-XOTJCGRZB-PVXQ ORAL Take 3 capsules by mouth once [...] bedtime. (Patient not taking: Reported on 03/04/2023) [place] 6-W88-QIX28-KV-O3-Zkezwruwvzo 500 mg-500 mcg -1 mg-12.5 mg cap Take by mouth. (Patient not taking: Reported on 03/04/2023) No current facility-administered medications for this visit. Objective Vital Signs: Ht 185.4 cm (6' 1 ) Wt 116 kg (255 lb 12.8 oz) SpO2 99% BMI 33.75 kg/m? Orthostatic V (more content not included)... [facility] 03-06-2023 Instructions Dario Jones MD [...] or you can send a message through [employer]. You can also now schedule and select appointments through [employer]. Dario Jones MD documented in this encounter [facility] 03-06-2023 History of Presen t illness Narrative [facility] - FOLLOW UP EVALUATION Yayo Lloyd MD [address] [facility] [address] Dear Yayo Lloyd MD: I had the pleasure of seeing Mr. Escobar for follow-up today. As you know he is a 72 year old right-handed male with a history of Parkinson's disease since 2013. He is seen with his . 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 Interval History: He is having more problems [...] Row [facility] from 12/20/2022 in Neurological Scientologist [facility] from 10/10/2022 in Neurological Scientologist Global Physical Health T Score 47.7 44.9 [...] daily. Pt takes 1 tab at 4:30am.) VTZOMAS-JKCVQVEXQ-HYJR ORAL Take 3 capsules by mouth once [...] bedtime. (Patient not taking: Reported on 03/04/2023) [place] 4-G84-CZE17-NH-K1-Advetflqrva 500 mg-500 mcg -1 mg-12.5 mg cap [...] Dario Jones MD documented in this encounter [facility] 01-30-2023 Miscellaneous Notes Pt's requesting refill [...] electronically to the patient's pharmacy. Ashley Ortiz, Senior Clinical Study Manager III documented in this encounter [facility] 12-20-2022 History of Presen t illness Narrative [facility] - FOLLOW UP EVALUATION - VIRTUAL VISIT Yayo Lloyd MD [address] [place] [facility] [address] Dear Yayo Lloyd MD: I had the pleasure of seeing Mr. Escobar for follow-up today. As you know he is a 72 year old right-handed male with a history of Parkinson's disease since 2013. He is seen with his . We had a visit using: Postify I received consent from the patient to [...] mg/mL ophthalmic solution 1 Drop twice daily. [place] 1-T35-EFC12-IW-E5-Zetgvrsdrfu 500 mg-500 mcg -1 mg-12.5 mg cap Take by mouth. 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 Updated Movement Disorder Medication Schedule: Medications 5AM [...] Dario Jones MD documented in this encounter [facility] 10-10-2022 History of Presen t illness Narrative [facility] - FOLLOW UP EVALUATION Yayo Lloyd MD [address] [facility] [address] [facility] [address] I had the pleasure of seeing Mr. Escobar for follow up today. He is a 72 year old right-handed male with a history of Parkinson's disease since 2013. He is seen alone. We had a visit using: Postify I received consent from the patient to [...] Row [facility] from 10/10/2022 in Neurological Scientologist [facility] from 07/26/2022 in Neurological Scientologist Global Physical Health T Score 44.9 39.8 [...] mg/mL ophthalmic solution 1 Drop twice daily. [place] 4-C89-JTR48-VA-K8-Vagrlwbjcyr 500 mg-500 mcg -1 mg-12.5 mg cap Take by mouth. KHJEKUG-GCXOWKJYQ-NQCL ORAL Take 3 capsules by mouth once [...] Dario Jones MD documented in this encounter [facility] 09-20-2022 Miscellaneous Notes Images from the [...] 3 3 3 documented in this encounter [facility] 07-31-2022 Miscellaneous Notes Last OV 07/26/22 BLW Next OV 10/11/22 BLW Requested Prescriptions Pending Prescriptions Disp Refills rasagiline (AZILECT) 1 mg tab 90 tablet 3 Sig: Take 1 tablet by mouth once daily. Please review and advise. [facility] [place] documented in this encounter [facility] 07-31-2022 Miscellaneous Notes Patient requests via [employer] refills as follows: When approved Rx escribed to [facility]. 07/26/22 FU w/Dr. Dario Jones Requested Prescriptions Pending Prescriptions Disp Refills carbidopa-levodopa CR (SINEMET CR) 50-200 mg per tablet 90 tablet 3 Sig: Take 1 tablet by mouth daily at bedtime. pramipexole (MIRAPEX) 1 mg tablet 135 tablet 3 Sig: Take 0.5 tablets by mouth three times daily. Please review and advise. [facility] documented in this encounter [facility] 07-31-2022 Miscellaneous Notes Patient requests via MyChart refills as follows: When approved Rx escribed to [facility]. 07/26/22 FU w/Dr. Dario Jones Requested Prescriptions Pending Prescriptions Disp Refills carbidopa-levodopa CR (SINEMET CR) 50-200 mg per tablet 90 tablet 3 Sig: Take 1 tablet by mouth daily at bedtime. pramipexole (MIRAPEX) 1 mg tablet 135 tablet 3 Sig: Take 0.5 tablets by mouth three times daily. Please review and advise. [facility] documented in this encounter [facility] 07-26-2022 History of Presen t illness Narrative [facility] - FOLLOW UP EVALUATION Yayo Lloyd MD [address] [facility] [address] I had the pleasure of seeing Mr. Escobar for follow up today. He is a 72 year old right-handed male with a history of Parkinson's disease since 2013. He is seen with his . We had a visit using: Postify I received consent from the patient to [...] broke his hip. He was admitted at [facility]. He had hit fixed but did not [...] Row [facility] from 07/26/2022 in Neurological Scientologist [facility] from 02/27/2022 in Neurology Global [...] mg/mL ophthalmic solution 1 Drop twice daily. [place] 3-F39-NQX78-JC-S7-Mbslovpdide 500 mg-500 mcg -1 mg-12.5 mg cap Take by mouth. RLOBBWA-IXGDSWWTJ-JSPG ORAL Take 3 capsules by mouth once [...] Dario Jones MD documented in this encounter [facility] 04-19-2022 Instructions Dario Jones MD - [...] or you can send a message through [employer]. You can also now schedule and select appointments through [employer]. Dario Jones MD documented in this encounter [facility] 04-19-2022 History of Presen t illness Narrative [facility] - FOLLOW UP EVALUATION MD Sandra [address] [facility] [address] I had the pleasure of seeing Mr. Escobar for follow up today. He is a 71 year old right-handed male with a history of Parkinson's disease since 2013. He is seen alone. We had a visit using: Postify I received consent from the patient to perform the visit using this platform. Subjective Previous Plan-01/11/2022 Visit: Parkinson's disease - No changes today. Episode of Hallucinations - Happened once, will observe. Let us know if recurring. Interval History He is doing better with less dyskinesia with the Rytary reduced to 4///3. He has not been on amantadine. He [...] mg/mL ophthalmic solution 1 Drop twice daily. [place] 8-L22-NEJ94-LD-D8-Esrxwxopycf 500 mg-500 mcg -1 mg-12.5 mg cap Take by mouth. FYJRGXB-UFPUDQGCV-KEZV ORAL Take 3 capsules by mouth once [...] Dario Jones MD documented in this encounter [facility] 04-09-2022 Miscellaneous Notes Patient phones requesting refills as follows: When approved Rx escribed to [facility]. 02/27/22 FUDaphne w/Gale Koo PA-C Pending Prescriptions Disp Refills RASAGILINE 1 MG TABLET 90 tablet 3 Sig: Take 1 tablet by mouth once daily. TACOS: No Please review and advise. [facility] documented in this encounter [facility] 04-01-2022 Miscellaneous Notes Talked to him. Discussed reducing Rytary to Spouse calls stating that patient is highly [...] back to 3 instead of 4. Ph. [phone] Left a message to call back I [...] Name and Date of . ( Kan Escoabr, 1950). Yes Reason for Call : Pt called to learn if Rytary can be decreased since he has too much energy and have had hallucinations? Number to return [phone] Okay to leave a message ? Yes Last office visit 02/27/22 with Gale Koo PA-C Next office visit 04/19/[address] Dario Jones Thank you calling [facility] [place]. You will receive a return call within 48 hours ( or 2 business days if close to the weekend). If you feel that this is an urgent issue and needs immediate attention, it is recommended that you contact your primary care provider office or proceed to your nearest Urgent Care Center of Emergency Room ED for evaluation/treatment. documented in this encounter [facility] 02-27-2022 Note HNO ID: [id number] Author: Gale Koo PA-C Service: ? Author Type: Physician Field Applications Specialist Type: Progress Notes Filed: 02/27/2022 1:52 PM [...] ophthalmic solution 1 Drop twice daily. - [place] 6-K82-TIZ03-BJ-U7-Yasutrtkewv 500 mg-500 mcg -1 mg-12.5 mg cap Take by mouth. - PEFPXYA-PVLCXENNH-JYBL ORAL Take 3 capsules by mouth once [...] improve his hallucinations. He will send a [employer] message in a few days to let [...] plan of care outlined. Gale Koo PA-C [facility] 01-30-2022 Miscellaneous Notes Noted and reviewed. Relatively normal MRI. PCP ordered. MRI report rec'd via fax from [facility]. Available to view in scanned documents. 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 Parkinson's disease (HCC) Paralysis agitans [facility]'s [facility] (HCC)- Primary Paralysis agitans Levodopa-induced dyskinesia Subacute 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 [facility] Diagnosis Parkinson's disease (HCC)- Primary Paralysis agitans Levodopa-induced dyskinesia Subacute 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 [facility] Parkinson's disease (HCC)- Primary Paralysis agitans [facility] Diagnosis Parkinson's disease (HCC)- Primary Paralysis agitans Obesity, Class I, BMI 30-34.9 Obesity, unspecified [facility] Diagnosis Levodopa-induced dyskinesia- Primary Subacute 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 Parkinson's disease Paralysis agitans [facility] Diagnosis Parkinson's disease without dyskinesia, with fluctuating manifestations- Primary Levodopa-induced dyskinesia Subacute 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 [facility] Diagnosis Parkinson's disease with dyskinesia and fluctuating manifestations [facility] Diagnosis Parkinson's disease with dyskinesia and fluctuating manifestations (HCC)- Primary Constipation, unspecified constipation type documented in this encounter [facility] Summary Purpose Family History No Family [...] follow-up with Primar y Care Physician or Fruit Farmworker for treatment or adjustment of medication regarding elevated blood pressure.Patient advised to follow-up with Primary Care Physician for BMI management. Assessments There may be information available, but it has not been provided by the sender. Review of System There may be information available, but it has not been provided by the sender. Reason for Referral Specialty Diagnoses / Procedures Referred By Contac t Referred To Contact Diagnoses Parkinson's disease (HCC) Procedures PROVIDER ORDERED FOLLOW UP OFFICE/OUTPATIENT [facility] 60-74 MINUTES Dario Jones MD [address] [place] [address] Referral ID Status Reason Start Date Expiration Date Visits Requested Visits Authorized [id number] Pending Review PCP Requested Referral 04/19/2022 07/18/2022 1 1 Referral ID Status Reason Start Date Expiration Date Visits Requested Visits Authorized [id number] Pending Review PCP Requested Referral 07/26/2022 10/24/2022 1 1 Referral ID Status Reason Start Date Expiration Date Visits Requested Visits Authorized [id number] Pending Review PCP Requested Referral 12/09/2022 01/08/2023 1 1 Referral ID Status Reason Start Date Expiration Date Visits Requested Visits Authorized [id number] Pending Review PCP Requested Referral 01/08/2023 1 1 Referral ID Status Reason Start Date Expiration Date Visits Requested Visits Authorized [id number] Pending Review PCP Requested Referral 03/06/2023 06/04/2023 1 1 Specialty Diagnoses / Procedures Referred By Contac t Referred To Contact Magy Grimm MD [address] [place] [address] Referral ID Status Reason Start Date Expiration Date V isits Requested Visits Authorized [id number] Pending Review 1 1 Specialty Diagnoses / Procedures Referred By Contac t Referred To Contact Diagnoses Parkinson's disease (HCC) Procedures PROVIDER ORDERED FOLLOW UP OFFICE/OUTPATIENT NEW HIGH MDM 60-74 MINUTES Gale Koo PA-C [address] [place] [address] Referral ID Status Reason Start Date Expiration Date Visits Requested Visits Authorized [id number] Pending Review PCP Requested Referral 08/30/2023 07/30/2024 1 1 Specialty Diagnoses / Procedures Referred By Contac t Referred To Contact Diagnoses Parkinson's disease without dyskinesia, with fluctuating manifestations Procedures PROVIDER ORDERED FOLLOW UP OFFICE/OUTPATIENT NEW HIGH MDM 60-74 MINUTES Dario Jones MD [address] [place] [address] Referral ID Status Reason Start Date Expiration Date Visits Requested Visits Authorized [id number] Authorized PCP Requested Referral 01/13/2024 02/12/2024 1 1 Specialty Diagnoses / Procedures Referred By Contac t Referred To Contact Diagnoses Parkinson's disease with dyskinesia and fluctuating manifestations (HCC) Procedures PROVIDER ORDERED FOLLOW UP OFFICE/OUTPATIENT JEAN MARTÍNEZ [facility] 60 MINUTES Dario Jones MD [address] [place] [address] Referral ID Status Reason Start Date Expiration Date Visits Requested Visits Authorized [id number] Authorized PCP Requested Referral 01/23/2024 04/22/2024 1 1 Additional Source Comments (unrecognized sect ion and content) No Status Records FoundNo Status Records FoundNo Status Records FoundNo Status Records Found INFORMATION SOURCE (unrecogn ized section and content) DATE CREATED AUTHOR AUTHOR'S ORGANIZ ATION 03/01/2022 [facility] DATE CREATED AUTHOR AUTHOR'S ORGANIZ ATION 07/10/2023 [facility] DATE CREATED AUTHOR AUTHOR'S ORGANIZ ATION 01/04/2024 [facility] Source Comments (unrecognize d section and content) In the event this informatio n is protected by the Federal Confidentiality of Alcohol and Drug Abuse Patient Records regulations: The Federal rules restrict any use of the information to criminally investigate or prosecute any alcohol or drug abuse patient.[facility] the event this information is protected by the Federal Confidentiality of Alcohol and Drug Abuse Patient Records regulations: The Federal rules restrict any use of the information to criminally investigate or prosecute any alcohol or drug abuse patient.[facility] Hospital[facility] the event this information is protected by the Federal Confidentiality of Alcohol and Drug Abuse Patient Records regulations: The Federal rules restrict any use of the information to criminally investigate or prosecute any alcohol or drug abuse patient.[facility] HospitalIn the event this information is protected by the Federal Confidentiality of Alcohol and Drug Abuse Patient Records regulations: The Federal rules restrict any use of the information to criminally investigate or prosecute any alcohol or drug abuse patient.[facility] HospitalIn the event this information is protected by the Federal Confidentiality of Alcohol and Drug Abuse Patient Records regulations: The Federal rules restrict any use of the information to criminally investigate or prosecute any alcohol or drug abuse patient.[facility] HospitalIn the event this information is protected by the Federal Confidentiality of Alcohol and Drug Abuse Patient Records regulations: The Federal rules restrict any use of the information to criminally investigate or prosecute any alcohol or drug abuse patient.[facility] HospitalIn the event this information is protected by the Federal Confidentiality of Alcohol and Drug Abuse Patient Records regulations: The Federal rules restrict any use of the information to criminally investigate or prosecute any alcohol or drug abuse patient.[facility] HospitalIn the event this information is protected by the Federal Confidentiality of Alcohol and Drug Abuse Patient Records regulations: The Federal rules restrict any use of the information to criminally investigate or prosecute any alcohol or drug abuse patient.[facility] HospitalIn the event this information is protected by the Federal Confidentiality of Alcohol and Drug Abuse Patient Records regulations: The Federal rules restrict any use of the information to criminally investigate or prosecute any alcohol or drug abuse patient.[facility] HospitalIn the event this information is protected by the Federal Confidentiality of Alcohol and Drug Abuse Patient Records regulations: The Federal rules restrict any use of the information to criminally investigate or prosecute any alcohol or drug abuse patient.[facility] HospitalIn the event this information is protected by the Federal Confidentiality of Alcohol and Drug Abuse Patient Records regulations: The Federal rules restrict any use of the information to criminally investigate or prosecute any alcohol or drug abuse patient.[facility] HospitalIn the event this information is protected by the Federal Confidentiality of Alcohol and Drug Abuse Patient Records regulations: The Federal rules restrict any use of the information to criminally investigate or prosecute any alcohol or drug abuse patient.[facility] HospitalIn the event this information is protected by the Federal Confidentiality of Alcohol and Drug Abuse Patient Records regulations: The Federal rules restrict any use of the information to criminally investigate or prosecute any alcohol or drug abuse patient.[facility] HospitalIn the event this information is protected by the Federal Confidentiality of Alcohol and Drug Abuse Patient Records regulations: The Federal rules restrict any use of the information to criminally investigate or prosecute any alcohol or drug abuse patient.[facility] HospitalIn the event this information is protected by the Federal Confidentiality of Alcohol and Drug Abuse Patient Records regulations: The Federal rules restrict any use of the information to criminally investigate or prosecute any alcohol or drug abuse patient.[facility] HospitalIn the event this information is protected by the Federal Confidentiality of Alcohol and Drug Abuse Patient Records regulations: The Federal rules restrict any use of the information to criminally investigate or prosecute any alcohol or drug abuse patient.[facility] HospitalIn the event this information is protected by the Federal Confidentiality of Alcohol and Drug Abuse Patient Records regulations: The Federal rules restrict any use of the information to criminally investigate or prosecute any alcohol or drug abuse patient.[facility] HospitalIn the event this information is protected by the Federal Confidentiality of Alcohol and Drug Abuse Patient Records regulations: The Federal rules restrict any use of the information to criminally investigate or prosecute any alcohol or drug abuse patient.[facility] HospitalIn the event this information is protected by the Federal Confidentiality of Alcohol and Drug Abuse Patient Records regulations: The Federal rules restrict any use of the information to criminally investigate or prosecute any alcohol or drug abuse patient.[facility] HospitalIn the event this information is protected by the Federal Confidentiality of Alcohol and Drug Abuse Patient Records regulations: The Federal rules restrict any use of the information to criminally investigate or prosecute any alcohol or drug abuse patient.[facility] HospitalIn the event this information is protected by the Federal Confidentiality of Alcohol and Drug Abuse Patient Records regulations: The Federal rules restrict any use of the information to criminally investigate or prosecute any alcohol or drug abuse patient.[facility] HospitalIn the event this information is protected by the Federal Confidentiality of Alcohol and Drug Abuse Patient Records regulations: The Federal rules restrict any use of the information to criminally investigate or prosecute any alcohol or drug abuse patient.[facility] HospitalIn the event this information is protected by the Federal Confidentiality of Alcohol and Drug Abuse Patient Records regulations: The Federal rules restrict any use of the information to criminally investigate or prosecute any alcohol or drug abuse patient.[facility] HospitalIn the event this information is protected by the Federal Confidentiality of Alcohol and Drug Abuse Patient Records regulations: The Federal rules restrict any use of the information to criminally investigate or prosecute any alcohol or drug abuse patient.[facility] HospitalIn the event this information is protected by the Federal Confidentiality of Alcohol and Drug Abuse Patient Records regulations: The Federal rules restrict any use of the information to criminally investigate or prosecute any alcohol or drug abuse patient.[facility] Reason for Visit (unrecogniz ed section and content) Specialty Diagnoses / Procedures Referred By Contac t Referred To Contact Neurology / [facility] Diagnoses Parkinsons Disease Procedures VIDEO SPEC MD Adán Crews Benjamin Lee, MD [address] [place] [address] Referral ID Status Reason Start Date Expiration Date Visits Re quested Visits Authorized [id number] Closed 07/26/2022 10/24/2022 1 1 Reason Comments [...] HIGH MDM 60-74 MINUTES Dario Jones MD [address] [place] [address] Referral ID Status Reason Start Date Expiration Date Visits Requested Visits Authorized [id number] Pending Review PCP Requested Referral 07/26/2022 10/24/2022 1 1 Reason Comments MRI Report Reason Comments Parkinson's Disease Specialty Diagnoses / Procedures Referred By Contac t Referred To Contact Diagnoses Parkinson's disease (HCC) Procedures PROVIDER ORDERED FOLLOW UP OFFICE/OUTPATIENT NEW HIGH MDM 60-74 MINUTES Dario Jones MD [address] [place] [address] Referral ID Status Reason Start Date Expiration Date Visits Requested Visits Authorized [id number] Pending Review PCP Requested Referral 12/09/2022 01/08/2023 1 1 Reason Onset Date Comments Refill Request 01/30/2023 Rytary Referral ID Status Reason Start Date Expiration Date V isits Requested Visits Authorized [id number] Closed PCP Requested Referral 10/10/2022 01/08/2023 1 1 Reason Comments Symptom Management Reason Onset Date Comments Refill Request 06/09/2023 Reason Comments Numbness Reason Comments Established Patient Reason Comments Established Patient Specialty Diagnoses / Procedures Referred By Contac t Referred To Contact Diagnoses Parkinson's disease Procedures PROVIDER ORDERED FOLLOW UP OFFICE/OUTPATIENT NEW HIGH MDM 60-74 MINUTES Gale Koo PA-C [address] [place] [address] Referral ID Status Reason Start Date Expiration Date Visits Requested Visits Authorized [id number] Pending Review PCP Requested Referral 08/30/2023 07/30/2024 1 1 Reason Comments prior authorization Rytary 48.75-195 mg Specialty Diagnoses / Procedures Referred By Addy t Referred To Contact Diagnoses Parkinson's disease without dyskinesia, with fluctuating manifestations Procedures PROVIDER ORDERED FOLLOW UP OFFICE/OUTPATIENT NEW HIGH MDM 60-74 MINUTES Dario Jones MD [address] [place] [address] Referral ID Status Reason Start Date Expiration Date Visits Requested Visits Authorized [id number] Authorized PCP Requested Referral 01/13/2024 02/12/2024 1 1 Reason Comments Refill Request Care Teams (unrecognized sec tion and content) Building Services Coordinator Relationship Specialty Start Date End Date Yayo Lloyd [address] [facility] [address] [place] [address] PCP - General Family Practice 08/23/20 Building Services Coordinator Relationship Specialty Start Date End Date Yayo Lloyd [address] [facility] [address] [place] [address] PCP - General Family Practice 08/23/20 Building Services Coordinator Relationship Specialty Start Date End Date Yayo Lloyd [address] [facility] [address] [place] [address] PCP - General Family Practice 08/23/20 Building Services Coordinator Relationship Specialty Start Date End Date Yayo Lloyd [address] [facility] [address] [place] [address] PCP - General Family Practice 08/23/20 Building Services Coordinator Relationship Specialty Start Date End Date Yayo Lloyd [address] [facility] [address] [place] [address] PCP - General Family Practice 08/23/20 Building Services Coordinator Relationship Specialty Start Date End Date Yayo Lloyd [address] [facility] [address] [place] [address] PCP - General Family Practice 08/23/20 Building Services Coordinator Relationship Specialty Start Date End Date Yayo Lloyd [address] [facility] [address] [place] [address] PCP - General Family Medicine 08/23/20 Building Services Coordinator Relationship Specialty Start Date End Date [facility]ayo Lloyd [address] [facility] [address] [place] [address] PCP - General Family Medicine 08/23/20 Building Services Coordinator Relationship Specialty Start Date End Date Yayo Lloyd [address] [facility] [address] [place] [address] PCP - General Family Medicine 08/23/20 Building Services Coordinator Relationship Specialty Start Date End Date Yayo Lloyd [address] [facility] [address] [address] [place] [address] PCP - General Family Medicine 08/23/20 Building Services Coordinator Relationship Specialty Start Date End Date Yayo Lloyd [address] [facility] [address] [address] [place] [address] PCP - General Family Medicine 08/23/20 Building Services Coordinator Relationship Specialty Start Date End Date Yayo Lloyd [address] [facility] [address] [place] [address] PCP - General Family Medicine 08/23/20 Building Services Coordinator Relationship Specialty Start Date End Date Yayo Lloyd [address] [facility] [address] [address] [place] [address] PCP - General Family Medicine 08/23/20 Building Services Coordinator Relationship Specialty Start Date End Date Yayo Lloyd MD [address] [place] [address] PCP - General Family Medicine 08/23/20 Building Services Coordinator Relationship Specialty Start Date End Date Yayo Lloyd MD [address] [place] [address] PCP - General Family Medicine 08/23/20 Building Services Coordinator Relationship Specialty Start Date End Date Yayo Lloyd MD [address] [place] [address] PCP - General Family Medicine 08/23/20 Building Services Coordinator Relationship Specialty Start Date End Date Yayo Lloyd MD [address] [place] [address] PCP - General Family Medicine 08/23/20 Building Services Coordinator Relationship Specialty Start Date End Date Yayo Lloyd MD [address] [place] [address] PCP - General Family Medicine 08/23/20 Building Services Coordinator Relationship Specialty Start Date End Date Yayo Lloyd MD [address] [place] [address] PCP - General Family Medicine 08/23/20 Building Services Coordinator Relationship Specialty Start Date End Date Yayo Lloyd MD [address] [place] [address] PCP - General Family Medicine 08/23/20 Building Services Coordinator Relationship Specialty Start Date End Date Yayo Lloyd MD [address] [place] [address] PCP - General Family Medicine 08/23/20 FOR [...] BE BASED ON THE PRIMARY CLINICAL RECORDS. [employer] provides no warranty or guarantee of the accuracy or completeness of information in this document.
== END | disposition home or self-care (01) ==
LOC: PSN 08:18
PROVIDERS: PCP Family Medicine; Referring Provider Internal Medicine Cardiovascular Disease; Visit Provider Internal Medicine Cardiovascular Disease
DX: R06.09 Other forms of dyspnea (principal); J44.9 Chronic obstructive pulmonary disease, unspecified; R07.9 Chest pain, unspecified; G20.C Parkinsonism, unspecified; G47.33 Obstructive sleep apnea (adult) (pediatric)
CPT/HCPCS: 94060; 94726; 94729

== ENCOUNTER → 2024-03-02 | Outpatient (CLI) | payer OTHER, SELFPAY ==
--- NOTE | 2024-03-02 14:10 | CT_ITS ---
STUDY: CT ABDOMEN AND PELVIS WITHOUT CONTRAST REASON FOR EXAM: Male, 73 years old. HX OF URINARY CALCULI RADIATION DOSAGE (If Supplied By Facility): CTDIvol = ( 16.80 ) mGy, DLP = ( 860.41 ) mGycm TECHNIQUE: Transaxial images were obtained from the dome of the diaphragm to the symphysis pubis without oral contrast, and without intravenous contrast. Sagittal and coronal images were reconstructed. Individualized dose optimization techniques were used for this CT. COMPARISON: Comparison is made with prior study dated September 10, 2023. FINDINGS: The visualized lung bases are unremarkable. Coronary artery calcification. There is a 1.4 cm cyst in the left lobe of the liver. Stable cysts in the posterior inferior aspect of the right lobe of the liver. The largest cyst measures 4 cm x 3.5 cm. There are small gallstones in the dependent portion of the gallbladder lumen. Normal spleen. Normal pancreas. Normal bilateral adrenal glands. There is a 5.8 cm x 4.9 cm cyst in the upper anterior aspect of the right kidney. There is also evidence of a 4.2 cm x 3.3 cm cyst in the lateral inferior pole of the right kidney. There is a 2.5 cm cyst in the posterior medial aspect of the left kidney. No intrarenal calculi are seen. Normal visualized stomach. Normal small intestine. There are multiple colonic diverticula consistent with diverticulosis. The appendix is visualized and appears normal. There is scattered atherosclerotic calcification of the abdominal aorta, without a demonstrated aneurysm. Normal inferior vena cava. Normal retroperitoneum. Normal urinary bladder. There is a left-sided inguinal hernia containing adipose tissue. There are degenerative changes of the visualized lumbar spine. Prior fusion at the L4-L5 level. Status post ORIF of a proximal right femur fracture. CT/Abdomen/Pelvis without Cont IMPRESSION: Stable hepatic cysts. Stable bilateral renal cysts more prominent on the right side. Small gallstones. Electronically Signed: Og Esquivel MD at 14:37 EDT ,
== END | disposition home or self-care (01) ==
LOC: CT 13:34
PROVIDERS: PCP Family Medicine; Referring Provider Urology; Visit Provider Urology
DX: K76.89 Other specified diseases of liver (principal); K80.20 Calculus of gallbladder without cholecystitis without obstruction; Z87.442 Personal history of urinary calculi
CPT/HCPCS: 74176

== ENCOUNTER → 2024-03-11 | Outpatient (CLI) | payer OTHER, SELFPAY ==
--- NOTE | 2024-03-11 16:34 | RAD_ITS ---
STUDY: X-RAY - ACUTE ABDOMINAL SERIES REASON FOR EXAM: Male, 73 years old. Chronic abdominal TECHNIQUE: Single view of the chest. Supine, and upright view(s) of the abdomen were obtained. COMPARISON: None. FINDINGS: The lungs are clear and expanded. Normal size heart. Normal mediastinum and lazara. Normal visualized pulmonary arteries. Tortuous mildly calcified aortic arch and descending thoracic aorta. No evidence for small bowel obstruction or intraperitoneal air There is diffuse fecal retention seen throughout much of the colon.. The soft tissue structures of the abdomen and pelvis are unremarkable. The thoracic and lumbar spines demonstrate degenerative change. Postsurgical changes of the lumbar spine. There are postsurgical changes of the right hip RAD/Acute Abdomen Inc Chest IMPRESSION: Nonspecific diffuse fecal retention within the colon.. No evidence for small bowel obstruction Electronically Signed: Trip Hong MD at 18:33 EDT ,
== END | disposition home or self-care (01) ==
LOC: MTRAD 16:34
PROVIDERS: PCP Family Medicine; Referring Provider Family Medicine; Visit Provider Family Medicine
DX: R68.81 Early satiety (principal)
CPT/HCPCS: 74022

== ENCOUNTER → 2024-04-23 | Outpatient (CLI) | payer OTHER, SELFPAY ==
--- NOTE | 2024-04-23 11:31 | RAD_ITS ---
STUDY: X-RAY - SACRUM/COCCYX REASON FOR EXAM: Male, 73 years old. Sacral pain. TECHNIQUE: 4 views of the sacrum and coccyx were obtained. COMPARISON: None. FINDINGS: Normal bilateral sacroiliac joints. Normal visualized sacral ala and fused sacral bodies. Normal sacrococcygeal junction with a normal angulation. Normal coccygeal segments. The presacral soft tissue structures are unremarkable. There is fusion hardware in the visualized lower lumbar spine. There are right hip screws in place. RAD/Sacrum-Coccyx min 2 Views IMPRESSION: Unremarkable x-rays of the sacrum and coccyx. Electronically Signed: Patric Che MD at 16:03 EDT ,
== END | disposition home or self-care (01) ==
LOC: MTRAD 11:31
PROVIDERS: PCP Family Medicine; Referring Provider Family Medicine; Visit Provider Family Medicine
DX: S30.0XXA Contusion of lower back and pelvis, initial encounter (principal); X58.XXXA Exposure to other specified factors, initial encounter
CPT/HCPCS: 72220

== ENCOUNTER → 2024-04-29 | Outpatient (CLI) | payer OTHER, SELFPAY | END | disposition home or self-care (01) | LOC: PSN 08:55 | PROVIDERS: PCP Family Medicine; Referring Provider Nurse Practitioner Family; Visit Provider Nurse Practitioner Family | DX: R06.09 Other forms of dyspnea (principal); I48.0 Paroxysmal atrial fibrillation; R07.9 Chest pain, unspecified; R53.83 Other fatigue | CPT/HCPCS: 93225; 93226 ==

== ENCOUNTER → 2024-05-13 | Outpatient (CLI) | payer OTHER, SELFPAY ==
[2024-05-13 12:08] LABS: Absolute Lymphocyte Count 2.03 X10^3/uL (0.83-4.51); Absolute Neutrophil Count 3.6 X10^3/uL (2.0-7.7); Basophil# 0.04 X10^3/uL; Basophil% 0.6 % (0-1); Eosinophils% 1.5 % (0-5); Hematocrit 41.3 % (40-54); Hemoglobin 12.8 g/dL (13.0-16.5); Lymphocyte # 2.03 X10^3/ul (0.83-4.51); Lymphocyte % 31.4 % (19-41); Mean Corpuscular Hgb 30.7 pg (27.0-32.0); Mean Platelet Vol. 9.8 fl (6.2-12.0); Monocyte# 0.65 X10^3/uL; Monocyte% 10.1 % (0-10); NRBC Flagged by Analyzer 0 % (0-5); Neutrophil # 3.62 X10^3/uL (2.7-7.7); Neutrophil % 56.1 % (47-70); Platelet Count 268 K/mm3 (150-450); RBC Distribution Width CV 13.9 % (11.6-14.6); RBC Distribution Width SD 50.7 fl (35.1-43.9); Red Blood Count 4.17 M/mm3 (4.6-6.2); White Blood Count 6.5 K/mm3 (4.4-11.0)
[2024-05-13 14:45] LABS: ALB/GLOB Ratio 1.2 RATIO (0.9-2.4); AST(SGOT) 16 U/L (15-37); Alanine Aminotransfer ALT/SGPT 12 U/L (16-61); Albumin, Serum 3.6 g/dL (3.2-5.0); Alkaline Phosphatase 115 U/L (45-117); Anion Gap 2 (5-15); BUN 21 mg/dL (7-18); BUN/Creat Ratio 26.1 RATIO (10-20); Calcium,Total 8.6 mg/dL (8.5-10.1); Chloride 107 mmol/L (98-107); Cholesterol 160 mg/dL (200); EST Glomerular Filtration Rate 100 mL/min (>60); Est Glom Filt Rate - Afr Amer 121 mL/min (>60); Ferritin 109 ng/mL (26-388); Glucose 84 mg/dL (74-106); High Density Lipoprotein 37 mg/dL; Iron 80 ug/dL (65-175); Iron Binding Capacity,Total 279 ug/dL (250-450); Magnesium 2.1 mg/dL (1.6-2.6); PERCENT IRON SATURATION 28.7 % (15.0-55.0); Potassium 4.2 mmol/L (3.5-5.1); Protein, Total 6.6 g/dL (6.4-8.2); Sodium Level 139 mmol/L (136-145); T4 Free Direct 1.45 ng/dL (0.76-1.46); Thyroid Stim Hormone (TSH) 0.88 uIU/mL (0.358-3.74); Triglycerides 219 mg/dL; Very Low Density Lipoprotein 44 mg/dL (5-40)
== END | disposition home or self-care (01) ==
LOC: MFPLAB 09:27
PROVIDERS: PCP Family Medicine; Visit Provider Family Medicine
DX: I10 Essential (primary) hypertension (principal); I48.91 Unspecified atrial fibrillation; E03.9 Hypothyroidism, unspecified; E61.1 Iron deficiency
CPT/HCPCS: 36415; 80053; 80061; 82728; 83540; 83550; 83735; 84439; 84443; 85025

== ENCOUNTER → 2024-05-21 | Outpatient (CLI) | payer OTHER, SELFPAY ==
--- NOTE | 2024-05-21 07:26 | ECHOD_ITS ---
Reason For Study: SOB Procedure This was a 2D Doppler, Color Flow transthoracic echocardiogram. Exam performed in department. Left Ventricle Normal LV size. Left ventricular systolic function is normal. The left ventricular ejection fraction is 65 %. Stage 1 diastolic dysfunction. No regional wall motion abnormalities noted. Right Ventricle Normal RV size. Normal systolic function. Atria Normal left atrium. Normal right atrium. Mitral Valve Normal mitral valve. Tricuspid Valve Normal tricuspid valve. Mild tricuspid valve insufficiency. Aortic Valve Trisinus/trileaflet aortic valve. Pulmonic Valve Normal pulmonic valve. Great Vessels Mildly dilated aortic root. The pulmonary artery is normal size. Normal inferior vena cava. Pericardium/Pleural No pericardial effusion. MMode/2D Measurements & Calculations LVIDd: 5.2 cm IVSd: 1.2 cm LVOT diam: 2.2 cm LVIDs: 3.2 cm LVPWd: 1.1 cm LVOT area: 3.9 cm2 RVDd: 3.9 cm FS: 39.5 % LAV(MOD-bp): 51.5 ml LVAd ap4: 35.0 cm2 SV(MOD-sp4): 78.2 ml LAV(MOD-bp) Indexed: 22.1 ml/m2 LVLd ap4: 8.4 cm LAV(MOD-sp2): 65.1 ml EDV(MOD-sp4): 121.7 ml LAV(MOD-sp4): 32.7 ml EDV(sp4-el): 123.4 ml LVAs ap4: 18.6 cm2 LVLs ap4: 6.9 cm ESV(MOD-sp4): 43.6 ml ESV(sp4-el): 42.6 ml EF(MOD-sp4): 64.2 % EF(sp4-el): 65.5 % SV(sp4-el): 80.8 ml LA A4 area: 13.7 cm2 LA dimension(2D): 3.4 cm RA A4 area: 17.7 cm2 TAPSE: 2.2 cm Time Measurements MV dec time: 0.23 sec Doppler Measurements & Calculations MV E max cristiano: 54.5 cm/sec Med Peak E' Cristiano: 6.8 cm/sec MV V2 max: 69.2 cm/sec MV A max cristiano: 58.2 cm/sec E/E' med: 8.0 MV max P.9 mmHg MV E/A: 0.94 MV V2 mean: 33.8 cm/sec MV mean P.53 mmHg MV V2 VTI: 29.9 cm MVA(VTI): 3.6 cm2 MV dec slope: 234.0 cm/sec2 Ao V2 max: 123.9 cm/sec LV V1 max: 111.5 cm/sec Ao max P.1 mmHg LV V1 max P.0 mmHg Ao V2 mean: 82.9 cm/sec LV V1 mean P.5 mmHg Ao mean P.2 mmHg LV V1 mean: 72.8 cm/sec Ao V2 VTI: 31.1 cm LV V1 VTI: 27.2 cm AV (velocity ratio): 0.87 KASSI(I,D): 3.4 cm2 KASSI(V,D): 3.5 cm2 SV(LVOT): 106.9 ml PA V2 max: 76.2 cm/sec TR max cristiano: 179.9 cm/sec PA max PG (full): 1.2 mmHg TR max P.0 mmHg ECHO/Echo Complete Interpretation Summary Normal LV size. Left ventricular systolic function is normal. The left ventricular ejection fraction is 65 %. Stage 1 diastolic dysfunction. Mildly dilated aortic root. Ordering Physician: Zana Donnelly Referring Physician: Zana Donnelly Performed By: Abbey Deluca and Student
--- NOTE | 2024-05-24 08:05 | STRESSREP ---
Stress Test Report Date: 05/21/2024 Procedure: Pharmacologic stress nuclear imaging study Indications: Arrhythmia Consent: Per the patient Procedure: The patient underwent pharmacologic (Regadenoson 0.4mg ) evaluation with a peak heart rate of 67 beats per minute (44%predicted maximal heart rate) and a peak blood pressure of 122/72 mmHg. The baseline ECG demonstrated sinus rhythm. The peak pharmacologic ECG demonstrated no ischemic changes. There were no cardiac dysrhythmias pretest, during pharmacologic infusion, or recovery. There was no complaint of chest discomfort during pharmacologic infusion or recovery. The patient was injected with 15.0 millicuries of technetium 99m Cardiolite and subsequently rest SPECT Cardiolite nuclear imaging was obtained in the horizontal long, vertical long, and short axis views. The patient underwent pharmacologic (Regadenoson) evaluation. The patient was injected with 44.9 millicuries of technetium 99m Cardiolite and subsequently stress SPECT Cardiolite nuclear imaging was obtained in the horizontal long, vertical long, and short axis views. A gated Cardiolite study at peak stress was obtained. The examination was stopped secondary to completion of protocol. Rest and stress SPECT Cardiolite nuclear imaging status post realignment, normalization, and attenuation correction demonstrate no fixed or reversible perfusion defects. There is end systolic thickening and brightening. The gated Cardiolite study demonstrates myocardial thickening and inward wall motion. The reported LVEF is 66%. Impression: 1. Pharmacologic (Regadenoson) evaluation 2. Peak pharmacologic ECG with no ischemic changes. 3. There were no cardiac dysrhythmias pretest, during pharmacologic infusion, or recovery. 5. Rest and stress SPECT Cardiolite nuclear imaging demonstrate relative uniform tracer uptake and myocardial perfusion appearing within normal limits. 6. The gated Cardiolite study reports an LVEF of 66%. This note was generated with [employer] software. It may contain incorrect words, spelling, and punctuation that were not noted in checking the note before signing.
== END | disposition home or self-care (01) ==
PROVIDERS: PCP Family Medicine; Referring Provider Nurse Practitioner Family; Visit Provider Nurse Practitioner Family
DX: R53.83 Other fatigue (principal); I48.0 Paroxysmal atrial fibrillation; R06.09 Other forms of dyspnea; R07.9 Chest pain, unspecified
CPT/HCPCS: 78452; 93017; 93306; A9500; A4216; J2785

== ENCOUNTER → 2024-05-29 | Outpatient (CLI) | payer OTHER, SELFPAY ==
[2024-05-31 15:05] LABS: Vitamin B12 419 pg/mL (211-911)
[2024-06-06 03:06] LABS: Free Kappa Light Chains 15.1 mg/L (3.3-19.4); Free Lambda Light Chains 11.7 mg/L (5.7-26.3); Vitamin B1, Thiamine 135.3 nmol/L (66.5-200.0)
== END | disposition home or self-care (01) ==
LOC: LAB 08:04
PROVIDERS: PCP Family Medicine; Referring Provider Psychiatry & Neurology Neurology; Visit Provider Psychiatry & Neurology Neurology
DX: G62.9 Polyneuropathy, unspecified (principal)
CPT/HCPCS: 36415; 82607; 82746; 83883; 84425

== ENCOUNTER → 2024-06-14 | Outpatient (CLI) | payer OTHER, SELFPAY ==
--- NOTE | 2024-06-14 09:41 | MRI_ITS ---
EXAM: MR HEAD WITHOUT AND WITH INTRAVENOUS CONTRAST CLINICAL INDICATION: Parkinson''s disease TECHNIQUE: Multiplanar and multisequence MR images of the brain were obtained without and with intravenous contrast. CONTRAST: CLARISCAN 20ML IV COMPARISON: CT head, 06/15/2022 and MRI brain, 01/20/2022. FINDINGS: BRAIN AND EXTRA-AXIAL SPACES: Normal morphology and signal within the brainstem. There is no restricted diffusion to indicate recent infarct or other pathology. There is no intracranial mass, mass effect, or shift of midline structures. There is no acute intracranial hemorrhage or pathologic extra-axial. There is mild global parenchymal volume loss with commensurate enlargement of the ventricles and the sulcal spaces. No pathologic parenchymal mineralization. No hydrocephalus. Patent basal cisterns. No pathologic parenchymal or meningeal enhancement. Posterior fossa structures are unremarkable. SELLA: No significant abnormality. Normal sella turcica, pituitary gland, infundibular stalk, optic chiasm and hypothalamus. AUDITORY SYSTEM: No significant abnormality. The internal auditory canals are patent. BONES/JOINTS: No significant abnormality. No discrete lytic or blastic abnormalities. SINUSES: Normal as visualized. Clear. MASTOID AIR CELLS: Normal as visualized. Clear. ORBITS: Bilateral ocular lens extraction presumptively for the treatment of cataracts. Apparent silicone implant in the left ocular globe. VASCULATURE: Normal as visualized. Normal flow voids in the major intracranial circulation. MRI/Brain W/WO Contrast IMPRESSION: No acute intracranial abnormality. Age-appropriate global parenchymal volume loss. Electronically Signed: Jonnie Baez DO at 11:10 EDT ,
== END | disposition home or self-care (01) ==
LOC: MRI 09:31
PROVIDERS: PCP Family Medicine; Referring Provider Psychiatry & Neurology Neurology; Visit Provider Psychiatry & Neurology Neurology
DX: G20.A1 Parkinson's disease without dyskinesia, without mention of fluctuations (principal)
CPT/HCPCS: 70553; A9575

== ENCOUNTER 2024-06-16 10:24 | Emergency (ER) | payer OTHER, SELFPAY ==
[2024-06-16 10:25] VITALS: BP 108/84; PULSE 56; RESP 18; TEMP 36.4; O2SAT 100; BMI 31.3
--- NOTE | 2024-06-16 11:14 | CT_ITS ---
STUDY: CT BRAIN WITHOUT CONTRAST REASON FOR EXAM: Male, 74 years old. History of fall. Patient is on anticoagulants. RADIATION DOSAGE (If Supplied By Facility): CTDIvol = ( 44.99 ) mGy, DLP = ( 863.60 ) mGycm TECHNIQUE: Transaxial CT imaging of the brain was performed without administration of intravenous contrast material. Individualized dose optimization techniques were used for this CT. COMPARISON: Comparison is made with prior study dated June 15, 2022. FINDINGS: Normal soft tissue structures. Normal calvarium. There is mild cerebral atrophy with widening of the extra-axial spaces and ventricular dilatation. There are areas of decreased attenuation within the white matter tracts of the supratentorial brain, consistent with microvascular disease changes. Normal basal ganglia and thalami. Normal brainstem. There is mild cerebellar atrophy. There is no intracranial hemorrhage. There are no findings of an acute ischemic infarction. Atherosclerotic calcification of the vertebral arteries and cavernous portions of the internal carotid arteries bilaterally. Mucosal thickening of the ethmoid sinuses. The left globe is dense. Stable examination. CT/Brain/Head without Contrast IMPRESSION: Chronic involutional changes of the brain. Electronically Signed: Og Esquivel MD at 11:43 EDT ,
--- NOTE | 2024-06-16 11:19 | EX.ED.GENINJ ---
HPI History of Present Illness Chief Complaint: Fall Informant: patient Narrative Narrative: Patient is a 74-year-old male with history of atrial fibrillation, on Eliquis, GERD, legally blind, hypertension, hyperlipidemia and Parkinson's disease presenting for evaluation after fall. Patient had a fall 2 days ago. He states he was walking in a toy wagon was moved to a spot is not usually and he tripped over it. He fell striking his right jaw, landing on his right side and his bilateral knees. He did not lose consciousness. He really did not think too much of other injuries but was at appointment for his eye doctor today and they recommend he come to the ER to be evaluated as he is on anticoagulation. He is currently complaining of mild bilateral knee pain and moderate right-sided rib pain. Does have small abrasion/laceration over the right cheek/jaw area that is no longer bleeding. Denies any headache, numbness, tingling, acute vision changes or weakness. No other complaints or concerns reported at this time. Did take Tylenol earlier this morning. [facility] Medical History Abdominal ultrasound, abnormal Syncopal episodes Chest pain Atrial fibrillation custodial current use of amiodarone HTN (hypertension) Parkinson's disease Chronic anxiety Kidney stones Migraines Wears glasses Anxiety Prostate disease Bladder disease Non-smoker History of stress test Hypertension Stage 2 moderate COPD by GOLD classification Obesity (BMI 30-39.9) Obstructive Sleep Apnea-Hypopnea Syndrome Cataract fragments in both eyes following surgery GERD (gastroesophageal reflux disease) BPH (benign prostatic hyperplasia) Parkinsons Hypothyroidism Glaucoma Home Medications ?Medication ?Instructions ?Recorded ?Last Taken ?Type multivitamin 3 tab PO DAILY Supplement 11/19/19 11/18/19 History acetaminophen 500 mg tablet 1,000 mg PO Q8 PRN Check with 09/13/22 Unknown History primary doctor lisinopril 5 mg tablet 5 mg PO DAILY BP #180 tabs 07/29/23 Unknown Rx albuterol sulfate 90 mcg/actuation 2 puff inhalation Q4H PRN 09/22/23 Unknown Rx aerosol inhaler (Ventolin HFA) shortness of breath or wheezing #18 grams escitalopram oxalate 20 mg tablet 20 mg PO DAILY 01/28/24 Unknown History lactobacillus combination no.9 4 4,000 mmu cells PO DAILY 01/28/24 Unknown History billion cell capsule (Adult 50 Plus Probiotic) magnesium 250 mg tablet 250 mg PO DAILY 01/28/24 Unknown History quetiapine 25 mg tablet 12.5 mg PO QHS 01/28/24 Unknown History famotidine 40 mg tablet 40 mg PO DAILY 03/26/24 Unknown History levothyroxine 112 mcg tablet 112 mcg PO DAILY 03/26/24 Unknown History (Synthroid) omeprazole 40 mg capsule,delayed 40 mg PO DAILY 03/26/24 Unknown History release omeprazole 40 mg capsule,delayed 40 mg PO QDAY #30 caps 04/01/24 Unknown Rx release amiodarone 200 mg tablet 200 mg PO DAILY #90 tabs 05/17/24 Unknown Rx apixaban 5 mg tablet (Eliquis) 5 mg PO BID #180 tabs 05/17/24 Unknown Rx metoprolol tartrate 25 mg tablet 25 mg PO BID 90 days #180 tabs 05/17/24 Unknown Rx benztropine 0.5 mg tablet 0.5 mg PO DAILY #30 tabs 05/26/24 Unknown Rx carbidopa ER 48.75 mg-levodopa 195 3 cap PO .4 times daily SHAKES 05/26/24 Unknown Rx mg capsule,extended release #360 caps (Rytary) carbidopa ER 50 mg-levodopa 200 mg 1 tab PO QHS #30 tabs 05/26/24 Unknown Rx tablet,extended release Allergy/AdvReac Type Severity Reaction Status Date / Time varicella virus vaccine live AdvReac Mild Swelling Verified 06/16/24 10:25 (From Varivax (PF)) Family History Father Cancer Esophageal Diabetes VTE (venous thromboembolism) Multiple blood clots every time he went into the hospital. Pt can not recall whether the blood clots started before or after he was diagnosed with esophageal CA. Mother Diabetes Other COPD (chronic obstructive pulmonary disease) Surgical History S/P TURP History of open reduction and internal fixation (ORIF) procedure History of eye surgery Hx of colonoscopy Hx of bladder repair surgery History of thyroidectomy, subtotal Fusion of lumbar spine Social History household members: spouse and other details: Spouse's name is Ludy. 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 Smoking Status: Never smoker alcohol intake: never substance use type: does not use ROS ROS ED Constitutional Constitutional ED: Denies chills or fever(s) Eyes Eyes: Reports other Details: Patient legally blind ; Denies change in vision ENT ENT ED: Denies ear pain or sore throat Cardiovascular Cardiovascular: Reports chest pain; Denies palpitations or racing heartbeat Respiratory/Chest Respiratory/Chest: Denies cough or dyspnea Gastrointestinal Gastrointestinal: Denies nausea or vomiting Musculoskeletal Musculoskeletal: Reports other Details: Bilateral knee pain ; Denies back pain, myalgias or neck pain Integumentary Reports Abrasions Neurologic Neurologic: Denies headache(s), paresthesias or weakness Hematologic/Lymphatic Hematologic/Lymphatic: Reports easy bleeding and other Details: On Eliquis EXAM Physical Exam Const Vital Signs: 06/16/24 10:25 06/16/24 10:32 06/16/24 12:25 Temperature 97.6 F L 97.8 F Temperature Source Temporal Temporal Pulse Rate 56 L 78 Respiratory Rate 18 16 Respiratory Effort Normal Respiratory Depth Normal Respiratory Pattern Normal Blood Pressure 108/84 H 126/76 H Blood Pressure Mean 92 92 Pulse Ox 100 98 Oxygen Delivery Method Room Air Room Air Room Air Positive well nourished and well developed General Appearance ED: well developed and NAD HEENT Reports TM's clear HEENT Narrative: No malocclusion. No soft tissue swelling noted of the jaw. No cephalhematoma present. There is a 1 cm scabbed over abrasion/superficial laceration to the right cheek that appears to be healing. Nose: Negative for septum abnormal Tympanic Membrane ED: Yes TM's clear Eyes EOMs intact bilaterally General Eye ED: Yes other Other Details: Pupils mildly dilated however patient was just at the eye doctor and received dilating eyedrops. Ptosis of the left eyelid compared to the right. Patient states this is chronic from a prior surgery. Neck full ROM General: Negative for tenderness Chest Wall Chest Narrative: Superficial abrasion over the right anterior chest wall approximate the level of the fourth rib. There is associated tenderness to palpation of the ribs. No chest wall crepitus appreciated. No flail chest or obvious deformity Resp normal respiratory effort and clear to auscultation bilaterally Cardio regular rhythm Rate: regular rate GI normal to inspection, nondistended, normoactive bowel sounds and non-tender Back/Spine normal to inspection and no thoracic nor lumbar tenderness Extremity normal to inspection and full ROM Extremity Narrative: Mild abrasions over the bilateral knees. Normal range of motion of the knees. No pinpoint bony tenderness. No effusion appreciated. Neuro oriented x3, CN's II-XII intact bilaterally, moves all extremities, no focal motor deficits and no sensory deficits noted Neuro Narrative: Subtle asymmetry of the face however normal movement of the face. Woodruff Coma Scale: document GCS findings Spontaneous Obeys Commands Oriented 15 Sensorium / Orientation: alert Motor Exam: strength 5/5 throughout Psych mental status grossly normal and thought process normal Skin Skin Narrative: Scattered abrasions on the right hand, knees consistent with his recent fall. MDM MDM MDM Narrative Medical decision making narrative: Patient evaluated for injuries after mechanical fall that occurred a couple days ago. He appears nontoxic. Does have some superficial abrasions. No obvious bony deformity. As he does have signs of head injury and is on Eliquis I will obtain head CT. Does not have any neck tenderness normal range of motion of the neck so do not think requires C-spine CT. Additionally does have some chest wall tenderness which suspect is more from associated soft tissue injury but will obtain x-ray of the right ribs. X-ray viewed by myself as well as radiology does not show any acute fracture. I do not the patient requires extended monitoring and has been stable at home for the past few days and be discharged back home. Instructed to continue taking Tylenol as needed for pain. Given return precautions. Discharged home with return instructions as needed. Radiography Diagnostic Testing: Clinical Impression(s) from Imaging Studies Brain CT 06/16/24 11:14 IMPRESSION: Chronic involutional changes of the brain. Electronically Signed: Og Esquivel MD at 11:43 EDT , Ribs w/Chest X-Ray 06/16/24 11:36 IMPRESSION: RIBS: Normal x-ray examination of the ribs. CHEST: Hyperinflation. The lungs are clear. Electronically Signed: Og Esquivel MD at 11:48 EDT , Discharge Plan Triage Chief Complaint: Fall ED Provider: Gisselle Dockery Dx/Rx/DC Orders Clinical Impression: Abrasion, Anticoagulant long-term use, Chest wall contusion, Contusion of jaw Instructions: ED Abrasion, ED Bruise, Rib, ED Fall Prevention Prescriptions: No Action quetiapine 25 mg tablet 12.5 mg PO QHS Patient Comments: TAKE 1/2 (ONE-HALF) TABLET BY MOUTH ONCE DAILY AT BEDTIME magnesium 250 mg tablet 250 mg PO DAILY escitalopram oxalate 20 mg tablet 20 mg PO DAILY Adult 50 Plus Probiotic 4 billion cell capsule 4,000 mmu cells PO DAILY Rx Instructions: administer with a meal Rytary 48.75-195 mg capsule, extended release 3 cap PO .4 times daily Qty: 360 5RF benztropine 0.5 mg tablet 0.5 mg PO DAILY Qty: 30 5RF carbidopa-levodopa 50-200 mg tablet extended release 1 tab PO QHS Qty: 30 5RF omeprazole 40 mg capsule,delayed release(DR/EC) 40 mg PO QDAY Qty: 30 4RF Rx Instructions: swallow whole; do not crush, chew, dissolve, cut, break--Take at night if you take thyroid med in AM or opposite omeprazole 40 mg capsule,delayed release(DR/EC) 40 mg PO DAILY famotidine 40 mg tablet 40 mg PO DAILY levothyroxine [Synthroid] 112 mcg tablet 112 mcg PO DAILY multivitamin 1 EACH tablet 3 tab PO DAILY acetaminophen 500 mg tablet 1,000 mg PO Q8 PRN (Reason: Check with primary doctor) lisinopril 5 mg tablet 5 mg PO DAILY Qty: 180 3RF albuterol sulfate [Ventolin HFA] 90 mcg/actuation HFA aerosol inhaler 2 puff inhalation Q4H PRN (Reason: shortness of breath or wheezing) Qty: 18 6RF amiodarone 200 mg tablet 200 mg PO DAILY Qty: 90 3RF Eliquis 5 mg tablet 5 mg PO BID Qty: 180 3RF metoprolol tartrate 25 mg tablet 25 mg PO BID 90 Days Qty: 180 3RF Primary Care Provider: Zana Vásquez Referrals: Zana Vásquez MD [Primary Care Provider] - Activity Restrictions/Additional Instructions: Your imaging did not show any skull fracture, bleeding around the brain or rib fractures. You can continue take Tylenol as needed for pain. Lidoderm patches may be helpful for chest wall pain. You can continue taking your blood thinner. Return to the ER if you have a progression, worsening of your symptoms or further concerns. Print Language: Hungarian Disposition Disposition: Home, Self Care Discharge Date/Time: 06/16/24 12:31
[2024-06-16] MEDS: Acetaminophen 500 MG Tablet PO (11:24)
--- NOTE | 2024-06-16 11:36 | RAD_ITS ---
STUDY: X-RAY - UNILATERAL RIBS ( RIGHT ) WITH CHEST REASON FOR EXAM: Male, 74 years old. Right-sided anterior rib pain following a fall. TECHNIQUE - RIBS: 4 view(s) of the ribs. TECHNIQUE - CHEST: Single PA view of the chest. COMPARISON: None. FINDINGS - RIBS: Normal visualized ribs without a demonstrated fracture. FINDINGS - CHEST: Hyperinflation. The lungs are clear. There is no demonstrated pleural abnormality. Normal size heart. Normal mediastinum and lazara. Normal visualized pulmonary arteries. There is atherosclerotic tortuosity of the aortic arch and descending thoracic aorta. Normal visualized thoracic spine. Normal visualized ribs, clavicles, and shoulders. There is no demonstrated abnormality of the visualized soft tissue structures of the upper abdomen. RAD/Ribs Uni Min 3V w/PA Chest IMPRESSION: RIBS: Normal x-ray examination of the ribs. CHEST: Hyperinflation. The lungs are clear. Electronically Signed: Og Esquivel MD at 11:48 EDT ,
[2024-06-16 12:25] VITALS: BP 126/76; PULSE 78; RESP 16; TEMP 36.6; O2SAT 98
== END 2024-06-16 12:31 | disposition home or self-care (01) ==
PROVIDERS: Emergency Provider Emergency Medicine; PCP Family Medicine; Visit Provider Emergency Medicine
DX: S20.211A Contusion of right front wall of thorax, initial encounter (principal); G20.A1 Parkinson's disease without dyskinesia, without mention of fluctuations; I48.91 Unspecified atrial fibrillation; S00.83XA Contusion of other part of head, initial encounter; S00.81XA Abrasion of other part of head, initial encounter; S60.511A Abrasion of right hand, initial encounter; S80.211A Abrasion, right knee, initial encounter; S80.212A Abrasion, left knee, initial encounter; W01.0XXA Fall on same level from slipping, tripping and stumbling without subsequent striking against object, initial encounter; Y93.01 Activity, walking, marching and hiking; I10 Essential (primary) hypertension; H54.8 Legal blindness, as defined in USA; Z79.01 Long term (current) use of anticoagulants; Z79.899 Other long term (current) drug therapy
CPT/HCPCS: 70450; 71101; 99282

== ENCOUNTER → 2024-09-17 | Outpatient (CLI) | payer OTHER, SELFPAY ==
[2024-09-17 12:13] LABS: Absolute Lymphocyte Count 2.07 X10^3/uL (0.83-4.51); Absolute Neutrophil Count 4.7 X10^3/uL (2.0-7.7); Basophil# 0.04 X10^3/uL; Basophil% 0.5 % (0-1); Eosinophil# 0.09 X10^3/uL; Eosinophils% 1.2 % (0-5); Hematocrit 41.9 % (40-54); Lymphocyte # 2.07 X10^3/ul (0.83-4.51); Lymphocyte % 27.1 % (19-41); Mean Corpuscular Hgb 30.7 pg (27.0-32.0); Mean Corpuscular Volume 99.1 fL (80-94); Mean Platelet Vol. 9.1 fl (6.2-12.0); Monocyte# 0.68 X10^3/uL; Monocyte% 8.9 % (0-10); NRBC Flagged by Analyzer 0 % (0-5); Neutrophil # 4.74 X10^3/uL (2.7-7.7); Neutrophil % 61.9 % (47-70); Platelet Count 328 K/mm3 (150-450); RBC Distribution Width SD 50.6 fl (35.1-43.9); Red Blood Count 4.23 M/mm3 (4.6-6.2); White Blood Count 7.7 K/mm3 (4.4-11.0)
[2024-09-17 13:00] LABS: ALB/GLOB Ratio 1.1 RATIO (0.9-2.4); AST(SGOT) 13 U/L (15-37); Alanine Aminotransfer ALT/SGPT 10 U/L (16-61); Albumin, Serum 3.5 g/dL (3.2-5.0); Alkaline Phosphatase 79 U/L (45-117); Anion Gap 3 (5-15); BUN 14 mg/dL (7-18); BUN/Creat Ratio 17.8 RATIO (10-20); Calcium,Total 8.8 mg/dL (8.5-10.1); Chloride 107 mmol/L (98-107); Cholesterol 148 mg/dL (200); Creatinine, Serum 0.79 mg/dL (0.70-1.30); EST Glomerular Filtration Rate 103 mL/min (>60); Est Glom Filt Rate - Afr Amer 124 mL/min (>60); Ferritin 107 ng/mL (26-388); Globulin 3.1 g/dL (2.2-4.2); Glucose 90 mg/dL (74-106); High Density Lipoprotein 34 mg/dL; Iron 81 ug/dL (65-175); Iron Binding Capacity,Total 282 ug/dL (250-450); PERCENT IRON SATURATION 28.7 % (15.0-55.0); Potassium 4.2 mmol/L (3.5-5.1); Protein, Total 6.6 g/dL (6.4-8.2); Sodium Level 139 mmol/L (136-145); T4 Free Direct 1.48 ng/dL (0.76-1.46); Thyroid Stim Hormone (TSH) 0.782 uIU/mL (0.358-3.740); Triglycerides 313 mg/dL; Very Low Density Lipoprotein 63 mg/dL (5-40)
== END | disposition home or self-care (01) ==
LOC: MFPLAB 10:33
PROVIDERS: PCP Family Medicine; Visit Provider Family Medicine
DX: I10 Essential (primary) hypertension (principal); I48.91 Unspecified atrial fibrillation; E61.1 Iron deficiency; E03.9 Hypothyroidism, unspecified
CPT/HCPCS: 36415; 80053; 80061; 82728; 83540; 83550; 83735; 84439; 84443; 85025

== ENCOUNTER 2024-12-22 08:37 | Outpatient (RCR) | payer OTHER, SELFPAY ==
[2024-12-22 09:17] VITALS: BP 148/83; PULSE 62; RESP 18; TEMP 35.9; BMI 30.5
--- NOTE | 2024-12-22 09:49 | HP.PCM_ITS ---
History of Present Illness Date of Service: 12/22/24 Chief Complaint: Follow-up on his right buttocks shearing stage II decubitus ulcer. History of Wound: 74-year-old white male history of Parkinson's A-fib that does a lot of sitting during the day while his is at work. And he moves from chair to chair and he has a tendency with the Parkinson's to wiggle in his back and forth when he is having an episode of Parkinson's in a chair. His reminds him not to do that. He sleeps in bed most of the night but then gets up and sleeps in his recliner. He is currently on some new Parkinson medication called Nourianz which is exact mechanism of of action is unknown it antagonizes the adenosine a 2A receptors. He is also on amantadine and carbidopa and levodopa. He is also on Eliquis and amiodarone for his A-fib. [facility] Medical History Fatigue Legally blind Depression Thyroid disease Back pain BiPAP (biphasic positive airway pressure) dependence COPD (chronic obstructive pulmonary disease) History of echocardiogram History of irregular heartbeat Abdominal ultrasound, abnormal Syncopal episodes Chest pain Atrial fibrillation retirement current use of amiodarone HTN (hypertension) Parkinson's disease Chronic anxiety Kidney stones Migraines Wears glasses Anxiety Prostate disease Bladder disease Non-smoker History of stress test Hypertension Obesity (BMI 30-39.9) Obstructive Sleep Apnea-Hypopnea Syndrome Cataract fragments in both eyes following surgery GERD (gastroesophageal reflux disease) BPH (benign prostatic hyperplasia) Parkinsons Hypothyroidism Glaucoma Home Medications ?Medication ?Instructions ?Recorded ?Last Taken ?Type multivitamin 2 tab PO DAILY Supplement 11/19/19 11/18/19 History acetaminophen 500 mg tablet 1,000 mg PO Q8 PRN Check with 09/13/22 Unknown History primary doctor albuterol sulfate 90 mcg/actuation 2 puff inhalation Q4H PRN 09/22/23 Unknown Rx aerosol inhaler (Ventolin HFA) shortness of breath or wheezing #18 grams magnesium 250 mg tablet 250 mg PO DAILY 01/28/24 Unknown History levothyroxine 112 mcg tablet 112 mcg PO DAILY 03/26/24 Unknown History (Synthroid) amiodarone 200 mg tablet 200 mg PO DAILY #90 tabs 05/17/24 Unknown Rx apixaban 5 mg tablet (Eliquis) 5 mg PO BID #180 tabs 05/17/24 Unknown Rx lisinopril 5 mg tablet 5 mg PO DAILY BP #90 tabs 06/18/24 Unknown Rx dicyclomine 10 mg capsule 10 mg PO 4X/DAY PRN stomach 07/29/24 Unknown History metoprolol tartrate 25 mg tablet 12.5 mg (1/2 x 25 mg) PO BID 90 07/29/24 Unknown Rx days #90 tabs istradefylline 20 mg tablet 20 mg PO QDAY #30 tabs 10/07/24 Unknown Rx (Nourianz) benztropine 1 mg tablet 1 mg PO BID #60 tabs 11/02/24 Unknown Rx carbidopa ER 48.75 mg-levodopa 195 2 cap PO .4 times daily SHAKES 11/02/24 Unknown Rx mg capsule,extended release #240 caps (Rytary) carbidopa ER 50 mg-levodopa 200 mg 1 tab PO QHS #30 tabs 11/02/24 Unknown Rx tablet,extended release mirtazapine 15 mg tablet 15 mg PO QHS #30 tabs 11/18/24 Unknown Rx sodium sul 1.479 gram-potas ch See Rx Instructions PO PER PKG DIR 11/25/24 Unknown Rx 0.188 gram-magnes sul 0.225 gram #24 tabs tablet (Sutab) amantadine HCl 100 mg capsule 100 mg PO DAILY 12/22/24 Unknown History Allergy/AdvReac Type Severity Reaction Status Date / Time varicella virus vaccine live AdvReac Mild Swelling Verified 11/02/24 14:32 (From Varivax (PF)) Family History Father Cancer Esophageal Diabetes VTE (venous thromboembolism) Multiple blood clots every time he went into the hospital. Pt can not recall whether the blood clots started before or after he was diagnosed with esophageal CA. Mother Diabetes Other COPD (chronic obstructive pulmonary disease) Surgical History S/P TURP History of open reduction and internal fixation (ORIF) procedure History of eye surgery Hx of colonoscopy Hx of bladder repair surgery History of thyroidectomy, subtotal Fusion of lumbar spine Social History household members: spouse and other details: Spouse's name is Ludy. 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 Smoking Status: Never smoker alcohol intake: never substance use type: does not use ROS Constitutional Constitutional: Reports systems reviewed and no addt'l complaints, except as documented Eyes Eyes: Reports systems reviewed and no addt'l complaints, except as documented ENT HEENT: Reports systems reviewed and no addt'l complaints, except as documented Cardiovascular Cardiovascular: Reports systems reviewed and no addt'l complaints, except as documented Respiratory/Chest Respiratory/Chest: Reports systems reviewed and no addt'l complaints, except as documented Gastrointestinal Gastrointestinal: Reports systems reviewed and no addt'l complaints, except as documented Genitourinary Genitourinary: Reports systems reviewed and no addt'l complaints, except as documented Musculoskeletal Musculoskeletal: Reports systems reviewed and no addt'l complaints, except as documented Integumentary Integumentary: Reports wounds and other Details: Right buttocks open wound from shearing stage II decubitus ulcer. A stage I decubitus ulcer on the left buttocks just reddened Neurologic Neurologic: Reports systems reviewed and no addt'l complaints, except as documented Psychiatric Psychiatric: Reports systems reviewed and no addt'l complaints, except as documented Endocrine Endocrinology: Reports systems reviewed and no addt'l complaints, except as doc umented Hematologic/Lymphatic Hematologic/Lymphatic: Reports systems reviewed and no addt'l complaints, except as documented Allergic/Immunologic Allergic/Immunologic: Reports systems reviewed and no addt'l complaints, except as documented Vital Signs Vital Signs Vital Signs: 12/22/24 09:17 Temperature 96.7 F L Temperature Source Temporal Pulse Rate 62 Respiratory Rate 18 Blood Pressure 148/83 H Blood Pressure Mean 104 Blood Pressure Source Monitor Blood Pressure Position Semi-Fowlers Blood Pressure Location Left Arm Weight Weight: 225 lb Body Mass Index (BMI) 30.5 Physical Exam Const oriented x3 General Appearance: cooperative Exam Limitations: no limitations HEENT normocephalic Head and Scalp: normal to inspection Face and Sinus: normal facial exam Nose: external nose normal General Ear: hearing grossly impaired External Ear: external ears normal Resp normal respiratory effort Effort and Inspection: able to speak in complete sentences Auscultation: clear to auscultation bilaterally Cardio regular rate and regular rhythm Palpation: normal PMI Rate: regular rate Rhythm: regular rhythm GI Auscultation: normoactive bowel sounds Palpation: soft and no hepatosplenomegaly Back/Spine Cervical Spine: cervical ROM normal Thoracic Spine / Upper Back: normal to inspection Lumbar Spine / Lower Back: normal to inspection Extremity normal to inspection General Extremity: normal exam except as noted Skin Wounds: wounds noted Wound Narrative: Right buttocks decubitus ulcer stage II from shearing. Left buttocks reddened stage I well-demarcated area Hair: male pattern alopecia Neuro oriented x3 Sensorium / Orientation: awake, alert and oriented to person Psych Appearance: grossly normal Speech: normal speech Thought Content: normal thought content Judgement: judgement good Debridement Note Debridement Note Wound debrided: Right buttocks decubitus ulcer Laterality: Right Wound Grade/Stage: Stage II Type of Debridement: Excisional debridement Anesthesia Used: 5% Lidocaine Gel Depth: Down to and including healthy tissue and in the subcutaneous layer Instrument Used: 5mm curette Tissue Removed: Devitalized tissue and fibrin Severity: Fat Layer Exposed Amount of bleeding with debridement: Mild Bleeding Controlled with: Compression and gauze Patient tolerated procedure: Patient tolerated procedure well Post-Debridement Measurements and Additional Note: Post-Debridement Measurements/Treatment - Nurse 1 - General Ulcer Assessment Start: 12/22/24 09:09 Freq: Status: Active Protocol: [email or web address] Activity Type Activity Date Activity User E-sign Co-sign Detail Recorded Client Recorded Date Recorded By Document 12/22/24 09:17 [id number] 12/22/24 09:24 12/22/24 09:17 - Today's Visit Information Type of service Initial Visit Arrival Mode Ambulatory Transfer Assistance None Patient Identification Verified (Name & Yes ) Patient Requires Transmission-Based No Precautions Height and Weight Height 6 ft Weight 225 lb Weight in Pounds 225.0 lbs Body Mass Index (BMI) 30.5 BMI Classification Obese BSA - Yuki 2.24 Vital Signs Temperature (97.8 F-99.1 F) 96.7 F L Temperature Source Temporal Pulse Rate (60-100) 62 Pulse Location Monitor Respiratory Rate (12-18) 18 Respiratory rate source Observation Blood Pressure (90/60-120/80) 148/83 H Blood Pressure Mean 104 Source Monitor Position Semi-Fowlers Blood Pressure Location Left Arm History Since Last Visit- (Skip if this is Patient's initial visit) Have you changed medications since your No last visit? Any new allergies or adverse reactions No Had a fall/change in ADL's that may No increase risk of falls Signs or symptoms of abuse and/or No neglect since last visit Have you been in the hospital since your No last visit? Has dressing in place as prescribed Yes Has compression in place as prescribed N/A Has offloadiing in place as prescribed N/A Experienced any changes in pain level or No management Pain Scale: 0-10 Numeric Is Patient Pain Free? No BUTTOCKS -Description Burning -Intensity 2 -Duration (hours) Acute -Pain Behavior Guarding -Pain Aggravating Factors ADL's -Alleviating Factors/Interventions Medication -Effectiveness of Alleviating Factor/ Moderately Intervention effective Communication Assessment Preferred language Citizen Of [place] External Grinder Required No Able to Read Yes Able to Write Yes Communication Tools None Caregiver Communication Skills No Impairment Impairment Right Hearing Abillity Normal Left Hearing Abillity Normal Visual Assistive Devices Glasses Teaching Assessment Preferences Verbal,Written Barriers to Learning None Readiness To Learn Good Willingness to Engage in Self Management Med Activies Readiness to Engage in Self Management Med Activities Anxiety Level Calm Cooperation Cooperative Perception Coherent Interest in Health Problem Asks Questions Education Importance Acknowledges Need Does Patient Smoke tobacco or other No substances Smoking Status Never smoker Is Patient Diabetic No Functional Assessment Recent Decline in Ability to Perform Bathing,Lower Body Dressing, Toileting, Transferring, Upper Body Dressing Assistive Device With Patient Yes Culture/Hindu/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 right buttocks -Combined with other wound No -Current Size (cm) - Length 0.1 -Current Size (cm) - Width 0.1 -Current Size (cm) - Depth 0.1 -Total Square Cm 0.01 -Photo Taken Yes -Tunneling No -Undermining/Tunneling No -Circular Undermining No -Exudate Amt Medium -Exudate Type Serosanguineous -Wound Margin Distinct, Outline Attached -Granulation Amt Medium (34-66%) -Granulation Quality [place] -Slough/Fibrin Yes -Necrosis Amt Medium (34-66%) -Necrotic Tissue Type Adherent Slough -Structure Exposed N/A -Texture (Jessa-wound Skin Appearance) Assessed, Excoriation -Moisture (Jessa-wound Skin Appearance) Assessed -Color (Jessa-wound Skin Appearance) Assessed -Temperature (Jessa-wound Skin No Abnormality Appearance) (Pt Warm) -Tenderness on Palpation (Jessa-wound No Skin Appearance) -Ulcer Cleansing Wound Cleanser -Foul Odor after Cleansing No -Anesthetic Used 5% Lidocaine Gel WC - Nurse 2 - General Ulcer CM Notes Start: 12/22/24 09:09 Freq: Status: Active Protocol: Activity Type Activity Date Activity User E-sign Co-sign Detail Recorded Client Recorded Date Recorded By Document 12/22/24 09:34 [facility] [id number] 12/22/24 09:44 [facility] 12/22/24 09:34 Wound Center Nurse 2 -Time 09:35 -Correct Patient Yes -Correct Side, Site, Position Yes -Correct Procedure Yes -Procedure Performed Yes -Type of Procedure Debridement -Clinical Debridement Subcutaneous -Tissue Removed Subcutaneous -Post Debridement (cm) - Length 2 -Post Debridement (cm) - Width 0.7 -Post Debridement (cm) - Depth 0.2 -Total Square (Post) (cm) 1.4 -Area of Debridement (cm) - Length 2 -Area of Debridement (cm) - Width 0.7 -Total Square (Area) (cm) 1.4 -Tunneling No -Undermining/Tunneling No -Circular Undermining No -Wound/Ulcer Outcome Not Healed -Ulcer Cleansing Rinsed/ Irrigated with Saline -Foul Odor after Cleansing No -Bioengineered Tissue No -Bleeding Controlled with Pressure -Treatment Response Procedure Tolerated Well -Offloading Yes -Type of Offloading Other -Other Type of Offloading RX FOR GEL CUSHION -Debridement - Subq, 1st 20sq cm Yes Pain Scale: 0-10 Numeric Is Patient Pain Free? Yes Lab / Micro Data Attestation: I reviewed the patient's lab results. Lab results narrative: No sign of anemia good kidney functions liver functions shows no sign of malnutrition patient's in good shape no other pressure areas noted elbows knees shoulders back Assessment/Plan Assessment/Plan (1) Decubitus ulcer of right buttock, stage 2: CODE(S): L89.312 - Pressure ulcer of right buttock, stage 2 PLAN: Wash right buttocks with antibacterial soap and water apply Aquacel extra to wound base moistened with Adaptic over top and a Axis foam SAP dressing over top 2 times a day. Apply A&E ointment to the left butt buttocks cheek after every washing or toileting and as needed Patient was given prescription for a gel cushion for his buttocks. To be used in the chair and he is post to try not to use the lounge chair but lay flat in bed or couch and lay [id number]. Patient is encouraged to continue eating well and increase his protein intake to 60 g a day. (2) Parkinson's disease: CODE(S): G20 - Parkinson's disease QUALIFIERS: Dyskinesia presence: unspecified whether dyskinesia Fluctuating manifestations: unspecified whether manifestations fluctuate Qualified Code(s): G20.A1 - Parkinson's disease without dyskinesia, without mention of fluctuations (3) Non-healing ulcer of buttock with fat layer exposed: CODE(S): L98.412 - Non-pressure chronic ulcer of buttock with fat layer exposed
== END 2024-12-29 13:15 | disposition home or self-care (01) ==
LOC: WC 08:37
PROVIDERS: PCP Family Medicine; Referring Provider Family Medicine; Visit Provider Nurse Practitioner
DX: L89.312 Pressure ulcer of right buttock, stage 2 (principal); G20.A1 Parkinson's disease without dyskinesia, without mention of fluctuations; J44.9 Chronic obstructive pulmonary disease, unspecified; I48.91 Unspecified atrial fibrillation; I10 Essential (primary) hypertension; L89.321 Pressure ulcer of left buttock, stage 1; H54.8 Legal blindness, as defined in USA; E03.9 Hypothyroidism, unspecified; N40.0 Benign prostatic hyperplasia without lower urinary tract symptoms; G47.33 Obstructive sleep apnea (adult) (pediatric); Z79.01 Long term (current) use of anticoagulants; Z79.890 Hormone replacement therapy; Z79.899 Other long term (current) drug therapy
CPT/HCPCS: 11042; 99213; G0463

== ENCOUNTER → 2024-12-29 | Outpatient (CLI) | payer OTHER, SELFPAY ==
[2024-12-29 18:02] LABS: Absolute Lymphocyte Count 2.42 X10^3/uL (0.83-4.51); Absolute Neutrophil Count 5.5 X10^3/uL (2.0-7.7); Basophil# 0.07 X10^3/uL; Basophil% 0.8 % (0-1); Eosinophil# 0.16 X10^3/uL; Eosinophils% 1.8 % (0-5); Hematocrit 41.9 % (40-54); Hemoglobin 13.5 g/dL (13.0-16.5); Lymphocyte # 2.42 X10^3/ul (0.83-4.51); Lymphocyte % 26.9 % (19-41); Mean Corp Hgb Conc 32.2 g/dL (32-36); Mean Corpuscular Hgb 31.3 pg (27.0-32.0); Mean Corpuscular Volume 97.2 fL (80-94); Mean Platelet Vol. 9.5 fl (6.2-12.0); Monocyte# 0.79 X10^3/uL; Monocyte% 8.8 % (0-10); NRBC Flagged by Analyzer 0 % (0-5); Neutrophil # 5.54 X10^3/uL (2.7-7.7); Neutrophil % 61.4 % (47-70); Platelet Count 323 K/mm3 (150-450); RBC Distribution Width CV 13.6 % (11.6-14.6); RBC Distribution Width SD 49.2 fl (35.1-43.9); Red Blood Count 4.31 M/mm3 (4.6-6.2)
[2024-12-29 19:19] LABS: ALB/GLOB Ratio 1.1 RATIO (0.9-2.4); AST(SGOT) 15 U/L (15-37); Alanine Aminotransfer ALT/SGPT 13 U/L (16-61); Albumin, Serum 3.7 g/dL (3.2-5.0); Alkaline Phosphatase 75 U/L (45-117); Anion Gap 5 (5-15); BUN 18 mg/dL (7-18); BUN/Creat Ratio 19.9 RATIO (10-20); Calcium,Total 8.8 mg/dL (8.5-10.1); Chloride 107 mmol/L (98-107); EST Glomerular Filtration Rate 88 mL/min (>60); Est Glom Filt Rate - Afr Amer 106 mL/min (>60); Ferritin 90 ng/mL (26-388); Globulin 3.5 g/dL (2.2-4.2); Glucose 99 mg/dL (74-106); Iron 56 ug/dL (65-175); Iron Binding Capacity,Total 308 ug/dL (250-450); Magnesium 2.2 mg/dL (1.6-2.6); Potassium 4.3 mmol/L (3.5-5.1); Protein, Total 7.2 g/dL (6.4-8.2); Sodium Level 140 mmol/L (136-145); T4 Free Direct 1.31 ng/dL (0.76-1.46)
== END | disposition home or self-care (01) ==
LOC: MFPLAB 15:18
PROVIDERS: PCP Family Medicine; Referring Provider Family Medicine; Visit Provider Family Medicine
DX: E03.9 Hypothyroidism, unspecified (principal); I48.91 Unspecified atrial fibrillation; E61.1 Iron deficiency
CPT/HCPCS: 36415; 80053; 82728; 83540; 83550; 83735; 84439; 84443; 85025

== ENCOUNTER → 2025-01-24 | Outpatient (CLI) | payer OTHER, SELFPAY | END | disposition home or self-care (01) | LOC: PSN 10:26 | PROVIDERS: PCP Family Medicine; Referring Provider Family Medicine; Visit Provider Family Medicine | DX: J44.9 Chronic obstructive pulmonary disease, unspecified (principal) | CPT/HCPCS: 94060; 94726; 94729 ==

== ENCOUNTER → 2025-02-04 | Outpatient (CLI) | payer OTHER, SELFPAY | END | disposition home or self-care (01) | LOC: PSN 12:03 | PROVIDERS: PCP Family Medicine; Referring Provider Internal Medicine Cardiovascular Disease; Visit Provider Internal Medicine Cardiovascular Disease | DX: I48.0 Paroxysmal atrial fibrillation (principal) | CPT/HCPCS: 93225; 93226 ==

== ENCOUNTER → 2025-03-21 | Outpatient (CLI) | payer OTHER, SELFPAY ==
[2025-03-21 20:00] LABS: Vitamin D,25 Hydroxy 13.4 ng/mL (30-100)
== END | disposition home or self-care (01) ==
LOC: MFPLAB 14:51
PROVIDERS: PCP Family Medicine; Referring Provider Family Medicine; Visit Provider Family Medicine
DX: R53.83 Other fatigue (principal)
CPT/HCPCS: 36415; 82306

== ENCOUNTER → 2025-04-26 | Outpatient (CLI) | payer OTHER, SELFPAY ==
--- NOTE | 2025-04-26 13:47 | CT_ITS ---
PROCEDURE: ABDOMEN WITHOUT IV CONTRAST 04/26/2025 REASON FOR EXAM: RIGHT UPPER QUADRANT PAIN Gaseous distention. TECHNIQUE: Abdomen CT without intravenous contrast. Coronal and Sagittal reconstruction series were provided. One or more dose reduction techniques were used (e.g., Automated exposure control, adjustment of the mA and/or kV according to patient size, use of iterative reconstruction technique PATIENT PREPARATION: Per protocol ORAL CONTRAST TYPE: None. RADIATION DOSE SUMMARY: CTDlvol: 24.12 mGy DLP: 976.1 mGycm COMPARISON: None FINDINGS: Noncontrast technique limits evaluation of the abdominal viscera. Lung bases: Minimal increased linear markings at the lung bases suggestive of linear atelectasis and/or scarring. Coronary artery calcification. Liver: There is a 1.1 cm hypodensity in the left lobe of the liver suggestive of a small cyst. Several small cysts are also seen in the inferior aspect of the right lobe of the liver. The largest cyst measures 2.7 cm and is in the lower aspect of the right lobe. Gallbladder: Multiple gallstones. Spleen: Normal size. Pancreas: Diffuse fatty atrophy. Adrenals: Unremarkable. Kidneys: Bilateral renal cysts. The largest cyst is in the upper pole of the right kidney measuring 5.6 cm. Bowel: Nonspecific bowel pattern. Lymph nodes: Unremarkable. Vasculature: Mild diffuse atherosclerotic calcifications are noted. Peritoneum / Retroperitoneum: Unremarkable Bones: Degenerative changes of the spine. Prior intrapedicular screw and fred fixation at the L4-L5 level. Anterior spondylosis at the L1-L2 level. CT/Abdomen without IV Contrast IMPRESSION: Hepatic cysts. Multiple small gallstones. Bilateral renal cysts more prominent on the right side. Reading Location: [place] [id number]
== END | disposition home or self-care (01) ==
LOC: CT 13:23
PROVIDERS: PCP Family Medicine; Referring Provider Family Medicine; Visit Provider Family Medicine
DX: R10.11 Right upper quadrant pain (principal)
CPT/HCPCS: 74150

== ENCOUNTER → 2025-05-17 | Outpatient (CLI) | payer OTHER, SELFPAY ==
[2025-05-17 11:25] LABS: PSA,Total- Diagnostic 0.92 ng/mL (0.00-4.00)
== END | disposition home or self-care (01) ==
LOC: LAB 09:16
PROVIDERS: PCP Family Medicine; Referring Provider Urology; Visit Provider Urology
DX: N40.0 Benign prostatic hyperplasia without lower urinary tract symptoms (principal)
CPT/HCPCS: 84153

== ENCOUNTER 2025-05-23 09:46 | Day surgery (SDC) | payer OTHER, SELFPAY ==
--- NOTE | 2025-05-17 08:54 | EKG12_ITS ---
Test Reason : PRE OP Blood Pressure : */* mmHG Vent. Rate : 63 BPM Atrial Rate : 63 BPM P-R Int : 196 ms QRS Dur : 92 ms QT Int : 432 ms P-R-T Axes : 34 -47 4 degrees QTcB Int : 442 ms Normal sinus rhythm Left axis deviation Abnormal ECG Confirmed by EVELIN WALKER, GALLITO ([id number]), supervising editor news reel TAWANNA JIM ([id number]) on 05/18/2025 7:04:17 AM Referred By: Lashon Dhaliwal Confirmed By: GALLITO WATERS MD
[2025-05-17 10:09] LABS: Hematocrit 41.4 % (40-54); Hemoglobin 13.3 g/dL (13.0-16.5); Mean Corp Hgb Conc 32.1 g/dL (32-36); Mean Corpuscular Hgb 31.1 pg (27.0-32.0); Mean Platelet Vol. 9.2 fl (6.2-12.0); Platelet Count 311 K/mm3 (150-450); RBC Distribution Width CV 13.9 % (11.6-14.6); RBC Distribution Width SD 49.7 fl (35.1-43.9); Red Blood Count 4.27 M/mm3 (4.6-6.2)
[2025-05-17 11:54] LABS: Anion Gap 11 (5-15); BUN 17 mg/dL (4-19); BUN/Creat Ratio 18.1 RATIO (10-20); Carbon Dioxide 26.9 mmol/L (21.0-32.0); Chloride 104 mmol/L (98-108); Creatinine, Serum 0.93 mg/dL (0.70-1.20); EST Glomerular Filtration Rate 88 (>60); Glucose 107 mg/dL (70-99); Potassium 4.4 mmol/L (3.3-5.1); Sodium Level 141 mmol/L (133-145)
--- NOTE | 2025-05-18 21:53 | PAT.ANESEVAL ---
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 When Was Last Pacemaker Check QUESTION #4 FULL TEXT: You/Your Family Experience fever (hyperthermia) with Anesthesia Last Oral Intake Last Oral intake: Last Oral Intake NPO since Meds taken in AM with sips of water? 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 - pattern designer: PONV - pattern designer Female No 05/16/25 14:24 HX of Motion Sickness No 05/16/25 14:24 HX of N/V After Surgery No 05/16/25 14:24 Non-Smoker Yes 05/16/25 14:24 Duration of Surgery greater Yes 05/16/25 14:24 than 60 minutes Number of Risk Factors 2 05/16/25 14:24 PONV Score Moderate Risk 05/16/25 14:24 Height & Weight Height & Weight: Anesthesia: Height & Weight Height 6 ft 05/13/25 09:17 Respiratory Assessment Respiratory Assessment - pattern designer: Respiratory Tract Infection Hx - pattern designer Hx Respiratory Tract Infection No 05/16/25 14:24 STOP Sleep Apnea STOP Sleep Apnea - pattern designer: STOP Sleep Apnea - pattern designer Hx Hypertension Yes: CONTROLLED WITH MED 05/16/25 14:24 Hx Sleep Apnea Yes 05/16/25 14:24 CPAP Yes 05/16/25 14:24 BIPAP No 05/16/25 14:24 Do you snore loudly (louder than talking or can be heard Do you often feel tired/ fatigued/ sleepy during daytime? Has anyone observed you stop breathing during sleep? STOP Results Positive 05/16/25 14:24 QUESTION #5 FULL TEXT : Do you snore loudly (louder than talking or can be heard through closed doors)? 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 confused, unrespo /Reproduction History /Reproductive History - pattern designer: /Reproductive Hx- pattern designer Hx Now No 05/16/25 14:24 Gestational Age (in weeks): EDC: Hx Hx Para Hx Section SAB No 05/16/25 14:24 Active Medications Active Medications: Current Medications Generic Name Dose Route Start Last Admin Trade Name Freq PRN Reason Stop Dose Admin Indocyanine Green 3.75 mg/ N/A 1.5 mls @ 999 mls/hr 05/23/25 09:15 IV 05/23/25 09:16 PREOP ONE [facility] Medical History (Updated 05/16/25 @ 14:35 by Kristen Posada) Wears glasses Thyroid disease Uses wheelchair Walker as ambulation aid CPAP (continuous positive airway pressure) dependence Shortness of breath on exertion History of stress test History of echocardiogram History of Holter monitoring Cardiology follow-up encounter History of atrial fibrillation Hx of fracture of hip Legally blind Depression Thyroid disease Back pain HTN (hypertension) Parkinson's disease Wears glasses Anxiety Prostate disease Non-smoker BPH (benign prostatic hyperplasia) Parkinsons Glaucoma Home Medications ?Medication ?Instructions ?Recorded ?Last Taken ?Type multivitamin 2 tab PO DAILY Supplement 11/19/19 11/18/19 History acetaminophen 500 mg tablet 1,000 mg PO Q8 PRN Check with 09/13/22 Unknown History primary doctor albuterol sulfate 90 mcg/actuation 2 puff inhalation Q4H PRN 09/22/23 Unknown Rx aerosol inhaler (Ventolin HFA) shortness of breath or wheezing #18 grams magnesium 250 mg tablet 250 mg PO DAILY 01/28/24 Unknown History levothyroxine 112 mcg tablet 112 mcg PO DAILY 03/26/24 Unknown History (Synthroid) lisinopril 5 mg tablet 5 mg PO DAILY BP #90 tabs 06/18/24 Unknown Rx ergocalciferol (vitamin D2) 1,250 1,250 mcg PO QWEEK 04/07/25 Unknown History mcg (50,000 unit) capsule amiodarone 200 mg tablet 200 mg PO DAILY #90 tabs 04/11/25 Unknown Rx apixaban 5 mg tablet (Eliquis) 5 mg PO BID #180 tabs 04/11/25 Unknown Rx carbidopa ER 50 mg-levodopa 200 mg 1 tab PO QHS #30 tabs 05/09/25 Unknown Rx tablet,extended release escitalopram oxalate 20 mg tablet 20 mg PO QDAY #30 tabs 05/09/25 Unknown Rx mirtazapine 30 mg tablet 30 mg PO QHS #30 tabs 05/09/25 Unknown Rx carbidopa ER 48.75 mg-levodopa 195 2 cap PO 4X/DAY SHAKES 05/16/25 Unknown History mg capsule,extended release (Rytary) dorzolamide 22.3 mg-timolol 6.8 1 drp LEFT EYE BID 05/16/25 Unknown History mg/mL eye drops metoprolol tartrate 25 mg tablet 25 mg PO DAILY 05/16/25 Unknown History netarsudil 0.02 %-latanoprost 1 drp LEFT EYE DAILY 05/16/25 Unknown History 0.005 % eye drops (Rocklatan) Allergy/AdvReac Type Severity Reaction Status Date / Time varicella virus vaccine live AdvReac Mild Swelling Verified 05/16/25 14:09 (From Varivax (PF)) Family History Father VTE (venous thromboembolism) Multiple blood clots every time he went into the hospital. Pt can not recall whether the blood clots started before or after he was diagnosed with esophageal CA. Mother Diabetes Surgical History (Updated 05/16/25 @ 14:35 by Kristen Posada) Hx of right cataract extraction Hx of left cataract extraction S/P TURP History of open reduction and internal fixation (ORIF) procedure History of eye surgery Hx of colonoscopy Hx of bladder repair surgery History of thyroidectomy, subtotal Fusion of lumbar spine Social History household members: spouse and other details: Spouse's name is Ludy. 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 Smoking Status: Never smoker alcohol intake: never substance use type: does not use Audit: Pertinent Findings Pertinent Findings EKG Perinent findings: May 17, 2025. Normal sinus rhythm. Left axis deviation. Stress test pertinent findings: May 24, 2024. EF 66%. Rest and stress nuclear imaging demonstrate relatively uniform tracer uptake and myocardial perfusion appearing within normal limits. Echo (EF%) pertinent findings: May 21, 2024. EF 65%. No aortic stenosis noted. Consult pertinent findings: January 21, 2025. 1. Long-term anticoagulant use?acute-takes Eliquis 5 mg twice a day. No nuisance bleeding. Denies any recent falls. 2. Atrial [id number] in office shows normal sinus rhythm today. Patient tolerating amiodarone. Pending PFTs. Watch for amiodarone toxicity. 3. SAUL?hypopnea syndrome?chronic 4. Long-term use of amiodarone?chronic-check PFTs. Change amiodarone if necessary. 5. Hypertension?chronic-controlled. Additional pertinent findings: Holter monitor. February 04, 2025. Predominant rhythm is normal sinus rhythm/sinus bradycardia. No atrial fibrillation noted. No PVCs. 2 episodes of chest pressure was noted in the diary which correlated with sinus bradycardia. Recommendation Anesthesia Recommendation Anesthesia recommendation: F/U recommended (Cardiology visit in January 2025 suggested patient was going to have pulmonary function test performed. This is to evaluate for amiodarone toxicity. I do not see that it has been completed. Do we need this test prior to surgery?)
--- NOTE | 2025-05-19 11:12 | PAT.ANE_ITS ---
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 When Was Last Pacemaker Check QUESTION #4 FULL TEXT: You/Your Family Experience fever (hyperthermia) with Anesthesia Last Oral Intake Last Oral intake: Last Oral Intake NPO since Meds taken in AM with sips of water? 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 Female No 05/16/25 14:24 HX of Motion Sickness No 05/16/25 14:24 HX of N/V After Surgery No 05/16/25 14:24 Non-Smoker Yes 05/16/25 14:24 Duration of Surgery greater Yes 05/16/25 14:24 than 60 minutes Number of Risk Factors 2 05/16/25 14:24 PONV Score Moderate Risk 05/16/25 14:24 Height & Weight Height & Weight: Anesthesia: Height & Weight Height 6 ft 05/13/25 09:17 Respiratory Assessment Respiratory Assessment - utilities and maintenance supervisor: Respiratory Tract Infection Hx - utilities and maintenance supervisor Hx Respiratory Tract Infection No 05/16/25 14:24 STOP Sleep Apnea STOP Sleep Apnea - utilities and maintenance supervisor: STOP Sleep Apnea - utilities and maintenance supervisor Hx Hypertension Yes: CONTROLLED WITH MED 05/16/25 14:24 Hx Sleep Apnea Yes 05/16/25 14:24 CPAP Yes 05/16/25 14:24 BIPAP No 05/16/25 14:24 Do you snore loudly (louder than talking or can be heard Do you often feel tired/ fatigued/ sleepy during daytime? Has anyone observed you stop breathing during sleep? STOP Results Positive 05/16/25 14:24 QUESTION #5 FULL TEXT : Do you snore loudly (louder than talking or can be heard through closed doors)? 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 confused, unrespo /Reproduction History /Reproductive History - utilities and maintenance supervisor: /Reproductive Hx- utilities and maintenance supervisor Hx Now No 05/16/25 14:24 Gestational Age (in weeks): EDC: Hx Hx Para Hx Section SAB No 05/16/25 14:24 Active Medications Active Medications: Current Medications Generic Name Dose Route Start Last Admin Trade Name Freq PRN Reason Stop Dose Admin Indocyanine Green 3.75 mg/ N/A 1.5 mls @ 999 mls/hr 05/23/25 09:15 IV 05/23/25 09:16 PREOP ONE [facility] Medical History (Updated 05/16/25 @ 14:35 by Kristen Posada) Wears glasses Thyroid disease Uses wheelchair Walker as ambulation aid CPAP (continuous positive airway pressure) dependence Shortness of breath on exertion History of stress test History of echocardiogram History of Holter monitoring Cardiology follow-up encounter History of atrial fibrillation Hx of fracture of hip Legally blind Depression Thyroid disease Back pain HTN (hypertension) Parkinson's disease Wears glasses Anxiety Prostate disease Non-smoker BPH (benign prostatic hyperplasia) Parkinsons Glaucoma Home Medications ?Medication ?Instructions ?Recorded ?Last Taken ?Type multivitamin 2 tab PO DAILY Supplement 11/18/19 History acetaminophen 500 mg tablet 1,000 mg PO Q8 PRN Check w ith 09/13/22 Unknown History primary doctor albuterol sulfate 90 mcg/actuation 2 puff inhalation Q 4H PRN 09/22/23 Unknown Rx aerosol inhaler (Ventolin HFA) shortness of breath or wheezing #18 grams magnesium 250 mg tablet 250 mg PO DAILY 01/28/24 Unk nown History levothyroxine 112 mcg tablet 112 mcg PO DAILY 03/26/24 Unknown History (Synthroid) lisinopril 5 mg tablet 5 mg PO DAILY BP #90 tabs Unknown Rx ergocalciferol (vitamin D2) 1,250 1,250 mcg PO QWEEK 0 04/07/25 Unknown History mcg (50,000 unit) capsule amiodarone 200 mg tablet 200 mg PO DAILY #90 tabs 11/24 Unknown Rx apixaban 5 mg tablet (Eliquis) 5 mg PO BID #180 tabs 0 04/11/25 Unknown Rx carbidopa ER 50 mg-levodopa 200 mg 1 tab PO QHS #30 ta bs 05/09/25 Unknown Rx tablet,extended release escitalopram oxalate 20 mg tablet 20 mg PO QDAY #30 ta bs 05/09/25 Unknown Rx mirtazapine 30 mg tablet 30 mg PO QHS #30 tabs Unknown Rx carbidopa ER 48.75 mg-levodopa 195 2 cap PO 4X/DAY SHA KES 05/16/25 Unknown History mg capsule,extended release (Rytary) dorzolamide 22.3 mg-timolol 6.8 1 drp LEFT EYE BID Unknown History mg/mL eye drops metoprolol tartrate 25 mg tablet 25 mg PO DAILY Unknown History netarsudil 0.02 %-latanoprost 1 drp LEFT EYE DAILY Unknown History 0.005 % eye drops (Rocklatan) Allergy/AdvReac Type Severity Reaction Status Date / Time varicella virus vaccine live AdvReac Mild Swelling Verified 05/16/25 14:09 (From Varivax (PF)) Family History Father VTE (venous thromboembolism) Multiple blood clots every time he went into the hospital. Pt can not recall whether the blood clots started before or after he was diagnosed with esophageal CA. Mother Diabetes Surgical History (Updated 05/16/25 @ 14:35 by Kristen Posada) Hx of right cataract extraction Hx of left cataract extraction S/P TURP History of open reduction and internal fixation (ORIF) procedure History of eye surgery Hx of colonoscopy Hx of bladder repair surgery History of thyroidectomy, subtotal Fusion of lumbar spine Social History household members: spouse and other details: Spouse's name is Ludy. 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 Smoking Status: Never smoker alcohol intake: never substance use type: does not use Audit: Pertinent Findings HISTORY of Pertinent Findings History of Pertinent Findings: EKG Pertinent Findings EKG Perinent findings May 17, 2025. Normal sinus 05/18/25 21:56 rhythm. Left axis deviation. Stress Test Pertinent Findings Stress test pertinent findings May 24, 2024. EF 66%. 05/18/25 21:56 Rest and stress nuclear imaging demonstrate relatively uniform tracer uptake and myocardial perfusion appearing within normal limits. Echo Pertinent Findings Echo (EF%) pertinent findings May 21, 2024. EF 65%. No 05/18/25 21:56 aortic stenosis noted. Consult Pertinent Findings Consult pertinent findings January 21, 2025. 05/18/25 22:07 1. Long-term anticoagulant use?acute-takes Eliquis 5 mg twice a day. No nuisance bleeding. Denies any recent falls. 2. Atrial fibrillation- chronic-EKG in office shows normal sinus rhythm today. Patient tolerating amiodarone. Pending PFTs. Watch for amiodarone toxicity. 3. SAUL?hypopnea syndrome? chronic 4. Long-term use of amiodarone?chronic-check PFTs. Change amiodarone if necessary. 5. Hypertension?chronic- controlled. Additional Pertinent Findings Additional pertinent findings Holter monitor. February 0405/18/25 22:07 2024. Predominant rhythm is normal sinus rhythm/sinus bradycardia. No atrial fibrillation noted. No PVCs . 2 episodes of chest pressure was noted in the diary which correlated with sinus bradycardia. Pertinent Findings EKG Perinent findings: May 17, 2025. Normal sinus rhythm. Left axis deviation. Stress test pertinent findings: May 24, 2024. EF 66%. Rest and stress nuclear imaging demonstrate relatively uniform tracer uptake and myocardial perfusion appearing within normal limits. Echo (EF%) pertinent findings: May 21, 2024. EF 65%. No aortic stenosis noted. Consult pertinent findings: January 21, 2025. 1. Long-term anticoagulant use?acute-takes Eliquis 5 mg twice a day. No nuisance bleeding. Denies any recent falls. 2. Atrial [id number] in office shows normal sinus rhythm today. Patient tolerating amiodarone. Pending PFTs. Watch for amiodarone toxicity. 3. SAUL?hypopnea syndrome?chronic 4. Long-term use of amiodarone?chronic-check PFTs. Change amiodarone if necessary. 5. Hypertension?chronic-controlled. Pulmonary function results/spirometer pertinent findings: PFT 01/24/2025: Mild restrictive ventilatory impairment with preserved diffusing capacity Additional pertinent findings: Holter monitor. February 04, 2025. Predominant rhythm is normal sinus rhythm/sinus bradycardia. No atrial fibrillation noted. No PVCs. 2 episodes of chest pressure was noted in the diary which correlated with sinus bradycardia. Recommendation Anesthesia Recommendation Anesthesia recommendation: OPTIMIZED for anesthesia
[2025-05-23] VITALS (9 sets, daily range): BP systolic 115–165; BP diastolic 68–103; PULSE 55–65; RESP 14–18; TEMP 35.9–36.5; O2SAT 93–100; BMI 36.4
--- NOTE | 2025-05-23 09:47 | PCM.HP.BLA ---
History and Physical Date of Admission: 05/23/25 Date of Service: 05/13/25 MR#: [id number] Acct: [id number] Name: JERED ESCOBAR Rep #: [id number] : 1950 Provider: Dr. Lashon Dhaliwal MD Age/Sex: 74/M Location: [facility] Status: Signed with Addenda ADDENDUM by Dr. Lashon Dhaliwal MD on 05/13/25 at 1305 Intake Chief Complaint: gallstones Allergies varicella virus vaccine live (From Varivax (PF)) Adverse Reaction (Mild, Verified 05/13/25 09:21) Swelling Medications ?Medication ?Instructions ?Recorded ?Confirmed ?Type multivitamin 2 tab PO DAILY Supplement 11/19/19 05/13/25 History acetaminophen 500 mg tablet 1,000 mg PO Q8 PRN Check with 09/13/22 05/13/25 History primary doctor albuterol sulfate 90 mcg/actuation 2 puff inhalation Q4H PRN 09/22/23 05/13/25 Rx aerosol inhaler (Ventolin HFA) shortness of breath or wheezing #18 grams magnesium 250 mg tablet 250 mg PO DAILY 01/28/24 05/13/25 History levothyroxine 112 mcg tablet 112 mcg PO DAILY 03/26/24 05/13/25 History (Synthroid) lisinopril 5 mg tablet 5 mg PO DAILY BP #90 tabs 06/18/24 05/13/25 Rx sodium sul 1.479 gram-potas ch See Rx Instructions PO PER PKG DIR 11/25/24 11/25/24 Rx 0.188 gram-magnes sul 0.225 gram #24 tabs tablet (Sutab) ergocalciferol (vitamin D2) 1,250 1,250 mcg PO QWEEK 04/07/25 05/13/25 History mcg (50,000 unit) capsule amiodarone 200 mg tablet 200 mg PO DAILY #90 tabs 04/11/25 05/13/25 Rx apixaban 5 mg tablet (Eliquis) 5 mg PO BID #180 tabs 04/11/25 05/13/25 Rx metoprolol tartrate 25 mg tablet 12.5 mg (1/2 x 25 mg) PO BID 90 04/11/25 05/13/25 Rx days #90 tabs armodafinil 50 mg tablet 50 mg PO QAM #30 tabs 05/09/25 05/13/25 Rx carbidopa ER 48.75 mg-levodopa 195 2 cap PO .4 times daily SHAKES 05/09/25 05/13/25 Rx mg capsule,extended release #240 caps (Rytary) carbidopa ER 50 mg-levodopa 200 mg 1 tab PO QHS #30 tabs 05/09/25 05/13/25 Rx tablet,extended release escitalopram oxalate 20 mg tablet 20 mg PO QDAY #30 tabs 05/09/25 05/13/25 Rx mirtazapine 30 mg tablet 30 mg PO QHS #30 tabs 05/09/25 05/13/25 Rx omeprazole 40 mg capsule,delayed 40 mg PO QDAY #30 caps 05/13/25 05/13/25 Rx release Assessment and Plan Assessment and Plan (1) Gallstones: Status: Acute (2) Umbilical hernia: Status: Acute (3) RUQ pain: Status: Acute (4) Bloating: Status: Acute Medications: New omeprazole swallow whole; do not crush, chew, dissolve, cut, break--- take in p.m. due to levothyroxine a.m. 40 mg PO QDAY 30 caps 1RF Plan Will patient hold his Eliquis x 3 days prior to surgery. Reviewed the anatomy with the patient and discussed the procedure: Robotic/laparoscopic cholecystectomy with possible cholangiograms, possible open, umbilical hernia repair no mesh. Review risks including but not limited to bleeding, infection, hernia, bile leak, retained gallstones requiring another procedure ERCP- Endoscopic Retrograde Cholangiopancreatography, injury to another organ (bile ducts, common bile duct, small bowel, etc.) and conversion to an open procedure. All questions were answered. Lashon Dhaliwal M.D. Pager: [phone] [facility] [address] [place] [address], [address] [place] [id number] Office: [phone] 05/13/25 4166 <Electronically signed by Lashon Dhaliwal MD> Date Lashon Dhaliwal MD cc: Dr. Zana Vásquez MD ~* Signed Intake Vital Signs 04/07/2510:23 05/09/2508:22 05/13/2509:17 Height 6 ft 6 ft 6 ft Weight: 259 lb 268 lb 269 lb BMI 35.1 36.3 36.4 BP 148/87 H 155/92 H 130/83 H Blood Pressure Location Lt brachial Lt brachial Rt brachial Position Sitting Sitting Sitting Respiration 16 16 17 Pulse 58 L 57 L 61 Pulse Source Monitor Monitor Monitor Temp 98.2 F 98.0 F 97.4 F L Temp Source Temporal Temporal Temporal Pulse Oximetry (%) 96 97 99 Oxygen Delivery Method room air room air room air Intake Visit Reasons: GALLSTONES Chief Complaint: gallstones Is patient in pain?: Yes (constant ache right side) Allergies varicella virus vaccine live (From Varivax (PF)) Adverse Reaction (Mild, Verified 05/13/25 09:21) Swelling Medications ?Medication ?Instructions ?Recorded ?Confirmed ?Type multivitamin 2 tab PO DAILY Supplement 11/19/19 05/13/25 History acetaminophen 500 mg tablet 1,000 mg PO Q8 PRN Check with 09/13/22 05/13/25 History primary doctor albuterol sulfate 90 mcg/actuation 2 puff inhalation Q4H PRN 09/22/23 05/13/25 Rx aerosol inhaler (Ventolin HFA) shortness of breath or wheezing #18 grams magnesium 250 mg tablet 250 mg PO DAILY 01/28/24 05/13/25 History levothyroxine 112 mcg tablet 112 mcg PO DAILY 03/26/24 05/13/25 History (Synthroid) lisinopril 5 mg tablet 5 mg PO DAILY BP #90 tabs 06/18/24 05/13/25 Rx sodium sul 1.479 gram-potas ch See Rx Instructions PO PER PKG DIR 11/25/24 11/25/24 Rx 0.188 gram-magnes sul 0.225 gram #24 tabs tablet (Sutab) ergocalciferol (vitamin D2) 1,250 1,250 mcg PO QWEEK 04/07/25 05/13/25 History mcg (50,000 unit) capsule amiodarone 200 mg tablet 200 mg PO DAILY #90 tabs 04/11/25 05/13/25 Rx apixaban 5 mg tablet (Eliquis) 5 mg PO BID #180 tabs 04/11/25 05/13/25 Rx metoprolol tartrate 25 mg tablet 12.5 mg (1/2 x 25 mg) PO BID 90 04/11/25 05/13/25 Rx days #90 tabs armodafinil 50 mg tablet 50 mg PO QAM #30 tabs 05/09/25 05/13/25 Rx carbidopa ER 48.75 mg-levodopa 195 2 cap PO .4 times daily SHAKES 05/09/25 05/13/25 Rx mg capsule,extended release #240 caps (Rytary) carbidopa ER 50 mg-levodopa 200 mg 1 tab PO QHS #30 tabs 05/09/25 05/13/25 Rx tablet,extended release escitalopram oxalate 20 mg tablet 20 mg PO QDAY #30 tabs 05/09/25 05/13/25 Rx mirtazapine 30 mg tablet 30 mg PO QHS #30 tabs 05/09/25 05/13/25 Rx omeprazole 40 mg capsule,delayed 40 mg PO QDAY #30 caps 05/13/25 05/13/25 Rx release Have you fallen in the past year?: Yes (legally blind, tripped in home) [facility] Medical History Fatigue Legally blind Depression Thyroid disease Back pain BiPAP (biphasic positive airway pressure) dependence COPD (chronic obstructive pulmonary disease) History of echocardiogram History of irregular heartbeat Abdominal ultrasound, abnormal Syncopal episodes Chest pain Atrial fibrillation 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 HTN (hypertension) Parkinson's disease Chronic anxiety Kidney stones Migraines Wears glasses Anxiety Prostate disease Bladder disease Non-smoker History of stress test Hypertension Obesity (BMI 30-39.9) Obstructive Sleep Apnea-Hypopnea Syndrome Cataract fragments in both eyes following surgery GERD (gastroesophageal reflux disease) BPH (benign prostatic hyperplasia) Parkinsons Hypothyroidism Glaucoma Surgical History S/P TURP History of open reduction and internal fixation (ORIF) procedure History of eye surgery Hx of colonoscopy Hx of bladder repair surgery History of thyroidectomy, subtotal Fusion of lumbar spine Family History Father VTE (venous thromboembolism) Multiple blood clots every time he went into the hospital. Pt can not recall whether the blood clots started before or after he was diagnosed with esophageal CA.Mother Diabetes Social History household members: spouse and other details: Spouse's name is Ludy. 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 Smoking Status: Never smoker alcohol intake: never substance use type: does not use HPI HPI HPI: 74-year-old male presents with his due to right upper quadrant pain as well as abdominal bloating. Patient does have history of Parkinson's and sometimes he has when he coughs off days where he is a bit slower and this happens occasionally not related anything. Patient did just start new medication for his Parkinson's. Patient states he did get some right upper quadrant pain in the afternoon yesterday and did have some beef roast for lunch. Patient had a CT abdomen pelvis did show gallstones. Patient denies any heartburn or reflux. And point towards the right upper quadrant when asked where he gets the discomfort. ROS General General: Yes weight change and fatigue; No appetite, colon cancer or breast cancer HEENT HEENT: No difficulty swallowing, eye injury, eye surgery, swollen glands or hoarseness Endo Endocrine: Yes thyroid disease; No diabetes mellitus, thyroid cancer, Hair loss, heat intolerance or cold intolerance Skin Skin: No rash or changing moles Musc Musculoskeletal: No back problems, arthritis, rheumatoid arthritis, gout or joint pain Cardio Cardiovascular: Yes atrial fibrillation; No murmur, pacemaker, heart disease, high blood pressure, heart attack, heart stent, palpitations, shortness of breath with exertion or chest pain Psych Psychiatric: Yes depression and anxiety; No hearing voices Resp Respiratory: Yes shortness of breath, Yes sleep apnea, Yes cough, No COPD, No asthma, No emphysema and No wheezing Gastro Gastrointestinal: No abdominal pain, No nausea or vomiting, No diarrhea, Yes constipation, No blood in stool, No acid reflux, No hemorrhoids, No ulcers, Yes gallbladder problem and No black,tarry stools Abdelrahman Hematologic: Yes blood thinners, No blood disorders, No bleeding, No anemia and No blood clots Neuro Neurologic: Yes numbness and Yes tingling Exam Const General: cooperative, healthy appearing, comfortable and no acute distress [facility] Head: normocephalic and atraumatic Neck Neck: supple Resp Effort & Inspection: normal respiratory effort Cardio Rate: regular rate GI Inspection: non-distended Palpation: soft, hernia (Umbilical reducible) and nontender Skin General: no rashes or lesions noted Neuro General: CN's II-XI intact bilaterally Extrem General: normal to inspection Psych Mental Status: mental status grossly normal Attitude: cooperative Assessment and Plan Assessment and Plan (1) Gallstones: Status: Acute (2) Umbilical hernia: Status: Acute (3) RUQ pain: Status: Acute (4) Bloating: Status: Acute Medications: New omeprazole swallow whole; do not crush, chew, dissolve, cut, break--- take in p.m. due to levothyroxine a.m. 40 mg PO QDAY 30 caps 1RF Plan Discussed with patient and his will try omeprazole for the bloating. Currently in the perioperative period. Reviewed the anatomy with the patient and discussed the procedure: Robotic/laparoscopic cholecystectomy with possible cholangiograms, possible open, umbilical hernia repair no mesh. Review risks including but not limited to bleeding, infection, hernia, bile leak, retained gallstones requiring another procedure ERCP- Endoscopic Retrograde Cholangiopancreatography, injury to another organ (bile ducts, common bile duct, small bowel, etc.) and conversion to an open procedure. All questions were answered. Lashon Dhaliwal M.D. Pager: [phone] [facility] [address] [place] [address], [address] [place] [address] Office: [phone] Coding Level of Care Code Off vis,est,level 3 Diagnoses Gallstones K80.20 Umbilical hernia K42.9 RUQ pain R10.11 Bloating R14.0 Clinical Quality Measures Falls Risk Screening/Assistive Devices Have you fallen in the past year?: Yes (legally blind, tripped in home) 05/13/25 1301 <Electronically signed by Lashon Dhaliwal MD> Date Lashon Dhaliwal MD
[2025-05-23] MEDS: INDOCYANINE GREEN 3.75 MG in Syringe 1.5 ML 999 MG IV (10:19)
[2025-05-23] MEDS: Lactated Ringers 1,000 ML 15 ML IV (10:20)
--- NOTE | 2025-05-23 10:29 | PCM.PRE.AN2 ---
ASA Classification* ASA Classification ASA Classification: 3 Assessment & Plan Anesthesia* Anesthesia Assessment Anesthesia Assessment: Discussed sedation and/or anesthesia options, risks, benefits, and alternatives with patient/parents/legal guardian/POA. Questions invited. The patient/parents/legal guardian/POA seems to understand and agrees to proceed with anesthesia plan. Reviewed the physical assessment, medical history, allergy history and patient home medications list prior to surgery/procedure/anesthetic and documented any changes. Performed airway and anesthesia risk assessments. Anesthesia Type Anesthesia Type: General History Source History Obtained from:: Patient and Chart Anesthesia Focused Assessment* Temperature: 96.6 F Pulse Rate: 55 Blood Pressure: 135/89 Respiratory Rate: 18 Pulse Ox: 100 Oxygen Delivery Method: Room Air Airway Assessment Mouth opens: >3 cm Mallampati Score: III Teeth Condition: Missing Labs Anesthesia Preop lab: CBC WBC 6.0 K/mm3 (4.4-11.0) 05/17/25 09:20 05/17/25 RBC 4.27 M/mm3 (4.6-6.2) L 05/17/25 09:20 05/17/25 Hgb 13.3 g/dL (13.0-16.5) 05/17/25 09:20 05/17/25 Hct 41.4 % (40-54) 05/17/25 09:20 05/17/25 Plt Count 311 K/mm3 (150-450) 05/17/25 09:20 05/17/25 CHEMISTRY Potassium 4.4 mmol/L (3.3-5.1) 05/17/25 09:20 05/17/25 Sodium 141 mmol/L (133-145) 05/17/25 09:20 05/17/25 Magnesium 2.2 mg/dL (1.6-2.6) 12/29/24 15:18 12/29/24 Phosphorus 3.7 mg/dL (2.5-4.9) 07/02/22 05:26 07/02/22 BUN 17 mg/dL (4-19) 05/17/25 09:20 05/17/25 Creatinine 0.93 mg/dL (0.70-1.20) 05/17/25 09:20 05/17/25 Glucose 107 mg/dL (70-99) H 05/17/25 09:20 05/17/25 POC Glucose 104 mg/dL (70-110) 07/07/17 12:00 07/07/17 TSH 1.010 uIU/mL (0.300-4.200) 05/17/25 09:20 05/17/25 COAG PT 17.0 SECONDS (11.7-14.9) H 06/15/22 23:35 06/15/22 Pre-Assessment Diagnosis/Proposed Procedure Planned Operative Procedure(s): ROBOTIC CHOLEY POSS GRAMS AND UMBILICAL HERNIA REPAIR Anesthesia History Anesthesia History - private detective: Anesthesia History - private detective Hx Hospitalization No 05/16/25 14:24 Any Problems With Anesthesia No 05/16/25 14:24 Cholinesterase deficiency No 05/16/25 14:24 You/Your Family Experience No 05/16/25 14:24 fever (hyperthermia) with Relationship Recent Exposure to Contagious No 05/23/25 10:23 Disease Does patient have nerve No 05/16/25 14:24 stimulator Patient instructed to have device shut off --Does patient have Pacemaker No 05/23/25 10:23 or ICD? When Was Last Pacemaker Check QUESTION #4 FULL TEXT: You/Your Family Experience fever (hyperthermia) with Anesthesia Last Oral Intake Last Oral intake: Last Oral Intake NPO since 00:00 05/23/25 10:23 Meds taken in AM with sips of Yes 05/23/25 10:23 water? Meds patient instructed to carbidopa,levidopa, 05/23/25 10:23 take am of surgery synthroid PONV PONV - private detective: PONV - private detective Female No 05/16/25 14:24 HX of Motion Sickness No 05/16/25 14:24 HX of N/V After Surgery No 05/16/25 14:24 Non-Smoker Yes 05/16/25 14:24 Duration of Surgery greater Yes 05/16/25 14:24 than 60 minutes Number of Risk Factors 2 05/16/25 14:24 PONV Score Moderate Risk 05/16/25 14:24 Height & Weight Height & Weight: Anesthesia: Height & Weight Height 6 ft 05/23/25 10:23 Weight: 122 kg 05/23/25 10:23 Body Mass Index (BMI) 36.4 05/23/25 10:23 Respiratory Assessment Respiratory Assessment - private detective: Respiratory Tract Infection Hx - private detective Hx Respiratory Tract Infection No 05/16/25 14:24 STOP Sleep Apnea STOP Sleep Apnea - private detective: STOP Sleep Apnea - private detective Hx Hypertension Yes: CONTROLLED WITH MED 05/16/25 14:24 Hx Sleep Apnea Yes 05/16/25 14:24 CPAP Yes 05/16/25 14:24 BIPAP No 05/16/25 14:24 Do you snore loudly (louder than talking or can be heard Do you often feel tired/ fatigued/ sleepy during daytime? Has anyone observed you stop breathing during sleep? STOP Results Positive 05/16/25 14:24 QUESTION #5 FULL TEXT : Do you snore loudly (louder than talking or can be heard through closed doors)? 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 - private detective: Tobacco Use History - private detective Tobacco Use Non-smoker 04/06/21 10:48 Smoking Status Never smoker 05/16/25 14:24 Hx Tobacco Use No 05/16/25 14:24 Years Smoking Packs Smoked per Day Smoking Cessation Date was within the last 15 years Hx Smoking Cessation Date Hx Smoking Cessation Counseling Hematologic Medial History Hematologic Hx - private detective: Hematologic Medical Hx - line tender Hx of Blood Transfusion No 05/16/25 14:24 Hx of Transfusion in last 3 No 05/16/25 14:24 Months Date of Last Transfusion (if within last 3 months) Ever experience any problems No 05/16/25 14:24 with transfusion(s)? 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 confused, unrespo /Reproduction History /Reproductive History - private detective: /Reproductive Hx- private detective Hx Now No 05/16/25 14:24 Gestational Age (in weeks): EDC: Hx Hx Para Hx Section SAB No 05/16/25 14:24 Active Medications Active Medications: Current Medications Generic Name Dose Route Start Last Admin Trade Name Freq PRN Reason Stop Dose Admin Cefazolin Sodium 3 gm/ Sodium 115 mls @ 200 mls/hr 05/23/25 11:15 Chloride IV 05/23/25 11:49 INTRAOP ONE Lactated Ringer's 1,000 mls @ 15 mls/hr 05/23/25 10:00 05/23/25 10:20 IV 15 mls/hr .Q48H HERB Administration PFSH Medical History Wears glasses Thyroid disease Uses wheelchair Walker as ambulation aid CPAP (continuous positive airway pressure) dependence Shortness of breath on exertion History of stress test History of echocardiogram History of Holter monitoring Cardiology follow-up encounter History of atrial fibrillation Hx of fracture of hip Legally blind Depression Thyroid disease Back pain HTN (hypertension) Parkinson's disease Wears glasses Anxiety Prostate disease Non-smoker BPH (benign prostatic hyperplasia) Parkinsons Glaucoma Home Medications ?Medication ?Instructions ?Recorded ?Last Taken ?Type multivitamin 2 tab PO DAILY Supplement 11/19/19 05/22/25 History acetaminophen 500 mg tablet 1,000 mg PO Q8 PRN Check with 09/13/22 Unknown History primary doctor albuterol sulfate 90 mcg/actuation 2 puff inhalation Q4H PRN 09/22/23 Unknown Rx aerosol inhaler (Ventolin HFA) shortness of breath or wheezing #18 grams magnesium 250 mg tablet 250 mg PO DAILY 01/28/24 05/22/25 History levothyroxine 112 mcg tablet 112 mcg PO DAILY 03/26/24 05/23/25 History (Synthroid) lisinopril 5 mg tablet 5 mg PO DAILY BP #90 tabs 06/18/24 05/22/25 Rx ergocalciferol (vitamin D2) 1,250 1,250 mcg PO QWEEK 04/07/25 05/15/25 History mcg (50,000 unit) capsule amiodarone 200 mg tablet 200 mg PO DAILY #90 tabs 04/11/25 05/22/25 Rx apixaban 5 mg tablet (Eliquis) 5 mg PO BID #180 tabs 04/11/25 05/19/25 Rx carbidopa ER 50 mg-levodopa 200 mg 1 tab PO QHS #30 tabs 05/09/25 05/22/25 Rx tablet,extended release escitalopram oxalate 20 mg tablet 20 mg PO QDAY #30 tabs 05/09/25 05/22/25 Rx mirtazapine 30 mg tablet 30 mg PO QHS #30 tabs 05/09/25 05/22/25 Rx carbidopa ER 48.75 mg-levodopa 195 2 cap PO 4X/DAY SHAKES 05/16/25 05/23/25 History mg capsule,extended release (Rytary) dorzolamide 22.3 mg-timolol 6.8 1 drp LEFT EYE BID 05/16/25 05/22/25 History mg/mL eye drops metoprolol tartrate 25 mg tablet 25 mg PO DAILY 05/16/25 05/22/25 History netarsudil 0.02 %-latanoprost 1 drp LEFT EYE DAILY 05/16/25 05/22/25 History 0.005 % eye drops (Rocklatan) Allergy/AdvReac Type Severity Reaction Status Date / Time varicella virus vaccine live AdvReac Mild Swelling Verified 05/23/25 10:16 (From Project 10K (PF)) Family History Father VTE (venous thromboembolism) Multiple blood clots every time he went into the hospital. Pt can not recall whether the blood clots started before or after he was diagnosed with esophageal CA. Mother Diabetes Surgical History Hx of right cataract extraction Hx of left cataract extraction S/P TURP History of open reduction and internal fixation (ORIF) procedure History of eye surgery Hx of colonoscopy Hx of bladder repair surgery History of thyroidectomy, subtotal Fusion of lumbar spine Social History household members: spouse and other details: Spouse's name is Ludy. 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 Smoking Status: Never smoker alcohol intake: never substance use type: does not use Review of Systems (Anesthesia) ROS Narrative System reviewed and no additional complaints, except as documented.
--- NOTE | 2025-05-23 10:38 | PCM.PRE.AN2 ---
ASA Classification* ASA Classification ASA Classification: 3 Assessment & Plan Anesthesia* Anesthesia Assessment Anesthesia Assessment: Discussed sedation and/or anesthesia options, risks, benefits, and alternatives with patient/parents/legal guardian/POA. Questions invited. The patient/parents/legal guardian/POA seems to understand and agrees to proceed with anesthesia plan. Reviewed the physical assessment, medical history, allergy history and patient home medications list prior to surgery/procedure/anesthetic and documented any changes. Performed airway and anesthesia risk assessments. Anesthesia Type Anesthesia Type: General Anesthesia Focused Assessment* Temperature: 96.6 F Pulse Rate: 55 Blood Pressure: 135/89 Respiratory Rate: 18 Pulse Ox: 100 Airway Assessment Mouth opens: >3 cm Mallampati Score: III Labs Anesthesia Preop lab: CBC WBC 6.0 K/mm3 (4.4-11.0) 05/17/25 09:20 05/17/25 RBC 4.27 M/mm3 (4.6-6.2) L 05/17/25 09:20 05/17/25 Hgb 13.3 g/dL (13.0-16.5) 05/17/25 09:20 05/17/25 Hct 41.4 % (40-54) 05/17/25 09:20 05/17/25 Plt Count 311 K/mm3 (150-450) 05/17/25 09:20 05/17/25 CHEMISTRY Potassium 4.4 mmol/L (3.3-5.1) 05/17/25 09:20 05/17/25 Sodium 141 mmol/L (133-145) 05/17/25 09:20 05/17/25 Magnesium 2.2 mg/dL (1.6-2.6) 12/29/24 15:18 12/29/24 Phosphorus 3.7 mg/dL (2.5-4.9) 07/02/22 05:26 07/02/22 BUN 17 mg/dL (4-19) 05/17/25 09:20 05/17/25 Creatinine 0.93 mg/dL (0.70-1.20) 05/17/25 09:20 05/17/25 Glucose 107 mg/dL (70-99) H 05/17/25 09:20 05/17/25 POC Glucose 104 mg/dL (70-110) 07/07/17 12:00 07/07/17 TSH 1.010 uIU/mL (0.300-4.200) 05/17/25 09:20 05/17/25 COAG PT 17.0 SECONDS (11.7-14.9) H 06/15/22 23:35 06/15/22 Pre-Assessment Diagnosis/Proposed Procedure Planned Operative Procedure(s): ROBOTIC CHOLEY POSS GRAMS AND UMBILICAL HERNIA REPAIR Anesthesia History Anesthesia History - wooden barrel mechanic: Anesthesia History - wooden barrel mechanic Hx Hospitalization No 05/16/25 14:24 Any Problems With Anesthesia No 05/16/25 14:24 Cholinesterase deficiency No 05/16/25 14:24 You/Your Family Experience No 05/16/25 14:24 fever (hyperthermia) with Relationship Recent Exposure to Contagious No 05/23/25 10:23 Disease Does patient have nerve No 05/16/25 14:24 stimulator Patient instructed to have device shut off --Does patient have Pacemaker No 05/23/25 10:23 or ICD? When Was Last Pacemaker Check QUESTION #4 FULL TEXT: You/Your Family Experience fever (hyperthermia) with Anesthesia Last Oral Intake Last Oral intake: Last Oral Intake NPO since 00:00 05/23/25 10:23 Meds taken in AM with sips of Yes 05/23/25 10:23 water? Meds patient instructed to carbidopa,levidopa, 05/23/25 10:23 take am of surgery synthroid PONV PONV - wooden barrel mechanic: PONV - wooden barrel mechanic Female No 05/16/25 14:24 HX of Motion Sickness No 05/16/25 14:24 HX of N/V After Surgery No 05/16/25 14:24 Non-Smoker Yes 05/16/25 14:24 Duration of Surgery greater Yes 05/16/25 14:24 than 60 minutes Number of Risk Factors 2 05/16/25 14:24 PONV Score Moderate Risk 05/16/25 14:24 Height & Weight Height & Weight: Anesthesia: Height & Weight Height 6 ft 05/23/25 10:23 Weight: 122 kg 05/23/25 10:23 Body Mass Index (BMI) 36.4 05/23/25 10:23 Respiratory Assessment Respiratory Assessment - wooden barrel mechanic: Respiratory Tract Infection Hx - wooden barrel mechanic Hx Respiratory Tract Infection No 05/16/25 14:24 STOP Sleep Apnea STOP Sleep Apnea - wooden barrel mechanic: STOP Sleep Apnea - wooden barrel mechanic Hx Hypertension Yes: CONTROLLED WITH MED 05/16/25 14:24 Hx Sleep Apnea Yes 05/16/25 14:24 CPAP Yes 05/16/25 14:24 BIPAP No 05/16/25 14:24 Do you snore loudly (louder than talking or can be heard Do you often feel tired/ fatigued/ sleepy during daytime? Has anyone observed you stop breathing during sleep? STOP Results Positive 05/16/25 14:24 QUESTION #5 FULL TEXT : Do you snore loudly (louder than talking or can be heard through closed doors)? 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 - wooden barrel mechanic: Tobacco Use History - wooden barrel mechanic Tobacco Use Non-smoker 04/06/21 10:48 Smoking Status Never smoker 05/16/25 14:24 Hx Tobacco Use No 05/16/25 14:24 Years Smoking Packs Smoked per Day Smoking Cessation Date was within the last 15 years Hx Smoking Cessation Date Hx Smoking Cessation Counseling Hematologic Medial History Hematologic Hx - wooden barrel mechanic: Hematologic Medical Hx - cardiac exercise physiologist Hx of Blood Transfusion No 05/16/25 14:24 Hx of Transfusion in last 3 No 05/16/25 14:24 Months Date of Last Transfusion (if within last 3 months) Ever experience any problems No 05/16/25 14:24 with transfusion(s)? 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 confused, unrespo /Reproduction History /Reproductive History - wooden barrel mechanic: /Reproductive Hx- wooden barrel mechanic Hx Now No 05/16/25 14:24 Gestational Age (in weeks): EDC: Hx Hx Para Hx Section SAB No 05/16/25 14:24 Active Medications Active Medications: Current Medications Generic Name Dose Route Start Last Admin Trade Name Freq PRN Reason Stop Dose Admin Cefazolin Sodium 3 gm/ Sodium 115 mls @ 200 mls/hr 05/23/25 11:15 Chloride IV 05/23/25 11:49 INTRAOP ONE Lactated Ringer's 1,000 mls @ 15 mls/hr 05/23/25 10:00 05/23/25 10:20 IV 15 mls/hr .Q48H HERB Administration PFSH Medical History Wears glasses Thyroid disease Uses wheelchair Walker as ambulation aid CPAP (continuous positive airway pressure) dependence Shortness of breath on exertion History of stress test History of echocardiogram History of Holter monitoring Cardiology follow-up encounter History of atrial fibrillation Hx of fracture of hip Legally blind Depression Thyroid disease Back pain HTN (hypertension) Parkinson's disease Wears glasses Anxiety Prostate disease Non-smoker BPH (benign prostatic hyperplasia) Parkinsons Glaucoma Home Medications ?Medication ?Instructions ?Recorded ?Last Taken ?Type multivitamin 2 tab PO DAILY Supplement 11/19/19 05/22/25 History acetaminophen 500 mg tablet 1,000 mg PO Q8 PRN Check with 09/13/22 Unknown History primary doctor albuterol sulfate 90 mcg/actuation 2 puff inhalation Q4H PRN 09/22/23 Unknown Rx aerosol inhaler (Ventolin HFA) shortness of breath or wheezing #18 grams magnesium 250 mg tablet 250 mg PO DAILY 01/28/24 05/22/25 History levothyroxine 112 mcg tablet 112 mcg PO DAILY 03/26/24 05/23/25 History (Synthroid) lisinopril 5 mg tablet 5 mg PO DAILY BP #90 tabs 06/18/24 05/22/25 Rx ergocalciferol (vitamin D2) 1,250 1,250 mcg PO QWEEK 04/07/25 05/15/25 History mcg (50,000 unit) capsule amiodarone 200 mg tablet 200 mg PO DAILY #90 tabs 04/11/25 05/22/25 Rx apixaban 5 mg tablet (Eliquis) 5 mg PO BID #180 tabs 04/11/25 05/19/25 Rx carbidopa ER 50 mg-levodopa 200 mg 1 tab PO QHS #30 tabs 05/09/25 05/22/25 Rx tablet,extended release escitalopram oxalate 20 mg tablet 20 mg PO QDAY #30 tabs 05/09/25 05/22/25 Rx mirtazapine 30 mg tablet 30 mg PO QHS #30 tabs 05/09/25 05/22/25 Rx carbidopa ER 48.75 mg-levodopa 195 2 cap PO 4X/DAY SHAKES 05/16/25 05/23/25 History mg capsule,extended release (Rytary) dorzolamide 22.3 mg-timolol 6.8 1 drp LEFT EYE BID 05/16/25 05/22/25 History mg/mL eye drops metoprolol tartrate 25 mg tablet 25 mg PO DAILY 05/16/25 05/22/25 History netarsudil 0.02 %-latanoprost 1 drp LEFT EYE DAILY 05/16/25 05/22/25 History 0.005 % eye drops (Rocklatan) Allergy/AdvReac Type Severity Reaction Status Date / Time varicella virus vaccine live AdvReac Mild Swelling Verified 05/23/25 10:16 (From TimeCastvax (PF)) Family History Father VTE (venous thromboembolism) Multiple blood clots every time he went into the hospital. Pt can not recall whether the blood clots started before or after he was diagnosed with esophageal CA. Mother Diabetes Surgical History Hx of right cataract extraction Hx of left cataract extraction S/P TURP History of open reduction and internal fixation (ORIF) procedure History of eye surgery Hx of colonoscopy Hx of bladder repair surgery History of thyroidectomy, subtotal Fusion of lumbar spine Social History household members: spouse and other details: Spouse's name is Ludy. 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 Smoking Status: Never smoker alcohol intake: never substance use type: does not use Review of Systems (Anesthesia) ROS Narrative System reviewed and no additional complaints, except as documented.
[2025-05-23] MEDS: Cefazolin 3 GM in 0.9% Normal Saline (100mL Bag) 100 ML IV (10:45)
--- NOTE | 2025-05-23 11:15 | GALL_PTH ---
PATIENT: JERED ESCOBAR LOC: [facility] [place] U#:[id number] AGE/SX: 74/M ROOM: RE05/23/[address]: Dr. Lashon Dhaliwal MD : 1950 BED: DIS: 05/23/2025 SPEC #: [id number] RECD: 05/23/25 13:06 STATUS: MARIPOSA REJennifer #: [id number] BRANDI: 05/23/25 11:[address]: Lashon Dhaliwal DEPT: SURGICAL PATHOLOGY RECD BY: Stuart Phillips ENTERED: 05/23/25 13:42 SP TYPE: SUZY GUERRERO DR: MD Dr. Zana Morataya MD Tissues: A - Gallbladder, NOS Procedures: Surgery Specimen Level III HEADER OPERATION: Robotic cholecystectomy and umbilical hernia PRE-OP DIAGNOSIS: Gallstones, umbilical hernia, right upper quadrant pain, bloating TISSUE SUBMITTED: A- Gallbladder MICROSCOPIC DIAGNOSIS A. Gallbladder, gallstones, cholecystectomy: - Chronic cholecystitis, cholelithiasis, cholesterolosis. MICROSCOPIC DESCRIPTION Slides are reviewed. GROSS DESCRIPTION A. Received in formalin labeled with the patient's name and date of . Designated as gallbladder is a 10.0 x 5.2 x 3.4 cm chen-pink to yellow, intact and fatty gallbladder with attached patent cystic duct (inked black, shaved). A lymph node is not present. Opening reveals yellow-orange, tenacious bile and multiple irregular to multifaceted, yellow to pigmented choleliths, ranging 0.8 cm to 1.3 cm. The mucosa is chen-yellow to red and granular with a maximum wall thickness of 0.1 cm. Cholesterolosis is present. Radiation Physicist sections are submitted in 1 [facility] 05/23/2025 CPT:76889
--- NOTE | 2025-05-23 12:13 | PCM.OPRPT ---
Operative Report (Standard) Operative Information Date of Procedure: 05/23/25 Pre-Operative Diagnosis: Bili dyskinesia, umbilical hernia Post-Operative Diagnosis: Same Surgery/Procedure Performed: Robotic cholecystectomy, umbilical hernia primary repair no mesh logging equipment operator: Yes Printing Equipment Mechanic: Bao Villa Tasks completed by social worker assistant: Opening & closing Type of Anesthesia: General/Supplemental RN Documented Start/Stop Times: Operation Date: 05/23/25 11:15 Case Time Into Pre-Op 05/23/25 09:56 Out of Pre-Op 05/23/25 10:41 Anesthesia Start 05/23/25 10:44 Into Room 05/23/25 10:44 Procedure Start 05/23/25 11:10 Procedure End 05/23/25 12:30 Anesthesia End 05/23/25 12:38 Out of Room 05/23/25 12:38 Into Recovery 05/23/25 12:43 Out of Recovery 05/23/25 13:03 Into Phase II Recovery 05/23/25 13:14 Out of Phase II 05/23/25 14:26 Procedure Start Time: 11:10 Procedure Stop Time: 12:30 Select all DRAINS/GRAFTS/IMPLANTS that apply: None Special Medications: Ancef 3 g IV x 1 Estimated Blood Loss: 10 cc Specimen collected: Yes Description of specimen(s) removed: gallbladder Description of surgery: Indications: this is a 74 year-old male who developed abdominal pain/nausea/vomiting and on workup was found to have biliary dyskinesia and umbilical hernia, with a normal common bile duct. Laparoscopic cholecystectomy with umbilical hernia repair was elected. Description procedure: The patient was placed on operating table in supine position. A timeout was completed verifying correct patient, procedure, site, position and special equipment prior to beginning procedure. General Anesthesia was induced. The abdomen was prepped and draped in usual sterile fashion. An curvilinear incision was made in the natural skin line below the umbilicus. The skin of the umbilicus was from the hernia using Metzenbaums. The fascia was elevated and incised. The peritoneum was elevated and incised. Entry into the peritoneum was confirmed visually and no bowel was noted in the vicinity of the incision. Landeros trocar was placed. The abdomen was insufflated with carbon dioxide to a pressure of 12-15 mmHg. Patient tolerated insufflation well. The laparoscope was then inserted and abdomen inspected. No injuries from initial trocar placement were noted. Additional trochars were then inserted in the following locations 8 mm trocar left upper quadrant and 2 more 8 mm trochars in right lower quadrant and left lower quadrant. The abdomen was inspected no abnormalities were found. The table is placed in reverse Trendelenburg position with the right side up. Robot was docked. The adhesions between the gallbladder and omentum were taken down carefully. The dome of the gallbladder was grasped with atraumatic grasper passed through the lateral port and retracted over the dome of the liver. Infundibulum was then grasped with atraumatic grasper through the midclavicular port and retracted to the right lower quadrant. This maneuver exposed Calot's triangle. The peritoneum overlying the gallbladder infundibulum was then incised and cystic duct and artery identified and circumferentially dissected. ICG was used to visualize the cystic duct. The cystic duct and artery were then doubly clipped and divided close to the gallbladder. The gallbladder then dissected from its peritoneal attachments by electrocautery. Hemostasis was checked and the gallbladder was removed using the endoscopic retrieval bag through the umbilical port. The gallbladder is passed off table as specimen. The gallbladder fossa was irrigated with saline and hemostasis obtained. There is no evidence of bleeding from the gallbladder fossa or cystic artery leakage of bile from the cystic duct stump. Secondary trochars removed under direct vision. No bleeding was noted the trocar sites. The laparoscope was withdrawn and umbilical trocar removed. The abdomen was allowed to collapse. The fascia of the 12 mm trocar was closed with 2 [id number] #1 Nurolon suture. Skin umbilical intact back to the fascia with interrupted 3-0 Vicryl, umbilical incision was also closed with subdermal 3-0 Vicryl interrupted sutures. The skin was closed with sutures of 4-0 Monocryl and Steri-Strips. The patient was extubated. The patient tolerated procedure well and was taken to the postanesthesia care unit in stable condition. Surgical Findings: see operative note Complications Complications: No
[2025-05-23] MEDS: Bupiv/Epi 0.25% 30 ML Vial (12:19)
--- NOTE | 2025-05-23 12:22 | DCINST_ITS ---
Discharge Instructions Diet Discharge Diet: Light diet - advance as tolerated Activity Discharge Activity: May Not Drive (while taking narcotic pain medications.) May shower in (days): 1 Lifting Restrictions: no lifting >20 lbs x 2 wks, no strenuous exercise for 4 wks Dressing / Incision Call your doctor if your incision/area has: Continuous Slow Oozing, Sudden Increased Bleeding, Increased Pain/ Swelling, Increased Redness, Foul Smelling Discharge and Swelling at the incision site Call your doctor if you observe: Fever of 101 or Higher Remove Dressing in: 2 days Cleanse incision/area with: Soap & Water Additional Dressing/Incision Instructions:: Steri-Strips will fall off in 7 to 10 days, if they do not fall off okay to remove after 10 days. Follow Up Care Please Follow Up With: Lashon Dhaliwal MD When: Call the office for a follow-up appointment 2 weeks; after 5 PM and on the weekends call [phone] with any concerns. Test Results: Test results from this visit will be discussed in further detail at your follow- up appointment, if applicable. Discharge Plan Admission Attending Provider: Lashon Dhaliwal Primary Care Provider: Zana Vásquez Consulting Providers: Ramirez Castellon Instructions Additional Instructions / Restrictions: Apply nystatin to right groin and left if needed twice daily for yeast infection Print Language: Luxembourgish Discharge Orders/Prescriptions Prescriptions: New nystatin 100,000 unit/gram powder 1 applic topical BID Qty: 60 1RF tramadol 50 mg tablet 50 mg PO Q6H PRN (Reason: pain) Qty: 10 0RF Continued magnesium 250 mg tablet 250 mg PO DAILY levothyroxine [Synthroid] 112 mcg tablet 112 mcg PO DAILY carbidopa-levodopa 50-200 mg tablet extended release 1 tab PO QHS Qty: 30 2RF escitalopram oxalate 20 mg tablet 20 mg PO QDAY Qty: 30 2RF mirtazapine 30 mg tablet 30 mg PO QHS Qty: 30 2RF ergocalciferol (vitamin D2) 1,250 mcg (50,000 unit) capsule 1,250 mcg PO QWEEK multivitamin 1 EACH tablet 2 tab PO DAILY acetaminophen 500 mg tablet 1,000 mg PO Q8 PRN (Reason: Check with primary doctor) dorzolamide-timolol 22.3-6.8 mg/mL drops 1 drp [facility] drops 1 drp LEFT EYE DAILY metoprolol tartrate 25 mg tablet 25 mg PO DAILY Rytary 48.75-195 mg capsule, extended release 2 cap PO 4X/DAY albuterol sulfate [Ventolin HFA] 90 mcg/actuation HFA aerosol inhaler 2 puff inhalation Q4H PRN (Reason: shortness of breath or wheezing) Qty: 18 6RF lisinopril 5 mg tablet 5 mg PO DAILY Qty: 90 3RF amiodarone 200 mg tablet 200 mg PO DAILY Qty: 90 3RF Held Eliquis 5 mg tablet 5 mg PO BID Qty: 180 3RF Hold Instructions: Resume on 05/25/25. Referrals / Follow Up: Zana Vásquez MD [Primary Care Provider] - Disposition Disposition (needs filled in before D/C Order can be placed): Home, Self Care
--- NOTE | 2025-05-23 12:44 | PCM.POST.ANE ---
Anesthesia: Postop Eval I Current Vital Signs Temperature: 97.2 F Pulse Rate: 64 Blood Pressure: 163/103 Respiratory Rate: 16 Pulse Ox: 95 Oxygen Delivery Method: Room Air Assessment Airway patent: Yes Spontaneous unlabored respirations: Yes Mental status: Awake nausea: No Vomiting: No Anesthesia Complication: No Fluid Hydration Crystalloid volume administer (ml): 1,300 Total IV fluid infused: 1,300 Progress Note Anesthesia document: Postop Eval 1 completed: Yes
--- NOTE | 2025-05-23 13:29 | POSTOPAN2_ITS ---
Anesthesia Postop Eval I Sum Postop Eval Completion status Anesthesia document: Postop Eval 1 completed: Yes Anesthesia Postop Eval I Summary Anesthesia Postop Eval I Summary: Anesthesia Postop Eval I: Assessment Summary Airway patent Yes 05/23/25 12:45 [email or web address] Spontaneous unlabored Yes 05/23/25 12:45 HUMANE [email or web address] respirations Mental status Awake 05/23/25 12:45 [email or web address] nausea No 05/23/25 12:45 HUMANE [email or web address] Vomiting No 05/23/25 12:45 [email or web address] Anesthesia Postop Eval I: Fluid Summary Crystalloid volume administer 1,300 05/23/25 12:45 [email or web address] (ml) Colloids volume administered ( ml) Blood Product volume administered (ml) Total IV fluid infused 1,300 05/23/25 12:45 HUMANE [email or web address] Anesthesia Postop Eval I: Summary Notes Anesthesia Complication No 05/23/25 12:45 HUMANE [email or web address] Anesthesia Complication Comment: Post-operative progress note Anesthesia: Postop Eval II Evaluation Mental status: Awake and Calm Pain Level: 0 nausea: No Vomiting: No Complications Anesthesia Complication: No
--- NOTE | 2025-05-23 13:29 | PCM.POSTANE2 ---
Anesthesia Postop Eval I Sum Postop Eval Completion status Anesthesia document: Postop Eval 1 completed: Yes Anesthesia Postop Eval I Summary Anesthesia Postop Eval I Summary: Anesthesia Postop Eval I: Assessment Summary Airway patent Yes 05/23/25 12:45 [email or web address] Spontaneous unlabored Yes 05/23/25 12:45 [email or web address] respirations Mental status Awake 05/23/25 12:45 [email or web address] nausea No 05/23/25 12:45 HOSPITAL [email or web address] Vomiting No 05/23/25 12:45 [email or web address] Anesthesia Postop Eval I: Fluid Summary Crystalloid volume administer 1,300 05/23/25 12:45 [email or web address] (ml) Colloids volume administered ( ml) Blood Product volume administered (ml) Total IV fluid infused 1,300 05/23/25 12:45 HOSPITAL [email or web address] Anesthesia Postop Eval I: Summary Notes Anesthesia Complication No 05/23/25 12:45 HOSPITAL [email or web address] Anesthesia Complication Comment: Post-operative progress note Anesthesia: Postop Eval II Evaluation Mental status: Awake and Calm Pain Level: 0 nausea: No Vomiting: No Complications Anesthesia Complication: No
== END 2025-05-23 14:26 | disposition home or self-care (01) ==
LOC: SDC 09:48 → AC 09:48
PROVIDERS: Anesthesiology; PCP Family Medicine; Referring Provider Surgery; Visit Provider Surgery
PROC: 0FT44ZZ Resection of Gallbladder, Percutaneous Endoscopic Approach (ICD-10-PCS; CPT 47562; principal; 2025-05-23 10:55)
DX: K80.10 Calculus of gallbladder with chronic cholecystitis without obstruction (principal); G20.A1 Parkinson's disease without dyskinesia, without mention of fluctuations; J44.9 Chronic obstructive pulmonary disease, unspecified; K42.9 Umbilical hernia without obstruction or gangrene; K82.8 Other specified diseases of gallbladder; K21.9 Gastro-esophageal reflux disease without esophagitis; I10 Essential (primary) hypertension; Z79.899 Other long term (current) drug therapy
CPT/HCPCS: 47563; 49591; S2900; 00790; 36415; 80048; 84443; 85027; 88304; 93005; J2405

== ENCOUNTER → 2025-07-06 | Outpatient (CLI) | payer OTHER, SELFPAY ==
--- NOTE | 2025-07-06 09:30 | RAD_ITS ---
PROCEDURE: KNEE 3 VIEWS 07/06/2025 REASON FOR EXAM: BILATERAL KNEE PAIN TECHNIQUE: KNEE 3 VIEWS COMPARISON: 10/16/2021. FINDINGS: No evidence of acute fracture or dislocation. Moderate degenerative changes of the left knee. Suprapatellar enthesophyte. No knee joint effusion. RAD/Knee 3 Views IMPRESSION: No acute osseous abnormality. Osteoarthrosis. Reading Location: [id number]
--- NOTE | 2025-07-06 09:46 | RAD_ITS ---
PROCEDURE: KNEE 3 VIEWS 07/06/2025 REASON FOR EXAM: BILATERAL KNEE PAIN TECHNIQUE: KNEE 3 VIEWS COMPARISON: 10/16/2021 FINDINGS: Moderate medial femorotibial joint space narrowing, osteophytes. Small joint space loose body. Patellar and tibial tuberosity enthesophyte. No acute bone or soft tissue pathology. RAD/Knee 3 Views IMPRESSION: Moderate right knee osteoarthritis. Reading [facility]
== END | disposition home or self-care (01) ==
LOC: MTRAD 09:46
PROVIDERS: PCP Family Medicine; Referring Provider Psychiatry & Neurology Neurology; Visit Provider Psychiatry & Neurology Neurology
DX: M25.561 Pain in right knee (principal); M25.562 Pain in left knee
CPT/HCPCS: 73562